=== PATIENT | female | born 1940 | race Caucasian/White ===

== ENCOUNTER 2017-05-14 18:30 | Inpatient (IN) | payer MEDICARE, OTHER ==
[~2017-05-14] VITALS: Ht 165.1 cm; Wt 45.4 kg
[~2017-05-14 18:30] MED LIST: AMBIEN5 MG ORAL; ATIVAN1 MG ORAL; BRIMONIDINE TART5 ML BOTH EYES; CAL-CITRATE W/200 MG GT; DiphenhydrAMINE 50mg/ml Inj ONE; EPINEPHrine 1mg/1ml Amp ONE; FERROUS SULFAT325 MG ORAL; FOLIC ACID1 MG ORAL; LEVAQUIN500 MG ORAL; MELATONIN3 M2 PO; MULTIVITAMINS1 EAC8 ORAL; ZYPREXA20 MG ORAL; ZYPREXA5 MG ORAL
[2017-05-14] MEDS ORDERED: Cefepime HCl 1 GM in NS 55 ML IV SCH (19:00)
[2017-05-14] MEDS ORDERED: NS 1000ml 1,400 ML IVLG ONE (19:00)
[2017-05-14] MEDS ORDERED: Cefepime 1gm vial ONE (19:50)
[2017-05-14] MEDS ORDERED: ZyPREXA Zydis 10mg tab ORAL ONE (20:00)
[2017-05-14 20:12] LABS: MEAN CORPUSCULAR HEMOGLOBIN 28.4 PG (27.0-31.0); MEAN CORPUSCULAR HGB CONC 32.6 G/DL (32.0-36.0); MEAN CORPUSCULAR VOLUME 87 FL (80-99); MEAN PLATELET VOLUME 6.3 FL (6.5-10.1); PLATELET COUNT 209 K/UL (150-450); RED BLOOD COUNT 3.01 M/UL (4.20-5.40); RED CELL DISTRIBUTION WIDTH 15.2 % (11.6-14.8)
[2017-05-14 20:31] LABS: TROPONIN I < 0.30 ng/mL (<=0.30)
[2017-05-14 20:34] LABS: ALANINE AMINOTRANSFERASE 8 U/L (3-33); ALBUMIN/GLOBULIN RATIO 0.5 (1.0-2.7); ANION GAP 13 (5-15); ASPARTATE AMINO TRANSFERASE 13 U/L (5-40); CALCIUM 9.4 mg/dL (8.6-10.2); CARBON DIOXIDE 25 mEQ/L (20-30); CHLORIDE 104 mEQ/L (98-107); CREATININE 1.5 mg/dL (0.5-0.9); HEMOLYSIS 0; POTASSIUM 4.6 mEQ/L (3.4-4.9); SODIUM 142 mEQ/L (135-145); TOTAL PROTEIN 9.1 g/dL (6.6-8.7)
--- NOTE | 2017-05-14 20:42 | Emergency Room Report ---
History of Present Illness General Chief Complaint: Abnormal Labs Source: Patient Present Illness HPI This patient presents from a custodial facility. She has a history of severe dementia. She presents for abnormal labs. The patient has a history of frequent urinary tract infections. She has been on Macrobid for the past 10 days it. She continues to have an elevated white blood cell count. She also has a urinary stent and had planned removal but it has not been removed yet. The patient has no specific complaints. She also has a history of schizophrenia. She has a history of chronic kidney disease. There are no other complaints. Allergies: Coded Allergies: MORPHINE (Verified Allergy, Unknown, 07/18/09) Patient History Past Medical History: see triage record, old chart reviewed, psych hx, renal disease Past Surgical History: other - ureteral stent Social History: Denies: smoking, alcohol use, drug use Reviewed Nursing Documentation: PMH: Agreed, PSxH: Agreed Nursing Documentation-PMH Hx Cardiac Problems: Yes - right rib fx, anemia History Of Psychiatric Problem: Yes Review of Systems All Other Systems: negative except mentioned in HPI Physical Exam Vital Signs Date Time Temp Pulse Resp B/P (MAP) Pulse Ox O2 Delivery O2 Flow Rate FiO2 05/14/17 18:33 97.3 68 18 152/82 96 Room Air Sp02 EP Interpretation: reviewed, normal General Appearance: no apparent distress, alert, GCS 15, non-toxic Head: normocephalic, atraumatic Eyes: bilateral eye normal inspection, bilateral eye PERRL ENT: hearing grossly normal, normal pharynx, no angioedema, normal voice Neck: full range of motion, supple/symm/no masses Respiratory: chest non-tender, lungs clear, normal breath sounds, speaking full sentences Cardiovascular #1: regular rate, rhythm, no edema Gastrointestinal: normal bowel sounds, non tender, soft, non-distended, no guarding, no rebound Rectal: deferred Musculoskeletal: back normal, normal range of motion, non-tender Neurologic: alert, responsive, motor strength/tone normal, speech normal, other - Oriented to self only Psychiatric: judgement/insight normal, memory normal, mood/affect normal, no suicidal/homicidal ideation Skin: warm/dry, well hydrated, other - See RN skin exam Medical Decision Making Diagnostic Impression: Primary Impression: UTI (urinary tract infection) Additional Impressions: Leukocytosis Anemia ER Course This patient has been on oral antibiotics at a custodial facility for ongoing recurrent urinary tract infection. She is a refill stent. She continues to have a urinary tract infection and has a leukocytosis. She is given broad-spectrum antibiotics and IV fluids. She is stable and well appearing overall. No evidence of sepsis at this time. The patient will be admitted for further evaluation and treatment of her resistant urinary tract infection and further evaluation by urology. Laboratory Tests Test 05/14/17 19:40 05/14/17 21:20 White Blood Count 13.0 K/UL (4.8-10.8) H Red Blood Count 3.01 M/UL (4.20-5.40) L Hemoglobin 8.6 G/DL (12.0-16.0) L Hematocrit 26.2 % (37.0-47.0) L Mean Corpuscular Volume 87 FL (80-99) Mean Corpuscular Hemoglobin 28.4 PG (27.0-31.0) Mean Corpuscular Hemoglobin Concent 32.6 G/DL (32.0-36.0) Red Cell Distribution Width 15.2 % (11.6-14.8) H Platelet Count 209 K/UL (150-450) Mean Platelet Volume 6.3 FL (6.5-10.1) L Neutrophils (%) (Auto) % (45.0-75.0) Lymphocytes (%) (Auto) % (20.0-45.0) Monocytes (%) (Auto) % (1.0-10.0) Eosinophils (%) (Auto) % (0.0-3.0) Basophils (%) (Auto) % (0.0-2.0) Differential Total Cells Counted 100 Neutrophils % (Manual) 38 % (45-75) L Lymphocytes % (Manual) 55 % (20-45) H Monocytes % (Manual) 5 % (1-10) Eosinophils % (Manual) 2 % (0-3) Basophils % (Manual) 0 % (0-2) Band Neutrophils 0 % (0-8) Platelet Estimate Adequate Platelet Morphology Normal Hypochromasia 1+ Anisocytosis 1+ Sodium Level 142 mEQ/L (135-145) Potassium Level 4.6 mEQ/L (3.4-4.9) Chloride Level 104 mEQ/L (98-107) Carbon Dioxide Level 25 mEQ/L (20-30) Anion Gap 13 (5-15) Blood Urea Nitrogen 38 mg/dL (7-23) H Creatinine 1.5 mg/dL (0.5-0.9) H Estimate Glomerular Filtration Rate mL/min (>60) Glucose Level 96 mg/dL (74-106) Lactic Acid Level 1.50 mmol/L (0.66-2.22) Calcium Level 9.4 mg/dL (8.6-10.2) Total Bilirubin 0.3 mg/dL (0.0-1.2) Aspartate Amino Transferase (AST) 13 U/L (5-40) Alanine Aminotransferase (ALT) 8 U/L (3-33) Alkaline Phosphatase 61 U/L (35-104) Total Creatine Kinase 36 U/L (26-140) Creatine Kinase MB 2.4 ng/mL (< 3.8) Creatine Kinase MB Relative Index 6.6 Troponin I < 0.30 ng/mL (<=0.30) Total Protein 9.1 g/dL (6.6-8.7) H Albumin 3.2 g/dL (3.5-5.2) L Globulin 5.9 g/dL Albumin/Globulin Ratio 0.5 (1.0-2.7) L Urine Color Red Urine Appearance Slightly cloudy Urine pH 8 (4.5-8.0) Urine Specific Grand Chain 1.015 (1.005-1.035) Urine Protein 4+ (NEGATIVE) H Urine Glucose (UA) Negative (NEGATIVE) Urine Ketones Negative (NEGATIVE) Urine Occult Blood 5+ (NEGATIVE) H Urine Nitrite Negative (NEGATIVE) Urine Bilirubin Negative (NEGATIVE) Urine Urobilinogen Normal MG/DL (0.0-1.0) Urine Leukocyte Esterase 3+ (NEGATIVE) H Urine RBC 60-80 /HPF (0 - 2) H Urine WBC 10-15 /HPF (0 - 2) H Urine Squamous Epithelial Cells Few /LPF (NONE/OCC) Urine Amorphous Sediment Few /LPF (NONE) H Urine Bacteria Moderate /HPF (NONE) H EKG Diagnostic Results Rate: normal Rhythm: NSR ST Segments: no acute changes Rhythm Strip Diag. Results EP Interpretation: yes Rate: 60's Rhythm: NSR, no PVC's, no ectopy Last Vital Signs Date Time Temp Pulse Resp B/P (MAP) Pulse Ox O2 Delivery O2 Flow Rate FiO2 05/14/17 18:33 97.3 68 18 152/82 96 Room Air Disposition: ADMITTED INPATIENT Condition: Stable Referrals: Pedro Ma MD (PCP) AIMEE ALLEN D.O. May 14, 2017 20:42
[2017-05-14 20:44] LABS: CKMB 2.4 ng/mL (< 3.8)
[2017-05-14 21:12] VITALS: BP 114/52
[2017-05-14 21:13] LABS: ANISOCYTOSIS 1+; BAND NEUTROPHILS % (MANUAL) 0 % (0-8); BASOPHILS % (MANUAL) 0 % (0-2); EOSINOPHILS % (MANUAL) 2 % (0-3); HYPOCHROMASIA 1+; LYMPHOCYTES % (MANUAL) 55 % (20-45); NEUTROPHILS % (MANUAL) 38 % (45-75); PLATELET ESTIMATE ADEQUATE; PLATELET MORPHOLOGY NORMAL; TOTAL CELLS COUNTED 100
[2017-05-14 21:31] LABS: KETONES,URINE NEGATIVE (NEGATIVE); LEUKOCYTE ESTERASE ,URINE 3+ (NEGATIVE); NITRITE,URINE NEGATIVE (NEGATIVE); PH,URINE 8 (4.5-8.0); PROTEIN,URINE 4+ (NEGATIVE); UROBILINOGEN,URINE NORMAL MG/DL (0.0-1.0)
[2017-05-14 21:42] LABS: APPEARANCE,URINE SLIGHTLY CLOUDY
[2017-05-14 21:58] LABS: RBC,URINE 60-80 /HPF (0 - 2)
[2017-05-14 21:59] LABS: AMORPHOUS SEDIMENT,UR FEW /LPF; BACTERIA,URINE MODERATE /HPF; SQUAMOUS EPITHELIAL CELL,UR FEW /LPF (NONE/OCC)
[2017-05-14 22:16] VITALS: BP 115/49
[2017-05-14] MEDS ORDERED: VITAMIN C500 M1 ORAL (22:36)
[2017-05-14] MEDS ORDERED: DOCUSATE SODIU100 MG ORAL (22:36)
[2017-05-14] MEDS ORDERED: BISACODYL5 MG ORAL (22:36)
[2017-05-14] MEDS ORDERED: CRANBERRY450 M4 PO (22:36)
[2017-05-14] MEDS ORDERED: TYLENOL EXTRA500 MG ORAL (22:36)
[2017-05-14] MEDS ORDERED: MILK OF MA2400 MG/10 ORAL (22:36)
[2017-05-15] MEDS ORDERED: LORazepam 1mg tab ORAL PRN (00:30)
[2017-05-15] MEDS ORDERED: Zolpidem 5mg tab ORAL PRN (00:30)
[2017-05-15] MEDS ORDERED: Norco 5mg/325mg tab ORAL PRN (00:30)
[2017-05-15] MEDS: D5NS 1,000 ML IV SCH ×2 (02:48→14:30)
[2017-05-15] MEDS ORDERED: Vancomycin 750mg/NS 250ml IVPB ONE (03:00)
[2017-05-15] MEDS: Enoxaparin 30mg Inj SUBQ SCH (09:00)
[2017-05-15] MEDS: Multivitamin w/Minerals tab ORAL SCH (09:00)
[2017-05-15] MEDS: Brimonidine 0.2% Opth Sol BOTH EYES SCH ×3 (09:00→18:00)
[2017-05-15] MEDS: Ascorbic Acid 500mg tab ORAL SCH (09:26)
[2017-05-15] MEDS: Bisacodyl EC 5mg tab ORAL SCH (09:26)
[2017-05-15] MEDS: Docusate 100mg cap ORAL SCH ×2 (09:26→18:00)
[2017-05-15] MEDS ORDERED: Haloperidol 5mg/ml Inj IM PRN (10:45)
[2017-05-15] MEDS: Haloperidol 5mg/ml Inj IM PRN (14:53)
--- NOTE | 2017-05-15 15:16 | History & Physical ---
History and Physical History & Physicial seen and examined. Dictation # [id number] Pedro Ma MD May 15, 2017 15:16
--- NOTE | 2017-05-15 17:57 | Consultation ---
Consult Note Consult Note # [id number] YANG AL M.D. May 15, 2017 17:57
[2017-05-15] MEDS ORDERED: Cefepime HCl 1 GM in D5W 55 ML IVPB SCH (20:00)
[2017-05-15] MEDS: Milk of Magnesia 30ml Ud ORAL SCH (20:30)
--- NOTE | 2017-05-15 23:24 | Consultation ---
History of Present Illness General Chief Complaint: Abnormal Labs Present Illness HPI 77 yo female patient presents from a shelter facility. She has a history of dementia. She presents for abnormal labs. The patient has a history of frequent urinary tract infections, on Macrobid for the past 10 days it. the pt has been refusing care and refused meds. the pt is on 1:1. pt has cognitive impairment and is agitated. the pt lacks capacity Allergies: Coded Allergies: MORPHINE (Verified Allergy, Unknown, 07/18/09) Medication History Scheduled Ascorbic Acid* (Vitamin C*), 500 MG ORAL DAILY, (Reported) Bisacodyl* (Dulcolax*), 10 MG ORAL DAILY, (Reported) Brimonidine Tartrate* (Alphagan*), 1 DROP BOTH EYES TID, (Reported) Cranberry Fruit Concentrate (Cranberry), 450 MG PO BID, (Reported) Docusate Sodium* (Docusate Sodium*), 100 MG ORAL TWICE A DAY, (Reported) Ferrous Sulfate* (Ferrous Sulfate*), 325 MG ORAL THREE TIMES A DAY, (Reported) Folic Acid* (Folic Acid*), 1 MG ORAL DAILY, (Reported) Levofloxacin* (Levaquin*), 500 MG ORAL DAILY, (Reported) Magnesium Hydroxide* (Milk Of Magnesia*), 30 ML ORAL BEDTIME, (Reported) Multivitamin With Minerals (Multivitamins With Minerals*), 1 TAB ORAL DAILY, ( Reported) Olanzapine (Zyprexa), 20 MG ORAL BEDTIME, (Reported) Olanzapine* (Zyprexa*), 5 MG ORAL TID, (Reported) Scheduled PRN Acetaminophen* (Tylenol Extra Strength*), 650 MG ORAL Q4HR PRN for Mild Pain/ Temp > 100.5, (Reported) Lorazepam* (Ativan*), 1 MG ORAL Q4HR PRN for For Anxiety, (Reported) Zolpidem Tartrate* (Ambien*), 5 MG ORAL BEDTIME PRN for Insomnia, (Reported) Miscellaneous Medications Calcium Carbonate (Calcium Carbonate), 500 MG GT, (Reported) Melatonin (Melatonin), 3 MG PO, (Reported) Patient History Limited by: medical condition History Provided By: Patient, Medical Record, PMD Healthcare decision maker Resuscitation status Full Code Advanced Directive on File Yes Past Medical/Surgical History Past Medical/Surgical History: (1) Anemia (2) UTI (urinary tract infection) (3) Leukocytosis Review of Systems Constitutional: Reports: malaise, weakness Psychiatric: Reports: prior hx, anxiety, depressed feelings, emotional problems Physical Exam General Appearance: no apparent distress, alert, confused, agitated, thin Neurologic: alert, oriented x 3, responsive, depressed affect Height (Feet): 5 Height (Inches): 5.00 Weight (Pounds): 100 Medications Current Medications Medications (Trade) Dose Ordered Sig/Marcos Route PRN Reason Start Time Stop Time Status Last Admin Dose Admin Acetaminophen (Tylenol) 650 mg Q4H PRN ORAL Mild Pain/Temp > 100.5 05/15/17 00:30 06/14/17 00:29 Acetaminophen/ Hydrocodone Bitart ([place] 5/325) 1 tab Q6H PRN ORAL Severe Pain (Pain Scale 7-10) 05/15/17 00:30 05/22/17 00:29 Ascorbic Acid (Vitamin C) 500 mg DAILY ORAL 05/15/17 09:00 06/14/17 08:59 05/15/17 09:26 Bisacodyl (Dulcolax) 10 mg DAILY ORAL 05/15/17 09:00 06/14/17 08:59 05/15/17 09:26 Brimonidine Tartrate (Alphagan) 1 drop TID BOTH EYES 05/15/17 09:00 06/14/17 08:59 Dextrose/Sodium Chloride 1,000 ml @ 80 mls/hr [id number] IV 05/15/17 02:00 06/14/17 01:59 05/15/17 02:48 Docusate Sodium (Colace) 100 mg TWICE A DAY ORAL 05/15/17 09:00 06/14/17 08:59 05/15/17 09:26 Enoxaparin Sodium (Lovenox) 30 mg DAILY SUBQ 05/15/17 09:00 06/14/17 08:59 Ferrous Sulfate (Feosol) 325 mg THREE TIMES A DAY ORAL 05/15/17 09:00 06/14/17 08:59 05/15/17 09:26 Folic Acid (Folate) 1 mg DAILY ORAL 05/15/17 09:00 06/14/17 08:59 Haloperidol Lactate (Haldol) 5 mg Q6H PRN IM Agitation 05/15/17 16:45 06/14/17 16:44 05/15/17 14:53 Levofloxacin (Levaquin) 750 mg Q48H ORAL 05/15/17 11:00 05/22/17 10:59 Lorazepam (Ativan) 1 mg Q4H PRN ORAL For Anxiety 05/15/17 01:45 05/22/17 01:44 Magnesium Hydroxide (Mom) 30 ml BEDTIME ORAL 05/15/17 21:00 06/14/17 20:59 Multivitamins Therapeutic (Therapeutic Multivitamin) 1 ea DAILY ORAL 05/15/17 09:00 06/14/17 08:59 Olanzapine (ZyPREXA) 5 mg TID ORAL 05/15/17 09:00 06/14/17 08:59 05/15/17 09:26 Pantoprazole (Protonix) 40 mg DAILY ORAL 05/15/17 09:00 06/14/17 08:59 05/15/17 09:26 Zolpidem Tartrate (Ambien) 5 mg BEDTIME PRN ORAL Insomnia 05/15/17 00:30 05/22/17 00:29 Assessment/Plan Status: unchanged Assessment/Plan haldol im encephalopathy Manolo Reyes M.D. May 15, 2017 23:24
--- NOTE | 2017-05-16 00:16 | History and Physical Report ---
DATE OF ADMISSION: 05/14/2017 SOURCE OF INFORMATION: EMR. HISTORY OF PRESENT ILLNESS: The patient is a 77-year-old white female. Currently, lives in a senior care. She is stent post stent placement in the ureter secondary to obstructive uropathy. The patient was found to have abnormal blood work with the leukocytosis. The patient was presented and transferred for additional evaluation at the time of evaluation. PAST MEDICAL HISTORY: Anemia, obstructive uropathy at the level of urethra, psychiatric disorder, and insomnia. PAST SURGICAL HISTORY: Ureteral stent placement about three to four months ago. MEDICATIONS: Current hospital medications including , ferrous sulfate, Levaquin, and melatonin. ALLERGIES: To morphine. SOCIAL HISTORY: The patient is currently resident of a [facility] facility. The patient denies any history of smoking, alcohol abuse, or drug abuse. REVIEW OF SYSTEMS: Shows the patient denies chest pain or shortness of breath. The patient is not verbally communicate voluntarily. Limited source of information. All 12 elements of review of system are reviewed and as follows. Pertinent negatives and positives as detailed above. PHYSICAL EXAMINATION: VITAL SIGNS: Blood pressure 150/80, temperature 98.2 degrees, pulse oximetry 98% on room air, respiratory rate 18, and pulse rate 70 to 80. HEAD AND NECK: Atraumatic and normocephalic. CHEST: Clear to auscultation. Remainder of examination cannot be obtained as the patient refused. LABORATORY AND DIAGNOSTIC DATA: Labs dated 05/14/2017 showed WBC 13, hemoglobin 8.6, and platelets 209,000. Sodium 142, potassium 4.6, BUN 38, and creatinine 1.5. Total protein 9.1. Urinalysis shows WBC 10-15, occult blood 5+, protein 4+, and bacteria moderate. ASSESSMENT: 1. Pyelonephritis. 2. Obstructive uropathy at the level of the ureter, status post stent placement. 3. Hypertension. 4. Renal failure likely acute on chronic. 5. Anemia. 6. Refusal of medical care. 7. Psychiatric disorder. 8. Gastrointestinal and deep vein thrombosis prophylaxis. PLAN OF CARE: We will start the empiric antibiotic regimens of vancomycin and cefepime. Infectious Disease, Dr. Baeza and Urology, Dr. Aneesh Shaikh are consulted and notified. Psychiatrist, Dr. Reyes notified. We will resume the senior care medications. We will monitor the hemoglobin. Pedro Ma M.D. DR: Michelle JOB#: [id number] CC:
[2017-05-16] MEDS: D5NS 1,000 ML IV SCH ×2 (02:02→18:41)
[2017-05-16] MEDS ORDERED: Vancomycin 500mg/D5W 110ml IVPB SCH ×2 (03:00)
--- NOTE | 2017-05-16 03:15 | Consultation ---
DATE OF CONSULTATION: 05/15/2017 UROLOGY CONSULTATION ATTENDING/CONSULTING PHYSICIAN: Pedro Ma M.D. CHIEF COMPLAINT AND HISTORY OF PRESENT ILLNESS: I was asked by Dr. Ma to evaluate this unfortunate 77-year-old female regarding history of urinary tract infection/pyelonephritis. Briefly, the patient has a history of advanced dementia and cannot provide much information. She has a history of recurrent urinary tract infections and presents from a retirement facility with recurrent urinary tract infection. She has been on Macrobid for the last 10 days for the same. She has a urinary stent in place for stone disease and has plan to removal for same, but has not been removed yet. Given the above, I was asked to evaluate the patient. PAST MEDICAL HISTORY: 1. Dementia. 2. Schizophrenia. 3. Chronic renal insufficiency. 4. Urinary tract infection. 5. Nephrolithiasis. PAST SURGICAL HISTORY: Cystoscopy with ureteral stent placement. MEDICATIONS: Please see the chart for current medications and administration details. ALLERGIES: Include morphine. SOCIAL HISTORY: Unremarkable for tobacco, alcohol, or drug use. The patient is demented and lives in a retirement facility. FAMILY HISTORY: Noncontributory. REVIEW OF SYSTEMS: A 12-system review of systems cannot be done as the patient cannot cooperate with questioning. PHYSICAL EXAMINATION: GENERAL: The patient is an elderly female, resting comfortably, in no obvious distress. VITAL SIGNS: Afebrile, vital signs stable. HEENT: NC/AT. NECK: Supple. Full range of motion. CHEST: Within normal limits. ABDOMEN: Soft, nontender, and nondistended. EXTREMITIES: Warm and well perfused. No cyanosis, clubbing, or edema. BACK: No apparent CVA tenderness to percussion. NEUROLOGIC: Notable for dementia. LABORATORY DATA: Sodium 142, potassium 4.6, chloride 104, bicarbonate 25, BUN 38, creatinine 1.8, and glucose 96. Lactic acid 1.5. LFTs within normal limits. Alkaline phosphatase 61. Troponin negative. White blood cell count 13.0, hematocrit 26.2, and platelets 209,000. Urinalysis, specific gravity 1.015 and pH 8.0. Dip test notable for 4+ protein, 5+ occult blood, and 3+ leukocyte esterase. Microanalysis with 60 to 80 red blood cells per high-power field, 10 to 15 white blood cells per high-power field, and moderate bacteria seen. Urine culture is pending. DIAGNOSTIC IMAGING: None. ASSESSMENT AND PLAN: In summary, the patient is a 77-year-old female with a history of nephrolithiasis, status post double-J stent placement for the same. She is scheduled for followup with a urologist for removal of the same. She has a history of recurrent urinary tract infections and now presents with a urinary tract infection. Physical exam is essentially unremarkable. Laboratory data reveals evidence of a ureteral stent in place and also possible urinary tract infection. Culture is pending. There is no relevant diagnostic imaging. We should continue this patient on antibiotics until her urine culture returns, at which point, the antibiotics should be adjusted as necessary and she can be discharged on oral antibiotics. Once she is discharged and her infection is improved, she can follow up with her urologist, who put the stent in for stent removal as appropriate. Removing the stent at this time in an infected patient with possible obstruction from kidney stones can be potentially dangerous if the infection accumulates behind the stent. Thank you for allowing me to participate in the care of this nice lady. Please do not hesitate to contact me with any questions that you may further have regarding her care. I will be available to see her with you as needed. Aneesh Shaikh M.D. DR: ADARSH JOB#: [id number] CC:
[2017-05-16 07:23] LABS: BASOPHILS % (AUTO) 0.5 % (0.0-2.0); EOSINOPHILS % (AUTO) 0.7 % (0.0-3.0); LYMPHOCYTES % (AUTO) 51.4 % (20.0-45.0); MEAN CORPUSCULAR HEMOGLOBIN 26.5 PG (27.0-31.0); MEAN CORPUSCULAR HGB CONC 30.4 G/DL (32.0-36.0); MEAN CORPUSCULAR VOLUME 87 FL (80-99); MEAN PLATELET VOLUME 6.2 FL (6.5-10.1); MONOCYTES % (AUTO) 2.7 % (1.0-10.0); NEUTROPHILS % (AUTO) 44.7 % (45.0-75.0); PLATELET COUNT 212 K/UL (150-450); RED BLOOD COUNT 3.04 M/UL (4.20-5.40); RED CELL DISTRIBUTION WIDTH 14.9 % (11.6-14.8); WHITE BLOOD COUNT 11.4 K/UL (4.8-10.8)
[2017-05-16 07:48] LABS: ALANINE AMINOTRANSFERASE 9 U/L (3-33); ALBUMIN/GLOBULIN RATIO 0.4 (1.0-2.7); ANION GAP 13 (5-15); ASPARTATE AMINO TRANSFERASE 16 U/L (5-40); CALCIUM 9.3 mg/dL (8.6-10.2); CARBON DIOXIDE 23 mEQ/L (20-30); CHLORIDE 106 mEQ/L (98-107); CREATININE 1.3 mg/dL (0.5-0.9); HEMOLYSIS 1; POTASSIUM 4.1 mEQ/L (3.4-4.9); SODIUM 142 mEQ/L (135-145); TOTAL PROTEIN 8.6 g/dL (6.6-8.7)
[2017-05-16] MEDS: Bisacodyl EC 5mg tab ORAL SCH (09:00)
[2017-05-16] MEDS: Enoxaparin 30mg Inj SUBQ SCH (09:00)
[2017-05-16] MEDS: Ascorbic Acid 500mg tab ORAL SCH (09:00)
[2017-05-16] MEDS: Brimonidine 0.2% Opth Sol BOTH EYES SCH ×3 (09:00→18:40)
[2017-05-16] MEDS: Docusate 100mg cap ORAL SCH ×2 (09:00→18:40)
[2017-05-16] MEDS: Multivitamin w/Minerals tab ORAL SCH (09:00)
[2017-05-16] MEDS ORDERED: LORazepam Inj 2mg/ml 1ml IM ONE (10:45)
[2017-05-16] MEDS: Haloperidol 5mg/ml Inj IM PRN (11:01)
--- NOTE | 2017-05-16 11:15 | Consultation ---
DATE OF CONSULTATION: INFECTIOUS DISEASES CONSULTATION REFERRING PHYSICIAN: Pedro Ma M.D. REASON FOR CONSULTATION: Evaluation of the patient for sepsis, urinary tract infection, antibiotic management. HISTORY OF PRESENT ILLNESS: The patient is a 77-year-old poor historian, uncooperative, with severe dementia, who was admitted to this medical center with the impression of urinary tract infection. Apparently, the patient was on 10 days. However, the patient has leukocytosis and was admitted with the impression of urinary tract infection. Infectious Disease consultation has been requested for further evaluation of the patient and antibiotic management. PAST MEDICAL HISTORY: 1. Schizophrenia. 2. History of recent urinary tract infection. 3. Hypertension. 4. History of CKD. 5. Bipolar disorder. 6. Depression. 7. Anemia. 8. Anxiety. MEDICATIONS: Vancomycin and Levaquin. ALLERGIES: Morphine. SOCIAL HISTORY: The patient lives in a [facility]ci. FAMILY HISTORY: Unavailable. REVIEW OF SYSTEMS: The patient is uncooperative. PHYSICAL EXAMINATION: VITAL SIGNS: Temperature is 97.4 degrees, pulse 70, respiratory rate 18, and blood pressure 115/49. HEENT: No pale conjunctivae. CHEST: The patient is uncooperative with the exam, refused. ABDOMEN: The patient refused exam. : The patient refused. EXTREMITIES: No cyanosis at this time. No edema. NEUROLOGIC: Awake and confused. LABORATORY AND DIAGNOSTIC DATA: White blood cells 13, hemoglobin 8.6, and platelets 209,000. UA, 60 to 80 red blood cells and 10 to 15 white blood cells. BUN 30 and creatinine 1.4. ALT, AST, and alkaline phosphatase unremarkable. Chest x-ray, minimal interstitial congestion is not excluded. Ultrasound of the abdomen is pending. Blood and urine culture is pending. ASSESSMENT: The patient is a 77-year-old female with multiple medical problems who has: 1. Leukocytosis. 2. Hematuria. 3. Probable urinary tract infection. 4. Rule out bacteremia. 5. Rule out renal stone or obstruction/urinary tract cancer. PLAN: 1. We will continue the patient on Levaquin. 2. Monitor CBC. 3. Monitor BMP. 4. Monitor cultures (blood, urine). 5. We will follow ultrasound of the abdomen and pelvis results. 6. Based on the patient's clinical course and labs, we will do further recommendations. Thank you, Dr. Polanco, for allowing me to participate in the care of this patient. I will follow the patient with you during this hospitalization. Ernesto Baeza M.D. DR: Ana JOB#: [id number] CC:
--- NOTE | 2017-05-16 15:01 | Geriatric Progress Note ---
Assessment/Plan Assessment/Plan psychosis, lacks capacity to make decision. no next of keen . -restraints prn -haldol Im prn -zyprexa 5mg qhs Subjective Mood/Memory: Reports: prior hx, anxiety, emotional problems - refusing care and treatment Psychiatric: Reports: hallucinations Geriatric Geriatric Laboratory Tests Test 05/16/17 05:15 White Blood Count 11.4 K/UL (4.8-10.8) H Red Blood Count 3.04 M/UL (4.20-5.40) L Hemoglobin 8.1 G/DL (12.0-16.0) L Hematocrit 26.5 % (37.0-47.0) L Mean Corpuscular Volume 87 FL (80-99) Mean Corpuscular Hemoglobin 26.5 PG (27.0-31.0) L Mean Corpuscular Hemoglobin Concent 30.4 G/DL (32.0-36.0) L Red Cell Distribution Width 14.9 % (11.6-14.8) H Platelet Count 212 K/UL (150-450) Mean Platelet Volume 6.2 FL (6.5-10.1) L Neutrophils (%) (Auto) 44.7 % (45.0-75.0) L Lymphocytes (%) (Auto) 51.4 % (20.0-45.0) H Monocytes (%) (Auto) 2.7 % (1.0-10.0) Eosinophils (%) (Auto) 0.7 % (0.0-3.0) Basophils (%) (Auto) 0.5 % (0.0-2.0) Sodium Level 142 mEQ/L (135-145) Potassium Level 4.1 mEQ/L (3.4-4.9) Chloride Level 106 mEQ/L (98-107) Carbon Dioxide Level 23 mEQ/L (20-30) Anion Gap 13 (5-15) Blood Urea Nitrogen 33 mg/dL (7-23) H Creatinine 1.3 mg/dL (0.5-0.9) H Estimat Glomerular Filtration Rate mL/min (>60) Glucose Level 75 mg/dL (74-106) Calcium Level 9.3 mg/dL (8.6-10.2) Total Bilirubin 0.4 mg/dL (0.0-1.2) Aspartate Amino Transf (AST/SGOT) 16 U/L (5-40) Alanine Aminotransferase (ALT/SGPT) 9 U/L (3-33) Alkaline Phosphatase 66 U/L (35-104) Total Protein 8.6 g/dL (6.6-8.7) Albumin 2.8 g/dL (3.5-5.2) L Globulin 5.8 g/dL Albumin/Globulin Ratio 0.4 (1.0-2.7) L Current Medications Medications (Trade) Dose Ordered Sig/Marcos Route PRN Reason Start Time Stop Time Status Last Admin Dose Admin Acetaminophen (Tylenol) 650 mg Q4H PRN ORAL Mild Pain/Temp > 100.5 05/15/17 00:30 06/14/17 00:29 Acetaminophen/ Hydrocodone Bitart ([place] 5/325) 1 tab Q6H PRN ORAL Severe Pain (Pain Scale 7-10) 05/15/17 00:30 05/22/17 00:29 Ascorbic Acid (Vitamin C) 500 mg DAILY ORAL 05/15/17 09:00 06/14/17 08:59 05/15/17 09:26 Bisacodyl (Dulcolax) 10 mg DAILY ORAL 05/15/17 09:00 06/14/17 08:59 05/15/17 09:26 Brimonidine Tartrate (Alphagan) 1 drop TID BOTH EYES 05/15/17 09:00 06/14/17 08:59 05/16/17 13:05 Dextrose/Sodium Chloride 1,000 ml @ 80 mls/hr [id number] IV 05/15/17 02:00 06/14/17 01:59 05/15/17 02:48 Docusate Sodium (Colace) 100 mg TWICE A DAY ORAL 05/15/17 09:00 06/14/17 08:59 05/15/17 09:26 Enoxaparin Sodium (Lovenox) 30 mg DAILY SUBQ 05/15/17 09:00 06/14/17 08:59 Ferrous Sulfate (Feosol) 325 mg THREE TIMES A DAY ORAL 05/15/17 09:00 06/14/17 08:59 05/16/17 13:04 Folic Acid (Folate) 1 mg DAILY ORAL 05/15/17 09:00 06/14/17 08:59 Haloperidol Lactate (Haldol) 5 mg Q6H PRN IM Agitation 05/15/17 16:45 06/14/17 16:44 05/16/17 11:01 Levofloxacin (Levaquin) 750 mg Q48H ORAL 05/15/17 11:00 05/22/17 10:59 Lorazepam (Ativan) 1 mg Q4H PRN ORAL For Anxiety 05/15/17 01:45 05/22/17 01:44 Magnesium Hydroxide (Mom) 30 ml BEDTIME ORAL 05/15/17 21:00 06/14/17 20:59 Multivitamins Therapeutic (Therapeutic Multivitamin) 1 ea DAILY ORAL 05/15/17 09:00 06/14/17 08:59 Olanzapine (ZyPREXA) 5 mg TID ORAL 05/15/17 09:00 06/14/17 08:59 05/16/17 13:04 Pantoprazole (Protonix) 40 mg DAILY ORAL 05/15/17 09:00 06/14/17 08:59 05/15/17 09:26 Zolpidem Tartrate (Ambien) 5 mg BEDTIME PRN ORAL Insomnia 05/15/17 00:30 05/22/17 00:29 Height (Feet): 5 Height (Inches): 5.00 Weight (Pounds): 100 General Appearance: alert, good eye contact, moderate distress, cachetic Neurologic: alert, responsive Psychiatric Behavior: uncooperative, psychomotor agitation Language/Speech: intact Orientation: disoriented Affect: restricted Thought Content: auditory hallucinations, grandiose hallucinations, persecutory delusions Manolo Reyes M.D. May 16, 2017 15:01
--- NOTE | 2017-05-16 16:06 | General Progress Note ---
Assessment/Plan Status: unchanged Assessment/Plan 1. Pyelonephritis. 2. Obstructive uropathy at the level of the ureter, status post stent placement. 3. Hypertension. 4. Renal failure likely acute on chronic. 5. AnemiaAcute on chornic 6. Refusal of medical care. 7. Psychiatric disorder. 8. No Capacity for making medical decisions. 8. Gastrointestinal and deep vein thrombosis prophylaxis. Plan; Given the Emergency Nature of current medical problem and potential life threatening consequence of refusing treatment, It is MEDICALLY JUSTIFIED to restraint and provide treament at this time Subjective ROS Limited/Unobtainable: Yes Allergies: Coded Allergies: MORPHINE (Verified Allergy, Unknown, 07/18/09) Objective Laboratory Tests 05/16/17 05:15: White Blood Count 11.4H, Red Blood Count 3.04L, Hemoglobin 8.1L, Hematocrit 26.5L, Mean Corpuscular Volume 87, Mean Corpuscular Hemoglobin 26.5L, Mean Corpuscular Hemoglobin Concent 30.4L, Red Cell Distribution Width 14.9H, Platelet Count 212, Mean Platelet Volume 6.2L, Neutrophils (%) (Auto) 44.7L, Lymphocytes (%) (Auto) 51.4H, Monocytes (%) (Auto) 2.7, Eosinophils (%) (Auto) 0.7, Basophils (%) (Auto) 0.5, Sodium Level 142, Potassium Level 4.1, Chloride Level 106, Carbon Dioxide Level 23, Anion Gap 13, Blood Urea Nitrogen 33H, Creatinine 1.3H, Estimat Glomerular Filtration Rate , Glucose Level 75, Calcium Level 9.3, Total Bilirubin 0.4, Aspartate Amino Transf (AST/SGOT) 16, Alanine Aminotransferase (ALT/SGPT) 9, Alkaline Phosphatase 66, Total Protein 8.6, Albumin 2.8L, Globulin 5.8, Albumin/Globulin Ratio 0.4L Height (Feet): 5 Height (Inches): 5.00 Weight (Pounds): 100 General Appearance: no apparent distress EENT: PERRL/EOMI Neck: supple Cardiovascular: normal rate Respiratory/Chest: lungs clear Abdomen: soft Extremities: other - atrophied musculature Neurologic: disoriented Pedro Ma MD May 16, 2017 16:06
[2017-05-16] MEDS ORDERED: Tubing IV Secondary IV ONE (17:39)
[2017-05-16] MEDS ORDERED: D5NS 1000ml IV ONE (17:39)
[2017-05-16 20:50] VITALS: BP 109/38
[2017-05-16] MEDS: Milk of Magnesia 30ml Ud ORAL SCH (21:47)
[2017-05-16] MEDS: ZyPREXA Zydis 5mg tab ORAL SCH (21:58)
[2017-05-16 23:59] VITALS: BP 110/55
[2017-05-17 02:41] LABS: MEAN CORPUSCULAR HEMOGLOBIN 27.2 PG (27.0-31.0); MEAN CORPUSCULAR HGB CONC 31.7 G/DL (32.0-36.0); MEAN CORPUSCULAR VOLUME 86 FL (80-99); MEAN PLATELET VOLUME 5.3 FL (6.5-10.1); PLATELET COUNT 216 K/UL (150-450); RED BLOOD COUNT 2.94 M/UL (4.20-5.40); RED CELL DISTRIBUTION WIDTH 14.5 % (11.6-14.8); WHITE BLOOD COUNT 11.8 K/UL (4.8-10.8)
[2017-05-17] MEDS: D5NS 1,000 ML IV SCH ×3 (03:02→18:30)
[2017-05-17 03:10] LABS: ALANINE AMINOTRANSFERASE 9 U/L (3-33); ALBUMIN/GLOBULIN RATIO 0.4 (1.0-2.7); ANION GAP 7 (5-15); ASPARTATE AMINO TRANSFERASE 19 U/L (5-40); CARBON DIOXIDE 25 mEQ/L (20-30); CHLORIDE 107 mEQ/L (98-107); CREATININE 1.6 mg/dL (0.5-0.9); HEMOLYSIS 0; POTASSIUM 4.1 mEQ/L (3.4-4.9); SODIUM 139 mEQ/L (135-145); TOTAL PROTEIN 8.2 g/dL (6.6-8.7)
[2017-05-17 04:00] VITALS: BP 129/50
[2017-05-17] MEDS: LORazepam 1mg tab ORAL PRN (09:42)
[2017-05-17] MEDS: Brimonidine 0.2% Opth Sol BOTH EYES SCH ×3 (09:43→17:59)
[2017-05-17] MEDS: Ascorbic Acid 500mg tab ORAL SCH (09:43)
[2017-05-17] MEDS: Docusate 100mg cap ORAL SCH ×2 (09:43→17:59)
[2017-05-17] MEDS: Bisacodyl EC 5mg tab ORAL SCH (09:43)
[2017-05-17] MEDS: Multivitamin w/Minerals tab ORAL SCH (09:44)
[2017-05-17] MEDS: Enoxaparin 30mg Inj SUBQ SCH (09:44)
[2017-05-17] MEDS: Haloperidol 5mg/ml Inj IM PRN (11:02)
--- NOTE | 2017-05-17 11:08 | Infectious Diseases Prog Note ---
Assessment/Plan Assessment/Plan ASSESSMENT: The patient is a 77-year-old female with Leukocytosis improving Probable urinary tract infection, UCx : Mixed GNR ( low count ) Hematuria.? hx of Urethral stent Schizophrenia History of recent urinary tract infection Hypertension History of CKD Bipolar disorder Depression Anemia Anxiety PLAN: continue the patient on Levaquin d# 4 / 7 Monitor CBC. Monitor BMP. Monitor cultures (blood, urine). ultrasound of the abdomen and pelvis results: P Uro is following Subjective Allergies: Coded Allergies: MORPHINE (Verified Allergy, Unknown, 07/18/09) Subjective confuse Objective Vital Signs Last 24 Hour Vital Signs Date Time Temp Pulse Resp B/P (MAP) Pulse Ox O2 Delivery O2 Flow Rate FiO2 05/17/17 05:10 97.5 61 05/17/17 04:00 96.8 57 20 129/50 96 Room Air 05/16/17 23:59 97.7 59 20 110/55 98 Room Air 05/16/17 20:50 98.7 70 19 109/38 98 Room Air Height (Feet): 5 Height (Inches): 5.00 Weight (Pounds): 100 HEENT: mucous membranes moist Respiratory/Chest: no respiratory distress Cardiovascular: normal rate Abdomen: soft, non tender Microbiology Date/Time Source Procedure Growth Status 05/14/17 19:45 Blood Blood Culture - Preliminary NO GROWTH AFTER 48 HOURS Resulted 05/14/17 19:35 Blood Blood Culture - Preliminary NO GROWTH AFTER 48 HOURS Resulted 05/14/17 21:20 Urine,Clean Catch Urine Culture - Final Mixed Gram Positive Organism Complete 05/14/17 22:22 Rectum VRE Culture - Final NO VANCOMYCIN RESISTANT ENTEROCOCCUS ... Complete Laboratory Tests Test 05/17/17 02:25 White Blood Count 11.8 K/UL (4.8-10.8) H Red Blood Count 2.94 M/UL (4.20-5.40) L Hemoglobin 8.0 G/DL (12.0-16.0) L Hematocrit 25.3 % (37.0-47.0) L Mean Corpuscular Volume 86 FL (80-99) Mean Corpuscular Hemoglobin 27.2 PG (27.0-31.0) Mean Corpuscular Hemoglobin Concent 31.7 G/DL (32.0-36.0) L Red Cell Distribution Width 14.5 % (11.6-14.8) Platelet Count 216 K/UL (150-450) Mean Platelet Volume 5.3 FL (6.5-10.1) L Neutrophils (%) (Auto) % (45.0-75.0) Lymphocytes (%) (Auto) % (20.0-45.0) Monocytes (%) (Auto) % (1.0-10.0) Eosinophils (%) (Auto) % (0.0-3.0) Basophils (%) (Auto) % (0.0-2.0) Sodium Level 139 mEQ/L (135-145) Potassium Level 4.1 mEQ/L (3.4-4.9) Chloride Level 107 mEQ/L (98-107) Carbon Dioxide Level 25 mEQ/L (20-30) Anion Gap 7 (5-15) Blood Urea Nitrogen 36 mg/dL (7-23) H Creatinine 1.6 mg/dL (0.5-0.9) H Estimat Glomerular Filtration Rate mL/min (>60) Glucose Level 114 mg/dL (74-106) H Calcium Level 9.0 mg/dL (8.6-10.2) Total Bilirubin 0.3 mg/dL (0.0-1.2) Aspartate Amino Transf (AST/SGOT) 19 U/L (5-40) Alanine Aminotransferase (ALT/SGPT) 9 U/L (3-33) Alkaline Phosphatase 53 U/L (35-104) Total Protein 8.2 g/dL (6.6-8.7) Albumin 2.6 g/dL (3.5-5.2) L Globulin 5.6 g/dL Albumin/Globulin Ratio 0.4 (1.0-2.7) L Vancomycin Level Trough 2.3 ug/mL (5.0-12.0) L Current Medications Medications (Trade) Dose Ordered Sig/Marcos Route PRN Reason Start Time Stop Time Status Last Admin Dose Admin Acetaminophen (Tylenol) 650 mg Q4H PRN ORAL Mild Pain/Temp > 100.5 05/15/17 00:30 06/14/17 00:29 Acetaminophen/ Hydrocodone Bitart ([place] 5/325) 1 tab Q6H PRN ORAL Severe Pain (Pain Scale 7-10) 05/15/17 00:30 05/22/17 00:29 Ascorbic Acid (Vitamin C) 500 mg DAILY ORAL 9/7/17 09:00 06/14/17 08:59 05/17/17 09:43 Bisacodyl (Dulcolax) 10 mg DAILY ORAL 05/15/17 09:00 06/14/17 08:59 05/17/17 09:43 Brimonidine Tartrate (Alphagan) 1 drop TID BOTH EYES 05/15/17 09:00 06/14/17 08:59 05/17/17 09:43 Dextrose/Sodium Chloride 1,000 ml @ 80 mls/hr [id number] IV 05/15/17 02:00 06/14/17 01:59 05/17/17 10:50 Docusate Sodium (Colace) 100 mg TWICE A DAY ORAL 05/15/17 09:00 06/14/17 08:59 05/17/17 09:43 Enoxaparin Sodium (Lovenox) 30 mg DAILY SUBQ 05/15/17 09:00 06/14/17 08:59 Ferrous Sulfate (Feosol) 325 mg THREE TIMES A DAY ORAL 05/15/17 09:00 06/14/17 08:59 05/16/17 18:40 Folic Acid (Folate) 1 mg DAILY ORAL 05/15/17 09:00 06/14/17 08:59 05/17/17 09:43 Haloperidol Lactate (Haldol) 5 mg Q6H PRN IM Agitation 05/15/17 16:45 06/14/17 16:44 05/16/17 11:01 Levofloxacin (Levaquin) 750 mg Q48H ORAL 05/15/17 11:00 05/22/17 10:59 Lorazepam (Ativan) 1 mg Q4H PRN ORAL For Anxiety 05/15/17 01:45 05/22/17 01:44 05/17/17 09:42 Magnesium Hydroxide (Mom) 30 ml BEDTIME ORAL 05/15/17 21:00 06/14/17 20:59 05/16/17 21:47 Multivitamins Therapeutic (Therapeutic Multivitamin) 1 ea DAILY ORAL 05/15/17 09:00 06/14/17 08:59 05/17/17 09:44 Olanzapine (ZyPREXA Zydis) 5 mg BEDTIME ORAL 05/16/17 21:00 06/15/17 20:59 05/16/17 21:58 Olanzapine (ZyPREXA) 5 mg TID ORAL 05/15/17 09:00 06/14/17 08:59 05/17/17 09:43 Pantoprazole (Protonix) 40 mg DAILY ORAL 05/15/17 09:00 06/14/17 08:59 05/17/17 09:43 Zolpidem Tartrate (Ambien) 5 mg BEDTIME PRN ORAL Insomnia 05/15/17 00:30 05/22/17 00:29 YANG AL M.D. May 17, 2017 11:08
[2017-05-17 12:00] VITALS: BP 143/68
[2017-05-17 16:00] VITALS: BP 137/61
--- NOTE | 2017-05-17 17:19 | Internal Med Progress Note ---
Subjective Date of Service: May 17, 2017 Physician Name WolfePadmini Attending Physician Pedro Ma MD Current Medications Medications (Trade) Dose Ordered Sig/Marcos Route PRN Reason Start Time Stop Time Status Last Admin Dose Admin Acetaminophen (Tylenol) 650 mg Q4H PRN ORAL Mild Pain/Temp > 100.5 05/15/17 00:30 06/14/17 00:29 Acetaminophen/ Hydrocodone Bitart ([place] 5/325) 1 tab Q6H PRN ORAL Severe Pain (Pain Scale 7-10) 05/15/17 00:30 05/22/17 00:29 Ascorbic Acid (Vitamin C) 500 mg DAILY ORAL 05/15/17 09:00 06/14/17 08:59 05/17/17 09:43 Bisacodyl (Dulcolax) 10 mg DAILY ORAL 05/15/17 09:00 06/14/17 08:59 05/17/17 09:43 Brimonidine Tartrate (Alphagan) 1 drop TID BOTH EYES 05/15/17 09:00 06/14/17 08:59 05/17/17 09:43 Dextrose/Sodium Chloride 1,000 ml @ 80 mls/hr [id number] IV 05/15/17 02:00 06/14/17 01:59 05/17/17 10:50 Docusate Sodium (Colace) 100 mg TWICE A DAY ORAL 05/15/17 09:00 06/14/17 08:59 05/17/17 09:43 Enoxaparin Sodium (Lovenox) 30 mg DAILY SUBQ 05/15/17 09:00 06/14/17 08:59 Ferrous Sulfate (Feosol) 325 mg THREE TIMES A DAY ORAL 05/15/17 09:00 06/14/17 08:59 05/16/17 18:40 Folic Acid (Folate) 1 mg DAILY ORAL 05/15/17 09:00 06/14/17 08:59 05/17/17 09:43 Haloperidol Lactate (Haldol) 5 mg Q6H PRN IM Agitation 05/15/17 16:45 06/14/17 16:44 05/17/17 11:02 Levofloxacin (Levaquin) 750 mg Q48H ORAL 05/15/17 11:00 05/22/17 10:59 Lorazepam (Ativan) 1 mg Q4H PRN ORAL For Anxiety 05/15/17 01:45 05/22/17 01:44 05/17/17 09:42 Magnesium Hydroxide (Mom) 30 ml BEDTIME ORAL 05/15/17 21:00 06/14/17 20:59 05/16/17 21:47 Multivitamins Therapeutic (Therapeutic Multivitamin) 1 ea DAILY ORAL 05/15/17 09:00 06/14/17 08:59 05/17/17 09:44 Olanzapine (ZyPREXA Zydis) 5 mg BEDTIME ORAL 05/16/17 21:00 06/15/17 20:59 05/16/17 21:58 Olanzapine (ZyPREXA) 5 mg TID ORAL 05/15/17 09:00 06/14/17 08:59 05/17/17 09:43 Pantoprazole (Protonix) 40 mg DAILY ORAL 05/15/17 09:00 06/14/17 08:59 05/17/17 09:43 Zolpidem Tartrate (Ambien) 5 mg BEDTIME PRN ORAL Insomnia 05/15/17 00:30 05/22/17 00:29 Allergies: Coded Allergies: MORPHINE (Verified Allergy, Unknown, 07/18/09) ROS Limited/Unobtainable: No Constitutional: Reports: no symptoms HEENT: Reports: no symptoms Cardiovascular: Reports: no symptoms Respiratory: Reports: no symptoms Gastrointestinal/Abdominal: Reports: no symptoms Genitourinary: Reports: no symptoms Neurologic/Psychiatric: Reports: no symptoms Subjective 77 YO F admitted with leukocytosis and UTI. Cover for Int Hardik -Dr Ma Objective Last Vital Signs Date Time Temp Pulse Resp B/P (MAP) Pulse Ox O2 Delivery O2 Flow Rate FiO2 05/17/17 16:00 97.8 60 17 137/61 96 Room Air Laboratory Tests Test 05/17/17 02:25 White Blood Count 11.8 K/UL (4.8-10.8) H Red Blood Count 2.94 M/UL (4.20-5.40) L Hemoglobin 8.0 G/DL (12.0-16.0) L Hematocrit 25.3 % (37.0-47.0) L Mean Corpuscular Volume 86 FL (80-99) Mean Corpuscular Hemoglobin 27.2 PG (27.0-31.0) Mean Corpuscular Hemoglobin Concent 31.7 G/DL (32.0-36.0) L Red Cell Distribution Width 14.5 % (11.6-14.8) Platelet Count 216 K/UL (150-450) Mean Platelet Volume 5.3 FL (6.5-10.1) L Neutrophils (%) (Auto) % (45.0-75.0) Lymphocytes (%) (Auto) % (20.0-45.0) Monocytes (%) (Auto) % (1.0-10.0) Eosinophils (%) (Auto) % (0.0-3.0) Basophils (%) (Auto) % (0.0-2.0) Sodium Level 139 mEQ/L (135-145) Potassium Level 4.1 mEQ/L (3.4-4.9) Chloride Level 107 mEQ/L (98-107) Carbon Dioxide Level 25 mEQ/L (20-30) Anion Gap 7 (5-15) Blood Urea Nitrogen 36 mg/dL (7-23) H Creatinine 1.6 mg/dL (0.5-0.9) H Estimat Glomerular Filtration Rate mL/min (>60) Glucose Level 114 mg/dL (74-106) H Calcium Level 9.0 mg/dL (8.6-10.2) Total Bilirubin 0.3 mg/dL (0.0-1.2) Aspartate Amino Transf (AST/SGOT) 19 U/L (5-40) Alanine Aminotransferase (ALT/SGPT) 9 U/L (3-33) Alkaline Phosphatase 53 U/L (35-104) Total Protein 8.2 g/dL (6.6-8.7) Albumin 2.6 g/dL (3.5-5.2) L Globulin 5.6 g/dL Albumin/Globulin Ratio 0.4 (1.0-2.7) L Vancomycin Level Trough 2.3 ug/mL (5.0-12.0) L Microbiology Date/Time Source Procedure Growth Status 05/14/17 19:45 Blood Blood Culture - Preliminary NO GROWTH AFTER 48 HOURS Resulted 05/14/17 19:35 Blood Blood Culture - Preliminary NO GROWTH AFTER 48 HOURS Resulted 05/14/17 21:20 Urine,Clean Catch Urine Culture - Final Mixed Gram Positive Organism Complete 05/14/17 22:22 Rectum VRE Culture - Final NO VANCOMYCIN RESISTANT ENTEROCOCCUS ... Complete Intake and Output 05/17/17 05/18/17 19:00 07:00 Intake Total 720 ml Balance 720 ml IV Total 720 ml Objective General: alert, cooperative, no distress, appears stated age Head: normocephalic, without obvious abnormality, atraumatic Eyes: conjunctivae/corneas clear. PERRL, EOM's intact Throat: lips, mucosa, and tongue normal. MMM Neck: supple, symmetrical, trachea midline, and no JVD Lungs: clear to auscultation bilaterally Heart: regular rate and rhythm, S1, S2 normal, no murmur, click, rub or gallop Abdomen: soft, non-tender, non-distended, bowel sounds normal; no masses or organomegaly Extremities: extremities normal, atraumatic, no cyanosis or edema Pulses: 2+ and symmetric Skin: skin color, texture, turgor normal; no rashes or lesions Neurologic: grossly normal, no focal deficits Assessment/Plan Problem List: (1) Obstructive uropathy (2) Nephrolithiasis (3) HTN (hypertension) (4) Renal failure Assessment & Plan: resolving on IV fluids. (5) Schizophrenia Assessment & Plan: See psychiatry note. (6) UTI (urinary tract infection) Assessment & Plan: Cont levaquin. (7) Leukocytosis Assessment & Plan: Resolving on levaquin (8) Anemia Status: progressing PADMINI WOLFE May 17, 2017 17:19
[2017-05-17] MEDS: Milk of Magnesia 30ml Ud ORAL SCH (21:00)
[2017-05-17] MEDS: ZyPREXA Zydis 5mg tab ORAL SCH (21:09)
[2017-05-18] MEDS: D5NS 1,000 ML IV SCH (06:46)
[2017-05-18 08:00] VITALS: BP 144/85
[2017-05-18] MEDS: Docusate 100mg cap ORAL SCH ×2 (09:00→17:07)
[2017-05-18] MEDS: Bisacodyl EC 5mg tab ORAL SCH (09:00)
[2017-05-18] MEDS: Brimonidine 0.2% Opth Sol BOTH EYES SCH ×3 (09:00→17:06)
[2017-05-18] MEDS: Enoxaparin 30mg Inj SUBQ SCH (09:00)
--- NOTE | 2017-05-18 09:06 | Infectious Diseases Prog Note ---
Assessment/Plan Assessment/Plan A; UTI Leukocytosis Schizophrenia, psychosis Aemia ? CKD P: Continue Levaquin d# 5 / Subjective ROS Limited/Unobtainable: Yes Constitutional: Reports: anorexia Genitourinary: Reports: other - incontinent Allergies: Coded Allergies: MORPHINE (Verified Allergy, Unknown, 07/18/09) Objective Vital Signs Last 24 Hour Vital Signs Date Time Temp Pulse Resp B/P (MAP) Pulse Ox O2 Delivery O2 Flow Rate FiO2 05/17/17 16:00 97.8 60 17 137/61 96 Room Air 05/17/17 12:00 97.3 59 18 143/68 97 Height (Feet): 5 Height (Inches): 5.00 Weight (Pounds): 100 General Appearance: no acute distress HEENT: mucous membranes moist Respiratory/Chest: lungs clear Cardiovascular: normal rate Abdomen: soft, non tender Extremities: no edema Neurologic/Psychiatric: unresponsiveness Current Medications Medications (Trade) Dose Ordered Sig/Marcos Route PRN Reason Start Time Stop Time Status Last Admin Dose Admin Acetaminophen (Tylenol) 650 mg Q4H PRN ORAL Mild Pain/Temp > 100.5 05/15/17 00:30 06/14/17 00:29 Acetaminophen/ Hydrocodone Bitart ([place] 5/325) 1 tab Q6H PRN ORAL Severe Pain (Pain Scale 7-10) 05/15/17 00:30 05/22/17 00:29 Ascorbic Acid (Vitamin C) 500 mg DAILY ORAL 05/15/17 09:00 06/14/17 08:59 05/17/17 09:43 Bisacodyl (Dulcolax) 10 mg DAILY ORAL 05/15/17 09:00 06/14/17 08:59 05/17/17 09:43 Brimonidine Tartrate (Alphagan) 1 drop TID BOTH EYES 05/15/17 09:00 06/14/17 08:59 05/17/17 09:43 Dextrose/Sodium Chloride 1,000 ml @ 80 mls/hr [id number] IV 05/15/17 02:00 06/14/17 01:59 05/18/17 06:46 Docusate Sodium (Colace) 100 mg TWICE A DAY ORAL 05/15/17 09:00 06/14/17 08:59 05/17/17 09:43 Enoxaparin Sodium (Lovenox) 30 mg DAILY SUBQ 05/15/17 09:00 06/14/17 08:59 Ferrous Sulfate (Feosol) 325 mg THREE TIMES A DAY ORAL 05/15/17 09:00 06/14/17 08:59 05/16/17 18:40 Folic Acid (Folate) 1 mg DAILY ORAL 05/15/17 09:00 06/14/17 08:59 05/17/17 09:43 Haloperidol Lactate (Haldol) 5 mg Q6H PRN IM Agitation 05/15/17 16:45 06/14/17 16:44 05/17/17 11:02 Levofloxacin (Levaquin) 750 mg Q48H ORAL 05/15/17 11:00 05/22/17 10:59 Lorazepam (Ativan) 1 mg Q4H PRN ORAL For Anxiety 05/15/17 01:45 05/22/17 01:44 05/17/17 09:42 Magnesium Hydroxide (Mom) 30 ml BEDTIME ORAL 05/15/17 21:00 06/14/17 20:59 05/16/17 21:47 Multivitamins Therapeutic (Therapeutic Multivitamin) 1 ea DAILY ORAL 05/15/17 09:00 06/14/17 08:59 05/17/17 09:44 Olanzapine (ZyPREXA Zydis) 5 mg BEDTIME ORAL 05/16/17 21:00 06/15/17 20:59 05/17/17 21:09 Olanzapine (ZyPREXA) 5 mg TID ORAL 05/15/17 09:00 06/14/17 08:59 05/17/17 09:43 Pantoprazole (Protonix) 40 mg DAILY ORAL 05/15/17 09:00 06/14/17 08:59 05/17/17 09:43 Zolpidem Tartrate (Ambien) 5 mg BEDTIME PRN ORAL Insomnia 05/15/17 00:30 05/22/17 00:29 TYRESE JOVEL May 18, 2017 09:06
[2017-05-18] MEDS: Ascorbic Acid 500mg tab ORAL SCH (09:16)
[2017-05-18] MEDS: Multivitamin w/Minerals tab ORAL SCH (09:16)
[2017-05-18] MEDS: LORazepam 1mg tab ORAL PRN ×2 (09:16→17:02)
[2017-05-18] MEDS ORDERED: D5NS 1000ml IV ONE (09:18)
--- NOTE | 2017-05-18 11:34 | Diagnostic Imaging Report ---
Indication: PAIN Technique: Ultrasound of the abdomen. Comparison: None Findings: Liver: The liver is normal in size and echogenicity. No focal abnormalities are noted. Gallbladder: The gallbladder is normal. No stones are visualized. The wall is not thickened. Common bile duct: Normal in size. Pancreas: The visualized portion of pancreas is normal in echogenicity. There are no masses. Kidneys: Large echogenic foci are noted in the right kidney with shadowing. There is mild hydronephrosis. Spleen: The spleen is enlarged measuring 14.6 cm. Aorta: The visualized portion of the aorta is normal in caliber. IVC: The demonstrated portion of the inferior vena cava is normal. Impression: Large right renal calculi versus staghorn calculus in the right kidney with mild hydronephrosis. Splenomegaly.
[2017-05-18 12:00] VITALS: BP 118/46
[2017-05-18] MEDS: Haloperidol 5mg/ml Inj IM PRN (13:24)
[2017-05-18 16:00] VITALS: BP 150/63
--- NOTE | 2017-05-18 17:50 | Internal Med Progress Note ---
Subjective Date of Service: May 18, 2017 Physician Name Wolfe,Padmini Attending Physician Pedro Ma MD Current Medications Medications (Trade) Dose Ordered Sig/Marcos Route PRN Reason Start Time Stop Time Status Last Admin Dose Admin Acetaminophen (Tylenol) 650 mg Q4H PRN ORAL Mild Pain/Temp > 100.5 05/15/17 00:30 06/14/17 00:29 Acetaminophen/ Hydrocodone Bitart ([place] 5/325) 1 tab Q6H PRN ORAL Severe Pain (Pain Scale 7-10) 05/15/17 00:30 05/22/17 00:29 Ascorbic Acid (Vitamin C) 500 mg DAILY ORAL 05/15/17 09:00 06/14/17 08:59 05/18/17 09:16 Bisacodyl (Dulcolax) 10 mg DAILY ORAL 05/15/17 09:00 06/14/17 08:59 05/17/17 09:43 Brimonidine Tartrate (Alphagan) 1 drop TID BOTH EYES 05/15/17 09:00 06/14/17 08:59 05/17/17 09:43 Dextrose/Sodium Chloride 1,000 ml @ 80 mls/hr [id number] IV 05/15/17 02:00 06/14/17 01:59 05/18/17 06:46 Docusate Sodium (Colace) 100 mg TWICE A DAY ORAL 05/15/17 09:00 06/14/17 08:59 05/17/17 09:43 Enoxaparin Sodium (Lovenox) 30 mg DAILY SUBQ 05/15/17 09:00 06/14/17 08:59 Ferrous Sulfate (Feosol) 325 mg THREE TIMES A DAY ORAL 05/15/17 09:00 06/14/17 08:59 05/18/17 17:02 Folic Acid (Folate) 1 mg DAILY ORAL 05/15/17 09:00 06/14/17 08:59 05/18/17 09:16 Haloperidol Lactate (Haldol) 5 mg Q6H PRN IM Agitation 05/15/17 16:45 06/14/17 16:44 05/18/17 13:24 Levofloxacin (Levaquin) 750 mg Q48H ORAL 05/15/17 11:00 05/22/17 10:59 Lorazepam (Ativan) 1 mg Q4H PRN ORAL For Anxiety 05/15/17 01:45 05/22/17 01:44 05/18/17 17:02 Magnesium Hydroxide (Mom) 30 ml BEDTIME ORAL 05/15/17 21:00 06/14/17 20:59 05/16/17 21:47 Multivitamins Therapeutic (Therapeutic Multivitamin) 1 ea DAILY ORAL 05/15/17 09:00 06/14/17 08:59 05/18/17 09:16 Olanzapine (ZyPREXA Zydis) 5 mg BEDTIME ORAL 05/16/17 21:00 06/15/17 20:59 05/17/17 21:09 Olanzapine (ZyPREXA) 5 mg TID ORAL 05/15/17 09:00 06/14/17 08:59 05/18/17 17:02 Pantoprazole (Protonix) 40 mg DAILY ORAL 05/15/17 09:00 06/14/17 08:59 05/18/17 09:16 Zolpidem Tartrate (Ambien) 5 mg BEDTIME PRN ORAL Insomnia 05/15/17 00:30 05/22/17 00:29 Allergies: Coded Allergies: MORPHINE (Verified Allergy, Unknown, 07/18/09) ROS Limited/Unobtainable: No Constitutional: Reports: no symptoms HEENT: Reports: no symptoms Cardiovascular: Reports: no symptoms Respiratory: Reports: no symptoms Gastrointestinal/Abdominal: Reports: no symptoms Genitourinary: Reports: no symptoms Neurologic/Psychiatric: Reports: no symptoms Subjective 77 YO F admitted with leukocytosis and UTI. Cover for Int Med -Dr Ma. Patient refusing meds and lab draw Objective Last Vital Signs Date Time Temp Pulse Resp B/P (MAP) Pulse Ox O2 Delivery O2 Flow Rate FiO2 05/18/17 16:00 98.2 69 18 150/63 95 Room Air Intake and Output 05/18/17 05/19/17 19:00 07:00 Intake Total 1120 ml Balance 1120 ml Intake Oral 480 ml IV Total 640 ml # Voids 6 Objective General: alert, cooperative, no distress, appears stated age Head: normocephalic, without obvious abnormality, atraumatic Eyes: conjunctivae/corneas clear. PERRL, EOM's intact Throat: lips, mucosa, and tongue normal. MMM Neck: supple, symmetrical, trachea midline, and no JVD Lungs: clear to auscultation bilaterally Heart: regular rate and rhythm, S1, S2 normal, no murmur, click, rub or gallop Abdomen: soft, non-tender, non-distended, bowel sounds normal; no masses or organomegaly Extremities: extremities normal, atraumatic, no cyanosis or edema Pulses: 2+ and symmetric Skin: skin color, texture, turgor normal; no rashes or lesions Neurologic: grossly normal, no focal deficits Assessment/Plan Problem List: (1) Obstructive uropathy (2) Nephrolithiasis (3) HTN (hypertension) (4) Renal failure Assessment & Plan: resolving on IV fluids. (5) Schizophrenia Assessment & Plan: See psychiatry note. (6) UTI (urinary tract infection) Assessment & Plan: Cont levaquin. (7) Leukocytosis Assessment & Plan: Resolving on levaquin (8) Anemia (9) Noncompliance Assessment & Plan: Refusing meds and lab draw Status: stable PADMINI WOLFE May 18, 2017 17:50
[2017-05-18] MEDS: Milk of Magnesia 30ml Ud ORAL SCH (21:00)
[2017-05-18] MEDS: ZyPREXA Zydis 5mg tab ORAL SCH (21:00)
--- NOTE | 2017-05-18 23:08 | General Progress Note ---
Assessment/Plan Status: unchanged Assessment/Plan cont zyprexa cont haldol and ativan the pt lacks capacity to make decision Subjective Constitutional: Reports: weakness Neurologic/Psychiatric: Reports: anxiety, depressed, emotional problems Allergies: Coded Allergies: MORPHINE (Verified Allergy, Unknown, 07/18/09) Subjective the pt pulled out IV access hitting staff. uncooperative on 1:1 for fall risk/ the pt is illogical and psychotic Objective Last 24 Hour Vital Signs Date Time Temp Pulse Resp B/P (MAP) Pulse Ox O2 Delivery O2 Flow Rate FiO2 05/18/17 16:00 98.2 69 18 150/63 95 Room Air 05/18/17 12:00 97.5 66 118/46 95 Room Air 05/18/17 08:00 67 18 144/85 95 Room Air Intake and Output 05/18/17 05/19/17 19:00 07:00 Intake Total 1630 ml Balance 1630 ml Intake Oral 830 ml IV Total 800 ml # Voids 7 # Bowel Movements 1 Height (Feet): 5 Height (Inches): 5.00 Weight (Pounds): 100 General Appearance: no apparent distress, alert, confused, agitated, cachetic Neurologic: alert, responsive, disoriented, depressed affect Manolo Reyes M.D. May 18, 2017 23:07
[2017-05-18 23:35] VITALS: BP 116/50
[2017-05-19 04:00] VITALS: BP 124/53
[2017-05-19] MEDS: D5NS 1,000 ML IV SCH ×2 (06:00→18:30)
[2017-05-19 08:00] VITALS: BP 141/78
--- NOTE | 2017-05-19 08:15 | Progress Note ---
DATE: 05/17/2017 SUBJECTIVE: The patient is on one-to-one, still has been uncooperative, which is yelling at the sitter, asking her to leave the room. The patient is . I spoke with Dr. Ma, but the patient may not refuse labs or medication as she lacks the capacity to make any decisions. If any procedures including lab draws are an emergency and other two physicians may justify and could treat as the patient is unable to cooperate due to is given to her in the virtual medical condition. MENTAL STATUS EXAMINATION: The patient is alert and oriented to self, confused, disoriented. Mood is irritable and angry. Affect is flat. Congruent with mood. Thought process, there is a paucity of thought content. Thought content, there is no suicidal or homicidal ideation, delusional. Cognition is impaired. ASSESSMENT: 1. Schizophrenia. 2. Bipolar disorder, by history. 3. Hypertension. 4. Urinary tract infection. 5. Acute encephalopathy. PLAN: The patient will be continued on current medications. We will continue to follow and readjust the medications. Manolo Reyes M.D. DR: Eve JOB#: [id number] CC:
[2017-05-19] MEDS: Brimonidine 0.2% Opth Sol BOTH EYES SCH ×3 (09:00→18:00)
[2017-05-19] MEDS: Bisacodyl EC 5mg tab ORAL SCH (09:00)
[2017-05-19] MEDS: Ascorbic Acid 500mg tab ORAL SCH ×2 (09:00→09:39)
[2017-05-19] MEDS: Enoxaparin 30mg Inj SUBQ SCH (09:00)
--- NOTE | 2017-05-19 09:08 | General Progress Note ---
Assessment/Plan Status: stable Assessment/Plan 1. Pyelonephritis. 2. Obstructive uropathy at the level of the ureter, status post stent placement. 3. Hypertension. 4. Renal failure likely acute on chronic. 5. AnemiaAcute on chornic 6. Refusal of medical care. 7. Psychiatric disorder. 8. No Capacity for making medical decisions. 8. Gastrointestinal and deep vein thrombosis prophylaxis. Plan; Given the Emergency Nature of current medical problem and potential life threatening consequence of refusing treatment, It is MEDICALLY JUSTIFIED to restraint and provide treament at this time additional urologic treatment , will be defer to out patient. the Primary urology will monitor serum cr level and WBC trend Subjective ROS Limited/Unobtainable: Yes Constitutional: Reports: malaise HEENT: Reports: no symptoms Cardiovascular: Reports: no symptoms Allergies: Coded Allergies: MORPHINE (Verified Allergy, Unknown, 07/18/09) Objective Last 24 Hour Vital Signs Date Time Temp Pulse Resp B/P (MAP) Pulse Ox O2 Delivery O2 Flow Rate FiO2 05/19/17 08:00 97.5 74 18 141/78 95 Room Air 05/19/17 04:00 97.3 65 18 124/53 96 Room Air 05/18/17 23:35 98.1 62 18 116/50 95 Room Air 05/18/17 16:00 98.2 69 18 150/63 95 Room Air 05/18/17 12:00 97.5 66 118/46 95 Room Air Height (Feet): 5 Height (Inches): 5.00 Weight (Pounds): 100 General Appearance: no apparent distress EENT: PERRL/EOMI Neck: supple Cardiovascular: normal rate Respiratory/Chest: lungs clear Abdomen: soft Extremities: non-tender 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 as patient is not communicative appropriatedly, Pedro Canchola MD May 19, 2017 09:08
[2017-05-19] MEDS: Multivitamin w/Minerals tab ORAL SCH (09:39)
[2017-05-19] MEDS: Docusate 100mg cap ORAL SCH ×2 (09:40→18:00)
[2017-05-19 12:00] VITALS: BP 162/72
--- NOTE | 2017-05-19 14:26 | General Progress Note ---
Assessment/Plan Status: stable Status Narrative slightly improved. cont zyprexa cont current treatment Assessment/Plan cont zyprexa cont haldol and ativan the pt lacks capacity to make decision Subjective Allergies: Coded Allergies: MORPHINE (Verified Allergy, Unknown, 07/18/09) Subjective the pt spat out all her meds this am however took her meds later this am. the pt was calm in bed, still hostile towards the staff and sitter. uncooperative. unable to understand, appreciate or process the info given to her. Objective Last 24 Hour Vital Signs Date Time Temp Pulse Resp B/P (MAP) Pulse Ox O2 Delivery O2 Flow Rate FiO2 05/19/17 12:00 72 18 162/72 96 Room Air 05/19/17 09:38 74 141/78 05/19/17 08:00 97.5 74 18 141/78 95 Room Air 05/19/17 04:00 97.3 65 18 124/53 96 Room Air 05/18/17 23:35 98.1 62 18 116/50 95 Room Air 05/18/17 16:00 98.2 69 18 150/63 95 Room Air Intake and Output 05/19/17 05/20/17 19:00 07:00 Intake Total 360 ml Balance 360 ml Intake Oral 360 ml # Voids 2 Height (Feet): 5 Height (Inches): 5.00 Weight (Pounds): 100 General Appearance: no apparent distress, alert, confused, agitated, cachetic Neurologic: alert, responsive, disoriented, depressed affect Manolo Reyes M.D. May 19, 2017 14:26
[2017-05-19] MEDS: Haloperidol 5mg/ml Inj IM PRN (15:44)
--- NOTE | 2017-05-19 17:03 | Infectious Diseases Prog Note ---
Assessment/Plan Assessment/Plan ASSESSMENT: The patient is a 77-year-old female with Leukocytosis improving Probable urinary tract infection, UCx : Mixed GNR ( low count ) ultrasound of the abdomen and pelvis results: ; Large right renal calculi versus staghorn calculus in the right kidney with mild hydronephrosis Hematuria.? hx of Urethral stent Schizophrenia History of recent urinary tract infection Hypertension History of CKD Bipolar disorder Depression Anemia Anxiety PLAN: continue the patient on Levaquin d# 6 / 7 Monitor CBC. Monitor BMP. Monitor cultures (blood, urine). Uro is following Subjective Allergies: Coded Allergies: MORPHINE (Verified Allergy, Unknown, 07/18/09) Subjective comfortable Objective Vital Signs Last 24 Hour Vital Signs Date Time Temp Pulse Resp B/P (MAP) Pulse Ox O2 Delivery O2 Flow Rate FiO2 05/19/17 12:00 72 18 162/72 96 Room Air 05/19/17 09:38 74 141/78 05/19/17 08:00 97.5 74 18 141/78 95 Room Air 05/19/17 04:00 97.3 65 18 124/53 96 Room Air 05/18/17 23:35 98.1 62 18 116/50 95 Room Air Height (Feet): 5 Height (Inches): 5.00 Weight (Pounds): 100 HEENT: anicteric Respiratory/Chest: normal breath sounds Cardiovascular: regularly irregular Abdomen: non distended Current Medications Medications (Trade) Dose Ordered Sig/Marcos Route PRN Reason Start Time Stop Time Status Last Admin Dose Admin Acetaminophen (Tylenol) 650 mg Q4H PRN ORAL Mild Pain/Temp > 100.5 05/15/17 00:30 06/14/17 00:29 Acetaminophen/ Hydrocodone Bitart (George 5/325) 1 tab Q6H PRN ORAL Severe Pain (Pain Scale 7-10) 05/15/17 00:30 05/22/17 00:29 Amlodipine Besylate (Norvasc) 2.5 mg DAILY ORAL 05/19/17 09:30 06/18/17 09:29 05/19/17 09:38 Ascorbic Acid (Vitamin C) 500 mg DAILY ORAL 05/15/17 09:00 06/14/17 08:59 05/18/17 09:16 Bisacodyl (Dulcolax) 10 mg DAILY ORAL 05/15/17 09:00 06/14/17 08:59 05/17/17 09:43 Brimonidine Tartrate (Alphagan) 1 drop TID BOTH EYES 05/15/17 09:00 06/14/17 08:59 05/19/17 12:58 Dextrose/Sodium Chloride 1,000 ml @ 80 mls/hr [id number] IV 05/15/17 02:00 06/14/17 01:59 05/18/17 06:46 Docusate Sodium (Colace) 100 mg TWICE A DAY ORAL 05/15/17 09:00 06/14/17 08:59 05/19/17 09:40 Enoxaparin Sodium (Lovenox) 30 mg DAILY SUBQ 05/15/17 09:00 06/14/17 08:59 Ferrous Sulfate (Feosol) 325 mg THREE TIMES A DAY ORAL 05/15/17 09:00 06/14/17 08:59 05/19/17 12:58 Folic Acid (Folate) 1 mg DAILY ORAL 05/15/17 09:00 06/14/17 08:59 05/19/17 09:38 Haloperidol Lactate (Haldol) 5 mg Q6H PRN IM Agitation 05/15/17 16:45 06/14/17 16:44 05/19/17 15:44 Levofloxacin (Levaquin) 750 mg Q48H ORAL 05/15/17 11:00 05/22/17 10:59 05/19/17 11:10 Lorazepam (Ativan) 1 mg Q4H PRN ORAL For Anxiety 05/15/17 01:45 05/22/17 01:44 05/18/17 17:02 Magnesium Hydroxide (Mom) 30 ml BEDTIME ORAL 05/15/17 21:00 06/14/17 20:59 05/16/17 21:47 Multivitamins Therapeutic (Therapeutic Multivitamin) 1 ea DAILY ORAL 05/15/17 09:00 06/14/17 08:59 05/19/17 09:39 Olanzapine (ZyPREXA) 5 mg TID ORAL 05/15/17 09:00 06/14/17 08:59 05/19/17 12:58 Pantoprazole (Protonix) 40 mg DAILY ORAL 05/15/17 09:00 06/14/17 08:59 05/18/17 09:16 Zolpidem Tartrate (Ambien) 5 mg BEDTIME PRN ORAL Insomnia 05/15/17 00:30 05/22/17 00:29 YANG AL M.D. May 19, 2017 17:03
[2017-05-19 19:46] LABS: MEAN CORPUSCULAR HEMOGLOBIN 28.1 PG (27.0-31.0); MEAN CORPUSCULAR HGB CONC 33.4 G/DL (32.0-36.0); MEAN CORPUSCULAR VOLUME 84 FL (80-99); MEAN PLATELET VOLUME 6.1 FL (6.5-10.1); PLATELET COUNT 201 K/UL (150-450); RED BLOOD COUNT 2.79 M/UL (4.20-5.40); RED CELL DISTRIBUTION WIDTH 14.1 % (11.6-14.8); WHITE BLOOD COUNT 10.6 K/UL (4.8-10.8)
[2017-05-19 20:18] LABS: ALANINE AMINOTRANSFERASE 13 U/L (3-33); ALBUMIN/GLOBULIN RATIO 0.6 (1.0-2.7); ANION GAP 13 (5-15); ASPARTATE AMINO TRANSFERASE 28 U/L (5-40); CALCIUM 9.1 mg/dL (8.6-10.2); CARBON DIOXIDE 24 mEQ/L (20-30); CHLORIDE 101 mEQ/L (98-107); CREATININE 1.4 mg/dL (0.5-0.9); HEMOLYSIS 2; POTASSIUM 4.2 mEQ/L (3.4-4.9); SODIUM 138 mEQ/L (135-145); TOTAL PROTEIN 8.4 g/dL (6.6-8.7)
[2017-05-19 20:42] LABS: LYMPHOCYTES % (MANUAL) 57 % (20-45); NEUTROPHILS % (MANUAL) 35 % (45-75); TOTAL CELLS COUNTED 100
[2017-05-19 20:43] LABS: ANISOCYTOSIS 1+; BAND NEUTROPHILS % (MANUAL) 0 % (0-8); BASOPHILS % (MANUAL) 0 % (0-2); EOSINOPHILS % (MANUAL) 0 % (0-3); HYPOCHROMASIA 1+; PLATELET ESTIMATE ADEQUATE; PLATELET MORPHOLOGY NORMAL
[2017-05-19] MEDS: Milk of Magnesia 30ml Ud ORAL SCH (21:00)
[2017-05-19 23:46] VITALS: BP 120/54
[2017-05-20 04:00] VITALS: BP 116/51
[2017-05-20] MEDS: D5NS 1,000 ML IV SCH (06:31)
[2017-05-20 08:08] VITALS: BP 142/79
[2017-05-20] MEDS: Enoxaparin 30mg Inj SUBQ SCH (09:00)
[2017-05-20] MEDS: Multivitamin w/Minerals tab ORAL SCH ×2 (09:00→09:40)
[2017-05-20] MEDS: Brimonidine 0.2% Opth Sol BOTH EYES SCH ×2 (09:00→13:00)
[2017-05-20] MEDS: Docusate 100mg cap ORAL SCH ×2 (09:00→09:40)
[2017-05-20] MEDS: Ascorbic Acid 500mg tab ORAL SCH ×2 (09:00→09:40)
[2017-05-20] MEDS: Bisacodyl EC 5mg tab ORAL SCH (09:40)
--- NOTE | 2017-05-20 10:40 | General Progress Note ---
Assessment/Plan Status: stable Assessment/Plan 1. Pyelonephritis- on PO antibiotic 2. Obstructive uropathy at the level of the ureter, status post stent placement. 3. Hypertension. 4. Renal failure likely acute on chronic. 5. Anemia- Acute on chornic 6. Refusal of medical care. 7. Psychiatric disorder. 8. No Capacity for making medical decisions. 8. Gastrointestinal and deep vein thrombosis prophylaxis. Plan; Given the Emergency Nature of current medical problem and the fact that patient doesn't have the capacity to make medical decisions. It is MEDICALLY JUSTIFIED to proceed with Blood Transfusion Pending the labs post Transfusion, patient may be discharged for outpatient followup Subjective ROS Limited/Unobtainable: Yes Allergies: Coded Allergies: MORPHINE (Verified Allergy, Unknown, 07/18/09) Objective Last 24 Hour Vital Signs Date Time Temp Pulse Resp B/P (MAP) Pulse Ox O2 Delivery O2 Flow Rate FiO2 05/20/17 09:41 69 142/79 05/20/17 08:08 98.2 69 20 142/79 95 Room Air 05/20/17 04:00 97.7 60 18 116/51 98 Room Air 05/19/17 23:46 98.1 68 18 120/54 99 Room Air 05/19/17 12:00 72 18 162/72 96 Room Air Laboratory Tests 05/19/17 19:25: White Blood Count 10.6, Red Blood Count 2.79L, Hemoglobin 7.8L, Hematocrit 23.5L , Mean Corpuscular Volume 84, Mean Corpuscular Hemoglobin 28.1, Mean Corpuscular Hemoglobin Concent 33.4, Red Cell Distribution Width 14.1, Platelet Count 201, Mean Platelet Volume 6.1L, Neutrophils (%) (Auto) , Lymphocytes (%) ( Auto) , Monocytes (%) (Auto) , Eosinophils (%) (Auto) , Basophils (%) (Auto) , Differential Total Cells Counted 100, Neutrophils % (Manual) 35L, Lymphocytes % (Manual) 57H, Monocytes % (Manual) 8, Eosinophils % (Manual) 0, Basophils % ( Manual) 0, Band Neutrophils 0, Platelet Estimate Adequate, Platelet Morphology Normal, Hypochromasia 1+, Anisocytosis 1+, Sodium Level 138, Potassium Level 4.2 , Chloride Level 101, Carbon Dioxide Level 24, Anion Gap 13, Blood Urea Nitrogen 22, Creatinine 1.4H, Estimat Glomerular Filtration Rate , Glucose Level 116H, Calcium Level 9.1, Total Bilirubin 0.2, Aspartate Amino Transf (AST/ SGOT) 28, Alanine Aminotransferase (ALT/SGPT) 13, Alkaline Phosphatase 56, Total Protein 8.4, Albumin 3.2L, Globulin 5.2, Albumin/Globulin Ratio 0.6L Height (Feet): 5 Height (Inches): 5.00 Weight (Pounds): 100 General Appearance: no apparent distress EENT: PERRL/EOMI Neck: supple Cardiovascular: normal rate Respiratory/Chest: lungs clear Abdomen: soft Extremities: non-tender 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
[2017-05-20 11:10] LABS: BASOPHILS % (AUTO) 0.6 % (0.0-2.0); EOSINOPHILS % (AUTO) 0.6 % (0.0-3.0); LYMPHOCYTES % (AUTO) 31.6 % (20.0-45.0); MEAN CORPUSCULAR HGB CONC 32.6 G/DL (32.0-36.0); MEAN CORPUSCULAR VOLUME 86 FL (80-99); MEAN PLATELET VOLUME 5.6 FL (6.5-10.1); MONOCYTES % (AUTO) 4.2 % (1.0-10.0); NEUTROPHILS % (AUTO) 63.1 % (45.0-75.0); PLATELET COUNT 201 K/UL (150-450); RED BLOOD COUNT 4.04 M/UL (4.20-5.40); RED CELL DISTRIBUTION WIDTH 14.1 % (11.6-14.8); WHITE BLOOD COUNT 13.1 K/UL (4.8-10.8)
[2017-05-20 11:21] LABS: ALANINE AMINOTRANSFERASE 12 U/L (3-33); ALBUMIN/GLOBULIN RATIO 0.5 (1.0-2.7); ANION GAP 14 (5-15); ASPARTATE AMINO TRANSFERASE 24 U/L (5-40); CALCIUM 9.3 mg/dL (8.6-10.2); CARBON DIOXIDE 25 mEQ/L (20-30); CHLORIDE 105 mEQ/L (98-107); CREATININE 1.3 mg/dL (0.5-0.9); HEMOLYSIS 1; POTASSIUM 4.4 mEQ/L (3.4-4.9); SODIUM 144 mEQ/L (135-145); TOTAL PROTEIN 8.7 g/dL (6.6-8.7)
[2017-05-20 11:37] LABS: BILIRUBIN,DIRECT 0.3 mg/dL (0.1-0.3)
[2017-05-20] MEDS ORDERED: AMLODIPINE BES2.5 MG ORAL (11:49)
[2017-05-20] MEDS ORDERED: PROTONIX40 MG ORAL (11:49)
[2017-05-20] MEDS ORDERED: LEVAQUIN750 MG ORAL (11:50)
[2017-05-20 12:00] VITALS: BP 145/72
--- NOTE | 2017-05-20 13:01 | General Progress Note ---
Assessment/Plan Status: doing well, stable Assessment/Plan cont zyprexa cont haldol and ativan the pt lacks capacity to make decision Subjective Constitutional: Reports: malaise, weakness Neurologic/Psychiatric: Reports: anxiety, depressed, emotional problems Allergies: Coded Allergies: MORPHINE (Verified Allergy, Unknown, 07/18/09) Subjective the pt took her meds this am. still combative. during the eval the pt was calm in bed, still hostile towards the staff and sitter. uncooperative. unable to understand, appreciate or process the info given to her. Objective Last 24 Hour Vital Signs Date Time Temp Pulse Resp B/P (MAP) Pulse Ox O2 Delivery O2 Flow Rate FiO2 05/20/17 12:00 97.0 68 20 145/72 98 Room Air 05/20/17 09:41 69 142/79 05/20/17 08:08 98.2 69 20 142/79 95 Room Air 05/20/17 04:00 97.7 60 18 116/51 98 Room Air 05/19/17 23:46 98.1 68 18 120/54 99 Room Air Laboratory Tests 05/19/17 19:25: White Blood Count 10.6, Red Blood Count 2.79L, Hemoglobin 7.8L, Hematocrit 23.5L , Mean Corpuscular Volume 84, Mean Corpuscular Hemoglobin 28.1, Mean Corpuscular Hemoglobin Concent 33.4, Red Cell Distribution Width 14.1, Platelet Count 201, Mean Platelet Volume 6.1L, Neutrophils (%) (Auto) , Lymphocytes (%) ( Auto) , Monocytes (%) (Auto) , Eosinophils (%) (Auto) , Basophils (%) (Auto) , Differential Total Cells Counted 100, Neutrophils % (Manual) 35L, Lymphocytes % (Manual) 57H, Monocytes % (Manual) 8, Eosinophils % (Manual) 0, Basophils % ( Manual) 0, Band Neutrophils 0, Platelet Estimate Adequate, Platelet Morphology Normal, Hypochromasia 1+, Anisocytosis 1+, Sodium Level 138, Potassium Level 4.2 , Chloride Level 101, Carbon Dioxide Level 24, Anion Gap 13, Blood Urea Nitrogen 22, Creatinine 1.4H, Estimat Glomerular Filtration Rate , Glucose Level 116H, Calcium Level 9.1, Total Bilirubin 0.2, Aspartate Amino Transf (AST/ SGOT) 28, Alanine Aminotransferase (ALT/SGPT) 13, Alkaline Phosphatase 56, Total Protein 8.4, Albumin 3.2L, Globulin 5.2, Albumin/Globulin Ratio 0.6L 05/20/17 10:55: White Blood Count 13.1H, Red Blood Count 4.04L, Hemoglobin 11.3#L, Hematocrit 34.7#L, Mean Corpuscular Volume 86, Mean Corpuscular Hemoglobin 28.0, Mean Corpuscular Hemoglobin Concent 32.6, Red Cell Distribution Width 14.1, Platelet Count 201, Mean Platelet Volume 5.6L, Neutrophils (%) (Auto) 63.1, Lymphocytes ( %) (Auto) 31.6, Monocytes (%) (Auto) 4.2, Eosinophils (%) (Auto) 0.6, Basophils (%) (Auto) 0.6, Sodium Level 144, Potassium Level 4.4, Chloride Level 105, Carbon Dioxide Level 25, Anion Gap 14, Blood Urea Nitrogen 22, Creatinine 1.3H, Estimat Glomerular Filtration Rate , Glucose Level 103, Calcium Level 9.3, Total Bilirubin 1.7H, Aspartate Amino Transf (AST/SGOT) 24, Alanine Aminotransferase (ALT/SGPT) 12, Alkaline Phosphatase 58, Total Protein 8.7, Albumin 2.9L, Globulin 5.8, Albumin/Globulin Ratio 0.5L, Direct Bilirubin 0.3 Height (Feet): 5 Height (Inches): 5.00 Weight (Pounds): 100 General Appearance: no apparent distress, alert, confused, cachetic Neurologic: alert, responsive, depressed affect Manolo Reyes M.D. May 20, 2017 13:01
[2017-05-20] MEDS ORDERED: Tubing IV Blood Pump IV ONE (14:58)
[2017-05-20] MEDS ORDERED: NS 275ml ONE (14:58)
--- NOTE | 2017-05-22 12:41 | Discharge Summary ---
Discharge Summary Hospital Course Date of Admission May 14, 2017 at 21:06 Date of Discharge May 20, 2017 at 14:59 Admitting Diagnosis -UTI/Anemia HPI Funmilayo Contreras is a 77 year old female who was admitted on May 14, 2017 at 21: 06 for Urinary Tract Infection, Anemia Hospital Course [id number] Discharge Discharge Disposition Patient was discharged to SNF/Subacute Facility(03) Discharge Diagnoses: Kinsey Olea NP May 22, 2017 12:41
--- NOTE | 2017-05-23 06:16 | Discharge Summary 2 SIG ---
DATE OF ADMISSION: 05/14/2017 DATE OF DISCHARGE: 05/20/2017 CONSULTANTS: 1. Ernesto Baeza M.D. 2. Aneesh Shaikh M.D. 3. Manolo Reyes M.D. Brief Hospital Course: The patient is a 77-year-old female, who lives in [facility]. She is status post stent placement in the ureter secondary to obstructive uropathy. She has history of frequent urinary tract infections and has been on Macrobid for the past 10 days. On evaluation at ED, laboratory work showed leukocytosis and urine with UTI. EKG was in normal sinus rhythm. She was admitted for pyelonephritis and obstructive uropathy status post stent placement. Creatinine was 1.5 and BUN of 38. She was started empirically on IV vancomycin and cefepime. Antibiotics were discontinued and was given Levaquin. She had history of dementia and has been refusing care and refusing medication. She was provided a sitter for patient safety. She had cognitive impairment and was given Haldol p.r.n. She came in with urinary stent in place for a stone disease. Stent has not been removed. She was recommended to follow up with urologist for removal of the double-J stent. Physical exam was essentially unremarkable. Abdominal ultrasound showed a large right renal calculi versus a staghorn calculus in the right kidney with mild hydronephrosis. She continued to have psychosis with lack of capacity to make decision. There was no next of kin. She was given restraints as needed and was started on Zyprexa. Urine culture showed growth of mixed gram-negative rods with low count. Blood count dropped to 7.8. She was given two units of packed RBC blood transfusion. She was eventually discharged back to [facility]. FINAL DIAGNOSES: 1. Pyelonephritis. 2. Obstructive uropathy at the level of ureter status post stent placement. 3. Hypertension. 4. Acute on chronic renal failure. 5. Acute on chronic requiring blood transfusion. 6. Refusal of medical care. 7. Psychiatric disorder. 8. No capacity for making medical decisions. 9. Leukocytosis with probable urinary tract infection. 10. Bipolar disorder. 11. Depression. 12. Anxiety. Disposition: The patient was discharged to [facility]. DISCHARGE MEDICATIONS: Refer to med list. Pedro Ma M.D. I have been assigned to dictate discharge summary on this account and I was not involved in the patient's management. Kinsey Olea N.P. DR: SARAH JOB#: [id number] CC: LENCHO
== END 2017-05-20 14:59 | DRG 689 ==
LOC: EDBD 18:30 → EMR 19:54 → EDBEDREQ 20:45 → 4E 21:06 → EDBEDREQ 22:01 → 4W 05-15 08:44
PROC: 30233N1 Transfusion of Nonautologous Red Blood Cells into Peripheral Vein, Percutaneous Approach (ICD-10-PCS; principal; 2017-05-20)
DX: N10 Acute pyelonephritis (principal); G93.40 Encephalopathy, unspecified; N17.9 Acute kidney failure, unspecified; N13.8 Other obstructive and reflux uropathy; D64.9 Anemia, unspecified; N18.9 Chronic kidney disease, unspecified; I12.9 Hypertensive chronic kidney disease with stage 1 through stage 4 chronic kidney disease, or unspecified chronic kidney disease; Z53.20 Procedure and treatment not carried out because of patient's decision for unspecified reasons; Z88.6 Allergy status to analgesic agent; N13.2 Hydronephrosis with renal and ureteral calculous obstruction; F31.9 Bipolar disorder, unspecified; F41.9 Anxiety disorder, unspecified; F20.9 Schizophrenia, unspecified; F03.90 Unspecified dementia, unspecified severity, without behavioral disturbance, psychotic disturbance, mood disturbance, and anxiety
CPT/HCPCS: 36415; 76700; 80053; 80202; 81003; 82248; 82550; 82553; 83605; 84484; 85007; 85025; 86850; 86900; 86901; 86920; 87040; 87081; 87086; 93005; 99285

== ENCOUNTER 2019-02-22 19:25 | Inpatient (IN) | payer MEDICARE, MEDICAID ==
[~2019-02-22] VITALS: Ht 162.6 cm; Wt 39.9 kg
--- NOTE | 2019-02-22 11:45 | NUR ---
NURSE NOTES: tried to reach Dr Bernal for admission orders. left a voice message. awaiting for his call back.
[~2019-02-22 19:25] MED LIST changes: +AMLODIPINE BES2.5 MG ORAL; +BISACODYL5 MG ORAL; +CRANBERRY450 M4 PO; +DOCUSATE SODIU100 MG ORAL; -DiphenhydrAMINE 50mg/ml Inj ONE; -EPINEPHrine 1mg/1ml Amp ONE; +LEVAQUIN750 MG ORAL; +MILK OF MA2400 MG/10 ORAL; +PROTONIX40 MG ORAL; +TYLENOL EXTRA500 MG ORAL; +VITAMIN C500 M1 ORAL
[2019-02-22] MEDS ORDERED: cefTRIAXone 1 GM in NS 55 ML IVPB ONE (19:45)
[2019-02-22] MEDS ORDERED: MOM30 ML GT (19:47)
[2019-02-22] MEDS ORDERED: ACETAMINOP160 MG/5 M GT (19:47)
[2019-02-22] MEDS ORDERED: EPOGEN20000 UNIT SUBQ (19:47)
[2019-02-22] MEDS ORDERED: BACLOFEN5 GM GT (19:47)
[2019-02-22] MEDS ORDERED: NORVASC5 MG GT (19:47)
[2019-02-22] MEDS ORDERED: ZYPREXA7.5 MG GT (19:47)
--- NOTE | 2019-02-22 19:49 | NUR ---
ED Nurse Note: Receieved report. Pt BIBA from SNF. Ambulance personnel reported that nurse at [facility] said pt had increased lethargy and mouth breathing with a baseline of AAOx1. Pt brought in on NC 4L. Pt now has O2 sat of 100%. Wll assess and carry out ER MD's orders.
[2019-02-22 19:50] VITALS: BP 124/72
--- NOTE | 2019-02-22 19:54 | Emergency Room Report ---
History of Present Illness General Chief Complaint: Altered Mental Status Source: Medical Record, EMS Present Illness HPI Patient is a 79-year-old female presented after increased altered mental status. Patient had recently had increased lethargy at her facility. Patient was noted to be somewhat responsive at baseline however she was noted to be more confused. Patient was brought in by [facility] Patient had prior history of chronic debilitation. She reportedly does not have any medical decision makers at this time. Patient had been noted to be full code. Allergies: Coded Allergies: MORPHINE (Verified Allergy, Unknown, 07/18/09) Patient History Past Medical History: see triage record Last Menstrual Period: NA Now: No Nursing Documentation-PMH Past Medical History Deferred: Pt Cognitively Impaired Hx Cardiac Problems: No Hx Hypertension: No Hx Pacemaker: No Hx Asthma: No Hx COPD: No Hx Cancer: No Hx Gastrointestinal Problems: Yes Hx Dialysis: No - kidney failure History Of Psychiatric Problem: Yes - psychosis Hx Neurological Problems: Yes - encephalopathy Hx Weakness: Yes Review of Systems All Other Systems: limited - by poor historian Physical Exam Vital Signs Date Time Temp Pulse Resp B/P (MAP) Pulse Ox O2 Delivery O2 Flow Rate FiO2 02/22/19 19:25 97.3 112 24 124/72 (89) 93 General Appearance: thin, Chronically Ill Head: normocephalic ENT: dry mucus membranes Neck: limited range of motion Respiratory: lungs clear, no respiratory distress Cardiovascular #1: normal peripheral pulses Gastrointestinal: normal bowel sounds, non tender, other Genitourinary: deferred Musculoskeletal: decreased range of motion - contracted Neurologic: motor weakness, other - poor alertness, responds to pain Psychiatric: depressed affect Skin: normal inspection, normal color Medical Decision Making Diagnostic Impression: Primary Impression: Generalized weakness Additional Impressions: Dehydration Sepsis Urinary tract infection ER Course Patient presented for altered mental status. Differential diagnosis included but was not limited to dehydration, sepsis, UTI, CVA, intracranial hemorrhage among others. Patient appears dehydrated. Bryant catheter was placed with large amount of cloudy urine. Urinalyis showed TNTC WBC in urine with moderate bacteria. BUN was 70 Creatinine 1.3 consistent with dehydration. Patient was started on IV fluids and IV antibiotics. Dr. Bernal was contacted for inpatient management due to primary care physician. Labs Test 02/22/19 20:08 02/22/19 21:05 White Blood Count 14.3 K/UL (4.8-10.8) Red Blood Count 4.34 M/UL (4.20-5.40) Hemoglobin 11.6 G/DL (12.0-16.0) Hematocrit 36.5 % (37.0-47.0) Mean Corpuscular Volume 84 FL (80-99) Mean Corpuscular Hemoglobin 26.7 PG (27.0-31.0) Mean Corpuscular Hemoglobin Concent 31.7 G/DL (32.0-36.0) Red Cell Distribution Width 16.5 % (11.6-14.8) Platelet Count 170 K/UL (150-450) Mean Platelet Volume 6.7 FL (6.5-10.1) Neutrophils (%) (Auto) 55.8 % (45.0-75.0) Lymphocytes (%) (Auto) 38.1 % (20.0-45.0) Monocytes (%) (Auto) 4.9 % (1.0-10.0) Eosinophils (%) (Auto) 0.5 % (0.0-3.0) Basophils (%) (Auto) 0.7 % (0.0-2.0) Sodium Level 147 MMOL/L (136-145) Potassium Level 3.9 MMOL/L (3.5-5.1) Chloride Level 108 MMOL/L (98-107) Carbon Dioxide Level 29 MMOL/L (21-32) Anion Gap 10 mmol/L (5-15) Blood Urea Nitrogen 70 mg/dL (7-18) Creatinine 1.3 MG/DL (0.55-1.30) Estimat Glomerular Filtration Rate mL/min (>60) Glucose Level 114 MG/DL (74-106) Lactic Acid Level 1.50 mmol/L (0.4-2.0) Calcium Level 10.0 MG/DL (8.5-10.1) Phosphorus Level 3.7 MG/DL (2.5-4.9) Magnesium Level 2.7 MG/DL (1.8-2.4) Total Bilirubin 0.5 MG/DL (0.2-1.0) Aspartate Amino Transf (AST/SGOT) 41 U/L (15-37) Alanine Aminotransferase (ALT/SGPT) 70 U/L (12-78) Alkaline Phosphatase 60 U/L (46-116) Total Creatine Kinase 374 U/L (26-308) Creatine Kinase MB 1.0 NG/ML (0.0-3.6) Creatine Kinase MB Relative Index 0.2 Troponin I 0.012 ng/mL (0.000-0.056) Pro-B-Type Natriuretic Peptide 315 pg/mL (0-125) Total Protein 11.1 G/DL (6.4-8.2) Albumin 2.8 G/DL (3.4-5.0) Globulin 8.3 g/dL Albumin/Globulin Ratio 0.3 (1.0-2.7) Urine Color Yellow Urine Appearance Very cloudy Urine pH 6 (4.5-8.0) Urine Specific [place] 1.020 (1.005-1.035) Urine Protein 3+ (NEGATIVE) Urine Glucose (UA) Negative (NEGATIVE) Urine Ketones Negative (NEGATIVE) Urine Blood 5+ (NEGATIVE) Urine Nitrite Positive (NEGATIVE) Urine Bilirubin Negative (NEGATIVE) Urine Urobilinogen 1 MG/DL (0.0-1.0) Urine Leukocyte Esterase 3+ (NEGATIVE) Urine RBC 2-4 /HPF (0 - 2) Urine WBC Tntc /HPF (0 - 2) Urine Squamous Epithelial Cells Occasional /LPF Urine Bacteria Many /HPF (NONE) Last Vital Signs Date Time Temp Pulse Resp B/P (MAP) Pulse Ox O2 Delivery O2 Flow Rate FiO2 02/22/19 19:25 97.3 112 24 124/72 (89) 93 Status: improved Disposition: ADMITTED INPATIENT Condition: Serious Diallo Franks MD Feb 22, 2019 19:54
[2019-02-22 20:35] LABS: BASOPHILS % (AUTO) 0.7 % (0.0-2.0); EOSINOPHILS % (AUTO) 0.5 % (0.0-3.0); HEMATOCRIT 36.5 % (37.0-47.0); HEMOGLOBIN 11.6 G/DL (12.0-16.0); LYMPHOCYTES % (AUTO) 38.1 % (20.0-45.0); MEAN CORPUSCULAR VOLUME 84 FL (80-99); MONOCYTES % (AUTO) 4.9 % (1.0-10.0); NEUTROPHILS % (AUTO) 55.8 % (45.0-75.0); PLATELET COUNT 170 K/UL (150-450); RED BLOOD COUNT 4.34 M/UL (4.20-5.40); RED CELL DISTRIBUTION WIDTH 16.5 % (11.6-14.8); WHITE BLOOD COUNT 14.3 K/UL (4.8-10.8)
[2019-02-22 20:54] LABS: ANION GAP 10 mmol/L (5-15); BLOOD UREA NITROGEN 70 mg/dL (7-18); CARBON DIOXIDE 29 MMOL/L (21-32); CHLORIDE 108 MMOL/L (98-107); CREATININE 1.3 MG/DL (0.55-1.30); POTASSIUM 3.9 MMOL/L (3.5-5.1); SODIUM 147 MMOL/L (136-145)
--- NOTE | 2019-02-22 21:05 | NUR ---
ED Nurse Note: Placed 16F Bryant Catheter on pt. Urine sample taken to lab
[2019-02-22 21:06] LABS: ALANINE AMINOTRANSFERASE 70 U/L (12-78); ALBUMIN 2.8 G/DL (3.4-5.0); ALBUMIN/GLOBULIN RATIO 0.3 (1.0-2.7); ALKALINE PHOSPHATASE 60 U/L (46-116); ASPARTATE AMINO TRANSFERASE 41 U/L (15-37); BILIRUBIN,TOTAL 0.5 MG/DL (0.2-1.0); CREATINE KINASE 374 U/L (26-308); PHOSPHORUS 3.7 MG/DL (2.5-4.9)
[2019-02-22 21:27] LABS: APPEARANCE,URINE VERY CLOUDY; BILIRUBIN, URINE NEGATIVE (NEGATIVE); GLUCOSE, URINE (UA) NEGATIVE (NEGATIVE); KETONES,URINE NEGATIVE (NEGATIVE); LEUKOCYTE ESTERASE ,URINE 3+ (NEGATIVE); NITRITE,URINE POSITIVE (NEGATIVE); PH,URINE 6 (4.5-8.0); PROTEIN,URINE 3+ (NEGATIVE); UROBILINOGEN,URINE 1 MG/DL (0.0-1.0)
[2019-02-22 21:30] VITALS: BP 119/52
[2019-02-22 21:31] LABS: COLOR,URINE YELLOW
[2019-02-22 22:30] VITALS: BP 120/56
--- NOTE | 2019-02-22 22:30 | NUR ---
ED Nurse Note: Pt asleep. No distress noted. pt O2 sat 99% on 2L NC. Will continue to monitor.
--- NOTE | 2019-02-22 23:15 | NUR ---
TRANSFER TO FLOOR: Patient transferred to [facility] as ordered, per MD Bernal . Report given to Yanelis PACHECO. Belongings and medications given to Yanelis PACHECO. Pt stable.
--- NOTE | 2019-02-22 23:30 | NUR ---
NURSE NOTES: Received pt from Er. pt nonverbal unable to communicate, pt very contracted, pt 100% o2 sat on 2l NC. canseco cath in place patent with urine, chrystal color noted. skin intact however nonblanchable redness noted at right hip( right trochanter) optifoam applied to avoid pressure ulcer. no acute distress noted, no s/s of distress. fall risk precaution in place: bed locked and lowest position, side rail upx2. aspiration precaution in place: HOB elevated. will reach DR Bernal for admission orders. will continue to monitor pt for any change in condition.
[2019-02-23] VITALS: BP 120/55
--- NOTE | 2019-02-23 00:15 | NUR ---
NURSE NOTES: tried to reach Dr Bernal for admission orders.awaiting for his call back.
--- NOTE | 2019-02-23 00:50 | NUR ---
NURSE NOTES: tried to reach Dr Bernal for admission orders. left a voice message. awaiting for his call back.
--- NOTE | 2019-02-23 01:00 | NUR ---
NURSE NOTES: pt stable, no acute distress noted, will continue to monitor pt for any change in condition.
--- NOTE | 2019-02-23 01:30 | NUR ---
NURSE NOTES: tried to reach Dr Bernal for admission orders. awaiting for his call back. charge nurse Sruthi and head of housekeeping aware.
--- NOTE | 2019-02-23 03:00 | NUR ---
NURSE NOTES: tried to reach Dr Bernal for admission orders. awaiting for his call back. charge nurse Sruthi aware.
[2019-02-23 04:00] VITALS: BP 129/56
--- NOTE | 2019-02-23 06:05 | NUR ---
NURSE NOTES: Dr Bernal gave admission orders. orders noted and will be carry out.
[2019-02-23] MEDS ORDERED: LORazepam 1mg tab ORAL PRN (06:30)
[2019-02-23] MEDS ORDERED: Zolpidem 5mg tab ORAL PRN (06:30)
[2019-02-23] MEDS ORDERED: Acetaminophen 500mg (ES) tab ORAL PRN (06:30)
--- NOTE | 2019-02-23 06:59 | NUR ---
NURSE NOTES: Pt remains stable, no change in condition. no acute distress noted. bed locked and lowest position, side rail upx2, call light and belonging within reach. all needs met during my shift. all admission orders carried out. will endorse plan of care to incoming nurse.
[2019-02-23] MEDS ORDERED: Piperacillin/Tazobactam 3.375 GM in NS 110 ML IVPB SCH (07:00)
[2019-02-23] MEDS ORDERED: Acetaminophen 650mg/20.3ml GT PRN (07:30)
[2019-02-23] MEDS ORDERED: Zolpidem 5mg tab GT PRN (07:30)
--- NOTE | 2019-02-23 07:32 | NUR ---
HAND-OFF: Report given to JUNIOR Antoine.
[2019-02-23] MEDS ORDERED: Vancomycin 500mg/D5W 110ml IVPB ONE ×2 (08:00)
[2019-02-23 08:21] VITALS: BP 130/60
[2019-02-23] MEDS: Docusate 100mg/10ml Liq GT SCH ×2 (08:23→17:15)
[2019-02-23] MEDS: Ferrous Sulfate 300 MG/5 ML UDC GT SCH ×3 (08:23→17:15)
[2019-02-23] MEDS: OLANZapine 2.5mg tab ORAL SCH ×3 (08:24→17:15)
[2019-02-23] MEDS: Tums 500mg GT SCH (08:24)
[2019-02-23] MEDS: Multivitamin w/Minerals tab ORAL SCH (08:24)
[2019-02-23] MEDS: Brimonidine 0.2% Opth Sol BOTH EYES SCH ×3 (08:24→17:15)
[2019-02-23] MEDS: Ascorbic Acid 500mg tab GT SCH (08:28)
[2019-02-23 08:36] LABS: BASOPHILS % (AUTO) 0.7 % (0.0-2.0); EOSINOPHILS % (AUTO) 0.6 % (0.0-3.0); HEMATOCRIT 34.4 % (37.0-47.0); HEMOGLOBIN 10.7 G/DL (12.0-16.0); LYMPHOCYTES % (AUTO) 33.8 % (20.0-45.0); MEAN CORPUSCULAR VOLUME 88 FL (80-99); MONOCYTES % (AUTO) 5.4 % (1.0-10.0); NEUTROPHILS % (AUTO) 59.5 % (45.0-75.0); PLATELET COUNT 159 K/UL (150-450); RED BLOOD COUNT 3.93 M/UL (4.20-5.40); WHITE BLOOD COUNT 12.6 K/UL (4.8-10.8)
[2019-02-23 08:46] LABS: ANION GAP 9 mmol/L (5-15); BLOOD UREA NITROGEN 63 mg/dL (7-18); CALCIUM 9.5 MG/DL (8.5-10.1); CARBON DIOXIDE 27 MMOL/L (21-32); CHLORIDE 114 MMOL/L (98-107); CREATININE 1.1 MG/DL (0.55-1.30); POTASSIUM 3.9 MMOL/L (3.5-5.1); SODIUM 150 MMOL/L (136-145)
[2019-02-23] MEDS ORDERED: Bisacodyl EC 5mg tab ORAL SCH (09:00)
--- NOTE | 2019-02-23 09:25 | NUR ---
NURSE NOTES: PT AWAKE ALERT, NONVERBAL, HOB ELEVATED, NO DISTRESS. NO RESIDUAL FROM GT, GT PATENT AND INTACT, WILL MONITOR.
[2019-02-23] MEDS: Piperacillin/Tazobactam 3.375 GM in NS 110 ML IVPB SCH ×2 (10:16→17:00)
--- NOTE | 2019-02-23 11:45 | History and Physical Report ---
DATE OF ADMISSION: 02/22/2019 REASON FOR ADMISSION: Sepsis, renal failure. HISTORY OF PRESENT ILLNESS: This is a 79-year-old female, brought in through the emergency room. The patient noted to have significant azotemia and also leukocytosis. The patient treated with IV antibiotics and also being admitted for IV hydration. The patient unable to give much in the way of history. The patient is fairly debilitated at the [facility]. She was noted to be altered and quite lethargic prior to arrival and has baseline confusion. The patient's care discussed and reviewed with the [facility] as well as the ER physician. PAST MEDICAL HISTORY: Notable for hypertension per history, glaucoma, psychosis, osteoporosis, G-tube aspiration, prior contractures. MEDICATIONS: Reviewed. ALLERGIES: Reviewed. SOCIAL HISTORY: The patient is a [facility] patient. She is essentially bedbound. REVIEW OF SYSTEMS: Unobtainable due to the patient's present state. PHYSICAL EXAMINATION: GENERAL: An ill-appearing female. VITAL SIGNS: Blood pressure 129/56, pulse 77, temperature 98.2, respirations 23, and saturations 97%. HEENT: Negative. Extraocular movements are difficult to fully assess. NECK: Supple. LUNGS: With moderate breath sounds. No rhonchi or wheezes. CARDIAC: S1 and S2. Regular rate and rhythm without murmurs, rubs, or gallops. ABDOMEN: Soft, nontender, nondistended. G-tube in place. EXTREMITIES: No cyanosis or clubbing. Atrophy noted. Contractures noted. LABORATORY DATA: Reviewed. White cell count 14.3, platelets 170. Chemistries, BUN 70, creatinine 1.3. PTT 2.7. Albumin 2.8. Sodium 147. IMPRESSION: 1. Acute renal failure. 2. Severe protein-calorie malnutrition. 3. Elevated protein of unclear etiology. 4. Leukocytosis. 5. Possible sepsis. 6. Anemia. 7. Contractures. 8. Bedbound state. 9. G-tube aspiration. RECOMMENDATIONS: Supportive care. IV antibiotics. IV hydration. Resume medications from [facility]. We will hold antihypertensive pending blood pressure. Obtain renal evaluation. Hydrate aggressively. Monitor renal function. Feedings and follow up cultures. Obtain ID evaluation. Reassess and recommend further for changes. Ac Bernal M.D. DR: KALPANA JOB#: [id number] CC:
[2019-02-23 12:30] VITALS: BP 121/69
--- NOTE | 2019-02-23 13:09 | NUR ---
RD ASSESSMENT & RECOMMENDATIONS SEE CARE ACTIVITY FOR COMPLETE ASSESSMENT DAILY ESTIMATED NEEDS: Needs based on Underweight/ 41kg 30-35 kcals/kg 8339-2115 total kcals 1-1.5 g protein/kg 41-62 g total protein 25-30 mL/kg 9039-2366 total fluid mLs NUTRITION DIAGNOSIS: * Swallowing difficulty R/T dysphagia as evidenced by pt is PEG dep. * Increased kcal/prot needs R/T underweight status as evidenced by low BMI per guidelines, noted w/ moderate generalized wasting. CURRENT TF:Jevity 1.2 @ 55ml/hr x 24 hrs ENTERAL NUTRITION RECOMMENDATIONS: Jevity 1.2 @ 50ml/hr x 24 hrs to provide 1200ml, 1440kcal, 66g prot, 938ml free water * Rec to decrease goal rate to 50ml/hr x 24 hrs -> meets 100% est kcal/prot needs * HOB over 30 degrees/ water flush per MD ADDITIONAL RECOMMENDATIONS: * Calibrated bedscale wt, weekly wt monitoring * DC NS IVF and consider D5 IVF or increase water flushes -> Na trending up * Monitor lytes, replete as needed * Consider WC eval: per RN note, non-blanchable redness @ Rt hip
--- NOTE | 2019-02-23 14:45 | NUR ---
CASE MANAGEMENT:REVIEW 79YR OLD FEMALE BIBA FROM [facility] CC: ALOC. INCREASED LETHARGY SI: GENERALIZED WEAKNESS. DEHYDRATION. SEPSIS. UTI 97.4 112 24 124/72 93% ON 2L/NC WBC+14.3 BUN+70 IS: IV ROCEPHIN 1L NS BOLUS CHEST XRAY BLOOD CX : TO TELEMETRY IS: IV ZOSYN Q8HRS IVF@100/HR INTERQUAL CRITERIA MET
[2019-02-23 16:00] VITALS: BP 126/69
--- NOTE | 2019-02-23 16:04 | Cardiology Report ---
APPROVED REPORT EKG Measurement Heart [id number] [id number] Normal sinus rhythm Normal ECG
--- NOTE | 2019-02-23 16:15 | Consultation ---
DATE OF CONSULTATION: 02/23/2019 INFECTIOUS DISEASES CONSULTATION CONSULTING PHYSICIAN: Lindsay Poole M.D. REFERRING PHYSICIAN: Ac Bernal M.D. REASON FOR CONSULTATION: Altered mental status and urinary tract infection. HISTORY OF PRESENTING ILLNESS: This is a 79-year-old lady with history of encephalopathy and psychosis who comes in with increasing letharginess. She was found to have a urinary tract infection and an Infectious Diseases consultation has been obtained for antibiotics. PAST MEDICAL HISTORY: 1. History of psychosis. 2. History of encephalopathy. SOCIAL HISTORY: Unknown. FAMILY HISTORY: Unknown. REVIEW OF SYSTEMS: Unable to obtain currently. MEDICATIONS: As an inpatient, she is on milk of magnesia, Norvasc, ascorbic acid, brimonidine drops, calcium carbonate, docusate, ferrous sulfate, folic acid, multivitamin, Zyprexa, Protonix, Zosyn ,Tylenol, Ambien, Ativan, Mylanta, IV vancomycin. ALLERGIES: To morphine noted. PHYSICAL EXAMINATION: VITAL SIGNS: Temperature of 98.2, T-max of 99, pulse of 70, respiratory rate of 18, blood pressure 120/55, O2 saturation of 99% HEENT: Pupils equally reactive to light and accommodation. Mouth appears clean without thrush. NECK: Supple. No adenopathy. No JVD. CARDIOVASCULAR: Regular rate and rhythm. No murmurs. LUNGS: Clear to auscultation bilaterally. No crackles. No wheezes. ABDOMEN: Soft and nontender. G-tube site appears clean. EXTREMITIES: No cyanosis, no clubbing, no edema. Contracted. LABORATORY AND DIAGNOSTIC DATA: White count of 14.3 on February 22, 2019. White count of 12.6 on February 23, 2019. Hemoglobin 10.7, hematocrit 34.4, MCV 88, platelet count of 159 with neutrophils of 59%. Sodium 150, potassium 3.9, chloride 114, bicarb 27, BUN 63, creatinine 1.1, glucose 99. Calcium 9.5. Total bilirubin 0.5, AST 41, ALT 70, and alkaline phosphatase 60. Total CK of 374, CK-MB 1. Troponin 0.012. Beta natriuretic peptide 315. Total protein 11.1, albumin 2.8. UA showing too numerous to count white cells. Abdominal ultrasound from 05/17/2017 showing large right renal calculi versus staghorn calculi in the right kidney with mild hydronephrosis. ASSESSMENT: This is a 79-year-old lady with history of dementia and encephalopathy who comes in with altered mental status and is found to have. 1. Urinary tract infection. 2. Right kidney stone. PLAN: 1. Continue IV vancomycin and Zosyn. 2. We will order urine cultures. 3. We will order an ultrasound of abdomen. 4. We will follow up cultures and adjust antibiotics accordingly. I would like to thank, Dr. Bernal for this consultation. Lindsay Poole M.D. DR: Yuki JOB#: [id number] CC: Ac Bernal M.D.; Fax#: [phone]
--- NOTE | 2019-02-23 16:19 | Diagnostic Imaging Report ---
Indication: Shortness of breath Technique: One view of the chest Comparison: 03/05/2017 Findings: Old healed fracture deformities of right ribs are again noted. The lungs and pleural spaces are clear. The heart size is normal. Impression: No acute process
--- NOTE | 2019-02-23 18:03 | Diagnostic Imaging Report ---
Indication: Abnormal liver function tests, abnormal renal function tests. Doppler interrogation of the pancreatic and hepatic vessels Technique: Alanis-scale and duplex images of the upper abdomen were obtained Comparison: 05/17/2017 Findings: Gallbladder is mildly distended. No stones or gallbladder wall thickening. Sonographic Beth's sign is negative. Common bile duct measures 2 mm in diameter. No intrahepatic biliary ductal dilatation. Liver demonstrates normal echogenicity, no focal abnormality. Portal vein and hepatic veins are patent. Pancreas is unremarkable. Spleen is mildly enlarged, measuring 13.1 cm long axis dimension Left kidney measures 10.8 cm in length. Right kidney measures 10.4 cm length. Both kidneys demonstrate normal echogenicity. There is at least moderate right hydronephrosis. A large calcification is seen in the renal sinus, and other calcifications are seen scattered throughout the right renal collecting system. Hydronephrosis has progressed since prior study. Calculi were evident previously. Debris is also seen in several of the calyces. . Abdominal aorta is partially obscured by bowel gas, visualized portions are non-aneurysmal . Impression: Moderate right hydronephrosis, increased since prior exam of 05/28/2017. Note large presumed central staghorn calculus, as well as multiple other calyceal calculi, also previously reported. There is also debris within the dilated calyces; infection possible Unremarkable left kidney Negative for gallstones or dilated bile ducts Splenomegaly Note limited visualization of the abdominal aorta
--- NOTE | 2019-02-23 19:08 | NUR ---
HAND-OFF: Report given to BE PACHECO.
--- NOTE | 2019-02-23 19:10 | NUR ---
NURSE NOTES: Received patient from Arash PACHECO. Patient in bed, on room air, no signs of respiratory distress. No residual from peg, on jevity 1.2 55ml/hr. Bryant catheter intact and patent. LFA PIV #22 intact, patent, NS infusing at 100ml/hr, no signs of infiltration or infection.
[2019-02-23 20:00] VITALS: BP 131/74
[2019-02-23] MEDS: Vancomycin 500mg/D5W 110ml IVPB SCH ×2 (20:38)
[2019-02-23] MEDS: Milk of Magnesia 30ml Ud ORAL SCH (20:38)
[2019-02-24] VITALS (7 sets, daily range): BP systolic 89–143; BP diastolic 44–71
[2019-02-24] MEDS: Piperacillin/Tazobactam 3.375 GM in NS 110 ML IVPB SCH ×3 (01:21→17:11)
--- NOTE | 2019-02-24 07:05 | NUR ---
HAND-OFF: Report given to Klever RN. Patient in stable condition, plan of care endorsed.
--- NOTE | 2019-02-24 07:15 | NUR ---
NURSE NOTES: Pt received from JUNIOR Santos currently resting in bed with no acute s/s of distress noted. IV site asymptomatic and patent on L fa 20g, NS at 100/ hr as ordered. G tube feed tolerated - no gastric residual, HOB elevated, aspiration precautions implemented. Bed in lowest position, bed alarm on. Call light and belongings within reach.
[2019-02-24] MEDS: Docusate 100mg/10ml Liq GT SCH ×2 (09:11→17:11)
[2019-02-24] MEDS: Multivitamin w/Minerals tab ORAL SCH (09:11)
[2019-02-24] MEDS: OLANZapine 2.5mg tab ORAL SCH ×3 (09:12→17:11)
[2019-02-24] MEDS: Ascorbic Acid 500mg tab GT SCH (09:12)
[2019-02-24] MEDS: Ferrous Sulfate 300 MG/5 ML UDC GT SCH ×3 (09:12→17:11)
[2019-02-24] MEDS: Tums 500mg GT SCH (09:12)
[2019-02-24] MEDS: Brimonidine 0.2% Opth Sol BOTH EYES SCH ×3 (09:19→17:11)
--- NOTE | 2019-02-24 10:28 | General Progress Note ---
Assessment/Plan Assessment/Plan: 1. Acute renal failure. 2. Severe protein-calorie malnutrition. 3. Elevated protein of unclear etiology. 4. Leukocytosis. 5. Possible sepsis. 6. Anemia. 7. Contractures. 8. Bedbound state. 9. G-tube aspiration. PLAN change to 1/2 NS care noted and reviewed iv antibiotics ID noted still acute GT feeds care as is impression, plan, and exam edited and reviewed in detail care discussed with RN Subjective ROS Limited/Unobtainable: Yes Allergies: Coded Allergies: MORPHINE (Verified Allergy, Unknown, 07/18/09) Subjective care noted and reviewed labs noted Objective Last 24 Hour Vital Signs Date Time Temp Pulse Resp B/P (MAP) Pulse Ox O2 Delivery O2 Flow Rate FiO2 02/24/19 09:13 68 143/64 02/24/19 09:00 Room Air 02/24/19 08:00 61 02/24/19 08:00 98.5 68 20 143/46 (78) 98 02/24/19 04:18 63 103/48 (66) 02/24/19 04:00 97.5 59 20 89/44 (59) 96 02/24/19 03:31 62 02/24/19 00:00 97.6 73 20 117/71 (86) 96 02/23/19 23:35 71 02/23/19 21:00 Room Air 02/23/19 20:20 69 02/23/19 20:00 99.5 77 18 131/74 (93) 99 02/23/19 16:00 98.2 80 20 126/69 (88) 97 02/23/19 15:44 69 02/23/19 12:30 98.2 88 20 121/69 (86) 97 02/23/19 12:08 68 Intake and Output 02/23/19 02/24/19 18:59 06:59 Intake Total 1225.0 ml 1420 ml Output Total 500 ml Balance 1225.0 ml 920 ml Intake Free Water 300 ml IV Total 265.0 ml 1420 ml Tube Feeding 660 ml Output Urine Total 500 ml # Bowel Movements 1 Height (Feet): 5 Height (Inches): 4.00 Weight (Pounds): 88 Objective WDWN NAD on oxygen clear breath sounds bilaterally without rhonchi or wheeze [id number] without MRG NABS nontender no HSM; GT no CCE nonfocal contractures Ac Bernal MD Feb 24, 2019 10:28
--- NOTE | 2019-02-24 11:09 | NUR ---
CASE MANAGEMENT:REVIEW 02/24/19 SI: ACUTE RENAL FAILURE. POSSIBLE SEPSIS 98.5 61 20 143/46 98% ON RA IS: IVF@100/HR IV VANCOMYCIN Q24 IV ZOSYN Q8HRS NORVASC GT QD : TELEMETRY STATUS DCP: FROM EMILEE LOMAS
--- NOTE | 2019-02-24 19:15 | NUR ---
NURSE NOTES: Received patient from EDGAR PACHECO. Patient in bed, on room air, no signs of respiratory distress. No residual from G tube, on Jevity 1.2 at 55ml/hr. Bryant catheter intact and patent. PIV on left forearm, #22, patent, intact, no signs of infiltration or infection. Bilateral SCDs on. Bed in low position, locked, bed alarm on, call light within reach.
--- NOTE | 2019-02-24 19:15 | NUR ---
HAND-OFF: Report given to JUNIOR Santos. No acute s/s of distress noted.
[2019-02-24] MEDS: Milk of Magnesia 30ml Ud ORAL SCH (20:33)
[2019-02-24] MEDS: Vancomycin 500mg/D5W 110ml IVPB SCH ×2 (20:36)
[2019-02-25] VITALS: BP 96/45
[2019-02-25] MEDS: Piperacillin/Tazobactam 3.375 GM in NS 110 ML IVPB SCH ×2 (00:49→10:01)
[2019-02-25 04:00] VITALS: BP 108/50
--- NOTE | 2019-02-25 07:23 | NUR ---
NURSE NOTES: Received call from microbiology, patient's urine culture is positive for ESBL e coli. Notified Dr. Poole and left message regarding critical lab.
[2019-02-25 07:27] LABS: ANION GAP 8 mmol/L (5-15); BLOOD UREA NITROGEN 38 mg/dL (7-18); CALCIUM 8.7 MG/DL (8.5-10.1); CARBON DIOXIDE 24 MMOL/L (21-32); CHLORIDE 112 MMOL/L (98-107); POTASSIUM 4.7 MMOL/L (3.5-5.1); SODIUM 144 MMOL/L (136-145)
[2019-02-25 07:29] LABS: BASOPHILS % (AUTO) 0.6 % (0.0-2.0); EOSINOPHILS % (AUTO) 2.4 % (0.0-3.0); HEMATOCRIT 30.5 % (37.0-47.0); HEMOGLOBIN 9.6 G/DL (12.0-16.0); LYMPHOCYTES % (AUTO) 32.6 % (20.0-45.0); MEAN CORPUSCULAR VOLUME 87 FL (80-99); MONOCYTES % (AUTO) 4.9 % (1.0-10.0); NEUTROPHILS % (AUTO) 59.5 % (45.0-75.0); PLATELET COUNT 117 K/UL (150-450); RED BLOOD COUNT 3.49 M/UL (4.20-5.40); RED CELL DISTRIBUTION WIDTH 16.8 % (11.6-14.8); WHITE BLOOD COUNT 7.8 K/UL (4.8-10.8)
--- NOTE | 2019-02-25 07:40 | NUR ---
HAND-OFF: Report given to Rosmery PACHECO. Plan of care endorsed.
--- NOTE | 2019-02-25 07:41 | NUR ---
NURSE NOTES: Received report from JUNIOR Santos. The patient is resting on the bed without acute distress or shortness of breath. The patient's bed in the lowest position, call light in reach, and fall and aspiration precaution reinforced. Confirmed tube feeding. IV site intact and patent. Will continue plan of care.
--- NOTE | 2019-02-25 08:13 | General Progress Note ---
Assessment/Plan Assessment/Plan: 1. Acute renal failure. 2. Severe protein-calorie malnutrition. 3. Elevated protein of unclear etiology. 4. Leukocytosis. 5. Possible sepsis. 6. Anemia. 7. Contractures. 8. Bedbound state. 9. G-tube aspiration. PLAN maintain 1/2 NS care noted and reviewed iv antibiotics noted ID noted- await clearance still acute GT feeds care as is impression, plan, and exam edited and reviewed in detail care discussed with RN Subjective ROS Limited/Unobtainable: Yes Allergies: Coded Allergies: MORPHINE (Verified Allergy, Unknown, 07/18/09) Subjective care noted and reviewed labs noted Objective Last 24 Hour Vital Signs Date Time Temp Pulse Resp B/P (MAP) Pulse Ox O2 Delivery O2 Flow Rate FiO2 02/25/19 04:00 59 02/25/19 04:00 97.6 59 20 108/50 (69) 99 02/25/19 03:20 59 02/25/19 00:00 97.8 58 20 96/45 (62) 96 02/24/19 23:33 58 02/24/19 21:00 Room Air 02/24/19 20:00 97.0 62 18 105/50 (68) 96 02/24/19 19:47 60 02/24/19 16:00 98.5 71 21 110/68 (82) 98 02/24/19 16:00 65 02/24/19 12:00 66 02/24/19 12:00 98.4 68 20 129/63 (85) 98 02/24/19 09:13 68 143/64 02/24/19 09:00 Room Air Intake and Output 02/24/19 02/25/19 19:00 07:00 Intake Total 2897.5 ml 1310 ml Output Total 500 ml 801 ml Balance 2397.5 ml 509 ml Intake Free Water 600 ml IV Total 1637.5 ml 1310 ml Tube Feeding 660 ml Output Urine Total 500 ml 800 ml Stool Total 1 ml # Bowel Movements 1 1 Laboratory Tests 02/25/19 06:52: White Blood Count 7.8, Red Blood Count 3.49L, Hemoglobin 9.6L, Hematocrit 30.5L , Mean Corpuscular Volume 87, Mean Corpuscular Hemoglobin 27.5, Mean Corpuscular Hemoglobin Concent 31.5L, Red Cell Distribution Width 16.8H, Platelet Count 117L, Mean Platelet Volume 8.3, Neutrophils (%) (Auto) 59.5, Lymphocytes (%) (Auto) 32.6, Monocytes (%) (Auto) 4.9, Eosinophils (%) (Auto) 2.4, Basophils (%) (Auto) 0.6, Sodium Level 144, Potassium Level 4.7, Chloride Level 112H, Carbon Dioxide Level 24, Anion Gap 8, Blood Urea Nitrogen 38H, Creatinine 1.0, Estimat Glomerular Filtration Rate , Glucose Level 122H, Calcium Level 8.7 Height (Feet): 5 Height (Inches): 4.00 Weight (Pounds): 88 Objective WDWN NAD on oxygen clear breath sounds bilaterally without rhonchi or wheeze [id number] without MRG NABS nontender no HSM; GT no CCE nonfocal contractures Ac Bernal MD Feb 25, 2019 08:13
[2019-02-25] MEDS: Brimonidine 0.2% Opth Sol BOTH EYES SCH ×2 (09:59→13:50)
[2019-02-25] MEDS: Docusate 100mg/10ml Liq GT SCH (09:59)
[2019-02-25] MEDS: Ferrous Sulfate 300 MG/5 ML UDC GT SCH ×2 (09:59→13:50)
[2019-02-25] MEDS: Ascorbic Acid 500mg tab GT SCH (10:00)
[2019-02-25] MEDS: Tums 500mg GT SCH (10:00)
[2019-02-25] MEDS: Multivitamin w/Minerals tab ORAL SCH (10:01)
[2019-02-25 10:50] VITALS: BP 135/61
--- NOTE | 2019-02-25 10:50 | NUR ---
NURSE NOTES: The patient refused morning vital sign. Risk of non-compliance explained and permitted to take vital signs for her on 1050. Her blood pressure was 135/61, pulse of 74, and RR 20, O2 saturation of 96%, and temperature of 97.5. Late dose of Amlodipine given to the patient.
--- NOTE | 2019-02-25 11:18 | NUR ---
DISCHARGE PLANNED DISCHARGE ORDER NOTED PATIENT IS RETURNING TO [facility] ROOM 120B ASSISTED T: [phone] FOR NURSE TO NURSE REPORT [facility] HAS BEEN ARRANGED FOR 1330 CONSTRUCTION COORDINATOR
--- NOTE | 2019-02-25 11:28 | Infectious Diseases Prog Note ---
Assessment/Plan Assessment/Plan antibiotics : vancomycin iv, zosyn A 1. e.coli esbl UTI 2. renal stone 3. hydronephrosis 4. dementia P 1. d/c iv vancomycin, zosyn 2. start meropenem 3. suggest urology evaluation 4. will follow up cultures Subjective ROS Limited/Unobtainable: Yes Allergies: Coded Allergies: MORPHINE (Verified Allergy, Unknown, 07/18/09) Objective Vital Signs Last 24 Hour Vital Signs Date Time Temp Pulse Resp B/P (MAP) Pulse Ox O2 Delivery O2 Flow Rate FiO2 02/25/19 10:56 74 135/61 02/25/19 10:50 97.5 74 20 135/61 (85) 96 02/25/19 09:00 Room Air 02/25/19 04:00 59 02/25/19 04:00 97.6 59 20 108/50 (69) 99 02/25/19 03:20 59 02/25/19 00:00 97.8 58 20 96/45 (62) 96 02/24/19 23:33 58 02/24/19 21:00 Room Air 02/24/19 20:00 97.0 62 18 105/50 (68) 96 02/24/19 19:47 60 02/24/19 16:00 98.5 71 21 110/68 (82) 98 02/24/19 16:00 65 02/24/19 12:00 66 02/24/19 12:00 98.4 68 20 129/63 (85) 98 Height (Feet): 5 Height (Inches): 4.00 Weight (Pounds): 88 Respiratory/Chest: lungs clear Cardiovascular: normal rate, regular rhythm, no gallop/murmur Abdomen: soft, non tender, other - GT Extremities: no edema Microbiology Date/Time Source Procedure Growth Status 02/22/19 20:23 Blood Blood Culture - Preliminary NO GROWTH AFTER 48 HOURS Resulted 02/22/19 20:08 Blood Blood Culture - Preliminary NO GROWTH AFTER 48 HOURS Resulted 02/22/19 21:05 Nasal Nares MRSA Culture - Final Staphylococcus Aureus - Mrsa Complete 02/22/19 21:05 Urine,Clean Catch Urine Culture - Final Escherichia Coli - Esbl Complete 02/22/19 21:05 Rectum - Final NO CARBAPENEM-RESISTANT ENTEROBACTERI... Complete 02/22/19 21:05 Rectum VRE Culture - Final NO VANCOMYCIN RESISTANT ENTEROCOCCUS ... Complete Laboratory Tests Test 02/25/19 06:52 White Blood Count 7.8 K/UL (4.8-10.8) Red Blood Count 3.49 M/UL (4.20-5.40) L Hemoglobin 9.6 G/DL (12.0-16.0) L Hematocrit 30.5 % (37.0-47.0) L Mean Corpuscular Volume 87 FL (80-99) Mean Corpuscular Hemoglobin 27.5 PG (27.0-31.0) Mean Corpuscular Hemoglobin Concent 31.5 G/DL (32.0-36.0) L Red Cell Distribution Width 16.8 % (11.6-14.8) H Platelet Count 117 K/UL (150-450) L Mean Platelet Volume 8.3 FL (6.5-10.1) Neutrophils (%) (Auto) 59.5 % (45.0-75.0) Lymphocytes (%) (Auto) 32.6 % (20.0-45.0) Monocytes (%) (Auto) 4.9 % (1.0-10.0) Eosinophils (%) (Auto) 2.4 % (0.0-3.0) Basophils (%) (Auto) 0.6 % (0.0-2.0) Sodium Level 144 MMOL/L (136-145) Potassium Level 4.7 MMOL/L (3.5-5.1) Chloride Level 112 MMOL/L (98-107) H Carbon Dioxide Level 24 MMOL/L (21-32) Anion Gap 8 mmol/L (5-15) Blood Urea Nitrogen 38 mg/dL (7-18) H Creatinine 1.0 MG/DL (0.55-1.30) Estimat Glomerular Filtration Rate mL/min (>60) Glucose Level 122 MG/DL (74-106) H Calcium Level 8.7 MG/DL (8.5-10.1) Current Medications Medications (Trade) Dose Ordered Sig/Marcos Route PRN Reason Start Time Stop Time Status Last Admin Dose Admin Acetaminophen (Tylenol) 650 mg Q4H PRN GT T>100.5/MILD PAIN/OCHOA 02/23/19 07:30 03/25/19 07:29 Al Hydroxide/Mg Hydroxide (Mylanta) 30 ml EVERY 4 HOURS PRN ORAL Nausea & Vomiting 02/23/19 06:15 03/25/19 06:14 Amlodipine Besylate (Norvasc) 5 mg DAILY GT 02/23/19 09:00 03/25/19 08:59 02/25/19 10:56 Ascorbic Acid (Vitamin C) 500 mg DAILY GT 02/23/19 09:00 03/25/19 08:59 02/25/19 10:00 Brimonidine Tartrate (Alphagan) 1 drop TID BOTH EYES 02/23/19 09:00 03/25/19 08:59 02/25/19 09:59 Calcium Carbonate (Tums) 500 mg DAILY GT 02/23/19 09:00 03/25/19 08:59 02/25/19 10:00 Docusate Sodium (Colace) 100 mg TWICE A DAY GT 02/23/19 09:00 03/25/19 08:59 02/25/19 09:59 Ferrous Sulfate (Feosol) 300 mg TID GT 02/23/19 09:00 03/25/19 08:59 02/25/19 09:59 Folic Acid (Folate) 1 mg DAILY GT 02/23/19 09:00 03/25/19 08:59 02/25/19 09:59 Lorazepam (Ativan) 1 mg Q4HR PRN ORAL For Anxiety 02/23/19 06:30 03/02/19 06:29 Magnesium Hydroxide (Mom) 30 ml BEDTIME ORAL 02/23/19 21:00 03/25/19 20:59 02/24/19 20:33 Multivitamins Therapeutic (Therapeutic Multivitamin) 1 ea DAILY ORAL 02/23/19 09:00 03/25/19 08:59 02/25/19 10:01 Olanzapine (ZyPREXA) 5 mg TID GT 02/25/19 09:00 03/25/19 08:59 02/25/19 10:00 Pantoprazole (Protonix) 40 mg DAILY ORAL 02/23/19 09:00 03/25/19 08:59 02/25/19 10:01 Piperacillin Sod/ Tazobactam Sod 3.375 gm/Sodium Chloride 110 ml @ 27.5 mls/hr Q8H IVPB 02/23/19 09:00 03/02/19 08:59 02/25/19 10:01 Sodium Chloride 1,000 ml @ 100 mls/hr Q10H IV 02/24/19 10:30 03/26/19 10:29 02/25/19 06:01 Vancomycin HCl (Vanco rx to dose) 1 ea DAILY PRN MISC Per rx protocol 02/23/19 06:15 03/25/19 06:14 Vancomycin HCl 500 mg/Dextrose 110 ml @ 110 mls/hr Q24H IVPB 02/23/19 20:00 02/28/19 19:59 02/24/19 20:36 Zolpidem Tartrate (Ambien) 5 mg HSPRN PRN GT Insomnia 02/23/19 07:30 03/02/19 06:29 Lindsay Poole MD Feb 25, 2019 11:28
--- NOTE | 2019-02-25 11:45 | CDS Physician Query ---
PLEASE COMPLETE DOCUMENT BEFORE SIGNING Dear Dr. Ac Bernal Date: 02/25/2019 Environmental Health [employer] Safety Intern/CDS Name: Luana Gaviria Exercise your independent professional judgment when responding to the query. Questions asked do not imply a particular answer is desired or expected. We greatly appreciate your clarification on this issue. CLINICAL DOCUMENTATION STATES: HNP: 79-year-old female...noted to have significant azotemia and also leukocytosis... Severe protein-calorie malnutrition...Possible sepsis...Contractures, Bedbound state, G-tube aspiration 02/24 care trends strength assessment: 10/13 bilateral arm and leg Please respond to the following question: Is there a diagnosis specific to these symptoms or values? If so please state below. PHYSICIAN RESPONSE: [] Complete immobility due to disability/fraillty [x] Functional Quadriplegia [] Other [] Not applicable Condition Present on Admission: [x] Yes [] No []Clinically Undeterminable Please also document in your Progress Notes and/or Discharge Summary and indicate if the condition was present on admission. Signature Date MTDD
--- NOTE | 2019-02-25 11:55 | CDS Physician Query ---
Clarification is required for compliance, coding accuracy, and to reflect severity of illness for this patient Dear Dr. Ac Bernal Date: 02/25/2019 [place] Preparer/CDS Name: Luana Gaviria Clinical documentation states: HNP: 79-year-old female...noted to have significant azotemia and also leukocytosis. The patient treated with IV antibiotics and also being admitted for IV hydration. The patient unable to give much in the way of history. The patient is fairly debilitated at the [facility]. She was noted to be altered and quite lethargic prior to arrival and has baseline confusion...Sepsis Infectious disease note: 79-year-old lady with history of dementia and encephalopathy who comes in with altered mental status and is found to have Urinary tract infection. Please indicate the nature and chronicity of the condition below: [x] Metabolic Encephalopathy [x] Dementia with behavioral disturbance [] Dementia with delirium [] Toxic - Metabolic Encephalopathy [] Encephalopathy, Other [] Other: [] Not Applicable Present on Admission: [x] Yes [] No [] Clinically Undetermined Physician signature Date Please also document in your Progress Notes and/or Discharge Summary and indicate if the condition was present on admission. MTDD
--- NOTE | 2019-02-25 12:00 | NUR ---
NURSE NOTES: Reported positive E.coli and ESBL urine culture and positive MRSA nares to Dr. Bernal and Dr. Poole. Will continue to monitor the patient and will carry out the order as soon as I receives it.
--- NOTE | 2019-02-25 13:36 | NUR ---
NURSE NOTES: In regards to discharge, resume SNF medication per Dr. Bernal and add Meropenum 500mg in NS 55mL IVPB Q8hrs for 6 days with rate of 110mL/hr for UTI per Dr. Poole. Per Dr. Bernal, keep IV for Meropenum infusion at [facility]. Per Dr. Bernal, keep Bryant cath upon discharge.
[2019-02-25] MEDS ORDERED: Meropenem 500 MG in NS 55 ML IVPB SCH (14:00)
--- NOTE | 2019-02-25 14:00 | NUR ---
NURSE NOTES: Report given to Maral, receiving nurse at [facility]. The patient will be transferred back to room 120B @ [facility]. Fully explained course of hospitalization and new orders. At this time, the patient denies of acute distress or shortness of breath. Spoke with Rashid Linguastat for setting up the transportation. The transportation is scheduled for 1600.
[2019-02-25] MEDS ORDERED: MEROPENEM-500 MG/50 IV (15:08)
[2019-02-25 16:00] VITALS: BP 106/73
--- NOTE | 2019-02-25 16:18 | NUR ---
NURSE NOTES: Report given to Yvonne at [facility]. Report also given to Maral @ [facility] who is a receiving nurse. Discharge instruction, education, new medication, fall and aspiration precaution, MRSA positive nares isolation, UC positive for ESBL and E.coli report given to Maral, receiving nurse. Per Dr. Bernal's order, the patient will keep IV, Bryant, and G-tube. Tele box and name band removed by the nurse. Inventory checked with the patient but unable to sign due to contracture. Inventory and belongings checked with transporters again upon discharge. MRSA nares and anus swabs completed. Right hip redness dressing changed and took the picture. The patient's vital signs were as follows: blood pressure of 106/73, pulse of 77, and RR of 16 in room air. The patient is safely discharged by transporters from [facility].
--- NOTE | 2019-02-25 23:13 | Diagnostic Imaging Report ---
APPROVED REPORT CPT Code: 51667 Present Symptoms Shortness of breath Comments: Technically difficult study due to BLE contracture of hip and knee. BILATERAL: Imaging reveals a patent deep venous system bilaterally. There is no evidence of thrombus within the femoral, popliteal or tibial segments. The greater saphenous veins are also within normal limits. Doppler indicates normal spontaneous flow within these segments.
--- NOTE | 2019-02-26 10:39 | Discharge Summary ---
Discharge Summary Discharge Summary _ DATE OF ADMISSION: 02/22/2019 DATE OF DISCHARGE: 02/25/2019 DISCHARGED BY: Dr. Portillo Bernal CONSULTANTS: Dr. Lindsay Poole BRIEF HOSPITAL COURSE: Patient a 79-year-old female, who was brought in through the emergency room via EMS due to increased altered mental status. The patient was unable to give much history. The patient was [facility] deb[facility]ated at the prison. Per records, she has medical history significant for hypertension, glaucoma, psychosis, osteoporosis, G-tube aspiration, and contractures. On evaluation of the ED, blood pressure was 124/72, heart rate 112. Blood work showed WBC of 14.3. Hemoglobin 11.6, hematocrit 36.5. BUN was elevated to 70 and creatinine 1.3. Troponin was negative. Urinalyses showed +3 protein, +5 blood, positive nitrite, +3 leukocyte esterase, too many to count urine WBC and 2-4 urine RBC. Chest x-ray did not show any acute process. She was found to have azotemia and leukocytosis. She was then admitted for evaluation of renal failure. She was given supportive care. She was given IV hydration. intermediate medications were resumed. ID was consulted. She was given IV vancomycin and Zosyn pending culture results. Duplex of the lower extremity was negative for acute DVT. Abdominal ultrasound showed moderate right hydronephrosis and a large presumed central staghorn calculus left kidney was unremarkable. Blood culture did not isolate any growth. Urine culture showed growth of ESBL E. coli. IV vancomycin and Zosyn were discontinued. She was started on meropenem. Leukocytosis resolved. Kidney function improved. Patient was discharged back to prison to complete antibiotic treatment. FINAL DIAGNOSES: Acute renal failure Metabolic encephalopathy, present on admission Dementia with behavioral disturbance, present on admission Severe protein calorie malnutrition Elevated protein of unclear etiology Leukocytosis Possible sepsis Anemia Contractures Bedbound status/functional quadriplegia G-tube aspiration DISPOSITION: Patient was discharged to a SNF. DISCHARGE MEDICATIONS: Refer to Discharge Medication List. Continue meropenem for 6 more days at the prison. DISCHARGE INSTRUCTIONS: Follow-up with urologist. I have been assigned to complete a discharge summary on this account, I was not involved with the patient's management.--TRES Rodas Jacqueline Robles NP Feb 26, 2019 10:39
== END 2019-02-25 16:37 | DRG 871 ==
LOC: EDBD 19:25 → EMR 20:08 → EDBEDREQ 20:19 → 2E 21:45 → EDBEDREQ 22:23
DX: A41.9 Sepsis, unspecified organism (principal); E43 Unspecified severe protein-calorie malnutrition; G93.41 Metabolic encephalopathy; R53.2 Functional quadriplegia; Z68.1 Body mass index [BMI] 19.9 or less, adult; N17.9 Acute kidney failure, unspecified; N39.0 Urinary tract infection, site not specified; F03.91 Unspecified dementia, unspecified severity, with behavioral disturbance; N13.2 Hydronephrosis with renal and ureteral calculous obstruction; Z88.6 Allergy status to analgesic agent; I10 Essential (primary) hypertension; H40.9 Unspecified glaucoma; D64.9 Anemia, unspecified; M81.0 Age-related osteoporosis without current pathological fracture; M24.50 Contracture, unspecified joint; B96.20 Unspecified Escherichia coli [E. coli] as the cause of diseases classified elsewhere; Z16.12 Extended spectrum beta lactamase (ESBL) resistance
CPT/HCPCS: 36415; 51702; 71045; 76700; 80048; 80053; 81003; 82550; 82553; 83605; 83735; 83880; 84100; 84484; 85025; 87040; 87081; 87086; 87181; 93005; 93970; 96365; 99285

== ENCOUNTER 2019-03-14 01:40 | Inpatient (IN) | payer MEDICARE, MEDICAID ==
[~2019-03-14] VITALS: Ht 152.4 cm; Wt 45.8 kg
[2019-03-14] VITALS (7 sets, daily range): BP systolic 98–131; BP diastolic 43–69
[~2019-03-14 01:40] MED LIST changes: +ACETAMINOP160 MG/5 M GT; +AMBIEN5 MG GT; -AMBIEN5 MG ORAL; +ATIVAN1 MG GT; -ATIVAN1 MG ORAL; +BACLOFEN5 GM GT; +BISACODYL5 MG GT; -BISACODYL5 MG ORAL; +EPOGEN20000 UNIT SUBQ; +MEROPENEM-500 MG/50 IV; +MOM30 ML GT; +NORVASC5 MG GT; +ZYPREXA5 MG GT; -ZYPREXA5 MG ORAL; +ZYPREXA7.5 MG GT
--- NOTE | 2019-03-14 01:40 | NUR ---
ED Nurse Note: Patient po from [facility] c/o resp distress. EMS states that the patient was stting at 80% on room air. at time of arrival patient is placed on a non rebreather and was satting at 100%. patient is hot to touch with a rectal temp of 104.4. patient is nonverbal however responds to painful stimuli. patient is contracted bilateral arms and legs. patient has redness on the lower coccyx area as well as the left hip. no open wounds noted. IV started on right hand 18 gauge. canseco inserted as well. received order for tylenol suppository.
--- NOTE | 2019-03-14 01:40 | NUR ---
Note undone in EDM - 03/14/19 at 0346 by PADMINI ED Nurse Note: Patient po from [facility] c/o resp distress. EMS states that the patient was stting at 80% on room air. at time of arrival patient is placed on a non rebreather and was satting at 100%. patient is hot to touch with a rectal temp of 104.4. patient is nonverbal however responds to painful stimuli. patient is contracted bilateral arms and legs. patient has redness on the lower coccyx area as well as the right thigh. no open wounds noted. IV started on right hand 18 gauge. canseco inserted as well. received order for tylenol suppository.
[2019-03-14] MEDS ORDERED: ZYPREXA5 MG ORAL (01:48)
--- NOTE | 2019-03-14 01:56 | Emergency Room Report ---
History of Present Illness General Chief Complaint: Dyspnea/Respdistress Source: Medical Record, EMS Present Illness HPI This is a 79-year-old female who is a [facility] patient with severely debilitated. She has psychiatric history and previous sepsis. She was just discharged from this hospital with ESBL E coli infection. She presents with complaint of altered mental status. She also had fever. Onset today. Decreased mental status per fdc. Per EMS, she was also hypoxic on room air. Unable to get any other history for this patient because of her condition. Allergies: Coded Allergies: MORPHINE (Verified Allergy, Unknown, 07/18/09) Patient History Past Medical History: see triage record, old chart reviewed Past Surgical History: other Pertinent Family History: none Social History: Denies: smoking Now: No Immunizations: other Reviewed Nursing Documentation: PMH: Agreed; PSxH: Agreed Nursing Documentation-PMH Past Medical History: No History, Except For Hx Hypertension: No Hx Pacemaker: No Hx Asthma: No Hx COPD: No Hx Cancer: No Hx Gastrointestinal Problems: Yes Hx Dialysis: No - kidney failure Hx Neurological Problems: Yes Hx Encephalitis: Yes Hx Aphasia: Yes Hx Weakness: Yes Review of Systems Constitutional: Reports: fever, malaise All Other Systems: limited - Secondary to patient's condition Physical Exam Vital Signs Date Time Temp Pulse Resp B/P (MAP) Pulse Ox O2 Delivery O2 Flow Rate FiO2 03/14/19 01:40 104.4 101 36 118/49 (72) 96 Non-Rebreather 15.0 Vitals with fever Sp02 EP Interpretation: reviewed, abnormal General Appearance: moderate distress, cachetic, Chronically Ill, Stupor Head: normocephalic, atraumatic Eyes: bilateral eye PERRL, bilateral eye EOMI ENT: dry mucus membranes Neck: other - Contracted Respiratory: chest non-tender, rhonchi Cardiovascular #1: regular rate, rhythm, no murmur, tachycardia Gastrointestinal: normal bowel sounds, non tender, no mass, no organomegaly, no bruit, non-distended Musculoskeletal: other - She is severely contracted Procedures Critical Care Time Critical Care Time Critical care is mandated in this patient who presented with sepsis from UTI and pneumonia. Patient require my urgent intervention to attenuate the risks of metabolic collapse which may lead to cardiovascular collapse and . Critical care time is 35 minutes excluding any reportable procedure. Critical care time included evaluation, multiple reevaluation, looking at old charts, interpreting laboratory and diagnostic data, discussing case with patient and family and consultants, and charting. Medical Decision Making Diagnostic Impression: Primary Impression: Sepsis Qualified Codes: A41.9 - Sepsis, unspecified organism Additional Impressions: HCAP (healthcare-associated pneumonia) ESBL (extended spectrum beta-lactamase) producing bacteria infection ARF (acute renal failure) Qualified Codes: N17.9 - Acute kidney failure, unspecified Acute metabolic encephalopathy Dehydration Proteinuria Qualified Codes: R80.9 - Proteinuria, unspecified ER Course Patient presents with fever and altered mental status. She has sepsis from both pneumonia and UTI. She grew out ESBL E. coli on the last admission. Sensitive to meropenem. I also added Levaquin for coverage of pneumonia. She is much improved after IV fluid. Troponin is intermediate. Probably ischemia from infection. BP is been stable here. Heart rate improved. Will admit for IV fluids and IV antibiotics. I contacted Dr. Bernal for admission. Sepsis reevaluation Vital signs: Please see nursing note General: Improved mentation Lungs: Better air movement Cardiovascular: Heart rate improved. Abdomen: Soft Extremities: No edema Skin: No mottling Capillary refills: Less than 2 seconds EKG Diagnostic Results Rate: normal Rhythm: NSR ST Segments: other - Non specific ST changes Rhythm Strip Diag. Results EP Interpretation: yes Rate: 100 Rhythm: NSR, no PVC's, no ectopy Chest X-Ray Diagnostic Results Chest X-Ray Diagnostic Results : Chest X-Ray Ordered: Yes # of Views/Limited/Complete: 1 View Indication: Shortness of Breath EP Interpretation: Yes Interpretation: no effusion, no pneumothorax, other - Right inferior upper lobe infiltrates Impression: Other - RUL infiltrate Electronically Signed by: Aayush Braga MD Last Vital Signs Date Time Temp Pulse Resp B/P (MAP) Pulse Ox O2 Delivery O2 Flow Rate FiO2 03/14/19 01:40 104.4 101 36 118/49 (72) 96 Non-Rebreather 15.0 Status: improved Disposition: ADMITTED INPATIENT Condition: Serious Aayush Braga MD Mar 14, 2019 01:56
[2019-03-14] MEDS ORDERED: Acetaminophen 650 MG SUPP RECTAL ONE (02:00)
[2019-03-14] MEDS ORDERED: Meropenem 1 GM in NS 55 ML IVPB ONE (02:00)
[2019-03-14 02:11] LABS: APPEARANCE,URINE CLOUDY; BILIRUBIN, URINE NEGATIVE (NEGATIVE); GLUCOSE, URINE (UA) NEGATIVE (NEGATIVE); KETONES,URINE 1+ (NEGATIVE); LEUKOCYTE ESTERASE ,URINE 3+ (NEGATIVE); NITRITE,URINE NEGATIVE (NEGATIVE); PH,URINE 5 (4.5-8.0); PROTEIN,URINE 3+ (NEGATIVE); UROBILINOGEN,URINE 1 MG/DL (0.0-1.0)
[2019-03-14 02:12] LABS: COLOR,URINE YELLOW
[2019-03-14 02:16] LABS: HEMOGLOBIN 13.3 G/DL (12.0-16.0); MEAN CORPUSCULAR VOLUME 90 FL (80-99); PLATELET COUNT 168 K/UL (150-450); RED BLOOD COUNT 4.76 M/UL (4.20-5.40); RED CELL DISTRIBUTION WIDTH 16.6 % (11.6-14.8); WHITE BLOOD COUNT 23.2 K/UL (4.8-10.8)
[2019-03-14 02:19] LABS: INR 1.1 (0.9-1.1)
[2019-03-14 02:22] LABS: ANION GAP 10 mmol/L (5-15); BLOOD UREA NITROGEN 90 mg/dL (7-18); CALCIUM 9.6 MG/DL (8.5-10.1); CARBON DIOXIDE 27 MMOL/L (21-32); CHLORIDE 112 MMOL/L (98-107); POTASSIUM 4.1 MMOL/L (3.5-5.1); SODIUM 149 MMOL/L (136-145)
[2019-03-14 02:36] LABS: ALANINE AMINOTRANSFERASE 99 U/L (12-78); ALBUMIN 2.4 G/DL (3.4-5.0); ALBUMIN/GLOBULIN RATIO 0.3 (1.0-2.7); ALKALINE PHOSPHATASE 48 U/L (46-116); ASPARTATE AMINO TRANSFERASE 69 U/L (15-37); BILIRUBIN,TOTAL 0.6 MG/DL (0.2-1.0); CREATINE KINASE 849 U/L (26-308)
--- NOTE | 2019-03-14 02:37 | NUR ---
ED Nurse Note: RECTAL TEMP OF 99.2
--- NOTE | 2019-03-14 02:44 | Diagnostic Imaging Report ---
EXAM: XR Chest, 1 View. CLINICAL HISTORY: SOB TECHNIQUE: Frontal view of the chest. COMPARISON: 02/22/19 FINDINGS: Lungs: Lung volumes are within normal limits. Increased interstitial markings throughout both lungs suggestive of interstitial edema. No definite airspace consolidation. Heart: Unremarkable. No cardiomegaly. Mediastinum: Unremarkable. Bones: Unremarkable. No acute fracture. IMPRESSION: Mild interstitial edema, which may be due to volume overload or congestive heart failure. No airspace consolidation.
--- NOTE | 2019-03-14 03:30 | NUR ---
ED Nurse Note: Patient's abg showed oxygen of 418. Dr. Braga notified and aware. Per , placed patient on 5 liters of nasal cannula. okay to go up.
--- NOTE | 2019-03-14 03:45 | NUR ---
Jack aragon in ED - 03/14/19 at 0551 by DANIAL TRANSFER TO FLOOR: Patient transferred to SDU as ordered, per . Report given to JUNIOR Payne.
--- NOTE | 2019-03-14 03:50 | NUR ---
NURSE NOTES: Received pt from ED via gurney. Pt transferred to unit and bed without any incident. Received report from JUNIOR Curtis. Received pt on 5L NC saturating at 85%, breathing through mouth, and using accessory muscles. Called Carmen BRADY, who put pt on non-rebreather mask at 100% and FiO2 55%. Contacted Dr. Bernal regarding pt's condition. Dr. Bernal gave orders to transfer pt to SDU with admission orders to repeat ABGs and put pt on BiPAP 22/04. residential monitor in placed; pt is NSR. IV site intact, asymptomatic, and patent. Pt has G-tube; currently clamped. Will continue to monitor pt until transfer. Addendum: 03/14/19 at 0635 by Lima Zamora Mai, RN Received pt from ED via rney to Telemetry room 203-2. Non-rebreather mask at 100% O2. Then RTCarmen changed pt to Ventri-mask at 14L Oxygen, FiO2 55%.
--- NOTE | 2019-03-14 04:09 | NUR ---
NURSE NOTES: Called Dr. Bernal regarding patient desaturating to 86% on 5L nasal cannula. Awaiting callback.
[2019-03-14] MEDS ORDERED: Albuterol ud Inhalation HHN PRN ×2 (04:45→07:00)
[2019-03-14] MEDS ORDERED: Acetaminophen 650mg/20.3ml NG PRN (04:45)
[2019-03-14] MEDS ORDERED: LORazepam 1mg tab ORAL PRN ×2 (05:00→09:00)
[2019-03-14] MEDS ORDERED: Milk of Magnesia 30ml Ud GT PRN ×2 (05:00→06:00)
[2019-03-14] MEDS ORDERED: Zolpidem 5mg tab ORAL PRN ×2 (05:00→21:00)
[2019-03-14] MEDS ORDERED: Acetaminophen 500mg (ES) tab ORAL PRN (05:00)
--- NOTE | 2019-03-14 05:35 | NUR ---
TRANSFER TO FLOOR: Patient transferred to [facility], per Dr. Bernal. Report given to JUNIOR Lester. Pt transferred to unit without any incident. Belongings list checked. Orders transferred.
--- NOTE | 2019-03-14 05:50 | NUR ---
NURSE NOTES: Pt report received from JONH BARRIENTOS RN TELE. pt is alert and oriented times 0 and not able to follow commands. pt responds to sternal rub. Pt has a campus monitor place and showing SR at this time, no other signs symptoms of acute Cardiac distress at this moment. pt has a canseco in place, draining to gravity. pt is currently on a BiPAP with reported settings of 15/8, FiO2 100% and is satting at 95%. all safety precautions are active bed locked and low, bed armed, bed rails up times 3. will proceed with plan of care.
--- NOTE | 2019-03-14 05:51 | NUR ---
Patient transferred to Telemetry unit 03:50- ALS
[2019-03-14] MEDS ORDERED: Piperacillin/Tazobactam 3.375 GM in NS 110 ML IVPB SCH (06:00)
[2019-03-14] MEDS: Piperacillin/Tazobactam 3.375 GM in NS 110 ML IVPB SCH ×2 (06:28→17:34)
--- NOTE | 2019-03-14 07:00 | NUR ---
RESPIRATORY NOTES: Received patient on BIPAP 15/8 PS +7 BUR 12 Fio2 100%. Patient currently on facial mask with take in place; no redness or skin breakdown noted. Breath sounds reveal bilateral diminished. Patient is obtundent and retracted. BIPAP plugged into red outlet. Alarms are on and audible. Will continue to monitor thought the day.
--- NOTE | 2019-03-14 07:20 | NUR ---
HAND-OFF: Report given to Estee LANG.
--- NOTE | 2019-03-14 07:30 | NUR ---
NURSE NOTES: Report received from Trevon Rivero RN.Pt is a new admission from Telemetry but transferred to [facility],lethargic,nonverbal,in no resp distress,on Bipap 15/8,Fio2 100%,BUR 12/min,no signs of pain or discomfort SR on the monitor,GTF Jevity 1.2 at 50 ml/hr,no residual noted,Bryant cath draining yellow urine,IV site to RW intact with IVF NS at 100 ml/hr,pt with pressure injury to RT/LT Hip,and sacral,and RT foot DTI,skin warm and dry,SR up x2,HOB elevated,bed lock in lowest position,will continue with plans of care.
[2019-03-14] MEDS: Docusate 100mg cap ORAL SCH ×2 (08:56→17:35)
[2019-03-14] MEDS: OLANZapine 2.5mg tab ORAL SCH ×3 (08:57→17:35)
[2019-03-14] MEDS: Heparin 5000 units/ml inj SUBQ SCH ×2 (08:58→20:39)
[2019-03-14] MEDS ORDERED: Heparin 5000 units/ml inj SUBQ SCH (09:00)
[2019-03-14] MEDS ORDERED: Bisacodyl EC 5mg tab ORAL SCH ×2 (09:00)
[2019-03-14] MEDS ORDERED: Multivitamin w/Minerals tab ORAL SCH ×2 (09:00)
[2019-03-14] MEDS ORDERED: OLANZapine 2.5mg tab ORAL SCH (09:00)
[2019-03-14] MEDS ORDERED: Brimonidine 0.2% Opth Sol BOTH EYES SCH (09:00)
[2019-03-14] MEDS ORDERED: Ascorbic Acid 500mg tab ORAL SCH ×2 (09:00)
[2019-03-14] MEDS ORDERED: Docusate 100mg cap ORAL SCH (09:00)
[2019-03-14] MEDS ORDERED: Vancomycin 750mg/NS 275ml IVPB ONE ×2 (10:00)
[2019-03-14] MEDS ORDERED: Vancomycin 750 MG in NS 275 ML IVPB ONE (10:00)
--- NOTE | 2019-03-14 10:15 | History and Physical Report ---
DATE OF ADMISSION: 03/14/2019 REASON FOR ADMISSION: Respiratory failure, renal failure. HISTORY OF PRESENT ILLNESS: This is a 79-year-old female who recently has been fairly stable at the half-way and has had prior episodes of sepsis. The patient has recently discharged for urosepsis and has chronic encephalopathy. The patient noted to have high fevers and appeared to be acutely ill and tachycardic. The patient was transferred emergently to [facility]. The patient's chart reviewed. The patient noted to have leukocytosis as well as acute on chronic renal failure. The patient has elevated troponin as well. Blood gases obtained. The patient was placed on BiPAP and moved to [facility]. Care discussed, orders reviewed, and IV antibiotics started. The patient is unable to give much in the way of history today. Events appeared to be fairly acute, overall the patient had been fairly stable in the nursing facility. For some time, she is G-tube fed. She does have chronic aspiration. ER notes reviewed. Nursing notes reviewed. PAST MEDICAL HISTORY: Notable for aspiration, renal stones, renal failure, hypertension, G-tube, psychiatric history, psychosis, prior history of UTI, chronic encephalopathy, prior pneumonia, and hypertension. MEDICATIONS: Reviewed. ALLERGIES: Reviewed. SOCIAL HISTORY: The patient is a half-way patient, bedbound, nonsmoker, and nondrinker. REVIEW OF SYSTEMS: Unobtainable due to the patient's present state. PHYSICAL EXAMINATION: GENERAL: Chronically ill-appearing female. The patient is currently on BiPAP. VITAL SIGNS: Blood pressure 105/53, pulse 73, respirations 18, saturations 92% on 5 liters, temperature on arrival 104.4. HEENT: Negative. Pupils are sluggish. Oropharynx dry. NECK: Supple. LUNGS: With moderate breath sounds. Scattered rhonchi. CARDIAC: Currently regular rate and rhythm without murmurs, rubs, or gallops. ABDOMEN: Soft, nontender. G-tube in place. EXTREMITIES: Noted contractures. No cyanosis or clubbing. No edema. LABORATORY DATA: Reviewed. White cell count noted at 23.2, hematocrit 43, platelets 168. Chemistries noted, sodium 149, BUN 90, creatinine 2. Liver enzymes, elevated troponin 0.157. Albumin is 2.4. Arterial blood gases 7.38/36/418. X-ray with mild interstitial prominence, possibly early pneumonia. IMPRESSION: 1. Respiratory failure, acute. 2. Hypoxemia, mild. 3. Sepsis likely leukocytosis. 4. Acute on chronic renal failure. 5. Severe protein-calorie malnutrition. 6. UTI likely. RECOMMENDATION: ID evaluation, IV hydration, IV antibiotic. Monitor x-ray. BiPAP as needed. Follow up arterial blood gases. Follow up exam. Follow up laboratories. Follow up for further change and interventions. Resume half-way medications, G-tube feedings, aspiration precautions, DVT prophylaxis, close followup and recommendations, and hope to stabilize and discharge the patient back to snf facility. Ac Bernal M.D. DR: KALPANA JOB#: [id number] CC: LENCHO
[2019-03-14] MEDS ORDERED: Vancomycin 1gm/D5W 275ml IVPB ONE ×2 (11:00)
--- NOTE | 2019-03-14 11:00 | NUR ---
NURSE NOTES: Pt turned and repositioned , noted with very contracted lower extremities,
[2019-03-14] MEDS: Brimonidine 0.2% Opth Sol BOTH EYES SCH ×3 (11:25→17:34)
--- NOTE | 2019-03-14 12:15 | Consultation ---
DATE OF CONSULTATION: 03/14/2019 CONSULTING PHYSICIAN: Harsh Elmore M.D. REFERRING PHYSICIAN: Ac Bernal M.D. REASON FOR CONSULTATION: 1. Acute kidney injury. 2. Volume depletion. 3. Dehydration HISTORY OF PRESENT ILLNESS: The patient is a 79-year-old female, who is a detention resident. She is severely debilitated at baseline with psychiatric history and multiple episodes of previous sepsis. She had just been discharged from the hospital with an ESBL E. coli infection. She [facility] again from detention facility due to acute encephalopathy and being febrile. Upon presentation, the patient noted to have an elevated creatinine of 2 with a BUN of 90, serum sodium of 149. Prior to this, her renal function had been normal. ALLERGIES: Morphine. PAST SURGICAL HISTORY: Noncontributory. SOCIAL HISTORY: No tobacco, alcohol, or illicit drug use. FAMILY HISTORY: Positive for hypertension. PAST MEDICAL HISTORY: 1. Psychiatric disorder. 2. Severe debilitation. 3. Anemia of chronic kidney disease. 4. Iron deficiency. 5. Hypertension. REVIEW OF SYSTEMS: Cannot obtain as this patient is on BiPAP and nonverbal. LABORATORY DATA: Laboratories dated March 14, 2019, sodium 149, chloride 112, creatinine 2, BUN 90, calcium 9.6. Lactic acid 2.8. Hemoglobin 13.3, white cell count 23.2, and platelet count 168. Positive for UTI. PHYSICAL EXAMINATION: VITAL SIGNS: Blood pressure 118/49, respiratory rate 36, pulse 101, temperature 104.4, and 96% oxygen saturation on BiPAP. GENERAL: The patient is somnolent, but arousable, nonverbal. HEENT: Extraocular muscles intact. No lymphadenopathy noted. Oropharyngeal mucosa is clear and dry. CARDIOVASCULAR: S1, S2. No rubs or gallops. PULMONARY: upper rhonchi, fair air movement in all lung don. ABDOMEN: Nondistended, nontender. Good bowel sounds. EXTREMITIES: No edema noted. ASSESSMENT AND PLAN: 1. Acute kidney injury secondary from component of prerenal azotemia from volume depletion along with inflammatory cytokines from underlying sepsis due to UTI. At this time, agree with aggressive hydration and IV antibiotics. We will continue to monitor. Avoid any nephrotoxins. Renal function should improve with treatment of underlying UTI and IV fluids. 2. Urosepsis. Elevated white count with positive UTI. Continue IV antibiotics and IV hydration. 3. Hypertension. Avoid any ADITYA inhibitors or ARBs for the time being. Continue with Norvasc. 4. Dehydration/hypernatremia. Approximately 4 liters of free water intravascularly depleted. The patient currently on IV fluids. We will adjust as deemed appropriate. Let me take this opportunity to thank Dr. Bernal. Harshkody Elmore MD DR: SARITHA JOB#: [id number] CC: LENCHO
[2019-03-14] MEDS ORDERED: Tubing IV Secondary IV ONE (13:30)
[2019-03-14] MEDS ORDERED: NS 275ml ONE (13:30)
--- NOTE | 2019-03-14 16:00 | NUR ---
NURSE NOTES: Pt getting more alert ,reaching out for the Bipap mask on and off trying to remove it.Repositioned to sides.
--- NOTE | 2019-03-14 19:02 | NUR ---
RESPIRATORY NOTE: PT RECEIVED STABLE ON BIPAP WITH CURRENT RESPIRATORY SETTINGS: 15/8 RATE OF 12, 50%. ALARMS ARE ON AND AUDIBLE. PT IS CURRENTLY ON A FACIAL MASK. NO SIGN OF SKIN BREAKDOWN OR REDNESS NOTED AT THIS TIME. NO S/S OF RESPIRATORY DISTRESS IS NOTED A THIS TIME. WILL CONTINUE TO MONITOR.
--- NOTE | 2019-03-14 19:20 | NUR ---
NURSE NOTES: Report received from JUNIOR Fontanez. Observed pt lying in the bed. SR with monitor car operator. ON Bipap 22/04, 50%. Gtube intact and running Jevity 1.2 at 50cc/hr. F/C intact and draining well. IV on R W 18G, running NS 100cc/hr. Bed in the lowest position. Side rails up x2. Call light within reach. Will continue to monitor.
--- NOTE | 2019-03-14 19:21 | NUR ---
:HAND-OFF: Report given to kim Laurent RN.
[2019-03-14] MEDS ORDERED: DOCUSATE S50 MG/5 ML GT (20:57)
[2019-03-14] MEDS ORDERED: Milk of Magnesia 30ml Ud ORAL SCH ×2 (21:00)
--- NOTE | 2019-03-14 22:00 | Consultation ---
DATE OF CONSULTATION: 03/14/2019 INTERNAL MEDICINE CONSULTATION CONSULTING PHYSICIAN: Clayton Scales M.D. REASON FOR CONSULTATION: General inpatient internal medicine consultation for multiple medical problems. HISTORY OF PRESENT ILLNESS: The patient is a 79-year-old female. She has a history of kidney stones, schizophrenia, obstructive uropathy, hypertension, recurrent urinary tract infections, encephalopathy, pneumonia, and renal failure. She was transferred here to the emergency room with complaints of shortness of breath and respiratory distress. The patient is a poor historian and is currently on Ventimask. She was unable provide any history. She was recently discharged from the hospital with an ESBL E. coli infection and has been convalescing in a [facility] facility. Because of shortness of breath, she was transferred to the emergency room. On evaluation in the ER, she does not have white count of 23,000 with sodium 149, creatinine 2 with a BUN of 90, lactic acid level of 3. She had x-ray evidence of pneumonia. Broad-spectrum IV antibiotics have been instituted and she is now admitted for further evaluation and care. In addition, she also had a troponin of 0.157. PAST MEDICAL HISTORY: As above. PAST SURGICAL HISTORY: Unknown. CURRENT MEDICATIONS: Reconciled and reviewed. ALLERGIES: Include morphine. FAMILY HISTORY: Noncontributory. SOCIAL HISTORY: There is no known history of tobacco, ethanol, or drugs. REVIEW OF SYSTEMS: From the patient is unobtainable as she is nonverbal. PHYSICAL EXAMINATION: VITAL SIGNS: Temperature 98.2, pulse 70, respirations 20, blood pressure 98/69. GENERAL: The patient is a chronic well-appearing female, in no apparent distress. Currently on a high-flow oxygen. NECK: Supple. Mucous membranes are dry. HEART: Regular rate and rhythm. LUNGS: Clear anteriorly. ABDOMEN: Soft, nontender, nondistended. EXTREMITIES: Without clubbing, cyanosis, or edema. LABORATORY DATA: Labs showed white count of 23,000, hemoglobin 13, normal coag. Sodium 149, BUN of 90, creatinine was 2. Lactic acid was 2.8. AST was 69, ALT is 99. CK of 84, troponin 0.157. Chest x-ray showed infiltrates. UA showed too numerous to count wbc's. ASSESSMENT: This is an unfortunate 79-year-old female admitted with complaints of respiratory failure secondary to pneumonia complicated by sepsis, urine infection, lactic acidosis, acute on chronic renal failure, elevated liver function tests, unclear etiology. RECOMMENDATIONS: 1. Continue high-flow oxygen and breathing treatments. 2. Follow up pending cultures. 3. We will trend troponins. 4. Check a swallow evaluation. 5. Aggressive fluid resuscitation. 6. Continue antipsychotics, but we will hold for sedation. 7. DVT, stress ulcer prophylaxis also be instituted. Clayton Scales M.D. DR: JIM JOB#: [id number] CC:
--- NOTE | 2019-03-14 23:13 | NUR ---
NURSE NOTES: Received patient from JUNIOR Galvan. patient is resting in bed, no s/sx of pain noted at this time. patient is currently on BiPAP 15, 50%. no s/sx of respiratory distress noted at this time. G-tube site is patent and intact, running feeding at prescribed rate. F/C patent and intact, draining well. IV site is patent and intact, running NS at prescribed rate. bed in lowest position and locked, siderails up X2, call light within reach. will continue to monitor.
--- NOTE | 2019-03-14 23:14 | NUR ---
HAND-OFF: Report given to JUNIOR Hart. No acute distress noted at this time. Pt sleeping in the bed, calm and comfortable. SR with security monitor noted.
[2019-03-15] VITALS: BP 110/66
[2019-03-15 04:00] VITALS: BP 97/51
--- NOTE | 2019-03-15 05:03 | NUR ---
RESPIRATORY NOTE: PT REMAINED STABLE ON CMV WITH CURRENT SETTINGS. ALARMS ARE ON AND AUDIBLE. BIPAP CIRCUIT AND FULL FACE MASK ARE SECURE AND OUT OF THE WAY. NO RESPIRATORY DISTRESS IS NOTED AT THIS TIME.
[2019-03-15 05:30] LABS: ANION GAP 10 mmol/L (5-15); BLOOD UREA NITROGEN 53 mg/dL (7-18); CARBON DIOXIDE 23 MMOL/L (21-32); CHLORIDE 120 MMOL/L (98-107); CREATININE 1.2 MG/DL (0.55-1.30); POTASSIUM 3.3 MMOL/L (3.5-5.1); SODIUM 153 MMOL/L (136-145)
[2019-03-15] MEDS: Piperacillin/Tazobactam 3.375 GM in NS 110 ML IVPB SCH (05:31)
--- NOTE | 2019-03-15 07:28 | NUR ---
HAND-OFF: Report given to JUNIOR Hernandez. patient is in stable condition.
--- NOTE | 2019-03-15 07:29 | NUR ---
NURSE NOTES: Received patient in bed. Asleep, easy to arouse. Unable to make needs known. On bipap, no respiratory distress. Bryant cath inplace. Contact isolation observed. Will continue plan of care.
[2019-03-15 07:56] LABS: HEMATOCRIT 30.2 % (37.0-47.0); HEMOGLOBIN 9.1 G/DL (12.0-16.0); MEAN CORPUSCULAR VOLUME 91 FL (80-99); PLATELET COUNT 92 K/UL (150-450); WHITE BLOOD COUNT 14.9 K/UL (4.8-10.8)
[2019-03-15 08:00] VITALS: BP 111/63
--- NOTE | 2019-03-15 08:00 | NUR ---
NURSE NOTES: No patient belonging noted at bedside. Patient on continuous GTF. Bryant cath inplace. Will continue plan of care.
--- NOTE | 2019-03-15 08:05 | Pulmonology Progress Note ---
Assessment/Plan Assessment/Plan IMPRESSION: 1. Respiratory failure, acute. 2. Hypoxemia, mild. 3. Sepsis likely with leukocytosis. 4. Acute on chronic renal failure. 5. Severe protein-calorie malnutrition. 6. UTI likely. 7. Hypernatremia 8. anemia, likely chronic disease 9. thrombocytopenia PLAN d/w nursing trial off BIPAP monitor ABG IV antibiotics IV fluids follow up lytes and recommend monitor for change stabilize dc back to snf when improved impression, plan, and exam edited and reviewed in detail care discussed with RN Subjective ROS Limited/Unobtainable: Yes Allergies: Coded Allergies: MORPHINE (Verified Allergy, Unknown, 07/18/09) Subjective has been on BIPAP on oxygen poorly responsive Objective Last 24 Hour Vital Signs Date Time Temp Pulse Resp B/P (MAP) Pulse Ox O2 Delivery O2 Flow Rate FiO2 03/15/19 07:03 74 20 100 Full Face 40 03/15/19 05:03 91 28 100 Full Face 40 03/15/19 04:00 98.2 74 30 97/51 (66) 100 03/15/19 04:00 Bi-pap 15.0 03/15/19 04:00 93 03/15/19 04:00 40 03/15/19 03:00 74 32 99 Full Face 40 03/15/19 01:09 45 03/15/19 01:06 73 28 99 Full Face 45 03/15/19 00:00 Bi-pap 15.0 03/15/19 00:00 50 03/15/19 00:00 98.6 71 20 110/66 (81) 100 03/14/19 23:23 71 03/14/19 22:52 72 22 100 Facial 50 03/14/19 21:00 71 24 100 Facial 50 03/14/19 20:00 69 03/14/19 20:00 98.2 70 20 98/69 (79) 100 03/14/19 20:00 Bi-pap 15.0 03/14/19 20:00 50 03/14/19 19:02 69 27 95 Facial 50 03/14/19 17:15 64 29 100 Facial 50 03/14/19 16:11 Bi-pap 15.0 03/14/19 16:05 15.0 50 03/14/19 16:00 67 03/14/19 15:56 97.9 65 20 118/51 (73) 100 03/14/19 14:58 69 22 100 Facial 50 03/14/19 12:55 66 20 100 Facial 50 03/14/19 12:00 15.0 50 03/14/19 12:00 97.9 66 18 105/48 (67) 100 03/14/19 12:00 Bi-pap 15.0 03/14/19 11:44 71 03/14/19 10:45 71 21 100 Facial 50 03/14/19 09:08 62 19 99 Facial 60 03/14/19 08:56 91 122/63 Intake and Output 03/14/19 03/15/19 19:00 07:00 Intake Total 2247.5 ml 1637.5 ml Output Total 675 ml 600 ml Balance 1572.5 ml 1037.5 ml Intake Free Water 300 ml 150 ml IV Total 1227.5 ml 927.5 ml Tube Feeding 600 ml 560 ml Other 120 ml Output Urine Total 675 ml 600 ml # Bowel Movements 2 Objective GENERAL: Chronically ill-appearing female. poorly responsive HEENT: Negative. Pupils are sluggish. Oropharynx dry. NECK: Supple. LUNGS: With moderate breath sounds. some rhonchi. no wheeze CARDIAC: Currently regular rate and rhythm without murmurs, rubs, or gallops. ABDOMEN: Soft, nontender. G-tube in place. no distention EXTREMITIES: Noted contractures. No cyanosis or clubbing. No edema. Microbiology Date/Time Source Procedure Growth Status 03/14/19 02:05 Blood Blood Culture - Preliminary NO GROWTH AFTER 24 HOURS Resulted 03/14/19 01:50 Blood Blood Culture - Preliminary NO GROWTH AFTER 24 HOURS Resulted 03/14/19 01:30 Rectum Received Laboratory Tests 03/14/19 08:30: Arterial Blood pH 7.418, Arterial Blood Partial Pressure CO2 36.7, Arterial Blood Partial Pressure O2 409.4H, Arterial Blood HCO3 23.2, Arterial Blood Oxygen Saturation 99.4, Arterial Blood Base Excess -1.0, Jonah Test N/a 03/15/19 04:50: Sodium Level 153H, Potassium Level 3.3L, Chloride Level 120H, Carbon Dioxide Level 23, Anion Gap 10, Blood Urea Nitrogen 53H, Creatinine 1.2, Estimat Glomerular Filtration Rate , Glucose Level 128H, Calcium Level 8.0L 03/15/19 07:44: White Blood Count 14.9H, Red Blood Count 3.30L, Hemoglobin 9.1#L, Hematocrit 30.2L, Mean Corpuscular Volume 91, Mean Corpuscular Hemoglobin 27.7, Mean Corpuscular Hemoglobin Concent 30.3L, Red Cell Distribution Width 17.0H, Platelet Count 92L, Mean Platelet Volume 9.7, Neutrophils (%) (Auto) , Lymphocytes (%) (Auto) , Monocytes (%) (Auto) , Eosinophils (%) (Auto) , Basophils (%) (Auto) , Neutrophils % (Manual) [Pending], Lymphocytes % (Manual) [Pending], Platelet Estimate [Pending], Platelet Morphology [Pending] Current Medications Medications (Trade) Dose Ordered Sig/Marcos Route PRN Reason Start Time Stop Time Status Last Admin Dose Admin Acetaminophen (Tylenol) 650 mg Q4HR PRN ORAL Mild Pain/Temp > 100.5 03/14/19 09:00 04/13/19 04:59 Al Hydroxide/Mg Hydroxide (Mylanta) 30 ml Q4HR PRN GT DYSPESIA 03/14/19 09:00 04/13/19 04:44 Albuterol Sulfate (Proventil) 2.5 mg Q4HRT PRN HHN Shortness of Breath 03/14/19 07:00 03/19/19 04:44 Amlodipine Besylate (Norvasc) 5 mg DAILY GT 03/14/19 09:00 04/13/19 08:59 03/14/19 08:56 Ascorbic Acid (Vitamin C) 500 mg DAILY ORAL 03/14/19 09:00 04/13/19 08:59 03/14/19 08:55 Bisacodyl (Dulcolax) 10 mg DAILY ORAL 03/14/19 09:00 04/13/19 08:59 03/14/19 08:56 Brimonidine Tartrate (Alphagan) 1 drop TID BOTH EYES 03/14/19 09:00 04/13/19 08:59 03/14/19 17:34 Docusate Sodium (Colace) 100 mg TWICE A DAY ORAL 03/14/19 09:00 04/13/19 08:59 03/14/19 17:35 Ferrous Sulfate (Feosol) 325 mg THREE TIMES A DAY ORAL 03/14/19 09:00 04/13/19 08:59 03/14/19 17:35 Folic Acid (Folate) 1 mg DAILY ORAL 03/14/19 09:00 04/13/19 08:59 03/14/19 08:50 Heparin Sodium (Porcine) (Heparin 5000 units/ml) 5,000 units EVERY 12 HOURS SUBQ 03/14/19 09:00 04/13/19 08:59 03/14/19 20:39 Lorazepam (Ativan) 1 mg Q4HR PRN ORAL For Anxiety 03/14/19 09:00 03/21/19 04:59 Magnesium Hydroxide (Mom) 5 ml EVERY 6 HOURS PRN GT Constipation 03/14/19 06:00 04/13/19 04:59 Magnesium Hydroxide (Mom) 30 ml BEDTIME ORAL 03/14/19 21:00 04/13/19 20:59 03/14/19 20:37 Multivitamins Therapeutic (Therapeutic Multivitamin) 1 ea DAILY ORAL 03/14/19 09:00 04/13/19 08:59 03/14/19 09:53 Olanzapine (ZyPREXA) 5 mg TID ORAL 03/14/19 09:00 04/13/19 08:59 03/14/19 17:35 Pantoprazole (Protonix) 40 mg DAILY ORAL 03/14/19 09:00 04/13/19 08:59 03/14/19 08:51 Piperacillin Sod/ Tazobactam Sod 3.375 gm/Sodium Chloride 110 ml @ 27.5 mls/hr Q12H IVPB 03/14/19 06:00 03/21/19 05:59 03/15/19 05:31 Sodium Chloride 1,000 ml @ 100 mls/hr Q10H IV 03/14/19 05:45 04/13/19 04:44 03/15/19 02:00 Vancomycin HCl (Vanco rx to dose) 1 ea DAILY PRN MISC Per rx protocol 03/14/19 09:00 04/13/19 04:44 Zolpidem Tartrate (Ambien) 5 mg BEDTIME PRN ORAL Insomnia 03/14/19 21:00 03/21/19 04:59 Ac Bernal MD Mar 15, 2019 08:05
--- NOTE | 2019-03-15 08:08 | Nephrology Progress Note ---
Assessment/Plan Assessment/Plan: A/P 1) HELENE- due to volume depletion/prerenal - much improved - Cr down to 1.2 - continue IV Abx and fluids 2) Hypernatremia- approx 4 L free water deficit - IVFs changed to D5W with KCL 3) Hypokalemia- added KCL to IVFs 4) Sepsis- defer Abx per PCP 5) Resp FL- on facial BiPAP Subjective Date patient seen: Mar 15, 2019 Time patient seen: 08:05 ROS Limited/Unobtainable: Yes Allergies: Coded Allergies: MORPHINE (Verified Allergy, Unknown, 07/18/09) Subjective Patient on facial BiPAP. Seems more awake this am Objective Last 24 Hour Vital Signs Date Time Temp Pulse Resp B/P (MAP) Pulse Ox O2 Delivery O2 Flow Rate FiO2 03/15/19 07:03 74 20 100 Full Face 40 03/15/19 05:03 91 28 100 Full Face 40 03/15/19 04:00 98.2 74 30 97/51 (66) 100 03/15/19 04:00 Bi-pap 15.0 03/15/19 04:00 93 03/15/19 04:00 40 03/15/19 03:00 74 32 99 Full Face 40 03/15/19 01:09 45 03/15/19 01:06 73 28 99 Full Face 45 03/15/19 00:00 Bi-pap 15.0 03/15/19 00:00 50 03/15/19 00:00 98.6 71 20 110/66 (81) 100 03/14/19 23:23 71 03/14/19 22:52 72 22 100 Facial 50 03/14/19 21:00 71 24 100 Facial 50 03/14/19 20:00 69 03/14/19 20:00 98.2 70 20 98/69 (79) 100 03/14/19 20:00 Bi-pap 15.0 03/14/19 20:00 50 03/14/19 19:02 69 27 95 Facial 50 03/14/19 17:15 64 29 100 Facial 50 03/14/19 16:11 Bi-pap 15.0 03/14/19 16:05 15.0 50 03/14/19 16:00 67 03/14/19 15:56 97.9 65 20 118/51 (73) 100 03/14/19 14:58 69 22 100 Facial 50 03/14/19 12:55 66 20 100 Facial 50 03/14/19 12:00 15.0 50 03/14/19 12:00 97.9 66 18 105/48 (67) 100 03/14/19 12:00 Bi-pap 15.0 03/14/19 11:44 71 03/14/19 10:45 71 21 100 Facial 50 03/14/19 09:08 62 19 99 Facial 60 03/14/19 08:56 91 122/63 Intake and Output 03/14/19 03/15/19 19:00 07:00 Intake Total 2247.5 ml 1637.5 ml Output Total 675 ml 600 ml Balance 1572.5 ml 1037.5 ml Intake Free Water 300 ml 150 ml IV Total 1227.5 ml 927.5 ml Tube Feeding 600 ml 560 ml Other 120 ml Output Urine Total 675 ml 600 ml # Bowel Movements 2 Laboratory Tests 03/14/19 08:30: Arterial Blood pH 7.418, Arterial Blood Partial Pressure CO2 36.7, Arterial Blood Partial Pressure O2 409.4H, Arterial Blood HCO3 23.2, Arterial Blood Oxygen Saturation 99.4, Arterial Blood Base Excess -1.0, Jonah Test N/a 03/15/19 04:50: Sodium Level 153H, Potassium Level 3.3L, Chloride Level 120H, Carbon Dioxide Level 23, Anion Gap 10, Blood Urea Nitrogen 53H, Creatinine 1.2, Estimat Glomerular Filtration Rate , Glucose Level 128H, Calcium Level 8.0L 03/15/19 07:44: White Blood Count 14.9H, Red Blood Count 3.30L, Hemoglobin 9.1#L, Hematocrit 30.2L, Mean Corpuscular Volume 91, Mean Corpuscular Hemoglobin 27.7, Mean Corpuscular Hemoglobin Concent 30.3L, Red Cell Distribution Width 17.0H, Platelet Count 92L, Mean Platelet Volume 9.7, Neutrophils (%) (Auto) , Lymphocytes (%) (Auto) , Monocytes (%) (Auto) , Eosinophils (%) (Auto) , Basophils (%) (Auto) , Neutrophils % (Manual) [Pending], Lymphocytes % (Manual) [Pending], Platelet Estimate [Pending], Platelet Morphology [Pending] Height (Feet): 5 Weight (Pounds): 100 General Appearance: no apparent distress, alert EENT: normal ENT inspection Neck: normal alignment, supple Cardiovascular: normal rate, regular rhythm Respiratory/Chest: rhonchi - bilaterally Abdomen: non tender, soft Edema: no edema noted Arm (L), no edema noted Arm (R), no edema noted Leg (L), no edema noted Leg (R), no edema noted Pedal (L), no edema noted Pedal (R), no edema noted Generalized Harsh Elmore MD Mar 15, 2019 08:08
[2019-03-15] MEDS ORDERED: Bisacodyl EC 5mg tab ORAL SCH (09:00)
[2019-03-15] MEDS: Heparin 5000 units/ml inj SUBQ SCH ×2 (09:00→20:45)
[2019-03-15] MEDS: Brimonidine 0.2% Opth Sol BOTH EYES SCH ×3 (09:11→19:32)
[2019-03-15] MEDS: Docusate 100mg/10ml Liq GT SCH ×2 (09:11→20:47)
[2019-03-15] MEDS: Pantoprazole Inj IVP SCH (09:11)
[2019-03-15] MEDS: Ascorbic Acid 500mg tab GT SCH (09:11)
[2019-03-15] MEDS: Multivitamins W/Minerals 15 ML UDC GT SCH (09:12)
--- NOTE | 2019-03-15 09:25 | NUR ---
NURSE NOTES: Rt changed patient's bipap to venturi mask with FiO2 of 40%. No respiratory distress noted. Oxygen saturation noted at 98%.
--- NOTE | 2019-03-15 09:36 | NUR ---
EMB[employer]ING [employer] 79 Y/O FEMALE BIBA FROM [facility] TO [facility] [place] CC; DYSPNEA/RESPIRATORY DISTRESS SI:SEPSIS . HCAP . ARF VS: BP 118/49, P 101, T 104.4, RR 36, SpO2 96 on NR-MASK 15.0 WBC 23.2, Na 149, BUN 90, CR 2.0, AST 69, ALT 99, TROP. I 0.157 CXR: Mild interstitial edema. IS:MEROPENEM 55ml IVPB TYLENOL 650mg NS x1L IV LEVOFLOXACIN 100ml IVPB ADMITTED TO [facility] DCP: RETURN TO [facility]
[2019-03-15] MEDS: D5W w/KCl 20mEq 1,000 ML IV SCH (09:44)
--- NOTE | 2019-03-15 11:01 | General Progress Note ---
Assessment/Plan Problem List: (1) Schizophrenia ICD Codes: F20.9 - Schizophrenia, unspecified SNOMED: 84625958 (2) Renal failure ICD Codes: N19 - Unspecified kidney failure SNOMED: 29444533 (3) HTN (hypertension) ICD Codes: I10 - Essential (primary) hypertension SNOMED: 27685585 (4) Sepsis ICD Codes: A41.9 - Sepsis, unspecified organism SNOMED: 02160325 Qualifiers: Qualified Codes: A41.9 - Sepsis, unspecified organism (5) ESBL (extended spectrum beta-lactamase) producing bacteria infection ICD Codes: A49.9 - Bacterial infection, unspecified; Z16.12 - Extended spectrum beta lactamase (ESBL) resistance SNOMED: 359009176, 657200400 (6) Acute metabolic encephalopathy ICD Codes: G93.41 - Metabolic encephalopathy SNOMED: 40112003, 310721257 (7) Altered mental status ICD Codes: R41.82 - Altered mental status, unspecified SNOMED: 370937763 (8) HCAP (healthcare-associated pneumonia) ICD Codes: J18.9 - Pneumonia, unspecified organism SNOMED: 256817740, 940451958 Status: stable, progressing Assessment/Plan: resp rx bipap hypotonic fluids iv abx follow up cultures monitor cxr Subjective ROS Limited/Unobtainable: No Constitutional: Reports: malaise, weakness HEENT: Reports: no symptoms Cardiovascular: Reports: no symptoms Respiratory: Reports: shortness of breath Gastrointestinal/Abdominal: Reports: no symptoms Genitourinary: Reports: no symptoms Neurologic/Psychiatric: Reports: emotional problems, pre-existing deficit Endocrine: Reports: no symptoms Hematologic/Lymphatic: Reports: no symptoms Allergies: Coded Allergies: MORPHINE (Verified Allergy, Unknown, 07/18/09) All Systems: reviewed and negative except above Subjective no events. remains on bipap. poorly responsive. no fever or chills. Objective Last 24 Hour Vital Signs Date Time Temp Pulse Resp B/P (MAP) Pulse Ox O2 Delivery O2 Flow Rate FiO2 03/15/19 09:25 8.0 03/15/19 09:25 Venturi Mask 8.0 03/15/19 09:24 40 03/15/19 09:12 63 111/63 03/15/19 08:54 63 24 96 Full Face 40 03/15/19 08:00 97.5 75 28 111/63 (79) 99 03/15/19 08:00 40 03/15/19 08:00 Bi-pap 15.0 03/15/19 07:42 75 03/15/19 07:03 74 20 100 Full Face 40 03/15/19 05:03 91 28 100 Full Face 40 03/15/19 04:00 98.2 74 30 97/51 (66) 100 03/15/19 04:00 Bi-pap 15.0 03/15/19 04:00 93 03/15/19 04:00 40 03/15/19 03:00 74 32 99 Full Face 40 03/15/19 01:09 45 03/15/19 01:06 73 28 99 Full Face 45 03/15/19 00:00 Bi-pap 15.0 03/15/19 00:00 50 03/15/19 00:00 98.6 71 20 110/66 (81) 100 03/14/19 23:23 71 03/14/19 22:52 72 22 100 Facial 50 03/14/19 21:00 71 24 100 Facial 50 03/14/19 20:00 69 03/14/19 20:00 98.2 70 20 98/69 (79) 100 03/14/19 20:00 Bi-pap 15.0 03/14/19 20:00 50 03/14/19 19:02 69 27 95 Facial 50 03/14/19 17:15 64 29 100 Facial 50 03/14/19 16:11 Bi-pap 15.0 03/14/19 16:05 15.0 50 03/14/19 16:00 67 03/14/19 15:56 97.9 65 20 118/51 (73) 100 03/14/19 14:58 69 22 100 Facial 50 03/14/19 12:55 66 20 100 Facial 50 03/14/19 12:00 15.0 50 03/14/19 12:00 97.9 66 18 105/48 (67) 100 03/14/19 12:00 Bi-pap 15.0 03/14/19 11:44 71 Intake and Output 03/14/19 03/15/19 19:00 07:00 Intake Total 2247.5 ml 1692.5 ml Output Total 675 ml 600 ml Balance 1572.5 ml 1092.5 ml Intake Free Water 300 ml 150 ml IV Total 1227.5 ml 927.5 ml Tube Feeding 600 ml 615 ml Other 120 ml Output Urine Total 675 ml 600 ml # Bowel Movements 2 Laboratory Tests 03/15/19 04:50: Sodium Level 153H, Potassium Level 3.3L, Chloride Level 120H, Carbon Dioxide Level 23, Anion Gap 10, Blood Urea Nitrogen 53H, Creatinine 1.2, Estimat Glomerular Filtration Rate , Glucose Level 128H, Calcium Level 8.0L 03/15/19 07:44: White Blood Count 14.9H, Red Blood Count 3.30L, Hemoglobin 9.1#L, Hematocrit 30.2L, Mean Corpuscular Volume 91, Mean Corpuscular Hemoglobin 27.7, Mean Corpuscular Hemoglobin Concent 30.3L, Red Cell Distribution Width 17.0H, Platelet Count 92L, Mean Platelet Volume 9.7, Neutrophils (%) (Auto) , Lymphocytes (%) (Auto) , Monocytes (%) (Auto) , Eosinophils (%) (Auto) , Basophils (%) (Auto) , Differential Total Cells Counted 100, Neutrophils % ( Manual) 77H, Lymphocytes % (Manual) 18L, Monocytes % (Manual) 5, Eosinophils % ( Manual) 0, Basophils % (Manual) 0, Band Neutrophils 0, Platelet Estimate DecreasedL, Platelet Morphology Normal, Polychromasia 1+, Anisocytosis 1+ Height (Feet): 5 Weight (Pounds): 100 General Appearance: WD/WN, lethargic, confused Cardiovascular: regular rhythm Respiratory/Chest: lungs clear, normal breath sounds Abdomen: normal bowel sounds, non tender, soft, no organomegaly Edema: no edema noted Arm (L), no edema noted Arm (R), no edema noted Leg (L), no edema noted Leg (R), no edema noted Pedal (L), no edema noted Pedal (R), no edema noted Generalized Clayton Scales MD Mar 15, 2019 11:00
[2019-03-15 12:00] VITALS: BP 118/60
--- NOTE | 2019-03-15 13:28 | NUR ---
RD ASSESSMENT & RECOMMENDATIONS SEE CARE ACTIVITY FOR COMPLETE ASSESSMENT DAILY ESTIMATED NEEDS: Needs based on Underweight, sepsis/ 43.9kg 30-35 kcals/kg 0749-6526 total kcals 1.25-2 g protein/kg 55-88 g total protein 25-30 mL/kg 2874-9548 total fluid mLs NUTRITION DIAGNOSIS: * Swallowing difficulty R/T dysphagia as evidenced by pt is PEG dep. * Increased kcal/prot needs R/T underweight status as evidenced by low BMI per guidelines, noted w/ moderate to severe generalized wasting. ENTERAL NUTRITION RECOMMENDATIONS: Jevity 1.2 @ 55ml/hr x 24 hrs to provide 1320ml, 1584kcal, 73g prot, 1065ml free H2O * Rec to maintain current goal rate * HOB over 30 degrees/ water flush per MD ADDITIONAL RECOMMENDATIONS: * Calibrated bedscale wt, weekly wt monitoring * DC NS IVF and consider D5 IVF or increase water flushes -> Na trending up * Monitor lytes, replete as needed * Pending WC eval: per RN redness @BL hip + R foot KAYLEEN BID, f/up w/ WC eval
[2019-03-15] MEDS: Ferrous Sulfate 300 MG/5 ML UDC GT SCH ×2 (15:29→20:48)
[2019-03-15] MEDS: Meropenem 1 GM in NS 55 ML IVPB SCH ×2 (15:29→20:48)
--- NOTE | 2019-03-15 15:33 | NUR ---
NURSE NOTES:WOUND CARE NOTES:Pt presented on admission with multiple pressure injuries and contractures. Non-blanchable erythema noted to bridge of nostril. Raised, indurated and erythematous are noted to R scapula. Periwound without erythema or induration.(L)2.5cm x (W)3cm. R trochanter maroon in colour with an area of fluctuance proximally within base of wound. Periwound without erythema or induration.(L)12.5cm x (W)7cm. L trochanter purple centrally with surrounding maroon discoloration and is indurated with marginal erythema. Periwound without induration of fluctuance.(L)5.5cm x (W)6cm. Scattered areas of non-blanchable erythema without induration/fluctuance noted to sacrum, R and L clefts of buttocks. Stable dry eschar noted distally ,plantar R foot. Periwound without erythema or fluctuance.(L)1.5cm x (W)2cm. R and L heels are pink and blanchable. Tx.Plan: Apply Cavilon Skin Barrier to R scapula.Cover with Optifoam drsg. Change every 7 days and prn. Apply Cavilon Skin Barrier to R and L trochanters. Cover each site with Optifoam drsgs. Change every 7 days and prn. Apply Moisture Barrier Paste to sacrum .Cover sacrum with Optifoam drsg. Change every 3 days and prn. Apply Cavilon Skin Barrier to Plantar R foot. Cover with Optifoam drsg. Change every 7 days and prn. Apply Cavilon Skin Barrier to both heels. Cover each heel with Optifoam drsg. Change every 7 days and prn. APM/LEONARD mattress. Reposition at least every 2hours or as tolerated. Place pillow between knees. Off-load heels with pillow.
--- NOTE | 2019-03-15 15:56 | Consultation ---
History of Present Illness General Date patient seen: Mar 15, 2019 Chief Complaint: Dyspnea/Respdistress Present Illness HPI 79-year-old female with history of kidney stones, schizophrenia, obstructive uropathy, hypertension, recurrent urinary tract infections, encephalopathy, pneumonia, and renal failure who presented with SOB and respiratory insufficiency. Admitted for medical care and management. Has been on and off BiPAP. Slowly improving. Patient jail resident with multiple medical comorbidities and is fairly bedbound. on admission noted to have multiple wounds requiring care. Surgery called to evaluate and assist with care. patient seen, chart reviewed, patient examined. leukocytosis, anemia, abnormal labs. Allergies: Coded Allergies: MORPHINE (Verified Allergy, Unknown, 07/18/09) Medication History Scheduled Docusate Sodium (Docusate Sodium), 10 ML GT BID, (Reported) Meropenem-0.9% Sodium Chloride (Meropenem-0.9% NaCl 500 mg/50), 500 MG IV Q8HR, (Reported) Olanzapine* (Zyprexa*), 5 MG GT TID, (Reported) Scheduled PRN Bisacodyl* (Dulcolax*), 10 MG GT DAILY PRN for Constipation, (Reported) Lorazepam* (Ativan*), 1 MG GT Q4HR PRN for For Anxiety, (Reported) Zolpidem Tartrate* (Ambien*), 5 MG GT BEDTIME PRN for Insomnia, (Reported) Discontinued Medications Acetaminophen 160MG/5ML* (Acetaminophen*), 650 MG GT EVERY 4 HOURS PRN for Fever /Headache/Mild Pain, (Reported) Discontinued Reason: Therapy completed Acetaminophen* (Tylenol Extra Strength*), 650 MG ORAL Q4HR PRN for Mild Pain/ Temp > 100.5, (Reported) Discontinued Reason: Therapy completed Amlodipine Besylate (Norvasc), 5 MG GT DAILY, (Reported) Discontinued Reason: Therapy completed Ascorbic Acid* (Vitamin C*), 500 MG ORAL DAILY, (Reported) Discontinued Reason: Therapy completed Baclofen (Baclofen), 5 MG GT QID, (Reported) Discontinued Reason: Therapy completed Brimonidine Tartrate* (Alphagan*), 1 DROP BOTH EYES TID, (Reported) Discontinued Reason: Therapy completed Calcium Carbonate (Calcium Carbonate), 500 MG GT, (Reported) Discontinued Reason: Therapy completed Cranberry Fruit Concentrate (Cranberry), 450 MG PO BID, (Reported) Discontinued Reason: Therapy completed Docusate Sodium* (Docusate Sodium*), 100 MG ORAL TWICE A DAY, (Reported) Discontinued Reason: Prescription changed Epoetin Paul (Epogen), 10,000 UNIT SUBQ THREE TIMES A WEEK, (Reported) Discontinued Reason: Therapy completed Ferrous Sulfate* (Ferrous Sulfate*), 325 MG ORAL THREE TIMES A DAY, (Reported) Discontinued Reason: Therapy completed Folic Acid* (Folic Acid*), 1 MG ORAL DAILY, (Reported) Discontinued Reason: Therapy completed Magnesium Hydroxide (Milk of Magnesia), 2,400 MG GT EVERY 6 HOURS PRN for Constipation, (Reported) Discontinued Reason: Therapy completed Magnesium Hydroxide* (Milk Of Magnesia*), 30 ML ORAL BEDTIME, (Reported) Discontinued Reason: Therapy completed Multivitamin With Minerals (Multivitamins With Minerals*), 1 TAB ORAL DAILY, ( Reported) Discontinued Reason: Therapy completed Pantoprazole* (Protonix*), 40 MG ORAL DAILY, (Reported) Discontinued Reason: Therapy completed Patient History Limited by: age, medical condition History Provided By: Patient, Medical Record, PMD Healthcare decision maker no family member Resuscitation status Full Code Advanced Directive on File No Past Medical/Surgical History Past Medical/Surgical History: (1) Nephrolithiasis (2) Obstructive uropathy (3) Noncompliance (4) Urinary tract infection (5) Dehydration (6) Proteinuria (7) ARF (acute renal failure) (8) Renal failure (9) Schizophrenia (10) Sepsis (11) Altered mental status (12) HTN (hypertension) (13) ESBL (extended spectrum beta-lactamase) producing bacteria infection (14) HCAP (healthcare-associated pneumonia) (15) Acute metabolic encephalopathy Review of Systems All Other Systems: negative except mentioned in HPI Physical Exam General Appearance: no apparent distress Lines, tubes and drains: peripheral HEENT: mucous membranes moist Neck: normal inspection Respiratory/Chest: no respiratory distress, decreased breath sounds, other Cardiovascular/Chest: normal rate, regular rhythm Abdomen: soft, no organomegaly, no mass Extremities: normal inspection Skin Exam: warm/dry Neurologic: alert Last 24 Hour Vital Signs Date Time Temp Pulse Resp B/P (MAP) Pulse Ox O2 Delivery O2 Flow Rate FiO2 03/15/19 12:00 Venturi Mask 8.0 03/15/19 12:00 75 03/15/19 12:00 97.1 76 24 118/60 (79) 98 03/15/19 09:25 8.0 03/15/19 09:25 Venturi Mask 8.0 03/15/19 09:24 40 03/15/19 09:12 63 111/63 03/15/19 08:54 63 24 96 Full Face 40 03/15/19 08:00 97.5 75 28 111/63 (79) 99 03/15/19 08:00 40 03/15/19 08:00 Bi-pap 15.0 03/15/19 07:42 75 03/15/19 07:03 74 20 100 Full Face 40 03/15/19 05:03 91 28 100 Full Face 40 03/15/19 04:00 98.2 74 30 97/51 (66) 100 03/15/19 04:00 Bi-pap 15.0 03/15/19 04:00 93 03/15/19 04:00 40 03/15/19 03:00 74 32 99 Full Face 40 03/15/19 01:09 45 03/15/19 01:06 73 28 99 Full Face 45 03/15/19 00:00 Bi-pap 15.0 03/15/19 00:00 50 03/15/19 00:00 98.6 71 20 110/66 (81) 100 03/14/19 23:23 71 03/14/19 22:52 72 22 100 Facial 50 03/14/19 21:00 71 24 100 Facial 50 03/14/19 20:00 69 03/14/19 20:00 98.2 70 20 98/69 (79) 100 03/14/19 20:00 Bi-pap 15.0 03/14/19 20:00 50 03/14/19 19:02 69 27 95 Facial 50 03/14/19 17:15 64 29 100 Facial 50 03/14/19 16:11 Bi-pap 15.0 03/14/19 16:05 15.0 50 03/14/19 16:00 67 03/14/19 15:56 97.9 65 20 118/51 (73) 100 Intake and Output 03/14/19 03/15/19 19:00 07:00 Intake Total 2247.5 ml 1692.5 ml Output Total 675 ml 600 ml Balance 1572.5 ml 1092.5 ml Intake Free Water 300 ml 150 ml IV Total 1227.5 ml 927.5 ml Tube Feeding 600 ml 615 ml Other 120 ml Output Urine Total 675 ml 600 ml # Bowel Movements 2 Laboratory Tests Test 03/15/19 04:50 03/15/19 07:44 Sodium Level 153 MMOL/L (136-145) H Potassium Level 3.3 MMOL/L (3.5-5.1) L Chloride Level 120 MMOL/L (98-107) H Carbon Dioxide Level 23 MMOL/L (21-32) Anion Gap 10 mmol/L (5-15) Blood Urea Nitrogen 53 mg/dL (7-18) H Creatinine 1.2 MG/DL (0.55-1.30) Estimat Glomerular Filtration Rate mL/min (>60) Glucose Level 128 MG/DL (74-106) H Calcium Level 8.0 MG/DL (8.5-10.1) L White Blood Count 14.9 K/UL (4.8-10.8) H Red Blood Count 3.30 M/UL (4.20-5.40) L Hemoglobin 9.1 G/DL (12.0-16.0) #L Hematocrit 30.2 % (37.0-47.0) L Mean Corpuscular Volume 91 FL (80-99) Mean Corpuscular Hemoglobin 27.7 PG (27.0-31.0) Mean Corpuscular Hemoglobin Concent 30.3 G/DL (32.0-36.0) L Red Cell Distribution Width 17.0 % (11.6-14.8) H Platelet Count 92 K/UL (150-450) L Mean Platelet Volume 9.7 FL (6.5-10.1) Neutrophils (%) (Auto) % (45.0-75.0) Lymphocytes (%) (Auto) % (20.0-45.0) Monocytes (%) (Auto) % (1.0-10.0) Eosinophils (%) (Auto) % (0.0-3.0) Basophils (%) (Auto) % (0.0-2.0) Differential Total Cells Counted 100 Neutrophils % (Manual) 77 % (45-75) H Lymphocytes % (Manual) 18 % (20-45) L Monocytes % (Manual) 5 % (1-10) Eosinophils % (Manual) 0 % (0-3) Basophils % (Manual) 0 % (0-2) Band Neutrophils 0 % (0-8) Platelet Estimate Decreased L Platelet Morphology Normal Polychromasia 1+ Anisocytosis 1+ Height (Feet): 5 Weight (Pounds): 100 Medications Current Medications Medications (Trade) Dose Ordered Sig/Marcos Route PRN Reason Start Time Stop Time Status Last Admin Dose Admin Acetaminophen (Tylenol) 650 mg Q4HR PRN ORAL Mild Pain/Temp > 100.5 03/14/19 09:00 04/13/19 04:59 Al Hydroxide/Mg Hydroxide (Mylanta) 30 ml Q4HR PRN GT DYSPESIA 03/14/19 09:00 04/13/19 04:44 Albuterol Sulfate (Proventil) 2.5 mg Q4HRT PRN HHN Shortness of Breath 03/14/19 07:00 03/19/19 04:44 Amlodipine Besylate (Norvasc) 5 mg DAILY GT 03/14/19 09:00 04/13/19 08:59 03/15/19 09:12 Ascorbic Acid (Vitamin C) 500 mg DAILY GT 03/15/19 09:00 04/13/19 08:59 03/15/19 09:11 Bisacodyl (Dulcolax) 10 mg DAILYPRN PRN RECTAL Constipation 03/15/19 09:15 04/14/19 09:14 Brimonidine Tartrate (Alphagan) 1 drop TID BOTH EYES 03/14/19 09:00 04/13/19 08:59 03/15/19 12:42 Dextrose/ Electrolytes 1,000 ml @ 70 mls/hr [id number] IV 03/15/19 09:00 04/14/19 08:59 03/15/19 09:44 Docusate Sodium (Colace) 100 mg EVERY 12 HOURS GT 03/15/19 09:00 04/14/19 08:59 03/15/19 09:11 Ferrous Sulfate (Feosol) 300 mg EVERY 8 HOURS GT 03/15/19 14:00 04/14/19 13:59 03/15/19 15:29 Folic Acid (Folate) 1 mg DAILY GT 03/15/19 09:00 04/13/19 08:59 03/15/19 09:12 Heparin Sodium (Porcine) (Heparin 5000 units/ml) 5,000 units EVERY 12 HOURS SUBQ 03/14/19 09:00 04/13/19 08:59 03/14/19 20:39 Lorazepam (Ativan) 1 mg Q4HR PRN ORAL For Anxiety 03/14/19 09:00 03/21/19 04:59 Magnesium Hydroxide (Mom) 5 ml EVERY 6 HOURS PRN GT Constipation 03/14/19 06:00 04/13/19 04:59 Magnesium Hydroxide (Mom) 30 ml BEDTIME GT 03/15/19 21:00 04/13/19 20:59 Meropenem 1 gm/ Sodium Chloride 55 ml @ 110 mls/hr Q12HR IVPB 03/15/19 14:00 03/20/19 13:59 03/15/19 15:29 Multivitamins (Multivitamins W/ Minerals 15ml Liquid) 15 ml DAILY GT 03/15/19 09:00 04/14/19 08:59 03/15/19 09:12 Olanzapine (ZyPREXA) 5 mg TID GT 03/15/19 09:00 04/13/19 08:59 03/15/19 09:12 Pantoprazole (Protonix) 40 mg DAILY IVP 03/15/19 09:00 04/14/19 08:59 03/15/19 09:11 Zolpidem Tartrate (Ambien) 5 mg BEDTIME PRN ORAL Insomnia 03/14/19 21:00 03/21/19 04:59 Assessment/Plan Problem List: (1) Decubitus skin ulcer Assessment & Plan: Pt presented on admission with multiple pressure injuries and contractures. Non-blanchable erythema noted to bridge of nostril. Raised, indurated and erythematous are noted to R scapula. Periwound without erythema or induration.(L)2.5cm x (W)3cm. R trochanter maroon in colour with an area of fluctuance proximally within base of wound. Periwound without erythema or induration.(L)12.5cm x (W)7cm. L trochanter purple centrally with surrounding maroon discoloration and is indurated with marginal erythema. Periwound without induration of fluctuance.(L) 5.5cm x (W)6cm. Scattered areas of non-blanchable erythema without induration/fluctuance noted to sacrum, R and L clefts of buttocks. Stable dry eschar noted distally ,plantar R foot. Periwound without erythema or fluctuance.(L)1.5cm x (W)2cm. R and L heels are pink and blanchable. Tx.Plan: Apply Cavilon Skin Barrier to R scapula.Cover with Optifoam drsg. Change every 7 days and prn. Apply Cavilon Skin Barrier to R and L trochanters. Cover each site with Optifoam drsgs. Change every 7 days and prn. Apply Moisture Barrier Paste to sacrum .Cover sacrum with Optifoam drsg. Change every 3 days and prn. Apply Cavilon Skin Barrier to Plantar R foot. Cover with Optifoam drsg. Change every 7 days and prn. Apply Cavilon Skin Barrier to both heels. Cover each heel with Optifoam drsg. Change every 7 days and prn. APM/LEONARD mattress. Reposition at least every 2hours or as tolerated. Place pillow between knees. Off-load heels with pillow. ICD Codes: L89.90 - Pressure ulcer of unspecified site, unspecified stage SNOMED: 640316922 (2) Renal failure ICD Codes: N19 - Unspecified kidney failure SNOMED: 87916902 (3) Schizophrenia ICD Codes: F20.9 - Schizophrenia, unspecified SNOMED: 67615636 (4) Sepsis Assessment & Plan: Leukocytosis - trending down anemia - likely chronic as no signs of acute bleed ABG improved UTI on IV Abx cont abx wounds not actively infected ICD Codes: A41.9 - Sepsis, unspecified organism SNOMED: 17563951 Qualifiers: Qualified Codes: A41.9 - Sepsis, unspecified organism (5) Altered mental status ICD Codes: R41.82 - Altered mental status, unspecified SNOMED: 981083291 (6) HTN (hypertension) ICD Codes: I10 - Essential (primary) hypertension SNOMED: 76768051 (7) ESBL (extended spectrum beta-lactamase) producing bacteria infection ICD Codes: A49.9 - Bacterial infection, unspecified; Z16.12 - Extended spectrum beta lactamase (ESBL) resistance SNOMED: 129614906, 259336885 (8) HCAP (healthcare-associated pneumonia) ICD Codes: J18.9 - Pneumonia, unspecified organism SNOMED: 776617978, 713586727 (9) Acute metabolic encephalopathy Assessment & Plan: DAILY ESTIMATED NEEDS: Needs based on Underweight, sepsis/ 43.9kg 30-35 kcals/kg 9897-1039 total kcals 1.25-2 g protein/kg 55-88 g total protein 25-30 mL/kg 4399-0572 total fluid mLs NUTRITION DIAGNOSIS: * Swallowing difficulty R/T dysphagia as evidenced by pt is PEG dep. * Increased kcal/prot needs R/T underweight status as evidenced by low BMI per guidelines, noted w/ moderate to severe generalized wasting. ENTERAL NUTRITION RECOMMENDATIONS: Jevity 1.2 @ 55ml/hr x 24 hrs to provide 1320ml, 1584kcal, 73g prot, 1065ml free H2O * Rec to maintain current goal rate * HOB over 30 degrees/ water flush per MD ADDITIONAL RECOMMENDATIONS: * Calibrated bedscale wt, weekly wt monitoring * DC NS IVF and consider D5 IVF or increase water flushes -> Na trending up * Monitor lytes, replete as needed * Pending WC eval: per RN redness @BL hip + R foot KAYLEEN BID, f/up w/ WC eval ICD Codes: G93.41 - Metabolic encephalopathy SNOMED: 21153729, 379003324 (10) Urinary tract infection ICD Codes: N39.0 - Urinary tract infection, site not specified SNOMED: 64168821 (11) Nephrolithiasis ICD Codes: N20.0 - Calculus of kidney SNOMED: 74007612 (12) Obstructive uropathy ICD Codes: N13.9 - Obstructive and reflux uropathy, unspecified SNOMED: 7833893 (13) Noncompliance ICD Codes: Z91.19 - Patient's noncompliance with other medical treatment and regimen SNOMED: 3077241 (14) Dehydration ICD Codes: E86.0 - Dehydration SNOMED: 13743445, 606090090 (15) Proteinuria ICD Codes: R80.9 - Proteinuria, unspecified SNOMED: 65265458, 919728656 Qualifiers: Qualified Codes: R80.9 - Proteinuria, unspecified (16) ARF (acute renal failure) ICD Codes: N17.9 - Acute kidney failure, unspecified SNOMED: 49009328, 482791308 Qualifiers: Qualified Codes: N17.9 - Acute kidney failure, unspecified Alistair Nieves Mar 15, 2019 15:56
[2019-03-15 16:00] VITALS: BP 91/40
--- NOTE | 2019-03-15 16:15 | Consultation ---
DATE OF CONSULTATION: 03/15/2019 INFECTIOUS DISEASES CONSULTATION This consult is for coverage of Dr. Poole. CONSULTING PHYSICIAN: Jacobo Seals M.D. PRIMARY ATTENDING PHYSICIAN: Ac Bernal M.D. REASON FOR CONSULTATION: Sepsis and UTI. HISTORY OF PRESENT ILLNESS: This is a 79-year-old white female admitted admitted yesterday from an nursing facility with altered mental status. She had a temperature 104.4 in the ER, leukocytosis of 23.2. She is not a source of history. PAST MEDICAL HISTORY: Significant for chronic encephalopathy, status post G-tube placement, MRSA carrier, psychiatric problem. The patient had a recent admission to the hospital in February of 2019. At that time, she had UTI with ESBL E coli. She had renal ultrasound, right-sided hydronephrosis, nephrolithiasis with staghorn calculus. ALLERGIES: Allergic to morphine. MEDICATIONS: Magnesium hydroxide, ferrous sulfate, Bisacodyl, vitamin C, folic acid, Zyprexa, Colace, multivitamin, Tylenol, amlodipine, heparin, Zosyn, albuterol. SOCIAL HISTORY: [facility] resident. No other history obtainable by the patient. She is confused. PHYSICAL EXAMINATION: VITAL SIGNS: Current temperature 97.5, pulse 63, blood pressure 111/63. GENERAL APPEARANCE: Seems to be underweight, no acute distress. HEAD AND NECK: [place] conjunctiva. HEART: Normal rate. LUNGS: Clear. ABDOMEN: Soft. G-tube feeding in place. EXTREMITIES: No edema. SKIN: Right foot deep tissue injury, has multiple stage I pressure ulcers on back. NEUROLOGIC: Confused. Moves all extremities. LABORATORY AND DIAGNOSTIC DATA: WBC today is 14.9, hemoglobin 9.1, hematocrit 30.2, platelet 92. Sodium 153, potassium 3.3, chloride 120, BUN 53, creatinine 1.2. Creatinine at the time of admission was 2 and BUN was 90. Lactic acid was elevated 2.8, return back to normal. Troponin was slightly elevated to 0.157. Chest x-ray showed interstitial edema, volume overload, congestive heart failure. IMPRESSION: Sepsis with tachycardia, fever, and leukocytosis. Source seems to be urinary tract infection. The patient has recent history of admission with urinary tract infection. Urine culture growing gram-negative bacilli . Blood cultures so far negative. She has acute renal failure, has nephrolithiasis, and hydronephrosis, has anemia, MRSA carrier, hypernatremia. RECOMMENDATION: We will change antibiotic to meropenem. We will follow up the cultures. At the end of my exam, I thank Dr. Bernal for involving me in the care of this patient. Jacobo Seals M.D. DR: Moe JOB#: [id number] CC: LENCHO
--- NOTE | 2019-03-15 19:25 | NUR ---
HAND-OFF: Report given to JANE Chavira RN.
--- NOTE | 2019-03-15 19:26 | NUR ---
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
[2019-03-15 20:00] VITALS: BP 103/77
[2019-03-15] MEDS: Milk of Magnesia 30ml Ud GT SCH (20:48)
[2019-03-16] VITALS: BP 118/51
[2019-03-16] MEDS: D5W w/KCl 20mEq 1,000 ML IV SCH ×2 (00:12→15:14)
[2019-03-16 04:00] VITALS: BP 116/61
[2019-03-16] MEDS: Ferrous Sulfate 300 MG/5 ML UDC GT SCH ×3 (05:37→21:05)
[2019-03-16 05:49] LABS: HEMATOCRIT 28.3 % (37.0-47.0); HEMOGLOBIN 8.8 G/DL (12.0-16.0); MEAN CORPUSCULAR VOLUME 91 FL (80-99); PLATELET COUNT 86 K/UL (150-450); RED BLOOD COUNT 3.12 M/UL (4.20-5.40); WHITE BLOOD COUNT 12.7 K/UL (4.8-10.8)
[2019-03-16 06:31] LABS: ANION GAP 10 mmol/L (5-15); BLOOD UREA NITROGEN 36 mg/dL (7-18); CALCIUM 8.6 MG/DL (8.5-10.1); CARBON DIOXIDE 24 MMOL/L (21-32); CHLORIDE 117 MMOL/L (98-107); CREATININE 1.2 MG/DL (0.55-1.30); POTASSIUM 3.4 MMOL/L (3.5-5.1); SODIUM 150 MMOL/L (136-145)
--- NOTE | 2019-03-16 07:18 | NUR ---
HAND-OFF: Report given to JUNIOR Hernandez.Patient stable,sleeping.
--- NOTE | 2019-03-16 07:19 | NUR ---
NURSE NOTES: Received patient in bed. On nasal cannula at 4LPM. No respiratory distress. With IVF running on patient's right hand. On continuous GTF. Bryant cath noted. Contact isolation observed. Will continue plan of care.
[2019-03-16 08:00] VITALS: BP 126/44
--- NOTE | 2019-03-16 08:20 | Nephrology Progress Note ---
Assessment/Plan Status: stable, progressing Assessment/Plan: A/P 1) HELENE- resolved, Cr down to 1.2 - continue IV Abx and fluids 2) Hypernatremia- approx 4 L free water deficit -D5W with KCL, Na down to 150 3) Hypokalemia- being replaced 4) Sepsis- defer Abx per PCP 5) Resp FL- off BiPAP Subjective Date patient seen: Mar 16, 2019 Time patient seen: 08:18 ROS Limited/Unobtainable: Yes Allergies: Coded Allergies: MORPHINE (Verified Allergy, Unknown, 07/18/09) Subjective Patient off BiPAP. Slowly improving Objective Last 24 Hour Vital Signs Date Time Temp Pulse Resp B/P (MAP) Pulse Ox O2 Delivery O2 Flow Rate FiO2 03/16/19 04:00 78 03/16/19 04:00 97.5 73 18 116/61 (79) 99 03/16/19 04:00 Nasal Cannula 4.0 03/16/19 00:00 Nasal Cannula 4.0 03/16/19 00:00 97.9 65 20 118/51 (73) 100 03/15/19 23:33 100 03/15/19 20:42 96 Nasal Cannula 2.0 28 03/15/19 20:00 98.7 82 26 103/77 (86) 98 03/15/19 20:00 Nasal Cannula 4.0 03/15/19 20:00 71 03/15/19 16:00 4.0 03/15/19 16:00 Nasal Cannula 4.0 03/15/19 16:00 97.3 60 22 91/40 (57) 99 03/15/19 15:43 63 03/15/19 12:00 Venturi Mask 8.0 03/15/19 12:00 75 03/15/19 12:00 97.1 76 24 118/60 (79) 98 03/15/19 09:25 8.0 03/15/19 09:25 Venturi Mask 8.0 03/15/19 09:24 40 03/15/19 09:12 63 111/63 03/15/19 08:54 63 24 96 Full Face 40 Intake and Output 03/15/19 03/16/19 19:00 07:00 Intake Total 1746.17 ml 1571 ml Output Total 900 ml 500 ml Balance 846.17 ml 1071 ml Intake Free Water 100 ml IV Total 786.17 ml 811 ml Tube Feeding 660 ml 660 ml Other 300 ml Output Urine Total 900 ml 500 ml # Bowel Movements 2 Laboratory Tests 03/16/19 04:25: White Blood Count 12.7H, Red Blood Count 3.12L, Hemoglobin 8.8L, Hematocrit 28.3L, Mean Corpuscular Volume 91, Mean Corpuscular Hemoglobin 28.3, Mean Corpuscular Hemoglobin Concent 31.2L, Red Cell Distribution Width 17.0H, Platelet Count 86L, Mean Platelet Volume 10.3H, Neutrophils (%) (Auto) , Lymphocytes (%) (Auto) , Monocytes (%) (Auto) , Eosinophils (%) (Auto) , Basophils (%) (Auto) , Sodium Level 150H, Potassium Level 3.4L, Chloride Level 117H, Carbon Dioxide Level 24, Anion Gap 10, Blood Urea Nitrogen 36H, Creatinine 1.2, Estimat Glomerular Filtration Rate , Glucose Level 143H, Calcium Level 8.6, Troponin I 0.039 Height (Feet): 5 Weight (Pounds): 100 General Appearance: no apparent distress EENT: normal ENT inspection Neck: normal alignment, supple Cardiovascular: normal rate, regular rhythm Respiratory/Chest: rhonchi - bilaterally Abdomen: non tender, soft Edema: no edema noted Arm (L), no edema noted Arm (R), no edema noted Leg (L), no edema noted Leg (R), no edema noted Pedal (L), no edema noted Pedal (R), no edema noted Generalized Harsh Elmore MD Mar 16, 2019 08:20
[2019-03-16] MEDS: Acetaminophen 500mg (ES) tab ORAL PRN (08:29)
[2019-03-16] MEDS: Ascorbic Acid 500mg tab GT SCH (08:29)
[2019-03-16] MEDS: Multivitamins W/Minerals 15 ML UDC GT SCH (08:29)
[2019-03-16] MEDS: Pantoprazole Inj IVP SCH (08:29)
[2019-03-16] MEDS: Brimonidine 0.2% Opth Sol BOTH EYES SCH ×3 (08:29→17:19)
[2019-03-16] MEDS: Docusate 100mg/10ml Liq GT SCH ×2 (08:29→21:05)
[2019-03-16] MEDS: Heparin 5000 units/ml inj SUBQ SCH ×2 (08:40→21:00)
--- NOTE | 2019-03-16 08:44 | Pulmonology Progress Note ---
Assessment/Plan Assessment/Plan IMPRESSION: 1. Respiratory failure, acute. improved 2. Hypoxemia, improved 3. Sepsis likely with leukocytosis. 4. Acute on chronic renal failure. 5. Severe protein-calorie malnutrition. 6. UTI likely. 7. Hypernatremia 8. anemia, likely chronic disease 9. thrombocytopenia PLAN d/w nursing off BIPAP monitor ABG for change IV antibiotics IV fluids as per renal follow up lytes and recommend monitor for change seems improved dc back to snf when improved; remains acute impression, plan, and exam edited and reviewed in detail care discussed with RN Subjective ROS Limited/Unobtainable: Yes Allergies: Coded Allergies: MORPHINE (Verified Allergy, Unknown, 07/18/09) Subjective has been on BIPAP on oxygen NC and comfortable poorly responsive Objective Last 24 Hour Vital Signs Date Time Temp Pulse Resp B/P (MAP) Pulse Ox O2 Delivery O2 Flow Rate FiO2 03/16/19 08:41 96 Nasal Cannula 2.0 28 03/16/19 08:30 78 126/44 03/16/19 08:00 100.7 72 24 126/44 (71) 98 03/16/19 08:00 Nasal Cannula 4.0 03/16/19 08:00 Nasal Cannula 4.0 03/16/19 04:00 78 03/16/19 04:00 97.5 73 18 116/61 (79) 99 03/16/19 04:00 Nasal Cannula 4.0 03/16/19 00:00 Nasal Cannula 4.0 03/16/19 00:00 97.9 65 20 118/51 (73) 100 03/15/19 23:33 100 03/15/19 20:42 96 Nasal Cannula 2.0 28 03/15/19 20:00 98.7 82 26 103/77 (86) 98 03/15/19 20:00 Nasal Cannula 4.0 03/15/19 20:00 71 03/15/19 16:00 4.0 03/15/19 16:00 Nasal Cannula 4.0 03/15/19 16:00 97.3 60 22 91/40 (57) 99 03/15/19 15:43 63 03/15/19 12:00 Venturi Mask 8.0 03/15/19 12:00 75 03/15/19 12:00 97.1 76 24 118/60 (79) 98 03/15/19 09:25 8.0 7/8/19 09:25 Venturi Mask 8.0 03/15/19 09:24 40 03/15/19 09:12 63 111/63 03/15/19 08:54 63 24 96 Full Face 40 Intake and Output 03/15/19 03/16/19 19:00 07:00 Intake Total 1746.17 ml 1571 ml Output Total 900 ml 500 ml Balance 846.17 ml 1071 ml Intake Free Water 100 ml IV Total 786.17 ml 811 ml Tube Feeding 660 ml 660 ml Other 300 ml Output Urine Total 900 ml 500 ml # Bowel Movements 2 Objective GENERAL: Chronically ill-appearing female. poorly responsive on oxygen HEENT: Negative. oropharynx improved NECK: Supple. LUNGS: With moderate breath sounds. scattered rhonchi. no wheeze CARDIAC: regular rate and rhythm without murmurs, rubs, or gallops. ABDOMEN: Soft, nontender. G-tube in place. no distention. no HSM EXTREMITIES: Noted contractures. No cyanosis or clubbing. No edema. NEURO: poorly responsive reviewed and edited Microbiology Date/Time Source Procedure Growth Status 03/14/19 02:05 Blood Blood Culture - Preliminary NO GROWTH AFTER 48 HOURS Resulted 03/14/19 01:50 Blood Blood Culture - Preliminary NO GROWTH AFTER 48 HOURS Resulted 03/14/19 01:30 Nasal Nares MRSA Culture - Final Staphylococcus Aureus - Mrsa Complete 03/14/19 02:00 Urine,Clean Catch Urine Culture - Final Escherichia Coli - Esbl Complete 03/14/19 01:50 Rectum VRE Culture - Final NO VANCOMYCIN RESISTANT ENTEROCOCCUS ... Complete 03/14/19 01:30 Rectum - Final NO CARBAPENEM-RESISTANT ENTEROBACTERI... Complete Laboratory Tests 03/16/19 04:25: White Blood Count 12.7H, Red Blood Count 3.12L, Hemoglobin 8.8L, Hematocrit 28.3L, Mean Corpuscular Volume 91, Mean Corpuscular Hemoglobin 28.3, Mean Corpuscular Hemoglobin Concent 31.2L, Red Cell Distribution Width 17.0H, Platelet Count 86L, Mean Platelet Volume 10.3H, Neutrophils (%) (Auto) , Lymphocytes (%) (Auto) , Monocytes (%) (Auto) , Eosinophils (%) (Auto) , Basophils (%) (Auto) , Sodium Level 150H, Potassium Level 3.4L, Chloride Level 117H, Carbon Dioxide Level 24, Anion Gap 10, Blood Urea Nitrogen 36H, Creatinine 1.2, Estimat Glomerular Filtration Rate , Glucose Level 143H, Calcium Level 8.6, Troponin I 0.039 Current Medications Medications (Trade) Dose Ordered Sig/Marcos Route PRN Reason Start Time Stop Time Status Last Admin Dose Admin Acetaminophen (Tylenol) 650 mg Q4HR PRN ORAL Mild Pain/Temp > 100.5 03/14/19 09:00 04/13/19 04:59 03/16/19 08:29 Al Hydroxide/Mg Hydroxide (Mylanta) 30 ml Q4HR PRN GT DYSPESIA 03/14/19 09:00 04/13/19 04:44 Albuterol Sulfate (Proventil) 2.5 mg Q4HRT PRN HHN Shortness of Breath 03/14/19 07:00 03/19/19 04:44 Amlodipine Besylate (Norvasc) 5 mg DAILY GT 03/14/19 09:00 04/13/19 08:59 03/16/19 08:30 Ascorbic Acid (Vitamin C) 500 mg DAILY GT 03/15/19 09:00 04/13/19 08:59 03/16/19 08:29 Bisacodyl (Dulcolax) 10 mg DAILYPRN PRN RECTAL Constipation 03/15/19 09:15 04/14/19 09:14 Brimonidine Tartrate (Alphagan) 1 drop TID BOTH EYES 03/14/19 09:00 04/13/19 08:59 03/16/19 08:29 Dextrose/ Electrolytes 1,000 ml @ 70 mls/hr [id number] IV 03/15/19 09:00 04/14/19 08:59 03/16/19 00:12 Docusate Sodium (Colace) 100 mg EVERY 12 HOURS GT 03/15/19 09:00 04/14/19 08:59 03/16/19 08:29 Ferrous Sulfate (Feosol) 300 mg EVERY 8 HOURS GT 03/15/19 14:00 04/14/19 13:59 03/16/19 05:37 Folic Acid (Folate) 1 mg DAILY GT 03/15/19 09:00 04/13/19 08:59 03/16/19 08:29 Heparin Sodium (Porcine) (Heparin 5000 units/ml) 5,000 units EVERY 12 HOURS SUBQ 03/14/19 09:00 04/13/19 08:59 03/14/19 20:39 Lorazepam (Ativan) 1 mg Q4HR PRN ORAL For Anxiety 03/14/19 09:00 03/21/19 04:59 03/15/19 20:47 Magnesium Hydroxide (Mom) 5 ml EVERY 6 HOURS PRN GT Constipation 03/14/19 06:00 04/13/19 04:59 Magnesium Hydroxide (Mom) 30 ml BEDTIME GT 03/15/19 21:00 04/13/19 20:59 03/15/19 20:48 Meropenem 1 gm/ Sodium Chloride 55 ml @ 110 mls/hr Q12HR IVPB 03/15/19 14:00 03/20/19 13:59 03/15/19 20:48 Multivitamins (Multivitamins W/ Minerals 15ml Liquid) 15 ml DAILY GT 03/15/19 09:00 04/14/19 08:59 03/16/19 08:29 Olanzapine (ZyPREXA) 5 mg TID GT 03/15/19 09:00 04/13/19 08:59 03/16/19 08:29 Pantoprazole (Protonix) 40 mg DAILY IVP 03/15/19 09:00 04/14/19 08:59 03/16/19 08:29 Potassium Chloride 100 ml @ 100 mls/hr NOW ONCE IVPB 03/16/19 08:30 03/16/19 09:29 Zolpidem Tartrate (Ambien) 5 mg BEDTIME PRN ORAL Insomnia 03/14/19 21:00 03/21/19 04:59 03/15/19 20:47 Ac Bernal MD Mar 16, 2019 08:44
--- NOTE | 2019-03-16 09:12 | General Progress Note ---
Assessment/Plan Problem List: (1) Schizophrenia ICD Codes: F20.9 - Schizophrenia, unspecified SNOMED: 12553472 (2) Renal failure ICD Codes: N19 - Unspecified kidney failure SNOMED: 97735893 (3) HTN (hypertension) ICD Codes: I10 - Essential (primary) hypertension SNOMED: 16192791 (4) Sepsis ICD Codes: A41.9 - Sepsis, unspecified organism SNOMED: 58484953 Qualifiers: Qualified Codes: A41.9 - Sepsis, unspecified organism (5) ESBL (extended spectrum beta-lactamase) producing bacteria infection ICD Codes: A49.9 - Bacterial infection, unspecified; Z16.12 - Extended spectrum beta lactamase (ESBL) resistance SNOMED: 210586496, 228696290 (6) Acute metabolic encephalopathy ICD Codes: G93.41 - Metabolic encephalopathy SNOMED: 68069220, 546403657 (7) Altered mental status ICD Codes: R41.82 - Altered mental status, unspecified SNOMED: 325250705 (8) HCAP (healthcare-associated pneumonia) ICD Codes: J18.9 - Pneumonia, unspecified organism SNOMED: 414017702, 982879339 Status: stable, progressing Assessment/Plan: resp rx bipap as needed hypotonic fluids- per renal iv abx follow up cultures monitor cxr tylenol for fevers Subjective ROS Limited/Unobtainable: Yes Constitutional: Reports: malaise, weakness HEENT: Reports: no symptoms Cardiovascular: Reports: no symptoms Respiratory: Reports: cough, shortness of breath Gastrointestinal/Abdominal: Reports: difficulty swallowing Genitourinary: Reports: no symptoms Neurologic/Psychiatric: Reports: pre-existing deficit Endocrine: Reports: no symptoms Hematologic/Lymphatic: Reports: no symptoms Allergies: Coded Allergies: MORPHINE (Verified Allergy, Unknown, 07/18/09) All Systems: reviewed and negative except above Subjective no events. off bipap. poorly responsive. + fever or chills. on iv abx. Objective Last 24 Hour Vital Signs Date Time Temp Pulse Resp B/P (MAP) Pulse Ox O2 Delivery O2 Flow Rate FiO2 03/16/19 08:59 99.8 03/16/19 08:41 96 Nasal Cannula 2.0 28 03/16/19 08:30 78 126/44 03/16/19 08:00 100.7 72 24 126/44 (71) 98 03/16/19 08:00 Nasal Cannula 4.0 03/16/19 08:00 Nasal Cannula 4.0 03/16/19 04:00 78 03/16/19 04:00 97.5 73 18 116/61 (79) 99 03/16/19 04:00 Nasal Cannula 4.0 03/16/19 00:00 Nasal Cannula 4.0 03/16/19 00:00 97.9 65 20 118/51 (73) 100 03/15/19 23:33 100 03/15/19 20:42 96 Nasal Cannula 2.0 28 03/15/19 20:00 98.7 82 26 103/77 (86) 98 03/15/19 20:00 Nasal Cannula 4.0 03/15/19 20:00 71 03/15/19 16:00 4.0 03/15/19 16:00 Nasal Cannula 4.0 03/15/19 16:00 97.3 60 22 91/40 (57) 99 03/15/19 15:43 63 03/15/19 12:00 Venturi Mask 8.0 03/15/19 12:00 75 03/15/19 12:00 97.1 76 24 118/60 (79) 98 03/15/19 09:25 8.0 03/15/19 09:25 Venturi Mask 8.0 03/15/19 09:24 40 03/15/19 09:12 63 111/63 Intake and Output 03/15/19 03/16/19 19:00 07:00 Intake Total 1746.17 ml 1571 ml Output Total 900 ml 500 ml Balance 846.17 ml 1071 ml Intake Free Water 100 ml IV Total 786.17 ml 811 ml Tube Feeding 660 ml 660 ml Other 300 ml Output Urine Total 900 ml 500 ml # Bowel Movements 2 Laboratory Tests 03/16/19 04:25: White Blood Count 12.7H, Red Blood Count 3.12L, Hemoglobin 8.8L, Hematocrit 28.3L, Mean Corpuscular Volume 91, Mean Corpuscular Hemoglobin 28.3, Mean Corpuscular Hemoglobin Concent 31.2L, Red Cell Distribution Width 17.0H, Platelet Count 86L, Mean Platelet Volume 10.3H, Neutrophils (%) (Auto) , Lymphocytes (%) (Auto) , Monocytes (%) (Auto) , Eosinophils (%) (Auto) , Basophils (%) (Auto) , Sodium Level 150H, Potassium Level 3.4L, Chloride Level 117H, Carbon Dioxide Level 24, Anion Gap 10, Blood Urea Nitrogen 36H, Creatinine 1.2, Estimat Glomerular Filtration Rate , Glucose Level 143H, Calcium Level 8.6, Troponin I 0.039 Height (Feet): 5 Weight (Pounds): 100 Objective General Appearance: WD/WN, lethargic, confused Cardiovascular: regular rhythm Respiratory/Chest: lungs clear, normal breath sounds Abdomen: normal bowel sounds, non tender, soft, no organomegaly Edema: no edema noted Arm (L), no edema noted Arm (R), no edema noted Leg (L), no edema noted Leg (R), no edema noted Pedal (L), no edema noted Pedal (R), no edema noted Generalized Clayton Scales MD Mar 16, 2019 09:12
--- NOTE | 2019-03-16 11:23 | Surgery Progress Note ---
Surgery Progress Note Subjective Additional Comments low grade fevers. leukocytosis improving. exam unchanged slowly improving Objective Last 24 Hour Vital Signs Date Time Temp Pulse Resp B/P (MAP) Pulse Ox O2 Delivery O2 Flow Rate FiO2 03/16/19 09:48 75 03/16/19 08:59 99.8 03/16/19 08:41 96 Nasal Cannula 2.0 28 03/16/19 08:30 78 126/44 03/16/19 08:00 100.7 72 24 126/44 (71) 98 03/16/19 08:00 Nasal Cannula 4.0 03/16/19 08:00 Nasal Cannula 4.0 03/16/19 04:00 78 03/16/19 04:00 97.5 73 18 116/61 (79) 99 03/16/19 04:00 Nasal Cannula 4.0 03/16/19 00:00 Nasal Cannula 4.0 03/16/19 00:00 97.9 65 20 118/51 (73) 100 03/15/19 23:33 100 03/15/19 20:42 96 Nasal Cannula 2.0 28 03/15/19 20:00 98.7 82 26 103/77 (86) 98 03/15/19 20:00 Nasal Cannula 4.0 03/15/19 20:00 71 03/15/19 16:00 4.0 03/15/19 16:00 Nasal Cannula 4.0 03/15/19 16:00 97.3 60 22 91/40 (57) 99 03/15/19 15:43 63 03/15/19 12:00 Venturi Mask 8.0 03/15/19 12:00 75 03/15/19 12:00 97.1 76 24 118/60 (79) 98 I&O Intake and Output 03/15/19 03/16/19 19:00 07:00 Intake Total 1746.17 ml 1571 ml Output Total 900 ml 500 ml Balance 846.17 ml 1071 ml Intake Free Water 100 ml IV Total 786.17 ml 811 ml Tube Feeding 660 ml 660 ml Other 300 ml Output Urine Total 900 ml 500 ml # Bowel Movements 2 Dressing: saturated Wound: clean Cardiovascular: RSR Respiratory: clear Abdomen: soft, present bowel sounds, non-distended Extremities: no cyanosis, other Laboratory Tests Test 03/16/19 04:25 White Blood Count 12.7 K/UL (4.8-10.8) H Red Blood Count 3.12 M/UL (4.20-5.40) L Hemoglobin 8.8 G/DL (12.0-16.0) L Hematocrit 28.3 % (37.0-47.0) L Mean Corpuscular Volume 91 FL (80-99) Mean Corpuscular Hemoglobin 28.3 PG (27.0-31.0) Mean Corpuscular Hemoglobin Concent 31.2 G/DL (32.0-36.0) L Red Cell Distribution Width 17.0 % (11.6-14.8) H Platelet Count 86 K/UL (150-450) L Mean Platelet Volume 10.3 FL (6.5-10.1) H Neutrophils (%) (Auto) % (45.0-75.0) Lymphocytes (%) (Auto) % (20.0-45.0) Monocytes (%) (Auto) % (1.0-10.0) Eosinophils (%) (Auto) % (0.0-3.0) Basophils (%) (Auto) % (0.0-2.0) Sodium Level 150 MMOL/L (136-145) H Potassium Level 3.4 MMOL/L (3.5-5.1) L Chloride Level 117 MMOL/L (98-107) H Carbon Dioxide Level 24 MMOL/L (21-32) Anion Gap 10 mmol/L (5-15) Blood Urea Nitrogen 36 mg/dL (7-18) H Creatinine 1.2 MG/DL (0.55-1.30) Estimat Glomerular Filtration Rate mL/min (>60) Glucose Level 143 MG/DL (74-106) H Calcium Level 8.6 MG/DL (8.5-10.1) Troponin I 0.039 ng/mL (0.000-0.056) Plan Problems: (1) Decubitus skin ulcer Assessment & Plan: Pt presented on admission with multiple pressure injuries and contractures. Non-blanchable erythema noted to bridge of nostril. Raised, indurated and erythematous are noted to R scapula. Periwound without erythema or induration.(L)2.5cm x (W)3cm. R trochanter maroon in colour with an area of fluctuance proximally within base of wound. Periwound without erythema or induration.(L)12.5cm x (W)7cm. L trochanter purple centrally with surrounding maroon discoloration and is indurated with marginal erythema. Periwound without induration of fluctuance.(L) 5.5cm x (W)6cm. Scattered areas of non-blanchable erythema without induration/fluctuance noted to sacrum, R and L clefts of buttocks. Stable dry eschar noted distally ,plantar R foot. Periwound without erythema or fluctuance.(L)1.5cm x (W)2cm. R and L heels are pink and blanchable. Tx.Plan: Apply Cavilon Skin Barrier to R scapula.Cover with Optifoam drsg. Change every 7 days and prn. Apply Cavilon Skin Barrier to R and L trochanters. Cover each site with Optifoam drsgs. Change every 7 days and prn. Apply Moisture Barrier Paste to sacrum .Cover sacrum with Optifoam drsg. Change every 3 days and prn. Apply Cavilon Skin Barrier to Plantar R foot. Cover with Optifoam drsg. Change every 7 days and prn. Apply Cavilon Skin Barrier to both heels. Cover each heel with Optifoam drsg. Change every 7 days and prn. APM/LEONARD mattress. Reposition at least every 2hours or as tolerated. Place pillow between knees. Off-load heels with pillow. (2) Renal failure (3) Schizophrenia (4) Sepsis Assessment & Plan: Leukocytosis - trending down anemia - likely chronic as no signs of acute bleed ABG improved UTI on IV Abx cont abx wounds not actively infected (5) Altered mental status (6) HTN (hypertension) (7) ESBL (extended spectrum beta-lactamase) producing bacteria infection (8) HCAP (healthcare-associated pneumonia) (9) Acute metabolic encephalopathy Assessment & Plan: DAILY ESTIMATED NEEDS: Needs based on Underweight, sepsis/ 43.9kg 30-35 kcals/kg 3601-1879 total kcals 1.25-2 g protein/kg 55-88 g total protein 25-30 mL/kg 7951-7804 total fluid mLs NUTRITION DIAGNOSIS: * Swallowing difficulty R/T dysphagia as evidenced by pt is PEG dep. * Increased kcal/prot needs R/T underweight status as evidenced by low BMI per guidelines, noted w/ moderate to severe generalized wasting. ENTERAL NUTRITION RECOMMENDATIONS: Jevity 1.2 @ 55ml/hr x 24 hrs to provide 1320ml, 1584kcal, 73g prot, 1065ml free H2O * Rec to maintain current goal rate * HOB over 30 degrees/ water flush per MD ADDITIONAL RECOMMENDATIONS: * Calibrated bedscale wt, weekly wt monitoring * DC NS IVF and consider D5 IVF or increase water flushes -> Na trending up * Monitor lytes, replete as needed * Pending WC eval: per RN redness @BL hip + R foot KAYLEEN BID, f/up w/ WC eval (10) Urinary tract infection (11) Nephrolithiasis (12) Obstructive uropathy (13) Noncompliance (14) Dehydration (15) Proteinuria (16) ARF (acute renal failure) Alistair Nieves Mar 16, 2019 11:23
[2019-03-16] MEDS: Meropenem 1 GM in NS 55 ML IVPB SCH ×2 (11:47→21:05)
[2019-03-16 12:00] VITALS: BP 115/48
[2019-03-16 16:00] VITALS: BP 135/62
[2019-03-16] MEDS ORDERED: Vancomycin 500mg/D5W 110ml IVPB SCH ×2 (17:00)
--- NOTE | 2019-03-16 19:25 | NUR ---
HAND-OFF: Report given to JUNIOR FOWLER.
--- NOTE | 2019-03-16 19:26 | NUR ---
NURSE NOTES: Report received from JUNIOR Hernandez. Observed pt lying in bed. A/O x1. No signs of pain noted. SR with monitoring specialist. On ventri mask 8L. GT site intact and running Jevity 1.2 at 55cc/hr. Abd soft, round, and non-tender. F/C intact and draining well, light chrystal color urine noted. IV on L H 22G, SL. R FA 22G, running D5 20meq kcl at 70cc/hr. Bed in the lowest position. Side rails up x3. Call light within reach. Will continue to monitor.
[2019-03-16 20:00] VITALS: BP 111/54
[2019-03-16] MEDS: Milk of Magnesia 30ml Ud GT SCH (21:05)
[2019-03-17] VITALS: BP 109/55
[2019-03-17 04:00] VITALS: BP 124/52
[2019-03-17] MEDS: D5W w/KCl 20mEq 1,000 ML IV SCH (04:23)
[2019-03-17] MEDS: Ferrous Sulfate 300 MG/5 ML UDC GT SCH ×3 (06:26→21:15)
[2019-03-17 06:59] LABS: ANION GAP 10 mmol/L (5-15); BLOOD UREA NITROGEN 27 mg/dL (7-18); CALCIUM 8.2 MG/DL (8.5-10.1); CARBON DIOXIDE 23 MMOL/L (21-32); CHLORIDE 108 MMOL/L (98-107); CREATININE 0.9 MG/DL (0.55-1.30); POTASSIUM 3.8 MMOL/L (3.5-5.1); SODIUM 141 MMOL/L (136-145)
--- NOTE | 2019-03-17 07:45 | NUR ---
HAND-OFF: Report given to JUNIOR Fontanez. No acute distress noted at this time.
--- NOTE | 2019-03-17 07:54 | Nephrology Progress Note ---
Assessment/Plan Status: stable, progressing Assessment/Plan: A/P 1) HELENE- resolved 2) Hypernatremia- approx 4 L free water deficit -resolved. DC IVFs 3) Hypokalemia- resolved 4) Sepsis- defer Abx per PCP 5) Resp FL- off BiPAP Subjective Date patient seen: Mar 17, 2019 Time patient seen: 07:53 ROS Limited/Unobtainable: No Allergies: Coded Allergies: MORPHINE (Verified Allergy, Unknown, 07/18/09) Subjective Patient off BiPAP and more coherent Objective Last 24 Hour Vital Signs Date Time Temp Pulse Resp B/P (MAP) Pulse Ox O2 Delivery O2 Flow Rate FiO2 03/17/19 07:40 94 Venturi Mask 8.0 40 03/17/19 07:38 82 19 95 Venturi Mask 8.0 40 03/17/19 04:00 65 03/17/19 04:00 98.2 70 24 124/52 (76) 95 03/17/19 04:00 Venturi Mask 8.0 03/17/19 00:00 Venturi Mask 8.0 03/17/19 00:00 98.2 68 17 109/55 (73) 95 03/17/19 00:00 67 03/16/19 20:14 65 03/16/19 20:00 99.9 71 26 111/54 (73) 99 03/16/19 20:00 Venturi Mask 8.0 03/16/19 19:30 95 Venturi Mask 8.0 40 03/16/19 19:30 81 18 95 Venturi Mask 8.0 40 03/16/19 16:00 Venturi Mask 8.0 03/16/19 16:00 98.5 61 29 135/62 (86) 92 03/16/19 15:21 63 03/16/19 12:55 59 03/16/19 12:00 97.9 60 26 115/48 (70) 93 03/16/19 12:00 Venturi Mask 8.0 03/16/19 09:48 75 03/16/19 08:59 99.8 03/16/19 08:41 96 Nasal Cannula 2.0 28 03/16/19 08:30 78 126/44 03/16/19 08:00 100.7 72 24 126/44 (71) 98 03/16/19 08:00 Nasal Cannula 4.0 03/16/19 08:00 Nasal Cannula 4.0 Intake and Output 03/16/19 03/17/19 19:00 07:00 Intake Total 1838.67 ml 1755 ml Output Total 800 ml 700 ml Balance 1038.67 ml 1055 ml Intake Free Water 200 ml IV Total 878.67 ml 895 ml Tube Feeding 660 ml 660 ml Other 300 ml Output Urine Total 800 ml 700 ml # Bowel Movements 3 Laboratory Tests 03/16/19 11:20: Arterial Blood pH 7.457H, Arterial Blood Partial Pressure CO2 31.0L, Arterial Blood Partial Pressure O2 69.9L, Arterial Blood HCO3 21.4L, Arterial Blood Oxygen Saturation 94.2L, Arterial Blood Base Excess -1.9, Jonah Test Positive 03/17/19 04:00: Sodium Level 141, Potassium Level 3.8, Chloride Level 108H, Carbon Dioxide Level 23, Anion Gap 10, Blood Urea Nitrogen 27H, Creatinine 0.9, Estimat Glomerular Filtration Rate , Glucose Level 114H, Calcium Level 8.2L Height (Feet): 5 Weight (Pounds): 101 General Appearance: no apparent distress EENT: normal ENT inspection Neck: supple Cardiovascular: normal rate Respiratory/Chest: rhonchi - bilaterally Edema: no edema noted Arm (L), no edema noted Arm (R), no edema noted Leg (L), no edema noted Leg (R), no edema noted Pedal (L), no edema noted Pedal (R), no edema noted Generalized Harsh Elmore MD Mar 17, 2019 07:54
[2019-03-17 07:58] VITALS: BP 120/63
--- NOTE | 2019-03-17 08:10 | NUR ---
NURSE NOTES: received pt in the bed, awake, confused, vital signs stable, no co pain, no SOB, venturi mask 8L,multiple decub, dressing dry and intact, tolerate GT feeding well, Bryant catheter with yellow urine, bed in low position, call light within reach.
[2019-03-17] MEDS: Multivitamins W/Minerals 15 ML UDC GT SCH (08:35)
[2019-03-17] MEDS: Docusate 100mg/10ml Liq GT SCH ×2 (08:35→21:15)
[2019-03-17] MEDS: Ascorbic Acid 500mg tab GT SCH (08:35)
[2019-03-17] MEDS: Brimonidine 0.2% Opth Sol BOTH EYES SCH ×3 (08:35→17:47)
[2019-03-17] MEDS: Pantoprazole Inj IVP SCH (08:35)
[2019-03-17] MEDS: Heparin 5000 units/ml inj SUBQ SCH ×2 (08:36→21:00)
[2019-03-17] MEDS: Meropenem 1 GM in NS 55 ML IVPB SCH ×2 (08:36→21:15)
--- NOTE | 2019-03-17 08:38 | General Progress Note ---
Assessment/Plan Problem List: (1) Schizophrenia ICD Codes: F20.9 - Schizophrenia, unspecified SNOMED: 64164810 (2) Renal failure ICD Codes: N19 - Unspecified kidney failure SNOMED: 60649642 (3) HTN (hypertension) ICD Codes: I10 - Essential (primary) hypertension SNOMED: 15975411 (4) Sepsis ICD Codes: A41.9 - Sepsis, unspecified organism SNOMED: 37159445 Qualifiers: Qualified Codes: A41.9 - Sepsis, unspecified organism (5) ESBL (extended spectrum beta-lactamase) producing bacteria infection ICD Codes: A49.9 - Bacterial infection, unspecified; Z16.12 - Extended spectrum beta lactamase (ESBL) resistance SNOMED: 357206217, 948823963 (6) Acute metabolic encephalopathy ICD Codes: G93.41 - Metabolic encephalopathy SNOMED: 00372314, 270793346 (7) Altered mental status ICD Codes: R41.82 - Altered mental status, unspecified SNOMED: 805228707 (8) HCAP (healthcare-associated pneumonia) ICD Codes: J18.9 - Pneumonia, unspecified organism SNOMED: 561235812, 571106660 Status: stable, progressing Assessment/Plan: resp rx bipap as needed hypotonic fluids- per renal iv abx follow up cultures monitor cxr tylenol for fevers Subjective ROS Limited/Unobtainable: No Constitutional: Reports: malaise, weakness Allergies: Coded Allergies: MORPHINE (Verified Allergy, Unknown, 07/18/09) Subjective no events. off bipap. more responsive. answering simple questions and following commands on iv abx. Objective Last 24 Hour Vital Signs Date Time Temp Pulse Resp B/P (MAP) Pulse Ox O2 Delivery O2 Flow Rate FiO2 03/17/19 08:35 82 120/63 03/17/19 08:00 Venturi Mask 8.0 03/17/19 07:58 99.9 82 14 120/63 (82) 95 03/17/19 07:40 94 Venturi Mask 8.0 40 03/17/19 07:38 82 19 95 Venturi Mask 8.0 40 03/17/19 04:00 65 03/17/19 04:00 98.2 70 24 124/52 (76) 95 03/17/19 04:00 Venturi Mask 8.0 03/17/19 00:00 Venturi Mask 8.0 03/17/19 00:00 98.2 68 17 109/55 (73) 95 03/17/19 00:00 67 03/16/19 20:14 65 03/16/19 20:00 99.9 71 26 111/54 (73) 99 03/16/19 20:00 Venturi Mask 8.0 03/16/19 19:30 95 Venturi Mask 8.0 40 03/16/19 19:30 81 18 95 Venturi Mask 8.0 40 03/16/19 16:00 Venturi Mask 8.0 03/16/19 16:00 98.5 61 29 135/62 (86) 92 03/16/19 15:21 63 03/16/19 12:55 59 03/16/19 12:00 97.9 60 26 115/48 (70) 93 03/16/19 12:00 Venturi Mask 8.0 03/16/19 09:48 75 03/16/19 08:59 99.8 03/16/19 08:41 96 Nasal Cannula 2.0 28 Intake and Output 03/16/19 03/17/19 19:00 07:00 Intake Total 1838.67 ml 1755 ml Output Total 800 ml 700 ml Balance 1038.67 ml 1055 ml Intake Free Water 200 ml IV Total 878.67 ml 895 ml Tube Feeding 660 ml 660 ml Other 300 ml Output Urine Total 800 ml 700 ml # Bowel Movements 3 Laboratory Tests 03/16/19 11:20: Arterial Blood pH 7.457H, Arterial Blood Partial Pressure CO2 31.0L, Arterial Blood Partial Pressure O2 69.9L, Arterial Blood HCO3 21.4L, Arterial Blood Oxygen Saturation 94.2L, Arterial Blood Base Excess -1.9, Jonah Test Positive 03/17/19 04:00: Sodium Level 141, Potassium Level 3.8, Chloride Level 108H, Carbon Dioxide Level 23, Anion Gap 10, Blood Urea Nitrogen 27H, Creatinine 0.9, Estimat Glomerular Filtration Rate , Glucose Level 114H, Calcium Level 8.2L Height (Feet): 5 Weight (Pounds): 101 Objective General Appearance: WD/WN, lethargic, confused Cardiovascular: regular rhythm Respiratory/Chest: lungs clear, normal breath sounds Abdomen: normal bowel sounds, non tender, soft, no organomegaly Edema: no edema noted Arm (L), no edema noted Arm (R), no edema noted Leg (L), no edema noted Leg (R), no edema noted Pedal (L), no edema noted Pedal (R), no edema noted Generalized Clayton Scales MD Mar 17, 2019 08:38
--- NOTE | 2019-03-17 09:47 | Pulmonology Progress Note ---
Assessment/Plan Assessment/Plan IMPRESSION: 1. Respiratory failure, acute. improved 2. Hypoxemia, improved 3. Sepsis likely with leukocytosis. 4. Acute on chronic renal failure. 5. Severe protein-calorie malnutrition. 6. UTI likely. 7. Hypernatremia 8. anemia, likely chronic disease 9. thrombocytopenia PLAN d/w nursing and stable in PRECIOUS off BIPAP and no distress monitor ABG for change IV antibiotics reviewed cultures reviewed d/w ID IV fluids as per renal follow up lytes and recommend monitor for change and hope to proceed with dc in am dc back to snf - hope in am impression, plan, and exam edited and reviewed in detail care discussed with RN Subjective ROS Limited/Unobtainable: Yes Allergies: Coded Allergies: MORPHINE (Verified Allergy, Unknown, 07/18/09) Subjective reviewed care and cultures on oxygen NC and comfortable poorly responsive Objective Last 24 Hour Vital Signs Date Time Temp Pulse Resp B/P (MAP) Pulse Ox O2 Delivery O2 Flow Rate FiO2 03/17/19 08:35 82 120/63 03/17/19 08:00 79 03/17/19 08:00 Venturi Mask 8.0 03/17/19 07:58 99.9 82 14 120/63 (82) 95 03/17/19 07:40 94 Venturi Mask 8.0 40 03/17/19 07:38 82 19 95 Venturi Mask 8.0 40 03/17/19 04:00 65 03/17/19 04:00 98.2 70 24 124/52 (76) 95 03/17/19 04:00 Venturi Mask 8.0 03/17/19 00:00 Venturi Mask 8.0 03/17/19 00:00 98.2 68 17 109/55 (73) 95 03/17/19 00:00 67 03/16/19 20:14 65 03/16/19 20:00 99.9 71 26 111/54 (73) 99 03/16/19 20:00 Venturi Mask 8.0 03/16/19 19:30 95 Venturi Mask 8.0 40 03/16/19 19:30 81 18 95 Venturi Mask 8.0 40 03/16/19 16:00 Venturi Mask 8.0 03/16/19 16:00 98.5 61 29 135/62 (86) 92 03/16/19 15:21 63 03/16/19 12:55 59 03/16/19 12:00 97.9 60 26 115/48 (70) 93 03/16/19 12:00 Venturi Mask 8.0 03/16/19 09:48 75 Intake and Output 03/16/19 03/17/19 19:00 07:00 Intake Total 1838.67 ml 1755 ml Output Total 800 ml 700 ml Balance 1038.67 ml 1055 ml Intake Free Water 200 ml IV Total 878.67 ml 895 ml Tube Feeding 660 ml 660 ml Other 300 ml Output Urine Total 800 ml 700 ml # Bowel Movements 3 Objective GENERAL: Chronically ill-appearing female. poorly responsive on oxygen same HEENT: Negative. oropharynx improved NECK: Supple. LUNGS: With moderate breath sounds. scattered rhonchi. no wheeze- same CARDIAC: regular rate and rhythm without murmurs, rubs, or gallops. ABDOMEN: Soft, nontender. G-tube in place. no distention. no HSM EXTREMITIES: Noted contractures. No cyanosis or clubbing. No edema. NEURO: poorly responsive reviewed and edited Laboratory Tests 03/16/19 11:20: Arterial Blood pH 7.457H, Arterial Blood Partial Pressure CO2 31.0L, Arterial Blood Partial Pressure O2 69.9L, Arterial Blood HCO3 21.4L, Arterial Blood Oxygen Saturation 94.2L, Arterial Blood Base Excess -1.9, Jonah Test Positive 03/17/19 04:00: Sodium Level 141, Potassium Level 3.8, Chloride Level 108H, Carbon Dioxide Level 23, Anion Gap 10, Blood Urea Nitrogen 27H, Creatinine 0.9, Estimat Glomerular Filtration Rate , Glucose Level 114H, Calcium Level 8.2L Current Medications Medications (Trade) Dose Ordered Sig/Marcos Route PRN Reason Start Time Stop Time Status Last Admin Dose Admin Acetaminophen (Tylenol) 650 mg Q4HR PRN ORAL Mild Pain/Temp > 100.5 03/14/19 09:00 04/13/19 04:59 03/16/19 08:29 Al Hydroxide/Mg Hydroxide (Mylanta) 30 ml Q4HR PRN GT DYSPESIA 03/14/19 09:00 04/13/19 04:44 Albuterol Sulfate (Proventil) 2.5 mg Q4HRT PRN HHN Shortness of Breath 03/14/19 07:00 03/19/19 04:44 Amlodipine Besylate (Norvasc) 5 mg DAILY GT 03/14/19 09:00 04/13/19 08:59 03/17/19 08:35 Ascorbic Acid (Vitamin C) 500 mg DAILY GT 03/15/19 09:00 04/13/19 08:59 03/17/19 08:35 Bisacodyl (Dulcolax) 10 mg DAILYPRN PRN RECTAL Constipation 03/15/19 09:15 04/14/19 09:14 Brimonidine Tartrate (Alphagan) 1 drop TID BOTH EYES 03/14/19 09:00 04/13/19 08:59 03/17/19 08:35 Docusate Sodium (Colace) 100 mg EVERY 12 HOURS GT 03/15/19 09:00 04/14/19 08:59 03/17/19 08:35 Ferrous Sulfate (Feosol) 300 mg EVERY 8 HOURS GT 03/15/19 14:00 04/14/19 13:59 03/17/19 06:26 Folic Acid (Folate) 1 mg DAILY GT 03/15/19 09:00 04/13/19 08:59 03/17/19 08:35 Heparin Sodium (Porcine) (Heparin 5000 units/ml) 5,000 units EVERY 12 HOURS SUBQ 03/14/19 09:00 04/13/19 08:59 03/14/19 20:39 Lorazepam (Ativan) 1 mg Q4HR PRN ORAL For Anxiety 03/14/19 09:00 03/21/19 04:59 03/15/19 20:47 Magnesium Hydroxide (Mom) 5 ml EVERY 6 HOURS PRN GT Constipation 03/14/19 06:00 04/13/19 04:59 Magnesium Hydroxide (Mom) 30 ml BEDTIME GT 03/15/19 21:00 04/13/19 20:59 03/16/19 21:05 Meropenem 1 gm/ Sodium Chloride 55 ml @ 110 mls/hr Q12HR IVPB 03/15/19 14:00 03/20/19 13:59 03/17/19 08:36 Multivitamins (Multivitamins W/ Minerals 15ml Liquid) 15 ml DAILY GT 03/15/19 09:00 04/14/19 08:59 03/17/19 08:35 Olanzapine (ZyPREXA) 5 mg TID GT 03/15/19 09:00 04/13/19 08:59 03/17/19 08:35 Pantoprazole (Protonix) 40 mg DAILY IVP 03/15/19 09:00 04/14/19 08:59 03/17/19 08:35 Vancomycin HCl (Vanco rx to dose) 1 ea DAILY PRN MISC Per rx protocol 03/16/19 16:00 04/15/19 15:59 Vancomycin HCl 500 mg/Dextrose 110 ml @ 110 mls/hr Q24H IVPB 03/16/19 17:00 03/21/19 16:59 03/16/19 17:19 Zolpidem Tartrate (Ambien) 5 mg BEDTIME PRN ORAL Insomnia 03/14/19 21:00 03/21/19 04:59 03/15/19 20:47 Ac Bernal MD Mar 17, 2019 09:47
--- NOTE | 2019-03-17 11:20 | Infectious Diseases Prog Note ---
Assessment/Plan Assessment/Plan antibiotics : vancomycin iv, meropenem A 1. esbl e.coli UTI 2. + blood culture with coag neg staph likely contaminated 3,. MRSA nasal colonization 4. right nephrolithiasis 5. leucocytosis improving 6. renal failure improving P 1. continue meropenem 3 more days 2. d/c iv vancomycin 3. will follow up cultures Subjective ROS Limited/Unobtainable: Yes Allergies: Coded Allergies: MORPHINE (Verified Allergy, Unknown, 07/18/09) Objective Vital Signs Last 24 Hour Vital Signs Date Time Temp Pulse Resp B/P (MAP) Pulse Ox O2 Delivery O2 Flow Rate FiO2 03/17/19 08:35 82 120/63 03/17/19 08:00 79 03/17/19 08:00 Venturi Mask 8.0 03/17/19 07:58 99.9 82 14 120/63 (82) 95 03/17/19 07:40 94 Venturi Mask 8.0 40 03/17/19 07:38 82 19 95 Venturi Mask 8.0 40 03/17/19 04:00 65 03/17/19 04:00 98.2 70 24 124/52 (76) 95 03/17/19 04:00 Venturi Mask 8.0 03/17/19 00:00 Venturi Mask 8.0 03/17/19 00:00 98.2 68 17 109/55 (73) 95 03/17/19 00:00 67 03/16/19 20:14 65 03/16/19 20:00 99.9 71 26 111/54 (73) 99 03/16/19 20:00 Venturi Mask 8.0 03/16/19 19:30 95 Venturi Mask 8.0 40 03/16/19 19:30 81 18 95 Venturi Mask 8.0 40 03/16/19 16:00 Venturi Mask 8.0 03/16/19 16:00 98.5 61 29 135/62 (86) 92 03/16/19 15:21 63 03/16/19 12:55 59 03/16/19 12:00 97.9 60 26 115/48 (70) 93 03/16/19 12:00 Venturi Mask 8.0 Height (Feet): 5 Weight (Pounds): 101 Respiratory/Chest: lungs clear Cardiovascular: normal rate, regular rhythm, no gallop/murmur Abdomen: soft, non tender Extremities: no edema Laboratory Tests Test 03/16/19 11:20 03/17/19 04:00 Arterial Blood pH 7.457 (7.350-7.450) Arterial Blood Partial Pressure CO2 31.0 mmHg (35.0-45.0) L Arterial Blood Partial Pressure O2 69.9 mmHg (75.0-100.0) L Arterial Blood HCO3 21.4 mmol/L (22.0-26.0) L Arterial Blood Oxygen Saturation 94.2 % (95-100) L Arterial Blood Base Excess -1.9 (-2-2) Jonah Test Positive Sodium Level 141 MMOL/L (136-145) Potassium Level 3.8 MMOL/L (3.5-5.1) Chloride Level 108 MMOL/L (98-107) H Carbon Dioxide Level 23 MMOL/L (21-32) Anion Gap 10 mmol/L (5-15) Blood Urea Nitrogen 27 mg/dL (7-18) H Creatinine 0.9 MG/DL (0.55-1.30) Estimat Glomerular Filtration Rate mL/min (>60) Glucose Level 114 MG/DL (74-106) H Calcium Level 8.2 MG/DL (8.5-10.1) L Current Medications Medications (Trade) Dose Ordered Sig/Marcos Route PRN Reason Start Time Stop Time Status Last Admin Dose Admin Acetaminophen (Tylenol) 650 mg Q4HR PRN ORAL Mild Pain/Temp > 100.5 03/14/19 09:00 04/13/19 04:59 03/16/19 08:29 Al Hydroxide/Mg Hydroxide (Mylanta) 30 ml Q4HR PRN GT DYSPESIA 03/14/19 09:00 04/13/19 04:44 Albuterol Sulfate (Proventil) 2.5 mg Q4HRT PRN HHN Shortness of Breath 03/14/19 07:00 03/19/19 04:44 Amlodipine Besylate (Norvasc) 5 mg DAILY GT 03/14/19 09:00 04/13/19 08:59 03/17/19 08:35 Ascorbic Acid (Vitamin C) 500 mg DAILY GT 03/15/19 09:00 04/13/19 08:59 03/17/19 08:35 Bisacodyl (Dulcolax) 10 mg DAILYPRN PRN RECTAL Constipation 03/15/19 09:15 04/14/19 09:14 Brimonidine Tartrate (Alphagan) 1 drop TID BOTH EYES 03/14/19 09:00 04/13/19 08:59 03/17/19 08:35 Docusate Sodium (Colace) 100 mg EVERY 12 HOURS GT 03/15/19 09:00 04/14/19 08:59 03/17/19 08:35 Ferrous Sulfate (Feosol) 300 mg EVERY 8 HOURS GT 03/15/19 14:00 04/14/19 13:59 03/17/19 06:26 Folic Acid (Folate) 1 mg DAILY GT 03/15/19 09:00 04/13/19 08:59 03/17/19 08:35 Heparin Sodium (Porcine) (Heparin 5000 units/ml) 5,000 units EVERY 12 HOURS SUBQ 03/14/19 09:00 04/13/19 08:59 03/14/19 20:39 Lorazepam (Ativan) 1 mg Q4HR PRN ORAL For Anxiety 03/14/19 09:00 03/21/19 04:59 03/15/19 20:47 Magnesium Hydroxide (Mom) 5 ml EVERY 6 HOURS PRN GT Constipation 03/14/19 06:00 04/13/19 04:59 Magnesium Hydroxide (Mom) 30 ml BEDTIME GT 03/15/19 21:00 04/13/19 20:59 03/16/19 21:05 Meropenem 1 gm/ Sodium Chloride 55 ml @ 110 mls/hr Q12HR IVPB 03/15/19 14:00 03/20/19 13:59 03/17/19 08:36 Multivitamins (Multivitamins W/ Minerals 15ml Liquid) 15 ml DAILY GT 03/15/19 09:00 04/14/19 08:59 03/17/19 08:35 Olanzapine (ZyPREXA) 5 mg TID GT 03/15/19 09:00 04/13/19 08:59 03/17/19 08:35 Pantoprazole (Protonix) 40 mg DAILY IVP 03/15/19 09:00 04/14/19 08:59 03/17/19 08:35 Vancomycin HCl (Vanco rx to dose) 1 ea DAILY PRN MISC Per rx protocol 03/16/19 16:00 04/15/19 15:59 Vancomycin HCl 500 mg/Dextrose 110 ml @ 110 mls/hr Q24H IVPB 03/16/19 17:00 03/21/19 16:59 03/16/19 17:19 Zolpidem Tartrate (Ambien) 5 mg BEDTIME PRN ORAL Insomnia 03/14/19 21:00 03/21/19 04:59 03/15/19 20:47 Lindsay Poole MD Mar 17, 2019 11:20
--- NOTE | 2019-03-17 11:55 | NUR ---
RN STARSSIGN MAKER SI: RESP FAILURE, SEPSIS,UTI T. 99.9 HR 82 RR 14 B/P 120/63 VM FIO2 40% BUN 27 IS: MEROPENEM IV PROTONIX STEP DOWN STATUS
[2019-03-17 12:00] VITALS: BP 109/46
--- NOTE | 2019-03-17 12:10 | NUR ---
NURSE NOTES: pt resting, no co pain, no SOB, repositioned, continue monitoring.
[2019-03-17] MEDS: Acetaminophen 500mg (ES) tab ORAL PRN (12:17)
--- NOTE | 2019-03-17 13:17 | Surgery Progress Note ---
Surgery Progress Note Subjective Additional Comments no acute events. comfortable stable Objective Last 24 Hour Vital Signs Date Time Temp Pulse Resp B/P (MAP) Pulse Ox O2 Delivery O2 Flow Rate FiO2 03/17/19 12:47 101.0 03/17/19 12:00 71 03/17/19 12:00 Venturi Mask 8.0 03/17/19 12:00 101.0 78 20 109/46 (67) 97 03/17/19 08:35 82 120/63 03/17/19 08:00 79 03/17/19 08:00 Venturi Mask 8.0 03/17/19 07:58 99.9 82 14 120/63 (82) 95 03/17/19 07:40 94 Venturi Mask 8.0 40 03/17/19 07:38 82 19 95 Venturi Mask 8.0 40 03/17/19 04:00 65 03/17/19 04:00 98.2 70 24 124/52 (76) 95 03/17/19 04:00 Venturi Mask 8.0 03/17/19 00:00 Venturi Mask 8.0 03/17/19 00:00 98.2 68 17 109/55 (73) 95 03/17/19 00:00 67 03/16/19 20:14 65 03/16/19 20:00 99.9 71 26 111/54 (73) 99 03/16/19 20:00 Venturi Mask 8.0 03/16/19 19:30 95 Venturi Mask 8.0 40 03/16/19 19:30 81 18 95 Venturi Mask 8.0 40 03/16/19 16:00 Venturi Mask 8.0 03/16/19 16:00 98.5 61 29 135/62 (86) 92 03/16/19 15:21 63 I&O Intake and Output 03/16/19 03/17/19 19:00 07:00 Intake Total 1838.67 ml 1755 ml Output Total 800 ml 700 ml Balance 1038.67 ml 1055 ml Intake Free Water 200 ml IV Total 878.67 ml 895 ml Tube Feeding 660 ml 660 ml Other 300 ml Output Urine Total 800 ml 700 ml # Bowel Movements 3 Dressing: dry Wound: clean Cardiovascular: RSR Respiratory: clear Abdomen: soft, present bowel sounds Extremities: no cyanosis Laboratory Tests Test 7/10/19 04:00 Sodium Level 141 MMOL/L (136-145) Potassium Level 3.8 MMOL/L (3.5-5.1) Chloride Level 108 MMOL/L (98-107) H Carbon Dioxide Level 23 MMOL/L (21-32) Anion Gap 10 mmol/L (5-15) Blood Urea Nitrogen 27 mg/dL (7-18) H Creatinine 0.9 MG/DL (0.55-1.30) Estimat Glomerular Filtration Rate mL/min (>60) Glucose Level 114 MG/DL (74-106) H Calcium Level 8.2 MG/DL (8.5-10.1) L Plan Problems: (1) Decubitus skin ulcer Assessment & Plan: Pt presented on admission with multiple pressure injuries and contractures. Non-blanchable erythema noted to bridge of nostril. Raised, indurated and erythematous are noted to R scapula. Periwound without erythema or induration.(L)2.5cm x (W)3cm. R trochanter maroon in colour with an area of fluctuance proximally within base of wound. Periwound without erythema or induration.(L)12.5cm x (W)7cm. L trochanter purple centrally with surrounding maroon discoloration and is indurated with marginal erythema. Periwound without induration of fluctuance.(L) 5.5cm x (W)6cm. Scattered areas of non-blanchable erythema without induration/fluctuance noted to sacrum, R and L clefts of buttocks. Stable dry eschar noted distally ,plantar R foot. Periwound without erythema or fluctuance.(L)1.5cm x (W)2cm. R and L heels are pink and blanchable. Tx.Plan: Apply Cavilon Skin Barrier to R scapula.Cover with Optifoam drsg. Change every 7 days and prn. Apply Cavilon Skin Barrier to R and L trochanters. Cover each site with Optifoam drsgs. Change every 7 days and prn. Apply Moisture Barrier Paste to sacrum .Cover sacrum with Optifoam drsg. Change every 3 days and prn. Apply Cavilon Skin Barrier to Plantar R foot. Cover with Optifoam drsg. Change every 7 days and prn. Apply Cavilon Skin Barrier to both heels. Cover each heel with Optifoam drsg. Change every 7 days and prn. APM/LEONARD mattress. Reposition at least every 2hours or as tolerated. Place pillow between knees. Off-load heels with pillow. (2) Renal failure (3) Schizophrenia (4) Sepsis Assessment & Plan: Leukocytosis - trending down anemia - likely chronic as no signs of acute bleed ABG improved UTI on IV Abx cont abx wounds not actively infected (5) Altered mental status (6) HTN (hypertension) (7) ESBL (extended spectrum beta-lactamase) producing bacteria infection (8) HCAP (healthcare-associated pneumonia) (9) Acute metabolic encephalopathy Assessment & Plan: DAILY ESTIMATED NEEDS: Needs based on Underweight, sepsis/ 43.9kg 30-35 kcals/kg 7145-2239 total kcals 1.25-2 g protein/kg 55-88 g total protein 25-30 mL/kg 0872-1388 total fluid mLs NUTRITION DIAGNOSIS: * Swallowing difficulty R/T dysphagia as evidenced by pt is PEG dep. * Increased kcal/prot needs R/T underweight status as evidenced by low BMI per guidelines, noted w/ moderate to severe generalized wasting. ENTERAL NUTRITION RECOMMENDATIONS: Jevity 1.2 @ 55ml/hr x 24 hrs to provide 1320ml, 1584kcal, 73g prot, 1065ml free H2O * Rec to maintain current goal rate * HOB over 30 degrees/ water flush per MD ADDITIONAL RECOMMENDATIONS: * Calibrated bedscale wt, weekly wt monitoring * DC NS IVF and consider D5 IVF or increase water flushes -> Na trending up * Monitor lytes, replete as needed * Pending WC eval: per RN redness @BL hip + R foot KAYLEEN BID, f/up w/ WC eval (10) Urinary tract infection (11) Nephrolithiasis (12) Obstructive uropathy (13) Noncompliance (14) Dehydration (15) Proteinuria (16) ARF (acute renal failure) Alistair Nieves Mar 17, 2019 13:17
[2019-03-17 16:00] VITALS: BP 118/67
--- NOTE | 2019-03-17 19:03 | NUR ---
HAND-OFF: Report given to Iveth PACHECO, no distress at this time..
--- NOTE | 2019-03-17 19:10 | NUR ---
NURSE NOTES: BEDSIDE REPORT RECEIVED FROM JUNIOR CELESTIN. PT IS X1, CONFUSED, VERBAL BUT UNABLE TO FOLLOW CONVERSATION, FOLLOWS SIMPLE COMMANDS. HELP DESK SUPERVISOR SHOWING NSR. ON VENTURI @ 8L, SATING WELL. JEVITY 1.2 @ 55, NO RESIDUAL. SKIN IS CLEAN, DRY, DRESSINGS INTACT. LFA 20G TKO, ASYMPTOMATIC. HARVEY DRAINING, INTACT. BED IS LOCKED IN LOWEST POSITION, SR X3, CALL BOWER W/ IN REACH. WILL CONTINUE TO MONITOR AND FOLLOW W/ PLAN OF CARE.
[2019-03-17 20:00] VITALS: BP 123/78
[2019-03-17] MEDS: Milk of Magnesia 30ml Ud GT SCH (21:15)
[2019-03-18] VITALS: BP 118/58
[2019-03-18 04:00] VITALS: BP 126/55
[2019-03-18] MEDS: Ferrous Sulfate 300 MG/5 ML UDC GT SCH ×2 (05:40→14:00)
[2019-03-18 06:13] LABS: ANION GAP 9 mmol/L (5-15); BLOOD UREA NITROGEN 24 mg/dL (7-18); CALCIUM 8.5 MG/DL (8.5-10.1); CARBON DIOXIDE 24 MMOL/L (21-32); CHLORIDE 110 MMOL/L (98-107); CREATININE 0.9 MG/DL (0.55-1.30); POTASSIUM 3.8 MMOL/L (3.5-5.1); SODIUM 143 MMOL/L (136-145)
--- NOTE | 2019-03-18 07:41 | Nephrology Progress Note ---
Assessment/Plan Status: stable, progressing Assessment/Plan: A/P 1) HELENE- resolved 2) Hypernatremia- resolved 3) Hypokalemia- resolved 4) Sepsis- defer Abx per PCP 5) Resp FL- resolved Subjective Date patient seen: Mar 18, 2019 Time patient seen: 07:41 ROS Limited/Unobtainable: No Allergies: Coded Allergies: MORPHINE (Verified Allergy, Unknown, 07/18/09) Subjective Patient off BiPAP and more coherent and conversant this am Objective Last 24 Hour Vital Signs Date Time Temp Pulse Resp B/P (MAP) Pulse Ox O2 Delivery O2 Flow Rate FiO2 03/18/19 04:00 Venturi Mask 8.0 03/18/19 04:00 99.1 78 26 126/55 (78) 97 03/18/19 03:25 74 03/18/19 00:00 Venturi Mask 8.0 03/18/19 00:00 99.1 70 24 118/58 (78) 98 03/17/19 23:27 64 03/17/19 20:00 Venturi Mask 8.0 03/17/19 20:00 72 03/17/19 20:00 98.1 72 20 123/78 (93) 96 03/17/19 19:58 95 Venturi Mask 8.0 40 03/17/19 19:58 80 18 95 Venturi Mask 8.0 40 03/17/19 16:00 97.7 77 20 118/67 (84) 95 03/17/19 16:00 69 03/17/19 16:00 Venturi Mask 8.0 03/17/19 12:47 101.0 03/17/19 12:00 71 03/17/19 12:00 Venturi Mask 8.0 03/17/19 12:00 101.0 78 20 109/46 (67) 97 03/17/19 08:35 82 120/63 03/17/19 08:00 79 03/17/19 08:00 Venturi Mask 8.0 03/17/19 07:58 99.9 82 14 120/63 (82) 95 Intake and Output 03/17/19 03/18/19 19:00 07:00 Intake Total 865 ml 895 ml Output Total 1300 ml 1000 ml Balance -435 ml -105 ml Intake Free Water 150 ml 180 ml IV Total 55 ml 55 ml Tube Feeding 660 ml 660 ml Output Urine Total 1300 ml 1000 ml # Bowel Movements 2 Laboratory Tests 03/18/19 03:54: Sodium Level 143, Potassium Level 3.8, Chloride Level 110H, Carbon Dioxide Level 24, Anion Gap 9, Blood Urea Nitrogen 24H, Creatinine 0.9, Estimat Glomerular Filtration Rate , Glucose Level 130H, Calcium Level 8.5 Height (Feet): 5 Weight (Pounds): 101 General Appearance: no apparent distress, alert EENT: normal ENT inspection Neck: normal alignment, supple Cardiovascular: normal rate, regular rhythm Respiratory/Chest: lungs clear, normal breath sounds Abdomen: non tender, soft Edema: no edema noted Arm (L), no edema noted Arm (R), no edema noted Leg (L), no edema noted Leg (R), no edema noted Pedal (L), no edema noted Pedal (R), no edema noted Generalized Harsh Elmore MD Mar 18, 2019 07:41
[2019-03-18 08:00] VITALS: BP 137/60
--- NOTE | 2019-03-18 08:15 | NUR ---
NURSE NOTES: received pt in the bed, awake, confused, vital signs stable, no co pain, no SOB, skin warm and dry to touch, multiple decub, tolerate GT feeding well, Bryant catheter with yellow urine, contracted, bed in low position, HOB elevated.
--- NOTE | 2019-03-18 08:23 | Pulmonology Progress Note ---
Assessment/Plan Assessment/Plan IMPRESSION: 1. Respiratory failure, acute. improved 2. Hypoxemia, improved 3. Sepsis likely with leukocytosis. 4. Acute on chronic renal failure. 5. Severe protein-calorie malnutrition. 6. UTI likely. 7. Hypernatremia 8. anemia, likely chronic disease 9. thrombocytopenia PLAN d/w nursing and stable in PRECIOUS off BIPAP and no distress IV antibiotics reviewed cultures reviewed d/w ID IV fluids as per renal follow up lytes and recommend monitor for change and hope to proceed with dc today dc back to snf - hope today impression, plan, and exam edited and reviewed in detail care discussed with RN Subjective ROS Limited/Unobtainable: Yes Allergies: Coded Allergies: MORPHINE (Verified Allergy, Unknown, 07/18/09) Subjective reviewed care and cultures on oxygen NC and comfortable poorly responsive at present but same Objective Last 24 Hour Vital Signs Date Time Temp Pulse Resp B/P (MAP) Pulse Ox O2 Delivery O2 Flow Rate FiO2 03/18/19 08:00 Venturi Mask 8.0 03/18/19 08:00 98.9 77 16 137/60 (85) 88 03/18/19 04:00 Venturi Mask 8.0 03/18/19 04:00 99.1 78 26 126/55 (78) 97 03/18/19 03:25 74 03/18/19 00:00 Venturi Mask 8.0 03/18/19 00:00 99.1 70 24 118/58 (78) 98 03/17/19 23:27 64 03/17/19 20:00 Venturi Mask 8.0 03/17/19 20:00 72 03/17/19 20:00 98.1 72 20 123/78 (93) 96 03/17/19 19:58 95 Venturi Mask 8.0 40 03/17/19 19:58 80 18 95 Venturi Mask 8.0 40 03/17/19 16:00 97.7 77 20 118/67 (84) 95 03/17/19 16:00 69 03/17/19 16:00 Venturi Mask 8.0 03/17/19 12:47 101.0 03/17/19 12:00 71 03/17/19 12:00 Venturi Mask 8.0 03/17/19 12:00 101.0 78 20 109/46 (67) 97 03/17/19 08:35 82 120/63 Intake and Output 03/17/19 03/18/19 19:00 07:00 Intake Total 865 ml 895 ml Output Total 1300 ml 1000 ml Balance -435 ml -105 ml Intake Free Water 150 ml 180 ml IV Total 55 ml 55 ml Tube Feeding 660 ml 660 ml Output Urine Total 1300 ml 1000 ml # Bowel Movements 2 Objective GENERAL: Chronically ill-appearing female. poorly responsive on oxygen same HEENT: Negative. oropharynx improved NECK: Supple. LUNGS: With moderate breath sounds. scattered rhonchi. no wheeze- same CARDIAC: regular rate and rhythm without murmurs, rubs, or gallops. ABDOMEN: Soft, nontender. G-tube in place. no distention. no HSM EXTREMITIES: Noted contractures. No cyanosis or clubbing. No edema. NEURO: poorly responsive reviewed and edited Laboratory Tests 03/18/19 03:54: Sodium Level 143, Potassium Level 3.8, Chloride Level 110H, Carbon Dioxide Level 24, Anion Gap 9, Blood Urea Nitrogen 24H, Creatinine 0.9, Estimat Glomerular Filtration Rate , Glucose Level 130H, Calcium Level 8.5 Current Medications Medications (Trade) Dose Ordered Sig/Marcos Route PRN Reason Start Time Stop Time Status Last Admin Dose Admin Acetaminophen (Tylenol) 650 mg Q4HR PRN ORAL Mild Pain/Temp > 100.5 03/14/19 09:00 04/13/19 04:59 03/17/19 12:17 Al Hydroxide/Mg Hydroxide (Mylanta) 30 ml Q4HR PRN GT DYSPESIA 03/14/19 09:00 04/13/19 04:44 Albuterol Sulfate (Proventil) 2.5 mg Q4HRT PRN HHN Shortness of Breath 03/14/19 07:00 03/19/19 04:44 Amlodipine Besylate (Norvasc) 5 mg DAILY GT 03/14/19 09:00 04/13/19 08:59 03/17/19 08:35 Ascorbic Acid (Vitamin C) 500 mg DAILY GT 03/15/19 09:00 04/13/19 08:59 03/17/19 08:35 Bisacodyl (Dulcolax) 10 mg DAILYPRN PRN RECTAL Constipation 03/15/19 09:15 04/14/19 09:14 Brimonidine Tartrate (Alphagan) 1 drop TID BOTH EYES 03/14/19 09:00 04/13/19 08:59 03/17/19 17:47 Docusate Sodium (Colace) 100 mg EVERY 12 HOURS GT 03/15/19 09:00 04/14/19 08:59 03/17/19 21:15 Ferrous Sulfate (Feosol) 300 mg EVERY 8 HOURS GT 03/15/19 14:00 04/14/19 13:59 03/18/19 05:40 Folic Acid (Folate) 1 mg DAILY GT 03/15/19 09:00 04/13/19 08:59 03/17/19 08:35 Heparin Sodium (Porcine) (Heparin 5000 units/ml) 5,000 units EVERY 12 HOURS SUBQ 03/14/19 09:00 04/13/19 08:59 03/14/19 20:39 Lorazepam (Ativan) 1 mg Q4HR PRN ORAL For Anxiety 03/14/19 09:00 03/21/19 04:59 03/15/19 20:47 Magnesium Hydroxide (Mom) 5 ml EVERY 6 HOURS PRN GT Constipation 03/14/19 06:00 04/13/19 04:59 Magnesium Hydroxide (Mom) 30 ml BEDTIME GT 03/15/19 21:00 04/13/19 20:59 03/17/19 21:15 Meropenem 1 gm/ Sodium Chloride 55 ml @ 110 mls/hr Q12HR IVPB 03/15/19 14:00 03/20/19 13:59 03/17/19 21:15 Multivitamins (Multivitamins W/ Minerals 15ml Liquid) 15 ml DAILY GT 03/15/19 09:00 04/14/19 08:59 03/17/19 08:35 Olanzapine (ZyPREXA) 5 mg TID GT 03/15/19 09:00 04/13/19 08:59 03/17/19 17:46 Pantoprazole (Protonix) 40 mg DAILY IVP 03/15/19 09:00 04/14/19 08:59 03/17/19 08:35 Zolpidem Tartrate (Ambien) 5 mg BEDTIME PRN ORAL Insomnia 03/14/19 21:00 03/21/19 04:59 03/15/19 20:47 Ac Bernal MD Mar 18, 2019 08:23
[2019-03-18] MEDS: Multivitamins W/Minerals 15 ML UDC GT SCH (08:31)
[2019-03-18] MEDS: Pantoprazole Inj IVP SCH (08:31)
[2019-03-18] MEDS: Ascorbic Acid 500mg tab GT SCH (08:32)
[2019-03-18] MEDS: Docusate 100mg/10ml Liq GT SCH (08:32)
[2019-03-18] MEDS: Brimonidine 0.2% Opth Sol BOTH EYES SCH ×2 (08:32→12:41)
[2019-03-18] MEDS: Heparin 5000 units/ml inj SUBQ SCH (08:33)
[2019-03-18] MEDS: Meropenem 1 GM in NS 55 ML IVPB SCH (08:33)
--- NOTE | 2019-03-18 10:31 | Surgery Progress Note ---
Surgery Progress Note Subjective Additional Comments no acute events. comfortable stable. d/c planning Objective Last 24 Hour Vital Signs Date Time Temp Pulse Resp B/P (MAP) Pulse Ox O2 Delivery O2 Flow Rate FiO2 03/18/19 08:32 77 137/60 03/18/19 08:00 Venturi Mask 8.0 03/18/19 08:00 73 03/18/19 08:00 98.9 77 16 137/60 (85) 88 03/18/19 04:00 Venturi Mask 8.0 03/18/19 04:00 99.1 78 26 126/55 (78) 97 03/18/19 03:25 74 03/18/19 00:00 Venturi Mask 8.0 03/18/19 00:00 99.1 70 24 118/58 (78) 98 03/17/19 23:27 64 03/17/19 20:00 Venturi Mask 8.0 03/17/19 20:00 72 03/17/19 20:00 98.1 72 20 123/78 (93) 96 03/17/19 19:58 95 Venturi Mask 8.0 40 03/17/19 19:58 80 18 95 Venturi Mask 8.0 40 03/17/19 16:00 97.7 77 20 118/67 (84) 95 03/17/19 16:00 69 03/17/19 16:00 Venturi Mask 8.0 03/17/19 12:47 101.0 03/17/19 12:00 71 03/17/19 12:00 Venturi Mask 8.0 03/17/19 12:00 101.0 78 20 109/46 (67) 97 I&O Intake and Output 03/17/19 03/18/19 19:00 07:00 Intake Total 865 ml 895 ml Output Total 1300 ml 1000 ml Balance -435 ml -105 ml Intake Free Water 150 ml 180 ml IV Total 55 ml 55 ml Tube Feeding 660 ml 660 ml Output Urine Total 1300 ml 1000 ml # Bowel Movements 2 Dressing: other Wound: other Cardiovascular: RSR Respiratory: clear Abdomen: soft, present bowel sounds, non-distended Extremities: no cyanosis Laboratory Tests Test 03/18/19 03:54 Sodium Level 143 MMOL/L (136-145) Potassium Level 3.8 MMOL/L (3.5-5.1) Chloride Level 110 MMOL/L (98-107) H Carbon Dioxide Level 24 MMOL/L (21-32) Anion Gap 9 mmol/L (5-15) Blood Urea Nitrogen 24 mg/dL (7-18) H Creatinine 0.9 MG/DL (0.55-1.30) Estimat Glomerular Filtration Rate mL/min (>60) Glucose Level 130 MG/DL (74-106) H Calcium Level 8.5 MG/DL (8.5-10.1) Plan Problems: (1) Decubitus skin ulcer Assessment & Plan: Pt presented on admission with multiple pressure injuries and contractures. Non-blanchable erythema noted to bridge of nostril. Raised, indurated and erythematous are noted to R scapula. Periwound without erythema or induration.(L)2.5cm x (W)3cm. R trochanter maroon in colour with an area of fluctuance proximally within base of wound. Periwound without erythema or induration.(L)12.5cm x (W)7cm. L trochanter purple centrally with surrounding maroon discoloration and is indurated with marginal erythema. Periwound without induration of fluctuance.(L) 5.5cm x (W)6cm. Scattered areas of non-blanchable erythema without induration/fluctuance noted to sacrum, R and L clefts of buttocks. Stable dry eschar noted distally ,plantar R foot. Periwound without erythema or fluctuance.(L)1.5cm x (W)2cm. R and L heels are pink and blanchable. Tx.Plan: Apply Cavilon Skin Barrier to R scapula.Cover with Optifoam drsg. Change every 7 days and prn. Apply Cavilon Skin Barrier to R and L trochanters. Cover each site with Optifoam drsgs. Change every 7 days and prn. Apply Moisture Barrier Paste to sacrum .Cover sacrum with Optifoam drsg. Change every 3 days and prn. Apply Cavilon Skin Barrier to Plantar R foot. Cover with Optifoam drsg. Change every 7 days and prn. Apply Cavilon Skin Barrier to both heels. Cover each heel with Optifoam drsg. Change every 7 days and prn. APM/LEONARD mattress. Reposition at least every 2hours or as tolerated. Place pillow between knees. Off-load heels with pillow. continue with above wound care upon discharge (2) Renal failure (3) Schizophrenia (4) Sepsis Assessment & Plan: Leukocytosis - trending down anemia - likely chronic as no signs of acute bleed ABG improved UTI on IV Abx cont abx wounds not actively infected d/c planning (5) Altered mental status (6) HTN (hypertension) (7) ESBL (extended spectrum beta-lactamase) producing bacteria infection (8) HCAP (healthcare-associated pneumonia) (9) Acute metabolic encephalopathy Assessment & Plan: DAILY ESTIMATED NEEDS: Needs based on Underweight, sepsis/ 43.9kg 30-35 kcals/kg 6753-9056 total kcals 1.25-2 g protein/kg 55-88 g total protein 25-30 mL/kg 8458-2909 total fluid mLs NUTRITION DIAGNOSIS: * Swallowing difficulty R/T dysphagia as evidenced by pt is PEG dep. * Increased kcal/prot needs R/T underweight status as evidenced by low BMI per guidelines, noted w/ moderate to severe generalized wasting. ENTERAL NUTRITION RECOMMENDATIONS: Jevity 1.2 @ 55ml/hr x 24 hrs to provide 1320ml, 1584kcal, 73g prot, 1065ml free H2O * Rec to maintain current goal rate * HOB over 30 degrees/ water flush per MD ADDITIONAL RECOMMENDATIONS: * Calibrated bedscale wt, weekly wt monitoring * DC NS IVF and consider D5 IVF or increase water flushes -> Na trending up * Monitor lytes, replete as needed * Pending WC eval: per RN redness @BL hip + R foot KAYLEEN BID, f/up w/ WC eval (10) Urinary tract infection (11) Nephrolithiasis (12) Obstructive uropathy (13) Noncompliance (14) Dehydration (15) Proteinuria (16) ARF (acute renal failure) Alistair Nieves Mar 18, 2019 10:31
--- NOTE | 2019-03-18 10:38 | NUR ---
RD ASSESSMENT & RECOMMENDATIONS SEE CARE ACTIVITY FOR COMPLETE ASSESSMENT DAILY ESTIMATED NEEDS: Needs based on Underweight, sepsis/ 43.9kg 30-35 kcals/kg 0634-2822 total kcals 1.25-2 g protein/kg 55-88 g total protein 25-30 mL/kg 2246-6392 total fluid mLs NUTRITION DIAGNOSIS: * Swallowing difficulty R/T dysphagia as evidenced by pt is PEG dep. * Increased kcal/prot needs R/T underweight status as evidenced by low BMI per guidelines, noted w/ moderate to severe generalized wasting. ENTERAL NUTRITION RECOMMENDATIONS: Jevity 1.2 @ 55ml/hr x 24 hrs to provide 1320ml, 1584kcal, 73g prot, 1065ml free H2O * Rec to maintain current goal rate * HOB over 30 degrees/ water flush per MD ADDITIONAL RECOMMENDATIONS: * Calibrated bedscale wt, weekly wt monitoring * Monitor lytes, replete as needed * Wound care: KAYLEEN BID, maintain Vit C * Monitor BG, need for carb control formula (BG 114-143) -
--- NOTE | 2019-03-18 10:53 | Infectious Diseases Prog Note ---
Assessment/Plan Assessment/Plan A 1. ESBL E.coli UTI 2. + blood culture with coag neg staph likely contaminated 3,. MRSA nasal colonization 4. right nephrolithiasis 5. leucocytosis improving 6. renal failure improving P 1. continue meropenem 2 more days 2. case was D/W RN Subjective ROS Limited/Unobtainable: Yes Constitutional: Reports: no symptoms Neurologic: Reports: confusion Allergies: Coded Allergies: MORPHINE (Verified Allergy, Unknown, 07/18/09) Objective Vital Signs Last 24 Hour Vital Signs Date Time Temp Pulse Resp B/P (MAP) Pulse Ox O2 Delivery O2 Flow Rate FiO2 03/18/19 08:32 77 137/60 03/18/19 08:00 Venturi Mask 8.0 03/18/19 08:00 73 03/18/19 08:00 98.9 77 16 137/60 (85) 88 03/18/19 04:00 Venturi Mask 8.0 03/18/19 04:00 99.1 78 26 126/55 (78) 97 03/18/19 03:25 74 03/18/19 00:00 Venturi Mask 8.0 03/18/19 00:00 99.1 70 24 118/58 (78) 98 03/17/19 23:27 64 03/17/19 20:00 Venturi Mask 8.0 03/17/19 20:00 72 03/17/19 20:00 98.1 72 20 123/78 (93) 96 03/17/19 19:58 95 Venturi Mask 8.0 40 03/17/19 19:58 80 18 95 Venturi Mask 8.0 40 03/17/19 16:00 97.7 77 20 118/67 (84) 95 03/17/19 16:00 69 03/17/19 16:00 Venturi Mask 8.0 03/17/19 12:47 101.0 03/17/19 12:00 71 03/17/19 12:00 Venturi Mask 8.0 03/17/19 12:00 101.0 78 20 109/46 (67) 97 Height (Feet): 5 Weight (Pounds): 101 General Appearance: cachetic HEENT: mucous membranes moist Respiratory/Chest: lungs clear Cardiovascular: normal rate Abdomen: soft, non tender, other - Gt feeding Extremities: no edema Neurologic/Psychiatric: alert, responsive Laboratory Tests Test 03/18/19 03:54 Sodium Level 143 MMOL/L (136-145) Potassium Level 3.8 MMOL/L (3.5-5.1) Chloride Level 110 MMOL/L (98-107) H Carbon Dioxide Level 24 MMOL/L (21-32) Anion Gap 9 mmol/L (5-15) Blood Urea Nitrogen 24 mg/dL (7-18) H Creatinine 0.9 MG/DL (0.55-1.30) Estimat Glomerular Filtration Rate mL/min (>60) Glucose Level 130 MG/DL (74-106) H Calcium Level 8.5 MG/DL (8.5-10.1) Current Medications Medications (Trade) Dose Ordered Sig/Marcos Route PRN Reason Start Time Stop Time Status Last Admin Dose Admin Acetaminophen (Tylenol) 650 mg Q4HR PRN ORAL Mild Pain/Temp > 100.5 03/14/19 09:00 04/13/19 04:59 03/17/19 12:17 Al Hydroxide/Mg Hydroxide (Mylanta) 30 ml Q4HR PRN GT DYSPESIA 03/14/19 09:00 04/13/19 04:44 Albuterol Sulfate (Proventil) 2.5 mg Q4HRT PRN HHN Shortness of Breath 03/14/19 07:00 03/19/19 04:44 Amlodipine Besylate (Norvasc) 5 mg DAILY GT 03/14/19 09:00 04/13/19 08:59 03/18/19 08:32 Ascorbic Acid (Vitamin C) 500 mg DAILY GT 03/15/19 09:00 04/13/19 08:59 03/18/19 08:32 Bisacodyl (Dulcolax) 10 mg DAILYPRN PRN RECTAL Constipation 03/15/19 09:15 04/14/19 09:14 Brimonidine Tartrate (Alphagan) 1 drop TID BOTH EYES 03/14/19 09:00 04/13/19 08:59 03/18/19 08:32 Docusate Sodium (Colace) 100 mg EVERY 12 HOURS GT 03/15/19 09:00 04/14/19 08:59 03/18/19 08:32 Ferrous Sulfate (Feosol) 300 mg EVERY 8 HOURS GT 03/15/19 14:00 04/14/19 13:59 03/18/19 05:40 Folic Acid (Folate) 1 mg DAILY GT 03/15/19 09:00 04/13/19 08:59 03/18/19 08:32 Heparin Sodium (Porcine) (Heparin 5000 units/ml) 5,000 units EVERY 12 HOURS SUBQ 03/14/19 09:00 04/13/19 08:59 03/14/19 20:39 Lorazepam (Ativan) 1 mg Q4HR PRN ORAL For Anxiety 03/14/19 09:00 03/21/19 04:59 03/15/19 20:47 Magnesium Hydroxide (Mom) 5 ml EVERY 6 HOURS PRN GT Constipation 03/14/19 06:00 04/13/19 04:59 Magnesium Hydroxide (Mom) 30 ml BEDTIME GT 03/15/19 21:00 04/13/19 20:59 03/17/19 21:15 Meropenem 1 gm/ Sodium Chloride 55 ml @ 110 mls/hr Q12HR IVPB 03/15/19 14:00 03/20/19 13:59 03/18/19 08:33 Multivitamins (Multivitamins W/ Minerals 15ml Liquid) 15 ml DAILY GT 03/15/19 09:00 04/14/19 08:59 03/18/19 08:31 Olanzapine (ZyPREXA) 5 mg TID GT 03/15/19 09:00 04/13/19 08:59 03/18/19 08:31 Pantoprazole (Protonix) 40 mg DAILY IVP 03/15/19 09:00 04/14/19 08:59 03/18/19 08:31 Zolpidem Tartrate (Ambien) 5 mg BEDTIME PRN ORAL Insomnia 03/14/19 21:00 03/21/19 04:59 03/15/19 20:47 Jacobo Seals MD Mar 18, 2019 10:53
[2019-03-18 12:00] VITALS: BP 123/63
[2019-03-18] MEDS: Acetaminophen 500mg (ES) tab ORAL PRN (12:41)
--- NOTE | 2019-03-18 14:10 | NUR ---
NURSE NOTES: pt discharge to [facility] as ordered, condition stable, report given to JASIEL PACHECO.
--- NOTE | 2019-03-18 15:50 | NUR ---
DISCHARGE PLANNED PATIENT WAS DC TO [facility]
--- NOTE | 2019-03-19 11:46 | Discharge Summary ---
Discharge Summary Discharge Summary _ DATE OF ADMISSION: 03/14/2019 DATE OF DISCHARGE: 03/18/2019 DISCHARGED BY: Dr. Portillo Bernal CONSULTANTS: Dr. Lindsay Scales BRIEF HOSPITAL COURSE: Patient is a 79-year-old female, who recently had been fairly stable at the residential and had prior episodes of sepsis. The patient was recently discharged for urosepsis. The patient was noted to have high fever and appeared to be acutely ill and tachycardic. He was then transferred emergently to [facility]. Patient has history of chronic encephalopathy, renal failure, renal stones, hypertension, G-tube, prior history of UTI, prior pneumonia, and psychosis. On evaluation at the ED, patient was febrile with temperature of 104 F. Blood pressure 118/49, pulse rate 101. She was on nonrebreather mask. Blood work showed WBC elevated to 23. Hemoglobin and hematocrit were stable. Sodium 149, chloride 112. BUN was 90 and creatinine was elevated to 2.0. Lactic acid was elevated to 2.8. LFTs were elevated. Total CK 849. Troponin was 0.157. Urinalysis showed +3 leukocyte esterase, too many to count RBC, too many to count WBC. ABG showed pH 7.4, CO2 36, bicarb 22, base excess of -2.9. Septic work-up was initiated. She was placed on BiPAP. Started empirically on levofloxacin. She was then admitted for evaluation of acute respiratory failure , sepsis with leukocytosis, renal failure, malnutrition, and UTI. She was continued on BiPAP support. She was given breathing treatment. She was given IV hydration. She was continued on IV antibiotics. detention medications were resumed. She was continued on G-tube feedings. She was placed on aspiration precautions. She was given DVT prophylaxis. Behavioral Services Tech was consulted. Patient presented with acute kidney injury secondary from component of prerenal azotemia from volume patient along with inflammatory cytokines from underlying sepsis due to UTI. She was given aggressive IV hydration. Kidney function was monitored. Potassium was added to IVF. She was tapered off BiPAP, however, patient was slowly improving. She was on and off BiPAP. On admission, patient was noted to have multiple pressure injuries and contractures. Surgery was called to evaluate and assist with care. She had a non-blanchable erythema to the bridge of the nostril; and a raised, indurated and erythematous area noted to the right scapula. Right trochanter was maroon in color with area of fluctuance proximally within the base. Left trochanter purple centrally with surrounding maroon discoloration and indurated with marginal erythema. She had scattered areas of non-blanchable erythema without induration/fluctuance noted to the sacrum, right and left cleft of buttocks. There was a stable dry eschar noted distally on the plantar right foot. Right and left heels were pink and blanchable. She was given skin care/wound care she was placed onAPM/LEONARD mattress with frequent repositioning and offloading. Nutrition was optimized. ID was consulted. Urine culture showed growth of gram-negative bacilli. Blood culture did not isolate any growth. Antibiotic was changed to meropenem. She continued to have intermittent episodes of fever. She was eventually taken off BiPAP and was saturating well on Venturi mask. Urine culture showed growth of ESBL E. coli. Blood culture with coagulase- negative staph, possibly contaminant. She was continued on meropenem. Kidney function improved. Hypernatremia and hypokalemia resolved. Patient was afebrile and WBC down trended. She was eventually discharged back to residential. FINAL DIAGNOSES: Acute respiratory failure Hypoxemia, improved Likely sepsis with leukocytosis Acute on chronic renal failure Severe protein calorie malnutrition ESBL E. coli UTI Hypernatremia, resolved Hypokalemia, resolved Anemia, likely chronic disease Thrombocytopenia Multiple pressure injuries as stated above, present on admission Right nephrolithiasis DISPOSITION: Patient was discharged to [facility]. I have been assigned to complete a discharge summary on this account, I was not involved with the patient's management.--TRES Rodas Jacqueline Robles NP Mar 19, 2019 11:46
--- NOTE | 2019-03-19 16:13 | Cardiology Report ---
APPROVED REPORT EKG Measurement Heart [id number] Sinus tachycardia Nonspecific ST abnormality Abnormal ECG
== END 2019-03-18 14:05 | DRG 871 ==
LOC: EDBD 01:40 → EMR 01:58 → 2E 02:56 → EDBEDREQ 03:24 → 2W 05:27
DX: A41.9 Sepsis, unspecified organism (principal); E43 Unspecified severe protein-calorie malnutrition; J18.9 Pneumonia, unspecified organism; J96.01 Acute respiratory failure with hypoxia; G93.41 Metabolic encephalopathy; N17.9 Acute kidney failure, unspecified; E87.0 Hyperosmolality and hypernatremia; N39.0 Urinary tract infection, site not specified; Z68.1 Body mass index [BMI] 19.9 or less, adult; N13.30 Unspecified hydronephrosis; E86.0 Dehydration; B96.20 Unspecified Escherichia coli [E. coli] as the cause of diseases classified elsewhere; Z16.12 Extended spectrum beta lactamase (ESBL) resistance; N20.0 Calculus of kidney; Y95 Nosocomial condition; I12.9 Hypertensive chronic kidney disease with stage 1 through stage 4 chronic kidney disease, or unspecified chronic kidney disease; N18.9 Chronic kidney disease, unspecified; Z93.1 Gastrostomy status; Z22.322 Carrier or suspected carrier of Methicillin resistant Staphylococcus aureus; F20.9 Schizophrenia, unspecified; D69.6 Thrombocytopenia, unspecified
CPT/HCPCS: 36415; 36600; 71045; 80048; 80053; 81003; 82550; 82553; 82803; 82962; 83605; 84484; 85007; 85025; 85610; 85730; 87040; 87081; 87086; 87181; 93005; 94660; 94664; 96361; 96365; 96368; 99291

== ENCOUNTER 2019-04-03 16:24 | Inpatient (IN) | payer MEDICARE, MEDICAID ==
[2019-04-03] VITALS (18 sets, daily range): BP systolic 70–137; BP diastolic 31–115
[~2019-04-03] VITALS: Ht 162.6 cm; Wt 50.3 kg
[~2019-04-03 16:24] MED LIST changes: +DOCUSATE S50 MG/5 ML GT; +ZYPREXA5 MG ORAL
--- NOTE | 2019-04-03 16:40 | NUR ---
ED Nurse Note: pt was brought in by ambulance from [facility] c/o fever. pt temp upon assessment is 106.8F, ermd made aware. pt was reported to be having isolation on esbl urine and was given abx for it. pt has contracture on bilateral lower extremities. noted to have pressure injury on bilateral hips, coccyx area, left elbox and left knee. pt is non verbal. will continue to monitor.
[2019-04-03] MEDS ORDERED: Acetaminophen 650 MG SUPP RECTAL ONE (16:45)
--- NOTE | 2019-04-03 16:50 | NUR ---
ED Nurse Note: pt was medicated as ordered, tylonol given per rectum, ice pack placed on the fore head, bilateral armpits, groin, back of the knee and chest area. ask the charge nurse for cold blanket. iv started on the left ac,m blood drawn and was sent to lab. will continue to monitor.
[2019-04-03 17:14] LABS: ANION GAP 12 mmol/L (5-15); BLOOD UREA NITROGEN 99 mg/dL (7-18); CALCIUM 9.4 MG/DL (8.5-10.1); CARBON DIOXIDE 28 MMOL/L (21-32); CHLORIDE 111 MMOL/L (98-107); CREATININE 2.4 MG/DL (0.55-1.30); POTASSIUM 4.4 MMOL/L (3.5-5.1); SODIUM 151 MMOL/L (136-145)
[2019-04-03 17:24] LABS: BASOPHILS % (AUTO) 0.7 % (0.0-2.0); HEMATOCRIT 42.3 % (37.0-47.0); HEMOGLOBIN 12.9 G/DL (12.0-16.0); LYMPHOCYTES % (AUTO) 32.9 % (20.0-45.0); MEAN CORPUSCULAR VOLUME 90 FL (80-99); MONOCYTES % (AUTO) 2.6 % (1.0-10.0); NEUTROPHILS % (AUTO) 63.8 % (45.0-75.0); PLATELET COUNT 181 K/UL (150-450); RED BLOOD COUNT 4.72 M/UL (4.20-5.40); RED CELL DISTRIBUTION WIDTH 15.6 % (11.6-14.8); WHITE BLOOD COUNT 17.5 K/UL (4.8-10.8)
--- NOTE | 2019-04-03 17:27 | NUR ---
ED Nurse Note: xray on bedside
[2019-04-03 17:29] LABS: ALANINE AMINOTRANSFERASE 273 U/L (12-78); ALBUMIN 2.4 G/DL (3.4-5.0); ALBUMIN/GLOBULIN RATIO 0.3 (1.0-2.7); ALKALINE PHOSPHATASE 42 U/L (46-116); ASPARTATE AMINO TRANSFERASE 212 U/L (15-37); BILIRUBIN,TOTAL 0.5 MG/DL (0.2-1.0); CKMB 3.5 NG/ML (0.0-3.6); CREATINE KINASE 438 U/L (26-308)
--- NOTE | 2019-04-03 17:30 | NUR ---
ED Nurse Note: lab called valderrama pt lactic acid level, and re drawn and was sent to lab.
[2019-04-03 17:47] LABS: APPEARANCE,URINE SLIGHTLY CLOUDY; BILIRUBIN, URINE NEGATIVE (NEGATIVE); GLUCOSE, URINE (UA) NEGATIVE (NEGATIVE); KETONES,URINE NEGATIVE (NEGATIVE); LEUKOCYTE ESTERASE ,URINE 3+ (NEGATIVE); NITRITE,URINE NEGATIVE (NEGATIVE); PH,URINE 5 (4.5-8.0); PROTEIN,URINE 3+ (NEGATIVE); UROBILINOGEN,URINE NORMAL MG/DL (0.0-1.0)
[2019-04-03 17:50] LABS: COLOR,URINE YELLOW
--- NOTE | 2019-04-03 17:56 | Diagnostic Imaging Report ---
EXAM: XR Chest, 1 View CLINICAL HISTORY: AMS TECHNIQUE: Frontal view of the chest. COMPARISON: No relevant prior studies available. FINDINGS: Lungs: Pulmonary hyperinflation and accentuation of pulmonary markings. No constant consolidation. Pleural space: Unremarkable. No pneumothorax. Heart: Unremarkable. No cardiomegaly. Mediastinum: Unremarkable. Bones/joints: Old right rib fractures. IMPRESSION: Pulmonary hyperinflation and accentuation of pulmonary markings. No constant consolidation.
--- NOTE | 2019-04-03 18:00 | NUR ---
ED Nurse Note: ermd noted for the low bp of the pt, pt temp is 98.4, cooling blanket removed.
[2019-04-03] MEDS ORDERED: AMLODIPINE BESYL5 MG GT (18:23)
[2019-04-03] MEDS ORDERED: MILK OF MA400 MG/51 GT (18:23)
[2019-04-03] MEDS ORDERED: ASCORBIC ACID500 MG GT (18:23)
[2019-04-03] MEDS ORDERED: FERROUS SU220 MG/51 GT (18:23)
[2019-04-03] MEDS ORDERED: MULTIVITAMINS1 EAC8 GT (18:23)
[2019-04-03] MEDS ORDERED: BRIMONIDINE TART5 ML BOTH EYES (18:23)
[2019-04-03] MEDS ORDERED: PROTONIX20 MG GT (18:23)
[2019-04-03] MEDS ORDERED: MACRODANTIN50 MG GT (18:23)
[2019-04-03] MEDS ORDERED: Lidocaine 1% MPF 10mg/ml 5ml ONE (18:28)
[2019-04-03] MEDS ORDERED: Lidocaine 1% MPF 10mg/ml 5ml INJ ONE (18:30)
--- NOTE | 2019-04-03 19:00 | NUR ---
ED Nurse Note: ermd on bedside assessing pt for possible central line insertion.
--- NOTE | 2019-04-03 19:05 | NUR ---
HAND-OFF: Report given to Teena carlos on bedside.
[2019-04-03] MEDS ORDERED: Vancomycin 1 GM in NS 275 ML IVPB ONE (19:30)
--- NOTE | 2019-04-03 19:30 | NUR ---
ED Nurse Note: Recieved report from siva nichole to resume caremd at bedside currently attempting central; line placement, pt needs pressors for low b/p, un-successful so I.O line placed, recieved new orders, will start as ordered and stabilize b/p for admission.
--- NOTE | 2019-04-03 19:50 | NUR ---
ED Nurse Note: Pt started on iv norepinephrine, will monitor closely and prepare for icu admisison. pt in bed awake and alert, attempting to speak, pt oral cavity is extremely dried with crusting noted in mouth, swabs collected for admission, pt temp. remains normal, iv sites intact, will continue to closely monitor.
--- NOTE | 2019-04-03 20:04 | Diagnostic Imaging Report ---
EXAM: XR Chest, 1 View CLINICAL HISTORY: VENOUS ACC TECHNIQUE: Frontal view of the chest. COMPARISON: No relevant prior studies available. FINDINGS: Lungs: Pulmonary hyperinflation and accentuation of pulmonary markings. No confluent consolidation or confluent edema. Pleural space: Unremarkable. No pneumothorax. Heart: Unremarkable. No cardiomegaly. Mediastinum: Unremarkable. Bones/joints: Old right rib fractures. IMPRESSION: Pulmonary hyperinflation and accentuation of pulmonary markings. No confluent consolidation or confluent edema.
--- NOTE | 2019-04-03 20:30 | NUR ---
ED Nurse Note: Pt has room for admission, report called to floor nurse siva ortez on unit, pt in bed on monitoring and has levophed infusing as ordered, b/p stable, I.O line intact and patent, med rec completed, photos taken of pt wounds on bilat hips and sacryl area per protocol, pt taken to floor level via acls protocols with er-tech and RN, nad noted during pt transport.
--- NOTE | 2019-04-03 20:55 | NUR ---
NURSE NOTES: Admitted from ED this 79 yo female pt with sepsis; fever. Pt lethargic but moans and opens eyes on painful stimuli. Non verbal, all four extremities contracted, pt assumes a position. Appears pale,thin, undernourished with very dry and flaky lips/mouth. Pt received with Intra osseous IV on left anterior leg with Levophed gtt running at 12mcg/min. NSR on the scope, temp 98.7 axillary, GT noted, currently clamped. Abd soft, flat. No breathing difficulty, pt on Room air with sats at 97-98%. No edema. Noted several DTI's on right and left trochanteric areas, sacral, left elbow otherwise no open wound noted. Incontinent of urine. Will call Dr Bernal for admission orders. Pt noted to have been discharged from this hospital 2 weeks ago for sepsis. Also had hx of MRSA nares and ESBL in the urine.
--- NOTE | 2019-04-03 21:07 | NUR ---
NURSE NOTES: Called and spoke with MD Betancur at this time. Admission orders received and read back at this time
--- NOTE | 2019-04-03 21:23 | Emergency Room Report ---
History of Present Illness General Chief Complaint: Fever Source: Medical Record Present Illness HPI 79-year-old female presents ED for evaluation. [facility] Noted to have fever today. Temp 104. Patient nonverbal at baseline. Unable to provide any additional history at this time. No reported respiratory distress. No reported nausea or vomiting. No other aggravating relieving factors. No other associated symptoms Allergies: Coded Allergies: MORPHINE (Verified Allergy, Unknown, 07/18/09) Patient History Past Medical History: HTN, dementia Past Surgical History: none Pertinent Family History: none Social History: Denies: smoking, alcohol use, drug use Now: No Immunizations: UTD Reviewed Nursing Documentation: PMH: Agreed; PSxH: Agreed Nursing Documentation-PMH Past Medical History: No History, Except For Hx Cardiac Problems: No Hx Hypertension: Yes Hx Pacemaker: No Hx Asthma: No Hx COPD: No Hx Cancer: No Hx Gastrointestinal Problems: Yes Hx Dialysis: No - kidney failure Hx Neurological Problems: Yes Hx Encephalitis: Yes Hx Aphasia: Yes Hx Weakness: Yes Review of Systems All Other Systems: limited Physical Exam Vital Signs Date Time Temp Pulse Resp B/P (MAP) Pulse Ox O2 Delivery O2 Flow Rate FiO2 04/03/19 16:24 104.0 117 30 108/54 (72) 100 Non-Rebreather 15.0 Sp02 EP Interpretation: reviewed, normal General Appearance: cachetic, lethargic Head: normocephalic Eyes: bilateral eye normal inspection, bilateral eye PERRL ENT: normal ENT inspection Neck: normal inspection Respiratory: chest non-tender, lungs clear, normal breath sounds, speaking full sentences Cardiovascular #1: regular rate, rhythm, no edema Gastrointestinal: normal bowel sounds, non tender, soft, non-distended, no guarding, no rebound Rectal: deferred Genitourinary: no CVA tenderness Musculoskeletal: other - contracted extermities Neurologic: other - dementia Psychiatric: other - dementia Skin: other - see nursing skin notes Lymphatic: normal inspection Procedures Critical Care Time Critical Care Time i. I feel this is a highly complex case requiring extensive working including EKG/Rhythm strip, Xray/CT/US, Blood/urine lab work, repeat exams while in ED, and administration of strong opiates/narcotics for pain control, admission to hospital or close patient follow up. Total time: 60 min bedside evaluation and treatment excludes procedures (EKG). Reason for critical care: septic shock Possible complications: hypotension, hypertension, GA, shock, arrhythmias, metabolic acidosis, end organ damage, respiratory failure. Interventions: labs, IVFs, EKG, CXR. antibiotics. 30cc/kg. central line attempt. I/O access. pressors Course: Presenting with fever. Rectal temperature 106. Started on cooling fluids, ice packs. Labs drawn. leukocytosis, sodium elevated, BUN/creatinine elevated, lactic acid elevated, troponin indeterminate, UA positive. By 30 cc/ kg fluid bolus patient remains hypotensive. Attempted central line made but due to patient's contracted position unsuccessful. Intraosseous access placed. Levophed started. BP improved Consultations: nursing staff, EMS, family Performed by: Dr Mcconnell Tolerated well condition = critical j. because of unstable vital signs this patient had a condition that could potentially threaten life or limb. I feel this is a critical patient who required my full attention while patient was considered critical. Total Critical Care Time excluding procedures was greater than 60 minutes Central Line Central Line : Consent: Emergent Central Line Lumen: triple Maximal Sterile Barrier Tech: yes cap, yes mask, yes sterile gown, yes sterile gloves, yes large sterile sheet, yes hand hygiene, yes chlorhexidine prep Central Line Postion: internal jugular (R) Anesthesia: Lidocaine Complications: none Attempts: One Patient Tolerated: Other - unsuccessful Medical Decision Making Diagnostic Impression: Primary Impression: Septic shock Additional Impressions: Renal failure Qualified Codes: N19 - Unspecified kidney failure UTI (urinary tract infection) Qualified Codes: N39.0 - Urinary tract infection, site not specified ER Course Hospital Course 79-year-old female presents ED with fever Differential diagnoses include: Pneumonia, UTI, sepsis, dehydration, GA/ unstable angina Clinical course Patient placed on stretcher. On monitoring and evaluation advisor with stable vitals are ED course. After initial history and physical, I ordered labs, IV fluids, EKG, chest x-ray, blood cultures, UA. Labs - BUN/Cr elevated, noted leukocytosis, troponins indeterminate, UA grossly positive for UTI , lactic elevated EKG - NSR, no acute ischemic changes interpreted by me CXR - no acute process Abx given. 30 cc/kg fluid bolus patient remains hypotensive. Due to patient's cachectic and contracted state it was difficult to place central line. I attempted right IJ but was unsuccessful. Repeat chest x-ray confirms no pneumothorax. I placed intraosseous in the tibia. Pressors started. BP slowly improving. Dr Nieves will evaluate patient for central line access Case discussed with Dr Bernal and they agreed to admit patient to their service for further care and support I feel this is a highly complex case requiring extensive working including EKG/ Rhythm strip, Xray/CT/US, Blood/urine lab work, repeat exams while in ED, and administration of strong opiates/narcotics for pain control, admission to hospital or close patient follow up. Diagnosis - septic shock, renal failure, UTI Patient admitted to ICU in critical condition Labs Test 04/03/19 16:30 04/03/19 17:30 04/03/19 17:55 04/03/19 18:01 White Blood Count 17.5 K/UL (4.8-10.8) Red Blood Count 4.72 M/UL (4.20-5.40) Hemoglobin 12.9 G/DL (12.0-16.0) Hematocrit 42.3 % (37.0-47.0) Mean Corpuscular Volume 90 FL (80-99) Mean Corpuscular Hemoglobin 27.4 PG (27.0-31.0) Mean Corpuscular Hemoglobin Concent 30.5 G/DL (32.0-36.0) Red Cell Distribution Width 15.6 % (11.6-14.8) Platelet Count 181 K/UL (150-450) Mean Platelet Volume 10.9 FL (6.5-10.1) Neutrophils (%) (Auto) 63.8 % (45.0-75.0) Lymphocytes (%) (Auto) 32.9 % (20.0-45.0) Monocytes (%) (Auto) 2.6 % (1.0-10.0) Eosinophils (%) (Auto) 0.0 % (0.0-3.0) Basophils (%) (Auto) 0.7 % (0.0-2.0) Sodium Level 151 MMOL/L (136-145) Potassium Level 4.4 MMOL/L (3.5-5.1) Chloride Level 111 MMOL/L (98-107) Carbon Dioxide Level 28 MMOL/L (21-32) Anion Gap 12 mmol/L (5-15) Blood Urea Nitrogen 99 mg/dL (7-18) Creatinine 2.4 MG/DL (0.55-1.30) Estimat Glomerular Filtration Rate mL/min (>60) Glucose Level 267 MG/DL (74-106) Lactic Acid Level 3.80 mmol/L (0.4-2.0) 3.00 mmol/L (0.66-2.22) Calcium Level 9.4 MG/DL (8.5-10.1) Total Bilirubin 0.5 MG/DL (0.2-1.0) Aspartate Amino Transf (AST/SGOT) 212 U/L (15-37) Alanine Aminotransferase (ALT/SGPT) 273 U/L (12-78) Alkaline Phosphatase 42 U/L (46-116) Total Creatine Kinase 438 U/L (26-308) Creatine Kinase MB 3.5 NG/ML (0.0-3.6) Creatine Kinase MB Relative Index 0.7 Troponin I 0.088 ng/mL (0.000-0.056) Pro-B-Type Natriuretic Peptide 2639 pg/mL (0-125) Total Protein 10.6 G/DL (6.4-8.2) Albumin 2.4 G/DL (3.4-5.0) Globulin 8.2 g/dL Albumin/Globulin Ratio 0.3 (1.0-2.7) Urine Color Yellow Urine Appearance Slightly cloudy Urine pH 5 (4.5-8.0) Urine Specific [place] 1.030 (1.005-1.035) Urine Protein 3+ (NEGATIVE) Urine Glucose (UA) Negative (NEGATIVE) Urine Ketones Negative (NEGATIVE) Urine Blood 4+ (NEGATIVE) Urine Nitrite Negative (NEGATIVE) Urine Bilirubin Negative (NEGATIVE) Urine Urobilinogen Normal MG/DL (0.0-1.0) Urine Leukocyte Esterase 3+ (NEGATIVE) Urine RBC 10-15 /HPF (0 - 2) Urine WBC 20-30 /HPF (0 - 2) Urine Squamous Epithelial Cells Moderate /LPF (NONE/OCC) Urine Bacteria Many /HPF (NONE) Urine Yeast Many /HPF (NONE) Arterial Blood pH 7.448 (7.350-7.450) Arterial Blood Partial Pressure CO2 30.0 mmHg (35.0-45.0) Arterial Blood Partial Pressure O2 141.8 mmHg (75.0-100.0) Arterial Blood HCO3 20.3 mmol/L (22.0-26.0) Arterial Blood Oxygen Saturation 97.9 % (95-100) Arterial Blood Base Excess -2.9 (-2-2) Jonah Test Positive EKG Diagnostic Results Rate: normal Rhythm: NSR ST Segments: no acute changes ASA given to the pt in ED: No Rhythm Strip Diag. Results EP Interpretation: yes Rhythm: NSR, no PVC's, no ectopy Chest X-Ray Diagnostic Results Chest X-Ray Diagnostic Results : Chest X-Ray Ordered: Yes # of Views/Limited/Complete: 1 View Indication: Shortness of Breath EP Interpretation: Yes Interpretation: no consolidation, no effusion, no pneumothorax, no acute cardiopulmonary disease Impression: No acute disease Electronically Signed by: Electronically signed by Javier Mcconnell MD Last Vital Signs Date Time Temp Pulse Resp B/P (MAP) Pulse Ox O2 Delivery O2 Flow Rate FiO2 04/03/19 20:20 98.4 70 17 126/71 100 Room Air 15.0 Status: improved Disposition: ADMITTED INPATIENT Condition: Critical Referrals: NON PHYSICIAN (PCP) Javier Mcconnell MD Apr 03, 2019 21:23
--- NOTE | 2019-04-03 21:26 | Emergency Room Report ---
Sepsis Event Note Evaluation Current Stage of Sepsis: Septic Shock Possible Source: Genitourinary Focused Exam Allergies: Coded Allergies: MORPHINE (Verified Allergy, Unknown, 07/18/09) Date Exam Occurred: Apr 03, 2019 Time Exam Occurred: 16:45 Laboratory Studies Laboratory Tests Test 04/03/19 16:30 04/03/19 17:30 04/03/19 17:55 04/03/19 18:01 White Blood Count 17.5 K/UL (4.8-10.8) H Red Blood Count 4.72 M/UL (4.20-5.40) Hemoglobin 12.9 G/DL (12.0-16.0) Hematocrit 42.3 % (37.0-47.0) Mean Corpuscular Volume 90 FL (80-99) Mean Corpuscular Hemoglobin 27.4 PG (27.0-31.0) Mean Corpuscular Hemoglobin Concent 30.5 G/DL (32.0-36.0) L Red Cell Distribution Width 15.6 % (11.6-14.8) H Platelet Count 181 K/UL (150-450) Mean Platelet Volume 10.9 FL (6.5-10.1) H Neutrophils (%) (Auto) 63.8 % (45.0-75.0) Lymphocytes (%) (Auto) 32.9 % (20.0-45.0) Monocytes (%) (Auto) 2.6 % (1.0-10.0) Eosinophils (%) (Auto) 0.0 % (0.0-3.0) Basophils (%) (Auto) 0.7 % (0.0-2.0) Sodium Level 151 MMOL/L (136-145) H Potassium Level 4.4 MMOL/L (3.5-5.1) Chloride Level 111 MMOL/L (98-107) H Carbon Dioxide Level 28 MMOL/L (21-32) Anion Gap 12 mmol/L (5-15) Blood Urea Nitrogen 99 mg/dL (7-18) H Creatinine 2.4 MG/DL (0.55-1.30) H Estimat Glomerular Filtration Rate mL/min (>60) Glucose Level 267 MG/DL (74-106) H Lactic Acid Level 3.80 mmol/L (0.4-2.0) H 3.00 mmol/L (0.66-2.22) H Calcium Level 9.4 MG/DL (8.5-10.1) Total Bilirubin 0.5 MG/DL (0.2-1.0) Aspartate Amino Transf (AST/SGOT) 212 U/L (15-37) H Alanine Aminotransferase (ALT/SGPT) 273 U/L (12-78) H Alkaline Phosphatase 42 U/L (46-116) L Total Creatine Kinase 438 U/L (26-308) H Creatine Kinase MB 3.5 NG/ML (0.0-3.6) Creatine Kinase MB Relative Index 0.7 Troponin I 0.088 ng/mL (0.000-0.056) Pro-B-Type Natriuretic Peptide 2639 pg/mL (0-125) H Total Protein 10.6 G/DL (6.4-8.2) H Albumin 2.4 G/DL (3.4-5.0) L Globulin 8.2 g/dL Albumin/Globulin Ratio 0.3 (1.0-2.7) L Urine Color Yellow Urine Appearance Slightly cloudy Urine pH 5 (4.5-8.0) Urine Specific [place] 1.030 (1.005-1.035) Urine Protein 3+ (NEGATIVE) H Urine Glucose (UA) Negative (NEGATIVE) Urine Ketones Negative (NEGATIVE) Urine Blood 4+ (NEGATIVE) H Urine Nitrite Negative (NEGATIVE) Urine Bilirubin Negative (NEGATIVE) Urine Urobilinogen Normal MG/DL (0.0-1.0) Urine Leukocyte Esterase 3+ (NEGATIVE) H Urine RBC 10-15 /HPF (0 - 2) H Urine WBC 20-30 /HPF (0 - 2) H Urine Squamous Epithelial Cells Moderate /LPF (NONE/OCC) H Urine Bacteria Many /HPF (NONE) H Urine Yeast Many /HPF (NONE) H Arterial Blood pH 7.448 (7.350-7.450) Arterial Blood Partial Pressure CO2 30.0 mmHg (35.0-45.0) L Arterial Blood Partial Pressure O2 141.8 mmHg (75.0-100.0) H Arterial Blood HCO3 20.3 mmol/L (22.0-26.0) L Arterial Blood Oxygen Saturation 97.9 % (95-100) Arterial Blood Base Excess -2.9 (-2-2) L Jonah Test Positive Vital Signs Last 24 Hour Vital Signs Date Time Temp Pulse Resp B/P (MAP) Pulse Ox O2 Delivery O2 Flow Rate FiO2 04/03/19 20:20 98.4 70 17 126/71 100 Room Air 15.0 04/03/19 20:10 70/31 04/03/19 20:05 98.4 70 17 70/31 100 Room Air 15.0 04/03/19 19:55 70/31 04/03/19 19:50 98.4 70 17 94/43 100 Room Air 15.0 04/03/19 19:17 98.4 74 17 84/37 100 Room Air 15.0 04/03/19 18:00 102.0 90 36 101/80 95 Room Air 15.0 04/03/19 17:38 102.0 04/03/19 16:50 106.8 109 41 137/90 98 Room Air 04/03/19 16:50 109 41 Room Air 15.0 04/03/19 16:24 104.0 117 30 108/54 (72) 100 Non-Rebreather 15.0 Respiratory Exam: Clear Cardiovascular Exam: RRR Capillary Refill: Less Than 2 Seconds Peripheral Pulse: Strong Pulse Location: Radial Skin Exam: Pale Bedside Monitoring Date bedside monitoring occur: Apr 03, 2019 Time bedside monitoring occur: 21:25 Bedside Ultrasound Performed: No Passive Leg Raise/Fluid Bolus: Negative - after 30cc/kg fluid bolus patient remains hypotensive. I/O access and pressors started Javier Mcconnell MD Apr 03, 2019 21:26
[2019-04-03] MEDS ORDERED: Zolpidem 5mg tab GT PRN (21:30)
[2019-04-03] MEDS ORDERED: LORazepam 1mg tab GT PRN (21:30)
--- NOTE | 2019-04-03 21:40 | Consultation ---
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 Patient with fevers, leukocytosis, abnormal labs, lactic acidosis, sepsis. admitted for care and management. unable to place central line in ED and IO placed by ED physician. surgery called to evaluate and assist with care. patient seen, chart reviewed, patient examined. cannot give info as non verbal. hypotensive on pressors. in ICU. Allergies: Coded Allergies: MORPHINE (Verified Allergy, Unknown, 07/18/09) Medication History Scheduled Amlodipine Besylate* (Amlodipine Besylate*), 5 MG GT DAILY, (Reported) Ascorbic Acid* (Ascorbic Acid*), 500 MG GT DAILY, (Reported) Brimonidine Tartrate* (Alphagan*), 1 DROP BOTH EYES TID, (Reported) Docusate Sodium (Docusate Sodium), 10 ML GT BID, (Reported) Ferrous Sulfate (Ferrous Sulfate), 220 MG GT DAILY, (Reported) Magnesium Hydroxide* (Milk Of Magnesia*), 30 ML GT DAILY, (Reported) Meropenem-0.9% Sodium Chloride (Meropenem-0.9% NaCl 500 mg/50), 500 MG IV Q8HR, (Reported) Multivitamin With Minerals (Multivitamins With Minerals*), 1 TAB GT DAILY, ( Reported) Nitrofurantoin Macrocrystal (Macrodantin*), 50 MG GT FOUR TIMES A DAY, (Reported ) Olanzapine* (Zyprexa*), 5 MG GT TID, (Reported) Pantoprazole Sodium (Protonix), 40 MG GT DAILY, (Reported) Scheduled PRN Bisacodyl* (Dulcolax*), 10 MG GT DAILY PRN for Constipation, (Reported) Lorazepam* (Ativan*), 1 MG GT Q4HR PRN for For Anxiety, (Reported) Zolpidem Tartrate* (Ambien*), 5 MG GT BEDTIME PRN for Insomnia, (Reported) Patient History Limited by: medical condition History Provided By: Medical Record, PMD Healthcare decision maker Resuscitation status Advanced Directive on File Past Medical/Surgical History Past Medical/Surgical History: (1) Schizophrenia (2) Sepsis (3) HTN (hypertension) (4) Urinary tract infection (5) Nephrolithiasis (6) Obstructive uropathy (7) Noncompliance (8) Decubitus skin ulcer (9) Altered mental status (10) Septic shock (11) UTI (urinary tract infection) (12) Renal failure Review of Systems ROS Narrative cannot obtain given medical condition Physical Exam General Appearance: mild distress Lines, tubes and drains: other HEENT: atraumatic Neck: normal inspection Respiratory/Chest: decreased breath sounds Cardiovascular/Chest: normal rate Abdomen: soft, no organomegaly, no mass Extremities: other - contracted Skin Exam: warm/dry Neurologic: unresponsiveness Last 24 Hour Vital Signs Date Time Temp Pulse Resp B/P (MAP) Pulse Ox O2 Delivery O2 Flow Rate FiO2 04/03/19 20:20 98.4 70 17 126/71 100 Room Air 15.0 04/03/19 20:10 /04/03/19 20:05 98.4 70 17 100 Room Air 15.0 04/03/19 19:55 /04/03/19 19:50 98.4 70 17 94/43 100 Room Air 15.0 04/03/19 19:17 98.4 74 17 84/37 100 Room Air 15.0 04/03/19 18:00 102.0 90 36 101/80 95 Room Air 15.0 04/03/19 17:38 102.0 04/03/19 16:50 106.8 109 41 137/90 98 Room Air 04/03/19 16:50 109 41 Room Air 15.0 04/03/19 16:24 104.0 117 30 108/54 (72) 100 Non-Rebreather 15.0 Laboratory Tests Test 04/03/19 16:30 04/03/19 17:30 04/03/19 17:55 04/03/19 18:01 White Blood Count 17.5 K/UL (4.8-10.8) H Red Blood Count 4.72 M/UL (4.20-5.40) Hemoglobin 12.9 G/DL (12.0-16.0) Hematocrit 42.3 % (37.0-47.0) Mean Corpuscular Volume 90 FL (80-99) Mean Corpuscular Hemoglobin 27.4 PG (27.0-31.0) Mean Corpuscular Hemoglobin Concent 30.5 G/DL (32.0-36.0) L Red Cell Distribution Width 15.6 % (11.6-14.8) H Platelet Count 181 K/UL (150-450) Mean Platelet Volume 10.9 FL (6.5-10.1) H Neutrophils (%) (Auto) 63.8 % (45.0-75.0) Lymphocytes (%) (Auto) 32.9 % (20.0-45.0) Monocytes (%) (Auto) 2.6 % (1.0-10.0) Eosinophils (%) (Auto) 0.0 % (0.0-3.0) Basophils (%) (Auto) 0.7 % (0.0-2.0) Sodium Level 151 MMOL/L (136-145) H Potassium Level 4.4 MMOL/L (3.5-5.1) Chloride Level 111 MMOL/L (98-107) H Carbon Dioxide Level 28 MMOL/L (21-32) Anion Gap 12 mmol/L (5-15) Blood Urea Nitrogen 99 mg/dL (7-18) H Creatinine 2.4 MG/DL (0.55-1.30) H Estimat Glomerular Filtration Rate mL/min (>60) Glucose Level 267 MG/DL (74-106) H Lactic Acid Level 3.80 mmol/L (0.4-2.0) H 3.00 mmol/L (0.66-2.22) H Calcium Level 9.4 MG/DL (8.5-10.1) Total Bilirubin 0.5 MG/DL (0.2-1.0) Aspartate Amino Transf (AST/SGOT) 212 U/L (15-37) H Alanine Aminotransferase (ALT/SGPT) 273 U/L (12-78) H Alkaline Phosphatase 42 U/L (46-116) L Total Creatine Kinase 438 U/L (26-308) H Creatine Kinase MB 3.5 NG/ML (0.0-3.6) Creatine Kinase MB Relative Index 0.7 Troponin I 0.088 ng/mL (0.000-0.056) Pro-B-Type Natriuretic Peptide 2639 pg/mL (0-125) H Total Protein 10.6 G/DL (6.4-8.2) H Albumin 2.4 G/DL (3.4-5.0) L Globulin 8.2 g/dL Albumin/Globulin Ratio 0.3 (1.0-2.7) L Urine Color Yellow Urine Appearance Slightly cloudy Urine pH 5 (4.5-8.0) Urine Specific [place] 1.030 (1.005-1.035) Urine Protein 3+ (NEGATIVE) H Urine Glucose (UA) Negative (NEGATIVE) Urine Ketones Negative (NEGATIVE) Urine Blood 4+ (NEGATIVE) H Urine Nitrite Negative (NEGATIVE) Urine Bilirubin Negative (NEGATIVE) Urine Urobilinogen Normal MG/DL (0.0-1.0) Urine Leukocyte Esterase 3+ (NEGATIVE) H Urine RBC 10-15 /HPF (0 - 2) H Urine WBC 20-30 /HPF (0 - 2) H Urine Squamous Epithelial Cells Moderate /LPF (NONE/OCC) H Urine Bacteria Many /HPF (NONE) H Urine Yeast Many /HPF (NONE) H Arterial Blood pH 7.448 (7.350-7.450) Arterial Blood Partial Pressure CO2 30.0 mmHg (35.0-45.0) L Arterial Blood Partial Pressure O2 141.8 mmHg (75.0-100.0) H Arterial Blood HCO3 20.3 mmol/L (22.0-26.0) L Arterial Blood Oxygen Saturation 97.9 % (95-100) Arterial Blood Base Excess -2.9 (-2-2) L Jonah Test Positive Height (Feet): 5 Height (Inches): 4.00 Weight (Pounds): 100 Medications Current Medications Medications (Trade) Dose Ordered Sig/Marcos Route PRN Reason Start Time Stop Time Status Last Admin Dose Admin Amlodipine Besylate (Norvasc) 5 mg DAILY GT 04/04/19 09:00 05/04/19 08:59 Ascorbic Acid (Vitamin C) 500 mg DAILY GT 04/04/19 09:00 05/04/19 08:59 Bisacodyl (Dulcolax) 10 mg PRN PRN RECTAL Constipation 04/03/19 21:30 05/03/19 21:29 Brimonidine Tartrate (Alphagan) 1 drop TID BOTH EYES 04/04/19 09:00 05/04/19 08:59 Docusate Sodium (Colace) 100 mg BID GT 04/04/19 09:00 05/04/19 08:59 Lorazepam (Ativan) 1 mg Q4HR PRN GT For Anxiety 04/03/19 21:30 04/10/19 21:29 Magnesium Hydroxide (Mom) 30 ml DAILY GT 04/04/19 09:00 05/04/19 08:59 Multivitamins Therapeutic (Therapeutic Multivitamin) 1 ea DAILY ORAL 04/04/19 09:00 05/04/19 08:59 Nitrofurantoin (Macrodantin) 50 mg FOUR TIMES A DAY GT 04/04/19 09:00 04/11/19 08:59 UNV Norepinephrine Bitartrate 8 mg/ Dextrose 250 ml @ 0 mls/hr Q24H IV 04/03/19 21:15 05/03/19 21:14 Olanzapine (ZyPREXA) 5 mg TID GT 04/04/19 09:00 05/04/19 08:59 Piperacillin Sod/ Tazobactam Sod 3.375 gm/Sodium Chloride 110 ml @ 27.5 mls/hr Q12H IVPB 04/03/19 23:00 04/10/19 22:59 Sodium Chloride 1,000 ml @ 100 mls/hr Q10H IV 04/03/19 21:30 05/03/19 21:29 Vancomycin HCl (Vanco rx to dose) 1 ea DAILY PRN MISC Per rx protocol 04/03/19 21:30 05/03/19 21:29 Zolpidem Tartrate (Ambien) 5 mg BEDTIME PRN GT Insomnia 04/03/19 21:30 04/10/19 21:29 Assessment/Plan Problem List: (1) Abnormal LFTs Assessment & Plan: likely related to hypotension and sepsis will trend US when stable ICD Codes: R94.5 - Abnormal results of liver function studies SNOMED: 645331195 (2) Septic shock Assessment & Plan: 79F in septic shock, hypotensive, on pressors, leukocytosis , lactic acidosis unable to obtain peripheral line has IO but not safe in elderly in her condition needs central venous access. see note IV abx micro pending send labs iv fluids will follow with recs ICD Codes: A41.9 - Sepsis, unspecified organism; R65.21 - Severe sepsis with septic shock SNOMED: 34339419 (3) Decubitus skin ulcer ICD Codes: L89.90 - Pressure ulcer of unspecified site, unspecified stage SNOMED: 140879953 Alistair Nieves Apr 03, 2019 21:40
--- NOTE | 2019-04-03 21:44 | Operative Note - PDOC ---
Operative Note Operative Note Date of Operation/Procedure: Apr 03, 2019 Pre-op Diagnosis: sepsis hypotension on pressors shock Procedure: left subclavian central venous catheter insertion Post-op Diagnosis: same as pre-op Surgeon: kinga Anesthesia: local Specimen: none Complications: none Condition: unstable Estimated Blood Loss: minimal Drains: none Implant(s) used?: No Indications for Procedure 79F septic shock without venous access. emergency IO and now on pressors and needs meds and fluids. central venous access indicated and recommended emergently. unable to obtain consent given current medical condition and procedure emergency. Description of Procedure patient with severe contractures. in ICU. with staff made as comfortable as possible. left chest wall prepped and draped in standard surgical fashion. local infiltrated. left subclavian vein cannulated with finder needle. guidewire place and needle removed. good venous flow as noted. skin incision was made around guidewire. dilator used. triple lumen catheter placed over guidewire without complication. all three ports aspirated and flushed without difficulty. guidewire discarded. line sutured in place. dressings applied. patient tolerated well. x ray ordered. Alistair Nieves Apr 03, 2019 21:44
--- NOTE | 2019-04-03 22:00 | NUR ---
NURSE NOTES: Dr Nieves here and inserted a central line on left subclavian area.Chest Xray taken post and was read by MD himself and OK to use. Levophed gtt resumed via central line.
--- NOTE | 2019-04-03 22:14 | Diagnostic Imaging Report ---
EXAM: XR Chest, 1 View CLINICAL HISTORY: LINE TECHNIQUE: Frontal view of the chest. COMPARISON: No relevant prior studies available. FINDINGS: Lungs: Pulmonary hyperinflation and accentuation of pulmonary markings. No confluent consolidation or confluent edema. Pleural space: Left subclavian central line in the SVC. No pneumothorax. Heart: Unremarkable. No cardiomegaly. Mediastinum: Unremarkable. Bones/joints: Old right rib fractures. IMPRESSION: Left subclavian central line in the SVC. No pneumothorax.
[2019-04-03] MEDS ORDERED: Piperacillin/Tazobactam 3.375 GM in NS 110 ML IVPB SCH (23:00)
[2019-04-04] VITALS (70 sets, daily range): BP systolic 77–140; BP diastolic 31–115
--- NOTE | 2019-04-04 | NUR ---
NURSE NOTES: IO IV site DC'd, pressure dressing applied. GTF with Jevity 1.2 started at 50ml/h. Temp 99.2 axillary. FC intact draining cldy, dark chrystal urine.. Pt asleep; Levophed gtt at 10mcg/min
--- NOTE | 2019-04-04 02:00 | NUR ---
NURSE NOTES: Sleeping, no distress, no SOB, sats 96% on RA. Levophed gtt continues at 10mcg/min
--- NOTE | 2019-04-04 04:00 | NUR ---
NURSE NOTES: Temp 99.6 axillary; spongebath given. No SOB noted. NSR on the scope. UOP 70-100ml/h. Left SC TLC intact. Levophed gtt continues at 10mcg/min.Continue to monitor
[2019-04-04 06:05] LABS: HEMATOCRIT 27.4 % (37.0-47.0); HEMOGLOBIN 8.6 G/DL (12.0-16.0); MEAN CORPUSCULAR VOLUME 90 FL (80-99); PLATELET COUNT 107 K/UL (150-450); RED BLOOD COUNT 3.06 M/UL (4.20-5.40); RED CELL DISTRIBUTION WIDTH 16.2 % (11.6-14.8); WHITE BLOOD COUNT 18.8 K/UL (4.8-10.8)
[2019-04-04 07:05] LABS: ANION GAP 10 mmol/L (5-15); BLOOD UREA NITROGEN 79 mg/dL (7-18); CALCIUM 7.6 MG/DL (8.5-10.1); CARBON DIOXIDE 23 MMOL/L (21-32); CHLORIDE 123 MMOL/L (98-107); CREATININE 1.5 MG/DL (0.55-1.30); POTASSIUM 2.9 MMOL/L (3.5-5.1); SODIUM 156 MMOL/L (136-145)
--- NOTE | 2019-04-04 07:24 | NUR ---
HAND-OFF: Report given to Joe PACHECO.
--- NOTE | 2019-04-04 07:25 | NUR ---
NURSE NOTES: Received report from JUNIOR Galaviz. Patient is asleep and responsive to painful stimuli, non-verbal. SR on monitor. O2 SAT 100% with room air. Gtube is intact, clean and running with Jevity 1.2 50ml/hr. Left subclavian central line intact, clean and running with levophed drip @ 10mcg/min=18.75ml/hr and NS 100ml/hr. BP is stable at this time. Call light placed in easy reach. Will continue plan of care.
[2019-04-04] MEDS: Milk of Magnesia 30ml Ud GT SCH (08:17)
[2019-04-04] MEDS: Docusate 100mg/10ml Liq GT SCH ×2 (08:17→18:08)
[2019-04-04] MEDS: Multivitamin w/Minerals tab ORAL SCH (08:17)
[2019-04-04] MEDS: Brimonidine 0.2% Opth Sol BOTH EYES SCH ×3 (08:17→18:08)
[2019-04-04] MEDS: Ascorbic Acid 500mg tab GT SCH (08:17)
[2019-04-04] MEDS: Heparin 5000 units/ml inj SUBQ SCH ×2 (08:18→20:00)
[2019-04-04] MEDS: Acetaminophen 650mg/20.3ml GT PRN (08:23)
[2019-04-04] MEDS ORDERED: Vancomycin 750mg/NS 275ml IVPB ONE ×2 (09:00)
[2019-04-04] MEDS ORDERED: Nitrofurantoin Macrocrystal 50mg cap GT SCH (09:00)
--- NOTE | 2019-04-04 09:08 | NUR ---
RD ASSESSMENT & RECOMMENDATIONS SEE CARE ACTIVITY FOR COMPLETE ASSESSMENT DAILY ESTIMATED NEEDS: Needs based on Underweight, sepsis/ 40g 30-35 kcals/kg 1667-8661 total kcals 1.25-2 g protein/kg 50-80 g total protein 25-30 mL/kg 0725-8801 total fluid mLs NUTRITION DIAGNOSIS: * Swallowing difficulty R/T dysphagia as evidenced by pt is PEG dep. * Increased kcal/prot needs R/T underweight status,sepsis, as evidenced by low BMI per guidelines, noted w/ moderate to severe generalized wasting, elev WBC, on pressor support. (CURRENT TF: Jevity 1.2 @ 50ml/hr x 24 hrs) ENTERAL NUTRITION RECOMMENDATIONS: Glucerna 1.2 @ 50ml/hr x 24 hrs to provide 1200ml, 1440kcal, 72g prot, 966ml free H2O * Rec TF change for glycemic control- pt is septic w/ hyperglycemia * REC TROPHIC FEEDS WHILE ON PRESSOR SUPPORT-> GLUCERNA 1.2 @5-10ML/HR * * HOB over 30 degrees/ water flush per MD ------ ADDITIONAL RECOMMENDATIONS: * Calibrated bedscale wt + weekly wt monitoring Bed scale: 88.7lbs EMR wt: 76lbs Recent adm wt: 96.6lbs * Wound care: KAYLEEN BID, f/up w/ WC eval * REC CARB CONTROL FORMULA FOR HYPERGLYCEMIA * TROPHIC FEEDS WHILE ON PRESSOR SUPPORT (5-10ml/hr) - -
--- NOTE | 2019-04-04 09:51 | NUR ---
NURSE NOTES: Notified Dr. Bernal regarding electrolyte and new orders carried out.
--- NOTE | 2019-04-04 10:26 | NUR ---
HAND-OFF: Report given to JUNIOR Roa. Endorsed plan of care.
--- NOTE | 2019-04-04 10:30 | NUR ---
NURSE NOTES: Received report from Aminta PACHECO. Pt resting, responsive to light pain. pupils 2mm sluggish. AAOX1. Pt is on R.A sating 99%. Bilateral rhonchi on auscultation. febrile 101.3, will establish cooling measures. threat monitoring analyst HR 61, BP 1104/45, RR24. Cap refill <3sec. No edema noted. Peripheral IV access on FA 20G. LT subclav TLC, patent/intact. Infusing 1/2NS @125ml/hr. levo going @ 120mcg/kg/min. Bryant catheter is in place, draining yellow urine. PEG intact, very sluggish, will flush for patency. Abdomen is flat, soft, hypoactive bowel sounds. 1 BM, brown, moderate amount, firm coco, greenish. Skin-see assessment. Weak peripheral pulses palpated. Pt is currently in semi-baltazar's position, bed locked with side rails up X2, lowest position and call light within reach. contact isolation. Will continue to monitor pt and follow plan of care and protocol. Addendum: 04/04/19 at 1648 by Janina Hough RN levo at 10mcg/kg
--- NOTE | 2019-04-04 12:00 | NUR ---
NURSE NOTES: Pt awake. confused. likes playing with FlexEl towel. AAOX1. Pt is on R.A sating 99%. Bilateral rhonchi on auscultation. febrile 100.9, cooling measures in place. threat monitoring analyst HR 70, BP 104/76, RR28.No edema noted. Peripheral IV access on FA 20G. LT subclav TLC, patent/intact. Infusing 1/2NS @125ml/hr. levo going @ 10mcg/kg/min. Bryant catheter is in place, draining yellow urine. PEG intact,clamped and NPO. Abdomen is flat, soft, hypoactive bowel sounds. Skin-see assessment. Weak peripheral pulses palpated. Pt is currently in semi-baltazar's position, bed locked with side rails up X2, lowest position and call light within reach. contact isolation. Will continue to monitor pt and follow plan of care and protocol.
[2019-04-04] MEDS ORDERED: D5W w/KCl 20mEq 1,000 ML IV SCH (13:00)
--- NOTE | 2019-04-04 14:06 | Surgery Progress Note ---
Surgery Progress Note Subjective Procedure Performed left subclavian central venous catheter insertion Additional Comments in ICU ill appearing leukocytosis on pressors but weaning down labs abnormal as below Objective Last 24 Hour Vital Signs Date Time Temp Pulse Resp B/P (MAP) Pulse Ox O2 Delivery O2 Flow Rate FiO2 04/04/19 13:30 63 20 110/45 (66) 99 04/04/19 13:00 64 22 99/54 (69) 99 04/04/19 12:30 65 23 111/44 (66) 99 04/04/19 12:00 100.9 70 28 104/76 (85) 98 04/04/19 12:00 Room Air 04/04/19 12:00 68 04/04/19 11:30 66 26 110/47 (68) 99 04/04/19 11:00 101.3 61 24 104/45 (64) 99 04/04/19 10:15 63 27 100/41 (60) 99 04/04/19 10:00 63 27 106/45 (65) 99 04/04/19 10:00 106/45 04/04/19 09:45 65 26 111/46 (67) 99 04/04/19 09:30 62 26 100/42 (61) 99 04/04/19 09:15 62 25 103/43 (63) 99 04/04/19 09:00 105/43 04/04/19 09:00 100.6 62 26 105/43 (63) 99 04/04/19 08:53 100.7 04/04/19 08:45 63 27 102/45 (64) 99 04/04/19 08:30 64 28 107/43 (64) 99 04/04/19 08:17 63 105/42 04/04/19 08:15 63 28 99/45 (63) 99 04/04/19 08:00 Room Air 04/04/19 08:00 105/42 04/04/19 08:00 101.4 64 28 105/42 (63) 99 04/04/19 08:00 63 04/04/19 07:45 65 26 107/44 (65) 98 04/04/19 07:30 65 24 102/38 (59) 99 04/04/19 07:15 69 26 117/41 (66) 99 04/04/19 07:00 66 28 105/41 (62) 98 04/04/19 07:00 105/41 04/04/19 06:45 65 26 107/41 (63) 98 04/04/19 06:30 66 26 109/42 (64) 97 04/04/19 06:15 67 21 114/41 (65) 99 04/04/19 06:00 108/73 04/04/19 06:00 66 23 108/42 (64) 98 04/04/19 05:47 68 27 108/53 (71) 98 04/04/19 05:45 68 27 78/63 (68) 98 04/04/19 05:30 68 24 118/50 (72) 98 04/04/19 05:15 70 25 102/60 (74) 99 04/04/19 05:00 107/45 04/04/19 05:00 67 24 107/45 (65) 99 04/04/19 04:45 81 21 116/48 (70) 98 04/04/19 04:30 67 23 111/51 (71) 99 04/04/19 04:15 68 20 97/74 (82) 98 04/04/19 04:00 68 04/04/19 04:00 99.6 66 25 115/71 (86) 98 04/04/19 04:00 115/71 04/04/19 04:00 Room Air 04/04/19 03:45 67 23 94/55 (68) 98 04/04/19 03:30 67 25 108/45 (66) 99 04/04/19 03:15 66 23 110/56 (74) 99 04/04/19 03:00 116/53 04/04/19 03:00 64 20 116/63 (80) 99 04/04/19 02:45 73 19 109/49 (69) 97 04/04/19 02:30 63 22 113/47 (69) 99 04/04/19 02:15 63 22 105/46 (65) 98 04/04/19 02:00 123/44 04/04/19 02:00 69 24 123/44 (70) 98 04/04/19 01:45 74 21 115/47 (69) 98 04/04/19 01:30 70 20 118/49 (72) 95 04/04/19 01:15 63 20 110/47 (68) 98 04/04/19 01:00 66 19 112/51 (71) 97 04/04/19 01:00 112/51 04/04/19 00:45 67 17 124/50 (74) 99 04/04/19 00:30 67 19 103/44 (63) 98 04/04/19 00:15 64 17 113/42 (65) 97 04/04/19 00:00 Room Air 04/04/19 00:00 65 04/04/19 00:00 109/44 04/04/19 00:00 99.2 65 18 109/44 (65) 97 04/03/19 23:45 66 18 114/45 (68) 96 04/03/19 23:30 64 19 98/44 (62) 98 04/03/19 23:15 81 17 102/49 (66) 97 04/03/19 23:00 86 18 97/44 (61) 97 04/03/19 23:00 106/43 04/03/19 22:45 65 18 93/42 (59) 98 04/03/19 22:32 91/44 04/03/19 22:30 76 19 96/69 (78) 99 04/03/19 22:15 70 18 91/44 (60) 98 04/03/19 22:00 66 18 106/43 (64) 100 04/03/19 21:45 69 16 128/47 (74) 100 04/03/19 21:30 70 20 118/55 (76) 99 04/03/19 21:15 73 21 132/115 (121) 100 04/03/19 21:00 Room Air 04/03/19 21:00 98.7 73 21 113/70 (84) 100 04/03/19 20:35 98.4 70 17 126/71 100 Room Air 15.0 04/03/19 20:20 98.4 70 17 126/71 100 Room Air 15.0 04/03/19 20:10 70/31 04/03/19 20:05 98.4 70 17 70/31 100 Room Air 15.0 04/03/19 19:55 70/31 04/03/19 19:50 98.4 70 17 94/43 100 Room Air 15.0 04/03/19 19:17 98.4 74 17 84/37 100 Room Air 15.0 04/03/19 18:00 102.0 90 36 101/80 95 Room Air 15.0 04/03/19 17:38 102.0 04/03/19 16:50 106.8 109 41 137/90 98 Room Air 04/03/19 16:50 109 41 Room Air 15.0 04/03/19 16:24 104.0 117 30 108/54 (72) 100 Non-Rebreather 15.0 I&O Intake and Output 04/03/19 04/04/19 18:59 06:59 Intake Total 1000 ml 2410.00 ml Output Total 670 ml Balance 1000 ml 1740.00 ml Intake IV Total 1000 ml 2060.00 ml Tube Feeding 350 ml Output Urine Total 670 ml Dressing: dry Wound: clean Cardiovascular: RSR Respiratory: decreased breath sounds Abdomen: soft, non-distended, decreased bowel sounds Extremities: no cyanosis, other Laboratory Tests Test 04/03/19 16:30 04/03/19 17:30 04/03/19 17:55 04/03/19 18:01 White Blood Count 17.5 K/UL (4.8-10.8) H Red Blood Count 4.72 M/UL (4.20-5.40) Hemoglobin 12.9 G/DL (12.0-16.0) Hematocrit 42.3 % (37.0-47.0) Mean Corpuscular Volume 90 FL (80-99) Mean Corpuscular Hemoglobin 27.4 PG (27.0-31.0) Mean Corpuscular Hemoglobin Concent 30.5 G/DL (32.0-36.0) L Red Cell Distribution Width 15.6 % (11.6-14.8) H Platelet Count 181 K/UL (150-450) Mean Platelet Volume 10.9 FL (6.5-10.1) H Neutrophils (%) (Auto) 63.8 % (45.0-75.0) Lymphocytes (%) (Auto) 32.9 % (20.0-45.0) Monocytes (%) (Auto) 2.6 % (1.0-10.0) Eosinophils (%) (Auto) 0.0 % (0.0-3.0) Basophils (%) (Auto) 0.7 % (0.0-2.0) Sodium Level 151 MMOL/L (136-145) H Potassium Level 4.4 MMOL/L (3.5-5.1) Chloride Level 111 MMOL/L (98-107) H Carbon Dioxide Level 28 MMOL/L (21-32) Anion Gap 12 mmol/L (5-15) Blood Urea Nitrogen 99 mg/dL (7-18) H Creatinine 2.4 MG/DL (0.55-1.30) H Estimat Glomerular Filtration Rate mL/min (>60) Glucose Level 267 MG/DL (74-106) H Lactic Acid Level 3.80 mmol/L (0.4-2.0) H 3.00 mmol/L (0.66-2.22) H Calcium Level 9.4 MG/DL (8.5-10.1) Total Bilirubin 0.5 MG/DL (0.2-1.0) Aspartate Amino Transf (AST/SGOT) 212 U/L (15-37) H Alanine Aminotransferase (ALT/SGPT) 273 U/L (12-78) H Alkaline Phosphatase 42 U/L (46-116) L Total Creatine Kinase 438 U/L (26-308) H Creatine Kinase MB 3.5 NG/ML (0.0-3.6) Creatine Kinase MB Relative Index 0.7 Troponin I 0.088 ng/mL (0.000-0.056) Pro-B-Type Natriuretic Peptide 2639 pg/mL (0-125) H Total Protein 10.6 G/DL (6.4-8.2) H Albumin 2.4 G/DL (3.4-5.0) L Globulin 8.2 g/dL Albumin/Globulin Ratio 0.3 (1.0-2.7) L Urine Color Yellow Urine Appearance Slightly cloudy Urine pH 5 (4.5-8.0) Urine Specific Stearns 1.030 (1.005-1.035) Urine Protein 3+ (NEGATIVE) H Urine Glucose (UA) Negative (NEGATIVE) Urine Ketones Negative (NEGATIVE) Urine Blood 4+ (NEGATIVE) H Urine Nitrite Negative (NEGATIVE) Urine Bilirubin Negative (NEGATIVE) Urine Urobilinogen Normal MG/DL (0.0-1.0) Urine Leukocyte Esterase 3+ (NEGATIVE) H Urine RBC 10-15 /HPF (0 - 2) H Urine WBC 20-30 /HPF (0 - 2) H Urine Squamous Epithelial Cells Moderate /LPF (NONE/OCC) H Urine Bacteria Many /HPF (NONE) H Urine Yeast Many /HPF (NONE) H Arterial Blood pH 7.448 (7.350-7.450) Arterial Blood Partial Pressure CO2 30.0 mmHg (35.0-45.0) L Arterial Blood Partial Pressure O2 141.8 mmHg (75.0-100.0) H Arterial Blood HCO3 20.3 mmol/L (22.0-26.0) L Arterial Blood Oxygen Saturation 97.9 % (95-100) Arterial Blood Base Excess -2.9 (-2-2) L Jonah Test Positive Test 04/04/19 03:10 04/04/19 05:00 Lactic Acid Level 1.40 mmol/L (0.4-2.0) White Blood Count 18.8 K/UL (4.8-10.8) H Red Blood Count 3.06 M/UL (4.20-5.40) L Hemoglobin 8.6 G/DL (12.0-16.0) #L Hematocrit 27.4 % (37.0-47.0) #L Mean Corpuscular Volume 90 FL (80-99) Mean Corpuscular Hemoglobin 28.1 PG (27.0-31.0) Mean Corpuscular Hemoglobin Concent 31.4 G/DL (32.0-36.0) L Red Cell Distribution Width 16.2 % (11.6-14.8) H Platelet Count 107 K/UL (150-450) L Mean Platelet Volume 10.3 FL (6.5-10.1) H Neutrophils (%) (Auto) % (45.0-75.0) Lymphocytes (%) (Auto) % (20.0-45.0) Monocytes (%) (Auto) % (1.0-10.0) Eosinophils (%) (Auto) % (0.0-3.0) Basophils (%) (Auto) % (0.0-2.0) Differential Total Cells Counted 100 Neutrophils % (Manual) 37 % (45-75) L Lymphocytes % (Manual) 54 % (20-45) H Monocytes % (Manual) 9 % (1-10) Eosinophils % (Manual) 0 % (0-3) Basophils % (Manual) 0 % (0-2) Band Neutrophils 0 % (0-8) Platelet Estimate Decreased L Platelet Morphology Normal Hypochromasia 1+ Anisocytosis 1+ Sodium Level 156 MMOL/L (136-145) H Potassium Level 2.9 MMOL/L (3.5-5.1) L Chloride Level 123 MMOL/L (98-107) H Carbon Dioxide Level 23 MMOL/L (21-32) Anion Gap 10 mmol/L (5-15) Blood Urea Nitrogen 79 mg/dL (7-18) H Creatinine 1.5 MG/DL (0.55-1.30) H Estimat Glomerular Filtration Rate mL/min (>60) Glucose Level 145 MG/DL (74-106) #H Calcium Level 7.6 MG/DL (8.5-10.1) L Random Vancomycin Level 2.7 ug/mL Plan Problems: (1) Abnormal LFTs Assessment & Plan: likely related to hypotension and sepsis will trend US when stable (2) Septic shock Assessment & Plan: 79F in septic shock, hypotensive, on pressors, leukocytosis , lactic acidosis unable to obtain peripheral line has IO but not safe in elderly in her condition needs central venous access. see note IV abx micro pending send labs iv fluids will follow with recs (3) Decubitus skin ulcer Alistair Nieves Apr 04, 2019 14:06
[2019-04-04] MEDS: Meropenem 500 MG in NS 55 ML IVPB SCH ×2 (14:33→21:33)
[2019-04-04] MEDS ORDERED: NS 275ml ONE (15:19)
[2019-04-04] MEDS ORDERED: 1/2 NS 1000ml IV ONE (15:19)
[2019-04-04] MEDS ORDERED: Tubing IV Secondary IV ONE (15:19)
--- NOTE | 2019-04-04 16:10 | NUR ---
NURSE NOTES: Pt awake. confused. likes playing with [employer]. AAOX1. Pt is on R.A sating 99%. Bilateral rhonchi on auscultation. febrile 98.9. monitoring engineer HR 61, BP 130/79, RR18. Peripheral IV access on FA 20G. LT subclav TLC, patent/intact. Infusing 1/2NS @125ml/hr. levo going @ 10mcg/kg/min. Bryant catheter is in place, draining yellow urine. PEG intact,clamped and NPO. Abdomen is flat, soft, hypoactive bowel sounds. Skin-see assessment. Weak peripheral pulses palpated. Pt is currently in semi-baltazar's position, bed locked with side rails up X2, lowest position and call light within reach. contact isolation. Will continue to monitor pt and follow plan of care and protocol.
--- NOTE | 2019-04-04 16:14 | History and Physical Report ---
DATE OF ADMISSION: 04/03/2019 REASON FOR ADMISSION: Sepsis. HISTORY OF PRESENT ILLNESS: This is a very ill-appearing female who was noted to be in acute decompensation over at the snf. The patient was brought in emergently with elevated fevers and again renal failure. The patient with hypernatremia as well as elevated BUN and creatinine. The patient also has leukocytosis. The patient was seen and evaluated in the emergency room. The patient also on pressors, requiring ICU care. She is significantly contracted and difficult to assess. Care discussed with surgery and eventually a central line was placed successfully. The patient at times required Levophed to maintain blood pressure support. No other associated symptoms. No other clear aggravating symptoms. No reported nausea, vomiting, or aspiration. The patient has multiple medical problems. The patient has history of chronic psychiatric history, severe dementia, contractures, G-tube aspiration, prior pneumonia, prior sepsis, prior history of hypertension, prior history of acute renal failure. MEDICATIONS: Reviewed. ALLERGIES: Reviewed. SOCIAL HISTORY: The patient is a snf patient. She is essentially bedbound. REVIEW OF SYSTEMS: Unobtainable. FAMILY HISTORY: Unobtainable. PHYSICAL EXAMINATION: GENERAL: Chronically ill-appearing female, currently in the ICU. HEENT: Negative. NECK: Supple. The patient is significantly contracted at this time. LUNGS: Scattered rhonchi. Moderate air entry. CARDIAC: S1 and S2. The patient with regular rate and rhythm without murmurs, rubs, gallops. ABDOMEN: Soft, nontender. G-tube in place. EXTREMITIES: No cyanosis, clubbing, or edema. Significant contractures. NEUROLOGICALLY: Very spastic, difficult to fully assess, nonverbal. SKIN: Noted. LABORATORY AND DIAGNOSTIC DATA: Laboratory data reviewed. White count 18.8, hemoglobin 8.6, and platelets of 107. Sodium 156, potassium 2.9, chloride 123, BUN 79, creatinine 1.5. Blood gases 7.44/30/141. Chest x-ray essentially negative with exception of hyperinflation. IMPRESSION: Fever, likely sepsis, severe protein-calorie malnutrition, contractures, acute on chronic renal failure, hypernatremia, leukocytosis, evidence of anemia, history of hypertension, bedbound state, dementia. RECOMMENDATIONS: Supportive care. IV antibiotics, IV hydration, renal evaluation, ID evaluation, feeds and aspiration precautions. DVT prophylaxis and monitor clinically for changes. Levophed as needed and taper off. Remained in ICU for now as the patient is critical and follow clinically and provide skin change, position change, and offloading as able. Appreciate consultants care. Ac Bernal M.D. DR: Tayo JOB#: [id number] CC:
--- NOTE | 2019-04-04 17:13 | NUR ---
NURSE NOTES: Titrated Levo from 10 mcgs to 12 mcgs for BP 83/42. Recycled BP 86/51. BP now if 110/55 with HR 58. Patient is AAO x 1 only and does not appear in any acute distress however, was febrile earlier with INC WBC. Patient needs to be closely monitored. Will endorse to primary RN and PM molded goods operator regarding BP.
--- NOTE | 2019-04-04 17:45 | Consultation ---
DATE OF CONSULTATION: 04/04/2019 INFECTIOUS DISEASES CONSULTATION PRIMARY ATTENDING PHYSICIAN: Ac Bernal M.D. REASON FOR CONSULTATION: Septic shock and UTI. HISTORY OF PRESENT ILLNESS: The patient is a 79-year-old white female admitted on 03 of April from a residential facility because of fever, had fever of 104 degrees in the nursing facility and fever up to 106.8 degrees in the hospital. She was tachycardic, hypotensive, and was breathing fast. In the ER, the central line was placed for the patient. The patient was transferred to ICU, started on IV fluids and Levophed and started on empirical IV antibiotic treatment. The patient is not a source of history. PAST MEDICAL HISTORY: Significant for dementia, hypertension, has nephrolithiasis, staghorn calculus in the right kidney, and right hydronephrosis diagnosed in February 2018. She is status post G-tube placement, has history of MRSA colonization . ALLERGIES: Allergic to morphine. MEDICATIONS: Getting potassium chloride, sodium chloride, amlodipine, vitamin C, Colace, magnesium hydroxide, multivitamin, olanzapine, Zosyn, Tylenol, lorazepam, vancomycin, and norepinephrine. SOCIAL HISTORY: [facility] resident with poor mental and functional status. Bedbound. No other history obtainable. PHYSICAL EXAMINATION: VITAL SIGNS: Temperature 100.6 degrees, pulse 63, and blood pressure 100/41. GENERAL APPEARANCE: Seems to be cachectic. HEAD AND NECK: Severance conjunctivae. Poor dentition. HEART: Normal rate. She has left subclavian central line. ABDOMEN: Soft. G-tube in place. EXTREMITIES: She has no edema. She has muscle atrophy. NEUROLOGIC: Awake, alert, nonverbal. LABORATORY AND DIAGNOSTIC DATA: WBC 18.8, hemoglobin 8.6, hematocrit 27.4, and platelets 107,000. Sodium 156, potassium is 2.9, BUN 79, and creatinine 1.5. Lactic acid at the time of admission was 3, going back to the normal limit. Creatinine at the time of admission was 2.4. Troponin was slightly elevated to 0.088. Chest x-ray shows hyperinflation of lung. UA showed wbc's 20 to 30, rbc's 10 to 15, and leukocyte esterase 3+. Urine culture so far no growth. IMPRESSION: Sepsis with septic shock. Source may be urinary tract infection. The patient has history of hydronephrosis and staghorn stone of right kidney, has advanced dementia with aphasia, hypernatremia, hypokalemia, acute renal failure, history of methicillin-resistant Staphylococcus aureus colonization. She is status post gastrostomy tube placement. RECOMMENDATIONS: 1. Continue vancomycin. 2. We will change Zosyn to meropenem. 3. We will repeat renal ultrasound. At the end of my exam, I thank Dr. Bernal for involving me in the care of this patient. Jacobo Seals M.D. DR: Michelle JOB#: [id number] CC: LENCHO
--- NOTE | 2019-04-04 17:45 | Consultation ---
DATE OF CONSULTATION: 04/04/2019 NEPHROLOGY CONSULTATION CONSULTING PHYSICIAN: Arley Saha M.D. ATTENDING PHYSICIAN: Ac Bernal M.D. REASON FOR CONSULTATION: Elevated BUN and creatinine, and hypernatremia. HISTORY OF PRESENT ILLNESS: This is a 79-year-old female from halfway, admitted to the hospital by Dr. Bernal due to sepsis. The patient is nonverbal and unable to give any further information. I am asked to see the patient for elevation of BUN and creatinine, and sodium with critical level of 154. PAST MEDICAL HISTORY: 1. Hypertension. 2. Organic brain syndrome. 3. Glaucoma. MEDICATIONS: Amlodipine, ascorbic acid, Dulcolax, Alphagan eye drops, sodium docusate, oral iron, p.r.n. milk of magnesia, IV meropenem, multivitamin, nitrofurantoin, Zyprexa, Protonix, and zolpidem. ALLERGIES: To morphine. FAMILY HISTORY: Unable to obtain due to mental status. SOCIAL HISTORY: Unable to obtain due to mental status. REVIEW OF SYSTEMS: Unable to obtain to due to mental status. PHYSICAL EXAMINATION: GENERAL: This is an elderly cachectic female who is in no acute distress. VITAL SIGNS: Blood pressure 104/41, pulse is 63 , respirations 27. HEENT: Head is normocephalic and atraumatic. Pupils are equal, round, reactive to light. NECK: Supple. Trachea midline. There was no lymphadenopathy or thyromegaly. LUNGS: Bilateral rhonchi. HEART: Regular rate and rhythm without rubs, murmurs, or gallops. ABDOMEN: Soft and nontender. Bowel sounds were active. EXTREMITIES: Contractures in all extremities. SKIN: She has multiple decubitus ulcers including sacral. NEUROLOGIC: She is alert, but nonverbal. There were no gross focal findings. LABORATORY AND ANCILLARY DATA: On admission yesterday white count 17,500 and today 18,800, hematocrit on admission 42.8 today 27.4, and platelet count yesterday 181,000 and today 107,000. Chemistry, sodium 156, potassium 2.9, BUN 79, creatinine 1.5. Urinalysis 10 to 15 red blood cells, 20 to 30 white blood cells, many bacteria. Chest x-ray shows central line. ASSESSMENT: 1. Septicemia, most likely urosepsis. 2. Hypernatremia with hypokalemia. PLAN: 1. IV antibiotics per ID. 2. Change IV fluids from normal saline to D5W with potassium. 3. Check magnesium level. Thank you, Dr. Bernal, for letting me to participate in the care of this patient. Arley Saha M.D. DR: Dayami JOB#: [id number] CC: LENCHO
--- NOTE | 2019-04-04 17:57 | NUR ---
CASE MANAGEMENT: INITIAL REVIEW 79 YO F ALLEN FROM [facility] CC: FEVER PMHx: HTN. DEMENTIA. SI:SEPSIS. FEVER. T 104 HR 117 RR 30 B/P 108/54 SATS 100% ON 15NRB WBC 17.5 NA 151 CL 111 BUN 99 CR 2.4 GLU 267 AST 212 ALT 273 ALP 42 TOTAL CK 438 BNP 438 ABGs PCO2 30 PO2 141.8 HCO3 20.3 BE -2.9 IS: NS BOLUS X2 TYLENOL REC X1 PATIENT ADMITTED TO ICU 04/03/2019 @ 1751 DCP: PATIENT TO BE DISCHARGED TO SNF ONCE MEDICALLY CLEARED. PLAN OF CARE: US [facility] CONSULT WOUND CARE Addendum: 04/04/19 at 1920 by Carlita Anguiano CM INTERQUAL MET
--- NOTE | 2019-04-04 18:40 | NUR ---
NURSE NOTES: pt cleaned and repositioned. AAOX1. confusion. pt G.T very sluggish. Unable to push without resistance. C.N aware. Abdominal sounds hypoactive, but present. Endorse continue treatment for patency. pt in bed watching TV. US of ABD ordered for AM.
[2019-04-04] MEDS ORDERED: FOLIC ACID1 MG GT (19:01)
[2019-04-04] MEDS ORDERED: ZINC SULFATE220 M1 GT (19:01)
[2019-04-04] MEDS ORDERED: PROTONIX40 M2 GT (19:01)
[2019-04-04] MEDS ORDERED: ALBUTEROL2.5 MG/3 M INH (19:01)
[2019-04-04] MEDS ORDERED: MILK OF MA400 MG/51 GT (19:01)
[2019-04-04] MEDS ORDERED: BISACODYL10 M1 RC (19:01)
[2019-04-04] MEDS ORDERED: MYLANTA SUSPENSION GT (19:01)
[2019-04-04] MEDS ORDERED: ACETAMINOPHEN325 M1 GT ×2 (19:01)
[2019-04-04] MEDS ORDERED: PRO-STAT LIQUID30 ML GT (19:01)
[2019-04-04] MEDS ORDERED: FERROUS SU300 MG/5 M ORAL (19:01)
[2019-04-04] MEDS ORDERED: DOCUSATE SODIU100 MG ORAL (19:01)
--- NOTE | 2019-04-04 19:30 | NUR ---
HAND-OFF: Report given to Giovnani PACHECO. endorsed treatment to regain patency of G.T. pt in no acute distress.
--- NOTE | 2019-04-04 20:00 | NUR ---
NURSE NOTES: Patient received from Janina PACHECO. Patient is awake, AAOX1. Patient is on room air saturating at 98%. Patient currently is on Levophed, infusing via L subclavian TLC. Also running D5W w30 KCL at 125ml/hr. G-tube noted, currently NPO. Peripheral IV noted. Multiple wounds noted, Bryant catheter noted and hanging below waist line. Making good urine output, light yellow in color. No acute distress at this time.
[2019-04-04] MEDS: DOPamine 400mg/250ml 250 ML IV SCH (21:30)
--- NOTE | 2019-04-04 21:30 | NUR ---
NURSE NOTES: Patients HR in the high 40s and sometimes in the mid 40s SB but asymptomatic. Called Dr. Bernal for orders for Dopamine gtt. Switched over from Levophed to Dopamine gtt for hypotensive management.
--- NOTE | 2019-04-04 22:00 | NUR ---
NURSE NOTES: Patient repositioned and given oral care. Pressors ongoing, patient sleeping.
[2019-04-05] VITALS (49 sets, daily range): BP systolic 78–124; BP diastolic 29–93
--- NOTE | 2019-04-05 | NUR ---
NURSE NOTES: Patient repositioned and given oral care. Diastolic BP on the low side. Dopamine ongoing. Making good clear urine output. No distress at this time. Vitals remains stable. low grade fever in the upper 99s
--- NOTE | 2019-04-05 02:00 | NUR ---
NURSE NOTES: Pressors ongoing. BP controlled with pressors. Making good urine output. No respiratory distress or to other acute changes, patient remains awake but confused at times.
--- NOTE | 2019-04-05 04:00 | NUR ---
NURSE NOTES: Sponge bath and blood drawn and sent. Lines remains patent and asymptomatic. No changes at this time. Repositioned and given oral care.
--- NOTE | 2019-04-05 04:00 | NUR ---
NURSE NOTES: No acute changes over night, patient repositioned and given oral care. NAD at this time. Pressors ongoing. Will continue to monitor.
[2019-04-05] MEDS: Meropenem 500 MG in NS 55 ML IVPB SCH (05:15)
[2019-04-05] MEDS: DOPamine 400mg/250ml 250 ML IV SCH ×2 (05:16→17:43)
[2019-04-05 05:20] LABS: HEMATOCRIT 27.2 % (37.0-47.0); HEMOGLOBIN 8.5 G/DL (12.0-16.0); MEAN CORPUSCULAR VOLUME 89 FL (80-99); PLATELET COUNT 75 K/UL (150-450); RED BLOOD COUNT 3.07 M/UL (4.20-5.40); RED CELL DISTRIBUTION WIDTH 15.9 % (11.6-14.8)
[2019-04-05 05:23] LABS: ANION GAP 5 mmol/L (5-15); BLOOD UREA NITROGEN 38 mg/dL (7-18); CALCIUM 7.8 MG/DL (8.5-10.1); CARBON DIOXIDE 24 MMOL/L (21-32); CHLORIDE 112 MMOL/L (98-107); CREATININE 0.9 MG/DL (0.55-1.30); POTASSIUM 4.5 MMOL/L (3.5-5.1); SODIUM 141 MMOL/L (136-145)
--- NOTE | 2019-04-05 06:00 | NUR ---
NURSE NOTES: Patient remains stable, NAD at this time, patient remains on pressors. Repositioned and given oral care.
[2019-04-05] MEDS ORDERED: Vancomycin 750mg/NS 275ml IVPB ONE ×4 (07:00→09:00)
--- NOTE | 2019-04-05 07:00 | NUR ---
HAND-OFF: Report given to Eom RN.
--- NOTE | 2019-04-05 07:40 | NUR ---
NURSE NOTES: Received report from JUNIOR Davila. Patient is alert and oriented x1 with confusion. SB 50s on the monitor. On room air. She is on NPO for US ABD. Bryant intact and draining by gravity. Left Subclavian TLC intact and clean, running with dopamine @ 16mcg/kg/min and D5W with KCL 30meq @125ml/hr. Repositioned patient and call-light placed in easy reach. Will continue plan of care.
--- NOTE | 2019-04-05 08:19 | Critical Care Progress Note ---
Assessment/Plan Assessment/Plan IMPRESSION: Fever, likely sepsis, severe protein-calorie malnutrition, contractures, acute on chronic renal failure, hypernatremia, leukocytosis, evidence of anemia, history of hypertension, bedbound state, dementia. toxic metabolic encephalopathy PLAN nutrition IV antibiotics off pressors as able still needs ICU off load monitor protein levels close follow up remains critical but improved IV hydration renal parameters improved d/w consultants medications/laboratory data/nursing notes/ICU care reviewed in detail note reviewed and edited care discussed with RN and RT ICU time spent 40 minutes Critical Care - Subjective Interval Events: more alert hemodynamics improved bradycardic last night now on dopamine ROS Limited/Unobtainable: Yes Condition: critical EKG Rhythm: Sinus Rhythm Residuals: minimal Tube Feeding Tolerated: yes I&O: Intake and Output 04/04/19 04/05/19 19:00 07:00 Intake Total 1726.250 ml 1782.854 ml Output Total 480 ml 1360 ml Balance 1246.250 ml 422.854 ml Intake IV Total 1526.250 ml 1782.854 ml Tube Feeding 200 ml Output Urine Total 480 ml 1360 ml # Bowel Movements 4 Critical Care - Objective Last 24 Hour Vital Signs Date Time Temp Pulse Resp B/P (MAP) Pulse Ox O2 Delivery O2 Flow Rate FiO2 04/05/19 06:00 56 15 91/64 (73) 84 04/05/19 06:00 91/64 04/05/19 05:50 57 20 99/47 (64) 04/05/19 05:30 56 16 103/49 (67) 100 04/05/19 05:23 77/31 04/05/19 05:16 101/61 04/05/19 05:00 63 20 107/53 (71) 100 04/05/19 05:00 101/61 04/05/19 04:30 64 21 92/55 (67) 91 04/05/19 04:00 Room Air 04/05/19 04:00 95/50 04/05/19 04:00 99.3 64 20 102/49 (66) 100 04/05/19 04:00 59 04/05/19 03:30 60 21 97/43 (61) 100 04/05/19 03:00 58 17 101/39 (59) 99 04/05/19 03:00 89/39 04/05/19 02:30 61 22 96/42 (60) 99 04/05/19 02:00 102/53 04/05/19 02:00 61 22 97/45 (62) 99 04/05/19 01:30 66 22 102/45 (64) 99 04/05/19 01:00 66 19 91/44 (60) 98 04/05/19 01:00 109/41 04/05/19 00:30 74 16 104/45 (64) 100 04/05/19 00:00 Room Air 04/05/19 00:00 99/40 04/05/19 00:00 100.1 76 22 105/44 (64) 97 04/04/19 23:30 70 20 114/44 (67) 97 04/04/19 23:00 65 19 98/33 (54) 98 04/04/19 23:00 101/44 04/04/19 22:30 88 22 106/31 (56) 98 04/04/19 22:00 130/40 04/04/19 22:00 71 24 86/34 (51) 99 04/04/19 21:30 116/38 04/04/19 21:30 43 24 77/34 (48) 99 04/04/19 21:00 116/38 04/04/19 21:00 55 18 116/38 (64) 99 04/04/19 20:30 59 19 117/51 (73) 100 04/04/19 20:00 99.3 61 18 111/62 (78) 98 04/04/19 20:00 Room Air 04/04/19 20:00 129/55 04/04/19 20:00 53 04/04/19 19:30 63 23 113/73 (86) 96 04/04/19 19:00 59 22 125/82 (96) 04/04/19 19:00 129/55 04/04/19 18:30 83 21 115/74 (88) 04/04/19 18:00 60 15 140/115 (123) 98 04/04/19 17:45 62 22 127/79 (95) 04/04/19 17:30 60 18 117/39 (65) 04/04/19 17:00 58 22 86/51 (63) 99 04/04/19 16:30 58 16 119/46 (70) 99 04/04/19 16:00 60 20 120/52 (74) 100 04/04/19 16:00 Room Air 04/04/19 16:00 60 04/04/19 15:30 98.9 61 18 130/79 (96) 100 04/04/19 15:00 62 20 99/63 (75) 98 04/04/19 14:30 62 19 117/74 (88) 98 04/04/19 14:00 61 20 114/50 (71) 98 04/04/19 13:30 63 20 110/45 (66) 99 04/04/19 13:00 64 22 99/54 (69) 99 04/04/19 12:30 65 23 111/44 (66) 99 04/04/19 12:00 100.9 70 28 104/76 (85) 98 04/04/19 12:00 Room Air 04/04/19 12:00 68 04/04/19 11:30 66 26 110/47 (68) 99 04/04/19 11:00 101.3 61 24 104/45 (64) 99 04/04/19 10:15 63 27 100/41 (60) 99 04/04/19 10:00 63 27 106/45 (65) 99 04/04/19 10:00 106/45 04/04/19 09:45 65 26 111/46 (67) 99 04/04/19 09:30 62 26 100/42 (61) 99 04/04/19 09:15 62 25 103/43 (63) 99 04/04/19 09:00 105/43 04/04/19 09:00 100.6 62 26 105/43 (63) 99 04/04/19 08:53 100.7 04/04/19 08:45 63 27 102/45 (64) 99 04/04/19 08:30 64 28 107/43 (64) 99 Labs: Labs Test 04/03/19 16:30 04/03/19 17:30 04/03/19 17:55 04/03/19 18:01 White Blood Count 17.5 K/UL (4.8-10.8) Red Blood Count 4.72 M/UL (4.20-5.40) Hemoglobin 12.9 G/DL (12.0-16.0) Hematocrit 42.3 % (37.0-47.0) Mean Corpuscular Volume 90 FL (80-99) Mean Corpuscular Hemoglobin 27.4 PG (27.0-31.0) Mean Corpuscular Hemoglobin Concent 30.5 G/DL (32.0-36.0) Red Cell Distribution Width 15.6 % (11.6-14.8) Platelet Count 181 K/UL (150-450) Mean Platelet Volume 10.9 FL (6.5-10.1) Neutrophils (%) (Auto) 63.8 % (45.0-75.0) Lymphocytes (%) (Auto) 32.9 % (20.0-45.0) Monocytes (%) (Auto) 2.6 % (1.0-10.0) Eosinophils (%) (Auto) 0.0 % (0.0-3.0) Basophils (%) (Auto) 0.7 % (0.0-2.0) Sodium Level 151 MMOL/L (136-145) Potassium Level 4.4 MMOL/L (3.5-5.1) Chloride Level 111 MMOL/L (98-107) Carbon Dioxide Level 28 MMOL/L (21-32) Anion Gap 12 mmol/L (5-15) Blood Urea Nitrogen 99 mg/dL (7-18) Creatinine 2.4 MG/DL (0.55-1.30) Estimat Glomerular Filtration Rate mL/min (>60) Glucose Level 267 MG/DL (74-106) Lactic Acid Level 3.80 mmol/L (0.4-2.0) 3.00 mmol/L (0.66-2.22) Calcium Level 9.4 MG/DL (8.5-10.1) Total Bilirubin 0.5 MG/DL (0.2-1.0) Aspartate Amino Transf (AST/SGOT) 212 U/L (15-37) Alanine Aminotransferase (ALT/SGPT) 273 U/L (12-78) Alkaline Phosphatase 42 U/L (46-116) Total Creatine Kinase 438 U/L (26-308) Creatine Kinase MB 3.5 NG/ML (0.0-3.6) Creatine Kinase MB Relative Index 0.7 Troponin I 0.088 ng/mL (0.000-0.056) Pro-B-Type Natriuretic Peptide 2639 pg/mL (0-125) Total Protein 10.6 G/DL (6.4-8.2) Albumin 2.4 G/DL (3.4-5.0) Globulin 8.2 g/dL Albumin/Globulin Ratio 0.3 (1.0-2.7) Urine Color Yellow Urine Appearance Slightly cloudy Urine pH 5 (4.5-8.0) Urine Specific [place] 1.030 (1.005-1.035) Urine Protein 3+ (NEGATIVE) Urine Glucose (UA) Negative (NEGATIVE) Urine Ketones Negative (NEGATIVE) Urine Blood 4+ (NEGATIVE) Urine Nitrite Negative (NEGATIVE) Urine Bilirubin Negative (NEGATIVE) Urine Urobilinogen Normal MG/DL (0.0-1.0) Urine Leukocyte Esterase 3+ (NEGATIVE) Urine RBC 10-15 /HPF (0 - 2) Urine WBC 20-30 /HPF (0 - 2) Urine Squamous Epithelial Cells Moderate /LPF (NONE/OCC) Urine Bacteria Many /HPF (NONE) Urine Yeast Many /HPF (NONE) Arterial Blood pH 7.448 (7.350-7.450) Arterial Blood Partial Pressure CO2 30.0 mmHg (35.0-45.0) Arterial Blood Partial Pressure O2 141.8 mmHg (75.0-100.0) Arterial Blood HCO3 20.3 mmol/L (22.0-26.0) Arterial Blood Oxygen Saturation 97.9 % (95-100) Arterial Blood Base Excess -2.9 (-2-2) Jonah Test Positive Test 04/04/19 03:10 04/04/19 05:00 04/04/19 12:00 04/04/19 18:10 Lactic Acid Level 1.40 mmol/L (0.4-2.0) 1.80 mmol/L (0.4-2.0) White Blood Count 18.8 K/UL (4.8-10.8) Red Blood Count 3.06 M/UL (4.20-5.40) Hemoglobin 8.6 G/DL (12.0-16.0) Hematocrit 27.4 % (37.0-47.0) Mean Corpuscular Volume 90 FL (80-99) Mean Corpuscular Hemoglobin 28.1 PG (27.0-31.0) Mean Corpuscular Hemoglobin Concent 31.4 G/DL (32.0-36.0) Red Cell Distribution Width 16.2 % (11.6-14.8) Platelet Count 107 K/UL (150-450) Mean Platelet Volume 10.3 FL (6.5-10.1) Neutrophils (%) (Auto) % (45.0-75.0) Lymphocytes (%) (Auto) % (20.0-45.0) Monocytes (%) (Auto) % (1.0-10.0) Eosinophils (%) (Auto) % (0.0-3.0) Basophils (%) (Auto) % (0.0-2.0) Differential Total Cells Counted 100 Neutrophils % (Manual) 37 % (45-75) Lymphocytes % (Manual) 54 % (20-45) Monocytes % (Manual) 9 % (1-10) Eosinophils % (Manual) 0 % (0-3) Basophils % (Manual) 0 % (0-2) Band Neutrophils 0 % (0-8) Platelet Estimate Decreased Platelet Morphology Normal Hypochromasia 1+ Anisocytosis 1+ Sodium Level 156 MMOL/L (136-145) Potassium Level 2.9 MMOL/L (3.5-5.1) Chloride Level 123 MMOL/L (98-107) Carbon Dioxide Level 23 MMOL/L (21-32) Anion Gap 10 mmol/L (5-15) Blood Urea Nitrogen 79 mg/dL (7-18) Creatinine 1.5 MG/DL (0.55-1.30) Estimat Glomerular Filtration Rate mL/min (>60) Glucose Level 145 MG/DL (74-106) Calcium Level 7.6 MG/DL (8.5-10.1) Random Vancomycin Level 2.7 ug/mL Test 04/05/19 04:00 White Blood Count 14.0 K/UL (4.8-10.8) Red Blood Count 3.07 M/UL (4.20-5.40) Hemoglobin 8.5 G/DL (12.0-16.0) Hematocrit 27.2 % (37.0-47.0) Mean Corpuscular Volume 89 FL (80-99) Mean Corpuscular Hemoglobin 27.7 PG (27.0-31.0) Mean Corpuscular Hemoglobin Concent 31.3 G/DL (32.0-36.0) Red Cell Distribution Width 15.9 % (11.6-14.8) Platelet Count 75 K/UL (150-450) Mean Platelet Volume 10.7 FL (6.5-10.1) Neutrophils (%) (Auto) % (45.0-75.0) Lymphocytes (%) (Auto) % (20.0-45.0) Monocytes (%) (Auto) % (1.0-10.0) Eosinophils (%) (Auto) % (0.0-3.0) Basophils (%) (Auto) % (0.0-2.0) Sodium Level 141 MMOL/L (136-145) Potassium Level 4.5 MMOL/L (3.5-5.1) Chloride Level 112 MMOL/L (98-107) Carbon Dioxide Level 24 MMOL/L (21-32) Anion Gap 5 mmol/L (5-15) Blood Urea Nitrogen 38 mg/dL (7-18) Creatinine 0.9 MG/DL (0.55-1.30) Estimat Glomerular Filtration Rate mL/min (>60) Glucose Level 113 MG/DL (74-106) Calcium Level 7.8 MG/DL (8.5-10.1) Magnesium Level 2.1 MG/DL (1.8-2.4) Random Vancomycin Level 6.0 ug/mL Objective: GENERAL: Chronically ill-appearing female, currently more alert HEENT: Negative. NECK: Supple. The patient is significantly contracted at this time. LUNGS: improved rhonchi. Moderate air entry. no wheeze CARDIAC: S1 and S2. The patient with regular rate and rhythm without murmurs, rubs, gallops. ABDOMEN: Soft, nontender. G-tube in place. no distention EXTREMITIES: No cyanosis, clubbing, or edema. Significant contractures. NEUROLOGICALLY: contracted, difficult to fully assess, more alert SKIN: Noted. Micro: Microbiology Date/Time Source Procedure Growth Status 04/03/19 16:30 Blood Blood Culture - Preliminary NO GROWTH AFTER 24 HOURS Resulted 04/03/19 16:30 Blood Blood Culture - Preliminary NO GROWTH AFTER 24 HOURS Resulted 04/03/19 17:30 Urine,Clean Catch Urine Culture - Preliminary NO GROWTH AFTER 24 HOURS Resulted 04/03/19 20:00 Rectum VRE Culture - Final NO VANCOMYCIN RESISTANT ENTEROCOCCUS ... Resulted 04/03/19 20:00 Rectum Pending Resulted Ac Bernal MD 29, 2019 08:19
[2019-04-05] MEDS: Docusate 100mg/10ml Liq GT SCH ×2 (08:36→17:34)
[2019-04-05] MEDS: Multivitamin w/Minerals tab ORAL SCH (08:36)
[2019-04-05] MEDS: Ascorbic Acid 500mg tab GT SCH (08:36)
[2019-04-05] MEDS: Milk of Magnesia 30ml Ud GT SCH (08:36)
[2019-04-05] MEDS: Brimonidine 0.2% Opth Sol BOTH EYES SCH ×3 (08:45→17:35)
[2019-04-05] MEDS: Heparin 5000 units/ml inj SUBQ SCH ×2 (09:00→21:00)
--- NOTE | 2019-04-05 09:30 | NUR ---
NURSE NOTES: Oral care provided. and repositioned patient.
--- NOTE | 2019-04-05 10:17 | Nephrology Progress Note ---
Assessment/Plan Plan HELENE resolving. Hypernatremia- resolving. Change IVD to 1/2 NS. Subjective Subjective Nonverbal Objective Objective Last 24 Hour Vital Signs Date Time Temp Pulse Resp B/P (MAP) Pulse Ox O2 Delivery O2 Flow Rate FiO2 04/05/19 09:00 55 91/64 04/05/19 06:00 56 15 91/64 (73) 84 04/05/19 06:00 91/64 04/05/19 05:50 57 20 99/47 (64) 04/05/19 05:30 56 16 103/49 (67) 100 04/05/19 05:23 77/31 04/05/19 05:16 101/61 04/05/19 05:00 63 20 107/53 (71) 100 04/05/19 05:00 101/61 04/05/19 04:30 64 21 92/55 (67) 91 04/05/19 04:00 Room Air 04/05/19 04:00 95/50 04/05/19 04:00 99.3 64 20 102/49 (66) 100 04/05/19 04:00 59 04/05/19 03:30 60 21 97/43 (61) 100 04/05/19 03:00 58 17 101/39 (59) 99 04/05/19 03:00 89/39 04/05/19 02:30 61 22 96/42 (60) 99 04/05/19 02:00 102/53 04/05/19 02:00 61 22 97/45 (62) 99 04/05/19 01:30 66 22 102/45 (64) 99 04/05/19 01:00 66 19 91/44 (60) 98 04/05/19 01:00 109/41 04/05/19 00:30 74 16 104/45 (64) 100 04/05/19 00:00 Room Air 04/05/19 00:00 99/40 04/05/19 00:00 100.1 76 22 105/44 (64) 97 04/04/19 23:30 70 20 114/44 (67) 97 04/04/19 23:00 65 19 98/33 (54) 98 04/04/19 23:00 101/44 04/04/19 22:30 88 22 106/31 (56) 98 04/04/19 22:00 130/40 04/04/19 22:00 71 24 86/34 (51) 99 04/04/19 21:30 116/38 04/04/19 21:30 43 24 77/34 (48) 99 04/04/19 21:00 116/38 04/04/19 21:00 55 18 116/38 (64) 99 04/04/19 20:30 59 19 117/51 (73) 100 04/04/19 20:00 99.3 61 18 111/62 (78) 98 04/04/19 20:00 Room Air 04/04/19 20:00 129/55 04/04/19 20:00 53 04/04/19 19:30 63 23 113/73 (86) 96 04/04/19 19:00 59 22 125/82 (96) 04/04/19 19:00 129/55 04/04/19 18:30 83 21 115/74 (88) 04/04/19 18:00 60 15 140/115 (123) 98 04/04/19 17:45 62 22 127/79 (95) 04/04/19 17:30 60 18 117/39 (65) 04/04/19 17:00 58 22 86/51 (63) 99 04/04/19 16:30 58 16 119/46 (70) 99 04/04/19 16:00 60 20 120/52 (74) 100 04/04/19 16:00 Room Air 04/04/19 16:00 60 04/04/19 15:30 98.9 61 18 130/79 (96) 100 04/04/19 15:00 62 20 99/63 (75) 98 04/04/19 14:30 62 19 117/74 (88) 98 04/04/19 14:00 61 20 114/50 (71) 98 04/04/19 13:30 63 20 110/45 (66) 99 04/04/19 13:00 64 22 99/54 (69) 99 04/04/19 12:30 65 23 111/44 (66) 99 04/04/19 12:00 100.9 70 28 104/76 (85) 98 04/04/19 12:00 Room Air 04/04/19 12:00 68 04/04/19 11:30 66 26 110/47 (68) 99 04/04/19 11:00 101.3 61 24 104/45 (64) 99 Intake and Output 04/04/19 04/05/19 19:00 07:00 Intake Total 1726.250 ml 1782.854 ml Output Total 480 ml 1360 ml Balance 1246.250 ml 422.854 ml Intake IV Total 1526.250 ml 1782.854 ml Tube Feeding 200 ml Output Urine Total 480 ml 1360 ml # Bowel Movements 4 Laboratory Tests 04/04/19 12:00: Stool Occult Blood [Pending] 04/04/19 18:10: Lactic Acid Level 1.80 04/05/19 04:00: White Blood Count 14.0H, Red Blood Count 3.07L, Hemoglobin 8.5L, Hematocrit 27.2L, Mean Corpuscular Volume 89, Mean Corpuscular Hemoglobin 27.7, Mean Corpuscular Hemoglobin Concent 31.3L, Red Cell Distribution Width 15.9H, Platelet Count 75L, Mean Platelet Volume 10.7H, Neutrophils (%) (Auto) , Lymphocytes (%) (Auto) , Monocytes (%) (Auto) , Eosinophils (%) (Auto) , Basophils (%) (Auto) , Sodium Level 141#, Potassium Level 4.5#, Chloride Level 112H, Carbon Dioxide Level 24, Anion Gap 5, Blood Urea Nitrogen 38H, Creatinine 0.9, Estimat Glomerular Filtration Rate , Glucose Level 113H, Calcium Level 7.8L , Magnesium Level 2.1, Random Vancomycin Level 6.0 Height (Feet): 5 Height (Inches): 4.00 Weight (Pounds): 75 Objective CV RR Lungs B Cristina Hobbs SNT. BS + E No CCE Arley Saha MD Apr 05, 2019 10:17
--- NOTE | 2019-04-05 10:46 | NUR ---
Social Work This Sw met with patient who is currently in the ICU, who appears alert, oriented x1, confused (not able to provide own decision making). Patient requires 24 hour care and was living at [facility], with plans to return there when medically cleared. This Sw spoke with Medical Records at [facility] (Usha) who explained patient does not have any family, no conservator or public Guardian to assist with decision making or provide consents for treatment. Bioethics to follow, for any end of life decision making. M.D to consent for emergency treatments, procedures and surgeries, as needed. ICU nursing updated with this information.
[2019-04-05] MEDS: 1/2NS w/KCl 20mEq 1000ml 1,000 ML IV SCH (11:02)
--- NOTE | 2019-04-05 11:05 | NUR ---
NURSE NOTES: Assessed by wound care nurse.
--- NOTE | 2019-04-05 11:07 | Diagnostic Imaging Report ---
Indication: Abnormal liver function tests. Abnormal renal function tests Technique: Alanis-scale and duplex images of the upper abdomen were obtained Comparison: 02/23/2019 Findings: Exam is somewhat limited, as patient is contracted, unable to cooperate optimally, and has bandages over gastrostomy tube and a acoustic access. There is trace ascites fluid Gallbladder is unremarkable, without stones, wall thickening, nor pericholecystic fluid. Sonographic Beth's sign is negative. Common bile duct measures 6 mm in diameter. No intrahepatic biliary ductal dilatation. Liver demonstrates normal echogenicity, no focal abnormality. Portal vein and hepatic veins are patent. Pancreas is unremarkable. Spleen is unremarkable. Left kidney measures 11 cm in length. Right kidney measures 8.5 cm length. Both kidneys demonstrate normal echogenicity. Both kidneys demonstrate moderate hydronephrosis. Both kidneys demonstrate multiple collecting system calculi. Abdominal aorta is partially obscured by bowel gas, visualized portions are non-aneurysmal . Urinary bladder is decompressed by Bryant catheter, not visualized Impression: Limited exam, as described Bilateral moderate hydronephrosis and bilateral collecting system calculi. This was previously reported on the right, is a new finding on the left Trace ascites Nonvisualized urinary bladder Negative for gallstones or dilated bile ducts
--- NOTE | 2019-04-05 12:19 | Infectious Diseases Prog Note ---
Assessment/Plan Assessment/Plan IMPRESSION: Sepsis with septic shock. Urinary tract infection. Hydronephrosis Bilateral renal stone Dementia Hypernatremia, corrected hypokalemia, corrected Acute renal failure, Methicillin-resistant Staphylococcus aureus colonization. Status post gastrostomy tube placement. RECOMMENDATIONS: 1. Continue vancomycin & meropenem. 2. will f/u cultures Subjective ROS Limited/Unobtainable: Yes Cardiovascular: Reports: other - levophed changed to Dopamine Neurologic: Reports: confusion, other - more responive Allergies: Coded Allergies: MORPHINE (Verified Allergy, Unknown, 07/18/09) Objective Vital Signs Last 24 Hour Vital Signs Date Time Temp Pulse Resp B/P (MAP) Pulse Ox O2 Delivery O2 Flow Rate FiO2 04/05/19 11:00 57 20 114/45 (68) 100 04/05/19 10:30 57 23 100/78 (85) 88 04/05/19 10:00 58 20 100/77 (85) 04/05/19 09:30 55 23 117/93 (101) 72 04/05/19 09:00 55 91/64 04/05/19 09:00 56 17 124/60 (81) 100 04/05/19 08:30 57 20 103/64 (77) 100 04/05/19 08:00 98.7 56 17 111/50 (70) 93 04/05/19 08:00 Room Air 04/05/19 07:30 58 17 106/39 (61) 100 04/05/19 07:00 57 18 114/53 (73) 100 04/05/19 06:30 55 17 105/45 (65) 100 04/05/19 06:00 56 15 91/64 (73) 84 04/05/19 06:00 91/64 04/05/19 05:50 57 20 99/47 (64) 04/05/19 05:30 56 16 103/49 (67) 100 04/05/19 05:23 77/31 04/05/19 05:16 101/61 04/05/19 05:00 63 20 107/53 (71) 100 04/05/19 05:00 101/61 04/05/19 04:30 64 21 92/55 (67) 91 04/05/19 04:00 Room Air 04/05/19 04:00 95/50 04/05/19 04:00 99.3 64 20 102/49 (66) 100 04/05/19 04:00 59 04/05/19 03:30 60 21 97/43 (61) 100 04/05/19 03:00 58 17 101/39 (59) 99 04/05/19 03:00 89/39 04/05/19 02:30 61 22 96/42 (60) 99 04/05/19 02:00 102/53 04/05/19 02:00 61 22 97/45 (62) 99 04/05/19 01:30 66 22 102/45 (64) 99 04/05/19 01:00 66 19 91/44 (60) 98 04/05/19 01:00 109/41 04/05/19 00:30 74 16 104/45 (64) 100 04/05/19 00:00 Room Air 04/05/19 00:00 99/40 04/05/19 00:00 100.1 76 22 105/44 (64) 97 04/04/19 23:30 70 20 114/44 (67) 97 04/04/19 23:00 65 19 98/33 (54) 98 04/04/19 23:00 101/44 04/04/19 22:30 88 22 106/31 (56) 98 04/04/19 22:00 130/40 04/04/19 22:00 71 24 86/34 (51) 99 04/04/19 21:30 116/38 04/04/19 21:30 43 24 77/34 (48) 99 04/04/19 21:00 116/38 04/04/19 21:00 55 18 116/38 (64) 99 04/04/19 20:30 59 19 117/51 (73) 100 04/04/19 20:00 99.3 61 18 111/62 (78) 98 04/04/19 20:00 Room Air 04/04/19 20:00 129/55 04/04/19 20:00 53 04/04/19 19:30 63 23 113/73 (86) 96 04/04/19 19:00 59 22 125/82 (96) 04/04/19 19:00 129/55 04/04/19 18:30 83 21 115/74 (88) 04/04/19 18:00 60 15 140/115 (123) 98 7/28/19 17:45 62 22 127/79 (95) 04/04/19 17:30 60 18 117/39 (65) 04/04/19 17:00 58 22 86/51 (63) 99 04/04/19 16:30 58 16 119/46 (70) 99 04/04/19 16:00 60 20 120/52 (74) 100 04/04/19 16:00 Room Air 04/04/19 16:00 60 04/04/19 15:30 98.9 61 18 130/79 (96) 100 04/04/19 15:00 62 20 99/63 (75) 98 04/04/19 14:30 62 19 117/74 (88) 98 04/04/19 14:00 61 20 114/50 (71) 98 04/04/19 13:30 63 20 110/45 (66) 99 04/04/19 13:00 64 22 99/54 (69) 99 04/04/19 12:30 65 23 111/44 (66) 99 Height (Feet): 5 Height (Inches): 4.00 Weight (Pounds): 75 General Appearance: cachetic HEENT: mucous membranes moist Respiratory/Chest: lungs clear Cardiovascular: bradycardia, other - left subclavian central line Abdomen: soft, non tender Extremities: no edema Neurologic/Psychiatric: alert, responsive Musculoskeletal: atrophy Microbiology Date/Time Source Procedure Growth Status 04/03/19 16:30 Blood Blood Culture - Preliminary NO GROWTH AFTER 24 HOURS Resulted 04/03/19 16:30 Blood Blood Culture - Preliminary NO GROWTH AFTER 24 HOURS Resulted 04/03/19 20:00 Nasal Nares MRSA Culture - Final Staphylococcus Aureus - Mrsa Complete 04/03/19 17:30 Urine,Clean Catch Urine Culture - Preliminary NO GROWTH AFTER 24 HOURS Resulted 04/03/19 20:00 Rectum VRE Culture - Final NO VANCOMYCIN RESISTANT ENTEROCOCCUS ... Resulted 04/03/19 20:00 Rectum Pending Resulted Laboratory Tests Test 04/04/19 18:10 04/05/19 04:00 Lactic Acid Level 1.80 mmol/L (0.4-2.0) White Blood Count 14.0 K/UL (4.8-10.8) H Red Blood Count 3.07 M/UL (4.20-5.40) L Hemoglobin 8.5 G/DL (12.0-16.0) L Hematocrit 27.2 % (37.0-47.0) L Mean Corpuscular Volume 89 FL (80-99) Mean Corpuscular Hemoglobin 27.7 PG (27.0-31.0) Mean Corpuscular Hemoglobin Concent 31.3 G/DL (32.0-36.0) L Red Cell Distribution Width 15.9 % (11.6-14.8) H Platelet Count 75 K/UL (150-450) L Mean Platelet Volume 10.7 FL (6.5-10.1) H Neutrophils (%) (Auto) % (45.0-75.0) Lymphocytes (%) (Auto) % (20.0-45.0) Monocytes (%) (Auto) % (1.0-10.0) Eosinophils (%) (Auto) % (0.0-3.0) Basophils (%) (Auto) % (0.0-2.0) Sodium Level 141 MMOL/L (136-145) # Potassium Level 4.5 MMOL/L (3.5-5.1) # Chloride Level 112 MMOL/L (98-107) H Carbon Dioxide Level 24 MMOL/L (21-32) Anion Gap 5 mmol/L (5-15) Blood Urea Nitrogen 38 mg/dL (7-18) H Creatinine 0.9 MG/DL (0.55-1.30) Estimat Glomerular Filtration Rate mL/min (>60) Glucose Level 113 MG/DL (74-106) H Calcium Level 7.8 MG/DL (8.5-10.1) L Magnesium Level 2.1 MG/DL (1.8-2.4) Random Vancomycin Level 6.0 ug/mL Current Medications Medications (Trade) Dose Ordered Sig/Marcos Route PRN Reason Start Time Stop Time Status Last Admin Dose Admin Acetaminophen (Tylenol) 650 mg Q4H PRN GT Mild Pain/Temp > 100.5 04/04/19 08:15 05/04/19 08:14 04/04/19 08:23 Amlodipine Besylate (Norvasc) 5 mg DAILY GT 04/04/19 09:00 05/04/19 08:59 Ascorbic Acid (Vitamin C) 500 mg DAILY GT 04/04/19 09:00 05/04/19 08:59 7/29/19 08:36 Bisacodyl (Dulcolax) 10 mg PRN PRN RECTAL Constipation 04/03/19 21:30 05/03/19 21:29 Brimonidine Tartrate (Alphagan) 1 drop TID BOTH EYES 04/04/19 09:00 05/04/19 08:59 04/05/19 08:45 Chlorhexidine Gluconate (Kylee-Hex 2%) 1 applic DAILY@2000 TOPIC 04/05/19 20:00 05/05/19 19:59 Docusate Sodium (Colace) 100 mg BID GT 04/04/19 09:00 05/04/19 08:59 04/05/19 08:36 Dopamine HCl/ Dextrose 250 ml @ 0 mls/hr Q24H IV 04/04/19 21:17 05/04/19 21:16 04/05/19 05:16 Heparin Sodium (Porcine) (Heparin 5000 units/ml) 5,000 units EVERY 12 HOURS SUBQ 04/04/19 09:00 05/04/19 08:59 04/04/19 20:00 Lorazepam (Ativan) 1 mg Q4HR PRN GT For Anxiety 04/03/19 21:30 04/10/19 21:29 04/05/19 08:36 Magnesium Hydroxide (Mom) 30 ml DAILY GT 04/04/19 09:00 05/04/19 08:59 04/05/19 08:36 Meropenem 1 gm/ Sodium Chloride 55 ml @ 110 mls/hr Q12H IVPB 04/05/19 17:00 04/10/19 16:59 Multivitamins Therapeutic (Therapeutic Multivitamin) 1 ea DAILY ORAL 04/04/19 09:00 05/04/19 08:59 04/05/19 08:36 Norepinephrine Bitartrate 8 mg/ Dextrose 250 ml @ 0 mls/hr Q24H IV 04/03/19 21:15 05/03/19 21:14 04/04/19 20:00 Olanzapine (ZyPREXA) 5 mg TID GT 04/04/19 09:00 05/04/19 08:59 04/05/19 08:36 Pantoprazole (Protonix) 40 mg DAILY ORAL 04/04/19 09:00 05/04/19 08:59 04/05/19 08:36 Sodium 1,000 ml @ 75 mls/hr [id number] IV 04/05/19 10:30 05/05/19 10:29 04/05/19 11:02 Vancomycin HCl (Vanco rx to dose) 1 ea DAILY PRN MISC Per rx protocol 04/03/19 21:30 05/03/19 21:29 Vancomycin HCl 500 mg/Dextrose 110 ml @ 110 mls/hr Q24H IVPB 04/06/19 09:00 04/11/19 08:59 Zolpidem Tartrate (Ambien) 5 mg BEDTIME PRN GT Insomnia 04/03/19 21:30 04/10/19 21:29 Jacobo Seals MD Apr 05, 2019 12:19
--- NOTE | 2019-04-05 12:59 | Surgery Progress Note ---
Surgery Progress Note Subjective Procedure Performed left subclavian central venous catheter insertion Additional Comments Patient seen and examined bedside. Leukocytosis trending down. She states she feels well and wants to go home. Off levo and on dopa now weaning as possible. Objective Last 24 Hour Vital Signs Date Time Temp Pulse Resp B/P (MAP) Pulse Ox O2 Delivery O2 Flow Rate FiO2 04/05/19 11:30 90/47 04/05/19 11:00 89/46 04/05/19 11:00 57 20 114/45 (68) 100 04/05/19 10:30 57 23 100/78 (85) 88 04/05/19 10:30 85/49 04/05/19 10:00 105/44 04/05/19 10:00 58 20 100/77 (85) 04/05/19 09:30 100/45 04/05/19 09:30 55 23 117/93 (101) 72 04/05/19 09:00 108/56 04/05/19 09:00 55 91/64 04/05/19 09:00 56 17 124/60 (81) 100 04/05/19 08:30 57 20 103/64 (77) 100 04/05/19 08:30 93/43 04/05/19 08:00 98.7 56 17 111/50 (70) 93 04/05/19 08:00 Room Air 04/05/19 08:00 96/49 04/05/19 07:30 58 17 106/39 (61) 100 04/05/19 07:30 98/41 04/05/19 07:00 57 18 114/53 (73) 100 04/05/19 07:00 65/36 04/05/19 06:30 55 17 105/45 (65) 100 04/05/19 06:00 56 15 91/64 (73) 84 04/05/19 06:00 91/64 04/05/19 05:50 57 20 99/47 (64) 04/05/19 05:30 56 16 103/49 (67) 100 04/05/19 05:23 77/31 04/05/19 05:16 101/61 04/05/19 05:00 63 20 107/53 (71) 100 04/05/19 05:00 101/61 04/05/19 04:30 64 21 92/55 (67) 91 04/05/19 04:00 Room Air 04/05/19 04:00 95/50 04/05/19 04:00 99.3 64 20 102/49 (66) 100 04/05/19 04:00 59 04/05/19 03:30 60 21 97/43 (61) 100 04/05/19 03:00 58 17 101/39 (59) 99 04/05/19 03:00 89/39 04/05/19 02:30 61 22 96/42 (60) 99 04/05/19 02:00 102/53 04/05/19 02:00 61 22 97/45 (62) 99 04/05/19 01:30 66 22 102/45 (64) 99 04/05/19 01:00 66 19 91/44 (60) 98 04/05/19 01:00 109/41 04/05/19 00:30 74 16 104/45 (64) 100 04/05/19 00:00 Room Air 04/05/19 00:00 99/40 04/05/19 00:00 100.1 76 22 105/44 (64) 97 04/04/19 23:30 70 20 114/44 (67) 97 04/04/19 23:00 65 19 98/33 (54) 98 04/04/19 23:00 101/44 04/04/19 22:30 88 22 106/31 (56) 98 04/04/19 22:00 130/40 04/04/19 22:00 71 24 86/34 (51) 99 04/04/19 21:30 116/38 04/04/19 21:30 43 24 77/34 (48) 99 04/04/19 21:00 116/38 04/04/19 21:00 55 18 116/38 (64) 99 04/04/19 20:30 59 19 117/51 (73) 100 04/04/19 20:00 99.3 61 18 111/62 (78) 98 04/04/19 20:00 Room Air 04/04/19 20:00 129/55 04/04/19 20:00 53 04/04/19 19:30 63 23 113/73 (86) 96 04/04/19 19:00 59 22 125/82 (96) 04/04/19 19:00 129/55 7/28/19 18:30 83 21 115/74 (88) 04/04/19 18:00 60 15 140/115 (123) 98 04/04/19 17:45 62 22 127/79 (95) 04/04/19 17:30 60 18 117/39 (65) 04/04/19 17:00 58 22 86/51 (63) 99 04/04/19 16:30 58 16 119/46 (70) 99 04/04/19 16:00 60 20 120/52 (74) 100 04/04/19 16:00 Room Air 04/04/19 16:00 60 04/04/19 15:30 98.9 61 18 130/79 (96) 100 04/04/19 15:00 62 20 99/63 (75) 98 04/04/19 14:30 62 19 117/74 (88) 98 04/04/19 14:00 61 20 114/50 (71) 98 04/04/19 13:30 63 20 110/45 (66) 99 04/04/19 13:00 64 22 99/54 (69) 99 I&O Intake and Output 04/04/19 04/05/19 18:59 06:59 Intake Total 1751.250 ml 1926.604 ml Output Total 495 ml 1395 ml Balance 1256.250 ml 531.604 ml Intake IV Total 1501.250 ml 1926.604 ml Tube Feeding 250 ml Output Urine Total 495 ml 1395 ml # Bowel Movements 4 Dressing: dry Wound: clean Cardiovascular: RSR Respiratory: clear Abdomen: soft, non-tender, present bowel sounds Extremities: no cyanosis, other - Severely contracted Laboratory Tests Test 04/04/19 18:10 04/05/19 04:00 Lactic Acid Level 1.80 mmol/L (0.4-2.0) White Blood Count 14.0 K/UL (4.8-10.8) H Red Blood Count 3.07 M/UL (4.20-5.40) L Hemoglobin 8.5 G/DL (12.0-16.0) L Hematocrit 27.2 % (37.0-47.0) L Mean Corpuscular Volume 89 FL (80-99) Mean Corpuscular Hemoglobin 27.7 PG (27.0-31.0) Mean Corpuscular Hemoglobin Concent 31.3 G/DL (32.0-36.0) L Red Cell Distribution Width 15.9 % (11.6-14.8) H Platelet Count 75 K/UL (150-450) L Mean Platelet Volume 10.7 FL (6.5-10.1) H Neutrophils (%) (Auto) % (45.0-75.0) Lymphocytes (%) (Auto) % (20.0-45.0) Monocytes (%) (Auto) % (1.0-10.0) Eosinophils (%) (Auto) % (0.0-3.0) Basophils (%) (Auto) % (0.0-2.0) Sodium Level 141 MMOL/L (136-145) # Potassium Level 4.5 MMOL/L (3.5-5.1) # Chloride Level 112 MMOL/L (98-107) H Carbon Dioxide Level 24 MMOL/L (21-32) Anion Gap 5 mmol/L (5-15) Blood Urea Nitrogen 38 mg/dL (7-18) H Creatinine 0.9 MG/DL (0.55-1.30) Estimat Glomerular Filtration Rate mL/min (>60) Glucose Level 113 MG/DL (74-106) H Calcium Level 7.8 MG/DL (8.5-10.1) L Magnesium Level 2.1 MG/DL (1.8-2.4) Random Vancomycin Level 6.0 ug/mL Plan Problems: (1) Abnormal LFTs Assessment & Plan: likely related to hypotension and sepsis will trend US when stable (2) Septic shock Assessment & Plan: 79F in septic shock, hypotensive, on pressors, leukocytosis , lactic acidosis unable to obtain peripheral line has IO but not safe in elderly in her condition needs central venous access. see note IV abx labs improving exam stable iv fluids will follow with recs (3) Decubitus skin ulcer Alistair Nieves Apr 05, 2019 12:59
--- NOTE | 2019-04-05 13:10 | NUR ---
NURSE NOTES: Patient refused oral care. Repositioned patient.
--- NOTE | 2019-04-05 14:15 | NUR ---
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 98.7 HR 55 RR 17 B/P 111/50 RA 98% WBC 14.0 BUN 38 IS: DOPAMINE GTT MEROPENEM IV IVF NS @ 75ML/HR VANCO IV ICU STATUS
--- NOTE | 2019-04-05 15:11 | NUR ---
NURSE NOTES: Dr. Nieves notified of consult regarding pressure injury
--- NOTE | 2019-04-05 15:25 | NUR ---
NURSE NOTES:WOUND CARE NOTES:Pt presented on admission with contractures and multiple pressure injuries. Non-Blanchable erythema without induration or fluctuance noted to R scapula (L)4cm x (W)3.2cm. Two partial thickness pressure injuries noted to R thoracic area-Proximal wound is a partial thickness wound. Base of wound is moist and viable with surrounding non-blanching erythema without induration/fluctuance (L)2.5cm x (W)3cm. Inferior wound in close proximity to above wound -Base of wound is moist and viable with surrounding non-Blanching erythema without induration/fluctuance (L)3.5cm x (W)2cm. DTPI noted to L trochanter. Base of wound is purple with surrounding maroon borders. Base of wound is indurated. Periwound without erythema or induration.(L)4.3cm x (W)4.2cm. DTPI noted to R trochanter.Base of wound is purple with surrounding maroon discoloration. Base of wound is indurated. Non-blanchable erythema without fluctuance periwound. (L)7.3cm x (W)7.2cm. DTPI noted to sacrum. Base of wound is indurated- purple with maroon areas. Non-blanching erythema without fluctuance or induration periwound. DTPI that is partially opened along borders distal /lateral R foot.Base of wound is fluctuant and maroon in colour .No exudate noted. (L)3cm x (W)2.5cm. Periwound is pink and blanchable. Bilat heels and malleoli each feet are pink and blanchable. No other areas of concerns noted. Tx.Plan: Apply Cavilon Skin Barrier [place] to R scapula. Cover with Optifoam drsg. Change every 7 days and prn. Apply Cavilon Skin barrier spray to R and L Trochanters. Apply Triad paste. Cover each site with Optifoam drsg. Change every 3 days and prn. Apply Cavilon Skin Barrier [place] to Sacrum then apply Triad. Cover with Optifoam drsg. Change every 3 days and PRN. Apply Cavilon Skin Barrier to distal/lateral R foot. Cover with Optifoam drsg. Change every 3 days and prn. Apply Triad Paste to wounds R thoracic (2 sites). Cover with Optifoam drsg. change every 3 days and prn APM/LEONARD mattress overlay. Reposition at least every 2hours or as tolerated. Place pillow between knees. Off-load heels with pillow. Off-load heels with pillow.
--- NOTE | 2019-04-05 16:30 | NUR ---
NURSE NOTES: Put P200 mattress. Bed bath given.
[2019-04-05] MEDS: Meropenem 1gm in NS 55ml IVPB SCH (17:42)
--- NOTE | 2019-04-05 19:00 | NUR ---
HAND-OFF: Report given to JUNIOR Davila. Endorsed plan of care.
--- NOTE | 2019-04-05 19:00 | NUR ---
NURSE NOTES: Patient received from Eom RN. Patient is awake but confused at time. Verbalizes but not comprehensible. Patient is on room air and saturating 99%. Patient has GT running Jevity at 50ml/hr. Bryant catheter noted and hanging below waist and draining clear yellow urine. Patient has multiple DTI's and is on a P200 air loss mattress. Dressings are dry and intact. diesel scoop operator already came to assess patients wounds. Patient has Left Subclavian TLC running Dopamine at 16mcg. 1/2NS w/20mEq at 75ml/hr also infusing. Patient is contracted at both upper and lower extremities. Lung sounds are clear bilaterally, non-tender abdomen, hypoactive bowel sounds, no edema, bilateral pulses noted. Central line dressing dry and intact. HR right now is 66 NSR, BP: 90/46, afebrile, SpO2 97%, RR 24. Patient is not under any distress at this time. Safety measures are in place, bed lowest position and bed alarm is set. Call light is within reach and patients room closest to nursing station. Will continue to monitor patients progress.
[2019-04-05] MEDS: Dyna-Hex 2% Top Sol 2oz TOPIC SCH (19:52)
--- NOTE | 2019-04-05 20:00 | NUR ---
NURSE NOTES: Patient repositioned and given oral care. Pressors are ongoing. Low diastolic pressure Systolic okay. Remains on room air and saturating above 94%. HR remains SB in the 50s. Tube feeds ongoing, h20 flush given. No residual. Pillows adjusted. Will continue to monitor.
--- NOTE | 2019-04-05 22:00 | NUR ---
NURSE NOTES: Repositioned and given oral care. Trying to damaris pressors down but patients BP too sensitive when we try to titrate down the dopamine. Right now 16mcg is where BP is most stable.
[2019-04-06] VITALS (47 sets, daily range): BP systolic 82–130; BP diastolic 21–88
--- NOTE | 2019-04-06 | NUR ---
NURSE NOTES: HR in the low to mid 50s asymptomatic. Pressors ongoing. Patient repositioned. Good urine output. Will continue to monitor.
--- NOTE | 2019-04-06 02:00 | NUR ---
NURSE NOTES: Patient repositioned. Oral care given. G-tube flushed with 30ml. No feed residual. No distress at this time. HR remains in the low 50s but asymptomatic. Pressors ongoing.
--- NOTE | 2019-04-06 04:00 | NUR ---
NURSE NOTES: Repositioned patient and given sponge bath. No acute distress at this time. Pressors ongoing. IV kibes remains patent. No new changes.
[2019-04-06] MEDS: Meropenem 1gm in NS 55ml IVPB SCH ×2 (05:12→17:41)
[2019-04-06] MEDS: DOPamine 400mg/250ml 250 ML IV SCH (05:13)
--- NOTE | 2019-04-06 06:00 | NUR ---
NURSE NOTES: Repositioned patient. No new changes overnight. HR remains SB in the 50s. No fevers. Low Diastolic.
--- NOTE | 2019-04-06 07:00 | NUR ---
HAND-OFF: Report given to Mya Marvin.
--- NOTE | 2019-04-06 07:10 | NUR ---
NURSE NOTES: Received pt from JUNIOR Davila. Patient is alert to name only, confused. Frequent reorientation needed. Breathing even and unlabored; bilateral breath sounds are diminished. RA, spo2 100%, RR 17. No signs of distress at this time. Patient in position, contracture noted on all extremities; BLE worse than upper. P200 [address]. Left subclavian TLC running Dopamine and 1/2NS with 20 meq KCL@75ml/hr. PEG running Jevity 1.2@50ml/hr, 5 ml residual noted, abdomen is flat and non-tender, HOB 35 degrees. Dressing on sacral, bilateral trochanter, left foot, and right elbow clean and intact. FC draining straw colored urine to gravity. 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 Bed locked, alarmed and in lowest position. Will continue plan of care.
--- NOTE | 2019-04-06 08:08 | Critical Care Progress Note ---
Assessment/Plan Assessment/Plan IMPRESSION: Fever, likely sepsis, severe protein-calorie malnutrition, contractures, acute on chronic renal failure, hypernatremia, leukocytosis, evidence of anemia, history of hypertension, bedbound state, dementia. toxic metabolic encephalopathy PLAN nutrition as tolerated; elevate head IV antibiotics off pressors as able- still on dopa still needs ICU due to pressors off load; wound care monitor protein levels close follow up remains critical but improved IV hydration for now renal parameters improved d/w consultants and ancillary staff medications/laboratory data/nursing notes/ICU care reviewed in detail note reviewed and edited care discussed with RN and RT ICU time spent 38 minutes Critical Care - Subjective Interval Events: still on dopamine wound care reviewed tolerating feeds ROS Limited/Unobtainable: Yes Condition: critical EKG Rhythm: Sinus Rhythm Residuals: minimal Tube Feeding Tolerated: yes I&O: Intake and Output 04/05/19 04/06/19 19:00 07:00 Intake Total 2415.208 ml 1817.486 ml Output Total 2225 ml 1075 ml Balance 190.208 ml 742.486 ml Intake Free Water 200 ml IV Total 2065.208 ml 1217.486 ml Tube Feeding 150 ml 600 ml Output Urine Total 2225 ml 1075 ml Critical Care - Objective Last 24 Hour Vital Signs Date Time Temp Pulse Resp B/P (MAP) Pulse Ox O2 Delivery O2 Flow Rate FiO2 04/06/19 07:00 51 23 124/31 (62) 99 04/06/19 07:00 124/31 04/06/19 06:30 52 24 116/36 (62) 98 04/06/19 06:00 50 21 114/40 (64) 97 04/06/19 06:00 114/40 04/06/19 05:30 52 24 99/36 (57) 99 04/06/19 05:13 88/25 04/06/19 05:12 88/25 04/06/19 05:00 59 25 105/29 (54) 86 04/06/19 05:00 105/29 04/06/19 04:30 61 23 96/47 (63) 100 04/06/19 04:00 41 04/06/19 04:00 100/34 04/06/19 04:00 Room Air 04/06/19 04:00 98.2 57 22 114/37 (62) 100 04/06/19 03:30 56 19 115/43 (67) 98 04/06/19 03:00 61 20 100/82 (88) 99 04/06/19 03:00 100/82 04/06/19 02:30 63 21 119/43 (68) 87 04/06/19 02:00 109/39 04/06/19 02:00 53 26 111/21 (51) 99 04/06/19 01:30 52 22 108/47 (67) 98 04/06/19 01:00 110/34 04/06/19 01:00 51 23 110/34 (59) 97 04/06/19 00:30 54 23 123/44 (70) 78 04/06/19 00:00 Room Air 04/06/19 00:00 55 04/06/19 00:00 99.3 58 25 123/30 (61) 99 04/06/19 00:00 103/57 04/05/19 23:30 56 25 114/37 (62) 97 04/05/19 23:00 58 22 105/37 (59) 96 04/05/19 23:00 105/37 04/05/19 22:30 63 21 102/39 (60) 97 04/05/19 22:00 110/39 04/05/19 22:00 61 25 110/39 (62) 95 04/05/19 21:30 53 24 92/42 (59) 95 04/05/19 21:00 87/33 04/05/19 21:00 55 24 87/33 (51) 95 04/05/19 20:30 58 27 92/29 (50) 99 04/05/19 20:00 63 04/05/19 20:00 98.5 60 28 90/36 (54) 99 04/05/19 20:00 102/38 04/05/19 20:00 Room Air 04/05/19 19:30 62 27 85/41 (56) 99 04/05/19 19:00 90/46 04/05/19 19:00 63 22 90/46 (61) 99 04/05/19 18:30 62 24 98/39 (58) 99 04/05/19 18:00 61 18 96/48 (64) 100 04/05/19 18:00 100/39 04/05/19 17:43 78/38 04/05/19 17:30 66 26 78/38 (51) 100 04/05/19 17:00 101/46 04/05/19 17:00 61 26 107/43 (64) 99 04/05/19 16:30 63 25 91/38 (55) 87 04/05/19 16:00 Room Air 04/05/19 16:00 98/42 04/05/19 16:00 99.2 64 23 108/49 (68) 99 04/05/19 16:00 61 04/05/19 15:30 64 20 104/51 (68) 04/05/19 15:00 110/44 04/05/19 15:00 72 19 94/80 (85) 77 04/05/19 14:30 61 17 120/53 (75) 100 04/05/19 14:00 59 25 96/53 (67) 100 04/05/19 14:00 114/48 04/05/19 13:30 56 24 116/52 (73) 100 04/05/19 13:00 112/50 04/05/19 13:00 58 22 114/42 (66) 99 04/05/19 12:30 58 22 119/64 (82) 100 04/05/19 12:00 56 04/05/19 12:00 98.9 58 19 113/46 (68) 68 04/05/19 12:00 Room Air 04/05/19 12:00 106/76 04/05/19 11:30 54 20 108/55 (72) 100 04/05/19 11:30 90/47 04/05/19 11:00 89/46 04/05/19 11:00 57 20 114/45 (68) 100 04/05/19 10:30 57 23 100/78 (85) 88 04/05/19 10:30 85/49 04/05/19 10:00 105/44 04/05/19 10:00 58 20 100/77 (85) 04/05/19 09:30 100/45 04/05/19 09:30 55 23 117/93 (101) 72 04/05/19 09:00 108/56 04/05/19 09:00 55 91/64 04/05/19 09:00 56 17 124/60 (81) 100 7/29/19 08:30 57 20 103/64 (77) 100 04/05/19 08:30 93/43 Labs: Labs Test 04/03/19 16:30 04/03/19 17:30 04/03/19 17:55 04/03/19 18:01 White Blood Count 17.5 K/UL (4.8-10.8) Red Blood Count 4.72 M/UL (4.20-5.40) Hemoglobin 12.9 G/DL (12.0-16.0) Hematocrit 42.3 % (37.0-47.0) Mean Corpuscular Volume 90 FL (80-99) Mean Corpuscular Hemoglobin 27.4 PG (27.0-31.0) Mean Corpuscular Hemoglobin Concent 30.5 G/DL (32.0-36.0) Red Cell Distribution Width 15.6 % (11.6-14.8) Platelet Count 181 K/UL (150-450) Mean Platelet Volume 10.9 FL (6.5-10.1) Neutrophils (%) (Auto) 63.8 % (45.0-75.0) Lymphocytes (%) (Auto) 32.9 % (20.0-45.0) Monocytes (%) (Auto) 2.6 % (1.0-10.0) Eosinophils (%) (Auto) 0.0 % (0.0-3.0) Basophils (%) (Auto) 0.7 % (0.0-2.0) Sodium Level 151 MMOL/L (136-145) Potassium Level 4.4 MMOL/L (3.5-5.1) Chloride Level 111 MMOL/L (98-107) Carbon Dioxide Level 28 MMOL/L (21-32) Anion Gap 12 mmol/L (5-15) Blood Urea Nitrogen 99 mg/dL (7-18) Creatinine 2.4 MG/DL (0.55-1.30) Estimat Glomerular Filtration Rate mL/min (>60) Glucose Level 267 MG/DL (74-106) Lactic Acid Level 3.80 mmol/L (0.4-2.0) 3.00 mmol/L (0.66-2.22) Calcium Level 9.4 MG/DL (8.5-10.1) Total Bilirubin 0.5 MG/DL (0.2-1.0) Aspartate Amino Transf (AST/SGOT) 212 U/L (15-37) Alanine Aminotransferase (ALT/SGPT) 273 U/L (12-78) Alkaline Phosphatase 42 U/L (46-116) Total Creatine Kinase 438 U/L (26-308) Creatine Kinase MB 3.5 NG/ML (0.0-3.6) Creatine Kinase MB Relative Index 0.7 Troponin I 0.088 ng/mL (0.000-0.056) Pro-B-Type Natriuretic Peptide 2639 pg/mL (0-125) Total Protein 10.6 G/DL (6.4-8.2) Albumin 2.4 G/DL (3.4-5.0) Globulin 8.2 g/dL Albumin/Globulin Ratio 0.3 (1.0-2.7) Urine Color Yellow Urine Appearance Slightly cloudy Urine pH 5 (4.5-8.0) Urine Specific [place] 1.030 (1.005-1.035) Urine Protein 3+ (NEGATIVE) Urine Glucose (UA) Negative (NEGATIVE) Urine Ketones Negative (NEGATIVE) Urine Blood 4+ (NEGATIVE) Urine Nitrite Negative (NEGATIVE) Urine Bilirubin Negative (NEGATIVE) Urine Urobilinogen Normal MG/DL (0.0-1.0) Urine Leukocyte Esterase 3+ (NEGATIVE) Urine RBC 10-15 /HPF (0 - 2) Urine WBC 20-30 /HPF (0 - 2) Urine Squamous Epithelial Cells Moderate /LPF (NONE/OCC) Urine Bacteria Many /HPF (NONE) Urine Yeast Many /HPF (NONE) Arterial Blood pH 7.448 (7.350-7.450) Arterial Blood Partial Pressure CO2 30.0 mmHg (35.0-45.0) Arterial Blood Partial Pressure O2 141.8 mmHg (75.0-100.0) Arterial Blood HCO3 20.3 mmol/L (22.0-26.0) Arterial Blood Oxygen Saturation 97.9 % (95-100) Arterial Blood Base Excess -2.9 (-2-2) Jonah Test Positive Test 04/04/19 03:10 04/04/19 05:00 04/04/19 12:00 04/04/19 18:10 Lactic Acid Level 1.40 mmol/L (0.4-2.0) 1.80 mmol/L (0.4-2.0) White Blood Count 18.8 K/UL (4.8-10.8) Red Blood Count 3.06 M/UL (4.20-5.40) Hemoglobin 8.6 G/DL (12.0-16.0) Hematocrit 27.4 % (37.0-47.0) Mean Corpuscular Volume 90 FL (80-99) Mean Corpuscular Hemoglobin 28.1 PG (27.0-31.0) Mean Corpuscular Hemoglobin Concent 31.4 G/DL (32.0-36.0) Red Cell Distribution Width 16.2 % (11.6-14.8) Platelet Count 107 K/UL (150-450) Mean Platelet Volume 10.3 FL (6.5-10.1) Neutrophils (%) (Auto) % (45.0-75.0) Lymphocytes (%) (Auto) % (20.0-45.0) Monocytes (%) (Auto) % (1.0-10.0) Eosinophils (%) (Auto) % (0.0-3.0) Basophils (%) (Auto) % (0.0-2.0) Differential Total Cells Counted 100 Neutrophils % (Manual) 37 % (45-75) Lymphocytes % (Manual) 54 % (20-45) Monocytes % (Manual) 9 % (1-10) Eosinophils % (Manual) 0 % (0-3) Basophils % (Manual) 0 % (0-2) Band Neutrophils 0 % (0-8) Platelet Estimate Decreased Platelet Morphology Normal Hypochromasia 1+ Anisocytosis 1+ Sodium Level 156 MMOL/L (136-145) Potassium Level 2.9 MMOL/L (3.5-5.1) Chloride Level 123 MMOL/L (98-107) Carbon Dioxide Level 23 MMOL/L (21-32) Anion Gap 10 mmol/L (5-15) Blood Urea Nitrogen 79 mg/dL (7-18) Creatinine 1.5 MG/DL (0.55-1.30) Estimat Glomerular Filtration Rate mL/min (>60) Glucose Level 145 MG/DL (74-106) Calcium Level 7.6 MG/DL (8.5-10.1) Random Vancomycin Level 2.7 ug/mL Stool Occult Blood Negative (NEGATIVE) Test 04/05/19 04:00 White Blood Count 14.0 K/UL (4.8-10.8) Red Blood Count 3.07 M/UL (4.20-5.40) Hemoglobin 8.5 G/DL (12.0-16.0) Hematocrit 27.2 % (37.0-47.0) Mean Corpuscular Volume 89 FL (80-99) Mean Corpuscular Hemoglobin 27.7 PG (27.0-31.0) Mean Corpuscular Hemoglobin Concent 31.3 G/DL (32.0-36.0) Red Cell Distribution Width 15.9 % (11.6-14.8) Platelet Count 75 K/UL (150-450) Mean Platelet Volume 10.7 FL (6.5-10.1) Neutrophils (%) (Auto) % (45.0-75.0) Lymphocytes (%) (Auto) % (20.0-45.0) Monocytes (%) (Auto) % (1.0-10.0) Eosinophils (%) (Auto) % (0.0-3.0) Basophils (%) (Auto) % (0.0-2.0) Sodium Level 141 MMOL/L (136-145) Potassium Level 4.5 MMOL/L (3.5-5.1) Chloride Level 112 MMOL/L (98-107) Carbon Dioxide Level 24 MMOL/L (21-32) Anion Gap 5 mmol/L (5-15) Blood Urea Nitrogen 38 mg/dL (7-18) Creatinine 0.9 MG/DL (0.55-1.30) Estimat Glomerular Filtration Rate mL/min (>60) Glucose Level 113 MG/DL (74-106) Calcium Level 7.8 MG/DL (8.5-10.1) Magnesium Level 2.1 MG/DL (1.8-2.4) Random Vancomycin Level 6.0 ug/mL Objective: GENERAL: Chronically ill-appearing female, currently more alert HEENT: Negative. NECK: Supple. The patient is significantly contracted at this time. LUNGS: improved rhonchi. Moderate air entry. no wheeze CARDIAC: S1 and S2. The patient with regular rate and rhythm without murmurs, rubs, gallops. ABDOMEN: Soft, nontender. G-tube in place. no distention EXTREMITIES: No cyanosis, clubbing, or edema. Significant contractures. NEUROLOGICALLY: contracted, difficult to fully assess, more alert SKIN: Noted. Micro: Microbiology Date/Time Source Procedure Growth Status 04/03/19 16:30 Blood Blood Culture - Preliminary NO GROWTH AFTER 48 HOURS Resulted 04/03/19 16:30 Blood Blood Culture - Preliminary NO GROWTH AFTER 48 HOURS Resulted 04/03/19 20:00 Nasal Nares MRSA Culture - Final Staphylococcus Aureus - Mrsa Complete 04/03/19 17:30 Urine,Clean Catch Urine Culture - Preliminary Resulted 04/03/19 20:00 Rectum VRE Culture - Final NO VANCOMYCIN RESISTANT ENTEROCOCCUS ... Complete 04/03/19 20:00 Rectum - Final NO CARBAPENEM-RESISTANT ENTEROBACTERI... Complete Ac Bernal MD Apr 06, 2019 08:08
[2019-04-06] MEDS: Vancomycin 500mg/D5W 110ml IVPB SCH ×2 (08:25)
[2019-04-06] MEDS: Docusate 100mg/10ml Liq GT SCH ×2 (08:25→17:41)
[2019-04-06] MEDS: Milk of Magnesia 30ml Ud GT SCH (08:25)
[2019-04-06] MEDS: Ascorbic Acid 500mg tab GT SCH (08:26)
[2019-04-06] MEDS: Brimonidine 0.2% Opth Sol BOTH EYES SCH ×3 (08:26→17:41)
[2019-04-06] MEDS: Multivitamin w/Minerals tab ORAL SCH (08:26)
[2019-04-06] MEDS: Heparin 5000 units/ml inj SUBQ SCH ×2 (08:26→20:29)
--- NOTE | 2019-04-06 09:11 | NUR ---
NURSE NOTES: Continue dopamine at 10mcg/kg/hr. Held heparin 5k subq due to low plt =75 and Amlodipine as patient is on a pressor. Oral care done, turned and repositioned. Patient is somewhat resistant to care, frequent comforting and reorientation required.
--- NOTE | 2019-04-06 10:29 | NUR ---
NURSE NOTES: Dr. Nieves at bedside making rounds. Titrated Dopamine to 8mcg/kg/hr, BP 120/55, MAP 68. Will continue to monitor.
--- NOTE | 2019-04-06 11:11 | NUR ---
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 98.6 HR 50 RR 18 B/P 112/49 IS: IVF NS@75ML/HR DOPAMINE GTT VANCO IV MEROPENEM IV HEPARIN SUBC ICU STATUS
[2019-04-06 11:20] LABS: HEMATOCRIT 24.2 % (37.0-47.0); HEMOGLOBIN 7.7 G/DL (12.0-16.0); MEAN CORPUSCULAR VOLUME 87 FL (80-99); PLATELET COUNT 70 K/UL (150-450); RED BLOOD COUNT 2.77 M/UL (4.20-5.40); WHITE BLOOD COUNT 6.9 K/UL (4.8-10.8)
--- NOTE | 2019-04-06 11:34 | Infectious Diseases Prog Note ---
Assessment/Plan Assessment/Plan antibiotics : vancomycin iv, meropenem A 1. UTI 2. septic shock 3. renal failure improving 4. bilateral renal stones 5, dementia P 1. continue iv vancomycin, meropenem 2. will follow up cultures Subjective ROS Limited/Unobtainable: Yes Allergies: Coded Allergies: MORPHINE (Verified Allergy, Unknown, 07/18/09) Objective Vital Signs Last 24 Hour Vital Signs Date Time Temp Pulse Resp B/P (MAP) Pulse Ox O2 Delivery O2 Flow Rate FiO2 04/06/19 10:30 120/55 04/06/19 10:30 53 18 122/50 (74) 100 04/06/19 10:00 56 18 112/49 (70) 100 04/06/19 09:30 50 18 130/51 (77) 100 04/06/19 09:00 57 18 116/56 (76) 100 04/06/19 08:30 56 17 124/32 (62) 100 04/06/19 08:26 51 124/31 04/06/19 08:00 58 04/06/19 08:00 Room Air 04/06/19 08:00 58 17 105/45 (65) 100 04/06/19 07:30 98.6 56 17 111/51 (71) 100 04/06/19 07:00 51 23 124/31 (62) 99 04/06/19 07:00 124/31 04/06/19 06:30 52 24 116/36 (62) 98 04/06/19 06:00 50 21 114/40 (64) 97 04/06/19 06:00 114/40 04/06/19 05:30 52 24 99/36 (57) 99 04/06/19 05:13 88/25 04/06/19 05:12 88/25 04/06/19 05:00 59 25 105/29 (54) 86 04/06/19 05:00 105/29 04/06/19 04:30 61 23 96/47 (63) 100 04/06/19 04:00 41 04/06/19 04:00 100/34 04/06/19 04:00 Room Air 04/06/19 04:00 98.2 57 22 114/37 (62) 100 04/06/19 03:30 56 19 115/43 (67) 98 04/06/19 03:00 61 20 100/82 (88) 99 04/06/19 03:00 100/82 04/06/19 02:30 63 21 119/43 (68) 87 04/06/19 02:00 109/39 04/06/19 02:00 53 26 111/21 (51) 99 04/06/19 01:30 52 22 108/47 (67) 98 04/06/19 01:00 110/34 04/06/19 01:00 51 23 110/34 (59) 97 04/06/19 00:30 54 23 123/44 (70) 78 04/06/19 00:00 Room Air 04/06/19 00:00 55 04/06/19 00:00 99.3 58 25 123/30 (61) 99 04/06/19 00:00 103/57 04/05/19 23:30 56 25 114/37 (62) 97 04/05/19 23:00 58 22 105/37 (59) 96 04/05/19 23:00 105/37 04/05/19 22:30 63 21 102/39 (60) 97 04/05/19 22:00 110/39 04/05/19 22:00 61 25 110/39 (62) 95 04/05/19 21:30 53 24 92/42 (59) 95 04/05/19 21:00 87/33 04/05/19 21:00 55 24 87/33 (51) 95 04/05/19 20:30 58 27 92/29 (50) 99 04/05/19 20:00 63 04/05/19 20:00 98.5 60 28 90/36 (54) 99 04/05/19 20:00 102/38 04/05/19 20:00 Room Air 04/05/19 19:30 62 27 85/41 (56) 99 04/05/19 19:00 90/46 04/05/19 19:00 63 22 90/46 (61) 99 04/05/19 18:30 62 24 98/39 (58) 99 04/05/19 18:00 61 18 96/48 (64) 100 04/05/19 18:00 100/39 04/05/19 17:43 78/38 04/05/19 17:30 66 26 78/38 (51) 100 04/05/19 17:00 101/46 04/05/19 17:00 61 26 107/43 (64) 99 04/05/19 16:30 63 25 91/38 (55) 87 04/05/19 16:00 Room Air 04/05/19 16:00 98/42 04/05/19 16:00 99.2 64 23 108/49 (68) 99 04/05/19 16:00 61 04/05/19 15:30 64 20 104/51 (68) 04/05/19 15:00 110/44 04/05/19 15:00 72 19 94/80 (85) 77 04/05/19 14:30 61 17 120/53 (75) 100 04/05/19 14:00 59 25 96/53 (67) 100 04/05/19 14:00 114/48 04/05/19 13:30 56 24 116/52 (73) 100 04/05/19 13:00 112/50 04/05/19 13:00 58 22 114/42 (66) 99 04/05/19 12:30 58 22 119/64 (82) 100 04/05/19 12:00 56 04/05/19 12:00 98.9 58 19 113/46 (68) 68 04/05/19 12:00 Room Air 04/05/19 12:00 106/76 04/05/19 11:30 54 20 108/55 (72) 100 04/05/19 11:30 90/47 Height (Feet): 5 Height (Inches): 4.00 Weight (Pounds): 75 Respiratory/Chest: lungs clear Cardiovascular: normal rate, regular rhythm, no gallop/murmur Abdomen: soft, non tender Extremities: no edema, other - left subclavian Microbiology Date/Time Source Procedure Growth Status 04/03/19 16:30 Blood Blood Culture - Preliminary NO GROWTH AFTER 48 HOURS Resulted 04/03/19 16:30 Blood Blood Culture - Preliminary NO GROWTH AFTER 48 HOURS Resulted 04/03/19 20:00 Nasal Nares MRSA Culture - Final Staphylococcus Aureus - Mrsa Complete 04/03/19 17:30 Urine,Clean Catch Urine Culture - Preliminary Resulted 04/03/19 20:00 Rectum VRE Culture - Final NO VANCOMYCIN RESISTANT ENTEROCOCCUS ... Complete 04/03/19 20:00 Rectum - Final NO CARBAPENEM-RESISTANT ENTEROBACTERI... Complete Laboratory Tests Test 04/06/19 11:00 White Blood Count 6.9 K/UL (4.8-10.8) # Red Blood Count 2.77 M/UL (4.20-5.40) L Hemoglobin 7.7 G/DL (12.0-16.0) L Hematocrit 24.2 % (37.0-47.0) L Mean Corpuscular Volume 87 FL (80-99) Mean Corpuscular Hemoglobin 27.7 PG (27.0-31.0) Mean Corpuscular Hemoglobin Concent 31.6 G/DL (32.0-36.0) L Red Cell Distribution Width 15.0 % (11.6-14.8) H Platelet Count 70 K/UL (150-450) L Mean Platelet Volume 11.8 FL (6.5-10.1) H Neutrophils (%) (Auto) % (45.0-75.0) Lymphocytes (%) (Auto) % (20.0-45.0) Monocytes (%) (Auto) % (1.0-10.0) Eosinophils (%) (Auto) % (0.0-3.0) Basophils (%) (Auto) % (0.0-2.0) Neutrophils % (Manual) Pending Lymphocytes % (Manual) Pending Platelet Estimate Pending Platelet Morphology Pending Sodium Level Pending Potassium Level Pending Chloride Level Pending Carbon Dioxide Level Pending Blood Urea Nitrogen Pending Creatinine Pending Estimat Glomerular Filtration Rate Pending Glucose Level Pending Calcium Level Pending Total Bilirubin Pending Aspartate Amino Transf (AST/SGOT) Pending Alanine Aminotransferase (ALT/SGPT) Pending Alkaline Phosphatase Pending Total Protein Pending Albumin Pending Globulin Pending Current Medications Medications (Trade) Dose Ordered Sig/Marcos Route PRN Reason Start Time Stop Time Status Last Admin Dose Admin Acetaminophen (Tylenol) 650 mg Q4H PRN GT Mild Pain/Temp > 100.5 04/04/19 08:15 05/04/19 08:14 04/04/19 08:23 Amlodipine Besylate (Norvasc) 5 mg DAILY GT 04/04/19 09:00 05/04/19 08:59 Ascorbic Acid (Vitamin C) 500 mg DAILY GT 04/04/19 09:00 05/04/19 08:59 04/06/19 08:26 Bisacodyl (Dulcolax) 10 mg PRN PRN RECTAL Constipation 04/03/19 21:30 05/03/19 21:29 Brimonidine Tartrate (Alphagan) 1 drop TID BOTH EYES 04/04/19 09:00 05/04/19 08:59 04/06/19 08:26 Chlorhexidine Gluconate (Kylee-Hex 2%) 1 applic DAILY@2000 TOPIC 04/05/19 20:00 05/05/19 19:59 04/05/19 19:52 Docusate Sodium (Colace) 100 mg BID GT 04/04/19 09:00 05/04/19 08:59 04/06/19 08:25 Dopamine HCl/ Dextrose 250 ml @ 0 mls/hr Q24H IV 04/04/19 21:17 05/04/19 21:16 04/06/19 05:13 Heparin Sodium (Porcine) (Heparin 5000 units/ml) 5,000 units EVERY 12 HOURS SUBQ 04/04/19 09:00 05/04/19 08:59 04/04/19 20:00 Lorazepam (Ativan) 1 mg Q4HR PRN GT For Anxiety 04/03/19 21:30 04/10/19 21:29 04/05/19 08:36 Magnesium Hydroxide (Mom) 30 ml DAILY GT 04/04/19 09:00 05/04/19 08:59 04/06/19 08:25 Meropenem 1 gm/ Sodium Chloride 55 ml @ 110 mls/hr Q12H IVPB 04/05/19 17:00 04/10/19 16:59 04/06/19 05:12 Multivitamins Therapeutic (Therapeutic Multivitamin) 1 ea DAILY ORAL 04/04/19 09:00 05/04/19 08:59 04/06/19 08:26 Norepinephrine Bitartrate 8 mg/ Dextrose 250 ml @ 0 mls/hr Q24H IV 04/03/19 21:15 05/03/19 21:14 04/04/19 20:00 Olanzapine (ZyPREXA) 5 mg TID GT 04/04/19 09:00 05/04/19 08:59 04/06/19 08:26 Pantoprazole (Protonix) 40 mg DAILY ORAL 04/04/19 09:00 05/04/19 08:59 04/06/19 08:26 Sodium 1,000 ml @ 75 mls/hr [id number] IV 04/05/19 10:30 05/05/19 10:29 04/06/19 00:00 Vancomycin HCl (Vanco rx to dose) 1 ea DAILY PRN MISC Per rx protocol 04/03/19 21:30 05/03/19 21:29 Vancomycin HCl 500 mg/Dextrose 110 ml @ 110 mls/hr Q24H IVPB 04/06/19 09:00 04/11/19 08:59 04/06/19 08:25 Zolpidem Tartrate (Ambien) 5 mg BEDTIME PRN GT Insomnia 04/03/19 21:30 04/10/19 21:29 Lindsay Poole MD Apr 06, 2019 11:34
[2019-04-06 11:35] LABS: ALANINE AMINOTRANSFERASE 205 U/L (12-78); ALBUMIN 1.8 G/DL (3.4-5.0); ALBUMIN/GLOBULIN RATIO 0.3 (1.0-2.7); ALKALINE PHOSPHATASE 39 U/L (46-116); ANION GAP 9 mmol/L (5-15); ASPARTATE AMINO TRANSFERASE 52 U/L (15-37); BILIRUBIN,TOTAL 0.4 MG/DL (0.2-1.0); BLOOD UREA NITROGEN 33 mg/dL (7-18); CARBON DIOXIDE 20 MMOL/L (21-32); CHLORIDE 112 MMOL/L (98-107); POTASSIUM 4.7 MMOL/L (3.5-5.1); SODIUM 141 MMOL/L (136-145)
--- NOTE | 2019-04-06 11:48 | Nephrology Progress Note ---
Assessment/Plan Plan HELENE resolving. Eunatremic Subjective Subjective Nonverbal Objective Objective Last 24 Hour Vital Signs Date Time Temp Pulse Resp B/P (MAP) Pulse Ox O2 Delivery O2 Flow Rate FiO2 04/06/19 10:30 120/55 04/06/19 10:30 53 18 122/50 (74) 100 04/06/19 10:00 56 18 112/49 (70) 100 04/06/19 09:30 50 18 130/51 (77) 100 04/06/19 09:00 57 18 116/56 (76) 100 04/06/19 08:30 56 17 124/32 (62) 100 04/06/19 08:26 51 124/31 04/06/19 08:00 58 04/06/19 08:00 Room Air 04/06/19 08:00 58 17 105/45 (65) 100 04/06/19 07:30 98.6 56 17 111/51 (71) 100 04/06/19 07:00 51 23 124/31 (62) 99 04/06/19 07:00 124/31 04/06/19 06:30 52 24 116/36 (62) 98 04/06/19 06:00 50 21 114/40 (64) 97 04/06/19 06:00 114/40 04/06/19 05:30 52 24 99/36 (57) 99 04/06/19 05:13 88/25 04/06/19 05:12 88/25 04/06/19 05:00 59 25 105/29 (54) 86 04/06/19 05:00 105/29 04/06/19 04:30 61 23 96/47 (63) 100 04/06/19 04:00 41 04/06/19 04:00 100/34 04/06/19 04:00 Room Air 04/06/19 04:00 98.2 57 22 114/37 (62) 100 04/06/19 03:30 56 19 115/43 (67) 98 04/06/19 03:00 61 20 100/82 (88) 99 04/06/19 03:00 100/82 04/06/19 02:30 63 21 119/43 (68) 87 04/06/19 02:00 109/39 04/06/19 02:00 53 26 111/21 (51) 99 04/06/19 01:30 52 22 108/47 (67) 98 04/06/19 01:00 110/34 04/06/19 01:00 51 23 110/34 (59) 97 04/06/19 00:30 54 23 123/44 (70) 78 04/06/19 00:00 Room Air 04/06/19 00:00 55 04/06/19 00:00 99.3 58 25 123/30 (61) 99 04/06/19 00:00 103/57 04/05/19 23:30 56 25 114/37 (62) 97 04/05/19 23:00 58 22 105/37 (59) 96 04/05/19 23:00 105/37 04/05/19 22:30 63 21 102/39 (60) 97 04/05/19 22:00 110/39 04/05/19 22:00 61 25 110/39 (62) 95 04/05/19 21:30 53 24 92/42 (59) 95 04/05/19 21:00 87/33 04/05/19 21:00 55 24 87/33 (51) 95 04/05/19 20:30 58 27 92/29 (50) 99 04/05/19 20:00 63 04/05/19 20:00 98.5 60 28 90/36 (54) 99 04/05/19 20:00 102/38 04/05/19 20:00 Room Air 04/05/19 19:30 62 27 85/41 (56) 99 04/05/19 19:00 90/46 04/05/19 19:00 63 22 90/46 (61) 99 04/05/19 18:30 62 24 98/39 (58) 99 04/05/19 18:00 61 18 96/48 (64) 100 04/05/19 18:00 100/39 04/05/19 17:43 78/38 04/05/19 17:30 66 26 78/38 (51) 100 04/05/19 17:00 101/46 04/05/19 17:00 61 26 107/43 (64) 99 04/05/19 16:30 63 25 91/38 (55) 87 04/05/19 16:00 Room Air 04/05/19 16:00 98/42 04/05/19 16:00 99.2 64 23 108/49 (68) 99 04/05/19 16:00 61 04/05/19 15:30 64 20 104/51 (68) 04/05/19 15:00 110/44 04/05/19 15:00 72 19 94/80 (85) 77 04/05/19 14:30 61 17 120/53 (75) 100 04/05/19 14:00 59 25 96/53 (67) 100 04/05/19 14:00 114/48 04/05/19 13:30 56 24 116/52 (73) 100 04/05/19 13:00 112/50 04/05/19 13:00 58 22 114/42 (66) 99 04/05/19 12:30 58 22 119/64 (82) 100 04/05/19 12:00 56 04/05/19 12:00 98.9 58 19 113/46 (68) 68 04/05/19 12:00 Room Air 04/05/19 12:00 106/76 Intake and Output 04/05/19 04/06/19 19:00 07:00 Intake Total 2415.208 ml 1817.486 ml Output Total 2225 ml 1075 ml Balance 190.208 ml 742.486 ml Intake Free Water 200 ml IV Total 2065.208 ml 1217.486 ml Tube Feeding 150 ml 600 ml Output Urine Total 2225 ml 1075 ml Laboratory Tests 04/06/19 11:00: White Blood Count 6.9#, Red Blood Count 2.77L, Hemoglobin 7.7L, Hematocrit 24.2L , Mean Corpuscular Volume 87, Mean Corpuscular Hemoglobin 27.7, Mean Corpuscular Hemoglobin Concent 31.6L, Red Cell Distribution Width 15.0H, Platelet Count 70L, Mean Platelet Volume 11.8H, Neutrophils (%) (Auto) , Lymphocytes (%) (Auto) , Monocytes (%) (Auto) , Eosinophils (%) (Auto) , Basophils (%) (Auto) , Neutrophils % (Manual) [Pending], Lymphocytes % (Manual) [Pending], Platelet Estimate [Pending], Platelet Morphology [Pending], Sodium Level 141, Potassium Level 4.7, Chloride Level 112H, Carbon Dioxide Level 20L, Anion Gap 9, Blood Urea Nitrogen 33H, Creatinine 1.0, Estimat Glomerular Filtration Rate , Glucose Level 174H, Calcium Level 8.0L, Total Bilirubin 0.4, Aspartate Amino Transf (AST/SGOT) 52H, Alanine Aminotransferase (ALT/SGPT) 205H , Alkaline Phosphatase 39L, Total Protein 7.8, Albumin 1.8L, Globulin 6.0, Albumin/Globulin Ratio 0.3L Height (Feet): 5 Height (Inches): 4.00 Weight (Pounds): 75 Objective CV RR Lungs B Cristina Hobbs SNT. BS + E No CCE Arley Saha MD Apr 06, 2019 11:48
--- NOTE | 2019-04-06 12:15 | NUR ---
NURSE NOTES: Notified Dr. Nieves regarding Hgb=7.7/Hct=24.2 and plt=70. Received orders to transfer x1 PRBC.
--- NOTE | 2019-04-06 12:29 | Surgery Progress Note ---
Surgery Progress Note Subjective Procedure Performed left subclavian central venous catheter insertion Additional Comments Patient seen and examined bedside. Is fairly awake and alert today. States that she wants to get out of here and go home. Denies any nausea vomiting fever chills. Is still intermittently hypotensive on dopamine drip but decreasing requirement. Line in place and clear. Echo ordered. Anemia. Transfusion today. Objective Last 24 Hour Vital Signs Date Time Temp Pulse Resp B/P (MAP) Pulse Ox O2 Delivery O2 Flow Rate FiO2 04/06/19 12:00 98.9 57 18 106/84 (91) 100 04/06/19 12:00 Room Air 04/06/19 11:30 60 18 110/64 (79) 100 04/06/19 11:00 105/50 04/06/19 10:30 120/55 04/06/19 10:30 53 18 122/50 (74) 100 04/06/19 10:00 116/50 04/06/19 10:00 56 18 112/49 (70) 100 04/06/19 09:30 50 18 130/51 (77) 100 04/06/19 09:00 57 18 116/56 (76) 100 04/06/19 09:00 130/51 04/06/19 08:30 56 17 124/32 (62) 100 04/06/19 08:26 51 124/31 04/06/19 08:00 58 04/06/19 08:00 Room Air 04/06/19 08:00 124/32 04/06/19 08:00 58 17 105/45 (65) 100 04/06/19 07:30 98.6 56 17 111/51 (71) 100 04/06/19 07:00 51 23 124/31 (62) 99 04/06/19 07:00 124/31 04/06/19 06:30 52 24 116/36 (62) 98 04/06/19 06:00 50 21 114/40 (64) 97 04/06/19 06:00 114/40 04/06/19 05:30 52 24 99/36 (57) 99 04/06/19 05:13 88/25 04/06/19 05:12 88/25 04/06/19 05:00 59 25 105/29 (54) 86 04/06/19 05:00 105/29 04/06/19 04:30 61 23 96/47 (63) 100 04/06/19 04:00 41 04/06/19 04:00 100/34 04/06/19 04:00 Room Air 04/06/19 04:00 98.2 57 22 114/37 (62) 100 04/06/19 03:30 56 19 115/43 (67) 98 04/06/19 03:00 61 20 100/82 (88) 99 04/06/19 03:00 100/82 04/06/19 02:30 63 21 119/43 (68) 87 04/06/19 02:00 109/39 04/06/19 02:00 53 26 111/21 (51) 99 04/06/19 01:30 52 22 108/47 (67) 98 04/06/19 01:00 110/34 04/06/19 01:00 51 23 110/34 (59) 97 04/06/19 00:30 54 23 123/44 (70) 78 04/06/19 00:00 Room Air 04/06/19 00:00 55 04/06/19 00:00 99.3 58 25 123/30 (61) 99 04/06/19 00:00 103/57 04/05/19 23:30 56 25 114/37 (62) 97 04/05/19 23:00 58 22 105/37 (59) 96 04/05/19 23:00 105/37 04/05/19 22:30 63 21 102/39 (60) 97 04/05/19 22:00 110/39 04/05/19 22:00 61 25 110/39 (62) 95 04/05/19 21:30 53 24 92/42 (59) 95 04/05/19 21:00 87/33 04/05/19 21:00 55 24 87/33 (51) 95 04/05/19 20:30 58 27 92/29 (50) 99 04/05/19 20:00 63 04/05/19 20:00 98.5 60 28 90/36 (54) 99 04/05/19 20:00 102/38 04/05/19 20:00 Room Air 04/05/19 19:30 62 27 85/41 (56) 99 04/05/19 19:00 90/46 04/05/19 19:00 63 22 90/46 (61) 99 04/05/19 18:30 62 24 98/39 (58) 99 04/05/19 18:00 61 18 96/48 (64) 100 04/05/19 18:00 100/39 04/05/19 17:43 78/38 04/05/19 17:30 66 26 78/38 (51) 100 04/05/19 17:00 101/46 04/05/19 17:00 61 26 107/43 (64) 99 04/05/19 16:30 63 25 91/38 (55) 87 04/05/19 16:00 Room Air 04/05/19 16:00 98/42 04/05/19 16:00 99.2 64 23 108/49 (68) 99 04/05/19 16:00 61 04/05/19 15:30 64 20 104/51 (68) 04/05/19 15:00 110/44 04/05/19 15:00 72 19 94/80 (85) 77 04/05/19 14:30 61 17 120/53 (75) 100 04/05/19 14:00 59 25 96/53 (67) 100 04/05/19 14:00 114/48 04/05/19 13:30 56 24 116/52 (73) 100 04/05/19 13:00 112/50 04/05/19 13:00 58 22 114/42 (66) 99 04/05/19 12:30 58 22 119/64 (82) 100 I&O Intake and Output 04/05/19 04/06/19 19:00 07:00 Intake Total 2415.208 ml 1817.486 ml Output Total 2225 ml 1075 ml Balance 190.208 ml 742.486 ml Intake Free Water 200 ml IV Total 2065.208 ml 1217.486 ml Tube Feeding 150 ml 600 ml Output Urine Total 2225 ml 1075 ml Dressing: dry Wound: clean Cardiovascular: RSR Respiratory: clear Abdomen: soft, non-tender, present bowel sounds, non-distended Extremities: no cyanosis, other Laboratory Tests Test 04/06/19 11:00 White Blood Count 6.9 K/UL (4.8-10.8) # Red Blood Count 2.77 M/UL (4.20-5.40) L Hemoglobin 7.7 G/DL (12.0-16.0) L Hematocrit 24.2 % (37.0-47.0) L Mean Corpuscular Volume 87 FL (80-99) Mean Corpuscular Hemoglobin 27.7 PG (27.0-31.0) Mean Corpuscular Hemoglobin Concent 31.6 G/DL (32.0-36.0) L Red Cell Distribution Width 15.0 % (11.6-14.8) H Platelet Count 70 K/UL (150-450) L Mean Platelet Volume 11.8 FL (6.5-10.1) H Neutrophils (%) (Auto) % (45.0-75.0) Lymphocytes (%) (Auto) % (20.0-45.0) Monocytes (%) (Auto) % (1.0-10.0) Eosinophils (%) (Auto) % (0.0-3.0) Basophils (%) (Auto) % (0.0-2.0) Neutrophils % (Manual) Pending Lymphocytes % (Manual) Pending Platelet Estimate Pending Platelet Morphology Pending Sodium Level 141 MMOL/L (136-145) Potassium Level 4.7 MMOL/L (3.5-5.1) Chloride Level 112 MMOL/L (98-107) H Carbon Dioxide Level 20 MMOL/L (21-32) L Anion Gap 9 mmol/L (5-15) Blood Urea Nitrogen 33 mg/dL (7-18) H Creatinine 1.0 MG/DL (0.55-1.30) Estimat Glomerular Filtration Rate mL/min (>60) Glucose Level 174 MG/DL (74-106) H Calcium Level 8.0 MG/DL (8.5-10.1) L Total Bilirubin 0.4 MG/DL (0.2-1.0) Aspartate Amino Transf (AST/SGOT) 52 U/L (15-37) H Alanine Aminotransferase (ALT/SGPT) 205 U/L (12-78) H Alkaline Phosphatase 39 U/L (46-116) L Total Protein 7.8 G/DL (6.4-8.2) Albumin 1.8 G/DL (3.4-5.0) L Globulin 6.0 g/dL Albumin/Globulin Ratio 0.3 (1.0-2.7) L Plan Problems: (1) Abnormal LFTs Assessment & Plan: likely related to hypotension and sepsis will trend Echo ordered and results noted. (2) Septic shock Assessment & Plan: 79F in septic shock, hypotensive, on pressors, leukocytosis , lactic acidosis unable to obtain peripheral line has IO but not safe in elderly in her condition needs central venous access. see note IV abx labs improving exam stable iv fluids will follow with recs (3) Decubitus skin ulcer Assessment & Plan: Pt presented on admission with contractures and multiple pressure injuries. Non-Blanchable erythema without induration or fluctuance noted to R scapula (L) 4cm x (W)3.2cm. Two partial thickness pressure injuries noted to R thoracic area-Proximal wound is a partial thickness wound. Base of wound is moist and viable with surrounding non-blanching erythema without induration/fluctuance (L)2.5cm x (W) 3cm. Inferior wound in close proximity to above wound -Base of wound is moist and viable with surrounding non-Blanching erythema without induration/ fluctuance (L)3.5cm x (W)2cm. DTPI noted to L trochanter. Base of wound is purple with surrounding maroon borders. Base of wound is indurated. Periwound without erythema or induration.(L )4.3cm x (W)4.2cm. DTPI noted to R trochanter.Base of wound is purple with surrounding maroon discoloration. Base of wound is indurated. Non-blanchable erythema without fluctuance periwound. (L)7.3cm x (W)7.2cm. DTPI noted to sacrum. Base of wound is indurated- purple with maroon areas. Non- blanching erythema without fluctuance or induration periwound. DTPI that is partially opened along borders distal /lateral R foot.Base of wound is fluctuant and maroon in colour .No exudate noted. (L)3cm x (W)2.5cm. Periwound is pink and blanchable. Bilat heels and malleoli each feet are pink and blanchable. No other areas of concerns noted. Tx.Plan: Apply Cavilon Skin Barrier Winnie to R scapula. Cover with Optifoam drsg. Change every 7 days and prn. Apply Cavilon Skin barrier spray to R and L Trochanters. Apply Triad paste. Cover each site with Optifoam drsg. Change every 3 days and prn. Apply Cavilon Skin Barrier Winnie to Sacrum then apply Triad. Cover with Optifoam drsg. Change every 3 days and PRN. Apply Cavilon Skin Barrier to distal/lateral R foot. Cover with Optifoam drsg. Change every 3 days and prn. Apply Triad Paste to wounds R thoracic (2 sites). Cover with Optifoam drsg. change every 3 days and prn APM/LEONARD mattress overlay. Reposition at least every 2hours or as tolerated. Place pillow between knees. Off-load heels with pillow. Alistair Nieves Apr 06, 2019 12:29
[2019-04-06] MEDS: 1/2NS w/KCl 20mEq 1000ml 1,000 ML IV SCH ×2 (13:33)
--- NOTE | 2019-04-06 14:06 | NUR ---
NURSE NOTES: MD blood consent signed by Dr. Nieves and witnessed by RN. Oral care done, turned and repostioned. Kept dry and clean. patient awake but confused. No signs of distress noted.
[2019-04-06] MEDS ORDERED: Tubing IV Secondary IV ONE (14:13)
--- NOTE | 2019-04-06 15:15 | NUR ---
NURSE NOTES: Blood transfusion started at 1455, VSS, no transfusion reaction noted.
--- NOTE | 2019-04-06 15:17 | NUR ---
RD ASSESSMENT & RECOMMENDATIONS SEE CARE ACTIVITY FOR COMPLETE ASSESSMENT DAILY ESTIMATED NEEDS: Needs based on Underweight, sepsis/ 40g 30-35 kcals/kg 6602-5409 total kcals 1.25-2 g protein/kg 50-80 g total protein 25-30 mL/kg 3040-0073 total fluid mLs NUTRITION DIAGNOSIS: * Swallowing difficulty R/T dysphagia as evidenced by pt is PEG dep. * Increased kcal/prot needs R/T underweight status,sepsis, as evidenced by low BMI per guidelines, noted w/ moderate to severe generalized wasting, elev WBC, on pressor support. CURRENT TF: Jevity 1.2 @ 50ml/hr x 24 hrs ENTERAL NUTRITION RECOMMENDATIONS: TF CHANGE TO Glucerna 1.2 @ 50ml/hr x 24 hrs to provide 1200ml, 1440kcal, 72g prot, 966ml free H2O * Rec TF change for glycemic control- pt is septic w/ hyperglycemia * REC TROPHIC FEEDS WHILE ON PRESSOR SUPPORT-> GLUCERNA 1.2 @5-10ML/HR * * HOB over 30 degrees/ water flush per MD ----- ADDITIONAL RECOMMENDATIONS: * Calibrated bedscale wt + weekly wt monitoring Bed scale: 88.7lbs EMR wt: 76lbs Recent adm wt: 96.6lbs * Wound care: KAYLEEN BID via GT * REC CARB CONTROL FORMULA FOR HYPERGLYCEMIA * TROPHIC FEEDS WHILE ON PRESSOR SUPPORT (5-10ml/hr) Monitor for hemodynamic stability -
--- NOTE | 2019-04-06 17:42 | NUR ---
NURSE NOTES: Patient turned and repositioned. Patient had x1 formed BM, cleaned and kept dry. Oral care done. Tolerating GTF well, no residual. Dopamine running at 6mcg/kg/hr.
--- NOTE | 2019-04-06 17:45 | NUR ---
NURSE NOTES: Blood transfusion completed. VSS. Patient tolerated well. No signs of distress noted.
--- NOTE | 2019-04-06 17:59 | Cardiology Report ---
APPROVED REPORT EXAM: Two-dimensional and M-mode echocardiogram with Doppler and color Doppler. INDICATION EJECTION FRACTION M-Mode DIMENSIONS IVSd0.9 (0.7-1.1cm)Left Atrium (MM)2.5 (1.6-4.0cm) LVDd3.0 (3.5-5.6cm)Aortic Root2.8 (2.0-3.7cm) PWd0.7 (0.7-1.1cm)Aortic Cusp Exc.1.6 (1.5-2.0cm) IVSs1.3 cm LVDs1.7 (2.5-4.0cm) PWs1.0 cm Technically difficult study due to combative patient . Normal left ventricular chamber size, systolic function and wall motion to extent visualized. Left ventricular ejection fraction estimated to be 55-60%. No evidence left ventricular hypertrophy. Anterior Echo-free space, may be due to pericardial fat or effusion. All other cardiac chamber sizes are within normal limits. Aortic valve calcification with normal cusp excursion . Mildly thickened mitral valve leaflets with normal excursion. Mild mitral annulus and aortic root calcification. Pulmonic valve not well visualized. IVC at normal size with slightly physiologic collapse . A color flow and spectral Doppler study was performed and revealed: No aortic insufficiency . Mitral diastolic velocities suggest reduced left ventricular relaxation c/w mild LV diastolic dysfunction (Grade I ) Trace mitral regurgitation. Mild tricuspid regurgitation. Tricuspid systolic velocities suggests peak right ventricular systolic pressure of 18mmHg.
--- NOTE | 2019-04-06 18:04 | Cardiology Report ---
APPROVED REPORT EKG Measurement Heart [id number] Accelerated Junctional rhythm Abnormal ECG
--- NOTE | 2019-04-06 19:21 | NUR ---
HAND-OFF: Report given to JUNIOR Davila.
--- NOTE | 2019-04-06 20:00 | NUR ---
NURSE NOTES: Patient received from Mya Marvin RN. Patient is awake and with disorganized speech. Patient is contracted on both upper and lower extremities. HR is 58 SR, 121/70, 99% SpO2 while on room air, afebrile. Multiple wounds noted. Jevity 1.2 @ 50ml/hr via GT. No feed residual. On a P200 mattress. Bryant catheter, handing below bladder, clear yellow urine. L subclavian TLC - 1/2NS w20KCL at 75ml/hr, dopamine off since 04/06 at 1900. S/p 1 unit PRBC today. Allergies noted. No acute distress at this time, will continue to monitor.
[2019-04-06] MEDS: Dyna-Hex 2% Top Sol 2oz TOPIC SCH (20:29)
--- NOTE | 2019-04-06 21:00 | NUR ---
NURSE NOTES: Repositioned patient and provided oral care REMAINS OFF PRESSORS SINCE 1899 BP remaining stable Continues Sinus Jonah in the 50s, currently HR is 50 SB; 2D echo 55%-60% Making good amount of urine output.
--- NOTE | 2019-04-06 22:00 | NUR ---
NURSE NOTES: Repositioned patient. Patient is asleep at this time PRESSORS REMAIN OFF BP 108/88, HR 51 SB, afebrile, Spo2 99% while on RA. Maintenance fluids ongoing. Central Line dressing is dry and intact.
[2019-04-07] VITALS (24 sets, daily range): BP systolic 90–128; BP diastolic 39–85
--- NOTE | 2019-04-07 | NUR ---
NURSE NOTES: Repositioned patient and gave oral care. Awake with disorganized speech sometimes incomprehensible PRESSORS REMAIN OFF BP 118/98, HR 58 SB, afebrile, Spo2 96% while on RA. Maintenance fluids ongoing. Central Line dressing remains dry and intact. No acute changes.
--- NOTE | 2019-04-07 02:00 | NUR ---
NURSE NOTES: Repositioned, vitals stable, NAD will continue to monitor.
[2019-04-07] MEDS: 1/2NS w/KCl 20mEq 1000ml 1,000 ML IV SCH (02:30)
--- NOTE | 2019-04-07 04:00 | NUR ---
NURSE NOTES: Repositioned, vitals stable, NAD will continue to monitor.
[2019-04-07] MEDS: Meropenem 1gm in NS 55ml IVPB SCH (05:06)
--- NOTE | 2019-04-07 06:00 | NUR ---
NURSE NOTES: Repositioned, vitals stable, NAD will continue to monitor.
--- NOTE | 2019-04-07 07:30 | NUR ---
HAND-OFF: Report given to Eom RN.
--- NOTE | 2019-04-07 07:33 | Pulmonolgy Critical Care Note ---
Critical Care - Asmt/Plan Assessment/Plan: Pulmonary CCM Progress Note Assessment/Plan IMPRESSION: Fever, likely sepsis, severe protein-calorie malnutrition, contractures, acute on chronic renal failure, hypernatremia, leukocytosis, evidence of anemia, history of hypertension, bedbound state, dementia. toxic metabolic encephalopathy PLAN nutrition as tolerated; elevate head IV antibiotics off pressors as able- still on dopa still needs ICU due to pressors off load; wound care monitor protein levels close follow up remains critical but improved IV hydration for now renal parameters improved d/w consultants and ancillary staff medications/laboratory data/nursing notes/ICU care reviewed in detail note reviewed and edited care discussed with RN and RT ICU time spent 38 minutes Critical Care - Subjective Interval Events: still on dopamine wound care reviewed tolerating feeds ROS Limited/Unobtainable: Yes Condition: critical EKG Rhythm: Sinus Rhythm Residuals: minimal Tube Feeding Tolerated: yes Labs noted Test 04/03/19 16:30 04/03/19 17:30 04/03/19 17:55 04/03/19 18:01 White Blood Count 17.5 K/UL (4.8-10.8) Red Blood Count 4.72 M/UL (4.20-5.40) Hemoglobin 12.9 G/DL (12.0-16.0) Hematocrit 42.3 % (37.0-47.0) Mean Corpuscular Volume 90 FL (80-99) Mean Corpuscular Hemoglobin 27.4 PG (27.0-31.0) Mean Corpuscular Hemoglobin Concent 30.5 G/DL (32.0-36.0) Red Cell Distribution Width 15.6 % (11.6-14.8) Platelet Count 181 K/UL (150-450) Mean Platelet Volume 10.9 FL (6.5-10.1) Neutrophils (%) (Auto) 63.8 % (45.0-75.0) Lymphocytes (%) (Auto) 32.9 % (20.0-45.0) Monocytes (%) (Auto) 2.6 % (1.0-10.0) Eosinophils (%) (Auto) 0.0 % (0.0-3.0) Basophils (%) (Auto) 0.7 % (0.0-2.0) Sodium Level 151 MMOL/L (136-145) Potassium Level 4.4 MMOL/L (3.5-5.1) Chloride Level 111 MMOL/L (98-107) Carbon Dioxide Level 28 MMOL/L (21-32) Anion Gap 12 mmol/L (5-15) Blood Urea Nitrogen 99 mg/dL (7-18) Creatinine 2.4 MG/DL (0.55-1.30) Estimat Glomerular Filtration Rate mL/min (>60) Glucose Level 267 MG/DL (74-106) Lactic Acid Level 3.80 mmol/L (0.4-2.0) 3.00 mmol/L (0.66-2.22) Calcium Level 9.4 MG/DL (8.5-10.1) Total Bilirubin 0.5 MG/DL (0.2-1.0) Aspartate Amino Transf (AST/SGOT) 212 U/L (15-37) Alanine Aminotransferase (ALT/SGPT) 273 U/L (12-78) Alkaline Phosphatase 42 U/L (46-116) Total Creatine Kinase 438 U/L (26-308) Creatine Kinase MB 3.5 NG/ML (0.0-3.6) Creatine Kinase MB Relative Index 0.7 Troponin I 0.088 ng/mL (0.000-0.056) Pro-B-Type Natriuretic Peptide 2639 pg/mL (0-125) Total Protein 10.6 G/DL (6.4-8.2) Albumin 2.4 G/DL (3.4-5.0) Globulin 8.2 g/dL Albumin/Globulin Ratio 0.3 (1.0-2.7) Urine Color Yellow Urine Appearance Slightly cloudy Urine pH 5 (4.5-8.0) Urine Specific [place] 1.030 (1.005-1.035) Urine Protein 3+ (NEGATIVE) Urine Glucose (UA) Negative (NEGATIVE) Urine Ketones Negative (NEGATIVE) Urine Blood 4+ (NEGATIVE) Urine Nitrite Negative (NEGATIVE) Urine Bilirubin Negative (NEGATIVE) Urine Urobilinogen Normal MG/DL (0.0-1.0) Urine Leukocyte Esterase 3+ (NEGATIVE) Urine RBC 10-15 /HPF (0 - 2) Urine WBC 20-30 /HPF (0 - 2) Urine Squamous Epithelial Cells Moderate /LPF (NONE/OCC) Urine Bacteria Many /HPF (NONE) Urine Yeast Many /HPF (NONE) Arterial Blood pH 7.448 (7.350-7.450) Arterial Blood Partial Pressure CO2 30.0 mmHg (35.0-45.0) Arterial Blood Partial Pressure O2 141.8 mmHg (75.0-100.0) Arterial Blood HCO3 20.3 mmol/L (22.0-26.0) Arterial Blood Oxygen Saturation 97.9 % (95-100) Arterial Blood Base Excess -2.9 (-2-2) Jonah Test Positive Test 04/04/19 03:10 04/04/19 05:00 04/04/19 12:00 04/04/19 18:10 Lactic Acid Level 1.40 mmol/L (0.4-2.0) 1.80 mmol/L (0.4-2.0) White Blood Count 18.8 K/UL (4.8-10.8) Red Blood Count 3.06 M/UL (4.20-5.40) Hemoglobin 8.6 G/DL (12.0-16.0) Hematocrit 27.4 % (37.0-47.0) Mean Corpuscular Volume 90 FL (80-99) Mean Corpuscular Hemoglobin 28.1 PG (27.0-31.0) Mean Corpuscular Hemoglobin Concent 31.4 G/DL (32.0-36.0) Red Cell Distribution Width 16.2 % (11.6-14.8) Platelet Count 107 K/UL (150-450) Mean Platelet Volume 10.3 FL (6.5-10.1) Neutrophils (%) (Auto) % (45.0-75.0) Lymphocytes (%) (Auto) % (20.0-45.0) Monocytes (%) (Auto) % (1.0-10.0) Eosinophils (%) (Auto) % (0.0-3.0) Basophils (%) (Auto) % (0.0-2.0) Differential Total Cells Counted 100 Neutrophils % (Manual) 37 % (45-75) Lymphocytes % (Manual) 54 % (20-45) Monocytes % (Manual) 9 % (1-10) Eosinophils % (Manual) 0 % (0-3) Basophils % (Manual) 0 % (0-2) Band Neutrophils 0 % (0-8) Platelet Estimate Decreased Platelet Morphology Normal Hypochromasia 1+ Anisocytosis 1+ Sodium Level 156 MMOL/L (136-145) Potassium Level 2.9 MMOL/L (3.5-5.1) Chloride Level 123 MMOL/L (98-107) Carbon Dioxide Level 23 MMOL/L (21-32) Anion Gap 10 mmol/L (5-15) Blood Urea Nitrogen 79 mg/dL (7-18) Creatinine 1.5 MG/DL (0.55-1.30) Estimat Glomerular Filtration Rate mL/min (>60) Glucose Level 145 MG/DL (74-106) Calcium Level 7.6 MG/DL (8.5-10.1) Random Vancomycin Level 2.7 ug/mL Stool Occult Blood Negative (NEGATIVE) Test 04/05/19 04:00 White Blood Count 14.0 K/UL (4.8-10.8) Red Blood Count 3.07 M/UL (4.20-5.40) Hemoglobin 8.5 G/DL (12.0-16.0) Hematocrit 27.2 % (37.0-47.0) Mean Corpuscular Volume 89 FL (80-99) Mean Corpuscular Hemoglobin 27.7 PG (27.0-31.0) Mean Corpuscular Hemoglobin Concent 31.3 G/DL (32.0-36.0) Red Cell Distribution Width 15.9 % (11.6-14.8) Platelet Count 75 K/UL (150-450) Mean Platelet Volume 10.7 FL (6.5-10.1) Neutrophils (%) (Auto) % (45.0-75.0) Lymphocytes (%) (Auto) % (20.0-45.0) Monocytes (%) (Auto) % (1.0-10.0) Eosinophils (%) (Auto) % (0.0-3.0) Basophils (%) (Auto) % (0.0-2.0) Sodium Level 141 MMOL/L (136-145) Potassium Level 4.5 MMOL/L (3.5-5.1) Chloride Level 112 MMOL/L (98-107) Carbon Dioxide Level 24 MMOL/L (21-32) Anion Gap 5 mmol/L (5-15) Blood Urea Nitrogen 38 mg/dL (7-18) Creatinine 0.9 MG/DL (0.55-1.30) Estimat Glomerular Filtration Rate mL/min (>60) Glucose Level 113 MG/DL (74-106) Calcium Level 7.8 MG/DL (8.5-10.1) Magnesium Level 2.1 MG/DL (1.8-2.4) Random Vancomycin Level 6.0 ug/mL Objective: GENERAL: Chronically ill-appearing female, currently more alert HEENT: Negative. NECK: Supple. The patient is significantly contracted at this time. LUNGS: improved rhonchi. Moderate air entry. no wheeze CARDIAC: S1 and S2. The patient with regular rate and rhythm without murmurs, rubs, gallops. ABDOMEN: Soft, nontender. G-tube in place. no distention EXTREMITIES: No cyanosis, clubbing, or edema. Significant contractures. NEUROLOGICALLY: contracted, difficult to fully assess, more alert SKIN: Noted. Micro: Microbiology Date/Time Source Procedure Growth Status 04/03/19 16:30 Blood Blood Culture - Preliminary NO GROWTH AFTER 48 HOURS Resulted 04/03/19 16:30 Blood Blood Culture - Preliminary NO GROWTH AFTER 48 HOURS Resulted 04/03/19 20:00 Nasal Nares MRSA Culture - Final Staphylococcus Aureus - Mrsa Complete 04/03/19 17:30 Urine,Clean Catch Urine Culture - Preliminary Resulted 04/03/19 20:00 Rectum VRE Culture - Final NO VANCOMYCIN RESISTANT ENTEROCOCCUS ... Complete 04/03/19 20:00 Rectum - Final NO CARBAPENEM-RESISTANT ENTEROBACTERI... Complete Critical Care - Objective Last 24 Hour Vital Signs Date Time Temp Pulse Resp B/P (MAP) Pulse Ox O2 Delivery O2 Flow Rate FiO2 04/07/19 07:30 49 21 99/39 (59) 100 04/07/19 07:00 54 16 98/49 (65) 100 04/07/19 06:30 56 23 103/47 (65) 99 04/07/19 06:00 55 22 121/43 (69) 100 04/07/19 05:30 48 22 96/41 (59) 100 04/07/19 05:21 52 21 105/49 (67) 100 04/07/19 05:00 49 21 90/42 (58) 100 04/07/19 04:00 Room Air 04/07/19 04:00 98.0 58 22 115/44 (67) 85 04/07/19 04:00 55 04/07/19 03:00 58 21 104/63 (77) 100 04/07/19 02:00 69 25 128/59 (82) 98 04/07/19 01:00 55 22 115/48 (70) 99 04/07/19 00:30 56 22 108/45 (66) 99 04/07/19 00:00 Room Air 04/07/19 00:00 99.1 59 23 108/55 (72) 96 04/07/19 00:00 53 04/06/19 23:30 52 18 98/48 (65) 99 04/06/19 23:00 52 25 103/57 (72) 98 04/06/19 22:30 52 24 108/40 (62) 100 04/06/19 22:00 52 20 108/88 (95) 100 04/06/19 21:30 49 16 98/42 (60) 100 04/06/19 21:00 56 24 106/56 (73) 100 04/06/19 20:30 98.6 55 24 95/40 (58) 100 04/06/19 20:30 104/73 04/06/19 20:00 55 04/06/19 20:00 Room Air 04/06/19 20:00 61 22 104/73 (83) 100 04/06/19 19:30 60 22 82/58 (66) 98 04/06/19 19:00 65 21 102/63 (76) 100 04/06/19 18:30 60 21 110/84 (93) 100 04/06/19 18:00 58 21 100/67 (78) 100 04/06/19 18:00 100/67 04/06/19 17:30 62 21 108/80 (89) 100 04/06/19 17:00 124/104 04/06/19 17:00 59 21 104/55 (71) 100 04/06/19 16:30 59 21 98/54 (69) 100 04/06/19 16:00 59 04/06/19 16:00 115/48 04/06/19 16:00 Room Air 04/06/19 16:00 98.5 59 21 115/48 (70) 100 04/06/19 15:30 58 21 119/59 (79) 100 04/06/19 15:00 59 21 111/55 (73) 99 04/06/19 15:00 111/55 04/06/19 14:30 62 21 107/74 (85) 100 04/06/19 14:00 59 18 110/53 (72) 100 04/06/19 14:00 107/74 04/06/19 13:30 57 18 93/79 (84) 100 04/06/19 13:00 144/44 04/06/19 13:00 57 18 100/67 (78) 100 04/06/19 12:30 57 18 102/62 (75) 100 04/06/19 12:00 98.9 57 18 106/84 (91) 100 04/06/19 12:00 Room Air 04/06/19 12:00 106/84 04/06/19 12:00 60 04/06/19 11:30 60 18 110/64 (79) 100 04/06/19 11:00 105/50 04/06/19 10:30 120/55 04/06/19 10:30 53 18 122/50 (74) 100 04/06/19 10:00 116/50 04/06/19 10:00 56 18 112/49 (70) 100 04/06/19 09:30 50 18 130/51 (77) 100 04/06/19 09:00 57 18 116/56 (76) 100 04/06/19 09:00 130/51 04/06/19 08:30 56 17 124/32 (62) 100 04/06/19 08:26 51 124/31 04/06/19 08:00 58 04/06/19 08:00 Room Air 04/06/19 08:00 124/32 04/06/19 08:00 58 17 105/45 (65) 100 Critical Care - Subjective ROS Limited/Unobtainable: No Tube Feeding Amount: 50 I&O: Intake and Output 04/06/19 04/07/19 19:00 07:00 Intake Total 2041.327 ml 1755 ml Output Total 1250 ml 1000 ml Balance 791.327 ml 755 ml Intake Free Water 120 ml 300 ml IV Total 1071.327 ml 905 ml Tube Feeding 600 ml 550 ml Blood Product 250 ml Output Urine Total 1250 ml 1000 ml # Bowel Movements 1 Mane Zhang MD Apr 07, 2019 07:32
--- NOTE | 2019-04-07 07:36 | NUR ---
NURSE NOTES: Received report from JUNIOR Davila. Patient asleep. Responsive to verbal and tactile stimuli. SB high 40s-low 50s. Gtube intact and clean, running with jevity 1.2 50ml/hr. Bryant intact and draining by gravity with yellow urine. Left subclavian TLC intact and clean, running 1/2NS @75ml/hr. Repositioned patient. Call-light placed in easy reach. Kept dry, clean and comfortable. Will continue plan of care.
--- NOTE | 2019-04-07 08:01 | NUR ---
NURSE NOTES: Blood was drawn and sent to the lab for CBC,CMP and Vanco trough.
[2019-04-07 08:13] LABS: HEMATOCRIT 28.6 % (37.0-47.0); HEMOGLOBIN 9.3 G/DL (12.0-16.0); MEAN CORPUSCULAR VOLUME 90 FL (80-99); PLATELET COUNT 77 K/UL (150-450); RED BLOOD COUNT 3.19 M/UL (4.20-5.40); RED CELL DISTRIBUTION WIDTH 16.1 % (11.6-14.8); WHITE BLOOD COUNT 9.9 K/UL (4.8-10.8)
[2019-04-07] MEDS: Ascorbic Acid 500mg tab GT SCH (08:13)
[2019-04-07] MEDS: Brimonidine 0.2% Opth Sol BOTH EYES SCH ×2 (08:13→12:20)
[2019-04-07] MEDS: Docusate 100mg/10ml Liq GT SCH (08:14)
[2019-04-07] MEDS: Multivitamin w/Minerals tab ORAL SCH (08:14)
[2019-04-07] MEDS: Milk of Magnesia 30ml Ud GT SCH (08:14)
[2019-04-07] MEDS: Vancomycin 500mg/D5W 110ml IVPB SCH ×4 (08:14→08:34)
[2019-04-07] MEDS: Heparin 5000 units/ml inj SUBQ SCH (08:15)
[2019-04-07 08:21] LABS: ALANINE AMINOTRANSFERASE 158 U/L (12-78); ALBUMIN 1.7 G/DL (3.4-5.0); ALBUMIN/GLOBULIN RATIO 0.3 (1.0-2.7); ALKALINE PHOSPHATASE 37 U/L (46-116); ANION GAP 7 mmol/L (5-15); ASPARTATE AMINO TRANSFERASE 41 U/L (15-37); BILIRUBIN,TOTAL 0.5 MG/DL (0.2-1.0); BLOOD UREA NITROGEN 31 mg/dL (7-18); CARBON DIOXIDE 24 MMOL/L (21-32); CHLORIDE 109 MMOL/L (98-107); CREATININE 0.9 MG/DL (0.55-1.30); POTASSIUM 5.1 MMOL/L (3.5-5.1); SODIUM 140 MMOL/L (136-145)
--- NOTE | 2019-04-07 10:00 | NUR ---
NURSE NOTES: Seen by Dr. Zhang. No new orders.
--- NOTE | 2019-04-07 10:32 | Infectious Diseases Prog Note ---
Assessment/Plan Assessment/Plan antibiotics : vancomycin iv, meropenem A 1. fungal UTI 2. septic shock resolved 3. renal failure improving 4. bilateral renal stones 5, dementia P 1. continue iv vancomycin, meropenem 2. start fluconazole 3. will follow up cultures Subjective ROS Limited/Unobtainable: Yes Allergies: Coded Allergies: MORPHINE (Verified Allergy, Unknown, 07/18/09) Objective Vital Signs Last 24 Hour Vital Signs Date Time Temp Pulse Resp B/P (MAP) Pulse Ox O2 Delivery O2 Flow Rate FiO2 04/07/19 09:00 55 100/45 (63) 99 04/07/19 08:30 57 104/46 (65) 97 04/07/19 08:14 53 94/54 04/07/19 08:00 Room Air 04/07/19 08:00 97.9 51 94/54 (67) 99 04/07/19 07:30 49 21 99/39 (59) 100 04/07/19 07:00 54 16 98/49 (65) 100 04/07/19 06:30 56 23 103/47 (65) 99 04/07/19 06:00 55 22 121/43 (69) 100 04/07/19 05:30 48 22 96/41 (59) 100 04/07/19 05:21 52 21 105/49 (67) 100 04/07/19 05:00 49 21 90/42 (58) 100 04/07/19 04:00 Room Air 04/07/19 04:00 98.0 58 22 115/44 (67) 85 04/07/19 04:00 55 04/07/19 03:00 58 21 104/63 (77) 100 04/07/19 02:00 69 25 128/59 (82) 98 04/07/19 01:00 55 22 115/48 (70) 99 04/07/19 00:30 56 22 108/45 (66) 99 04/07/19 00:00 Room Air 04/07/19 00:00 99.1 59 23 108/55 (72) 96 04/07/19 00:00 53 04/06/19 23:30 52 18 98/48 (65) 99 04/06/19 23:00 52 25 103/57 (72) 98 04/06/19 22:30 52 24 108/40 (62) 100 04/06/19 22:00 52 20 108/88 (95) 100 04/06/19 21:30 49 16 98/42 (60) 100 04/06/19 21:00 56 24 106/56 (73) 100 04/06/19 20:30 98.6 55 24 95/40 (58) 100 04/06/19 20:30 104/73 04/06/19 20:00 55 04/06/19 20:00 Room Air 04/06/19 20:00 61 22 104/73 (83) 100 04/06/19 19:30 60 22 82/58 (66) 98 04/06/19 19:00 65 21 102/63 (76) 100 04/06/19 18:30 60 21 110/84 (93) 100 04/06/19 18:00 58 21 100/67 (78) 100 04/06/19 18:00 100/67 04/06/19 17:30 62 21 108/80 (89) 100 04/06/19 17:00 124/104 04/06/19 17:00 59 21 104/55 (71) 100 04/06/19 16:30 59 21 98/54 (69) 100 04/06/19 16:00 59 04/06/19 16:00 115/48 04/06/19 16:00 Room Air 04/06/19 16:00 98.5 59 21 115/48 (70) 100 04/06/19 15:30 58 21 119/59 (79) 100 04/06/19 15:00 59 21 111/55 (73) 99 04/06/19 15:00 111/55 04/06/19 14:30 62 21 107/74 (85) 100 04/06/19 14:00 59 18 110/53 (72) 100 04/06/19 14:00 107/74 04/06/19 13:30 57 18 93/79 (84) 100 04/06/19 13:00 144/44 04/06/19 13:00 57 18 100/67 (78) 100 04/06/19 12:30 57 18 102/62 (75) 100 04/06/19 12:00 98.9 57 18 106/84 (91) 100 04/06/19 12:00 Room Air 04/06/19 12:00 106/84 04/06/19 12:00 60 04/06/19 11:30 60 18 110/64 (79) 100 04/06/19 11:00 105/50 04/06/19 10:30 120/55 04/06/19 10:30 53 18 122/50 (74) 100 Height (Feet): 5 Height (Inches): 4.00 Weight (Pounds): 75 Respiratory/Chest: lungs clear Cardiovascular: normal rate, regular rhythm, no gallop/murmur Abdomen: soft, non tender, other - GT Extremities: no edema Laboratory Tests Test 04/06/19 11:00 04/07/19 07:54 White Blood Count 6.9 K/UL (4.8-10.8) # 9.9 K/UL (4.8-10.8) Red Blood Count 2.77 M/UL (4.20-5.40) L 3.19 M/UL (4.20-5.40) L Hemoglobin 7.7 G/DL (12.0-16.0) L 9.3 G/DL (12.0-16.0) L Hematocrit 24.2 % (37.0-47.0) L 28.6 % (37.0-47.0) L Mean Corpuscular Volume 87 FL (80-99) 90 FL (80-99) Mean Corpuscular Hemoglobin 27.7 PG (27.0-31.0) 29.1 PG (27.0-31.0) Mean Corpuscular Hemoglobin Concent 31.6 G/DL (32.0-36.0) L 32.5 G/DL (32.0-36.0) Red Cell Distribution Width 15.0 % (11.6-14.8) H 16.1 % (11.6-14.8) H Platelet Count 70 K/UL (150-450) L 77 K/UL (150-450) L Mean Platelet Volume 11.8 FL (6.5-10.1) H 10.7 FL (6.5-10.1) H Neutrophils (%) (Auto) % (45.0-75.0) % (45.0-75.0) Lymphocytes (%) (Auto) % (20.0-45.0) % (20.0-45.0) Monocytes (%) (Auto) % (1.0-10.0) % (1.0-10.0) Eosinophils (%) (Auto) % (0.0-3.0) % (0.0-3.0) Basophils (%) (Auto) % (0.0-2.0) % (0.0-2.0) Differential Total Cells Counted 100 100 Neutrophils % (Manual) 64 % (45-75) 54 % (45-75) Lymphocytes % (Manual) 33 % (20-45) 43 % (20-45) Monocytes % (Manual) 3 % (1-10) 3 % (1-10) Eosinophils % (Manual) 0 % (0-3) 0 % (0-3) Basophils % (Manual) 0 % (0-2) 0 % (0-2) Band Neutrophils 0 % (0-8) 0 % (0-8) Platelet Estimate Decreased L Decreased L Platelet Morphology Normal Normal Sodium Level 141 MMOL/L (136-145) 140 MMOL/L (136-145) Potassium Level 4.7 MMOL/L (3.5-5.1) 5.1 MMOL/L (3.5-5.1) Chloride Level 112 MMOL/L (98-107) H 109 MMOL/L (98-107) H Carbon Dioxide Level 20 MMOL/L (21-32) L 24 MMOL/L (21-32) Anion Gap 9 mmol/L (5-15) 7 mmol/L (5-15) Blood Urea Nitrogen 33 mg/dL (7-18) H 31 mg/dL (7-18) H Creatinine 1.0 MG/DL (0.55-1.30) 0.9 MG/DL (0.55-1.30) Estimat Glomerular Filtration Rate mL/min (>60) mL/min (>60) Glucose Level 174 MG/DL (74-106) H 77 MG/DL (74-106) Calcium Level 8.0 MG/DL (8.5-10.1) L 8.0 MG/DL (8.5-10.1) L Total Bilirubin 0.4 MG/DL (0.2-1.0) 0.5 MG/DL (0.2-1.0) Aspartate Amino Transf (AST/SGOT) 52 U/L (15-37) H 41 U/L (15-37) H Alanine Aminotransferase (ALT/SGPT) 205 U/L (12-78) H 158 U/L (12-78) H Alkaline Phosphatase 39 U/L (46-116) L 37 U/L (46-116) L Total Protein 7.8 G/DL (6.4-8.2) 7.3 G/DL (6.4-8.2) Albumin 1.8 G/DL (3.4-5.0) L 1.7 G/DL (3.4-5.0) L Globulin 6.0 g/dL 5.6 g/dL Albumin/Globulin Ratio 0.3 (1.0-2.7) L 0.3 (1.0-2.7) L Hypochromasia 2+ Vancomycin Level Trough 9.3 ug/mL (5.0-12.0) Current Medications Medications (Trade) Dose Ordered Sig/Marcos Route PRN Reason Start Time Stop Time Status Last Admin Dose Admin Acetaminophen (Tylenol) 650 mg Q4H PRN GT Mild Pain/Temp > 100.5 04/04/19 08:15 05/04/19 08:14 04/04/19 08:23 Amlodipine Besylate (Norvasc) 5 mg DAILY GT 04/04/19 09:00 05/04/19 08:59 Ascorbic Acid (Vitamin C) 500 mg DAILY GT 04/04/19 09:00 05/04/19 08:59 04/07/19 08:13 Bisacodyl (Dulcolax) 10 mg PRN PRN RECTAL Constipation 04/03/19 21:30 05/03/19 21:29 Brimonidine Tartrate (Alphagan) 1 drop TID BOTH EYES 04/04/19 09:00 05/04/19 08:59 04/07/19 08:13 Chlorhexidine Gluconate (Kylee-Hex 2%) 1 applic DAILY@2000 TOPIC 04/05/19 20:00 05/05/19 19:59 04/06/19 20:29 Docusate Sodium (Colace) 100 mg BID GT 04/04/19 09:00 05/04/19 08:59 04/07/19 08:14 Dopamine HCl/ Dextrose 250 ml @ 0 mls/hr Q24H IV 04/04/19 21:17 05/04/19 21:16 04/06/19 05:13 Heparin Sodium (Porcine) (Heparin 5000 units/ml) 5,000 units EVERY 12 HOURS SUBQ 04/04/19 09:00 05/04/19 08:59 04/04/19 20:00 Lorazepam (Ativan) 1 mg Q4HR PRN GT For Anxiety 04/03/19 21:30 04/10/19 21:29 04/05/19 08:36 Magnesium Hydroxide (Mom) 30 ml DAILY GT 04/04/19 09:00 05/04/19 08:59 04/07/19 08:14 Meropenem 1 gm/ Sodium Chloride 55 ml @ 110 mls/hr Q12H IVPB 04/05/19 17:00 04/10/19 16:59 04/07/19 05:06 Multivitamins Therapeutic (Therapeutic Multivitamin) 1 ea DAILY ORAL 04/04/19 09:00 05/04/19 08:59 04/07/19 08:14 Norepinephrine Bitartrate 8 mg/ Dextrose 250 ml @ 0 mls/hr Q24H IV 04/03/19 21:15 05/03/19 21:14 04/04/19 20:00 Olanzapine (ZyPREXA) 5 mg TID GT 04/04/19 09:00 05/04/19 08:59 04/07/19 08:14 Pantoprazole (Protonix) 40 mg DAILY ORAL 04/04/19 09:00 05/04/19 08:59 04/07/19 08:13 Sodium 1,000 ml @ 75 mls/hr [id number] IV 04/05/19 10:30 05/05/19 10:29 04/07/19 02:30 Vancomycin HCl (Vanco rx to dose) 1 ea DAILY PRN MISC Per rx protocol 04/03/19 21:30 05/03/19 21:29 Vancomycin HCl 500 mg/Dextrose 110 ml @ 110 mls/hr Q24H IVPB 04/06/19 09:00 04/11/19 08:59 04/07/19 08:34 Zolpidem Tartrate (Ambien) 5 mg BEDTIME PRN GT Insomnia 04/03/19 21:30 04/10/19 21:29 Lindsay Poole MD Apr 07, 2019 10:32
[2019-04-07] MEDS ORDERED: Fluconazole 100mg tab ORAL SCH (10:45)
--- NOTE | 2019-04-07 11:30 | NUR ---
NURSE NOTES: Seen by Dr. Saha. IV fluid changed to 1/2NS 75ml/hr. Will continue plan of care.
--- NOTE | 2019-04-07 12:00 | NUR ---
REQUIREMENTS [employer] SI: SEPSIS,BRADYCARDIA T. 97.9 HR 49 RR 21 B/P 94/54 RA 98% BUN 31 AST 41 ALT 158 IS: IVF NS@ 75ML/HR DIFLUCAN PO ZYPREXA PO HEPARIN SUBC ICU STATUS
--- NOTE | 2019-04-07 13:23 | NUR ---
NURSE NOTES: Oral care provided and repositioned.
[2019-04-07] MEDS: Acetaminophen 650mg/20.3ml GT PRN (13:38)
--- NOTE | 2019-04-07 15:12 | NUR ---
NURSE NOTES: No change in condition. Repositioned. VSS
--- NOTE | 2019-04-07 15:37 | Surgery Progress Note ---
Surgery Progress Note Subjective Procedure Performed left subclavian central venous catheter insertion Additional Comments slowly improving feels better today Objective Last 24 Hour Vital Signs Date Time Temp Pulse Resp B/P (MAP) Pulse Ox O2 Delivery O2 Flow Rate FiO2 04/07/19 14:00 52 25 120/85 (97) 98 04/07/19 13:00 58 116/71 (86) 100 04/07/19 12:00 57 04/07/19 12:00 Room Air 04/07/19 12:00 97.8 58 91/73 (79) 98 04/07/19 11:00 61 118/68 (85) 95 04/07/19 10:00 60 106/57 (73) 98 04/07/19 09:00 55 100/45 (63) 99 04/07/19 08:30 57 104/46 (65) 97 04/07/19 08:14 53 94/54 04/07/19 08:00 Room Air 04/07/19 08:00 53 04/07/19 08:00 97.9 51 94/54 (67) 99 04/07/19 07:30 49 21 99/39 (59) 100 04/07/19 07:00 54 16 98/49 (65) 100 04/07/19 06:30 56 23 103/47 (65) 99 04/07/19 06:00 55 22 121/43 (69) 100 04/07/19 05:30 48 22 96/41 (59) 100 04/07/19 05:21 52 21 105/49 (67) 100 04/07/19 05:00 49 21 90/42 (58) 100 04/07/19 04:00 Room Air 04/07/19 04:00 98.0 58 22 115/44 (67) 85 04/07/19 04:00 55 04/07/19 03:00 58 21 104/63 (77) 100 04/07/19 02:00 69 25 128/59 (82) 98 04/07/19 01:00 55 22 115/48 (70) 99 04/07/19 00:30 56 22 108/45 (66) 99 04/07/19 00:00 Room Air 04/07/19 00:00 99.1 59 23 108/55 (72) 96 04/07/19 00:00 53 04/06/19 23:30 52 18 98/48 (65) 99 04/06/19 23:00 52 25 103/57 (72) 98 04/06/19 22:30 52 24 108/40 (62) 100 04/06/19 22:00 52 20 108/88 (95) 100 04/06/19 21:30 49 16 98/42 (60) 100 04/06/19 21:00 56 24 106/56 (73) 100 04/06/19 20:30 98.6 55 24 95/40 (58) 100 04/06/19 20:30 104/73 04/06/19 20:00 55 04/06/19 20:00 Room Air 04/06/19 20:00 61 22 104/73 (83) 100 04/06/19 19:30 60 22 82/58 (66) 98 04/06/19 19:00 65 21 102/63 (76) 100 04/06/19 18:30 60 21 110/84 (93) 100 04/06/19 18:00 58 21 100/67 (78) 100 04/06/19 18:00 100/67 04/06/19 17:30 62 21 108/80 (89) 100 04/06/19 17:00 124/104 04/06/19 17:00 59 21 104/55 (71) 100 04/06/19 16:30 59 21 98/54 (69) 100 04/06/19 16:00 59 04/06/19 16:00 115/48 04/06/19 16:00 Room Air 04/06/19 16:00 98.5 59 21 115/48 (70) 100 I&O Intake and Output 04/06/19 04/07/19 19:00 07:00 Intake Total 2041.327 ml 1880 ml Output Total 1250 ml 1150 ml Balance 791.327 ml 730 ml Intake Free Water 120 ml 300 ml IV Total 1071.327 ml 980 ml Tube Feeding 600 ml 600 ml Blood Product 250 ml Output Urine Total 1250 ml 1150 ml # Bowel Movements 1 Dressing: dry Wound: clean Cardiovascular: RSR Respiratory: clear Abdomen: flat, present bowel sounds Extremities: no cyanosis Laboratory Tests Test 04/07/19 07:54 White Blood Count 9.9 K/UL (4.8-10.8) Red Blood Count 3.19 M/UL (4.20-5.40) L Hemoglobin 9.3 G/DL (12.0-16.0) L Hematocrit 28.6 % (37.0-47.0) L Mean Corpuscular Volume 90 FL (80-99) Mean Corpuscular Hemoglobin 29.1 PG (27.0-31.0) Mean Corpuscular Hemoglobin Concent 32.5 G/DL (32.0-36.0) Red Cell Distribution Width 16.1 % (11.6-14.8) H Platelet Count 77 K/UL (150-450) L Mean Platelet Volume 10.7 FL (6.5-10.1) H Neutrophils (%) (Auto) % (45.0-75.0) Lymphocytes (%) (Auto) % (20.0-45.0) Monocytes (%) (Auto) % (1.0-10.0) Eosinophils (%) (Auto) % (0.0-3.0) Basophils (%) (Auto) % (0.0-2.0) Differential Total Cells Counted 100 Neutrophils % (Manual) 54 % (45-75) Lymphocytes % (Manual) 43 % (20-45) Monocytes % (Manual) 3 % (1-10) Eosinophils % (Manual) 0 % (0-3) Basophils % (Manual) 0 % (0-2) Band Neutrophils 0 % (0-8) Platelet Estimate Decreased L Platelet Morphology Normal Hypochromasia 2+ Sodium Level 140 MMOL/L (136-145) Potassium Level 5.1 MMOL/L (3.5-5.1) Chloride Level 109 MMOL/L (98-107) H Carbon Dioxide Level 24 MMOL/L (21-32) Anion Gap 7 mmol/L (5-15) Blood Urea Nitrogen 31 mg/dL (7-18) H Creatinine 0.9 MG/DL (0.55-1.30) Estimat Glomerular Filtration Rate mL/min (>60) Glucose Level 77 MG/DL (74-106) Calcium Level 8.0 MG/DL (8.5-10.1) L Total Bilirubin 0.5 MG/DL (0.2-1.0) Aspartate Amino Transf (AST/SGOT) 41 U/L (15-37) H Alanine Aminotransferase (ALT/SGPT) 158 U/L (12-78) H Alkaline Phosphatase 37 U/L (46-116) L Total Protein 7.3 G/DL (6.4-8.2) Albumin 1.7 G/DL (3.4-5.0) L Globulin 5.6 g/dL Albumin/Globulin Ratio 0.3 (1.0-2.7) L Vancomycin Level Trough 9.3 ug/mL (5.0-12.0) Plan Problems: (1) Abnormal LFTs Assessment & Plan: likely related to hypotension and sepsis will trend Echo ordered and results noted. (2) Septic shock Assessment & Plan: 79F in septic shock, hypotensive, on pressors, leukocytosis , lactic acidosis unable to obtain peripheral line has IO but not safe in elderly in her condition needs central venous access. see note IV abx labs improving exam stable iv fluids will follow with recs (3) Decubitus skin ulcer Assessment & Plan: Pt presented on admission with contractures and multiple pressure injuries. Non-Blanchable erythema without induration or fluctuance noted to R scapula (L) 4cm x (W)3.2cm. Two partial thickness pressure injuries noted to R thoracic area-Proximal wound is a partial thickness wound. Base of wound is moist and viable with surrounding non-blanching erythema without induration/fluctuance (L)2.5cm x (W) 3cm. Inferior wound in close proximity to above wound -Base of wound is moist and viable with surrounding non-Blanching erythema without induration/ fluctuance (L)3.5cm x (W)2cm. DTPI noted to L trochanter. Base of wound is purple with surrounding maroon borders. Base of wound is indurated. Periwound without erythema or induration.(L )4.3cm x (W)4.2cm. DTPI noted to R trochanter.Base of wound is purple with surrounding maroon discoloration. Base of wound is indurated. Non-blanchable erythema without fluctuance periwound. (L)7.3cm x (W)7.2cm. DTPI noted to sacrum. Base of wound is indurated- purple with maroon areas. Non- blanching erythema without fluctuance or induration periwound. DTPI that is partially opened along borders distal /lateral R foot.Base of wound is fluctuant and maroon in colour .No exudate noted. (L)3cm x (W)2.5cm. Periwound is pink and blanchable. Bilat heels and malleoli each feet are pink and blanchable. No other areas of concerns noted. Tx.Plan: Apply Cavilon Skin Barrier Flomot to R scapula. Cover with Optifoam drsg. Change every 7 days and prn. Apply Cavilon Skin barrier spray to R and L Trochanters. Apply Triad paste. Cover each site with Optifoam drsg. Change every 3 days and prn. Apply Cavilon Skin Barrier Flomot to Sacrum then apply Triad. Cover with Optifoam drsg. Change every 3 days and PRN. Apply Cavilon Skin Barrier to distal/lateral R foot. Cover with Optifoam drsg. Change every 3 days and prn. Apply Triad Paste to wounds R thoracic (2 sites). Cover with Optifoam drsg. change every 3 days and prn APM/LEONARD mattress overlay. Reposition at least every 2hours or as tolerated. Place pillow between knees. Off-load heels with pillow. Alistair Nieves Apr 07, 2019 15:37
--- NOTE | 2019-04-07 17:25 | NUR ---
TRANSFER TO FLOOR: Patient transferred to 2E/210-1. Report given to JUNIOR Godinez. No belongings noted. Patient is in stable condition. No distress/SOB noted. Patient denies any pain/discomfot at this time. Endorsed plan of care.
[2019-04-07] MEDS ORDERED: Acetaminophen 650mg/20.3ml GT PRN (17:30)
[2019-04-07] MEDS ORDERED: LORazepam 1mg tab GT PRN (17:45)
[2019-04-07] MEDS ORDERED: Brimonidine 0.2% Opth Sol BOTH EYES SCH (18:00)
[2019-04-07] MEDS ORDERED: Docusate 100mg/10ml Liq GT SCH (18:00)
--- NOTE | 2019-04-07 19:00 | NUR ---
NURSE NOTES: NURSE NOTES: Received report from JUNIOR [place], patient in stable condition, AOx1, able to make needs known to a degree, denies pain at this time,L subclavian central line double lumen patent, no s/sx of infection, gtube running at 50 mL/hr, gt stoma intact, F/C draining to gravity, bed lowest position, brakes on, call light within reach, will continue to monitor and reassess.
--- NOTE | 2019-04-07 19:05 | NUR ---
HAND-OFF: Report given to JUNIOR [place].
[2019-04-07] MEDS ORDERED: Dyna-Hex 2% Top Sol 2oz TOPIC SCH (20:00)
[2019-04-07] MEDS ORDERED: Zolpidem 5mg tab GT PRN (21:00)
[2019-04-07] MEDS ORDERED: Heparin 5000 units/ml inj SUBQ SCH (21:00)
--- NOTE | 2019-04-07 23:50 | NUR ---
NURSE NOTES: Patient blood pressure was 77/35 right arm ,rechecked several times, BP in the same range, placed the patient in Trendelenburg with no improvement. Notified Dr. Zhang who ordered transfer to ICU and meds for blood pressure support. Orders noted and carried out.
[2019-04-07] MEDS ORDERED: Levophed 4mg/4mL Inj IV ONE (23:52)
[2019-04-08] VITALS (34 sets, daily range): BP systolic 90–138; BP diastolic 44–82
--- NOTE | 2019-04-08 00:25 | NUR ---
NURSE NOTES: Transferred patient to ICU, report given to JUNIOR Andrade
--- NOTE | 2019-04-08 00:30 | NUR ---
NURSE NOTES: After 500ml NS bolus Bp still 98/50, started with Levophed 5mcg/min ,Sinus Bradycardia 52/min. Pt asleep at this time.
[2019-04-08] MEDS ORDERED: Acetaminophen 650mg/20.3ml GT PRN ×2 (01:30→13:30)
[2019-04-08] MEDS ORDERED: LORazepam 1mg tab GT PRN ×2 (01:45→13:30)
--- NOTE | 2019-04-08 02:00 | NUR ---
NURSE NOTES: Levophed drip down to 4mcg/min bp 112/45, resting well at this time.
--- NOTE | 2019-04-08 03:00 | NUR ---
NURSE NOTES: Levophed drip down to 3mcg/min bp 108/57, Sinus Bradycardia, resting well at this time.
--- NOTE | 2019-04-08 04:00 | NUR ---
NURSE NOTES: Bp 115/57 Levophed drip down to 2 mcg/min. Watch for falling Bp.
--- NOTE | 2019-04-08 06:00 | NUR ---
NURSE NOTES:Bp is improving at this time. Levophed at 2 mcg/min. afebrile.
--- NOTE | 2019-04-08 07:10 | NUR ---
NURSE NOTES: Received the patient from JUNIOR Andrade. Patient is asleep, responsive to verbal and tactile stimuli. BP 126/60. turned off levophed gtt. SB high 40s-50s noted on the video editing internship. O2 sat 98% on room air. No acute distress noted. Gtube intact and patent, running jevity 1.2 at 50ml/hr. HOB kept elevated. Bryant cath intact and patent, draining yellow urine by gravity. Left subclavian TLC intact, running 1/2NS at 75ml/hr. On P200 mattress. Wound dressings intact, clean and dry. Bed in lowest position, locked, side rails upx3. Bed alarm on. Call light within reach. Will continue to monitor.
--- NOTE | 2019-04-08 07:23 | NUR ---
HAND-OFF: Report given to Jagjit PACHECO.
--- NOTE | 2019-04-08 08:38 | Critical Care Progress Note ---
Assessment/Plan Assessment/Plan IMPRESSION: Fever, likely sepsis, severe protein-calorie malnutrition, contractures, acute on chronic renal failure, hypernatremia, leukocytosis, evidence of anemia, history of hypertension, bedbound state, dementia. toxic metabolic encephalopathy PLAN nutrition as tolerated; elevate head and monitor congestion IV antibiotics off pressors and monitor off load; wound care monitor protein levels and continue feeds close follow up for any change; labile IV hydration for now- per renal ? dc renal parameters improved overall d/w consultants and ancillary staff medications/laboratory data/nursing notes/ICU care reviewed in detail note reviewed and edited care discussed with RN and RT ICU time spent 40 minutes Critical Care - Subjective Interval Events: still in ICU bp still labile labs reviewed ICU care reviewed ROS Limited/Unobtainable: Yes Condition: critical, improving EKG Rhythm: Sinus Rhythm Residuals: minimal Tube Feeding Tolerated: yes I&O: Intake and Output 04/07/19 04/08/19 19:00 07:00 Intake Total 1205 ml 567.50 ml Output Total 1350 ml 800 ml Balance -145 ml -232.50 ml Intake Free Water 150 ml IV Total 605 ml 517.50 ml Tube Feeding 450 ml 50 ml Output Urine Total 1350 ml 800 ml Critical Care - Objective Last 24 Hour Vital Signs Date Time Temp Pulse Resp B/P (MAP) Pulse Ox O2 Delivery O2 Flow Rate FiO2 04/08/19 08:00 98.5 55 15 118/46 (70) 100 04/08/19 08:00 Room Air 04/08/19 08:00 55 04/08/19 07:45 52 20 90/45 (60) 100 04/08/19 07:30 55 21 95/54 (68) 97 04/08/19 07:15 52 22 91/52 (65) 98 04/08/19 07:00 52 21 127/59 (81) 99 04/08/19 07:00 126/60 04/08/19 06:45 50 19 126/60 (82) 100 04/08/19 06:30 46 21 122/57 (78) 99 04/08/19 06:15 46 18 103/54 (70) 98 04/08/19 06:00 52 20 104/56 (72) 98 04/08/19 06:00 105/60 04/08/19 05:45 49 19 120/50 (73) 100 04/08/19 05:30 44 18 117/45 (69) 100 04/08/19 05:16 102/50 04/08/19 05:15 52 21 117/44 (68) 99 04/08/19 05:00 47 21 117/82 (94) 98 04/08/19 04:45 48 20 115/50 (71) 100 04/08/19 04:30 48 18 127/54 (78) 100 04/08/19 04:00 97.8 47 19 115/57 (76) 99 04/08/19 04:00 58 04/08/19 04:00 115/57 04/08/19 04:00 Room Air 04/08/19 03:30 49 22 104/58 (73) 98 04/08/19 03:00 108/55 04/08/19 03:00 55 22 108/55 (72) 98 04/08/19 02:30 49 20 107/47 (67) 98 04/08/19 02:00 112/45 04/08/19 02:00 49 18 106/57 (73) 97 04/08/19 01:30 54 19 104/57 (73) 97 04/08/19 01:02 98/50 04/08/19 01:00 55 17 98/50 (66) 97 04/08/19 00:30 52 17 104/44 (64) 99 04/08/19 00:00 Room Air 04/08/19 00:00 97.5 49 21 119/46 (70) 98 04/07/19 20:00 59 04/07/19 20:00 Room Air 04/07/19 20:00 97.5 59 19 90/56 (67) 97 04/07/19 16:00 55 04/07/19 16:00 97.3 59 24 114/78 (90) 97 04/07/19 16:00 Room Air 04/07/19 15:00 55 26 93/47 (62) 97 04/07/19 14:00 52 25 120/85 (97) 98 04/07/19 13:00 58 116/71 (86) 100 04/07/19 12:00 57 04/07/19 12:00 Room Air 04/07/19 12:00 97.8 58 91/73 (79) 98 04/07/19 11:00 61 118/68 (85) 95 04/07/19 10:00 60 106/57 (73) 98 04/07/19 09:00 55 100/45 (63) 99 Labs: Labs Test 04/06/19 11:00 04/07/19 07:54 White Blood Count 6.9 K/UL (4.8-10.8) 9.9 K/UL (4.8-10.8) Red Blood Count 2.77 M/UL (4.20-5.40) 3.19 M/UL (4.20-5.40) Hemoglobin 7.7 G/DL (12.0-16.0) 9.3 G/DL (12.0-16.0) Hematocrit 24.2 % (37.0-47.0) 28.6 % (37.0-47.0) Mean Corpuscular Volume 87 FL (80-99) 90 FL (80-99) Mean Corpuscular Hemoglobin 27.7 PG (27.0-31.0) 29.1 PG (27.0-31.0) Mean Corpuscular Hemoglobin Concent 31.6 G/DL (32.0-36.0) 32.5 G/DL (32.0-36.0) Red Cell Distribution Width 15.0 % (11.6-14.8) 16.1 % (11.6-14.8) Platelet Count 70 K/UL (150-450) 77 K/UL (150-450) Mean Platelet Volume 11.8 FL (6.5-10.1) 10.7 FL (6.5-10.1) Neutrophils (%) (Auto) % (45.0-75.0) % (45.0-75.0) Lymphocytes (%) (Auto) % (20.0-45.0) % (20.0-45.0) Monocytes (%) (Auto) % (1.0-10.0) % (1.0-10.0) Eosinophils (%) (Auto) % (0.0-3.0) % (0.0-3.0) Basophils (%) (Auto) % (0.0-2.0) % (0.0-2.0) Differential Total Cells Counted 100 100 Neutrophils % (Manual) 64 % (45-75) 54 % (45-75) Lymphocytes % (Manual) 33 % (20-45) 43 % (20-45) Monocytes % (Manual) 3 % (1-10) 3 % (1-10) Eosinophils % (Manual) 0 % (0-3) 0 % (0-3) Basophils % (Manual) 0 % (0-2) 0 % (0-2) Band Neutrophils 0 % (0-8) 0 % (0-8) Platelet Estimate Decreased Decreased Platelet Morphology Normal Normal Sodium Level 141 MMOL/L (136-145) 140 MMOL/L (136-145) Potassium Level 4.7 MMOL/L (3.5-5.1) 5.1 MMOL/L (3.5-5.1) Chloride Level 112 MMOL/L (98-107) 109 MMOL/L (98-107) Carbon Dioxide Level 20 MMOL/L (21-32) 24 MMOL/L (21-32) Anion Gap 9 mmol/L (5-15) 7 mmol/L (5-15) Blood Urea Nitrogen 33 mg/dL (7-18) 31 mg/dL (7-18) Creatinine 1.0 MG/DL (0.55-1.30) 0.9 MG/DL (0.55-1.30) Estimat Glomerular Filtration Rate mL/min (>60) mL/min (>60) Glucose Level 174 MG/DL (74-106) 77 MG/DL (74-106) Calcium Level 8.0 MG/DL (8.5-10.1) 8.0 MG/DL (8.5-10.1) Total Bilirubin 0.4 MG/DL (0.2-1.0) 0.5 MG/DL (0.2-1.0) Aspartate Amino Transf (AST/SGOT) 52 U/L (15-37) 41 U/L (15-37) Alanine Aminotransferase (ALT/SGPT) 205 U/L (12-78) 158 U/L (12-78) Alkaline Phosphatase 39 U/L (46-116) 37 U/L (46-116) Total Protein 7.8 G/DL (6.4-8.2) 7.3 G/DL (6.4-8.2) Albumin 1.8 G/DL (3.4-5.0) 1.7 G/DL (3.4-5.0) Globulin 6.0 g/dL 5.6 g/dL Albumin/Globulin Ratio 0.3 (1.0-2.7) 0.3 (1.0-2.7) Hypochromasia 2+ Vancomycin Level Trough 9.3 ug/mL (5.0-12.0) Objective: GENERAL: Chronically ill-appearing female, currently more alert HEENT: Negative. NECK: Supple. The patient is significantly contracted at this time. LUNGS: improved rhonchi. Moderate air entry. no wheeze CARDIAC: S1 and S2. The patient with regular rate and rhythm without murmurs, rubs, gallops. ABDOMEN: Soft, nontender. G-tube in place. no distention EXTREMITIES: No cyanosis, clubbing, or edema. Significant contractures. NEUROLOGICALLY: contracted, difficult to fully assess, more alert SKIN: Noted. Ac Bernal MD Apr 08, 2019 08:38
[2019-04-08] MEDS ORDERED: Fluconazole 100mg tab GT SCH (09:00)
[2019-04-08] MEDS ORDERED: Brimonidine 0.2% Opth Sol BOTH EYES SCH (09:00)
[2019-04-08] MEDS ORDERED: Multivitamin w/Minerals tab ORAL SCH ×2 (09:00)
[2019-04-08] MEDS ORDERED: Fluconazole 100mg tab ORAL SCH (09:00)
[2019-04-08] MEDS ORDERED: Ascorbic Acid 500mg tab GT SCH ×2 (09:00)
[2019-04-08] MEDS ORDERED: Docusate 100mg/10ml Liq GT SCH (09:00)
[2019-04-08] MEDS ORDERED: Milk of Magnesia 30ml Ud GT SCH ×2 (09:00)
--- NOTE | 2019-04-08 09:17 | NUR ---
NURSE NOTES: Patient off levophed. BP 118/52. HR 55. Patient asleep, easily arousable. No acute distress noted. on RA.
--- NOTE | 2019-04-08 10:15 | Infectious Diseases Prog Note ---
Assessment/Plan Assessment/Plan IMPRESSION: Sepsis with septic shock. resolving Urinary tract infection. Fungal Hydronephrosis Bilateral renal stone Dementia Hypernatremia, corrected hypokalemia, corrected Acute renal failure, Methicillin-resistant Staphylococcus aureus colonization. Status post gastrostomy tube placement. RECOMMENDATIONS: 1. Continue vancomycin, Fluconazole & meropenem. 2. will f/u cultures Subjective ROS Limited/Unobtainable: Yes Cardiovascular: Reports: other - pff of Levophed Allergies: Coded Allergies: MORPHINE (Verified Allergy, Unknown, 07/18/09) Objective Vital Signs Last 24 Hour Vital Signs Date Time Temp Pulse Resp B/P (MAP) Pulse Ox O2 Delivery O2 Flow Rate FiO2 04/08/19 10:00 54 22 108/55 (72) 98 04/08/19 09:30 54 20 107/57 (74) 98 04/08/19 09:00 55 22 118/52 (74) 99 04/08/19 08:45 49 20 115/48 (70) 100 04/08/19 08:30 52 19 126/52 (76) 100 04/08/19 08:15 48 20 96/46 (63) 100 04/08/19 08:00 98.5 55 15 118/46 (70) 100 04/08/19 08:00 Room Air 04/08/19 08:00 55 04/08/19 07:45 52 20 90/45 (60) 100 04/08/19 07:30 55 21 95/54 (68) 97 04/08/19 07:15 52 22 91/52 (65) 98 04/08/19 07:00 52 21 127/59 (81) 99 04/08/19 07:00 126/60 04/08/19 06:45 50 19 126/60 (82) 100 04/08/19 06:30 46 21 122/57 (78) 99 04/08/19 06:15 46 18 103/54 (70) 98 04/08/19 06:00 52 20 104/56 (72) 98 04/08/19 06:00 105/60 04/08/19 05:45 49 19 120/50 (73) 100 04/08/19 05:30 44 18 117/45 (69) 100 04/08/19 05:16 102/50 04/08/19 05:15 52 21 117/44 (68) 99 04/08/19 05:00 47 21 117/82 (94) 98 04/08/19 04:45 48 20 115/50 (71) 100 04/08/19 04:30 48 18 127/54 (78) 100 04/08/19 04:00 97.8 47 19 115/57 (76) 99 04/08/19 04:00 58 04/08/19 04:00 115/57 04/08/19 04:00 Room Air 04/08/19 03:30 49 22 104/58 (73) 98 04/08/19 03:00 108/55 04/08/19 03:00 55 22 108/55 (72) 98 04/08/19 02:30 49 20 107/47 (67) 98 04/08/19 02:00 112/45 04/08/19 02:00 49 18 106/57 (73) 97 04/08/19 01:30 54 19 104/57 (73) 97 04/08/19 01:02 98/50 04/08/19 01:00 55 17 98/50 (66) 97 04/08/19 00:30 52 17 104/44 (64) 99 04/08/19 00:00 Room Air 04/08/19 00:00 97.5 49 21 119/46 (70) 98 04/07/19 20:00 59 04/07/19 20:00 Room Air 04/07/19 20:00 97.5 59 19 90/56 (67) 97 04/07/19 16:00 55 04/07/19 16:00 97.3 59 24 114/78 (90) 97 04/07/19 16:00 Room Air 04/07/19 15:00 55 26 93/47 (62) 97 04/07/19 14:00 52 25 120/85 (97) 98 04/07/19 13:00 58 116/71 (86) 100 04/07/19 12:00 57 04/07/19 12:00 Room Air 04/07/19 12:00 97.8 58 91/73 (79) 98 04/07/19 11:00 61 118/68 (85) 95 Height (Feet): 5 Height (Inches): 4.00 Weight (Pounds): 82 General Appearance: cachetic HEENT: mucous membranes moist, other - poor dentition Cardiovascular: bradycardia, other - left arm PICC line Abdomen: soft, non tender, other - GT feeding Extremities: no edema Neurologic/Psychiatric: unresponsiveness Musculoskeletal: atrophy Current Medications Medications (Trade) Dose Ordered Sig/Marcos Route PRN Reason Start Time Stop Time Status Last Admin Dose Admin Acetaminophen (Tylenol) 650 mg Q4H PRN GT Mild Pain/Temp > 100.5 04/08/19 01:30 05/04/19 17:29 Amlodipine Besylate (Norvasc) 5 mg DAILY GT 04/08/19 09:00 05/04/19 08:59 Ascorbic Acid (Vitamin C) 500 mg DAILY GT 04/08/19 09:00 05/04/19 08:59 04/08/19 08:35 Bisacodyl (Dulcolax) 10 mg DAILYPRN PRN RECTAL Constipation 04/08/19 17:30 05/07/19 17:29 Brimonidine Tartrate (Alphagan) 1 drop TID BOTH EYES 04/08/19 09:00 05/04/19 08:59 04/08/19 08:34 Chlorhexidine Gluconate (Kylee-Hex 2%) 1 applic DAILY@2000 TOPIC 04/08/19 20:00 05/05/19 19:59 Docusate Sodium (Colace) 100 mg BID GT 04/08/19 09:00 05/04/19 08:59 04/08/19 08:34 Fluconazole (Diflucan) 100 mg DAILY GT 04/08/19 09:00 04/14/19 10:44 04/08/19 08:34 Lansoprazole (Prevacid) 30 mg DAILY GT 04/08/19 09:00 05/08/19 08:59 04/08/19 08:35 Lorazepam (Ativan) 1 mg Q4H PRN GT For Anxiety 04/08/19 01:45 04/14/19 17:44 Magnesium Hydroxide (Mom) 30 ml DAILY GT 04/08/19 09:00 05/04/19 08:59 04/08/19 08:34 Multivitamins Therapeutic (Therapeutic Multivitamin) 1 ea DAILY ORAL 04/08/19 09:00 05/04/19 08:59 04/08/19 08:34 Norepinephrine Bitartrate 4 mg/ Dextrose 250 ml @ 0 mls/hr Q24H IV 04/09/19 00:00 05/08/19 00:00 04/08/19 05:16 Olanzapine (ZyPREXA) 5 mg TID GT 04/08/19 09:00 05/04/19 08:59 04/08/19 08:35 Sodium Chloride 1,000 ml @ 75 mls/hr [id number] IV 04/08/19 00:30 05/07/19 11:59 04/08/19 01:02 Zolpidem Tartrate (Ambien) 5 mg HSPRN PRN GT Insomnia 04/08/19 21:00 04/14/19 20:59 Jacobo Seals MD Apr 08, 2019 10:15
--- NOTE | 2019-04-08 10:21 | NUR ---
RD ASSESSMENT & RECOMMENDATIONS SEE CARE ACTIVITY FOR COMPLETE ASSESSMENT DAILY ESTIMATED NEEDS: Needs based on Underweight, sepsis/ 40g 30-35 kcals/kg 4735-9843 total kcals 1.25-2 g protein/kg 50-80 g total protein 25-30 mL/kg 3173-3200 total fluid mLs NUTRITION DIAGNOSIS: * Swallowing difficulty R/T dysphagia as evidenced by pt is PEG dep. * Increased kcal/prot needs R/T underweight status,sepsis, as evidenced by low BMI per guidelines, noted w/ moderate to severe generalized wasting, elev WBC, on- now off pressor support. CURRENT TF:Jevity 1.2 @ 50ml/hr x 24 hrs ENTERAL NUTRITION RECOMMENDATIONS: Glucerna 1.2 @ 50ml/hr x 24 hrs to provide 1200ml, 1440kcal, 72g prot, 966ml free H2O * Rec TF change for glycemic control- pt is septic w/ hyperglycemia * REC TROPHIC FEEDS WHILE ON PRESSOR SUPPORT-> GLUCERNA 1.2 @5-10ML/HR * * HOB over 30 degrees/ water flush per MD --- With good glycemic control, maintain current TF Jevity 1.2 @50ml to meet 100% est needs. ------ ADDITIONAL RECOMMENDATIONS: * Calibrated bedscale wt + weekly wt monitoring Bed scale: 88.7lbs EMR wt: 76lbs Recent adm wt: 96.6lbs * Wound care: KAYLEEN BID via GT * REC CARB CONTROL FORMULA FOR HYPERGLYCEMIA * TROPHIC FEEDS WHILE ON PRESSOR SUPPORT (5-10ml/hr) Monitor for hemodynamic stability -
--- NOTE | 2019-04-08 11:00 | NUR ---
NURSE NOTES: Patient is asleep, easily arousable. VSS. afebrile. Patient on RA. On Jevity 1.2 at 50ml/hr. HOB kept elevated. no residual noted. 1/2NS at 75ml/hr via left subclavian TLC, dressing intact, clean and dry. canseco cath intact, draining yellow urine. patient was turned and repositioned. oral care and canseco care provided. patient kept clean and dry.
--- NOTE | 2019-04-08 11:05 | Surgery Progress Note ---
Surgery Progress Note Subjective Procedure Performed left subclavian central venous catheter insertion Additional Comments no acute events slowly improving no n/v/f/c exam stable. Objective Last 24 Hour Vital Signs Date Time Temp Pulse Resp B/P (MAP) Pulse Ox O2 Delivery O2 Flow Rate FiO2 04/08/19 10:00 54 22 108/55 (72) 98 04/08/19 09:30 54 20 107/57 (74) 98 04/08/19 09:00 55 22 118/52 (74) 99 04/08/19 08:45 49 20 115/48 (70) 100 04/08/19 08:30 52 19 126/52 (76) 100 04/08/19 08:15 48 20 96/46 (63) 100 04/08/19 08:00 98.5 55 15 118/46 (70) 100 04/08/19 08:00 Room Air 04/08/19 08:00 55 04/08/19 07:45 52 20 90/45 (60) 100 04/08/19 07:30 55 21 95/54 (68) 97 04/08/19 07:15 52 22 91/52 (65) 98 04/08/19 07:00 52 21 127/59 (81) 99 04/08/19 07:00 126/60 04/08/19 06:45 50 19 126/60 (82) 100 04/08/19 06:30 46 21 122/57 (78) 99 04/08/19 06:15 46 18 103/54 (70) 98 04/08/19 06:00 52 20 104/56 (72) 98 04/08/19 06:00 105/60 04/08/19 05:45 49 19 120/50 (73) 100 04/08/19 05:30 44 18 117/45 (69) 100 04/08/19 05:16 102/50 04/08/19 05:15 52 21 117/44 (68) 99 04/08/19 05:00 47 21 117/82 (94) 98 04/08/19 04:45 48 20 115/50 (71) 100 04/08/19 04:30 48 18 127/54 (78) 100 04/08/19 04:00 97.8 47 19 115/57 (76) 99 04/08/19 04:00 58 04/08/19 04:00 115/57 04/08/19 04:00 Room Air 04/08/19 03:30 49 22 104/58 (73) 98 04/08/19 03:00 108/55 04/08/19 03:00 55 22 108/55 (72) 98 04/08/19 02:30 49 20 107/47 (67) 98 04/08/19 02:00 112/45 04/08/19 02:00 49 18 106/57 (73) 97 04/08/19 01:30 54 19 104/57 (73) 97 04/08/19 01:02 98/50 04/08/19 01:00 55 17 98/50 (66) 97 04/08/19 00:30 52 17 104/44 (64) 99 04/08/19 00:00 Room Air 04/08/19 00:00 97.5 49 21 119/46 (70) 98 04/07/19 20:00 59 04/07/19 20:00 Room Air 04/07/19 20:00 97.5 59 19 90/56 (67) 97 04/07/19 16:00 55 04/07/19 16:00 97.3 59 24 114/78 (90) 97 04/07/19 16:00 Room Air 04/07/19 15:00 55 26 93/47 (62) 97 04/07/19 14:00 52 25 120/85 (97) 98 04/07/19 13:00 58 116/71 (86) 100 04/07/19 12:00 57 04/07/19 12:00 Room Air 04/07/19 12:00 97.8 58 91/73 (79) 98 I&O Intake and Output 04/07/19 04/08/19 19:00 07:00 Intake Total 1205 ml 617.50 ml Output Total 1350 ml 900 ml Balance -145 ml -282.50 ml Intake Free Water 150 ml IV Total 605 ml 517.50 ml Tube Feeding 450 ml 100 ml Output Urine Total 1350 ml 900 ml Dressing: dry Wound: clean Drains: other Cardiovascular: RSR Respiratory: clear Abdomen: soft, present bowel sounds, non-distended Extremities: no edema, no tenderness, no cyanosis Plan Problems: (1) Abnormal LFTs Assessment & Plan: likely related to hypotension and sepsis will trend Echo ordered and results noted. (2) Septic shock Assessment & Plan: 79F in septic shock, hypotensive, on pressors, leukocytosis , lactic acidosis unable to obtain peripheral line has IO but not safe in elderly in her condition needs central venous access. see note IV abx labs improving exam stable iv fluids will follow with recs (3) Decubitus skin ulcer Assessment & Plan: Pt presented on admission with contractures and multiple pressure injuries. Non-Blanchable erythema without induration or fluctuance noted to R scapula (L) 4cm x (W)3.2cm. Two partial thickness pressure injuries noted to R thoracic area-Proximal wound is a partial thickness wound. Base of wound is moist and viable with surrounding non-blanching erythema without induration/fluctuance (L)2.5cm x (W) 3cm. Inferior wound in close proximity to above wound -Base of wound is moist and viable with surrounding non-Blanching erythema without induration/ fluctuance (L)3.5cm x (W)2cm. DTPI noted to L trochanter. Base of wound is purple with surrounding maroon borders. Base of wound is indurated. Periwound without erythema or induration.(L )4.3cm x (W)4.2cm. DTPI noted to R trochanter.Base of wound is purple with surrounding maroon discoloration. Base of wound is indurated. Non-blanchable erythema without fluctuance periwound. (L)7.3cm x (W)7.2cm. DTPI noted to sacrum. Base of wound is indurated- purple with maroon areas. Non- blanching erythema without fluctuance or induration periwound. DTPI that is partially opened along borders distal /lateral R foot.Base of wound is fluctuant and maroon in colour .No exudate noted. (L)3cm x (W)2.5cm. Periwound is pink and blanchable. Bilat heels and malleoli each feet are pink and blanchable. No other areas of concerns noted. Tx.Plan: Apply Cavilon Skin Barrier [place] to R scapula. Cover with Optifoam drsg. Change every 7 days and prn. Apply Cavilon Skin barrier spray to R and L Trochanters. Apply Triad paste. Cover each site with Optifoam drsg. Change every 3 days and prn. Apply Cavilon Skin Barrier [place] to Sacrum then apply Triad. Cover with Optifoam drsg. Change every 3 days and PRN. Apply Cavilon Skin Barrier to distal/lateral R foot. Cover with Optifoam drsg. Change every 3 days and prn. Apply Triad Paste to wounds R thoracic (2 sites). Cover with Optifoam drsg. change every 3 days and prn APM/LEONARD mattress overlay. Reposition at least every 2hours or as tolerated. Place pillow between knees. Off-load heels with pillow. Alistair Nieves Apr 08, 2019 11:05
--- NOTE | 2019-04-08 11:41 | NUR ---
COOK ENCHILADAINSURANCE CHECKER SI: SEPSIS, FEVER, BRADYCARDIA T. 98.5 HR 50 RR 15 B/P 118/46 RA 98% AST 41 ALT 158 ALK PHOS 37 IS: NORVASC PO DIFLUCAN GT IVF NS @ 75ML/HR ICU STATUS
--- NOTE | 2019-04-08 13:10 | NUR ---
TRANSFER TO FLOOR: Patient transferred to [facility]. Report given to JUNIOR Wagoner. No belongings. medications given to primary nurse.
--- NOTE | 2019-04-08 13:10 | NUR ---
NURSE NOTES: Received report JUNIOR Danielson. Patient has no belonging, belongings list checked with RN, turbine engine assembler on, Picture taken for wounds, refer to WCP, no active s/s cardiac, respiratory distress noticed at this time, patient on room air, patient on g-tube feeding, Jevity 1.2, no residural, as prescribed rate, Bryant catheter draining well to gravity, IV on left subclavian TIC, endorsed IV inserted on 04/03/19, asymptomatic, patent, intact, IV fluid running as prescribed rate, SCD on, Bed in lowest position, side on P200 mattress, side rails upx2, call light within reach. Will continue to monitor.
[2019-04-08] MEDS ORDERED: NS 275ml ONE (14:16)
[2019-04-08] MEDS ORDERED: NS 500ML ONE (14:16)
[2019-04-08] MEDS ORDERED: D5W 275ml ONE (14:16)
[2019-04-08] MEDS ORDERED: 1/2 NS 1000ml IV ONE (14:16)
[2019-04-08] MEDS: Brimonidine 0.2% Opth Sol BOTH EYES SCH (17:12)
[2019-04-08] MEDS: Docusate 100mg/10ml Liq GT SCH (17:13)
--- NOTE | 2019-04-08 19:42 | NUR ---
HAND-OFF: Report given to JUNIOR Ashraf.
--- NOTE | 2019-04-08 19:43 | NUR ---
NURSE NOTES: Received report JUNIOR Wagoner. Pt resting in bed, no active s/s cardiac or respiratory distress noticed at this time, patient on room air, patient on g-tube feeding, Jevity 1.2, no residual, as prescribed rate, Bryant catheter draining well to gravity, IV on left subclavian TIC, endorsed IV inserted on 04/03/19, asymptomatic, patent, intact, IV fluid running as prescribed rate, SCD on, Bed in lowest position, side on P200 mattress, side rails upx2, call light within reach. Will continue to monitor.
[2019-04-08] MEDS ORDERED: Dyna-Hex 2% Top Sol 2oz TOPIC SCH (20:00)
[2019-04-08] MEDS ORDERED: Zolpidem 5mg tab GT PRN ×2 (21:00)
[2019-04-08] MEDS: Dyna-Hex 2% Top Sol 2oz TOPIC SCH (22:27)
[2019-04-09] VITALS: BP 122/60
[2019-04-09 04:00] VITALS: BP 108/48
[2019-04-09 06:27] LABS: BASOPHILS % (AUTO) 1.3 % (0.0-2.0); EOSINOPHILS % (AUTO) 1.5 % (0.0-3.0); HEMATOCRIT 28.3 % (37.0-47.0); HEMOGLOBIN 9.1 G/DL (12.0-16.0); LYMPHOCYTES % (AUTO) 42.3 % (20.0-45.0); MEAN CORPUSCULAR VOLUME 91 FL (80-99); MONOCYTES % (AUTO) 5.5 % (1.0-10.0); NEUTROPHILS % (AUTO) 49.3 % (45.0-75.0); PLATELET COUNT 106 K/UL (150-450); RED BLOOD COUNT 3.11 M/UL (4.20-5.40); RED CELL DISTRIBUTION WIDTH 17.8 % (11.6-14.8); WHITE BLOOD COUNT 8.1 K/UL (4.8-10.8)
[2019-04-09 06:42] LABS: ALANINE AMINOTRANSFERASE 109 U/L (12-78); ALBUMIN 1.8 G/DL (3.4-5.0); ALBUMIN/GLOBULIN RATIO 0.3 (1.0-2.7); ALKALINE PHOSPHATASE 44 U/L (46-116); ANION GAP 4 mmol/L (5-15); ASPARTATE AMINO TRANSFERASE 26 U/L (15-37); BILIRUBIN,TOTAL 0.3 MG/DL (0.2-1.0); BLOOD UREA NITROGEN 25 mg/dL (7-18); CALCIUM 8.6 MG/DL (8.5-10.1); CARBON DIOXIDE 27 MMOL/L (21-32); CHLORIDE 108 MMOL/L (98-107); CREATININE 0.8 MG/DL (0.55-1.30); POTASSIUM 4.2 MMOL/L (3.5-5.1); SODIUM 139 MMOL/L (136-145)
--- NOTE | 2019-04-09 07:50 | NUR ---
HAND-OFF: Report given to JUNIOR Moura. Endorsed plan of care.
[2019-04-09 08:00] VITALS: BP 107/40
[2019-04-09] MEDS: Milk of Magnesia 30ml Ud GT SCH (10:08)
[2019-04-09] MEDS: Fluconazole 100mg tab GT SCH (10:08)
[2019-04-09] MEDS: Multivitamin w/Minerals tab ORAL SCH (10:10)
[2019-04-09] MEDS: Docusate 100mg/10ml Liq GT SCH ×2 (10:10→18:08)
[2019-04-09] MEDS: Ascorbic Acid 500mg tab GT SCH (10:11)
[2019-04-09] MEDS: Brimonidine 0.2% Opth Sol BOTH EYES SCH ×3 (10:13→18:08)
[2019-04-09] MEDS ORDERED: NS 275ml ONE (10:17)
[2019-04-09] MEDS ORDERED: 1/2 NS 1000ml IV ONE (10:17)
--- NOTE | 2019-04-09 10:37 | Infectious Diseases Prog Note ---
Assessment/Plan Assessment/Plan antibiotics : fluconazole A 1. fungal UTI 2. septic shock resolved 3. renal failure improving 4. bilateral renal stones 5, dementia P 1. continue fluconazole 4 more days 2. will follow up cultures Subjective ROS Limited/Unobtainable: Yes Allergies: Coded Allergies: MORPHINE (Verified Allergy, Unknown, 07/18/09) Objective Vital Signs Last 24 Hour Vital Signs Date Time Temp Pulse Resp B/P (MAP) Pulse Ox O2 Delivery O2 Flow Rate FiO2 04/09/19 10:10 61 107/40 04/09/19 04:00 98.3 55 18 108/48 (68) 97 04/09/19 04:00 55 04/09/19 00:00 57 04/09/19 00:00 97.7 57 18 122/60 (80) 93 04/08/19 21:00 Room Air 04/08/19 20:00 57 04/08/19 20:00 98.4 57 18 119/70 (86) 97 04/08/19 16:00 Room Air 04/08/19 16:00 98.0 67 20 138/77 (97) 92 04/08/19 15:51 64 04/08/19 12:00 59 04/08/19 12:00 Room Air 04/08/19 12:00 98.5 56 18 120/48 (72) 98 04/08/19 11:00 56 25 102/57 (72) 97 Height (Feet): 5 Height (Inches): 4.00 Weight (Pounds): 86 Respiratory/Chest: lungs clear Cardiovascular: normal rate, regular rhythm, no gallop/murmur Abdomen: soft, non tender, other - GT Extremities: no edema Laboratory Tests Test 04/09/19 05:15 White Blood Count 8.1 K/UL (4.8-10.8) Red Blood Count 3.11 M/UL (4.20-5.40) L Hemoglobin 9.1 G/DL (12.0-16.0) L Hematocrit 28.3 % (37.0-47.0) L Mean Corpuscular Volume 91 FL (80-99) Mean Corpuscular Hemoglobin 29.5 PG (27.0-31.0) Mean Corpuscular Hemoglobin Concent 32.4 G/DL (32.0-36.0) Red Cell Distribution Width 17.8 % (11.6-14.8) H Platelet Count 106 K/UL (150-450) L Mean Platelet Volume 9.0 FL (6.5-10.1) Neutrophils (%) (Auto) 49.3 % (45.0-75.0) Lymphocytes (%) (Auto) 42.3 % (20.0-45.0) Monocytes (%) (Auto) 5.5 % (1.0-10.0) Eosinophils (%) (Auto) 1.5 % (0.0-3.0) Basophils (%) (Auto) 1.3 % (0.0-2.0) Sodium Level 139 MMOL/L (136-145) Potassium Level 4.2 MMOL/L (3.5-5.1) Chloride Level 108 MMOL/L (98-107) H Carbon Dioxide Level 27 MMOL/L (21-32) Anion Gap 4 mmol/L (5-15) L Blood Urea Nitrogen 25 mg/dL (7-18) H Creatinine 0.8 MG/DL (0.55-1.30) Estimat Glomerular Filtration Rate mL/min (>60) Glucose Level 112 MG/DL (74-106) H Calcium Level 8.6 MG/DL (8.5-10.1) Total Bilirubin 0.3 MG/DL (0.2-1.0) Aspartate Amino Transf (AST/SGOT) 26 U/L (15-37) Alanine Aminotransferase (ALT/SGPT) 109 U/L (12-78) H Alkaline Phosphatase 44 U/L (46-116) L Total Protein 7.6 G/DL (6.4-8.2) Albumin 1.8 G/DL (3.4-5.0) L Globulin 5.8 g/dL Albumin/Globulin Ratio 0.3 (1.0-2.7) L Current Medications Medications (Trade) Dose Ordered Sig/Marcos Route PRN Reason Start Time Stop Time Status Last Admin Dose Admin Acetaminophen (Tylenol) 650 mg Q4H PRN GT Mild Pain/Temp > 100.5 04/08/19 13:30 05/04/19 17:29 Amlodipine Besylate (Norvasc) 5 mg DAILY GT 04/09/19 09:00 05/04/19 08:59 04/09/19 10:10 Ascorbic Acid (Vitamin C) 500 mg DAILY GT 04/09/19 09:00 05/04/19 08:59 04/09/19 10:11 Bisacodyl (Dulcolax) 10 mg DAILYPRN PRN RECTAL Constipation 04/08/19 13:30 05/07/19 13:29 Brimonidine Tartrate (Alphagan) 1 drop TID BOTH EYES 04/08/19 18:00 05/04/19 08:59 04/09/19 10:13 Chlorhexidine Gluconate (Kylee-Hex 2%) 1 applic DAILY@2000 TOPIC 04/08/19 20:00 05/05/19 19:59 04/08/19 22:27 Docusate Sodium (Colace) 100 mg BID GT 04/08/19 18:00 05/04/19 08:59 04/09/19 10:10 Fluconazole (Diflucan) 100 mg DAILY GT 04/09/19 09:00 04/14/19 10:44 04/09/19 10:08 Lansoprazole (Prevacid) 30 mg DAILY GT 04/09/19 09:00 05/08/19 08:59 04/09/19 10:11 Lorazepam (Ativan) 1 mg Q4H PRN GT For Anxiety 04/08/19 13:30 04/14/19 13:29 Magnesium Hydroxide (Mom) 30 ml DAILY GT 04/09/19 09:00 05/04/19 08:59 04/09/19 10:08 Multivitamins Therapeutic (Therapeutic Multivitamin) 1 ea DAILY ORAL 04/09/19 09:00 05/04/19 08:59 04/09/19 10:10 Olanzapine (ZyPREXA) 5 mg TID GT 04/08/19 18:00 05/04/19 08:59 04/09/19 10:10 Sodium Chloride 1,000 ml @ 75 mls/hr [id number] IV 04/08/19 13:30 05/07/19 11:59 04/09/19 03:17 Zolpidem Tartrate (Ambien) 5 mg HSPRN PRN GT Insomnia 04/08/19 21:00 04/14/19 20:59 Lindsay Poole MD Apr 09, 2019 10:37
[2019-04-09 12:00] VITALS: BP 119/69
--- NOTE | 2019-04-09 12:21 | Pulmonolgy Critical Care Note ---
Critical Care - Asmt/Plan Assessment/Plan: Pulmonary CCM Progress Note Assessment/Plan IMPRESSION: Fever, likely sepsis, severe protein-calorie malnutrition, contractures, acute on chronic renal failure, hypernatremia, leukocytosis, evidence of anemia, history of hypertension, bedbound state, dementia. toxic metabolic encephalopathy No new complaints PLAN nutrition as tolerated; elevate head IV antibiotics wound care monitor protein levels close follow up remains critical but improved IV hydration for now renal parameters improved d/w consultants and ancillary staff medications/laboratory data/nursing notes/ICU care reviewed in detail note reviewed and edited care discussed with RN and RT ICU time spent 38 minutes Critical Care - Subjective Interval Events: tolerating feeds ROS Limited/Unobtainable: Yes Condition: critical EKG Rhythm: Sinus Rhythm Residuals: minimal Tube Feeding Tolerated: yes Labs noted Test 04/03/19 16:30 04/03/19 17:30 04/03/19 17:55 04/03/19 18:01 White Blood Count 17.5 K/UL (4.8-10.8) Red Blood Count 4.72 M/UL (4.20-5.40) Hemoglobin 12.9 G/DL (12.0-16.0) Hematocrit 42.3 % (37.0-47.0) Mean Corpuscular Volume 90 FL (80-99) Mean Corpuscular Hemoglobin 27.4 PG (27.0-31.0) Mean Corpuscular Hemoglobin Concent 30.5 G/DL (32.0-36.0) Red Cell Distribution Width 15.6 % (11.6-14.8) Platelet Count 181 K/UL (150-450) Mean Platelet Volume 10.9 FL (6.5-10.1) Neutrophils (%) (Auto) 63.8 % (45.0-75.0) Lymphocytes (%) (Auto) 32.9 % (20.0-45.0) Monocytes (%) (Auto) 2.6 % (1.0-10.0) Eosinophils (%) (Auto) 0.0 % (0.0-3.0) Basophils (%) (Auto) 0.7 % (0.0-2.0) Sodium Level 151 MMOL/L (136-145) Potassium Level 4.4 MMOL/L (3.5-5.1) Chloride Level 111 MMOL/L (98-107) Carbon Dioxide Level 28 MMOL/L (21-32) Anion Gap 12 mmol/L (5-15) Blood Urea Nitrogen 99 mg/dL (7-18) Creatinine 2.4 MG/DL (0.55-1.30) Estimat Glomerular Filtration Rate mL/min (>60) Glucose Level 267 MG/DL (74-106) Lactic Acid Level 3.80 mmol/L (0.4-2.0) 3.00 mmol/L (0.66-2.22) Calcium Level 9.4 MG/DL (8.5-10.1) Total Bilirubin 0.5 MG/DL (0.2-1.0) Aspartate Amino Transf (AST/SGOT) 212 U/L (15-37) Alanine Aminotransferase (ALT/SGPT) 273 U/L (12-78) Alkaline Phosphatase 42 U/L (46-116) Total Creatine Kinase 438 U/L (26-308) Creatine Kinase MB 3.5 NG/ML (0.0-3.6) Creatine Kinase MB Relative Index 0.7 Troponin I 0.088 ng/mL (0.000-0.056) Pro-B-Type Natriuretic Peptide 2639 pg/mL (0-125) Total Protein 10.6 G/DL (6.4-8.2) Albumin 2.4 G/DL (3.4-5.0) Globulin 8.2 g/dL Albumin/Globulin Ratio 0.3 (1.0-2.7) Urine Color Yellow Urine Appearance Slightly cloudy Urine pH 5 (4.5-8.0) Urine Specific [place] 1.030 (1.005-1.035) Urine Protein 3+ (NEGATIVE) Urine Glucose (UA) Negative (NEGATIVE) Urine Ketones Negative (NEGATIVE) Urine Blood 4+ (NEGATIVE) Urine Nitrite Negative (NEGATIVE) Urine Bilirubin Negative (NEGATIVE) Urine Urobilinogen Normal MG/DL (0.0-1.0) Urine Leukocyte Esterase 3+ (NEGATIVE) Urine RBC 10-15 /HPF (0 - 2) Urine WBC 20-30 /HPF (0 - 2) Urine Squamous Epithelial Cells Moderate /LPF (NONE/OCC) Urine Bacteria Many /HPF (NONE) Urine Yeast Many /HPF (NONE) Arterial Blood pH 7.448 (7.350-7.450) Arterial Blood Partial Pressure CO2 30.0 mmHg (35.0-45.0) Arterial Blood Partial Pressure O2 141.8 mmHg (75.0-100.0) Arterial Blood HCO3 20.3 mmol/L (22.0-26.0) Arterial Blood Oxygen Saturation 97.9 % (95-100) Arterial Blood Base Excess -2.9 (-2-2) Jonah Test Positive Test 04/04/19 03:10 04/04/19 05:00 04/04/19 12:00 04/04/19 18:10 Lactic Acid Level 1.40 mmol/L (0.4-2.0) 1.80 mmol/L (0.4-2.0) White Blood Count 18.8 K/UL (4.8-10.8) Red Blood Count 3.06 M/UL (4.20-5.40) Hemoglobin 8.6 G/DL (12.0-16.0) Hematocrit 27.4 % (37.0-47.0) Mean Corpuscular Volume 90 FL (80-99) Mean Corpuscular Hemoglobin 28.1 PG (27.0-31.0) Mean Corpuscular Hemoglobin Concent 31.4 G/DL (32.0-36.0) Red Cell Distribution Width 16.2 % (11.6-14.8) Platelet Count 107 K/UL (150-450) Mean Platelet Volume 10.3 FL (6.5-10.1) Neutrophils (%) (Auto) % (45.0-75.0) Lymphocytes (%) (Auto) % (20.0-45.0) Monocytes (%) (Auto) % (1.0-10.0) Eosinophils (%) (Auto) % (0.0-3.0) Basophils (%) (Auto) % (0.0-2.0) Differential Total Cells Counted 100 Neutrophils % (Manual) 37 % (45-75) Lymphocytes % (Manual) 54 % (20-45) Monocytes % (Manual) 9 % (1-10) Eosinophils % (Manual) 0 % (0-3) Basophils % (Manual) 0 % (0-2) Band Neutrophils 0 % (0-8) Platelet Estimate Decreased Platelet Morphology Normal Hypochromasia 1+ Anisocytosis 1+ Sodium Level 156 MMOL/L (136-145) Potassium Level 2.9 MMOL/L (3.5-5.1) Chloride Level 123 MMOL/L (98-107) Carbon Dioxide Level 23 MMOL/L (21-32) Anion Gap 10 mmol/L (5-15) Blood Urea Nitrogen 79 mg/dL (7-18) Creatinine 1.5 MG/DL (0.55-1.30) Estimat Glomerular Filtration Rate mL/min (>60) Glucose Level 145 MG/DL (74-106) Calcium Level 7.6 MG/DL (8.5-10.1) Random Vancomycin Level 2.7 ug/mL Stool Occult Blood Negative (NEGATIVE) Test 04/05/19 04:00 White Blood Count 14.0 K/UL (4.8-10.8) Red Blood Count 3.07 M/UL (4.20-5.40) Hemoglobin 8.5 G/DL (12.0-16.0) Hematocrit 27.2 % (37.0-47.0) Mean Corpuscular Volume 89 FL (80-99) Mean Corpuscular Hemoglobin 27.7 PG (27.0-31.0) Mean Corpuscular Hemoglobin Concent 31.3 G/DL (32.0-36.0) Red Cell Distribution Width 15.9 % (11.6-14.8) Platelet Count 75 K/UL (150-450) Mean Platelet Volume 10.7 FL (6.5-10.1) Neutrophils (%) (Auto) % (45.0-75.0) Lymphocytes (%) (Auto) % (20.0-45.0) Monocytes (%) (Auto) % (1.0-10.0) Eosinophils (%) (Auto) % (0.0-3.0) Basophils (%) (Auto) % (0.0-2.0) Sodium Level 141 MMOL/L (136-145) Potassium Level 4.5 MMOL/L (3.5-5.1) Chloride Level 112 MMOL/L (98-107) Carbon Dioxide Level 24 MMOL/L (21-32) Anion Gap 5 mmol/L (5-15) Blood Urea Nitrogen 38 mg/dL (7-18) Creatinine 0.9 MG/DL (0.55-1.30) Estimat Glomerular Filtration Rate mL/min (>60) Glucose Level 113 MG/DL (74-106) Calcium Level 7.8 MG/DL (8.5-10.1) Magnesium Level 2.1 MG/DL (1.8-2.4) Random Vancomycin Level 6.0 ug/mL Objective: GENERAL: Chronically ill-appearing female, currently more alert HEENT: Negative. NECK: Supple. The patient is significantly contracted at this time. LUNGS: improved rhonchi. Moderate air entry. no wheeze CARDIAC: S1 and S2. The patient with regular rate and rhythm without murmurs, rubs, gallops. ABDOMEN: Soft, nontender. G-tube in place. no distention EXTREMITIES: No cyanosis, clubbing, or edema. Significant contractures. NEUROLOGICALLY: contracted, difficult to fully assess, more alert SKIN: Noted. Micro: Microbiology Date/Time Source Procedure Growth Status 04/03/19 16:30 Blood Blood Culture - Preliminary NO GROWTH AFTER 48 HOURS Resulted 04/03/19 16:30 Blood Blood Culture - Preliminary NO GROWTH AFTER 48 HOURS Resulted 04/03/19 20:00 Nasal Nares MRSA Culture - Final Staphylococcus Aureus - Mrsa Complete 04/03/19 17:30 Urine,Clean Catch Urine Culture - Preliminary Resulted 04/03/19 20:00 Rectum VRE Culture - Final NO VANCOMYCIN RESISTANT ENTEROCOCCUS ... Complete 04/03/19 20:00 Rectum - Final NO CARBAPENEM-RESISTANT ENTEROBACTERI... Complete Critical Care - Objective Last 24 Hour Vital Signs Date Time Temp Pulse Resp B/P (MAP) Pulse Ox O2 Delivery O2 Flow Rate FiO2 04/09/19 10:10 61 107/40 04/09/19 08:00 97.8 61 18 107/40 (62) 96 04/09/19 04:00 98.3 55 18 108/48 (68) 97 04/09/19 04:00 55 04/09/19 00:00 57 04/09/19 00:00 97.7 57 18 122/60 (80) 93 04/08/19 21:00 Room Air 04/08/19 20:00 57 04/08/19 20:00 98.4 57 18 119/70 (86) 97 04/08/19 16:00 Room Air 04/08/19 16:00 98.0 67 20 138/77 (97) 92 04/08/19 15:51 64 Critical Care - Subjective ROS Limited/Unobtainable: No Tube Feeding Amount: 50 I&O: Intake and Output 04/08/19 04/09/19 19:00 07:00 Intake Total 750 ml Output Total 1100 ml 500 ml Balance -350 ml -500 ml Intake Free Water 150 ml IV Total 450 ml Tube Feeding 150 ml Output Urine Total 1100 ml 500 ml # Bowel Movements 1 1 Mane Zhang MD Apr 09, 2019 12:21
--- NOTE | 2019-04-09 14:05 | NUR ---
DRY KILN LOADEREDI DEVELOPER SI: SEPSIS,FEVER T. 97.5 HR 57 RR 20 B/P 107/40 RA 98% AST 109 BUN 25 IS: DIFLUCAN PO IVF NS @ 75ML/HR ZYPREXA PO NORVASC PO TELE STATUS
--- NOTE | 2019-04-09 15:43 | Surgery Progress Note ---
Surgery Progress Note Subjective Procedure Performed left subclavian central venous catheter insertion Additional Comments no acute events stable comfortable Objective Last 24 Hour Vital Signs Date Time Temp Pulse Resp B/P (MAP) Pulse Ox O2 Delivery O2 Flow Rate FiO2 04/09/19 12:00 57 04/09/19 12:00 97.5 55 20 119/69 (86) 97 04/09/19 10:10 61 107/40 04/09/19 09:00 Room Air 04/09/19 08:00 97.8 61 18 107/40 (62) 96 04/09/19 08:00 56 04/09/19 04:00 98.3 55 18 108/48 (68) 97 04/09/19 04:00 55 04/09/19 00:00 57 04/09/19 00:00 97.7 57 18 122/60 (80) 93 04/08/19 21:00 Room Air 04/08/19 20:00 57 04/08/19 20:00 98.4 57 18 119/70 (86) 97 04/08/19 16:00 Room Air 04/08/19 16:00 98.0 67 20 138/77 (97) 92 04/08/19 15:51 64 I&O Intake and Output 04/08/19 04/09/19 19:00 07:00 Intake Total 750 ml Output Total 1100 ml 500 ml Balance -350 ml -500 ml Intake Free Water 150 ml IV Total 450 ml Tube Feeding 150 ml Output Urine Total 1100 ml 500 ml # Bowel Movements 1 1 Dressing: dry Wound: clean Cardiovascular: RSR Respiratory: clear Abdomen: soft, present bowel sounds Extremities: no cyanosis Laboratory Tests Test 04/09/19 05:15 White Blood Count 8.1 K/UL (4.8-10.8) Red Blood Count 3.11 M/UL (4.20-5.40) L Hemoglobin 9.1 G/DL (12.0-16.0) L Hematocrit 28.3 % (37.0-47.0) L Mean Corpuscular Volume 91 FL (80-99) Mean Corpuscular Hemoglobin 29.5 PG (27.0-31.0) Mean Corpuscular Hemoglobin Concent 32.4 G/DL (32.0-36.0) Red Cell Distribution Width 17.8 % (11.6-14.8) H Platelet Count 106 K/UL (150-450) L Mean Platelet Volume 9.0 FL (6.5-10.1) Neutrophils (%) (Auto) 49.3 % (45.0-75.0) Lymphocytes (%) (Auto) 42.3 % (20.0-45.0) Monocytes (%) (Auto) 5.5 % (1.0-10.0) Eosinophils (%) (Auto) 1.5 % (0.0-3.0) Basophils (%) (Auto) 1.3 % (0.0-2.0) Sodium Level 139 MMOL/L (136-145) Potassium Level 4.2 MMOL/L (3.5-5.1) Chloride Level 108 MMOL/L (98-107) H Carbon Dioxide Level 27 MMOL/L (21-32) Anion Gap 4 mmol/L (5-15) L Blood Urea Nitrogen 25 mg/dL (7-18) H Creatinine 0.8 MG/DL (0.55-1.30) Estimat Glomerular Filtration Rate mL/min (>60) Glucose Level 112 MG/DL (74-106) H Calcium Level 8.6 MG/DL (8.5-10.1) Total Bilirubin 0.3 MG/DL (0.2-1.0) Aspartate Amino Transf (AST/SGOT) 26 U/L (15-37) Alanine Aminotransferase (ALT/SGPT) 109 U/L (12-78) H Alkaline Phosphatase 44 U/L (46-116) L Total Protein 7.6 G/DL (6.4-8.2) Albumin 1.8 G/DL (3.4-5.0) L Globulin 5.8 g/dL Albumin/Globulin Ratio 0.3 (1.0-2.7) L Plan Problems: (1) Abnormal LFTs Assessment & Plan: likely related to hypotension and sepsis will trend Echo ordered and results noted. (2) Septic shock Assessment & Plan: 79F in septic shock, hypotensive, on pressors, leukocytosis , lactic acidosis unable to obtain peripheral line has IO but not safe in elderly in her condition needs central venous access. see note IV abx labs improving exam stable iv fluids will follow with recs (3) Decubitus skin ulcer Assessment & Plan: Pt presented on admission with contractures and multiple pressure injuries. Non-Blanchable erythema without induration or fluctuance noted to R scapula (L) 4cm x (W)3.2cm. Two partial thickness pressure injuries noted to R thoracic area-Proximal wound is a partial thickness wound. Base of wound is moist and viable with surrounding non-blanching erythema without induration/fluctuance (L)2.5cm x (W) 3cm. Inferior wound in close proximity to above wound -Base of wound is moist and viable with surrounding non-Blanching erythema without induration/ fluctuance (L)3.5cm x (W)2cm. DTPI noted to L trochanter. Base of wound is purple with surrounding maroon borders. Base of wound is indurated. Periwound without erythema or induration.(L )4.3cm x (W)4.2cm. DTPI noted to R trochanter.Base of wound is purple with surrounding maroon discoloration. Base of wound is indurated. Non-blanchable erythema without fluctuance periwound. (L)7.3cm x (W)7.2cm. DTPI noted to sacrum. Base of wound is indurated- purple with maroon areas. Non- blanching erythema without fluctuance or induration periwound. DTPI that is partially opened along borders distal /lateral R foot.Base of wound is fluctuant and maroon in colour .No exudate noted. (L)3cm x (W)2.5cm. Periwound is pink and blanchable. Bilat heels and malleoli each feet are pink and blanchable. No other areas of concerns noted. Tx.Plan: Apply Cavilon Skin Barrier Molt to R scapula. Cover with Optifoam drsg. Change every 7 days and prn. Apply Cavilon Skin barrier spray to R and L Trochanters. Apply Triad paste. Cover each site with Optifoam drsg. Change every 3 days and prn. Apply Cavilon Skin Barrier Molt to Sacrum then apply Triad. Cover with Optifoam drsg. Change every 3 days and PRN. Apply Cavilon Skin Barrier to distal/lateral R foot. Cover with Optifoam drsg. Change every 3 days and prn. Apply Triad Paste to wounds R thoracic (2 sites). Cover with Optifoam drsg. change every 3 days and prn APM/LEONARD mattress overlay. Reposition at least every 2hours or as tolerated. Place pillow between knees. Off-load heels with pillow. Alistair Nieves Apr 09, 2019 15:43
[2019-04-09 16:00] VITALS: BP 113/44
--- NOTE | 2019-04-09 19:45 | NUR ---
NURSE NOTES: Received report from JUNIOR DUBON. Patient in bed asleep showing no signs of acute distress. AOx1. Respiration even and non labored on room air. No sob noted. PICC on left subclavian 3 lumen running 0.45NS @ 75cc/hr patent and intact. Bryant patent, intact, and draining, clear yellow urine, no odor noted. GT patent and intact on Jevity 1.2@50ml/hr. Aspiration precaution observed. Wound dressing intact, Bed in lowest position, wheels locked and alarm on. Call light within reach. All needs attended and met. Will continue plan of care.
[2019-04-09 20:00] VITALS: BP 115/70
[2019-04-09] MEDS: Dyna-Hex 2% Top Sol 2oz TOPIC SCH (20:26)
[2019-04-10] VITALS: BP 112/48
[2019-04-10 04:00] VITALS: BP 102/47
--- NOTE | 2019-04-10 07:24 | NUR ---
HAND-OFF: Report given to JUNIOR Ruelas,.
--- NOTE | 2019-04-10 08:00 | NUR ---
NURSE NOTES: Received report from JUNIOR Parker. Patient aox1 with calm affect. VSS. Breathing easily on RA. NSB on tele. Patient lying on R side with SCDs functioning. Bryant in place draing clear yellow urine. Bed locked in lowest position with call ruiz inreach. Jevity running via PEG tube per MD order. IVF running per MD order to CDI triple lumen.
[2019-04-10 08:05] VITALS: BP 114/50
[2019-04-10] MEDS: Milk of Magnesia 30ml Ud GT SCH (09:31)
[2019-04-10] MEDS: Fluconazole 100mg tab GT SCH (09:31)
[2019-04-10] MEDS: Docusate 100mg/10ml Liq GT SCH ×2 (09:31→18:07)
[2019-04-10] MEDS: Ascorbic Acid 500mg tab GT SCH (09:32)
[2019-04-10] MEDS: Brimonidine 0.2% Opth Sol BOTH EYES SCH ×3 (09:32→18:07)
[2019-04-10] MEDS: Multivitamin w/Minerals tab ORAL SCH (09:32)
[2019-04-10 12:00] VITALS: BP 132/58
--- NOTE | 2019-04-10 12:08 | Surgery Progress Note ---
Surgery Progress Note Subjective Procedure Performed left subclavian central venous catheter insertion Symptoms: improved, pain absent, tolerating diet, passing flatus Objective Last 24 Hour Vital Signs Date Time Temp Pulse Resp B/P (MAP) Pulse Ox O2 Delivery O2 Flow Rate FiO2 04/10/19 09:38 59 114/50 04/10/19 09:00 Room Air 04/10/19 08:05 98.4 59 18 114/50 (71) 100 04/10/19 08:00 57 04/10/19 04:00 58 04/10/19 04:00 98.0 59 18 102/47 (65) 96 04/10/19 00:00 97.4 62 18 112/48 (69) 98 04/10/19 00:00 59 04/09/19 21:00 Room Air 04/09/19 20:00 98.0 62 18 115/70 (85) 99 04/09/19 20:00 58 04/09/19 16:52 60 04/09/19 16:00 97.2 60 18 113/44 (67) 96 I&O Intake and Output 04/09/19 04/10/19 19:00 07:00 Output Total 1400 ml 1200 ml Balance -1400 ml -1200 ml Output Urine Total 1400 ml 1200 ml # Bowel Movements 1 Dressing: dry Wound: clean, dry Cardiovascular: RSR Respiratory: clear Abdomen: soft, present bowel sounds, non-distended Extremities: no tenderness, no cyanosis Plan Problems: (1) Abnormal LFTs Assessment & Plan: likely related to hypotension and sepsis will trend Echo ordered and results noted. (2) Septic shock Assessment & Plan: 79F in septic shock, hypotensive, on pressors, leukocytosis , lactic acidosis unable to obtain peripheral line has IO but not safe in elderly in her condition needs central venous access. see note IV abx labs improving exam stable iv fluids diet thank you will follow with recs (3) Decubitus skin ulcer Assessment & Plan: Pt presented on admission with contractures and multiple pressure injuries. Non-Blanchable erythema without induration or fluctuance noted to R scapula (L) 4cm x (W)3.2cm. Two partial thickness pressure injuries noted to R thoracic area-Proximal wound is a partial thickness wound. Base of wound is moist and viable with surrounding non-blanching erythema without induration/fluctuance (L)2.5cm x (W) 3cm. Inferior wound in close proximity to above wound -Base of wound is moist and viable with surrounding non-Blanching erythema without induration/ fluctuance (L)3.5cm x (W)2cm. DTPI noted to L trochanter. Base of wound is purple with surrounding maroon borders. Base of wound is indurated. Periwound without erythema or induration.(L )4.3cm x (W)4.2cm. DTPI noted to R trochanter.Base of wound is purple with surrounding maroon discoloration. Base of wound is indurated. Non-blanchable erythema without fluctuance periwound. (L)7.3cm x (W)7.2cm. DTPI noted to sacrum. Base of wound is indurated- purple with maroon areas. Non- blanching erythema without fluctuance or induration periwound. DTPI that is partially opened along borders distal /lateral R foot.Base of wound is fluctuant and maroon in colour .No exudate noted. (L)3cm x (W)2.5cm. Periwound is pink and blanchable. Bilat heels and malleoli each feet are pink and blanchable. No other areas of concerns noted. Tx.Plan: Apply Cavilon Skin Barrier [place] to R scapula. Cover with Optifoam drsg. Change every 7 days and prn. Apply Cavilon Skin barrier spray to R and L Trochanters. Apply Triad paste. Cover each site with Optifoam drsg. Change every 3 days and prn. Apply Cavilon Skin Barrier [place] to Sacrum then apply Triad. Cover with Optifoam drsg. Change every 3 days and PRN. Apply Cavilon Skin Barrier to distal/lateral R foot. Cover with Optifoam drsg. Change every 3 days and prn. Apply Triad Paste to wounds R thoracic (2 sites). Cover with Optifoam drsg. change every 3 days and prn APM/LEONARD mattress overlay. Reposition at least every 2hours or as tolerated. Place pillow between knees. Off-load heels with pillow. Alistair Nieves Apr 10, 2019 12:08
--- NOTE | 2019-04-10 14:48 | Pulmonolgy Critical Care Note ---
Critical Care - Asmt/Plan Assessment/Plan: Pulmonary CCM Progress Note Assessment/Plan IMPRESSION: Fever, likely sepsis, severe protein-calorie malnutrition, contractures, acute on chronic renal failure, hypernatremia, leukocytosis, evidence of anemia, history of hypertension, bedbound state, dementia. toxic metabolic encephalopathy No new complaints PLAN nutrition as tolerated; elevate head IV antibiotics wound care monitor protein levels close follow up remains critical but improved IV hydration for now renal parameters improved d/w consultants and ancillary staff medications/laboratory data/nursing notes/ICU care reviewed in detail note reviewed and edited care discussed with RN and RT ICU time spent 38 minutes Critical Care - Subjective Interval Events: tolerating feeds ROS Limited/Unobtainable: Yes Condition: critical EKG Rhythm: Sinus Rhythm Residuals: minimal Tube Feeding Tolerated: yes Labs noted Test 04/03/19 16:30 04/03/19 17:30 04/03/19 17:55 04/03/19 18:01 White Blood Count 17.5 K/UL (4.8-10.8) Red Blood Count 4.72 M/UL (4.20-5.40) Hemoglobin 12.9 G/DL (12.0-16.0) Hematocrit 42.3 % (37.0-47.0) Mean Corpuscular Volume 90 FL (80-99) Mean Corpuscular Hemoglobin 27.4 PG (27.0-31.0) Mean Corpuscular Hemoglobin Concent 30.5 G/DL (32.0-36.0) Red Cell Distribution Width 15.6 % (11.6-14.8) Platelet Count 181 K/UL (150-450) Mean Platelet Volume 10.9 FL (6.5-10.1) Neutrophils (%) (Auto) 63.8 % (45.0-75.0) Lymphocytes (%) (Auto) 32.9 % (20.0-45.0) Monocytes (%) (Auto) 2.6 % (1.0-10.0) Eosinophils (%) (Auto) 0.0 % (0.0-3.0) Basophils (%) (Auto) 0.7 % (0.0-2.0) Sodium Level 151 MMOL/L (136-145) Potassium Level 4.4 MMOL/L (3.5-5.1) Chloride Level 111 MMOL/L (98-107) Carbon Dioxide Level 28 MMOL/L (21-32) Anion Gap 12 mmol/L (5-15) Blood Urea Nitrogen 99 mg/dL (7-18) Creatinine 2.4 MG/DL (0.55-1.30) Estimat Glomerular Filtration Rate mL/min (>60) Glucose Level 267 MG/DL (74-106) Lactic Acid Level 3.80 mmol/L (0.4-2.0) 3.00 mmol/L (0.66-2.22) Calcium Level 9.4 MG/DL (8.5-10.1) Total Bilirubin 0.5 MG/DL (0.2-1.0) Aspartate Amino Transf (AST/SGOT) 212 U/L (15-37) Alanine Aminotransferase (ALT/SGPT) 273 U/L (12-78) Alkaline Phosphatase 42 U/L (46-116) Total Creatine Kinase 438 U/L (26-308) Creatine Kinase MB 3.5 NG/ML (0.0-3.6) Creatine Kinase MB Relative Index 0.7 Troponin I 0.088 ng/mL (0.000-0.056) Pro-B-Type Natriuretic Peptide 2639 pg/mL (0-125) Total Protein 10.6 G/DL (6.4-8.2) Albumin 2.4 G/DL (3.4-5.0) Globulin 8.2 g/dL Albumin/Globulin Ratio 0.3 (1.0-2.7) Urine Color Yellow Urine Appearance Slightly cloudy Urine pH 5 (4.5-8.0) Urine Specific [place] 1.030 (1.005-1.035) Urine Protein 3+ (NEGATIVE) Urine Glucose (UA) Negative (NEGATIVE) Urine Ketones Negative (NEGATIVE) Urine Blood 4+ (NEGATIVE) Urine Nitrite Negative (NEGATIVE) Urine Bilirubin Negative (NEGATIVE) Urine Urobilinogen Normal MG/DL (0.0-1.0) Urine Leukocyte Esterase 3+ (NEGATIVE) Urine RBC 10-15 /HPF (0 - 2) Urine WBC 20-30 /HPF (0 - 2) Urine Squamous Epithelial Cells Moderate /LPF (NONE/OCC) Urine Bacteria Many /HPF (NONE) Urine Yeast Many /HPF (NONE) Arterial Blood pH 7.448 (7.350-7.450) Arterial Blood Partial Pressure CO2 30.0 mmHg (35.0-45.0) Arterial Blood Partial Pressure O2 141.8 mmHg (75.0-100.0) Arterial Blood HCO3 20.3 mmol/L (22.0-26.0) Arterial Blood Oxygen Saturation 97.9 % (95-100) Arterial Blood Base Excess -2.9 (-2-2) Jonah Test Positive Test 04/04/19 03:10 04/04/19 05:00 04/04/19 12:00 04/04/19 18:10 Lactic Acid Level 1.40 mmol/L (0.4-2.0) 1.80 mmol/L (0.4-2.0) White Blood Count 18.8 K/UL (4.8-10.8) Red Blood Count 3.06 M/UL (4.20-5.40) Hemoglobin 8.6 G/DL (12.0-16.0) Hematocrit 27.4 % (37.0-47.0) Mean Corpuscular Volume 90 FL (80-99) Mean Corpuscular Hemoglobin 28.1 PG (27.0-31.0) Mean Corpuscular Hemoglobin Concent 31.4 G/DL (32.0-36.0) Red Cell Distribution Width 16.2 % (11.6-14.8) Platelet Count 107 K/UL (150-450) Mean Platelet Volume 10.3 FL (6.5-10.1) Neutrophils (%) (Auto) % (45.0-75.0) Lymphocytes (%) (Auto) % (20.0-45.0) Monocytes (%) (Auto) % (1.0-10.0) Eosinophils (%) (Auto) % (0.0-3.0) Basophils (%) (Auto) % (0.0-2.0) Differential Total Cells Counted 100 Neutrophils % (Manual) 37 % (45-75) Lymphocytes % (Manual) 54 % (20-45) Monocytes % (Manual) 9 % (1-10) Eosinophils % (Manual) 0 % (0-3) Basophils % (Manual) 0 % (0-2) Band Neutrophils 0 % (0-8) Platelet Estimate Decreased Platelet Morphology Normal Hypochromasia 1+ Anisocytosis 1+ Sodium Level 156 MMOL/L (136-145) Potassium Level 2.9 MMOL/L (3.5-5.1) Chloride Level 123 MMOL/L (98-107) Carbon Dioxide Level 23 MMOL/L (21-32) Anion Gap 10 mmol/L (5-15) Blood Urea Nitrogen 79 mg/dL (7-18) Creatinine 1.5 MG/DL (0.55-1.30) Estimat Glomerular Filtration Rate mL/min (>60) Glucose Level 145 MG/DL (74-106) Calcium Level 7.6 MG/DL (8.5-10.1) Random Vancomycin Level 2.7 ug/mL Stool Occult Blood Negative (NEGATIVE) Test 04/05/19 04:00 White Blood Count 14.0 K/UL (4.8-10.8) Red Blood Count 3.07 M/UL (4.20-5.40) Hemoglobin 8.5 G/DL (12.0-16.0) Hematocrit 27.2 % (37.0-47.0) Mean Corpuscular Volume 89 FL (80-99) Mean Corpuscular Hemoglobin 27.7 PG (27.0-31.0) Mean Corpuscular Hemoglobin Concent 31.3 G/DL (32.0-36.0) Red Cell Distribution Width 15.9 % (11.6-14.8) Platelet Count 75 K/UL (150-450) Mean Platelet Volume 10.7 FL (6.5-10.1) Neutrophils (%) (Auto) % (45.0-75.0) Lymphocytes (%) (Auto) % (20.0-45.0) Monocytes (%) (Auto) % (1.0-10.0) Eosinophils (%) (Auto) % (0.0-3.0) Basophils (%) (Auto) % (0.0-2.0) Sodium Level 141 MMOL/L (136-145) Potassium Level 4.5 MMOL/L (3.5-5.1) Chloride Level 112 MMOL/L (98-107) Carbon Dioxide Level 24 MMOL/L (21-32) Anion Gap 5 mmol/L (5-15) Blood Urea Nitrogen 38 mg/dL (7-18) Creatinine 0.9 MG/DL (0.55-1.30) Estimat Glomerular Filtration Rate mL/min (>60) Glucose Level 113 MG/DL (74-106) Calcium Level 7.8 MG/DL (8.5-10.1) Magnesium Level 2.1 MG/DL (1.8-2.4) Random Vancomycin Level 6.0 ug/mL Objective: GENERAL: Chronically ill-appearing female, currently more alert HEENT: Negative. NECK: Supple. The patient is significantly contracted at this time. LUNGS: improved rhonchi. Moderate air entry. no wheeze CARDIAC: S1 and S2. The patient with regular rate and rhythm without murmurs, rubs, gallops. ABDOMEN: Soft, nontender. G-tube in place. no distention EXTREMITIES: No cyanosis, clubbing, or edema. Significant contractures. NEUROLOGICALLY: contracted, difficult to fully assess, more alert SKIN: Noted. Micro: Microbiology Date/Time Source Procedure Growth Status 04/03/19 16:30 Blood Blood Culture - Preliminary NO GROWTH AFTER 48 HOURS Resulted 04/03/19 16:30 Blood Blood Culture - Preliminary NO GROWTH AFTER 48 HOURS Resulted 04/03/19 20:00 Nasal Nares MRSA Culture - Final Staphylococcus Aureus - Mrsa Complete 04/03/19 17:30 Urine,Clean Catch Urine Culture - Preliminary Resulted 04/03/19 20:00 Rectum VRE Culture - Final NO VANCOMYCIN RESISTANT ENTEROCOCCUS ... Complete 04/03/19 20:00 Rectum - Final NO CARBAPENEM-RESISTANT ENTEROBACTERI... Complete Critical Care - Objective Last 24 Hour Vital Signs Date Time Temp Pulse Resp B/P (MAP) Pulse Ox O2 Delivery O2 Flow Rate FiO2 04/10/19 12:00 97.8 64 18 132/58 (82) 99 04/10/19 12:00 63 04/10/19 09:38 59 114/50 04/10/19 09:00 Room Air 04/10/19 08:05 98.4 59 18 114/50 (71) 100 04/10/19 08:00 57 04/10/19 04:00 58 04/10/19 04:00 98.0 59 18 102/47 (65) 96 04/10/19 00:00 97.4 62 18 112/48 (69) 98 04/10/19 00:00 59 04/09/19 21:00 Room Air 04/09/19 20:00 98.0 62 18 115/70 (85) 99 04/09/19 20:00 58 04/09/19 16:52 60 04/09/19 16:00 97.2 60 18 113/44 (06) 96 Critical Care - Subjective ROS Limited/Unobtainable: No Tube Feeding Amount: 50 I&O: Intake and Output 04/09/19 04/10/19 19:00 07:00 Output Total 1400 ml 1200 ml Balance -1400 ml -1200 ml Output Urine Total 1400 ml 1200 ml # Bowel Movements 1 Mane Zhang MD Apr 10, 2019 14:48
[2019-04-10 16:00] VITALS: BP 116/50
--- NOTE | 2019-04-10 17:45 | NUR ---
NURSE NOTES: [facility] Bath given to patient with triple lumen subclavian line. Wound care done, old dressings removed, pictures taken, barrier film applied and new optifoam applied over sacral DTI, L/R trochanters DTI, and other bony prominences for protection. Wound photos uploaded to patient chart.
--- NOTE | 2019-04-10 19:30 | NUR ---
NURSE NOTES: Received report from JUNIOR Ruelas. Patient laying on the bed on her left side. Patient AAOx1, with confusion. Patient breathing unlabored and evenly without distress, discomfort, or sob on room air. Patient on continuous cardiac monitoring per protocol. No signs of pain noted at this time. Central line on the left subclavian noted with intact dressing. One lumen running fluid as ordered and other two lumens are patent, flushing well without resistance. Bryant patent draining yellow urine. Gtube patent running jevity at 50 cc/hr. No residual, patient tolerating feeding well at this time. Bed placed at the lowest with alarm, brake, and side rails up x 2 for safety measures. Call light placed within reach. Will continue to monitor and provide care as ordered.
[2019-04-10 20:00] VITALS: BP 110/52
[2019-04-10] MEDS: Dyna-Hex 2% Top Sol 2oz TOPIC SCH (22:22)
[2019-04-11] VITALS: BP 103/63
[2019-04-11 04:00] VITALS: BP 121/50
--- NOTE | 2019-04-11 08:00 | NUR ---
Nurse Note: Patient aox1 with calm affect. VSS. Breathing easily on RA. NSB on tele. Patient lying on L side with SCDs functioning. Bryant in place draing clear yellow urine. Bed locked in lowest position with call ruiz inreach. Jevity running via PEG tube per MD order. IVF running per MD order to CDI triple lumen.
[2019-04-11] MEDS: Milk of Magnesia 30ml Ud GT SCH (09:14)
[2019-04-11] MEDS: Multivitamin w/Minerals tab ORAL SCH (09:14)
[2019-04-11] MEDS: Fluconazole 100mg tab GT SCH (09:14)
[2019-04-11] MEDS: Ascorbic Acid 500mg tab GT SCH (09:14)
[2019-04-11] MEDS: Brimonidine 0.2% Opth Sol BOTH EYES SCH ×3 (09:15→17:47)
[2019-04-11] MEDS: Docusate 100mg/10ml Liq GT SCH ×2 (09:17→17:46)
--- NOTE | 2019-04-11 11:30 | Infectious Diseases Prog Note ---
Assessment/Plan Assessment/Plan IMPRESSION: Sepsis with septic shock. resolving Urinary tract infection. Fungal Hydronephrosis Bilateral renal stone Dementia Hypernatremia, corrected hypokalemia, corrected Acute renal failure, Methicillin-resistant Staphylococcus aureus colonization. Status post gastrostomy tube placement. RECOMMENDATIONS: 1. Continue Fluconazole X 2 days Subjective ROS Limited/Unobtainable: Yes Constitutional: Denies: fever Allergies: Coded Allergies: MORPHINE (Verified Allergy, Unknown, 07/18/09) Objective Vital Signs Last 24 Hour Vital Signs Date Time Temp Pulse Resp B/P (MAP) Pulse Ox O2 Delivery O2 Flow Rate FiO2 04/11/19 09:14 61 121/50 04/11/19 04:00 98.1 61 18 121/50 (73) 100 04/11/19 04:00 61 04/11/19 00:00 61 04/11/19 00:00 97.6 62 16 103/63 (76) 96 04/10/19 21:00 Room Air 04/10/19 20:00 97.6 55 16 110/52 (71) 95 04/10/19 20:00 54 04/10/19 16:00 97.5 57 18 116/50 (72) 100 04/10/19 16:00 50 04/10/19 12:00 97.8 64 18 132/58 (82) 99 04/10/19 12:00 63 Height (Feet): 5 Height (Inches): 4.00 Weight (Pounds): 97 General Appearance: no acute distress HEENT: mucous membranes moist Respiratory/Chest: lungs clear Cardiovascular: normal rate Abdomen: soft, non tender, other - GT feeding Extremities: no edema Neurologic/Psychiatric: alert, disoriented Musculoskeletal: atrophy Current Medications Medications (Trade) Dose Ordered Sig/Marcos Route PRN Reason Start Time Stop Time Status Last Admin Dose Admin Acetaminophen (Tylenol) 650 mg Q4H PRN GT Mild Pain/Temp > 100.5 04/08/19 13:30 05/04/19 17:29 Amlodipine Besylate (Norvasc) 5 mg DAILY GT 04/09/19 09:00 05/04/19 08:59 04/11/19 09:14 Ascorbic Acid (Vitamin C) 500 mg DAILY GT 04/09/19 09:00 05/04/19 08:59 04/11/19 09:14 Bisacodyl (Dulcolax) 10 mg DAILYPRN PRN RECTAL Constipation 04/08/19 13:30 05/07/19 13:29 Brimonidine Tartrate (Alphagan) 1 drop TID BOTH EYES 04/08/19 18:00 05/04/19 08:59 04/11/19 09:15 Chlorhexidine Gluconate (Kylee-Hex 2%) 1 applic DAILY@2000 TOPIC 04/08/19 20:00 05/05/19 19:59 04/10/19 22:22 Docusate Sodium (Colace) 100 mg BID GT 04/08/19 18:00 05/04/19 08:59 04/11/19 09:17 Fluconazole (Diflucan) 100 mg DAILY GT 04/09/19 09:00 04/14/19 10:44 04/11/19 09:14 Lansoprazole (Prevacid) 30 mg DAILY GT 04/09/19 09:00 05/08/19 08:59 04/11/19 09:14 Lorazepam (Ativan) 1 mg Q4H PRN GT For Anxiety 04/08/19 13:30 04/14/19 13:29 Magnesium Hydroxide (Mom) 30 ml DAILY GT 04/09/19 09:00 05/04/19 08:59 04/11/19 09:14 Multivitamins Therapeutic (Therapeutic Multivitamin) 1 ea DAILY ORAL 04/09/19 09:00 05/04/19 08:59 04/11/19 09:14 Olanzapine (ZyPREXA) 5 mg TID GT 04/08/19 18:00 05/04/19 08:59 04/11/19 09:14 Sodium Chloride 1,000 ml @ 75 mls/hr [id number] IV 04/08/19 13:30 05/07/19 11:59 04/11/19 08:10 Zolpidem Tartrate (Ambien) 5 mg HSPRN PRN GT Insomnia 04/08/19 21:00 04/14/19 20:59 Jacobo Seals MD Apr 11, 2019 11:30
[2019-04-11 12:23] VITALS: BP 135/90
--- NOTE | 2019-04-11 14:27 | Pulmonolgy Critical Care Note ---
Critical Care - Asmt/Plan Assessment/Plan: Pulmonary CCM Progress Note Assessment/Plan IMPRESSION: Fever, likely sepsis, severe protein-calorie malnutrition, contractures, acute on chronic renal failure, hypernatremia, leukocytosis, evidence of anemia, history of hypertension, bedbound state, dementia. toxic metabolic encephalopathy No new complaints PLAN nutrition as tolerated; elevate head IV antibiotics wound care monitor protein levels close follow up remains critical but improved IV hydration for now renal parameters improved d/w consultants and ancillary staff medications/laboratory data/nursing notes/ICU care reviewed in detail note reviewed and edited care discussed with RN and RT ICU time spent 38 minutes Interval Events: tolerating feeds ROS Limited/Unobtainable: Yes Condition: critical EKG Rhythm: Sinus Rhythm Residuals: minimal Tube Feeding Tolerated: yes Labs noted Objective: GENERAL: Chronically ill-appearing female, currently more alert HEENT: Negative. NECK: Supple. The patient is significantly contracted at this time. LUNGS: improved rhonchi. Moderate air entry. no wheeze CARDIAC: S1 and S2. The patient with regular rate and rhythm without murmurs, rubs, gallops. ABDOMEN: Soft, nontender. G-tube in place. no distention EXTREMITIES: No cyanosis, clubbing, or edema. Significant contractures. NEUROLOGICALLY: contracted, difficult to fully assess, more alert SKIN: Noted. Micro: Microbiology Date/Time Source Procedure Growth Status 04/03/19 16:30 Blood Blood Culture - Preliminary NO GROWTH AFTER 48 HOURS Resulted 04/03/19 16:30 Blood Blood Culture - Preliminary NO GROWTH AFTER 48 HOURS Resulted 04/03/19 20:00 Nasal Nares MRSA Culture - Final Staphylococcus Aureus - Mrsa Complete 04/03/19 17:30 Urine,Clean Catch Urine Culture - Preliminary Resulted 04/03/19 20:00 Rectum VRE Culture - Final NO VANCOMYCIN RESISTANT ENTEROCOCCUS ... Complete 04/03/19 20:00 Rectum - Final NO CARBAPENEM-RESISTANT ENTEROBACTERI... Complete Critical Care - Objective Last 24 Hour Vital Signs Date Time Temp Pulse Resp B/P (MAP) Pulse Ox O2 Delivery O2 Flow Rate FiO2 04/11/19 12:23 98.6 68 18 135/90 (105) 98 04/11/19 12:00 61 04/11/19 09:14 61 121/50 04/11/19 09:00 Room Air 04/11/19 08:00 65 04/11/19 04:00 98.1 61 18 121/50 (73) 100 04/11/19 04:00 61 04/11/19 00:00 61 04/11/19 00:00 97.6 62 16 103/63 (76) 96 04/10/19 21:00 Room Air 04/10/19 20:00 97.6 55 16 110/52 (71) 95 04/10/19 20:00 54 04/10/19 16:00 97.5 57 18 116/50 (72) 100 04/10/19 16:00 50 Critical Care - Subjective ROS Limited/Unobtainable: No Condition: stable Tube Feeding Amount: 50 I&O: Intake and Output 04/10/19 04/11/19 19:00 07:00 Intake Total 50 ml 550 ml Output Total 950 ml 1400 ml Balance -900 ml -850 ml Tube Feeding 50 ml 550 ml Output Urine Total 950 ml 1400 ml Mane Zhang MD Apr 11, 2019 14:27
[2019-04-11 16:36] VITALS: BP 132/65
--- NOTE | 2019-04-11 19:30 | NUR ---
NURSE NOTES: Received patient from [facility] and Martell RN. Patient in bed, on room air, no s/s of respiratory distress. On air mattress, foam dressings on bony prominences for prevention. Bilateral scds on. Bed in low position, locked, bed alarm on, call light within reach. 30ml of residual from G tube, patent and flushed, on Jevity 1.2 at 50ml/hr. Left subclavian central line (triple lumen) intact, dressing changed 04/05, intact, 1/2 NS infusing at 75ml/hr. Bryant catheter intact and patent with yellow output, no leakage.
[2019-04-11 20:00] VITALS: BP 101/57
--- NOTE | 2019-04-11 20:26 | Surgery Progress Note ---
Surgery Progress Note Subjective Procedure Performed left subclavian central venous catheter insertion Additional Comments late entry as patient seen earlier today. . no acute events. afebrile, HD stable , labs noted. Objective Last 24 Hour Vital Signs Date Time Temp Pulse Resp B/P (MAP) Pulse Ox O2 Delivery O2 Flow Rate FiO2 04/11/19 16:39 66 04/11/19 16:36 97.5 63 18 132/65 (87) 98 04/11/19 12:23 98.6 68 18 135/90 (105) 98 04/11/19 12:00 61 04/11/19 09:14 61 121/50 04/11/19 09:00 Room Air 04/11/19 08:00 65 04/11/19 04:00 98.1 61 18 121/50 (73) 100 04/11/19 04:00 61 04/11/19 00:00 61 04/11/19 00:00 97.6 62 16 103/63 (76) 96 04/10/19 21:00 Room Air I&O Intake and Output 04/10/19 04/11/19 19:00 07:00 Intake Total 50 ml 550 ml Output Total 950 ml 1400 ml Balance -900 ml -850 ml Tube Feeding 50 ml 550 ml Output Urine Total 950 ml 1400 ml Dressing: dry Wound: clean Cardiovascular: RSR Respiratory: clear Abdomen: soft, flat, non-tender, present bowel sounds Extremities: no edema, no tenderness, no cyanosis Laboratory Tests Test 04/11/19 11:30 Prealbumin Pending Zinc Level Pending Plan Problems: (1) Abnormal LFTs Assessment & Plan: likely related to hypotension and sepsis will trend Echo ordered and results noted. (2) Septic shock Assessment & Plan: 79F in septic shock, hypotensive, on pressors, leukocytosis , lactic acidosis unable to obtain peripheral line has IO but not safe in elderly in her condition needs central venous access. see note IV abx labs improving exam stable iv fluids diet thank you will follow with recs (3) Decubitus skin ulcer Assessment & Plan: Pt presented on admission with contractures and multiple pressure injuries. Non-Blanchable erythema without induration or fluctuance noted to R scapula (L) 4cm x (W)3.2cm. Two partial thickness pressure injuries noted to R thoracic area-Proximal wound is a partial thickness wound. Base of wound is moist and viable with surrounding non-blanching erythema without induration/fluctuance (L)2.5cm x (W) 3cm. Inferior wound in close proximity to above wound -Base of wound is moist and viable with surrounding non-Blanching erythema without induration/ fluctuance (L)3.5cm x (W)2cm. DTPI noted to L trochanter. Base of wound is purple with surrounding maroon borders. Base of wound is indurated. Periwound without erythema or induration.(L )4.3cm x (W)4.2cm. DTPI noted to R trochanter.Base of wound is purple with surrounding maroon discoloration. Base of wound is indurated. Non-blanchable erythema without fluctuance periwound. (L)7.3cm x (W)7.2cm. DTPI noted to sacrum. Base of wound is indurated- purple with maroon areas. Non- blanching erythema without fluctuance or induration periwound. DTPI that is partially opened along borders distal /lateral R foot.Base of wound is fluctuant and maroon in colour .No exudate noted. (L)3cm x (W)2.5cm. Periwound is pink and blanchable. Bilat heels and malleoli each feet are pink and blanchable. No other areas of concerns noted. Tx.Plan: Apply Cavilon Skin Barrier [place] to R scapula. Cover with Optifoam drsg. Change every 7 days and prn. Apply Cavilon Skin barrier spray to R and L Trochanters. Apply Triad paste. Cover each site with Optifoam drsg. Change every 3 days and prn. Apply Cavilon Skin Barrier [place] to Sacrum then apply Triad. Cover with Optifoam drsg. Change every 3 days and PRN. Apply Cavilon Skin Barrier to distal/lateral R foot. Cover with Optifoam drsg. Change every 3 days and prn. Apply Triad Paste to wounds R thoracic (2 sites). Cover with Optifoam drsg. change every 3 days and prn APM/LEONARD mattress overlay. Reposition at least every 2hours or as tolerated. Place pillow between knees. Off-load heels with pillow. Alistair Nieves Apr 11, 2019 20:26
[2019-04-11] MEDS: Dyna-Hex 2% Top Sol 2oz TOPIC SCH (20:54)
[2019-04-12] VITALS: BP 118/58
--- NOTE | 2019-04-12 02:12 | NUR ---
NURSE NOTES: Chlorohexidine bath was given this shift. Dressings on bony prominences still intact. Patient is quiet and calm at this time.
[2019-04-12 04:00] VITALS: BP 121/50
--- NOTE | 2019-04-12 07:15 | NUR ---
HAND-OFF: Report given to Zackary PACHECO.
--- NOTE | 2019-04-12 07:17 | NUR ---
NURSE NOTES: Pt received from [facility] in stable condition with no cardiopulmonary distress noted. 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 GT noted running Jevity at 50cc/hr. F/C noted draining yellow urine. Skin alterations noted. Pt has a L subclavian central line. Bed is in lowest position with alarm on, side rails up x 2, call light within reach. SCDs noted on bilat lower extremities. Will continue to monitor.
[2019-04-12 08:00] VITALS: BP 104/50
--- NOTE | 2019-04-12 08:17 | Critical Care Progress Note ---
Assessment/Plan Assessment/Plan IMPRESSION: Fever, likely sepsis, severe protein-calorie malnutrition, contractures, acute on chronic renal failure, hypernatremia, leukocytosis, evidence of anemia, history of hypertension, bedbound state, dementia. toxic metabolic encephalopathy PLAN nutrition as tolerated; elevate head and monitor congestion IV antibiotics discontinued off pressors off load; wound care monitor protein levels and continue feeds close follow up for any change; labile dc to snf care noted impression, plan, and exam edited and reviewed in detail care discussed with information assurance analyst - Subjective Interval Events: events reviewed over the weekend near dc of flucon off antibiotics ROS Limited/Unobtainable: Yes Condition: stable EKG Rhythm: Sinus Rhythm Residuals: minimal Tube Feeding Tolerated: yes I&O: Intake and Output 04/11/19 04/12/19 19:00 07:00 Output Total 900 ml 1100 ml Balance -900 ml -1100 ml Output Urine Total 900 ml 1100 ml # Voids 3 # Bowel Movements 1 Critical Care - Objective Last 24 Hour Vital Signs Date Time Temp Pulse Resp B/P (MAP) Pulse Ox O2 Delivery O2 Flow Rate FiO2 04/12/19 08:00 97.9 61 22 104/50 (68) 98 04/12/19 04:00 98.5 60 18 121/50 (73) 96 04/12/19 03:27 60 04/12/19 00:00 98.1 62 18 118/58 (78) 99 04/11/19 23:36 62 04/11/19 21:00 Room Air 04/11/19 20:00 98.0 52 17 101/57 (72) 98 04/11/19 19:52 52 04/11/19 16:39 66 04/11/19 16:36 97.5 63 18 132/65 (87) 98 04/11/19 12:23 98.6 68 18 135/90 (105) 98 04/11/19 12:00 61 04/11/19 09:14 61 121/50 04/11/19 09:00 Room Air Labs: Labs Test 04/11/19 11:30 04/12/19 06:00 Objective: GENERAL: Chronically ill-appearing female, at baseline HEENT: Negative. NECK: Supple. The patient is significantly contracted at this time. LUNGS: improved rhonchi. Moderate air entry. no wheeze CARDIAC: S1 and S2. The patient with regular rate and rhythm without murmurs, rubs, gallops. ABDOMEN: Soft, nontender. G-tube in place. no distention EXTREMITIES: No cyanosis, clubbing, or edema. Significant contractures. NEUROLOGICALLY: contracted, at baseline loc SKIN: Noted. Ac Bernal MD Apr 12, 2019 08:17
[2019-04-12] MEDS: Milk of Magnesia 30ml Ud GT SCH (08:36)
[2019-04-12] MEDS: Docusate 100mg/10ml Liq GT SCH (08:36)
[2019-04-12] MEDS: Fluconazole 100mg tab GT SCH (08:36)
[2019-04-12] MEDS: Multivitamin w/Minerals tab ORAL SCH (08:36)
[2019-04-12] MEDS: Ascorbic Acid 500mg tab GT SCH (08:36)
[2019-04-12] MEDS: Brimonidine 0.2% Opth Sol BOTH EYES SCH ×2 (08:40→13:07)
--- NOTE | 2019-04-12 09:03 | NUR ---
*-* DISCHARGE PLANNING *-* PATIENT HAS BEEN REFERRED BACK TO: [facility] P:[phone] F:[phone]
--- NOTE | 2019-04-12 11:09 | Infectious Diseases Prog Note ---
Assessment/Plan Assessment/Plan antibiotics : fluconazole A 1. fungal UTI 2. septic shock resolved 3. renal failure improving 4. bilateral renal stones 5, dementia P 1. continue fluconazole 1 more day 2. will follow up cultures Subjective ROS Limited/Unobtainable: Yes Allergies: Coded Allergies: MORPHINE (Verified Allergy, Unknown, 07/18/09) Objective Vital Signs Last 24 Hour Vital Signs Date Time Temp Pulse Resp B/P (MAP) Pulse Ox O2 Delivery O2 Flow Rate FiO2 04/12/19 09:00 Room Air 04/12/19 08:36 61 104/50 04/12/19 08:00 97.9 61 22 104/50 (68) 98 04/12/19 08:00 56 04/12/19 04:00 98.5 60 18 121/50 (73) 96 04/12/19 03:27 60 04/12/19 00:00 98.1 62 18 118/58 (78) 99 04/11/19 23:36 62 04/11/19 21:00 Room Air 04/11/19 20:00 98.0 52 17 101/57 (72) 98 04/11/19 19:52 52 04/11/19 16:39 66 04/11/19 16:36 97.5 63 18 132/65 (87) 98 04/11/19 12:23 98.6 68 18 135/90 (105) 98 04/11/19 12:00 61 Height (Feet): 5 Height (Inches): 4.00 Weight (Pounds): 111 Respiratory/Chest: lungs clear Cardiovascular: normal rate, regular rhythm, no gallop/murmur Abdomen: soft, non tender, other - GT Extremities: no edema Laboratory Tests Test 04/11/19 11:30 04/12/19 06:00 Prealbumin Pending Zinc Level Pending Current Medications Medications (Trade) Dose Ordered Sig/Marcos Route PRN Reason Start Time Stop Time Status Last Admin Dose Admin Acetaminophen (Tylenol) 650 mg Q4H PRN GT Mild Pain/Temp > 100.5 04/08/19 13:30 05/04/19 17:29 Amlodipine Besylate (Norvasc) 5 mg DAILY GT 04/09/19 09:00 05/04/19 08:59 04/12/19 08:36 Ascorbic Acid (Vitamin C) 500 mg DAILY GT 04/09/19 09:00 05/04/19 08:59 04/12/19 08:36 Bisacodyl (Dulcolax) 10 mg DAILYPRN PRN RECTAL Constipation 04/08/19 13:30 05/07/19 13:29 Brimonidine Tartrate (Alphagan) 1 drop TID BOTH EYES 04/08/19 18:00 05/04/19 08:59 04/12/19 08:40 Chlorhexidine Gluconate (Kylee-Hex 2%) 1 applic DAILY@2000 TOPIC 04/08/19 20:00 05/05/19 19:59 04/11/19 20:54 Docusate Sodium (Colace) 100 mg BID GT 04/08/19 18:00 05/04/19 08:59 04/11/19 17:46 Fluconazole (Diflucan) 100 mg DAILY GT 04/09/19 09:00 04/14/19 10:44 04/12/19 08:36 Lansoprazole (Prevacid) 30 mg DAILY GT 04/13/19 09:00 05/13/19 08:59 Lorazepam (Ativan) 1 mg Q4H PRN GT For Anxiety 04/08/19 13:30 04/14/19 13:29 Magnesium Hydroxide (Mom) 30 ml DAILY GT 04/09/19 09:00 05/04/19 08:59 04/11/19 09:14 Multivitamins Therapeutic (Therapeutic Multivitamin) 1 ea DAILY ORAL 04/09/19 09:00 05/04/19 08:59 04/12/19 08:36 Olanzapine (ZyPREXA) 5 mg TID GT 04/08/19 18:00 05/04/19 08:59 04/12/19 08:36 Sodium Chloride 1,000 ml @ 75 mls/hr [id number] IV 04/08/19 13:30 05/07/19 11:59 04/12/19 10:50 Zolpidem Tartrate (Ambien) 5 mg HSPRN PRN GT Insomnia 04/08/19 21:00 04/14/19 20:59 Lindsay Poole MD Apr 12, 2019 11:09
[2019-04-12 12:00] VITALS: BP 113/49
--- NOTE | 2019-04-12 14:48 | NUR ---
NURSE NOTES: Report given to Kesha Beltran.
--- NOTE | 2019-04-12 14:48 | NUR ---
RD ASSESSMENT & RECOMMENDATIONS SEE CARE ACTIVITY FOR COMPLETE ASSESSMENT DAILY ESTIMATED NEEDS: Needs based on Underweight, sepsis/ 40g 30-35 kcals/kg 6089-5411 total kcals 1.25-2 g protein/kg 50-80 g total protein 25-30 mL/kg 8110-7445 total fluid mLs NUTRITION DIAGNOSIS: * Swallowing difficulty R/T dysphagia as evidenced by pt is PEG dep. * Increased kcal/prot needs R/T underweight status,sepsis, as evidenced by low BMI per guidelines, noted w/ moderate to severe generalized wasting, elev WBC, on- now off pressor support. CURRENT TF:Jevity 1.2 @ 50ml/hr x 24 hrs ENTERAL NUTRITION RECOMMENDATIONS: Jevity 1.2 @ 50ml/hr x 24 hrs to provide 1200ml, 1440kcal, 67g prot, 968ml free H2O * With continued good glycemic control,maintain current TF Jevity 1.2 @50ml to meet 100% est needs. * HOB over 30 degrees/ water flush per MD --- With elev BG, rec TF change to Glucerna 1.2 @50ml/hr to meet 100% est needs. ADDITIONAL RECOMMENDATIONS: * Calibrated bedscale wt + weekly wt monitoring Bed scale: 88.7lbs EMR wt: now 111 lbs Recent adm wt: 96.6lbs * Wound care: KAYLEEN BID via GT * REC CARB CONTROL FORMULA FOR HYPERGLYCEMIA . . -
--- NOTE | 2019-04-12 15:01 | Surgery Progress Note ---
Surgery Progress Note Subjective Additional Comments No acute events. Doing well. Exam unchanged. Objective Last 24 Hour Vital Signs Date Time Temp Pulse Resp B/P (MAP) Pulse Ox O2 Delivery O2 Flow Rate FiO2 04/12/19 12:00 97.2 56 20 113/49 (70) 94 04/12/19 12:00 54 04/12/19 09:00 Room Air 04/12/19 08:36 61 104/50 04/12/19 08:00 97.9 61 22 104/50 (68) 98 04/12/19 08:00 56 04/12/19 04:00 98.5 60 18 121/50 (73) 96 04/12/19 03:27 60 04/12/19 00:00 98.1 62 18 118/58 (78) 99 04/11/19 23:36 62 04/11/19 21:00 Room Air 04/11/19 20:00 98.0 52 17 101/57 (72) 98 04/11/19 19:52 52 04/11/19 16:39 66 04/11/19 16:36 97.5 63 18 132/65 (87) 98 I&O Intake and Output 04/11/19 04/12/19 18:59 06:59 Output Total 900 ml 1100 ml Balance -900 ml -1100 ml Output Urine Total 900 ml 1100 ml # Voids 3 # Bowel Movements 1 Dressing: dry Wound: clean Cardiovascular: RSR Respiratory: clear Abdomen: soft, non-tender, present bowel sounds Extremities: no edema, no tenderness, no cyanosis Laboratory Tests Test 04/12/19 06:00 Zinc Level Pending Plan Problems: (1) Abnormal LFTs Assessment & Plan: likely related to hypotension and sepsis will trend Echo ordered and results noted. (2) Septic shock Assessment & Plan: 79F in septic shock, hypotensive, on pressors, leukocytosis , lactic acidosis unable to obtain peripheral line has IO but not safe in elderly in her condition needs central venous access. see note IV abx labs improving exam stable iv fluids diet thank you will follow with recs (3) Decubitus skin ulcer Assessment & Plan: Pt presented on admission with contractures and multiple pressure injuries. Non-Blanchable erythema without induration or fluctuance noted to R scapula (L) 4cm x (W)3.2cm. Two partial thickness pressure injuries noted to R thoracic area-Proximal wound is a partial thickness wound. Base of wound is moist and viable with surrounding non-blanching erythema without induration/fluctuance (L)2.5cm x (W) 3cm. Inferior wound in close proximity to above wound -Base of wound is moist and viable with surrounding non-Blanching erythema without induration/ fluctuance (L)3.5cm x (W)2cm. DTPI noted to L trochanter. Base of wound is purple with surrounding maroon borders. Base of wound is indurated. Periwound without erythema or induration.(L )4.3cm x (W)4.2cm. DTPI noted to R trochanter.Base of wound is purple with surrounding maroon discoloration. Base of wound is indurated. Non-blanchable erythema without fluctuance periwound. (L)7.3cm x (W)7.2cm. DTPI noted to sacrum. Base of wound is indurated- purple with maroon areas. Non- blanching erythema without fluctuance or induration periwound. DTPI that is partially opened along borders distal /lateral R foot.Base of wound is fluctuant and maroon in colour .No exudate noted. (L)3cm x (W)2.5cm. Periwound is pink and blanchable. Bilat heels and malleoli each feet are pink and blanchable. No other areas of concerns noted. Tx.Plan: Apply Cavilon Skin Barrier [place] to R scapula. Cover with Optifoam drsg. Change every 7 days and prn. Apply Cavilon Skin barrier spray to R and L Trochanters. Apply Triad paste. Cover each site with Optifoam drsg. Change every 3 days and prn. Apply Cavilon Skin Barrier [place] to Sacrum then apply Triad. Cover with Optifoam drsg. Change every 3 days and PRN. Apply Cavilon Skin Barrier to distal/lateral R foot. Cover with Optifoam drsg. Change every 3 days and prn. Apply Triad Paste to wounds R thoracic (2 sites). Cover with Optifoam drsg. change every 3 days and prn APM/LEONARD mattress overlay. Reposition at least every 2hours or as tolerated. Place pillow between knees. Off-load heels with pillow. Alistair Nieves Apr 12, 2019 15:01
[2019-04-12 16:00] VITALS: BP 132/82
--- NOTE | 2019-04-12 16:18 | NUR ---
NURSE NOTES: Pt discharged via EMT personnel in stable condition. tele box removed and returned to tele unit. Central line removed and pressure applied for 10 min (no bleeding observed- pt tolerated procedure). Pt has no belongings.
[2019-04-13] MEDS ORDERED: Lansoprazole 15mg cap GT SCH (09:00)
--- NOTE | 2019-04-13 11:31 | Discharge Summary ---
Discharge Summary Discharge Summary _ DATE OF ADMISSION: 04/03/2019 DATE OF DISCHARGE: DISCHARGED BY: Dr. Bernal/IM, pulmonary REASON FOR ADMISSION: 79 years old female with past medical history of hypertension, dementia, kidney injury, schizophrenia , aphasia , dysphagia, G tube, depression , was sent from the [facility] facility due to fever. Patient nonverbal at baseline and was unable to provide any additional history. No reported respiratory distress. No reported nausea and vomiting. Upon evaluation patient was tachycardic, tachypneic, hypotensive, febrile and hypoxic. Patient required 100% nonrebreathing mask. Laboratory work-up revealed leukocytosis with WBC 17.5, stable hemoglobin and hematocrit. Elevated lactic acid 3.8. Urinalysis was grossly positive for UTI. Elevated BUN and creatinine 99/2.4. Elevated liver enzymes AST 212, ALT 273. Troponin elevated 0.088. ProBNP 2693. Chest x-ray revealed no acute cardiopulmonary pathology. EKG revealed normal sinus rhythm , no acute ischemic changes. Central line was attempted to be placed in the emergency department for pressors , but attempt t was unsuccessful. Repeated chest x-ray revealed no pneumothorax. Intraosseous IV line was placed in the tibia. Patient started on pressors. Septic work-up initiated :patient received fluid challenge, pancultured , and started on empiric antibiotics. CONSULTANTS: ID specialist Dr. Poole compounding and finishing supervisor Dr. Anand [facility] Dr. Nieves [facility] COURSE: Patient admitted to ICU. Patient was on the IV fluids and pressors. Patient continued on empiric antibiotics. Patient had a central line placed by surgeon via left subclavian vein, since the intraosseous access, initially started in the emergency room, was not safe for elderly in her condition. Hemodynamic status was closely monitored with goal to keep mean arterial blood pressure above 65.patietn was on levophed and Dopamine. Supplemental oxygen titrated as needed to keep pulse oximetry above 92%. Pulmonary toilet provided via handheld nebulizing via with bronchodilator. Renal parameters and electrolytes were closely monitored. Nephrotoxins avoided. Potassium was replaced. Magnesium level was stable. Technology Internship followed. Abdominal ultrasound revealed bilateral moderate hydronephrosis and bilateral collecting system calculi. No gallstones , no dilated bile ducts. Prior to discharge BUN from 99 down to 25 and creatinine from 2.4 down to 0.8. Hypernatremia resolved with IV fluids , prior to discharge sodium 139. Antibiotics provided as per ID specialist recommendations. Blood cultures were negative. Urine culture revealed Puja. Patient completed antibiotic while in hospital. Patient eventually was able to be weaned from pressors. Hemodynamic status was closely monitored. When blood pressure stabilized, patient started on calcium channel mark. Blood pressure remained stable. Tube feeding and protein supplements provided as per registered nurse first assistant recommendation. GI prophylaxis provided. Bowel regimen instituted. Strict aspiration precaution maintained. LFT were closely monitored. LFT trended down: AST from 212 down to 26 and ALT from 273 down to 109. As mentioned above , abdominal ultrasound revealed no evidence of gallstones or dilated bile ducts. Transaminitis was likely due to shock liver secondary to septic shock. Surgeon closely followed. Wound care for multiply pressure injury , present on admission, was provided as per surgeon recommendation Continue wound care at the facility. Patient clinically stabilized. Pulse oximetry was stable on room air. Acute renal failure resolved. Patient completed antibiotics. Hemodynamic status stable. Leukocytosis and fevers resolved. Central line was discontinued prior to discharge. Patient was stable for discharge back to [facility] facility for continuation of care. FINAL DIAGNOSES: Septic shock -resolved Sepsis Fungal UTI Toxic metabolic encephalopathy Acute kidney injury-resolved Hypernatremia -resolved Abnormal LFT, likely shock liver due to septic shock Hypokalemia History of hypertension Bilateral renal stones Severe protein calorie malnutrition Contractures Bedbound status Dementia Decubitus ulcer/multiply pressure injuries -present on admission DISCHARGE MEDICATIONS: List of medication was sent to accepting facility DISCHARGE INSTRUCTIONS: Patient was discharged to the [facility] facility. Follow up with medical doctor at the facility. I have been assigned to dictate discharge summary for this account. I was not involved in the patient's management. Amina Guidry NP Apr 13, 2019 11:31
== END 2019-04-12 16:20 | DRG 871 ==
LOC: EDBD 16:24 → EMR 17:20 → ICU 17:57 → EDBEDREQSVC 18:03 → EDBEDREQ 18:03 → 2E 04-07 17:08 → ICU 04-08 00:07 → 2E 04-08 13:16
PROC: 05H633Z Insertion of Infusion Device into Left Subclavian Vein, Percutaneous Approach (ICD-10-PCS; principal; 2019-04-03)
PROC: 30233N1 Transfusion of Nonautologous Red Blood Cells into Peripheral Vein, Percutaneous Approach (ICD-10-PCS; 2019-04-06)
DX: A41.9 Sepsis, unspecified organism (principal); R65.21 Severe sepsis with septic shock; E43 Unspecified severe protein-calorie malnutrition; G92 Toxic encephalopathy; K72.00 Acute and subacute hepatic failure without coma; Z68.1 Body mass index [BMI] 19.9 or less, adult; E87.0 Hyperosmolality and hypernatremia; N17.9 Acute kidney failure, unspecified; B37.41 Candidal cystitis and urethritis; B37.49 Other urogenital candidiasis; Z43.1 Encounter for attention to gastrostomy; N20.0 Calculus of kidney; L89.159 Pressure ulcer of sacral region, unspecified stage; L89.150 Pressure ulcer of sacral region, unstageable; L89.220 Pressure ulcer of left hip, unstageable; L89.210 Pressure ulcer of right hip, unstageable; E87.6 Hypokalemia; I10 Essential (primary) hypertension; M24.50 Contracture, unspecified joint; Z74.01 Bed confinement status; Z88.6 Allergy status to analgesic agent; H40.9 Unspecified glaucoma; Z22.322 Carrier or suspected carrier of Methicillin resistant Staphylococcus aureus; F03.90 Unspecified dementia, unspecified severity, without behavioral disturbance, psychotic disturbance, mood disturbance, and anxiety; L89.109 Pressure ulcer of unspecified part of back, unspecified stage; L89.890 Pressure ulcer of other site, unstageable
CPT/HCPCS: 36415; 36600; 71045; 76700; 80048; 80053; 80202; 81003; 82270; 82550; 82553; 82803; 83605; 83735; 83880; 84134; 84484; 85007; 85025; 86850; 86900; 86901; 86920; 87040; 87081; 87086; 93005; 93306; 96361; 96365; 99291; J8499

== ENCOUNTER 2019-12-24 18:54 | Inpatient (IN) | payer MEDICARE, MEDICAID ==
[~2019-12-24] VITALS: Ht 160 cm; Wt 47.7 kg
[~2019-12-24 18:54] MED LIST changes: +ACETAMINOPHEN325 M1 GT; +ALBUTEROL2.5 MG/3 M INH; +AMLODIPINE BESYL5 MG GT; +ASCORBIC ACID500 MG GT; +BISACODYL10 M1 RC; +FERROUS SU220 MG/51 GT; +FERROUS SU300 MG/5 M ORAL; +FOLIC ACID1 MG GT; +MACRODANTIN50 MG GT; +MILK OF MA400 MG/51 GT; +MULTIVITAMINS1 EAC8 GT; +MYLANTA SUSPENSION GT; +PRO-STAT LIQUID30 ML GT; +PROTONIX20 MG GT; +PROTONIX40 M2 GT; +ZINC SULFATE220 M1 GT
--- NOTE | 2019-12-24 19:14 | Emergency Room Report ---
History of Present Illness General Chief Complaint: Gastrointestinal Bleed Source: Patient Present Illness HPI Presents with reports of possible rectal bleeding versus vaginal bleeding the half-way reports that they were uncertain of the source However it has been going on for the past 2 days and patient sent to the emergency room patient herself has multiple comorbidities has been here with septic shock Previously At this time also multiple psychiatric underlying disorders patient is not able to have appropriate conversation with us and it does limit the history of present illness There was no reports of vomiting or diarrhea otherwise Allergies: Coded Allergies: MORPHINE (Verified Allergy, Unknown, 07/18/09) COVID-19 Screening Contact w/high risk pt: No Recent Travel to affected area: No Experienced COVID-19 symptoms?: No Patient History Limited by: medical condition Past Medical History: see triage record Now: No Reviewed Nursing Documentation: PMH: Agreed; PSxH: Agreed Nursing Documentation-PMH Past Medical History: No History, Except For Hx Hypertension: Yes Hx Pacemaker: No Hx Asthma: No Hx COPD: No Hx Cancer: No Hx Gastrointestinal Problems: Yes Hx Dialysis: No - kidney failure History Of Psychiatric Problem: No - bipolar, schizo Hx Neurological Problems: Yes Hx Encephalitis: Yes Hx Aphasia: Yes Hx Weakness: Yes Review of Systems All Other Systems: limited - Other than the ones mentioned in the history of present illness all others are reviewed however they do stay limited due to the patient's mental status Physical Exam Vital Signs Date Time Temp Pulse Resp B/P (MAP) Pulse Ox O2 Delivery O2 Flow Rate FiO2 12/24/19 18:45 66 16 126/54 (78) Sp02 EP Interpretation: reviewed, normal General Appearance: no apparent distress Head: normocephalic, atraumatic Eyes: bilateral eye PERRL, bilateral eye EOMI ENT: hearing grossly normal, EOM grossly intact Neck: supple Respiratory: lungs clear, no retraction, no accessory muscle use Cardiovascular #1: regular rate, rhythm Gastrointestinal: non tender, soft Musculoskeletal: other - Patient does not follow commands however no obvious focal deficit in the upper extremities Neurologic: responsive - To physical stimuli Skin: no rash Lymphatic: no adenopathy Medical Decision Making Diagnostic Impression: Primary Impression: Hematuria Additional Impressions: Urinary tract infection Hemorrhagic cystitis ER Course Multiple differentials are in consideration Initial evaluation does not reveal any obvious source rectal exam does not show any signs of hemorrhage vaginal external evaluation does not show any signs of hemorrhage we did place a pad On the patient And it became clear that the bleeding source was from the urine Bryant catheter was placed and there is gross hematuria noted Patient CT imaging shows intrarenal stone also some hydronephrosis Patient's urine sample shows infectious process as well Patient initiated on IV antibiotics and admitted for further inpatient care Labs Test 12/24/19 19:00 12/24/19 20:15 White Blood Count 9.4 K/UL (4.8-10.8) Red Blood Count 3.23 M/UL (4.20-5.40) Hemoglobin 8.9 G/DL (12.0-16.0) Hematocrit 28.9 % (37.0-47.0) Mean Corpuscular Volume 89 FL (80-99) Mean Corpuscular Hemoglobin 27.6 PG (27.0-31.0) Mean Corpuscular Hemoglobin Concent 30.9 G/DL (32.0-36.0) Red Cell Distribution Width 16.3 % (11.6-14.8) Platelet Count 147 K/UL (150-450) Mean Platelet Volume 9.0 FL (6.5-10.1) Neutrophils (%) (Auto) 60.6 % (45.0-75.0) Lymphocytes (%) (Auto) 33.1 % (20.0-45.0) Monocytes (%) (Auto) 5.2 % (1.0-10.0) Eosinophils (%) (Auto) 0.4 % (0.0-3.0) Basophils (%) (Auto) 0.8 % (0.0-2.0) Sodium Level 139 MMOL/L (136-145) Potassium Level 4.3 MMOL/L (3.5-5.1) Chloride Level 102 MMOL/L (98-107) Carbon Dioxide Level 27 MMOL/L (21-32) Anion Gap 10 mmol/L (5-15) Blood Urea Nitrogen 53 mg/dL (7-18) Creatinine 1.2 MG/DL (0.55-1.30) Estimat Glomerular Filtration Rate 43.3 mL/min (>60) Glucose Level 91 MG/DL (74-106) Calcium Level 9.4 MG/DL (8.5-10.1) Urine Color Red Urine Appearance Very cloudy Urine pH 8 (4.5-8.0) Urine Specific [place] 1.010 (1.005-1.035) Urine Protein 4+ (NEGATIVE) Urine Glucose (UA) Negative (NEGATIVE) Urine Ketones 1+ (NEGATIVE) Urine Blood 5+ (NEGATIVE) Urine Nitrite Negative (NEGATIVE) Urine Bilirubin Negative (NEGATIVE) Urine Urobilinogen Normal MG/DL (0.0-1.0) Urine Leukocyte Esterase 3+ (NEGATIVE) Urine RBC Tntc /HPF (0 - 2) Urine WBC 40-60 /HPF (0 - 2) Urine Squamous Epithelial Cells Occasional /LPF Urine Bacteria Many /HPF (NONE) Rhythm Strip Diag. Results EP Interpretation: yes Rate: 80 Rhythm: NSR, no PVC's, no ectopy CT/MRI/US Diagnostic Results CT/MRI/US Diagnostic Results : Impression CT abdomen pelvisIMPRESSION: Right hydronephrosis with a 2.1 x 1.4 x 1.3 cm stone in the right renal pelvis. Last Vital Signs Date Time Temp Pulse Resp B/P (MAP) Pulse Ox O2 Delivery O2 Flow Rate FiO2 12/24/19 18:45 66 16 126/54 (78) Status: improved Disposition: ADMITTED INPATIENT Condition: Serious ChrisbarbShane OCHOA Dec 24, 2019 19:14
[2019-12-24 19:20] VITALS: BP 109/65
[2019-12-24 19:39] LABS: BASOPHILS % (AUTO) 0.8 % (0.0-2.0); EOSINOPHILS % (AUTO) 0.4 % (0.0-3.0); HEMATOCRIT 28.9 % (37.0-47.0); HEMOGLOBIN 8.9 G/DL (12.0-16.0); LYMPHOCYTES % (AUTO) 33.1 % (20.0-45.0); MEAN CORPUSCULAR VOLUME 89 FL (80-99); MONOCYTES % (AUTO) 5.2 % (1.0-10.0); NEUTROPHILS % (AUTO) 60.6 % (45.0-75.0); PLATELET COUNT 147 K/UL (150-450); RED BLOOD COUNT 3.23 M/UL (4.20-5.40); RED CELL DISTRIBUTION WIDTH 16.3 % (11.6-14.8); WHITE BLOOD COUNT 9.4 K/UL (4.8-10.8)
[2019-12-24 19:41] LABS: ANION GAP 10 mmol/L (5-15); BLOOD UREA NITROGEN 53 mg/dL (7-18); CALCIUM 9.4 MG/DL (8.5-10.1); CARBON DIOXIDE 27 MMOL/L (21-32); CHLORIDE 102 MMOL/L (98-107); CREATININE 1.2 MG/DL (0.55-1.30); POTASSIUM 4.3 MMOL/L (3.5-5.1); SODIUM 139 MMOL/L (136-145)
[2019-12-24] MEDS ORDERED: cefTRIAXone 1 GM in NS 55 ML IVPB ONE (20:45)
[2019-12-24 20:47] LABS: APPEARANCE,URINE VERY CLOUDY; BILIRUBIN, URINE NEGATIVE (NEGATIVE); GLUCOSE, URINE (UA) NEGATIVE (NEGATIVE); KETONES,URINE 1+ (NEGATIVE); LEUKOCYTE ESTERASE ,URINE 3+ (NEGATIVE); NITRITE,URINE NEGATIVE (NEGATIVE); PH,URINE 8 (4.5-8.0); PROTEIN,URINE 4+ (NEGATIVE); UROBILINOGEN,URINE NORMAL MG/DL (0.0-1.0)
[2019-12-24 20:49] LABS: COLOR,URINE RED
--- NOTE | 2019-12-24 20:55 | Diagnostic Imaging Report ---
EXAM: CT Abdomen and Pelvis Without Intravenous Contrast CLINICAL HISTORY: Provided history is "BLD" TECHNIQUE: Axial computed tomography images of the abdomen and pelvis without intravenous contrast. CTDI is 4.4 mGy and DLP is 206.4 mGy-cm. One or more of the following dose reduction techniques were used: automated exposure control, adjustment of the mA and/or kV according to patient size, use of iterative reconstruction technique. COMPARISON: No relevant prior studies available. FINDINGS: Lung bases: Unremarkable. No mass. No consolidation. ABDOMEN: Liver: Unremarkable. Gallbladder and bile ducts: Unremarkable. No calcified stones. No ductal dilation. Pancreas: Unremarkable. No ductal dilation. Spleen: Unremarkable. No splenomegaly. Adrenals: Unremarkable. No mass. Kidneys and ureters: Bilateral nephrolithiasis. There is a 1.4 x 1.3 x 2.1 cm stone in the right renal pelvis. There is right hydronephrosis. Stomach and bowel: Unremarkable. No obstruction. No mucosal thickening. PELVIS: Appendix: The appendix is not identified Bladder: Unremarkable. No stones. Reproductive: Unremarkable as visualized. ABDOMEN and PELVIS: Intraperitoneal space: Unremarkable. No free air. No significant fluid collection. Bones/joints: No acute fracture. No dislocation. Soft tissues: Unremarkable. Vasculature: Unremarkable. No abdominal aortic aneurysm. Lymph nodes: Unremarkable. No enlarged lymph nodes. IMPRESSION: Right hydronephrosis with a 2.1 x 1.4 x 1.3 cm stone in the right renal pelvis.
[2019-12-24] MEDS ORDERED: EPOGEN10000 UNIT SUBQ (21:13)
[2019-12-24 21:20] VITALS: BP 115/71
[2019-12-24 22:04] VITALS: BP 138/58
[2019-12-25] VITALS: BP 129/80
[2019-12-25] MEDS ORDERED: Vancomycin 1gm in D5W 275ml IVPB SCH (02:00)
[2019-12-25 04:00] VITALS: BP 138/50
[2019-12-25 06:16] LABS: BASOPHILS % (AUTO) 0.6 % (0.0-2.0); HEMOGLOBIN 8.3 G/DL (12.0-16.0); LYMPHOCYTES % (AUTO) 20.7 % (20.0-45.0); MEAN CORPUSCULAR VOLUME 85 FL (80-99); MONOCYTES % (AUTO) 3.8 % (1.0-10.0); NEUTROPHILS % (AUTO) 74.8 % (45.0-75.0); PLATELET COUNT 147 K/UL (150-450); RED BLOOD COUNT 3.04 M/UL (4.20-5.40); RED CELL DISTRIBUTION WIDTH 13.7 % (11.6-14.8); WHITE BLOOD COUNT 11.1 K/UL (4.8-10.8)
[2019-12-25 06:32] LABS: ANION GAP 10 mmol/L (5-15); BLOOD UREA NITROGEN 53 mg/dL (7-18); CALCIUM 9.6 MG/DL (8.5-10.1); CARBON DIOXIDE 25 MMOL/L (21-32); CHLORIDE 100 MMOL/L (98-107); CREATININE 1.3 MG/DL (0.55-1.30); POTASSIUM 4.2 MMOL/L (3.5-5.1); SODIUM 135 MMOL/L (136-145)
[2019-12-25] MEDS: Piperacillin/Tazobactam 3.375 GM in NS 110 ML IVPB SCH ×3 (06:50→20:51)
[2019-12-25 08:00] VITALS: BP 125/48
[2019-12-25] MEDS: Multivitamins W/Minerals 15 ML UDC GT SCH (09:29)
[2019-12-25] MEDS: Docusate 100mg/10ml Liq GT SCH ×2 (09:29→18:13)
[2019-12-25] MEDS: 1/2NS w/KCl 20mEq 1000ml 1,000 ML IV SCH ×2 (09:51→17:58)
--- NOTE | 2019-12-25 10:27 | Diagnostic Imaging Report ---
EXAM: XR Chest, 1 View CLINICAL HISTORY: INFECT TECHNIQUE: Frontal view of the chest. COMPARISON: Chest x-ray dated 04/03/19 FINDINGS: Lungs: Patchy hazy opacity at the periphery of the right upper lung, concerning for underlying pneumonia. Remainder of the lungs appear clear. Pleural space: Unremarkable. The costophrenic angles are sharp. No visible pneumothorax. Heart: Unremarkable. No cardiomegaly. Mediastinum: Unremarkable. Bones/joints: Chronic healed fracture deformities along multiple right ribs. Vasculature: Atherosclerotic calcifications are noted within the aortic arch. IMPRESSION: 1. Patchy hazy opacity at the periphery of the right upper lung, concerning for underlying pneumonia. Recommend follow-up imaging to resolution to exclude underlying mass. 2. Chronic healed fracture deformities along multiple right ribs.
[2019-12-25 12:00] VITALS: BP 121/52
[2019-12-25] MEDS: Brimonidine 0.2% Opth Sol BOTH EYES SCH ×2 (14:55→20:51)
[2019-12-25 16:00] VITALS: BP 128/63
--- NOTE | 2019-12-25 18:30 | Consultation ---
DATE OF CONSULTATION: 12/25/2019 INFECTIOUS DISEASES CONSULTATION CONSULTING PHYSICIAN: Lindsay Poole M.D. REFERRING PHYSICIAN: Ac Bernal M.D. REASON FOR CONSULTATION: Possibility of COVID-19 pneumonia and urinary tract infection. HISTORY OF PRESENTING ILLNESS: This is a 79-year-old lady with history of psychiatry problems, who comes in with rectal bleeding versus vaginal bleeding. There was a concern for urinary tract infection and COVID-19 pneumonia and an Infectious Diseases consultation has been obtained for antibiotics. PAST MEDICAL HISTORY: 1. History of some psychiatric problem. 2. History of hypertension. 3. Bipolar disorder. 4. Schizophrenia. SOCIAL HISTORY: Unknown. FAMILY HISTORY: Unknown. REVIEW OF SYSTEMS: Unable to obtain currently. MEDICATIONS: As an inpatient, she is on brimonidine, amlodipine, docusate, multivitamin, Protonix, Zosyn, IV vancomycin, Dulcolax, Tylenol, Mylanta. ALLERGIES: To morphine noted. PHYSICAL EXAMINATION: VITAL SIGNS: Temperature of 98.2, T-max of 98.4, pulse of 67, respiratory rate 19, blood pressure 125/48, O2 saturation of 97%. Examination deferred due to possibility of COVID-19. LABORATORY AND DIAGNOSTIC DATA: White count 11.1, hemoglobin 8.3, hematocrit 26, MCV 85, platelet count of 147, neutrophils of 74%. Sodium 135, potassium 4.2, chloride 100, bicarb 25, BUN 53, creatinine 1.3, glucose 208, calcium 9.6. UA is showing 40 to 60 white cells. Urine culture showing gram-negative rods, more than 100,000 colonies. Chest x-ray showing patchy opacity in the periphery of the right upper lung concerning for pneumonia. CT abdomen and pelvis showing right-sided hydronephrosis with stone in the right renal pelvis. ASSESSMENT: This is a 79-year-old lady with history of schizophrenia, bipolar disorder, hypertension, who comes in with hematuria and was found to have: 1. Gram-negative urinary tract infection. 2. Right-sided hydronephrosis with stone in the kidney. 3. Schizophrenia. 4. Bipolar disorder. 5. Hypertension. 6. Rule out COVID-19 pneumonia. PLAN: 1. Continue Zosyn. 2. Discontinue IV vancomycin. 3. Continue isolation. 4. We will follow up on COVID-19 testing. I would like to thank, Dr. Bernal for this consultation. Lindsay Poole M.D. DR: KARL JOB#: [id number] CC: Ac Bernal M.D.; Fax#: [phone]
[2019-12-25 20:00] VITALS: BP 107/50
--- NOTE | 2019-12-25 21:45 | Consultation ---
DATE OF CONSULTATION: 12/25/2019 NEPHROLOGY CONSULTATION CONSULTING PHYSICIAN: García Alcaraz MD. REFERRING PHYSICIAN: Ac Bernal MD. REASON FOR CONSULTATION: Hematuria, renal insufficiency. HISTORY OF PRESENT ILLNESS: The [facility] with history of CVA, contractures, malnutrition, diabetes, gastritis. She is unable to give a history. She presents with hematuria. MEDICATIONS: At the [facility] include Tylenol, albuterol inhalation, ascorbic acid, amlodipine, bisacodyl, Alphagan eyedrops, DSS, Epogen, ferrous sulfate, folic acid, magnesium hydroxide, multivitamins, Macrodantin, olanzapine, Protonix, zinc, and Mylanta. SYSTEM REVIEW: The patient is unable. PHYSICAL EXAMINATION: GENERAL: The patient is lying in bed in position. VITAL SIGNS: Temperature 98.2, pulse 73, blood pressure 138/50. HEAD, EYES, EARS, NOSE, THROAT: Eyes and mouth are tightly closed. NECK: No adenopathy. LUNGS: Clear. HEART: Regular rhythm. ABDOMEN: Soft. No focal tenderness. There is gastrostomy tube. GENITOURINARY: She has a Bryant with hematuria. EXTREMITIES: Severe muscle wasting. She is contracted in all four extremities. There appears to be swelling of the right forearm due to IV and mild cellulitis. NEUROLOGIC: The patient moans, but is unable to carry on a conversation. There is left-sided weakness. LABORATORY AND DIAGNOSTIC DATA: Review of pertinent labs. On admission, white count 9.4, hemoglobin 8.9. Sodium 139, potassium 4.3, BUN 53, creatinine 1.2. The calcium is 9.4. Urine culture is growing gram-negative rods. IMPRESSION: 1. Acute kidney injury likely secondary to dehydration. 2. Nephrolithiasis and hematuria. CT reviewed. 3. Severe protein-calorie malnutrition. 4. Diabetes. 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 6. Contractures. PLAN: IV hydration. Start on empiric antibiotics pending culture. Hopefully, the hematuria will resolve with simple measures and we will observe her response in view of her debilitated status. Orders are updated. García Alcaraz M.D. DR: Joyce JOB#: [id number] CC:
--- NOTE | 2019-12-25 22:29 | History and Physical Report ---
DATE OF ADMISSION: 12/24/2019 CHIEF COMPLAINT: Possible GI bleed. HISTORY OF PRESENT ILLNESS: The patient is an elderly female with multiple medical problems. She was transferred with complaints of possible GI bleed versus vaginal bleeding. She has a prior history of dysphagia status post G-tube, contractures, history of sepsis, chronic kidney disease, GERD. She was transferred with complaints of possible bleeding. On evaluation in the emergency room, the patient's vital signs were stable. Hemoglobin was 8.9. Platelets were normal. In light of the bleeding, she is now admitted for further evaluation and care. The patient is a poor historian. She is unable to provide any additional history. There is no reports of any prior history of bleeding problems. PAST MEDICAL HISTORY: As above. PAST SURGICAL HISTORY: Includes G-tube. CURRENT MEDICATIONS: Reconciled and reviewed. ALLERGIES: Include morphine. FAMILY HISTORY: Unknown. SOCIAL HISTORY: There is no known history of tobacco, ethanol, or drugs. REVIEW OF SYSTEMS: From the patient is unobtainable as she is confused, poorly responsive. PHYSICAL EXAMINATION: VITAL SIGNS: Temperature 98.3, pulse 73, respirations 19, blood pressure 138/50. GENERAL: The patient is a chronically ill thin female, in no apparent distress. She is somewhat contracted. She does open her eyes, but does not follow commands. She does not really respond to questions. NECK: Supple. There is no adenopathy noted. No jugular venous distention. HEART: Regular rate and rhythm. LUNGS: Clear. ABDOMEN: Soft, nontender, nondistended. EXTREMITIES: No clubbing, cyanosis, or edema. NEUROLOGIC: The patient does move all extremities but is poorly responsive. She does not follow commands. LABORATORY DATA: White count 9, hemoglobin 8.9, hematocrit 28.9, platelet count 147. Sodium 139, potassium 4.3, creatinine is 1.2. UA showed 40-60 wbc's. ASSESSMENT: This is an elderly female with a history of dysphagia, G-tube, GERD, hypertension, encephalopathy admitted with complaints of possible GI bleed: 1. GI bleed. 2. UTI. 3. Possible pneumonia. PLAN: 1. IV antibiotics. 2. Monitor serial CBCs. 3. IV proton pump inhibitor. 4. GI consultation will be obtained. 5. We will follow up pending cultures. 6. Pulmonary consultation also been obtained for followup of the patient's pneumonia. Clayton Scales M.D. DR: Yokasta JOB#: [id number] CC:
[2019-12-26] VITALS: BP 100/51
[2019-12-26] MEDS: 1/2NS w/KCl 20mEq 1000ml 1,000 ML IV SCH ×4 (00:14→22:40)
[2019-12-26 04:00] VITALS: BP 124/53
[2019-12-26] MEDS: Brimonidine 0.2% Opth Sol BOTH EYES SCH ×3 (05:42→22:00)
[2019-12-26] MEDS: Piperacillin/Tazobactam 3.375 GM in NS 110 ML IVPB SCH ×3 (05:42→21:00)
[2019-12-26 08:00] VITALS: BP 122/50
[2019-12-26] MEDS: Multivitamins W/Minerals 15 ML UDC GT SCH (09:47)
[2019-12-26] MEDS: Docusate 100mg/10ml Liq GT SCH ×2 (09:47→17:59)
--- NOTE | 2019-12-26 10:12 | General Progress Note ---
Assessment/Plan Problem List: (1) GIB (gastrointestinal bleeding) ICD Codes: K92.2 - Gastrointestinal hemorrhage, unspecified SNOMED: 25160380 (2) Hydronephrosis ICD Codes: N13.30 - Unspecified hydronephrosis SNOMED: 92029448 (3) Decubitus skin ulcer ICD Codes: L89.90 - Pressure ulcer of unspecified site, unspecified stage SNOMED: 138071549 (4) Renal failure ICD Codes: N19 - Unspecified kidney failure SNOMED: 66590665 (5) Sepsis ICD Codes: A41.9 - Sepsis, unspecified organism SNOMED: 07620571 (6) Obstructive uropathy ICD Codes: N13.9 - Obstructive and reflux uropathy, unspecified SNOMED: 2368773 (7) Hematuria ICD Codes: R31.9 - Hematuria, unspecified SNOMED: 06750005 Status: stable Assessment/Plan: monitor for bleeding. cbc daily. iv ppi. stool ob. GI eval pending. eval for hydro. IV abx Subjective ROS Limited/Unobtainable: No Constitutional: Reports: malaise, weakness HEENT: Reports: no symptoms Cardiovascular: Reports: no symptoms Respiratory: Reports: no symptoms Gastrointestinal/Abdominal: Reports: blood in stool, difficulty swallowing Genitourinary: Reports: no symptoms Neurologic/Psychiatric: Reports: pre-existing deficit Endocrine: Reports: no symptoms Hematologic/Lymphatic: Reports: anemia Allergies: Coded Allergies: MORPHINE (Verified Allergy, Unknown, 07/18/09) All Systems: reviewed and negative except above Subjective No overnight events. No reports of bleeding. Tolerating feeds. CBC is currently pending. On PPI treatment. CT noted. Questionable right-sided hydronephrosis. Patient remains somnolent and drowsy and confused. Objective Last 24 Hour Vital Signs Date Time Temp Pulse Resp B/P (MAP) Pulse Ox O2 Delivery O2 Flow Rate FiO2 12/26/19 09:47 68 122/50 12/26/19 08:00 97.4 68 20 122/50 (74) 92 12/26/19 06:00 Room Air 12/26/19 04:00 98.7 64 18 124/53 (76) 99 12/26/19 00:00 98.0 72 18 100/51 (67) 97 12/25/19 21:00 Room Air 12/25/19 20:00 97.5 67 18 107/50 (69) 98 12/25/19 16:00 97.9 69 18 128/63 (84) 96 12/25/19 12:00 97.3 76 18 121/52 (75) 100 Intake and Output 12/25/19 12/26/19 19:00 07:00 Intake Total 625 ml 2405.0 ml Output Total 500 ml 1550 ml Balance 125 ml 855.0 ml Intake Free Water 100 ml 200 ml IV Total 125 ml 1485.0 ml Tube Feeding 400 ml 720 ml Output Urine Total 500 ml 1550 ml # Voids 1 # Bowel Movements 1 Height (Feet): 5 Height (Inches): 3.00 Weight (Pounds): 110 General Appearance: WD/WN, confused, cachetic EENT: normal ENT inspection Neck: normal alignment, supple Cardiovascular: normal rate, regular rhythm Respiratory/Chest: chest wall non-tender, lungs clear, normal breath sounds, no respiratory distress Abdomen: normal bowel sounds, non tender, soft, no organomegaly Edema: no edema noted Arm (L), no edema noted Arm (R), no edema noted Leg (L), no edema noted Leg (R), no edema noted Pedal (L), no edema noted Pedal (R), no edema noted Generalized Neurologic: alert, responsive, disoriented Skin: normal pigmentation Clayton Scales MD Dec 26, 2019 10:12
--- NOTE | 2019-12-26 11:26 | Nephrology Progress Note ---
Subjective ROS Limited/Unobtainable: Yes Objective Objective Last 24 Hour Vital Signs Date Time Temp Pulse Resp B/P (MAP) Pulse Ox O2 Delivery O2 Flow Rate FiO2 12/26/19 09:47 68 122/50 12/26/19 09:00 Nasal Cannula 2.0 12/26/19 08:00 97.4 68 20 122/50 (74) 92 12/26/19 06:00 Room Air 12/26/19 04:00 98.7 64 18 124/53 (76) 99 12/26/19 00:00 98.0 72 18 100/51 (67) 97 12/25/19 21:00 Room Air 12/25/19 20:00 97.5 67 18 107/50 (69) 98 12/25/19 16:00 97.9 69 18 128/63 (84) 96 12/25/19 12:00 97.3 76 18 121/52 (75) 100 Intake and Output 12/25/19 12/26/19 19:00 07:00 Intake Total 625 ml 2530.0 ml Output Total 500 ml 1550 ml Balance 125 ml 980.0 ml Intake Free Water 100 ml 200 ml IV Total 125 ml 1610.0 ml Tube Feeding 400 ml 720 ml Output Urine Total 500 ml 1550 ml # Voids 1 # Bowel Movements 1 Height (Feet): 5 Height (Inches): 3.00 Weight (Pounds): 110 General Appearance: lethargic, confused EENT: normal ENT inspection Neck: supple Cardiovascular: normal rate, regular rhythm Respiratory/Chest: lungs clear Abdomen: no organomegaly Neurologic: motor weakness, disoriented Objective less hematuria, continue hydration, atb per ID García Alcaraz MD Dec 26, 2019 11:26
[2019-12-26 12:00] VITALS: BP 130/58
[2019-12-26 12:27] LABS: HEMATOCRIT 24.4 % (37.0-47.0); HEMOGLOBIN 7.7 G/DL (12.0-16.0); MEAN CORPUSCULAR VOLUME 86 FL (80-99); PLATELET COUNT 133 K/UL (150-450); RED BLOOD COUNT 2.84 M/UL (4.20-5.40); RED CELL DISTRIBUTION WIDTH 13.9 % (11.6-14.8); WHITE BLOOD COUNT 7.6 K/UL (4.8-10.8)
[2019-12-26 16:00] VITALS: BP 114/91
--- NOTE | 2019-12-26 17:30 | Consultation ---
DATE OF CONSULTATION: 12/26/2019 CHIEF COMPLAINT: GI bleeding. HISTORY OF PRESENT ILLNESS: Most of history per chart. This is an elderly snf patient who came to the hospital with mainly for complaint of hematuria but the patient on GI bleeding and rectal bleeding so GI consult requested for further evaluation. Currently the patient on isolation for possible COVID PAST MEDICAL HISTORY: 1. CVA. 2. Contractures. 3. Malnutrition. 4. Diabetes 5. Gastritis. 6. Hypertension. 7. Pneumonia. 8. Renal disease. 9. Schizophrenia. ALLERGIES: To morphine. MEDICATIONS: Please see medication reconciliation list. SOCIAL HISTORY: Currently living in the snf. No history of tobacco, alcohol, or drug abuse. FAMILY HISTORY: Noncontributory. REVIEW OF SYSTEMS: Unable to obtain. PHYSICAL EXAMINATION: VITAL SIGNS: Temperature is 37.4, pulse 60, respirations 20, blood pressure is 122/50. HEENT: Normocephalic and atraumatic. Mild pale conjunctivae. NECK: Supple. No evidence of obvious lymphadenopathy. CARDIOVASCULAR: Regular rate and rhythm. Plus S1 and S2. LUNGS: Decreased breath sounds bilaterally based on the supine exam. ABDOMEN: Soft and nontender. No rebound. No guarding. No peritoneal sign. EXTREMITIES: No cyanosis. No clubbing. No edema LABORATORY AND DIAGNOSTIC DATA: White count 11.1, hemoglobin 8.3, hematocrit 26, platelet count 147. Sodium 135, potassium 4.2 BUN is 53, creatinine is 1.3, glucose is 208. ASSESSMENT: The patient is a 79-year-old female with numerous medical problems as dictated above, admitted to hospital with hematuria, urine tract infection, altered mental status, possible rectal bleeding. PLAN: Stool OB has been sent, still pending. At this time, the patient is on COVID isolation. Unless the patient has evidence of significant GI bleeding, we are going to hold off on any procedure. We will recommend hemoglobin and hematocrit to be monitored closely and transfuse to keep hemoglobin above 7. Follow stool OB. Consider GI procedures if needed. Meanwhile, follow with Nephrology and Urology for hematuria. Oli Keyes M.D. DR: Kenroy JOB#: [id number] CC:
[2019-12-26 20:00] VITALS: BP 105/57
--- NOTE | 2019-12-26 21:00 | Consultation ---
DATE OF CONSULTATION: 12/26/2019 CONSULTING PHYSICIAN: Ladarius Larios M.D. REFERRING PHYSICIAN: Clayton Scales M.D. REASON FOR CONSULTATION: Evaluation of hydronephrosis. HISTORY OF PRESENT ILLNESS: This is a 79-year-old female who was admitted to the hospital because of possible GI bleed. The patient had a workup including a CT scan, which showed evidence of right-sided hydronephrosis with nephrolithiasis and Urology evaluation has been requested. The patient is confused and has dementia, not able to get any history from her. Most of the history was obtained from the chart. At this time, she has a Bryant catheter indwelling. She does not appear to be in any distress. PAST MEDICAL HISTORY: Significant for history of GERD, history of contractures, history of hypertension. PAST SURGICAL HISTORY: She has a G-tube. CURRENT MEDICATIONS: Here in the hospital, the patient is on Alphagan, Norvasc, Colace, multivitamin, Protonix, Zosyn, Dulcolax, Tylenol, Mylanta. ALLERGIES: To morphine. SOCIAL HISTORY: Smoking history is unknown. REVIEW OF SYSTEMS: Unable to obtain. FAMILY HISTORY: Unable to obtain. PHYSICAL EXAMINATION: GENERAL: An elderly female, slightly cachectic appearing, confused, does not appear to be any distress. VITAL SIGNS: Temperature is 97.6, blood pressure is 130/58, pulse 73, respirations 21. HEENT: Normocephalic. NECK: Supple. ABDOMEN: Soft. The patient is severely contractured. Bryant catheter is in place. Urine is yellowish with some debris. LABORATORY DATA: Admission UA showed 4+ protein, 40 to 60 wbc's, too numerous to count rbc's, many bacteria. White count is 7.6, hemoglobin 7.7, and platelets are 133, BUN is 53, creatinine is 1.3. She did have a urine culture from admission that showed evidence of ESBL E. coli with sensitivities noted. DIAGNOSTIC IMAGING STUDIES: The patient had a CT scan of the abdomen and pelvis. There was mention of a 2.1 cm stone of the right renal pelvis with mention of right hydronephrosis. IMPRESSION: 1. Right-sided hydronephrosis which appears to be chronic. 2. Right-sided nephrolithiasis. 3. Urinary tract infection. 4. Hematuria. 5. Proteinuria. 6. Urinary retention. 7. Probable neurogenic bladder. PLAN AND DISCUSSION: Again the patient does have a very large stone of the right renal pelvis with associated hydronephrosis both of which I believe is likely chronic. She does have a urinary tract infection and she is on antibiotics and Infectious Diseases is on the case. At this time, the patient does not appear to be in acute distress with stable renal function and normal white count and afebrile. As such, I would continue with antibiotics at this point and we have to make a decision if there is any intervention necessary for the stone, which again has been chronic basis given the fact that she has all these other medical comorbidities. She has a Bryant catheter indwelling now and at some point we will consider voiding trial. At some point, she can have cystoscopy to evaluate the bladder. Thank for this consultation. Ladarius Larios M.D. DR: Jatin JOB#: [id number] CC: Jennifer Rodriguez M.D. ; FAX#: [phone] SAM AMADO M.D.; FAX#: [phone]
[2019-12-27] VITALS: BP 101/58
[2019-12-27 04:00] VITALS: BP 102/48
[2019-12-27] MEDS: Brimonidine 0.2% Opth Sol BOTH EYES SCH ×3 (05:08→21:22)
[2019-12-27] MEDS: Piperacillin/Tazobactam 3.375 GM in NS 110 ML IVPB SCH (05:08)
[2019-12-27 07:28] LABS: HEMATOCRIT 23.6 % (37.0-47.0); HEMOGLOBIN 7.7 G/DL (12.0-16.0); MEAN CORPUSCULAR VOLUME 86 FL (80-99); PLATELET COUNT 131 K/UL (150-450); RED BLOOD COUNT 2.76 M/UL (4.20-5.40); RED CELL DISTRIBUTION WIDTH 13.7 % (11.6-14.8); WHITE BLOOD COUNT 7.3 K/UL (4.8-10.8)
[2019-12-27 07:32] LABS: ANION GAP 9 mmol/L (5-15); BLOOD UREA NITROGEN 30 mg/dL (7-18); CALCIUM 8.8 MG/DL (8.5-10.1); CARBON DIOXIDE 24 MMOL/L (21-32); CHLORIDE 111 MMOL/L (98-107); CREATININE 1.3 MG/DL (0.55-1.30); POTASSIUM 5.1 MMOL/L (3.5-5.1); SODIUM 144 MMOL/L (136-145)
[2019-12-27 08:00] VITALS: BP 124/61
--- NOTE | 2019-12-27 09:12 | General Progress Note ---
Assessment/Plan Status: stable Assessment/Plan: 1. CVA. 2. Contractures. 3. Malnutrition. 4. Diabetes 5. Gastritis. 6. Hypertension. 7. Pneumonia. 8. Renal disease. 9. Schizophrenia. 10. Anemia stable H&H since yesterday stool ob pending add miralax GTF ppi daily will fu Subjective ROS Limited/Unobtainable: No Allergies: Coded Allergies: MORPHINE (Verified Allergy, Unknown, 07/18/09) Objective Last 24 Hour Vital Signs Date Time Temp Pulse Resp B/P (MAP) Pulse Ox O2 Delivery O2 Flow Rate FiO2 12/27/19 08:00 97.4 64 18 124/61 (82) 95 12/27/19 04:00 98.6 68 18 102/48 (66) 94 12/27/19 00:00 98.8 72 18 101/58 (72) 95 12/26/19 21:16 Nasal Cannula 2.0 12/26/19 20:00 98.5 72 19 105/57 (73) 95 12/26/19 16:00 98.9 79 20 114/91 (99) 93 12/26/19 12:00 97.6 73 21 130/58 (82) 94 12/26/19 09:47 68 122/50 Intake and Output 12/26/19 12/27/19 19:00 07:00 Intake Total 1790 ml 780 ml Output Total 1200 ml 900 ml Balance 590 ml -120 ml Intake Free Water 200 ml 120 ml IV Total 1170 ml Tube Feeding 420 ml 660 ml Output Urine Total 1200 ml 900 ml Laboratory Tests 12/26/19 12:00: White Blood Count 7.6, Red Blood Count 2.84L, Hemoglobin 7.7L, Hematocrit 24.4L , Mean Corpuscular Volume 86, Mean Corpuscular Hemoglobin 27.1, Mean Corpuscular Hemoglobin Concent 31.6L, Red Cell Distribution Width 13.9, Platelet Count 133L, Mean Platelet Volume 6.7, Neutrophils (%) (Auto) , Lymphocytes (%) (Auto) , Monocytes (%) (Auto) , Eosinophils (%) (Auto) , Basophils (%) (Auto) , Differential Total Cells Counted 100, Neutrophils % ( Manual) 57, Lymphocytes % (Manual) 37, Monocytes % (Manual) 6, Eosinophils % ( Manual) 0, Basophils % (Manual) 0, Band Neutrophils 0, Platelet Estimate DecreasedL, Platelet Morphology Normal, Hypochromasia 1+, Anisocytosis 1+ 12/27/19 05:38: White Blood Count 7.3, Red Blood Count 2.76L, Hemoglobin 7.7L, Hematocrit 23.6L , Mean Corpuscular Volume 86, Mean Corpuscular Hemoglobin 28.0, Mean Corpuscular Hemoglobin Concent 32.7, Red Cell Distribution Width 13.7, Platelet Count 131L, Mean Platelet Volume 7.4, Neutrophils (%) (Auto) , Lymphocytes (%) ( Auto) , Monocytes (%) (Auto) , Eosinophils (%) (Auto) , Basophils (%) (Auto) , Differential Total Cells Counted 100, Neutrophils % (Manual) 47, Lymphocytes % ( Manual) 45, Monocytes % (Manual) 7, Eosinophils % (Manual) 1, Basophils % ( Manual) 0, Band Neutrophils 0, Platelet Estimate DecreasedL, Platelet Morphology Normal, Hypochromasia 3+, Anisocytosis 1+, Sodium Level 144, Potassium Level 5.1, Chloride Level 111H, Carbon Dioxide Level 24, Anion Gap 9, Blood Urea Nitrogen 30H, Creatinine 1.3, Estimat Glomerular Filtration Rate 39.5 , Glucose Level 108H, Calcium Level 8.8 Height (Feet): 5 Height (Inches): 3.00 Weight (Pounds): 110 General Appearance: no apparent distress EENT: PERRL/EOMI Neck: supple Cardiovascular: normal rate Respiratory/Chest: decreased breath sounds Abdomen: normal bowel sounds, non tender, soft Extremities: non-tender Oli Keyes MD Dec 27, 2019 09:12
[2019-12-27] MEDS: Docusate 100mg/10ml Liq GT SCH ×2 (09:13→17:47)
[2019-12-27] MEDS: Multivitamins W/Minerals 15 ML UDC GT SCH (09:14)
--- NOTE | 2019-12-27 10:23 | General Progress Note ---
Assessment/Plan Problem List: (1) GIB (gastrointestinal bleeding) ICD Codes: K92.2 - Gastrointestinal hemorrhage, unspecified SNOMED: 22155484 (2) Hydronephrosis ICD Codes: N13.30 - Unspecified hydronephrosis SNOMED: 01311245 (3) Decubitus skin ulcer ICD Codes: L89.90 - Pressure ulcer of unspecified site, unspecified stage SNOMED: 701023682 (4) Renal failure ICD Codes: N19 - Unspecified kidney failure SNOMED: 62634496 (5) Sepsis ICD Codes: A41.9 - Sepsis, unspecified organism SNOMED: 36609876 (6) Obstructive uropathy ICD Codes: N13.9 - Obstructive and reflux uropathy, unspecified SNOMED: 4809203 (7) Hematuria ICD Codes: R31.9 - Hematuria, unspecified SNOMED: 59702673 Status: stable Assessment/Plan: monitor for bleeding. cbc daily. iv ppi. stool ob. GI and gu appreciated. await stool ob. IV abx per id follow up cultures and covid. monitor cxr. skin care. feeds Subjective ROS Limited/Unobtainable: Yes Constitutional: Reports: malaise, weakness HEENT: Reports: no symptoms Cardiovascular: Reports: no symptoms Respiratory: Reports: cough Gastrointestinal/Abdominal: Reports: blood in stool Genitourinary: Reports: no symptoms Neurologic/Psychiatric: Reports: pre-existing deficit Endocrine: Reports: no symptoms Hematologic/Lymphatic: Reports: anemia Allergies: Coded Allergies: MORPHINE (Verified Allergy, Unknown, 07/18/09) All Systems: reviewed and negative except above Subjective No overnight events. No reports of bleeding. Tolerating feeds. CBC is currently pending. On PPI treatment. CT noted. Questionable right-sided hydronephrosis. Patient remains somnolent and drowsy and confused. h/h stable. and GI noted. covid test not back yet Objective Last 24 Hour Vital Signs Date Time Temp Pulse Resp B/P (MAP) Pulse Ox O2 Delivery O2 Flow Rate FiO2 12/27/19 09:14 64 124/61 12/27/19 08:00 97.4 64 18 124/61 (82) 95 12/27/19 04:00 98.6 68 18 102/48 (66) 94 12/27/19 00:00 98.8 72 18 101/58 (72) 95 12/26/19 21:16 Nasal Cannula 2.0 12/26/19 20:00 98.5 72 19 105/57 (73) 95 12/26/19 16:00 98.9 79 20 114/91 (99) 93 12/26/19 12:00 97.6 73 21 130/58 (82) 94 Intake and Output 12/26/19 12/27/19 19:00 07:00 Intake Total 1790 ml 780 ml Output Total 1200 ml 900 ml Balance 590 ml -120 ml Intake Free Water 200 ml 120 ml IV Total 1170 ml Tube Feeding 420 ml 660 ml Output Urine Total 1200 ml 900 ml Laboratory Tests 12/26/19 12:00: White Blood Count 7.6, Red Blood Count 2.84L, Hemoglobin 7.7L, Hematocrit 24.4L , Mean Corpuscular Volume 86, Mean Corpuscular Hemoglobin 27.1, Mean Corpuscular Hemoglobin Concent 31.6L, Red Cell Distribution Width 13.9, Platelet Count 133L, Mean Platelet Volume 6.7, Neutrophils (%) (Auto) , Lymphocytes (%) (Auto) , Monocytes (%) (Auto) , Eosinophils (%) (Auto) , Basophils (%) (Auto) , Differential Total Cells Counted 100, Neutrophils % ( Manual) 57, Lymphocytes % (Manual) 37, Monocytes % (Manual) 6, Eosinophils % ( Manual) 0, Basophils % (Manual) 0, Band Neutrophils 0, Platelet Estimate DecreasedL, Platelet Morphology Normal, Hypochromasia 1+, Anisocytosis 1+ 12/27/19 05:38: White Blood Count 7.3, Red Blood Count 2.76L, Hemoglobin 7.7L, Hematocrit 23.6L , Mean Corpuscular Volume 86, Mean Corpuscular Hemoglobin 28.0, Mean Corpuscular Hemoglobin Concent 32.7, Red Cell Distribution Width 13.7, Platelet Count 131L, Mean Platelet Volume 7.4, Neutrophils (%) (Auto) , Lymphocytes (%) ( Auto) , Monocytes (%) (Auto) , Eosinophils (%) (Auto) , Basophils (%) (Auto) , Differential Total Cells Counted 100, Neutrophils % (Manual) 47, Lymphocytes % ( Manual) 45, Monocytes % (Manual) 7, Eosinophils % (Manual) 1, Basophils % ( Manual) 0, Band Neutrophils 0, Platelet Estimate DecreasedL, Platelet Morphology Normal, Hypochromasia 3+, Anisocytosis 1+, Sodium Level 144, Potassium Level 5.1, Chloride Level 111H, Carbon Dioxide Level 24, Anion Gap 9, Blood Urea Nitrogen 30H, Creatinine 1.3, Estimat Glomerular Filtration Rate 39.5 , Glucose Level 108H, Calcium Level 8.8 Height (Feet): 5 Height (Inches): 3.00 Weight (Pounds): 110 General Appearance: WD/WN, lethargic, confused, thin EENT: normal ENT inspection Neck: non-tender, normal alignment, supple Cardiovascular: normal peripheral pulses, normal rate, regular rhythm Respiratory/Chest: chest wall non-tender, lungs clear, normal breath sounds, no respiratory distress Abdomen: normal bowel sounds, non tender, soft, no organomegaly Edema: no edema noted Arm (L), no edema noted Arm (R), no edema noted Leg (L), no edema noted Leg (R), no edema noted Pedal (L), no edema noted Pedal (R), no edema noted Generalized Neurologic: alert, disoriented, unresponsive Skin: normal pigmentation Clayton Scales MD Dec 27, 2019 10:23
--- NOTE | 2019-12-27 11:02 | Infectious Diseases Prog Note ---
Assessment/Plan Assessment/Plan antibiotics : zosyn A 1. e.coli esbl urinary tract infection. 2. Right-sided hydronephrosis with stone in the kidney. 3. Schizophrenia. 4. Bipolar disorder. 5. Hypertension. 6. Rule out COVID-19 pneumonia. P 1. d/c zosyn 2. start meropenem 3. will follow up cultures 4. continue isolation Subjective ROS Limited/Unobtainable: Yes Allergies: Coded Allergies: MORPHINE (Verified Allergy, Unknown, 07/18/09) Objective Vital Signs Last 24 Hour Vital Signs Date Time Temp Pulse Resp B/P (MAP) Pulse Ox O2 Delivery O2 Flow Rate FiO2 12/27/19 09:14 64 124/61 12/27/19 09:00 Nasal Cannula 2.0 12/27/19 08:00 97.4 64 18 124/61 (82) 95 12/27/19 04:00 98.6 68 18 102/48 (66) 94 12/27/19 00:00 98.8 72 18 101/58 (72) 95 12/26/19 21:16 Nasal Cannula 2.0 12/26/19 20:00 98.5 72 19 105/57 (73) 95 12/26/19 16:00 98.9 79 20 114/91 (99) 93 12/26/19 12:00 97.6 73 21 130/58 (82) 94 Height (Feet): 5 Height (Inches): 3.00 Weight (Pounds): 110 Microbiology Date/Time Source Procedure Growth Status 12/24/19 21:00 Nasal Nares MRSA Culture - Final Staphylococcus Aureus - Mrsa Complete 12/24/19 20:15 Urine,Clean Catch Urine Culture - Final Escherichia Coli - Esbl Complete 12/24/19 21:00 Rectum - Final NO CARBAPENEM-RESISTANT ENTEROBACTERI... Complete 12/24/19 21:00 Rectum VRE Culture - Final NO VANCOMYCIN RESISTANT ENTEROCOCCUS ... Complete Laboratory Tests Test 12/26/19 12:00 12/27/19 05:38 White Blood Count 7.6 K/UL (4.8-10.8) 7.3 K/UL (4.8-10.8) Red Blood Count 2.84 M/UL (4.20-5.40) L 2.76 M/UL (4.20-5.40) L Hemoglobin 7.7 G/DL (12.0-16.0) L 7.7 G/DL (12.0-16.0) L Hematocrit 24.4 % (37.0-47.0) L 23.6 % (37.0-47.0) L Mean Corpuscular Volume 86 FL (80-99) 86 FL (80-99) Mean Corpuscular Hemoglobin 27.1 PG (27.0-31.0) 28.0 PG (27.0-31.0) Mean Corpuscular Hemoglobin Concent 31.6 G/DL (32.0-36.0) L 32.7 G/DL (32.0-36.0) Red Cell Distribution Width 13.9 % (11.6-14.8) 13.7 % (11.6-14.8) Platelet Count 133 K/UL (150-450) L 131 K/UL (150-450) L Mean Platelet Volume 6.7 FL (6.5-10.1) 7.4 FL (6.5-10.1) Neutrophils (%) (Auto) % (45.0-75.0) % (45.0-75.0) Lymphocytes (%) (Auto) % (20.0-45.0) % (20.0-45.0) Monocytes (%) (Auto) % (1.0-10.0) % (1.0-10.0) Eosinophils (%) (Auto) % (0.0-3.0) % (0.0-3.0) Basophils (%) (Auto) % (0.0-2.0) % (0.0-2.0) Differential Total Cells Counted 100 100 Neutrophils % (Manual) 57 % (45-75) 47 % (45-75) Lymphocytes % (Manual) 37 % (20-45) 45 % (20-45) Monocytes % (Manual) 6 % (1-10) 7 % (1-10) Eosinophils % (Manual) 0 % (0-3) 1 % (0-3) Basophils % (Manual) 0 % (0-2) 0 % (0-2) Band Neutrophils 0 % (0-8) 0 % (0-8) Platelet Estimate Decreased L Decreased L Platelet Morphology Normal Normal Hypochromasia 1+ 3+ Anisocytosis 1+ 1+ Sodium Level 144 MMOL/L (136-145) Potassium Level 5.1 MMOL/L (3.5-5.1) Chloride Level 111 MMOL/L (98-107) H Carbon Dioxide Level 24 MMOL/L (21-32) Anion Gap 9 mmol/L (5-15) Blood Urea Nitrogen 30 mg/dL (7-18) H Creatinine 1.3 MG/DL (0.55-1.30) Estimat Glomerular Filtration Rate 39.5 mL/min (>60) Glucose Level 108 MG/DL (74-106) H Calcium Level 8.8 MG/DL (8.5-10.1) Current Medications Medications (Trade) Dose Ordered Sig/Marcos Route PRN Reason Start Time Stop Time Status Last Admin Dose Admin Acetaminophen (Tylenol) 650 mg Q4H PRN ORAL Temp >100.5 12/24/19 22:30 01/23/20 22:29 Al Hydroxide/Mg Hydroxide (Mylanta) 30 ml Q4HR PRN ORAL upset stomach 12/24/19 22:30 01/23/20 22:29 Amlodipine Besylate (Norvasc) 5 mg DAILY GT 12/25/19 09:00 01/24/20 08:59 12/27/19 09:14 Bisacodyl (Dulcolax) 10 mg DAILYPRN PRN RECTAL Constipation 12/25/19 00:15 03/24/20 00:14 Brimonidine Tartrate (Alphagan) 1 drop Q8HR BOTH EYES 12/25/19 14:00 03/24/20 13:59 12/27/19 05:08 Docusate Sodium (Colace) 100 mg TWICE A DAY GT 12/25/19 09:00 01/24/20 08:59 12/27/19 09:13 Multivitamins (Multivitamins W/ Minerals 15ml Liquid) 15 ml DAILY GT 12/25/19 09:00 01/24/20 08:59 12/27/19 09:14 Pantoprazole (Protonix) 40 mg DAILY@0630 ORAL 12/25/19 06:30 01/24/20 06:29 12/27/19 05:39 Piperacillin Sod/ Tazobactam Sod 3.375 gm/Sodium Chloride 110 ml @ 27.5 mls/hr EVERY 8 HOURS IVPB 12/25/19 06:00 01/01/20 05:59 12/27/19 05:08 Polyethylene Glycol (Miralax) 17 gm BEDTIME ORAL 12/27/19 21:00 01/26/20 20:59 Sodium 1,000 ml @ 75 mls/hr [id number] IV 12/26/19 12:00 01/25/20 11:59 12/26/19 22:40 Lindsay Poole MD Dec 27, 2019 11:02
[2019-12-27 12:00] VITALS: BP 130/65
--- NOTE | 2019-12-27 13:29 | Urology Progress Note ---
Assessment/Plan Status: stable Assessment/Plan: 1. Right-sided hydronephrosis which appears to be chronic. 2. Right-sided nephrolithiasis. 3. Urinary tract infection. 4. Hematuria. 5. Proteinuria. 6. Urinary retention. 7. Probable neurogenic bladder. monitor clinically abx as ordered canseco indwelling hand irrigated and do PRN voiding trial at some point tx of stone electively if feasible renal fxn stable Subjective Allergies: Coded Allergies: MORPHINE (Verified Allergy, Unknown, 07/18/09) Subjective all noted, confused, looks comfortable Objective Last 24 Hour Vital Signs Date Time Temp Pulse Resp B/P (MAP) Pulse Ox O2 Delivery O2 Flow Rate FiO2 12/27/19 12:00 98.0 66 18 130/65 (86) 95 12/27/19 09:14 64 124/61 12/27/19 09:00 Nasal Cannula 2.0 12/27/19 08:00 97.4 64 18 124/61 (82) 95 12/27/19 04:00 98.6 68 18 102/48 (66) 94 12/27/19 00:00 98.8 72 18 101/58 (72) 95 12/26/19 21:16 Nasal Cannula 2.0 12/26/19 20:00 98.5 72 19 105/57 (73) 95 12/26/19 16:00 98.9 79 20 114/91 (99) 93 Intake and Output 12/26/19 12/27/19 19:00 07:00 Intake Total 1790 ml 780 ml Output Total 1200 ml 900 ml Balance 590 ml -120 ml Intake Free Water 200 ml 120 ml IV Total 1170 ml Tube Feeding 420 ml 660 ml Output Urine Total 1200 ml 900 ml Microbiology Date/Time Source Procedure Growth Status 12/25/19 13:20 Nasopharynx Coronavirus COVID-19 PCR (JEREMY) - Final Complete 12/24/19 20:15 Urine,Clean Catch Urine Culture - Final Escherichia Coli - Esbl Complete 12/24/19 21:00 Rectum - Final NO CARBAPENEM-RESISTANT ENTEROBACTERI... Complete Current Medications Medications (Trade) Dose Ordered Sig/Marcos Route PRN Reason Start Time Stop Time Status Last Admin Dose Admin Acetaminophen (Tylenol) 650 mg Q4H PRN ORAL Temp >100.5 12/24/19 22:30 01/23/20 22:29 Al Hydroxide/Mg Hydroxide (Mylanta) 30 ml Q4HR PRN ORAL upset stomach 12/24/19 22:30 01/23/20 22:29 Amlodipine Besylate (Norvasc) 5 mg DAILY GT 12/25/19 09:00 01/24/20 08:59 12/27/19 09:14 Bisacodyl (Dulcolax) 10 mg DAILYPRN PRN RECTAL Constipation 12/25/19 00:15 03/24/20 00:14 Brimonidine Tartrate (Alphagan) 1 drop Q8HR BOTH EYES 12/25/19 14:00 03/24/20 13:59 12/27/19 05:08 Docusate Sodium (Colace) 100 mg TWICE A DAY GT 12/25/19 09:00 01/24/20 08:59 12/27/19 09:13 Meropenem 500 mg/ Sodium Chloride 55 ml @ 110 mls/hr Q12H IVPB 12/27/19 14:00 01/01/20 13:59 Multivitamins (Multivitamins W/ Minerals 15ml Liquid) 15 ml DAILY GT 12/25/19 09:00 01/24/20 08:59 12/27/19 09:14 Pantoprazole (Protonix) 40 mg DAILY@0630 ORAL 12/25/19 06:30 01/24/20 06:29 12/27/19 05:39 Polyethylene Glycol (Miralax) 17 gm BEDTIME ORAL 12/27/19 21:00 01/26/20 20:59 Sodium 1,000 ml @ 75 mls/hr [id number] IV 12/26/19 12:00 01/25/20 11:59 12/26/19 22:40 Laboratory Tests 12/27/19 05:38: White Blood Count 7.3, Red Blood Count 2.76L, Hemoglobin 7.7L, Hematocrit 23.6L , Mean Corpuscular Volume 86, Mean Corpuscular Hemoglobin 28.0, Mean Corpuscular Hemoglobin Concent 32.7, Red Cell Distribution Width 13.7, Platelet Count 131L, Mean Platelet Volume 7.4, Neutrophils (%) (Auto) , Lymphocytes (%) ( Auto) , Monocytes (%) (Auto) , Eosinophils (%) (Auto) , Basophils (%) (Auto) , Differential Total Cells Counted 100, Neutrophils % (Manual) 47, Lymphocytes % ( Manual) 45, Monocytes % (Manual) 7, Eosinophils % (Manual) 1, Basophils % ( Manual) 0, Band Neutrophils 0, Platelet Estimate DecreasedL, Platelet Morphology Normal, Hypochromasia 3+, Anisocytosis 1+, Sodium Level 144, Potassium Level 5.1, Chloride Level 111H, Carbon Dioxide Level 24, Anion Gap 9, Blood Urea Nitrogen 30H, Creatinine 1.3, Estimat Glomerular Filtration Rate 39.5 , Glucose Level 108H, Calcium Level 8.8 12/27/19 09:44: Stool Occult Blood Positive Height (Feet): 5 Height (Inches): 3.00 Weight (Pounds): 110 Objective exam stable canseco indwelling, urine yellow with debris Ladarius Larios MD Dec 27, 2019 13:29
[2019-12-27] MEDS: Meropenem 500 MG in NS 55 ML IVPB SCH (13:58)
[2019-12-27] MEDS: 1/2NS w/KCl 20mEq 1000ml 1,000 ML IV SCH (14:40)
--- NOTE | 2019-12-27 15:18 | Nephrology Progress Note ---
Assessment/Plan Problem List: (1) Hydronephrosis (2) Hematuria (3) Nephrolithiasis (4) Obstructive uropathy (5) Dehydration (6) HELENE (acute kidney injury) Plan continue hydration Subjective ROS Limited/Unobtainable: Yes Objective Objective Last 24 Hour Vital Signs Date Time Temp Pulse Resp B/P (MAP) Pulse Ox O2 Delivery O2 Flow Rate FiO2 12/27/19 12:00 98.0 66 18 130/65 (86) 95 12/27/19 09:14 64 124/61 12/27/19 09:00 Nasal Cannula 2.0 12/27/19 08:00 97.4 64 18 124/61 (82) 95 12/27/19 04:00 98.6 68 18 102/48 (66) 94 12/27/19 00:00 98.8 72 18 101/58 (72) 95 12/26/19 21:16 Nasal Cannula 2.0 12/26/19 20:00 98.5 72 19 105/57 (73) 95 12/26/19 16:00 98.9 79 20 114/91 (99) 93 Intake and Output 12/26/19 12/27/19 19:00 07:00 Intake Total 1790 ml 780 ml Output Total 1200 ml 900 ml Balance 590 ml -120 ml Intake Free Water 200 ml 120 ml IV Total 1170 ml Tube Feeding 420 ml 660 ml Output Urine Total 1200 ml 900 ml Laboratory Tests 12/27/19 05:38: White Blood Count 7.3, Red Blood Count 2.76L, Hemoglobin 7.7L, Hematocrit 23.6L , Mean Corpuscular Volume 86, Mean Corpuscular Hemoglobin 28.0, Mean Corpuscular Hemoglobin Concent 32.7, Red Cell Distribution Width 13.7, Platelet Count 131L, Mean Platelet Volume 7.4, Neutrophils (%) (Auto) , Lymphocytes (%) ( Auto) , Monocytes (%) (Auto) , Eosinophils (%) (Auto) , Basophils (%) (Auto) , Differential Total Cells Counted 100, Neutrophils % (Manual) 47, Lymphocytes % ( Manual) 45, Monocytes % (Manual) 7, Eosinophils % (Manual) 1, Basophils % ( Manual) 0, Band Neutrophils 0, Platelet Estimate DecreasedL, Platelet Morphology Normal, Hypochromasia 3+, Anisocytosis 1+, Sodium Level 144, Potassium Level 5.1, Chloride Level 111H, Carbon Dioxide Level 24, Anion Gap 9, Blood Urea Nitrogen 30H, Creatinine 1.3, Estimat Glomerular Filtration Rate 39.5 , Glucose Level 108H, Calcium Level 8.8 12/27/19 09:44: Stool Occult Blood Positive Height (Feet): 5 Height (Inches): 3.00 Weight (Pounds): 110 General Appearance: no apparent distress, confused, cachetic EENT: normal ENT inspection Neck: normal alignment Cardiovascular: regular rhythm Respiratory/Chest: lungs clear Abdomen: non tender, soft Extremities: no edema Neurologic: motor weakness, other - contracted Objective less hematuria, continue hydration, atb per ID García Alcaraz MD Dec 27, 2019 15:18
[2019-12-27 16:00] VITALS: BP 126/62
[2019-12-27 20:00] VITALS: BP 145/60
[2019-12-27] MEDS: Miralax 17gm pkt ORAL SCH (21:05)
--- NOTE | 2019-12-27 21:59 | Consultation ---
DATE OF CONSULTATION: 12/27/2019 PULMONARY CONSULTATION REASON FOR CONSULTATION: Shortness of breath, abnormal x-ray, possible pneumonia. HISTORY OF PRESENT ILLNESS: This is a 79-year-old debilitated female who presents with hematuria and possible pneumonia. The patient seen and evaluated by multiple consultants. The patient was admitted due to the above. The patient is unable to give much in the way of history. She is noted to be hypoxemic overall. Care discussed and reviewed. The patient's case discussed with the ER physician. The patient admitted also with possibility of GI bleed. She has significant contractures and poorly mobile at the nursing facility. She is unable to clear secretions actively. She has been anemic in the past requiring transfusion. The patient's appears acute in nature. No fevers reported. PAST MEDICAL HISTORY: Notable for anemia, prior transfusion, possible vaginal bleeding, contractures, G-tube, history of aspirations, history of sepsis, chronic kidney disease, GERD. MEDICATIONS: Reconciled. ALLERGIES: Reviewed. SOCIAL HISTORY: Resides at a senior living facility. Nonsmoker and nondrinker. REVIEW OF SYSTEMS: Unobtainable. FAMILY HISTORY: Unobtainable. PHYSICAL EXAMINATION: GENERAL: An ill-appearing female, nonverbal. VITAL SIGNS: Reviewed. Blood pressure 124/61, currently 95% on 2 liters, temperature 97.4, heart rate 64, respiratory rate 18. HEENT: Negative. not fully available for assessment due to inability to cooperate. NECK: Supple. LUNGS: Moderate breath sounds and scattered rhonchi. CARDIAC: S1 and S2. Regular rate and rhythm. Soft systolic murmur left upper sternal border. No rubs or gallops. ABDOMEN: Soft, nontender. G-tube in place. EXTREMITIES: Significant contractures. No edema. Reduced skin turgor. NEUROLOGIC: Responds to painful stimuli x4. LABORATORY AND DIAGNOSTIC DATA: Reviewed. Hemoglobin 7.7, hematocrit 23, platelets are 131. Chemistries noted and reviewed. BUN is 30, creatinine 1.3, sodium 144, potassium 5.1. Micro noted with MRSA colonization, E coli in the urine. IMPRESSION: Evidence of probable pneumonia based on x-ray findings, respiratory insufficiency history and evidence of aspiration, E coli UTI, right-sided hydronephrosis, schizophrenia, bipolar disorder, hypertension, rule out COVID, anemia, possible GI bleed. RECOMMENDATIONS: Supportive care. Antibiotics ordered, on meropenem for now. Followup cultures and sensitivities. Respiratory care and aspiration precautions. Await COVID testing as well as oxygen monitoring. G-tube feedings. GI followup and recommendations. Renal followup for hydration and close recommendations and intervention pending the evaluation. Ac Bernal M.D. DR: Tayo JOB#: [id number] CC: LENCHO
[2019-12-28] VITALS: BP 127/66
[2019-12-28] MEDS: Meropenem 500 MG in NS 55 ML IVPB SCH ×2 (02:00→14:18)
[2019-12-28 04:00] VITALS: BP 126/55
[2019-12-28] MEDS: Brimonidine 0.2% Opth Sol BOTH EYES SCH ×3 (05:30→21:14)
[2019-12-28 06:49] LABS: HEMATOCRIT 23.3 % (37.0-47.0); HEMOGLOBIN 7.7 G/DL (12.0-16.0); MEAN CORPUSCULAR VOLUME 86 FL (80-99); PLATELET COUNT 129 K/UL (150-450); RED BLOOD COUNT 2.71 M/UL (4.20-5.40); RED CELL DISTRIBUTION WIDTH 14.3 % (11.6-14.8); WHITE BLOOD COUNT 8.4 K/UL (4.8-10.8)
[2019-12-28 07:34] LABS: ANION GAP 9 mmol/L (5-15); BLOOD UREA NITROGEN 29 mg/dL (7-18); CALCIUM 9.2 MG/DL (8.5-10.1); CARBON DIOXIDE 24 MMOL/L (21-32); CHLORIDE 110 MMOL/L (98-107); CREATININE 1.2 MG/DL (0.55-1.30); POTASSIUM 4.7 MMOL/L (3.5-5.1); SODIUM 143 MMOL/L (136-145)
[2019-12-28 08:00] VITALS: BP 117/56
[2019-12-28] MEDS: Multivitamins W/Minerals 15 ML UDC GT SCH (09:03)
[2019-12-28] MEDS: Docusate 100mg/10ml Liq GT SCH ×2 (09:03→17:05)
--- NOTE | 2019-12-28 09:04 | Nephrology Progress Note ---
Assessment/Plan Problem List: (1) Hydronephrosis (2) Hematuria (3) Nephrolithiasis (4) Obstructive uropathy (5) Dehydration (6) HELENE (acute kidney injury) (7) Infection due to ESBL-producing Escherichia coli Plan continue hydration, urine clearing Subjective ROS Limited/Unobtainable: Yes Objective Objective Last 24 Hour Vital Signs Date Time Temp Pulse Resp B/P (MAP) Pulse Ox O2 Delivery O2 Flow Rate FiO2 12/28/19 08:00 98.1 66 18 117/56 (76) 95 12/28/19 04:00 98.1 64 19 126/55 (78) 99 12/28/19 00:00 98.5 69 19 127/66 (86) 99 12/27/19 21:26 Nasal Cannula 2.0 12/27/19 20:00 97.9 89 19 145/60 (88) 95 12/27/19 16:00 98.4 62 18 126/62 (83) 95 12/27/19 12:00 98.0 66 18 130/65 (86) 95 12/27/19 09:14 64 124/61 Intake and Output 12/27/19 12/28/19 19:00 07:00 Intake Total 315.0 ml Output Total 1000 ml 400 ml Balance -685.0 ml -400 ml IV Total 315.0 ml Output Urine Total 1000 ml 400 ml # Bowel Movements 1 Laboratory Tests 12/27/19 09:44: Stool Occult Blood Positive 12/28/19 05:55: White Blood Count 8.4, Red Blood Count 2.71L, Hemoglobin 7.7L, Hematocrit 23.3L , Mean Corpuscular Volume 86, Mean Corpuscular Hemoglobin 28.4, Mean Corpuscular Hemoglobin Concent 33.1, Red Cell Distribution Width 14.3, Platelet Count 129L, Mean Platelet Volume 7.1, Neutrophils (%) (Auto) , Lymphocytes (%) ( Auto) , Monocytes (%) (Auto) , Eosinophils (%) (Auto) , Basophils (%) (Auto) , Neutrophils % (Manual) [Pending], Lymphocytes % (Manual) [Pending], Platelet Estimate [Pending], Platelet Morphology [Pending], Sodium Level 143, Potassium Level 4.7, Chloride Level 110H, Carbon Dioxide Level 24, Anion Gap 9, Blood Urea Nitrogen 29H, Creatinine 1.2, Estimat Glomerular Filtration Rate 43.3, Glucose Level 114H, Calcium Level 9.2 Height (Feet): 5 Height (Inches): 3.00 Weight (Pounds): 110 General Appearance: no apparent distress, lethargic, confused EENT: normal ENT inspection Neck: normal alignment Cardiovascular: normal rate, regular rhythm Respiratory/Chest: lungs clear Abdomen: non tender Extremities: no edema Neurologic: motor weakness, disoriented Objective less hematuria, continue hydration, atb per ID García Alcaraz MD Dec 28, 2019 09:04
--- NOTE | 2019-12-28 09:56 | General Progress Note ---
Assessment/Plan Status: stable Assessment/Plan: 1. CVA. 2. Contractures. 3. Malnutrition. 4. Diabetes 5. Gastritis. 6. Hypertension. 7. Pneumonia. 8. Renal disease. 9. Schizophrenia. 10. Anemia stable H&H for 3 days stool ob positive on miralax GTF ppi daily no overt GIB plan GI procedures when off isolation will fu Subjective ROS Limited/Unobtainable: No Allergies: Coded Allergies: MORPHINE (Verified Allergy, Unknown, 07/18/09) Objective Last 24 Hour Vital Signs Date Time Temp Pulse Resp B/P (MAP) Pulse Ox O2 Delivery O2 Flow Rate FiO2 12/28/19 09:00 66 117/56 12/28/19 08:00 98.1 66 18 117/56 (76) 95 12/28/19 04:00 98.1 64 19 126/55 (78) 99 12/28/19 00:00 98.5 69 19 127/66 (86) 99 12/27/19 21:26 Nasal Cannula 2.0 12/27/19 20:00 97.9 89 19 145/60 (88) 95 12/27/19 16:00 98.4 62 18 126/62 (83) 95 12/27/19 12:00 98.0 66 18 130/65 (86) 95 Intake and Output 12/27/19 12/28/19 19:00 07:00 Intake Total 315.0 ml Output Total 1000 ml 400 ml Balance -685.0 ml -400 ml IV Total 315.0 ml Output Urine Total 1000 ml 400 ml # Bowel Movements 1 Laboratory Tests 12/28/19 05:55: White Blood Count 8.4, Red Blood Count 2.71L, Hemoglobin 7.7L, Hematocrit 23.3L , Mean Corpuscular Volume 86, Mean Corpuscular Hemoglobin 28.4, Mean Corpuscular Hemoglobin Concent 33.1, Red Cell Distribution Width 14.3, Platelet Count 129L, Mean Platelet Volume 7.1, Neutrophils (%) (Auto) , Lymphocytes (%) ( Auto) , Monocytes (%) (Auto) , Eosinophils (%) (Auto) , Basophils (%) (Auto) , Neutrophils % (Manual) [Pending], Lymphocytes % (Manual) [Pending], Platelet Estimate [Pending], Platelet Morphology [Pending], Sodium Level 143, Potassium Level 4.7, Chloride Level 110H, Carbon Dioxide Level 24, Anion Gap 9, Blood Urea Nitrogen 29H, Creatinine 1.2, Estimat Glomerular Filtration Rate 43.3, Glucose Level 114H, Calcium Level 9.2 Height (Feet): 5 Height (Inches): 3.00 Weight (Pounds): 110 General Appearance: no apparent distress EENT: normal ENT inspection Neck: supple Cardiovascular: normal rate Respiratory/Chest: decreased breath sounds Abdomen: normal bowel sounds, non tender, soft Extremities: non-tender Oli Keyes MD Dec 28, 2019 09:56
--- NOTE | 2019-12-28 11:17 | Urology Progress Note ---
Assessment/Plan Status: stable Assessment/Plan: 1. Right-sided hydronephrosis which appears to be chronic. 2. Right-sided nephrolithiasis. 3. Urinary tract infection. 4. Hematuria. 5. Proteinuria. 6. Urinary retention. 7. Probable neurogenic bladder. monitor clinically abx as ordered canseco indwelling hand irrigated and do PRN voiding trial at some point tx of stone electively if feasible renal fxn stable Subjective Allergies: Coded Allergies: MORPHINE (Verified Allergy, Unknown, 07/18/09) Subjective all noted, confused, looks comfortable Objective Last 24 Hour Vital Signs Date Time Temp Pulse Resp B/P (MAP) Pulse Ox O2 Delivery O2 Flow Rate FiO2 12/28/19 09:00 Nasal Cannula 2.0 12/28/19 09:00 66 117/56 12/28/19 08:00 98.1 66 18 117/56 (76) 95 12/28/19 04:00 98.1 64 19 126/55 (78) 99 12/28/19 00:00 98.5 69 19 127/66 (86) 99 12/27/19 21:26 Nasal Cannula 2.0 12/27/19 20:00 97.9 89 19 145/60 (88) 95 12/27/19 16:00 98.4 62 18 126/62 (83) 95 12/27/19 12:00 98.0 66 18 130/65 (86) 95 Intake and Output 12/27/19 12/28/19 19:00 07:00 Intake Total 315.0 ml Output Total 1000 ml 400 ml Balance -685.0 ml -400 ml IV Total 315.0 ml Output Urine Total 1000 ml 400 ml # Bowel Movements 1 Microbiology Date/Time Source Procedure Growth Status 12/25/19 13:20 Nasopharynx Coronavirus COVID-19 PCR ([facility]ER[facility]Y) - Final Complete 12/24/19 20:15 Urine,Clean Catch Urine Culture - Final Escherichia Coli - Esbl Complete 12/24/19 21:00 Rectum - Final NO CARBAPENEM-RESISTANT ENTEROBACTERI... Complete Current Medications Medications (Trade) Dose Ordered Sig/Marcos Route PRN Reason Start Time Stop Time Status Last Admin Dose Admin Acetaminophen (Tylenol) 650 mg Q4H PRN ORAL Temp >100.5 12/24/19 22:30 01/23/20 22:29 Al Hydroxide/Mg Hydroxide (Mylanta) 30 ml Q4HR PRN ORAL upset stomach 12/24/19 22:30 01/23/20 22:29 Amlodipine Besylate (Norvasc) 5 mg DAILY GT 12/25/19 09:00 01/24/20 08:59 12/27/19 09:14 Bisacodyl (Dulcolax) 10 mg DAILYPRN PRN RECTAL Constipation 12/25/19 00:15 03/24/20 00:14 Brimonidine Tartrate (Alphagan) 1 drop Q8HR BOTH EYES 12/25/19 14:00 03/24/20 13:59 12/28/19 05:30 Docusate Sodium (Colace) 100 mg TWICE A DAY GT 12/25/19 09:00 01/24/20 08:59 12/28/19 09:03 Meropenem 500 mg/ Sodium Chloride 55 ml @ 110 mls/hr Q12H IVPB 12/27/19 14:00 01/01/20 13:59 12/28/19 02:00 Multivitamins (Multivitamins W/ Minerals 15ml Liquid) 15 ml DAILY GT 12/25/19 09:00 01/24/20 08:59 12/28/19 09:03 Pantoprazole (Protonix) 40 mg DAILY@0630 ORAL 12/25/19 06:30 01/24/20 06:29 12/28/19 06:40 Polyethylene Glycol (Miralax) 17 gm BEDTIME ORAL 12/27/19 21:00 01/26/20 20:59 12/27/19 21:05 Sodium Chloride 1,000 ml @ 75 mls/hr [id number] IV 12/27/19 17:15 01/26/20 17:14 12/27/19 17:46 Laboratory Tests 12/28/19 05:55: White Blood Count 8.4, Red Blood Count 2.71L, Hemoglobin 7.7L, Hematocrit 23.3L , Mean Corpuscular Volume 86, Mean Corpuscular Hemoglobin 28.4, Mean Corpuscular Hemoglobin Concent 33.1, Red Cell Distribution Width 14.3, Platelet Count 129L, Mean Platelet Volume 7.1, Neutrophils (%) (Auto) , Lymphocytes (%) ( Auto) , Monocytes (%) (Auto) , Eosinophils (%) (Auto) , Basophils (%) (Auto) , Differential Total Cells Counted 100, Neutrophils % (Manual) 44L, Lymphocytes % (Manual) 49H, Monocytes % (Manual) 7, Eosinophils % (Manual) 0, Basophils % ( Manual) 0, Band Neutrophils 0, Platelet Estimate DecreasedL, Platelet Morphology Normal, Hypochromasia 1+, Anisocytosis 1+, Sodium Level 143, Potassium Level 4.7, Chloride Level 110H, Carbon Dioxide Level 24, Anion Gap 9, Blood Urea Nitrogen 29H, Creatinine 1.2, Estimat Glomerular Filtration Rate 43.3 , Glucose Level 114H, Calcium Level 9.2 Height (Feet): 5 Height (Inches): 3.00 Weight (Pounds): 110 Objective exam stable canseco indwelling, urine yellow with debris Ladarius Larios MD Dec 28, 2019 11:17
--- NOTE | 2019-12-28 11:25 | General Progress Note ---
Assessment/Plan Problem List: (1) GIB (gastrointestinal bleeding) ICD Codes: K92.2 - Gastrointestinal hemorrhage, unspecified SNOMED: 94728925 (2) Hydronephrosis ICD Codes: N13.30 - Unspecified hydronephrosis SNOMED: 78661199 (3) Decubitus skin ulcer ICD Codes: L89.90 - Pressure ulcer of unspecified site, unspecified stage SNOMED: 594968633 (4) Renal failure ICD Codes: N19 - Unspecified kidney failure SNOMED: 47724341 (5) Sepsis ICD Codes: A41.9 - Sepsis, unspecified organism SNOMED: 04169492 (6) Obstructive uropathy ICD Codes: N13.9 - Obstructive and reflux uropathy, unspecified SNOMED: 6134424 (7) Hematuria ICD Codes: R31.9 - Hematuria, unspecified SNOMED: 84468293 Status: stable Assessment/Plan: monitor for bleeding. cbc daily. iv ppi. stool ob. GI and gu appreciated. stool ob positive but h/h stable without signs of bleeding. IV abx per id follow up cultures. covid- ?dc isolation- defer to id. monitor cxr. skin care. feeds Subjective ROS Limited/Unobtainable: Yes Constitutional: Reports: malaise, weakness HEENT: Reports: no symptoms Cardiovascular: Reports: no symptoms Respiratory: Reports: cough Gastrointestinal/Abdominal: Reports: difficulty swallowing Genitourinary: Reports: hematuria Neurologic/Psychiatric: Reports: pre-existing deficit Endocrine: Reports: no symptoms Hematologic/Lymphatic: Reports: anemia Allergies: Coded Allergies: MORPHINE (Verified Allergy, Unknown, 07/18/09) All Systems: reviewed and negative except above Subjective no events. no melena or brbpr. h/h stable. on ppi. no more hematuria. confused at baseline. on GT feeds. on iv abx. Objective Last 24 Hour Vital Signs Date Time Temp Pulse Resp B/P (MAP) Pulse Ox O2 Delivery O2 Flow Rate FiO2 12/28/19 09:00 Nasal Cannula 2.0 12/28/19 09:00 66 117/56 12/28/19 08:00 98.1 66 18 117/56 (76) 95 12/28/19 04:00 98.1 64 19 126/55 (78) 99 12/28/19 00:00 98.5 69 19 127/66 (86) 99 12/27/19 21:26 Nasal Cannula 2.0 12/27/19 20:00 97.9 89 19 145/60 (88) 95 12/27/19 16:00 98.4 62 18 126/62 (83) 95 12/27/19 12:00 98.0 66 18 130/65 (86) 95 Intake and Output 12/27/19 12/28/19 19:00 07:00 Intake Total 315.0 ml Output Total 1000 ml 400 ml Balance -685.0 ml -400 ml IV Total 315.0 ml Output Urine Total 1000 ml 400 ml # Bowel Movements 1 Laboratory Tests 12/28/19 05:55: White Blood Count 8.4, Red Blood Count 2.71L, Hemoglobin 7.7L, Hematocrit 23.3L , Mean Corpuscular Volume 86, Mean Corpuscular Hemoglobin 28.4, Mean Corpuscular Hemoglobin Concent 33.1, Red Cell Distribution Width 14.3, Platelet Count 129L, Mean Platelet Volume 7.1, Neutrophils (%) (Auto) , Lymphocytes (%) ( Auto) , Monocytes (%) (Auto) , Eosinophils (%) (Auto) , Basophils (%) (Auto) , Differential Total Cells Counted 100, Neutrophils % (Manual) 44L, Lymphocytes % (Manual) 49H, Monocytes % (Manual) 7, Eosinophils % (Manual) 0, Basophils % ( Manual) 0, Band Neutrophils 0, Platelet Estimate DecreasedL, Platelet Morphology Normal, Hypochromasia 1+, Anisocytosis 1+, Sodium Level 143, Potassium Level 4.7, Chloride Level 110H, Carbon Dioxide Level 24, Anion Gap 9, Blood Urea Nitrogen 29H, Creatinine 1.2, Estimat Glomerular Filtration Rate 43.3 , Glucose Level 114H, Calcium Level 9.2 Height (Feet): 5 Height (Inches): 3.00 Weight (Pounds): 110 Objective General Appearance: WD/WN, lethargic, confused, thin EENT: normal ENT inspection Neck: non-tender, normal alignment, supple Cardiovascular: normal peripheral pulses, normal rate, regular rhythm Respiratory/Chest: chest wall non-tender, lungs clear, normal breath sounds, no respiratory distress Abdomen: normal bowel sounds, non tender, soft, no organomegaly Edema: no edema noted Arm (L), no edema noted Arm (R), no edema noted Leg (L), no edema noted Leg (R), no edema noted Pedal (L), no edema noted Pedal (R), no edema noted Generalized Neurologic: alert, disoriented, unresponsive Skin: normal pigmentation Clayton Scales MD Dec 28, 2019 11:25
--- NOTE | 2019-12-28 11:25 | Infectious Diseases Prog Note ---
Assessment/Plan Assessment/Plan antibiotics : meropenem A 1. e.coli esbl urinary tract infection. 2. Right-sided hydronephrosis with stone in the kidney. 3. Schizophrenia. 4. Bipolar disorder. 5. Hypertension. 6. COVID-19 negative P 1. continue meropenem 5 more days 2. will follow up cultures 3. d/c isolation Subjective ROS Limited/Unobtainable: Yes Allergies: Coded Allergies: MORPHINE (Verified Allergy, Unknown, 07/18/09) Objective Vital Signs Last 24 Hour Vital Signs Date Time Temp Pulse Resp B/P (MAP) Pulse Ox O2 Delivery O2 Flow Rate FiO2 12/28/19 09:00 Nasal Cannula 2.0 12/28/19 09:00 66 117/56 12/28/19 08:00 98.1 66 18 117/56 (76) 95 12/28/19 04:00 98.1 64 19 126/55 (78) 99 12/28/19 00:00 98.5 69 19 127/66 (86) 99 12/27/19 21:26 Nasal Cannula 2.0 12/27/19 20:00 97.9 89 19 145/60 (88) 95 12/27/19 16:00 98.4 62 18 126/62 (83) 95 12/27/19 12:00 98.0 66 18 130/65 (86) 95 Height (Feet): 5 Height (Inches): 3.00 Weight (Pounds): 110 Microbiology Date/Time Source Procedure Growth Status 12/25/19 13:20 Nasopharynx Coronavirus COVID-19 PCR ([facility]) - Final Complete Laboratory Tests Test 12/28/19 05:55 White Blood Count 8.4 K/UL (4.8-10.8) Red Blood Count 2.71 M/UL (4.20-5.40) L Hemoglobin 7.7 G/DL (12.0-16.0) L Hematocrit 23.3 % (37.0-47.0) L Mean Corpuscular Volume 86 FL (80-99) Mean Corpuscular Hemoglobin 28.4 PG (27.0-31.0) Mean Corpuscular Hemoglobin Concent 33.1 G/DL (32.0-36.0) Red Cell Distribution Width 14.3 % (11.6-14.8) Platelet Count 129 K/UL (150-450) L Mean Platelet Volume 7.1 FL (6.5-10.1) Neutrophils (%) (Auto) % (45.0-75.0) Lymphocytes (%) (Auto) % (20.0-45.0) Monocytes (%) (Auto) % (1.0-10.0) Eosinophils (%) (Auto) % (0.0-3.0) Basophils (%) (Auto) % (0.0-2.0) Differential Total Cells Counted 100 Neutrophils % (Manual) 44 % (45-75) L Lymphocytes % (Manual) 49 % (20-45) H Monocytes % (Manual) 7 % (1-10) Eosinophils % (Manual) 0 % (0-3) Basophils % (Manual) 0 % (0-2) Band Neutrophils 0 % (0-8) Platelet Estimate Decreased L Platelet Morphology Normal Hypochromasia 1+ Anisocytosis 1+ Sodium Level 143 MMOL/L (136-145) Potassium Level 4.7 MMOL/L (3.5-5.1) Chloride Level 110 MMOL/L (98-107) H Carbon Dioxide Level 24 MMOL/L (21-32) Anion Gap 9 mmol/L (5-15) Blood Urea Nitrogen 29 mg/dL (7-18) H Creatinine 1.2 MG/DL (0.55-1.30) Estimat Glomerular Filtration Rate 43.3 mL/min (>60) Glucose Level 114 MG/DL (74-106) H Calcium Level 9.2 MG/DL (8.5-10.1) Current Medications Medications (Trade) Dose Ordered Sig/Marcos Route PRN Reason Start Time Stop Time Status Last Admin Dose Admin Acetaminophen (Tylenol) 650 mg Q4H PRN ORAL Temp >100.5 12/24/19 22:30 01/23/20 22:29 Al Hydroxide/Mg Hydroxide (Mylanta) 30 ml Q4HR PRN ORAL upset stomach 12/24/19 22:30 01/23/20 22:29 Amlodipine Besylate (Norvasc) 5 mg DAILY GT 12/25/19 09:00 01/24/20 08:59 12/27/19 09:14 Bisacodyl (Dulcolax) 10 mg DAILYPRN PRN RECTAL Constipation 12/25/19 00:15 03/24/20 00:14 Brimonidine Tartrate (Alphagan) 1 drop Q8HR BOTH EYES 12/25/19 14:00 03/24/20 13:59 12/28/19 05:30 Docusate Sodium (Colace) 100 mg TWICE A DAY GT 12/25/19 09:00 01/24/20 08:59 12/28/19 09:03 Meropenem 500 mg/ Sodium Chloride 55 ml @ 110 mls/hr Q12H IVPB 12/27/19 14:00 01/01/20 13:59 12/28/19 02:00 Multivitamins (Multivitamins W/ Minerals 15ml Liquid) 15 ml DAILY GT 12/25/19 09:00 01/24/20 08:59 12/28/19 09:03 Pantoprazole (Protonix) 40 mg DAILY@0630 ORAL 12/25/19 06:30 01/24/20 06:29 12/28/19 06:40 Polyethylene Glycol (Miralax) 17 gm BEDTIME ORAL 12/27/19 21:00 01/26/20 20:59 12/27/19 21:05 Sodium Chloride 1,000 ml @ 75 mls/hr [id number] IV 12/27/19 17:15 01/26/20 17:14 12/27/19 17:46 Lindsay Poole MD Dec 28, 2019 11:25
[2019-12-28 12:00] VITALS: BP 133/77
--- NOTE | 2019-12-28 14:41 | Pulmonology Progress Note ---
Assessment/Plan Assessment/Plan IMPRESSION: pneumonia, respiratory insufficiency history and evidence of aspiration, E coli UTI, right-sided hydronephrosis, schizophrenia, bipolar disorder, hypertension, rule out COVID, anemia, possible GI bleed. PLAN monitor as is transfuse isolation await COVID testing aspiration precautions feed gi follow up transfuse further impression, plan, and exam edited and reviewed in detail care discussed with RN Subjective ROS Limited/Unobtainable: Yes Allergies: Coded Allergies: MORPHINE (Verified Allergy, Unknown, 07/18/09) All Systems: reviewed and negative except above Subjective care noted remains ill in bed on feeds isolation Objective Last 24 Hour Vital Signs Date Time Temp Pulse Resp B/P (MAP) Pulse Ox O2 Delivery O2 Flow Rate FiO2 12/28/19 12:00 97.7 73 19 133/77 (95) 94 12/28/19 09:00 Nasal Cannula 2.0 12/28/19 09:00 66 117/56 12/28/19 08:00 98.1 66 18 117/56 (76) 95 12/28/19 04:00 98.1 64 19 126/55 (78) 99 12/28/19 00:00 98.5 69 19 127/66 (86) 99 12/27/19 21:26 Nasal Cannula 2.0 12/27/19 20:00 97.9 89 19 145/60 (88) 95 12/27/19 16:00 98.4 62 18 126/62 (83) 95 Intake and Output 12/27/19 12/28/19 19:00 07:00 Intake Total 315.0 ml Output Total 1000 ml 400 ml Balance -685.0 ml -400 ml IV Total 315.0 ml Output Urine Total 1000 ml 400 ml # Bowel Movements 1 Objective GENERAL: An ill-appearing female, nonverbal. NECK: Supple. LUNGS: Moderate breath sounds and some rhonchi. CARDIAC: S1 and S2. Regular rate and rhythm. Soft systolic murmur left upper sternal border. No rubs or gallops. ABDOMEN: Soft, nontender. G-tube in place. EXTREMITIES: Significant contractures. No edema. Reduced skin turgor. NEUROLOGIC: Responds to painful stimuli x4. nonverbal reviewed and edited Laboratory Tests 12/28/19 05:55: White Blood Count 8.4, Red Blood Count 2.71L, Hemoglobin 7.7L, Hematocrit 23.3L , Mean Corpuscular Volume 86, Mean Corpuscular Hemoglobin 28.4, Mean Corpuscular Hemoglobin Concent 33.1, Red Cell Distribution Width 14.3, Platelet Count 129L, Mean Platelet Volume 7.1, Neutrophils (%) (Auto) , Lymphocytes (%) ( Auto) , Monocytes (%) (Auto) , Eosinophils (%) (Auto) , Basophils (%) (Auto) , Differential Total Cells Counted 100, Neutrophils % (Manual) 44L, Lymphocytes % (Manual) 49H, Monocytes % (Manual) 7, Eosinophils % (Manual) 0, Basophils % ( Manual) 0, Band Neutrophils 0, Platelet Estimate DecreasedL, Platelet Morphology Normal, Hypochromasia 1+, Anisocytosis 1+, Sodium Level 143, Potassium Level 4.7, Chloride Level 110H, Carbon Dioxide Level 24, Anion Gap 9, Blood Urea Nitrogen 29H, Creatinine 1.2, Estimat Glomerular Filtration Rate 43.3 , Glucose Level 114H, Calcium Level 9.2 Current Medications Medications (Trade) Dose Ordered Sig/Marcos Route PRN Reason Start Time Stop Time Status Last Admin Dose Admin Acetaminophen (Tylenol) 650 mg Q4H PRN ORAL Temp >100.5 12/24/19 22:30 01/23/20 22:29 Al Hydroxide/Mg Hydroxide (Mylanta) 30 ml Q4HR PRN ORAL upset stomach 12/24/19 22:30 01/23/20 22:29 Amlodipine Besylate (Norvasc) 5 mg DAILY GT 12/25/19 09:00 01/24/20 08:59 12/27/19 09:14 Bisacodyl (Dulcolax) 10 mg DAILYPRN PRN RECTAL Constipation 12/25/19 00:15 03/24/20 00:14 Brimonidine Tartrate (Alphagan) 1 drop Q8HR BOTH EYES 12/25/19 14:00 03/24/20 13:59 12/28/19 14:18 Docusate Sodium (Colace) 100 mg TWICE A DAY GT 12/25/19 09:00 01/24/20 08:59 12/28/19 09:03 Meropenem 500 mg/ Sodium Chloride 55 ml @ 110 mls/hr Q12H IVPB 12/27/19 14:00 01/01/20 13:59 12/28/19 14:18 Multivitamins (Multivitamins W/ Minerals 15ml Liquid) 15 ml DAILY GT 12/25/19 09:00 01/24/20 08:59 12/28/19 09:03 Pantoprazole (Protonix) 40 mg DAILY@0630 ORAL 12/25/19 06:30 01/24/20 06:29 12/28/19 06:40 Polyethylene Glycol (Miralax) 17 gm BEDTIME ORAL 12/27/19 21:00 01/26/20 20:59 12/27/19 21:05 Sodium Chloride 1,000 ml @ 75 mls/hr [id number] IV 12/27/19 17:15 01/26/20 17:14 12/27/19 17:46 Ac Bernal MD Dec 28, 2019 14:41
[2019-12-28 16:00] VITALS: BP 124/90
[2019-12-28 20:00] VITALS: BP 125/76
[2019-12-28] MEDS: Miralax 17gm pkt ORAL SCH (21:00)
--- NOTE | 2019-12-28 22:21 | Consultation ---
History of Present Illness General Date patient seen: Dec 28, 2019 Reason for Hospitalization: Gastrointestinal Bleed Present Illness HPI 79 year old female presents with reports of possible rectal bleeding versus vaginal bleeding the long-term reports that they were uncertain of the source. It has been going on for the past 2 days prior to admission and patient sent to the emergency room for evaluation. she has multiple comorbidities has been admitted in the past for sepsis. surgery called to evaluate and assist with care. patient seen, chart reviewed, patient examined. she is not able to provide meaningful history Allergies: Coded Allergies: MORPHINE (Verified Allergy, Unknown, 07/18/09) COVID-19 Screening Contact w/high risk pt: No Recent Travel to affected area: No Experienced COVID-19 symptoms?: No Medication History Scheduled Amino Acids/Protein Hydrolys (Pro-Stat Liquid), 30 ML GT THREE TIMES A DAY, ( Reported) Amlodipine Besylate* (Amlodipine Besylate*), 5 MG GT DAILY, (Reported) Ascorbic Acid* (Ascorbic Acid*), 500 MG GT DAILY, (Reported) Brimonidine Tartrate* (Alphagan*), 1 DROP BOTH EYES TID, (Reported) Docusate Sodium* (Docusate Sodium*), 100 MG ORAL TWICE A DAY, (Reported) Epoetin Paul (Epogen), 10,000 UNIT SUBQ 3XW, (Reported) Ferrous Sulfate (Ferrous Sulfate), 5 ML ORAL Q8HR, (Reported) Folic Acid* (Folic Acid*), 1 MG GT DAILY, (Reported) Magnesium Hydroxide* (Milk Of Magnesia*), 30 ML GT DAILY, (Reported) Multivitamin With Minerals (Multivitamins With Minerals*), 1 TAB GT DAILY, ( Reported) Nitrofurantoin Macrocrystal (Macrodantin*), 50 MG GT Q6H, (Reported) Olanzapine* (Zyprexa*), 5 MG GT TID, (Reported) Pantoprazole Sodium (Protonix), 40 MG GT DAILY, (Reported) Zinc Sulfate (Zinc Sulfate*), 220 MG GT DAILY, (Reported) Scheduled PRN Acetaminophen* (Acetaminophen 325MG Tablet*), 650 MG GT Q4H PRN for FEVER 100.5, (Reported) Acetaminophen* (Acetaminophen 325MG Tablet*), 650 MG GT Q4HR PRN for For Pain, ( Reported) Albuterol Sulfate* (Albuterol Sulfate Hhn*), 3 ML INH Q4H PRN for Shortness of Breath, (Reported) Bisacodyl (Bisacodyl), 10 MG RC DAILY PRN for Constipation, (Reported) Magnesium Hydroxide* (Milk Of Magnesia*), 5 ML GT DAILY PRN for Constipation, ( Reported) [Mylanta Suspension], 30 ML GT Q4HR PRN for INDIGESTION, (Reported) Patient History Limited by: age, medical condition History Provided By: Medical Record, PMD Healthcare decision maker N Resuscitation status Full Code Advanced Directive on File Past Medical/Surgical History Past Medical/Surgical History: (1) Schizophrenia (2) Altered mental status (3) HTN (hypertension) (4) Noncompliance (5) Abnormal LFTs (6) Urinary tract infection (7) Hemorrhagic cystitis (8) Hematuria (9) Hydronephrosis (10) Decubitus skin ulcer (11) Renal failure (12) Obstructive uropathy (13) Sepsis (14) GIB (gastrointestinal bleeding) (15) Nephrolithiasis (16) Dehydration (17) HELENE (acute kidney injury) (18) Infection due to ESBL-producing Escherichia coli Review of Systems Review of Symptoms General ROS: no weight loss or fever Psychological ROS: no depression or mood changes, no memory loss Ophthalmic ROS: no visual changes or eye irritation ENT ROS: no nasal congestion, hearing loss, dizziness Allergy and Immunology ROS: no allergic symptoms or urticaria Hematological and Lymphatic ROS: no swollen glands, unusual bleeding or bruising Endocrine ROS: no polyuria, polydipsia, weight changes, temperature intolerance Respiratory ROS: no cough, shortness of breath, or wheezing Cardiovascular ROS: no chest pain or dyspnea on exertion Gastrointestinal ROS: denies abdominal pain, bright red blood in stool. Musculoskeletal ROS: no myalgias or arthralgias Neurological ROS: no TIA or stroke symptoms Dermatological ROS: no new or changing skin lesions, rashes or pruritis not reliable but declines Physical Exam Physical Exam General appearance: alert, cooperative, no distress, appears stated age Head: Normocephalic, without obvious abnormality, atraumatic Eyes: conjunctivae/corneas clear. PERRL, EOM's intact. Fundi benign Throat: Lips, mucosa, and tongue normal. Teeth and gums normal Neck: supple, symmetrical, trachea midline, no adenopathy, thyroid: not enlarged, symmetric, no tenderness/mass/nodules, no carotid bruit and no JVD Lungs: clear to auscultation bilaterally Heart: regular rate and rhythm, S1, S2 normal, no murmur, click, rub or gallop Abdomen: soft, non-tender. Bowel sounds normal. No masses, no organomegaly Extremities: extremities normal, atraumatic, no cyanosis or edema Pulses: 2+ and symmetric Skin: Skin color, texture, turgor normal. No rashes or lesions Neurologic: Grossly normal Last 24 Hour Vital Signs Date Time Temp Pulse Resp B/P (MAP) Pulse Ox O2 Delivery O2 Flow Rate FiO2 12/28/19 16:00 97.4 76 18 124/90 (101) 95 12/28/19 12:00 97.7 73 19 133/77 (95) 94 12/28/19 09:00 Nasal Cannula 2.0 12/28/19 09:00 66 117/56 12/28/19 08:00 98.1 66 18 117/56 (76) 95 12/28/19 04:00 98.1 64 19 126/55 (78) 99 12/28/19 00:00 98.5 69 19 127/66 (86) 99 Intake and Output 12/27/19 12/28/19 19:00 07:00 Intake Total 315.0 ml 75 ml Output Total 1000 ml 400 ml Balance -685.0 ml -325 ml IV Total 315.0 ml 75 ml Output Urine Total 1000 ml 400 ml # Bowel Movements 1 Laboratory Tests Test 12/28/19 05:55 White Blood Count 8.4 K/UL (4.8-10.8) Red Blood Count 2.71 M/UL (4.20-5.40) L Hemoglobin 7.7 G/DL (12.0-16.0) L Hematocrit 23.3 % (37.0-47.0) L Mean Corpuscular Volume 86 FL (80-99) Mean Corpuscular Hemoglobin 28.4 PG (27.0-31.0) Mean Corpuscular Hemoglobin Concent 33.1 G/DL (32.0-36.0) Red Cell Distribution Width 14.3 % (11.6-14.8) Platelet Count 129 K/UL (150-450) L Mean Platelet Volume 7.1 FL (6.5-10.1) Neutrophils (%) (Auto) % (45.0-75.0) Lymphocytes (%) (Auto) % (20.0-45.0) Monocytes (%) (Auto) % (1.0-10.0) Eosinophils (%) (Auto) % (0.0-3.0) Basophils (%) (Auto) % (0.0-2.0) Differential Total Cells Counted 100 Neutrophils % (Manual) 44 % (45-75) L Lymphocytes % (Manual) 49 % (20-45) H Monocytes % (Manual) 7 % (1-10) Eosinophils % (Manual) 0 % (0-3) Basophils % (Manual) 0 % (0-2) Band Neutrophils 0 % (0-8) Platelet Estimate Decreased L Platelet Morphology Normal Hypochromasia 1+ Anisocytosis 1+ Sodium Level 143 MMOL/L (136-145) Potassium Level 4.7 MMOL/L (3.5-5.1) Chloride Level 110 MMOL/L (98-107) H Carbon Dioxide Level 24 MMOL/L (21-32) Anion Gap 9 mmol/L (5-15) Blood Urea Nitrogen 29 mg/dL (7-18) H Creatinine 1.2 MG/DL (0.55-1.30) Estimat Glomerular Filtration Rate 43.3 mL/min (>60) Glucose Level 114 MG/DL (74-106) H Calcium Level 9.2 MG/DL (8.5-10.1) Height (Feet): 5 Height (Inches): 3.00 Weight (Pounds): 110 Medications Current Medications Medications (Trade) Dose Ordered Sig/Marcos Route PRN Reason Start Time Stop Time Status Last Admin Dose Admin Acetaminophen (Tylenol) 650 mg Q4H PRN ORAL Temp >100.5 12/24/19 22:30 01/23/20 22:29 Al Hydroxide/Mg Hydroxide (Mylanta) 30 ml Q4HR PRN ORAL upset stomach 12/24/19 22:30 01/23/20 22:29 Amlodipine Besylate (Norvasc) 5 mg DAILY GT 12/25/19 09:00 01/24/20 08:59 12/27/19 09:14 Bisacodyl (Dulcolax) 10 mg DAILYPRN PRN RECTAL Constipation 12/25/19 00:15 03/24/20 00:14 Brimonidine Tartrate (Alphagan) 1 drop Q8HR BOTH EYES 12/25/19 14:00 03/24/20 13:59 12/28/19 21:14 Docusate Sodium (Colace) 100 mg TWICE A DAY GT 12/25/19 09:00 01/24/20 08:59 12/28/19 09:03 Meropenem 500 mg/ Sodium Chloride 55 ml @ 110 mls/hr Q12H IVPB 12/27/19 14:00 01/01/20 13:59 12/28/19 14:18 Multivitamins (Multivitamins W/ Minerals 15ml Liquid) 15 ml DAILY GT 12/25/19 09:00 01/24/20 08:59 12/28/19 09:03 Pantoprazole (Protonix) 40 mg DAILY@0630 ORAL 12/25/19 06:30 01/24/20 06:29 12/28/19 06:40 Polyethylene Glycol (Miralax) 17 gm BEDTIME ORAL 12/27/19 21:00 01/26/20 20:59 12/27/19 21:05 Sodium Chloride 1,000 ml @ 75 mls/hr [id number] IV 12/27/19 17:15 01/26/20 17:14 12/28/19 21:15 Assessment/Plan Problem List: (1) Urinary tract infection ICD Codes: N39.0 - Urinary tract infection, site not specified SNOMED: 10075933 (2) Hematuria ICD Codes: R31.9 - Hematuria, unspecified SNOMED: 42477886 (3) Hydronephrosis ICD Codes: N13.30 - Unspecified hydronephrosis SNOMED: 87735801 (4) Decubitus skin ulcer Assessment & Plan: Pt presented on admission with Non-blanching erythema without fluctuance L elbow. DTPI L Iliac. (L)1.5cm x (W)2.5cm. Base of wound is indurated and maroon in colour. No evidence of further skin breakdown periwound. Sacral hyperpigmentation from previous wound noted to Sacrum.Non-blanching erythema noted to sacrococcygeal are and cleft of buttocks. An area of hyperpigmentation noted to L trochanteric.Historical scar noted to L Hip. An area of hyperpigmentation noted to R trochanteric. Non-blanching erythema without fluctuance L elbow. Both heels are boggy with non-blanchable erythema. Tx.Plan:Apply Cavilon Skin Barrier to L Iliac. Cover with Optifoam drsg. Change every 7 days and prn. Apply Cavilon Skin Barrier to R and L trochanter. Cover each site with Optifoam drsg. Change every 7 days and prn. Apply Cavilon Skin Barrier to each heel. Cover each heel with Optifoam drsg. Change every 7 days and prn. Apply Moisture Barrier Paste to Sacrum. Cover with Optifoam drsg. Change every 3 days and prn. Reposition at least every 2hours or as tolerated. Off-load heels with pillow. APM/LEONARD Mattress overlay. DAILY ESTIMATED NEEDS: Needs based on Severely underweight, wounds/ 36kg 35-40 kcals/kg 6032-5177 total kcals 1.5-2 g protein/kg 54-72 g total protein 25-30 mL/kg 900-1080 total fluid mLs NUTRITION DIAGNOSIS: * Swallowing difficulty R/T dysphagia as evidenced by pt is PEG dep. 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 of Jevity 1.2- meets 100% est kcal/prot needs * HOB over 30 degrees/ water flush per MD --- With consistently elev BG, rec TF change to Glucerna 1.2 @ 60ml/hr x 20 hrs to meet 1440kcal, 72g prot ADDITIONAL RECOMMENDATIONS: * PER SNF: Ht=61" WT=80lbs * Monitor BGs, need for carb controlled TF and hypoglycemics : 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 Gallbladder and bile ducts: Unremarkable. No calcified stones. No ductal dilation. Pancreas: Unremarkable. No ductal dilation. Spleen: Unremarkable. No splenomegaly. Adrenals: Unremarkable. No mass. Kidneys and ureters: Bilateral nephrolithiasis. There is a 1.4 x 1.3 x 2.1 cm stone in the right renal pelvis. There is right hydronephrosis. Stomach and bowel: Unremarkable. No obstruction. No mucosal thickening. PELVIS: Appendix: The appendix is not identified Bladder: Unremarkable. No stones. Reproductive: Unremarkable as visualized. ABDOMEN and PELVIS: Intraperitoneal space: Unremarkable. No free air. No significant fluid collection. Bones/joints: No acute fracture. No dislocation. Soft tissues: Unremarkable. Vasculature: Unremarkable. No abdominal aortic aneurysm. Lymph nodes: Unremarkable. No enlarged lymph nodes. IMPRESSION: Right hydronephrosis with a 2.1 x 1.4 x 1.3 cm stone in the right renal pelvis. trend labs will monitor ICD Codes: K92.2 - Gastrointestinal hemorrhage, unspecified SNOMED: 65045288 (9) Nephrolithiasis ICD Codes: N20.0 - Calculus of kidney SNOMED: 65226224 (10) Dehydration ICD Codes: E86.0 - Dehydration SNOMED: 57398435 (11) HELENE (acute kidney injury) ICD Codes: N17.9 - Acute kidney failure, unspecified SNOMED: 9744301, 22075940 (12) Infection due to ESBL-producing Escherichia coli ICD Codes: A49.8 - Other bacterial infections of unspecified site; Z16.12 - Extended spectrum beta lactamase (ESBL) resistance SNOMED: 986876049 (13) Hemorrhagic cystitis ICD Codes: N30.91 - Cystitis, unspecified with hematuria SNOMED: 11522015 (14) Schizophrenia ICD Codes: F20.9 - Schizophrenia, unspecified SNOMED: 57518877 (15) Altered mental status ICD Codes: R41.82 - Altered mental status, unspecified SNOMED: 421981059 (16) HTN (hypertension) ICD Codes: I10 - Essential (primary) hypertension SNOMED: 93135959 (17) Abnormal LFTs ICD Codes: R94.5 - Abnormal results of liver function studies SNOMED: 259725120 (18) Noncompliance ICD Codes: Z91.19 - Patient's noncompliance with other medical treatment and regimen SNOMED: 5534080 Alistair Nieves Dec 28, 2019 22:20
[2019-12-29] VITALS: BP 116/50
[2019-12-29] MEDS: Meropenem 500 MG in NS 55 ML IVPB SCH ×2 (01:40→14:55)
[2019-12-29 04:10] VITALS: BP 125/67
[2019-12-29] MEDS: Brimonidine 0.2% Opth Sol BOTH EYES SCH ×3 (05:14→21:06)
[2019-12-29 06:11] LABS: HEMATOCRIT 22.8 % (37.0-47.0); HEMOGLOBIN 7.5 G/DL (12.0-16.0); MEAN CORPUSCULAR VOLUME 86 FL (80-99); PLATELET COUNT 130 K/UL (150-450); RED BLOOD COUNT 2.66 M/UL (4.20-5.40); RED CELL DISTRIBUTION WIDTH 14.2 % (11.6-14.8); WHITE BLOOD COUNT 7.7 K/UL (4.8-10.8)
[2019-12-29 06:20] LABS: ANION GAP 9 mmol/L (5-15); BLOOD UREA NITROGEN 26 mg/dL (7-18); CARBON DIOXIDE 24 MMOL/L (21-32); CHLORIDE 110 MMOL/L (98-107); CREATININE 1.1 MG/DL (0.55-1.30); POTASSIUM 4.6 MMOL/L (3.5-5.1); SODIUM 143 MMOL/L (136-145)
[2019-12-29 08:00] VITALS: BP 133/67
--- NOTE | 2019-12-29 09:21 | Nephrology Progress Note ---
Assessment/Plan Problem List: (1) Hydronephrosis (2) Hematuria (3) Nephrolithiasis (4) Obstructive uropathy (5) Dehydration (6) HELENE (acute kidney injury) (7) Infection due to ESBL-producing Escherichia coli Plan continue hydration, urine clearing Subjective ROS Limited/Unobtainable: Yes Objective Objective Last 24 Hour Vital Signs Date Time Temp Pulse Resp B/P (MAP) Pulse Ox O2 Delivery O2 Flow Rate FiO2 12/29/19 04:10 97.5 67 19 125/67 (86) 96 12/29/19 00:00 97.8 66 18 116/50 (72) 97 12/28/19 21:00 Nasal Cannula 2.0 12/28/19 20:00 97.9 80 18 125/76 (92) 95 12/28/19 16:00 97.4 76 18 124/90 (101) 95 12/28/19 12:00 97.7 73 19 133/77 (95) 94 Intake and Output 12/28/19 12/29/19 19:00 07:00 Intake Total 730 ml Output Total 900 ml 900 ml Balance -170 ml -900 ml IV Total 730 ml Output Urine Total 900 ml 900 ml # Bowel Movements 5 Laboratory Tests 12/29/19 05:40: White Blood Count 7.7, Red Blood Count 2.66L, Hemoglobin 7.5L, Hematocrit 22.8L , Mean Corpuscular Volume 86, Mean Corpuscular Hemoglobin 28.1, Mean Corpuscular Hemoglobin Concent 32.8, Red Cell Distribution Width 14.2, Platelet Count 130L, Mean Platelet Volume 7.2, Neutrophils (%) (Auto) , Lymphocytes (%) ( Auto) , Monocytes (%) (Auto) , Eosinophils (%) (Auto) , Basophils (%) (Auto) , Sodium Level 143, Potassium Level 4.6, Chloride Level 110H, Carbon Dioxide Level 24, Anion Gap 9, Blood Urea Nitrogen 26H, Creatinine 1.1, Estimat Glomerular Filtration Rate 47.9, Glucose Level 82, Calcium Level 9.0 Height (Feet): 5 Height (Inches): 3.00 Weight (Pounds): 107 General Appearance: confused, thin EENT: normal ENT inspection Neck: normal alignment Cardiovascular: regular rhythm Respiratory/Chest: lungs clear Abdomen: non tender Extremities: no edema Neurologic: motor weakness Objective less hematuria, continue hydration,iv rate reduced atb per ID García Alcaraz MD Dec 29, 2019 09:21
[2019-12-29] MEDS: Multivitamins W/Minerals 15 ML UDC GT SCH (09:29)
[2019-12-29] MEDS: Docusate 100mg/10ml Liq GT SCH ×2 (09:29→17:14)
[2019-12-29] MEDS: D5 1/4NS 1000ml 1,000 ML IV SCH (09:31)
--- NOTE | 2019-12-29 10:06 | Pulmonology Progress Note ---
Assessment/Plan Assessment/Plan IMPRESSION: pneumonia, respiratory insufficiency history and evidence of aspiration, E coli UTI, right-sided hydronephrosis, schizophrenia, bipolar disorder, hypertension, rule out COVID, anemia, possible GI bleed. PLAN monitor as is transfuse ? isolation await COVID testing aspiration precautions feed gi follow up transfuse further if HH drops impression, plan, and exam edited and reviewed in detail care discussed with RN Subjective ROS Limited/Unobtainable: Yes Allergies: Coded Allergies: MORPHINE (Verified Allergy, Unknown, 07/18/09) All Systems: reviewed and negative except above Subjective care noted remains ill in bed on feeds isolation / some congestion Objective Last 24 Hour Vital Signs Date Time Temp Pulse Resp B/P (MAP) Pulse Ox O2 Delivery O2 Flow Rate FiO2 12/29/19 09:29 66 133/67 12/29/19 08:00 98.6 66 20 133/67 (89) 94 12/29/19 04:10 97.5 67 19 125/67 (86) 96 12/29/19 00:00 97.8 66 18 116/50 (72) 97 12/28/19 21:00 Nasal Cannula 2.0 12/28/19 20:00 97.9 80 18 125/76 (92) 95 12/28/19 16:00 97.4 76 18 124/90 (101) 95 12/28/19 12:00 97.7 73 19 133/77 (95) 94 Intake and Output 12/28/19 12/29/19 19:00 07:00 Intake Total 730 ml Output Total 900 ml 900 ml Balance -170 ml -900 ml IV Total 730 ml Output Urine Total 900 ml 900 ml # Bowel Movements 5 Objective GENERAL: An ill-appearing female, nonverbal. NECK: Supple. LUNGS: Moderate breath sounds and some rhonchi. CARDIAC: S1 and S2. Regular rate and rhythm. Soft systolic murmur left upper sternal border. No rubs or gallops. ABDOMEN: Soft, nontender. G-tube in place. EXTREMITIES: Significant contractures. No edema. Reduced skin turgor. NEUROLOGIC: Responds to painful stimuli x4. nonverbal reviewed and edited Laboratory Tests 12/29/19 05:40: White Blood Count 7.7, Red Blood Count 2.66L, Hemoglobin 7.5L, Hematocrit 22.8L , Mean Corpuscular Volume 86, Mean Corpuscular Hemoglobin 28.1, Mean Corpuscular Hemoglobin Concent 32.8, Red Cell Distribution Width 14.2, Platelet Count 130L, Mean Platelet Volume 7.2, Neutrophils (%) (Auto) , Lymphocytes (%) ( Auto) , Monocytes (%) (Auto) , Eosinophils (%) (Auto) , Basophils (%) (Auto) , Sodium Level 143, Potassium Level 4.6, Chloride Level 110H, Carbon Dioxide Level 24, Anion Gap 9, Blood Urea Nitrogen 26H, Creatinine 1.1, Estimat Glomerular Filtration Rate 47.9, Glucose Level 82, Calcium Level 9.0 Current Medications Medications (Trade) Dose Ordered Sig/Marcos Route PRN Reason Start Time Stop Time Status Last Admin Dose Admin Acetaminophen (Tylenol) 650 mg Q4H PRN ORAL Temp >100.5 12/24/19 22:30 01/23/20 22:29 Al Hydroxide/Mg Hydroxide (Mylanta) 30 ml Q4HR PRN ORAL upset stomach 12/24/19 22:30 01/23/20 22:29 Amlodipine Besylate (Norvasc) 5 mg DAILY GT 12/25/19 09:00 01/24/20 08:59 12/29/19 09:29 Bisacodyl (Dulcolax) 10 mg DAILYPRN PRN RECTAL Constipation 12/25/19 00:15 03/24/20 00:14 Brimonidine Tartrate (Alphagan) 1 drop Q8HR BOTH EYES 12/25/19 14:00 03/24/20 13:59 12/29/19 05:14 Dextrose/Sodium Chloride 1,000 ml @ 50 mls/hr Q20H IV 12/29/19 09:21 01/28/20 09:20 12/29/19 09:31 Docusate Sodium (Colace) 100 mg TWICE A DAY GT 12/25/19 09:00 01/24/20 08:59 12/29/19 09:29 Meropenem 500 mg/ Sodium Chloride 55 ml @ 110 mls/hr Q12H IVPB 12/27/19 14:00 01/01/20 13:59 12/29/19 01:40 Multivitamins (Multivitamins W/ Minerals 15ml Liquid) 15 ml DAILY GT 12/25/19 09:00 01/24/20 08:59 12/29/19 09:29 Pantoprazole (Protonix) 40 mg DAILY@0630 ORAL 12/25/19 06:30 01/24/20 06:29 12/29/19 05:16 Polyethylene Glycol (Miralax) 17 gm BEDTIME ORAL 12/27/19 21:00 01/26/20 20:59 12/27/19 21:05 Ac Bernal MD Dec 29, 2019 10:06
--- NOTE | 2019-12-29 10:29 | Surgery Progress Note ---
Surgery Progress Note Subjective Additional Comments afebrile, HD stable comfortable appearing no acute events Objective Last 24 Hour Vital Signs Date Time Temp Pulse Resp B/P (MAP) Pulse Ox O2 Delivery O2 Flow Rate FiO2 12/29/19 09:29 66 133/67 12/29/19 08:00 98.6 66 20 133/67 (89) 94 12/29/19 04:10 97.5 67 19 125/67 (86) 96 12/29/19 00:00 97.8 66 18 116/50 (72) 97 12/28/19 21:00 Nasal Cannula 2.0 12/28/19 20:00 97.9 80 18 125/76 (92) 95 12/28/19 16:00 97.4 76 18 124/90 (101) 95 12/28/19 12:00 97.7 73 19 133/77 (95) 94 I&O Intake and Output 12/28/19 12/29/19 19:00 07:00 Intake Total 730 ml Output Total 900 ml 900 ml Balance -170 ml -900 ml IV Total 730 ml Output Urine Total 900 ml 900 ml # Bowel Movements 5 Dressing: dry Wound: clean Cardiovascular: RSR Respiratory: decreased breath sounds Abdomen: soft, non-tender, present bowel sounds Extremities: no tenderness, no cyanosis Laboratory Tests Test 12/29/19 05:40 White Blood Count 7.7 K/UL (4.8-10.8) Red Blood Count 2.66 M/UL (4.20-5.40) L Hemoglobin 7.5 G/DL (12.0-16.0) L Hematocrit 22.8 % (37.0-47.0) L Mean Corpuscular Volume 86 FL (80-99) Mean Corpuscular Hemoglobin 28.1 PG (27.0-31.0) Mean Corpuscular Hemoglobin Concent 32.8 G/DL (32.0-36.0) Red Cell Distribution Width 14.2 % (11.6-14.8) Platelet Count 130 K/UL (150-450) L Mean Platelet Volume 7.2 FL (6.5-10.1) Neutrophils (%) (Auto) % (45.0-75.0) Lymphocytes (%) (Auto) % (20.0-45.0) Monocytes (%) (Auto) % (1.0-10.0) Eosinophils (%) (Auto) % (0.0-3.0) Basophils (%) (Auto) % (0.0-2.0) Sodium Level 143 MMOL/L (136-145) Potassium Level 4.6 MMOL/L (3.5-5.1) Chloride Level 110 MMOL/L (98-107) H Carbon Dioxide Level 24 MMOL/L (21-32) Anion Gap 9 mmol/L (5-15) Blood Urea Nitrogen 26 mg/dL (7-18) H Creatinine 1.1 MG/DL (0.55-1.30) Estimat Glomerular Filtration Rate 47.9 mL/min (>60) Glucose Level 82 MG/DL (74-106) Calcium Level 9.0 MG/DL (8.5-10.1) Plan Problems: (1) Urinary tract infection (2) Hematuria (3) Hydronephrosis (4) Decubitus skin ulcer Assessment & Plan: Pt presented on admission with Non-blanching erythema without fluctuance L elbow. DTPI L Iliac. (L)1.5cm x (W)2.5cm. Base of wound is indurated and maroon in colour. No evidence of further skin breakdown periwound. Sacral hyperpigmentation from previous wound noted to Sacrum.Non-blanching erythema noted to sacrococcygeal are and cleft of buttocks. An area of hyperpigmentation noted to L trochanteric.Historical scar noted to L Hip. An area of hyperpigmentation noted to R trochanteric. Non-blanching erythema without fluctuance L elbow. Both heels are boggy with non-blanchable erythema. Tx.Plan:Apply Cavilon Skin Barrier to L Iliac. Cover with Optifoam drsg. Change every 7 days and prn. Apply Cavilon Skin Barrier to R and L trochanter. Cover each site with Optifoam drsg. Change every 7 days and prn. Apply Cavilon Skin Barrier to each heel. Cover each heel with Optifoam drsg. Change every 7 days and prn. Apply Moisture Barrier Paste to Sacrum. Cover with Optifoam drsg. Change every 3 days and prn. Reposition at least every 2hours or as tolerated. Off-load heels with pillow. APM/LEONARD Mattress overlay. DAILY ESTIMATED NEEDS: Needs based on Severely underweight, wounds/ 36kg 35-40 kcals/kg 0621-9815 total kcals 1.5-2 g protein/kg 54-72 g total protein 25-30 mL/kg 900-1080 total fluid mLs NUTRITION DIAGNOSIS: * Swallowing difficulty R/T dysphagia as evidenced by pt is PEG dep. * Increased kcal/prot needs R/T severely underweight status, wound heaing as evidenced by 76% IBW w/ BMI of 15.2, admitted w/ multiple wounds including non-blanching erythema at L elbow, sacrococcyx, BL heels, and DTPI at L Iliac, CURRENT TF:Jevity 1.2 @ 60ml/hr x 20 hrs ENTERAL NUTRITION RECOMMENDATIONS: Jevity 1.2 @ 60ml/hr x 20 hrs to provide 1200ml, 1440kcal, 66g prot, 968ml free water * Maintain [employer] TF order of Jevity 1.2- meets 100% est kcal/prot needs * HOB over 30 degrees/ water flush per MD --- With consistently elev BG, rec TF change to Glucerna 1.2 @ 60ml/hr x 20 hrs to meet 1440kcal, 72g prot ADDITIONAL RECOMMENDATIONS: * PER SNF: Ht=61" WT=80lbs * Monitor BGs, need for carb controlled TF and hypoglycemics : pt on Jevity 1.2 [employer], hyperglycemia x 1 on 12/24 (208) * Monitor lytes, replete as needed * Wound healing: add Vit C 500mg QD + Judson BID (5) Renal failure (6) Obstructive uropathy (7) Sepsis (8) GIB (gastrointestinal bleeding) Assessment & Plan: stable no active bleeding CT noted Liver: Unremarkable. Gallbladder and bile ducts: Unremarkable. No calcified stones. No ductal dilation. Pancreas: Unremarkable. No ductal dilation. Spleen: Unremarkable. No splenomegaly. Adrenals: Unremarkable. No mass. Kidneys and ureters: Bilateral nephrolithiasis. There is a 1.4 x 1.3 x 2.1 cm stone in the right renal pelvis. There is right hydronephrosis. Stomach and bowel: Unremarkable. No obstruction. No mucosal thickening. PELVIS: Appendix: The appendix is not identified Bladder: Unremarkable. No stones. Reproductive: Unremarkable as visualized. ABDOMEN and PELVIS: Intraperitoneal space: Unremarkable. No free air. No significant fluid collection. Bones/joints: No acute fracture. No dislocation. Soft tissues: Unremarkable. Vasculature: Unremarkable. No abdominal aortic aneurysm. Lymph nodes: Unremarkable. No enlarged lymph nodes. IMPRESSION: Right hydronephrosis with a 2.1 x 1.4 x 1.3 cm stone in the right renal pelvis. trend labs will monitor (9) Nephrolithiasis (10) Dehydration (11) HELENE (acute kidney injury) (12) Infection due to ESBL-producing Escherichia coli (13) Hemorrhagic cystitis (14) Schizophrenia (15) Altered mental status (16) HTN (hypertension) (17) Abnormal LFTs (18) Noncompliance Alistair Nieves Dec 29, 2019 10:29
--- NOTE | 2019-12-29 10:32 | Infectious Diseases Prog Note ---
Assessment/Plan Assessment/Plan antibiotics : meropenem A 1. e.coli esbl urinary tract infection. 2. Right-sided hydronephrosis with stone in the kidney. 3. Schizophrenia. 4. Bipolar disorder. 5. Hypertension. 6. COVID-19 negative P 1. continue meropenem 4 more days 2. will follow up cultures 3. d/c isolation Subjective ROS Limited/Unobtainable: Yes Allergies: Coded Allergies: MORPHINE (Verified Allergy, Unknown, 07/18/09) Objective Vital Signs Last 24 Hour Vital Signs Date Time Temp Pulse Resp B/P (MAP) Pulse Ox O2 Delivery O2 Flow Rate FiO2 12/29/19 09:29 66 133/67 12/29/19 08:00 98.6 66 20 133/67 (89) 94 12/29/19 04:10 97.5 67 19 125/67 (86) 96 12/29/19 00:00 97.8 66 18 116/50 (72) 97 12/28/19 21:00 Nasal Cannula 2.0 12/28/19 20:00 97.9 80 18 125/76 (92) 95 12/28/19 16:00 97.4 76 18 124/90 (101) 95 12/28/19 12:00 97.7 73 19 133/77 (95) 94 Height (Feet): 5 Height (Inches): 3.00 Weight (Pounds): 107 Respiratory/Chest: lungs clear Cardiovascular: normal rate, regular rhythm, no gallop/murmur Abdomen: soft, non tender Extremities: no edema Laboratory Tests Test 12/29/19 05:40 White Blood Count 7.7 K/UL (4.8-10.8) Red Blood Count 2.66 M/UL (4.20-5.40) L Hemoglobin 7.5 G/DL (12.0-16.0) L Hematocrit 22.8 % (37.0-47.0) L Mean Corpuscular Volume 86 FL (80-99) Mean Corpuscular Hemoglobin 28.1 PG (27.0-31.0) Mean Corpuscular Hemoglobin Concent 32.8 G/DL (32.0-36.0) Red Cell Distribution Width 14.2 % (11.6-14.8) Platelet Count 130 K/UL (150-450) L Mean Platelet Volume 7.2 FL (6.5-10.1) Neutrophils (%) (Auto) % (45.0-75.0) Lymphocytes (%) (Auto) % (20.0-45.0) Monocytes (%) (Auto) % (1.0-10.0) Eosinophils (%) (Auto) % (0.0-3.0) Basophils (%) (Auto) % (0.0-2.0) Sodium Level 143 MMOL/L (136-145) Potassium Level 4.6 MMOL/L (3.5-5.1) Chloride Level 110 MMOL/L (98-107) H Carbon Dioxide Level 24 MMOL/L (21-32) Anion Gap 9 mmol/L (5-15) Blood Urea Nitrogen 26 mg/dL (7-18) H Creatinine 1.1 MG/DL (0.55-1.30) Estimat Glomerular Filtration Rate 47.9 mL/min (>60) Glucose Level 82 MG/DL (74-106) Calcium Level 9.0 MG/DL (8.5-10.1) Current Medications Medications (Trade) Dose Ordered Sig/Marcos Route PRN Reason Start Time Stop Time Status Last Admin Dose Admin Acetaminophen (Tylenol) 650 mg Q4H PRN ORAL Temp >100.5 12/24/19 22:30 01/23/20 22:29 Al Hydroxide/Mg Hydroxide (Mylanta) 30 ml Q4HR PRN ORAL upset stomach 12/24/19 22:30 01/23/20 22:29 Amlodipine Besylate (Norvasc) 5 mg DAILY GT 12/25/19 09:00 01/24/20 08:59 12/29/19 09:29 Bisacodyl (Dulcolax) 10 mg DAILYPRN PRN RECTAL Constipation 12/25/19 00:15 03/24/20 00:14 Brimonidine Tartrate (Alphagan) 1 drop Q8HR BOTH EYES 12/25/19 14:00 03/24/20 13:59 12/29/19 05:14 Dextrose/Sodium Chloride 1,000 ml @ 50 mls/hr Q20H IV 12/29/19 09:21 01/28/20 09:20 12/29/19 09:31 Docusate Sodium (Colace) 100 mg TWICE A DAY GT 12/25/19 09:00 01/24/20 08:59 12/29/19 09:29 Meropenem 500 mg/ Sodium Chloride 55 ml @ 110 mls/hr Q12H IVPB 12/27/19 14:00 01/01/20 13:59 12/29/19 01:40 Multivitamins (Multivitamins W/ Minerals 15ml Liquid) 15 ml DAILY GT 12/25/19 09:00 01/24/20 08:59 12/29/19 09:29 Pantoprazole (Protonix) 40 mg DAILY@0630 ORAL 12/25/19 06:30 01/24/20 06:29 12/29/19 05:16 Polyethylene Glycol (Miralax) 17 gm BEDTIME ORAL 12/27/19 21:00 01/26/20 20:59 12/27/19 21:05 Lindsay Poole MD Dec 29, 2019 10:32
--- NOTE | 2019-12-29 11:04 | General Progress Note ---
Assessment/Plan Status: stable Assessment/Plan: 1. CVA. 2. Contractures. 3. Malnutrition. 4. Diabetes 5. Gastritis. 6. Hypertension. 7. Pneumonia. 8. Renal disease. 9. Schizophrenia. 10. Anemia stable H&H for 3 days stool ob positive on miralax GTF ppi daily no overt GIB plan GI procedures when off isolation will fu Subjective ROS Limited/Unobtainable: No Allergies: Coded Allergies: MORPHINE (Verified Allergy, Unknown, 07/18/09) Objective Last 24 Hour Vital Signs Date Time Temp Pulse Resp B/P (MAP) Pulse Ox O2 Delivery O2 Flow Rate FiO2 12/29/19 09:29 66 133/67 12/29/19 09:00 Nasal Cannula 2.0 12/29/19 08:00 98.6 66 20 133/67 (89) 94 12/29/19 04:10 97.5 67 19 125/67 (86) 96 12/29/19 00:00 97.8 66 18 116/50 (72) 97 12/28/19 21:00 Nasal Cannula 2.0 12/28/19 20:00 97.9 80 18 125/76 (92) 95 12/28/19 16:00 97.4 76 18 124/90 (101) 95 12/28/19 12:00 97.7 73 19 133/77 (95) 94 Intake and Output 12/28/19 12/29/19 19:00 07:00 Intake Total 730 ml Output Total 900 ml 900 ml Balance -170 ml -900 ml IV Total 730 ml Output Urine Total 900 ml 900 ml # Bowel Movements 5 Laboratory Tests 12/29/19 05:40: White Blood Count 7.7, Red Blood Count 2.66L, Hemoglobin 7.5L, Hematocrit 22.8L , Mean Corpuscular Volume 86, Mean Corpuscular Hemoglobin 28.1, Mean Corpuscular Hemoglobin Concent 32.8, Red Cell Distribution Width 14.2, Platelet Count 130L, Mean Platelet Volume 7.2, Neutrophils (%) (Auto) , Lymphocytes (%) ( Auto) , Monocytes (%) (Auto) , Eosinophils (%) (Auto) , Basophils (%) (Auto) , Sodium Level 143, Potassium Level 4.6, Chloride Level 110H, Carbon Dioxide Level 24, Anion Gap 9, Blood Urea Nitrogen 26H, Creatinine 1.1, Estimat Glomerular Filtration Rate 47.9, Glucose Level 82, Calcium Level 9.0 Height (Feet): 5 Height (Inches): 3.00 Weight (Pounds): 107 General Appearance: no apparent distress EENT: normal ENT inspection Neck: supple Cardiovascular: normal rate Respiratory/Chest: decreased breath sounds Abdomen: normal bowel sounds, non tender, soft Extremities: non-tender Oli Keyes MD Dec 29, 2019 11:04
--- NOTE | 2019-12-29 11:32 | Urology Progress Note ---
Assessment/Plan Status: stable Assessment/Plan: 1. Right-sided hydronephrosis which appears to be chronic. 2. Right-sided nephrolithiasis. 3. Urinary tract infection. 4. Hematuria. 5. Proteinuria. 6. Urinary retention. 7. Probable neurogenic bladder. monitor clinically abx as ordered canseco indwelling hand irrigated and do PRN voiding trial at some point tx of stone electively if feasible renal fxn stable may need blood transfusion Subjective Allergies: Coded Allergies: MORPHINE (Verified Allergy, Unknown, 07/18/09) Subjective all noted, confused, looks comfortable Objective Last 24 Hour Vital Signs Date Time Temp Pulse Resp B/P (MAP) Pulse Ox O2 Delivery O2 Flow Rate FiO2 12/29/19 09:29 66 133/67 12/29/19 09:00 Nasal Cannula 2.0 12/29/19 08:00 98.6 66 20 133/67 (89) 94 12/29/19 04:10 97.5 67 19 125/67 (86) 96 12/29/19 00:00 97.8 66 18 116/50 (72) 97 12/28/19 21:00 Nasal Cannula 2.0 12/28/19 20:00 97.9 80 18 125/76 (92) 95 12/28/19 16:00 97.4 76 18 124/90 (101) 95 12/28/19 12:00 97.7 73 19 133/77 (95) 94 Intake and Output 12/28/19 12/29/19 19:00 07:00 Intake Total 730 ml Output Total 900 ml 900 ml Balance -170 ml -900 ml IV Total 730 ml Output Urine Total 900 ml 900 ml # Bowel Movements 5 Microbiology Date/Time Source Procedure Growth Status 12/25/19 13:20 Nasopharynx Coronavirus COVID-19 PCR (JEREMY) - Final Complete 12/24/19 20:15 Urine,Clean Catch Urine Culture - Final Escherichia Coli - Esbl Complete 12/24/19 21:00 Rectum - Final NO CARBAPENEM-RESISTANT ENTEROBACTERI... Complete Current Medications Medications (Trade) Dose Ordered Sig/Marcos Route PRN Reason Start Time Stop Time Status Last Admin Dose Admin Acetaminophen (Tylenol) 650 mg Q4H PRN ORAL Temp >100.5 12/24/19 22:30 01/23/20 22:29 Al Hydroxide/Mg Hydroxide (Mylanta) 30 ml Q4HR PRN ORAL upset stomach 12/24/19 22:30 01/23/20 22:29 Amlodipine Besylate (Norvasc) 5 mg DAILY GT 12/25/19 09:00 01/24/20 08:59 12/29/19 09:29 Bisacodyl (Dulcolax) 10 mg DAILYPRN PRN RECTAL Constipation 12/25/19 00:15 03/24/20 00:14 Brimonidine Tartrate (Alphagan) 1 drop Q8HR BOTH EYES 12/25/19 14:00 03/24/20 13:59 12/29/19 05:14 Dextrose/Sodium Chloride 1,000 ml @ 50 mls/hr Q20H IV 12/29/19 09:21 01/28/20 09:20 12/29/19 09:31 Docusate Sodium (Colace) 100 mg TWICE A DAY GT 12/25/19 09:00 01/24/20 08:59 12/29/19 09:29 Meropenem 500 mg/ Sodium Chloride 55 ml @ 110 mls/hr Q12H IVPB 12/27/19 14:00 01/01/20 13:59 12/29/19 01:40 Multivitamins (Multivitamins W/ Minerals 15ml Liquid) 15 ml DAILY GT 12/25/19 09:00 01/24/20 08:59 12/29/19 09:29 Pantoprazole (Protonix) 40 mg DAILY@0630 ORAL 12/25/19 06:30 01/24/20 06:29 12/29/19 05:16 Polyethylene Glycol (Miralax) 17 gm BEDTIME ORAL 12/27/19 21:00 01/26/20 20:59 12/27/19 21:05 Laboratory Tests 12/29/19 05:40: White Blood Count 7.7, Red Blood Count 2.66L, Hemoglobin 7.5L, Hematocrit 22.8L , Mean Corpuscular Volume 86, Mean Corpuscular Hemoglobin 28.1, Mean Corpuscular Hemoglobin Concent 32.8, Red Cell Distribution Width 14.2, Platelet Count 130L, Mean Platelet Volume 7.2, Neutrophils (%) (Auto) , Lymphocytes (%) ( Auto) , Monocytes (%) (Auto) , Eosinophils (%) (Auto) , Basophils (%) (Auto) , Sodium Level 143, Potassium Level 4.6, Chloride Level 110H, Carbon Dioxide Level 24, Anion Gap 9, Blood Urea Nitrogen 26H, Creatinine 1.1, Estimat Glomerular Filtration Rate 47.9, Glucose Level 82, Calcium Level 9.0 Height (Feet): 5 Height (Inches): 3.00 Weight (Pounds): 107 Objective exam stable canseco indwelling, urine yellow with debris Ladarius Larios MD Dec 29, 2019 11:32
[2019-12-29 12:00] VITALS: BP 154/87
--- NOTE | 2019-12-29 15:01 | General Progress Note ---
Assessment/Plan Problem List: (1) GIB (gastrointestinal bleeding) ICD Codes: K92.2 - Gastrointestinal hemorrhage, unspecified SNOMED: 97566448 (2) Hydronephrosis ICD Codes: N13.30 - Unspecified hydronephrosis SNOMED: 47818443 (3) Decubitus skin ulcer ICD Codes: L89.90 - Pressure ulcer of unspecified site, unspecified stage SNOMED: 695692209 (4) Renal failure ICD Codes: N19 - Unspecified kidney failure SNOMED: 73469705 (5) Sepsis ICD Codes: A41.9 - Sepsis, unspecified organism SNOMED: 47039374 (6) Obstructive uropathy ICD Codes: N13.9 - Obstructive and reflux uropathy, unspecified SNOMED: 8293167 (7) Hematuria ICD Codes: R31.9 - Hematuria, unspecified SNOMED: 80231369 Status: stable Assessment/Plan: monitor for bleeding. cbc daily. iv ppi. GI and gu appreciated. stool ob positive but h/h stable without signs of bleeding. IV abx per id follow up cultures. covid- ?dc isolation- defer to id. monitor cxr. skin care. Possible endoscopy per GI. Tylenol for fever. Patient requires emergent transfusion. She has no responsible republican. Patient is too confused to consent. Patient is at risk for significant morbidity and mortality without transfusion. will transfuse emergently. Subjective ROS Limited/Unobtainable: No Constitutional: Reports: malaise, weakness HEENT: Reports: no symptoms Cardiovascular: Reports: no symptoms Respiratory: Reports: cough, shortness of breath Gastrointestinal/Abdominal: Reports: difficulty swallowing Genitourinary: Reports: no symptoms Neurologic/Psychiatric: Reports: anxiety Endocrine: Reports: no symptoms Hematologic/Lymphatic: Reports: anemia Allergies: Coded Allergies: MORPHINE (Verified Allergy, Unknown, 07/18/09) All Systems: reviewed and negative except above Subjective There have been no overnight events. No overt signs of bleeding noted. Hemoglobin is dropped down to 7.5. Remains on IV antibiotics for UTI. No hematuria or melena noted. Tolerating G-tube feedings. Confused at baseline. Objective Last 24 Hour Vital Signs Date Time Temp Pulse Resp B/P (MAP) Pulse Ox O2 Delivery O2 Flow Rate FiO2 12/29/19 13:09 98.4 12/29/19 12:00 100.6 79 20 154/87 (109) 94 12/29/19 09:29 66 133/67 12/29/19 09:00 Nasal Cannula 2.0 12/29/19 08:00 98.6 66 20 133/67 (89) 94 12/29/19 04:10 97.5 67 19 125/67 (86) 96 12/29/19 00:00 97.8 66 18 116/50 (72) 97 12/28/19 21:00 Nasal Cannula 2.0 12/28/19 20:00 97.9 80 18 125/76 (92) 95 12/28/19 16:00 97.4 76 18 124/90 (101) 95 Intake and Output 12/28/19 12/29/19 19:00 07:00 Intake Total 730 ml Output Total 900 ml 900 ml Balance -170 ml -900 ml IV Total 730 ml Output Urine Total 900 ml 900 ml # Bowel Movements 5 Laboratory Tests 12/29/19 05:40: White Blood Count 7.7, Red Blood Count 2.66L, Hemoglobin 7.5L, Hematocrit 22.8L , Mean Corpuscular Volume 86, Mean Corpuscular Hemoglobin 28.1, Mean Corpuscular Hemoglobin Concent 32.8, Red Cell Distribution Width 14.2, Platelet Count 130L, Mean Platelet Volume 7.2, Neutrophils (%) (Auto) , Lymphocytes (%) ( Auto) , Monocytes (%) (Auto) , Eosinophils (%) (Auto) , Basophils (%) (Auto) , Sodium Level 143, Potassium Level 4.6, Chloride Level 110H, Carbon Dioxide Level 24, Anion Gap 9, Blood Urea Nitrogen 26H, Creatinine 1.1, Estimat Glomerular Filtration Rate 47.9, Glucose Level 82, Calcium Level 9.0 Height (Feet): 5 Height (Inches): 3.00 Weight (Pounds): 107 Objective General Appearance: WD/WN, lethargic, confused, thin EENT: normal ENT inspection Neck: non-tender, normal alignment, supple Cardiovascular: normal peripheral pulses, normal rate, regular rhythm Respiratory/Chest: chest wall non-tender, lungs clear, normal breath sounds, no respiratory distress Abdomen: normal bowel sounds, non tender, soft, no organomegaly Edema: no edema noted Arm (L), no edema noted Arm (R), no edema noted Leg (L), no edema noted Leg (R), no edema noted Pedal (L), no edema noted Pedal (R), no edema noted Generalized Neurologic: alert, disoriented, unresponsive Skin: normal pigmentation Clayton Scales MD Dec 29, 2019 15:00
[2019-12-29 16:00] VITALS: BP 134/57
[2019-12-29 20:00] VITALS: BP 130/76
[2019-12-29] MEDS: Miralax 17gm pkt ORAL SCH (21:00)
[2019-12-30] VITALS (7 sets, daily range): BP systolic 100–137; BP diastolic 50–76
[2019-12-30] MEDS: Meropenem 500 MG in NS 55 ML IVPB SCH ×2 (02:34→14:18)
[2019-12-30] MEDS: D5 1/4NS 1000ml 1,000 ML IV SCH (04:47)
[2019-12-30] MEDS: Brimonidine 0.2% Opth Sol BOTH EYES SCH ×3 (05:17→21:45)
[2019-12-30 05:46] LABS: BASOPHILS % (AUTO) 0.7 % (0.0-2.0); EOSINOPHILS % (AUTO) 0.1 % (0.0-3.0); HEMOGLOBIN 9.1 G/DL (12.0-16.0); LYMPHOCYTES % (AUTO) 34.1 % (20.0-45.0); MEAN CORPUSCULAR VOLUME 85 FL (80-99); MONOCYTES % (AUTO) 6.9 % (1.0-10.0); NEUTROPHILS % (AUTO) 58.3 % (45.0-75.0); PLATELET COUNT 135 K/UL (150-450); RED BLOOD COUNT 3.19 M/UL (4.20-5.40); RED CELL DISTRIBUTION WIDTH 13.6 % (11.6-14.8)
[2019-12-30 07:44] LABS: ANION GAP 11 mmol/L (5-15); BLOOD UREA NITROGEN 26 mg/dL (7-18); CALCIUM 9.3 MG/DL (8.5-10.1); CARBON DIOXIDE 22 MMOL/L (21-32); CHLORIDE 107 MMOL/L (98-107); CREATININE 1.1 MG/DL (0.55-1.30); PHOSPHORUS 3.6 MG/DL (2.5-4.9); POTASSIUM 4.3 MMOL/L (3.5-5.1); SODIUM 140 MMOL/L (136-145)
[2019-12-30] MEDS: Docusate 100mg/10ml Liq GT SCH ×3 (08:23→18:00)
[2019-12-30] MEDS: Multivitamins W/Minerals 15 ML UDC GT SCH (08:23)
--- NOTE | 2019-12-30 08:58 | Pulmonology Progress Note ---
Assessment/Plan Assessment/Plan IMPRESSION: pneumonia, respiratory insufficiency history and evidence of aspiration, E coli UTI, right-sided hydronephrosis, schizophrenia, bipolar disorder, hypertension, rule out COVID, anemia, possible GI bleed. leukocytosis PLAN monitor as is isolation await COVID results aspiration precautions feed gi follow up monitor WBC ID clearance impression, plan, and exam edited and reviewed in detail care discussed with RN Subjective ROS Limited/Unobtainable: Yes Allergies: Coded Allergies: MORPHINE (Verified Allergy, Unknown, 07/18/09) All Systems: reviewed and negative except above Subjective care noted remains ill HH better in bed on feeds renal function better isolation / some congestion Objective Last 24 Hour Vital Signs Date Time Temp Pulse Resp B/P (MAP) Pulse Ox O2 Delivery O2 Flow Rate FiO2 12/30/19 08:23 68 137/61 12/30/19 08:00 98.5 68 20 137/61 (86) 94 12/30/19 04:00 99.7 69 19 128/76 (93) 97 12/30/19 00:00 98.8 84 20 132/75 (94) 96 12/29/19 21:37 99.5 12/29/19 21:00 Nasal Cannula 2.0 12/29/19 20:00 100.8 80 20 130/76 (94) 97 12/29/19 16:00 98.4 76 20 134/57 (82) 99 12/29/19 12:00 100.6 79 20 154/87 (109) 94 12/29/19 09:29 66 133/67 12/29/19 09:00 Nasal Cannula 2.0 Intake and Output 12/29/19 12/30/19 19:00 07:00 Intake Total 1370 ml 640 ml Output Total 650 ml Balance 1370 ml -10 ml Intake Free Water 200 ml 100 ml IV Total 510 ml Tube Feeding 660 ml 540 ml Output Urine Total 650 ml Objective GENERAL: An ill-appearing female, nonverbal. NECK: Supple. LUNGS: Moderate breath sounds and some rhonchi. CARDIAC: S1 and S2. Regular rate and rhythm. Soft systolic murmur left upper sternal border. No rubs or gallops. ABDOMEN: Soft, nontender. G-tube in place. EXTREMITIES: Significant contractures. No edema. Reduced skin turgor. NEUROLOGIC: Responds to painful stimuli x4. nonverbal reviewed and edited Abdomen: soft, non tender Extremities: no edema Microbiology Date/Time Source Procedure Growth Status 12/28/19 14:45 Nasopharynx Coronavirus COVID-19 PCR (JEREMY) - Final Complete Laboratory Tests 12/30/19 04:39: White Blood Count 13.0#H, Red Blood Count 3.19L, Hemoglobin 9.1L, Hematocrit 27.0L, Mean Corpuscular Volume 85, Mean Corpuscular Hemoglobin 28.4, Mean Corpuscular Hemoglobin Concent 33.5, Red Cell Distribution Width 13.6, Platelet Count 135L, Mean Platelet Volume 7.5, Neutrophils (%) (Auto) 58.3, Lymphocytes ( %) (Auto) 34.1, Monocytes (%) (Auto) 6.9, Eosinophils (%) (Auto) 0.1, Basophils (%) (Auto) 0.7, Sodium Level 140, Potassium Level 4.3, Chloride Level 107, Carbon Dioxide Level 22, Anion Gap 11, Blood Urea Nitrogen 26H, Creatinine 1.1, Estimat Glomerular Filtration Rate 47.9, Glucose Level 150H, Calcium Level 9.3, Phosphorus Level 3.6, Magnesium Level 2.2 Current Medications Medications (Trade) Dose Ordered Sig/Marcos Route PRN Reason Start Time Stop Time Status Last Admin Dose Admin Acetaminophen (Tylenol) 650 mg Q4H PRN ORAL Temp >100.5 12/24/19 22:30 01/23/20 22:29 12/29/19 21:07 Al Hydroxide/Mg Hydroxide (Mylanta) 30 ml Q4HR PRN ORAL upset stomach 12/24/19 22:30 01/23/20 22:29 Amlodipine Besylate (Norvasc) 5 mg DAILY GT 12/25/19 09:00 01/24/20 08:59 12/30/19 08:23 Bisacodyl (Dulcolax) 10 mg DAILYPRN PRN RECTAL Constipation 12/25/19 00:15 03/24/20 00:14 Brimonidine Tartrate (Alphagan) 1 drop Q8HR BOTH EYES 12/25/19 14:00 03/24/20 13:59 12/30/19 05:17 Dextrose/Sodium Chloride 1,000 ml @ 50 mls/hr Q20H IV 12/29/19 09:21 01/28/20 09:20 12/30/19 04:47 Docusate Sodium (Colace) 100 mg TWICE A DAY GT 12/25/19 09:00 01/24/20 08:59 12/30/19 08:23 Loperamide HCl (Imodium) 2 mg Q4H PRN ORAL Diarrhea 12/29/19 15:45 01/28/20 15:44 12/29/19 15:41 Meropenem 500 mg/ Sodium Chloride 55 ml @ 110 mls/hr Q12H IVPB 12/27/19 14:00 01/02/20 23:59 12/30/19 02:34 Multivitamins (Multivitamins W/ Minerals 15ml Liquid) 15 ml DAILY GT 12/25/19 09:00 01/24/20 08:59 12/30/19 08:23 Pantoprazole (Protonix) 40 mg DAILY@0630 ORAL 12/25/19 06:30 01/24/20 06:29 12/30/19 05:17 Polyethylene Glycol (Miralax) 17 gm BEDTIME ORAL 12/27/19 21:00 01/26/20 20:59 12/27/19 21:05 Ac Bernal MD Dec 30, 2019 08:58
--- NOTE | 2019-12-30 11:02 | General Progress Note ---
Assessment/Plan Problem List: (1) GIB (gastrointestinal bleeding) ICD Codes: K92.2 - Gastrointestinal hemorrhage, unspecified SNOMED: 64396733 (2) Hydronephrosis ICD Codes: N13.30 - Unspecified hydronephrosis SNOMED: 01192464 (3) Decubitus skin ulcer ICD Codes: L89.90 - Pressure ulcer of unspecified site, unspecified stage SNOMED: 928191403 (4) Renal failure ICD Codes: N19 - Unspecified kidney failure SNOMED: 84079839 (5) Sepsis ICD Codes: A41.9 - Sepsis, unspecified organism SNOMED: 73065824 (6) Obstructive uropathy ICD Codes: N13.9 - Obstructive and reflux uropathy, unspecified SNOMED: 0871429 (7) Hematuria ICD Codes: R31.9 - Hematuria, unspecified SNOMED: 81494743 Status: stable Assessment/Plan: monitor for bleeding. cbc daily. iv ppi. GI and gu appreciated. stool ob positive but h/h stable without signs of bleeding. IV abx per id follow up cultures. covid- ?dc isolation- defer to id. monitor cxr. skin care. Possible endoscopy per GI. Tylenol for fever. Subjective ROS Limited/Unobtainable: No Constitutional: Reports: malaise, weakness HEENT: Reports: no symptoms Cardiovascular: Reports: no symptoms Respiratory: Reports: cough Gastrointestinal/Abdominal: Reports: no symptoms Genitourinary: Reports: no symptoms Neurologic/Psychiatric: Reports: anxiety, emotional problems Endocrine: Reports: no symptoms Hematologic/Lymphatic: Reports: anemia Allergies: Coded Allergies: MORPHINE (Verified Allergy, Unknown, 07/18/09) All Systems: reviewed and negative except above Subjective There have been no overnight events. Patient was transfused 1 unit of packed red blood cells. Having some intermittent low-grade fever. No overt signs of bleedining. covid neg x 2. Remains on IV antibiotics for UTI. No hematuria or melena noted. Tolerating G-tube feedings. Confused at baseline. Objective Last 24 Hour Vital Signs Date Time Temp Pulse Resp B/P (MAP) Pulse Ox O2 Delivery O2 Flow Rate FiO2 12/30/19 08:23 68 137/61 12/30/19 08:00 98.5 68 20 137/61 (86) 94 12/30/19 04:00 99.7 69 19 128/76 (93) 97 12/30/19 00:00 98.8 84 20 132/75 (94) 96 12/29/19 21:37 99.5 12/29/19 21:00 Nasal Cannula 2.0 12/29/19 20:00 100.8 80 20 130/76 (94) 97 12/29/19 16:00 98.4 76 20 134/57 (82) 99 12/29/19 12:00 100.6 79 20 154/87 (109) 94 Intake and Output 12/29/19 12/30/19 19:00 07:00 Intake Total 1370 ml 640 ml Output Total 650 ml Balance 1370 ml -10 ml Intake Free Water 200 ml 100 ml IV Total 510 ml Tube Feeding 660 ml 540 ml Output Urine Total 650 ml Laboratory Tests 12/30/19 04:39: White Blood Count 13.0#H, Red Blood Count 3.19L, Hemoglobin 9.1L, Hematocrit 27.0L, Mean Corpuscular Volume 85, Mean Corpuscular Hemoglobin 28.4, Mean Corpuscular Hemoglobin Concent 33.5, Red Cell Distribution Width 13.6, Platelet Count 135L, Mean Platelet Volume 7.5, Neutrophils (%) (Auto) 58.3, Lymphocytes ( %) (Auto) 34.1, Monocytes (%) (Auto) 6.9, Eosinophils (%) (Auto) 0.1, Basophils (%) (Auto) 0.7, Sodium Level 140, Potassium Level 4.3, Chloride Level 107, Carbon Dioxide Level 22, Anion Gap 11, Blood Urea Nitrogen 26H, Creatinine 1.1, Estimat Glomerular Filtration Rate 47.9, Glucose Level 150H, Calcium Level 9.3, Phosphorus Level 3.6, Magnesium Level 2.2 Height (Feet): 5 Height (Inches): 3.00 Weight (Pounds): 107 Objective General Appearance: WD/WN, lethargic, confused, thin EENT: normal ENT inspection Neck: non-tender, normal alignment, supple Cardiovascular: normal peripheral pulses, normal rate, regular rhythm Respiratory/Chest: chest wall non-tender, lungs clear, normal breath sounds, no respiratory distress Abdomen: normal bowel sounds, non tender, soft, no organomegaly Edema: no edema noted Arm (L), no edema noted Arm (R), no edema noted Leg (L), no edema noted Leg (R), no edema noted Pedal (L), no edema noted Pedal (R), no edema noted Generalized Neurologic: alert, disoriented, unresponsive Skin: normal pigmentation Clayton Scales MD Dec 30, 2019 11:02
--- NOTE | 2019-12-30 11:14 | Urology Progress Note ---
Assessment/Plan Status: stable Assessment/Plan: 1. Right-sided hydronephrosis which appears to be chronic. 2. Right-sided nephrolithiasis. 3. Urinary tract infection. 4. Hematuria. 5. Proteinuria. 6. Urinary retention. 7. Probable neurogenic bladder. monitor clinically abx as ordered canseco indwelling hand irrigated and do PRN voiding trial at some point tx of stone electively if feasible renal fxn stable blood transfusion PRN consider nephrostomy Subjective Allergies: Coded Allergies: MORPHINE (Verified Allergy, Unknown, 07/18/09) Subjective all noted, confused, looks comfortable, transfused, low grade fever Objective Last 24 Hour Vital Signs Date Time Temp Pulse Resp B/P (MAP) Pulse Ox O2 Delivery O2 Flow Rate FiO2 12/30/19 08:23 68 137/61 12/30/19 08:00 98.5 68 20 137/61 (86) 94 12/30/19 04:00 99.7 69 19 128/76 (93) 97 12/30/19 00:00 98.8 84 20 132/75 (94) 96 12/29/19 21:37 99.5 12/29/19 21:00 Nasal Cannula 2.0 12/29/19 20:00 100.8 80 20 130/76 (94) 97 12/29/19 16:00 98.4 76 20 134/57 (82) 99 12/29/19 12:00 100.6 79 20 154/87 (109) 94 Intake and Output 12/29/19 12/30/19 19:00 07:00 Intake Total 1370 ml 640 ml Output Total 650 ml Balance 1370 ml -10 ml Intake Free Water 200 ml 100 ml IV Total 510 ml Tube Feeding 660 ml 540 ml Output Urine Total 650 ml Microbiology Date/Time Source Procedure Growth Status 12/28/19 14:45 Nasopharynx Coronavirus COVID-19 PCR (JEREMY) - Final Complete 12/24/19 20:15 Urine,Clean Catch Urine Culture - Final Escherichia Coli - Esbl Complete 12/24/19 21:00 Rectum - Final NO CARBAPENEM-RESISTANT ENTEROBACTERI... Complete Current Medications Medications (Trade) Dose Ordered Sig/Marcos Route PRN Reason Start Time Stop Time Status Last Admin Dose Admin Acetaminophen (Tylenol) 650 mg Q4H PRN ORAL Temp >100.5 12/24/19 22:30 01/23/20 22:29 12/29/19 21:07 Al Hydroxide/Mg Hydroxide (Mylanta) 30 ml Q4HR PRN ORAL upset stomach 12/24/19 22:30 01/23/20 22:29 Amlodipine Besylate (Norvasc) 5 mg DAILY GT 12/25/19 09:00 01/24/20 08:59 12/30/19 08:23 Bisacodyl (Dulcolax) 10 mg DAILYPRN PRN RECTAL Constipation 12/25/19 00:15 03/24/20 00:14 Brimonidine Tartrate (Alphagan) 1 drop Q8HR BOTH EYES 12/25/19 14:00 03/24/20 13:59 12/30/19 05:17 Dextrose/Sodium Chloride 1,000 ml @ 50 mls/hr Q20H IV 12/29/19 09:21 01/28/20 09:20 12/30/19 04:47 Docusate Sodium (Colace) 100 mg TWICE A DAY GT 12/25/19 09:00 01/24/20 08:59 12/30/19 08:23 Loperamide HCl (Imodium) 2 mg Q4H PRN ORAL Diarrhea 12/29/19 15:45 01/28/20 15:44 12/29/19 15:41 Meropenem 500 mg/ Sodium Chloride 55 ml @ 110 mls/hr Q12H IVPB 12/27/19 14:00 01/02/20 23:59 12/30/19 02:34 Multivitamins (Multivitamins W/ Minerals 15ml Liquid) 15 ml DAILY GT 12/25/19 09:00 01/24/20 08:59 12/30/19 08:23 Pantoprazole (Protonix) 40 mg DAILY@0630 ORAL 12/25/19 06:30 01/24/20 06:29 12/30/19 05:17 Polyethylene Glycol (Miralax) 17 gm BEDTIME ORAL 12/27/19 21:00 01/26/20 20:59 12/27/19 21:05 Laboratory Tests 12/30/19 04:39: White Blood Count 13.0#H, Red Blood Count 3.19L, Hemoglobin 9.1L, Hematocrit 27.0L, Mean Corpuscular Volume 85, Mean Corpuscular Hemoglobin 28.4, Mean Corpuscular Hemoglobin Concent 33.5, Red Cell Distribution Width 13.6, Platelet Count 135L, Mean Platelet Volume 7.5, Neutrophils (%) (Auto) 58.3, Lymphocytes ( %) (Auto) 34.1, Monocytes (%) (Auto) 6.9, Eosinophils (%) (Auto) 0.1, Basophils (%) (Auto) 0.7, Sodium Level 140, Potassium Level 4.3, Chloride Level 107, Carbon Dioxide Level 22, Anion Gap 11, Blood Urea Nitrogen 26H, Creatinine 1.1, Estimat Glomerular Filtration Rate 47.9, Glucose Level 150H, Calcium Level 9.3, Phosphorus Level 3.6, Magnesium Level 2.2 Height (Feet): 5 Height (Inches): 3.00 Weight (Pounds): 107 Objective exam stable canseco indwelling, urine yellow with debris Ladarius Larios MD Dec 30, 2019 11:14
--- NOTE | 2019-12-30 11:28 | General Progress Note ---
Assessment/Plan Status: stable Assessment/Plan: 1. CVA. 2. Contractures. 3. Malnutrition. 4. Diabetes 5. Gastritis. 6. Hypertension. 7. Pneumonia. 8. Renal disease. 9. Schizophrenia. 10. Anemia stable H&H for 3 days stool ob positive on miralax GTF ppi daily no overt GIB s/p one unit prbc patient off of isolation now no family member available for consent plan repeat stool ob and CBC consider emergency consent and GI procedures if needed Subjective ROS Limited/Unobtainable: No Allergies: Coded Allergies: MORPHINE (Verified Allergy, Unknown, 07/18/09) Objective Last 24 Hour Vital Signs Date Time Temp Pulse Resp B/P (MAP) Pulse Ox O2 Delivery O2 Flow Rate FiO2 12/30/19 09:00 Nasal Cannula 2.0 12/30/19 08:23 68 137/61 12/30/19 08:00 98.5 68 20 137/61 (86) 94 12/30/19 04:00 99.7 69 19 128/76 (93) 97 12/30/19 00:00 98.8 84 20 132/75 (94) 96 12/29/19 21:37 99.5 12/29/19 21:00 Nasal Cannula 2.0 12/29/19 20:00 100.8 80 20 130/76 (94) 97 12/29/19 16:00 98.4 76 20 134/57 (82) 99 12/29/19 12:00 100.6 79 20 154/87 (109) 94 Intake and Output 12/29/19 12/30/19 19:00 07:00 Intake Total 1370 ml 640 ml Output Total 650 ml Balance 1370 ml -10 ml Intake Free Water 200 ml 100 ml IV Total 510 ml Tube Feeding 660 ml 540 ml Output Urine Total 650 ml Laboratory Tests 12/30/19 04:39: White Blood Count 13.0#H, Red Blood Count 3.19L, Hemoglobin 9.1L, Hematocrit 27.0L, Mean Corpuscular Volume 85, Mean Corpuscular Hemoglobin 28.4, Mean Corpuscular Hemoglobin Concent 33.5, Red Cell Distribution Width 13.6, Platelet Count 135L, Mean Platelet Volume 7.5, Neutrophils (%) (Auto) 58.3, Lymphocytes ( %) (Auto) 34.1, Monocytes (%) (Auto) 6.9, Eosinophils (%) (Auto) 0.1, Basophils (%) (Auto) 0.7, Sodium Level 140, Potassium Level 4.3, Chloride Level 107, Carbon Dioxide Level 22, Anion Gap 11, Blood Urea Nitrogen 26H, Creatinine 1.1, Estimat Glomerular Filtration Rate 47.9, Glucose Level 150H, Calcium Level 9.3, Phosphorus Level 3.6, Magnesium Level 2.2 Height (Feet): 5 Height (Inches): 3.00 Weight (Pounds): 107 General Appearance: no apparent distress EENT: normal ENT inspection Neck: supple Cardiovascular: normal rate Respiratory/Chest: decreased breath sounds Abdomen: normal bowel sounds, non tender, soft Extremities: non-tender Oli Keyes MD Dec 30, 2019 11:28
--- NOTE | 2019-12-30 13:20 | Infectious Diseases Prog Note ---
Assessment/Plan Assessment/Plan A 1. E.coli esbl urinary tract infection. 2. Right-sided hydronephrosis with stone in the kidney. 3. Schizophrenia. 4. Bipolar disorder. 5. Hypertension. 6. 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 Anemia P 1. continue meropenem 3 more days 2. will follow up cultures Subjective ROS Limited/Unobtainable: Yes Constitutional: Reports: fever, other - last night Allergies: Coded Allergies: MORPHINE (Verified Allergy, Unknown, 07/18/09) Objective Vital Signs Last 24 Hour Vital Signs Date Time Temp Pulse Resp B/P (MAP) Pulse Ox O2 Delivery O2 Flow Rate FiO2 12/30/19 12:00 98.2 64 19 111/65 (80) 96 12/30/19 09:00 Nasal Cannula 2.0 12/30/19 08:23 68 137/61 12/30/19 08:00 98.5 68 20 137/61 (86) 94 12/30/19 04:00 99.7 69 19 128/76 (93) 97 12/30/19 00:00 98.8 84 20 132/75 (94) 96 12/29/19 21:37 99.5 12/29/19 21:00 Nasal Cannula 2.0 12/29/19 20:00 100.8 80 20 130/76 (94) 97 12/29/19 16:00 98.4 76 20 134/57 (82) 99 Height (Feet): 5 Height (Inches): 3.00 Weight (Pounds): 107 General Appearance: no acute distress HEENT: other - dry mouth, poor dentition Respiratory/Chest: lungs clear Cardiovascular: normal rate Abdomen: soft, non tender, other - GT feeding Extremities: no edema Neurologic/Psychiatric: unresponsiveness Microbiology Date/Time Source Procedure Growth Status 12/28/19 14:45 Nasopharynx Coronavirus COVID-19 PCR (JEREMY) - Final Complete Laboratory Tests Test 12/30/19 04:39 White Blood Count 13.0 K/UL (4.8-10.8) #H Red Blood Count 3.19 M/UL (4.20-5.40) L Hemoglobin 9.1 G/DL (12.0-16.0) L Hematocrit 27.0 % (37.0-47.0) L Mean Corpuscular Volume 85 FL (80-99) Mean Corpuscular Hemoglobin 28.4 PG (27.0-31.0) Mean Corpuscular Hemoglobin Concent 33.5 G/DL (32.0-36.0) Red Cell Distribution Width 13.6 % (11.6-14.8) Platelet Count 135 K/UL (150-450) L Mean Platelet Volume 7.5 FL (6.5-10.1) Neutrophils (%) (Auto) 58.3 % (45.0-75.0) Lymphocytes (%) (Auto) 34.1 % (20.0-45.0) Monocytes (%) (Auto) 6.9 % (1.0-10.0) Eosinophils (%) (Auto) 0.1 % (0.0-3.0) Basophils (%) (Auto) 0.7 % (0.0-2.0) Sodium Level 140 MMOL/L (136-145) Potassium Level 4.3 MMOL/L (3.5-5.1) Chloride Level 107 MMOL/L (98-107) Carbon Dioxide Level 22 MMOL/L (21-32) Anion Gap 11 mmol/L (5-15) Blood Urea Nitrogen 26 mg/dL (7-18) H Creatinine 1.1 MG/DL (0.55-1.30) Estimat Glomerular Filtration Rate 47.9 mL/min (>60) Glucose Level 150 MG/DL (74-106) H Calcium Level 9.3 MG/DL (8.5-10.1) Phosphorus Level 3.6 MG/DL (2.5-4.9) Magnesium Level 2.2 MG/DL (1.8-2.4) Current Medications Medications (Trade) Dose Ordered Sig/Marcos Route PRN Reason Start Time Stop Time Status Last Admin Dose Admin Acetaminophen (Tylenol) 650 mg Q4H PRN ORAL Temp >100.5 12/24/19 22:30 01/23/20 22:29 12/29/19 21:07 Al Hydroxide/Mg Hydroxide (Mylanta) 30 ml Q4HR PRN ORAL upset stomach 12/24/19 22:30 01/23/20 22:29 Amlodipine Besylate (Norvasc) 5 mg DAILY GT 12/25/19 09:00 01/24/20 08:59 12/30/19 08:23 Bisacodyl (Dulcolax) 10 mg DAILYPRN PRN RECTAL Constipation 12/25/19 00:15 03/24/20 00:14 Brimonidine Tartrate (Alphagan) 1 drop Q8HR BOTH EYES 12/25/19 14:00 03/24/20 13:59 12/30/19 05:17 Dextrose/Sodium Chloride 1,000 ml @ 50 mls/hr Q20H IV 12/29/19 09:21 01/28/20 09:20 12/30/19 04:47 Docusate Sodium (Colace) 100 mg TWICE A DAY GT 12/25/19 09:00 01/24/20 08:59 12/30/19 08:23 Loperamide HCl (Imodium) 2 mg Q4H PRN ORAL Diarrhea 12/29/19 15:45 01/28/20 15:44 12/29/19 15:41 Meropenem 500 mg/ Sodium Chloride 55 ml @ 110 mls/hr Q12H IVPB 12/27/19 14:00 01/02/20 23:59 12/30/19 02:34 Multivitamins (Multivitamins W/ Minerals 15ml Liquid) 15 ml DAILY GT 12/25/19 09:00 01/24/20 08:59 12/30/19 08:23 Pantoprazole (Protonix) 40 mg DAILY@0630 ORAL 12/25/19 06:30 01/24/20 06:29 12/30/19 05:17 Polyethylene Glycol (Miralax) 17 gm BEDTIME ORAL 12/27/19 21:00 01/26/20 20:59 12/27/19 21:05 Jacobo Seals MD Dec 30, 2019 13:20
--- NOTE | 2019-12-30 15:23 | Surgery Progress Note ---
Surgery Progress Note Subjective Additional Comments no acute events comfortable stable labs noted Objective Last 24 Hour Vital Signs Date Time Temp Pulse Resp B/P (MAP) Pulse Ox O2 Delivery O2 Flow Rate FiO2 12/30/19 12:00 98.2 64 19 111/65 (80) 96 12/30/19 09:00 Nasal Cannula 2.0 12/30/19 08:23 68 137/61 12/30/19 08:00 98.5 68 20 137/61 (86) 94 12/30/19 04:00 99.7 69 19 128/76 (93) 97 12/30/19 00:00 98.8 84 20 132/75 (94) 96 12/29/19 21:37 99.5 12/29/19 21:00 Nasal Cannula 2.0 12/29/19 20:00 100.8 80 20 130/76 (94) 97 12/29/19 16:00 98.4 76 20 134/57 (82) 99 I&O Intake and Output 12/29/19 12/30/19 19:00 07:00 Intake Total 1370 ml 690 ml Output Total 650 ml Balance 1370 ml 40 ml Intake Free Water 200 ml 100 ml IV Total 510 ml 50 ml Tube Feeding 660 ml 540 ml Output Urine Total 650 ml Cardiovascular: RSR Respiratory: decreased breath sounds Abdomen: soft, non-tender, present bowel sounds Extremities: no tenderness, no cyanosis Laboratory Tests Test 12/30/19 04:39 White Blood Count 13.0 K/UL (4.8-10.8) #H Red Blood Count 3.19 M/UL (4.20-5.40) L Hemoglobin 9.1 G/DL (12.0-16.0) L Hematocrit 27.0 % (37.0-47.0) L Mean Corpuscular Volume 85 FL (80-99) Mean Corpuscular Hemoglobin 28.4 PG (27.0-31.0) Mean Corpuscular Hemoglobin Concent 33.5 G/DL (32.0-36.0) Red Cell Distribution Width 13.6 % (11.6-14.8) Platelet Count 135 K/UL (150-450) L Mean Platelet Volume 7.5 FL (6.5-10.1) Neutrophils (%) (Auto) 58.3 % (45.0-75.0) Lymphocytes (%) (Auto) 34.1 % (20.0-45.0) Monocytes (%) (Auto) 6.9 % (1.0-10.0) Eosinophils (%) (Auto) 0.1 % (0.0-3.0) Basophils (%) (Auto) 0.7 % (0.0-2.0) Sodium Level 140 MMOL/L (136-145) Potassium Level 4.3 MMOL/L (3.5-5.1) Chloride Level 107 MMOL/L (98-107) Carbon Dioxide Level 22 MMOL/L (21-32) Anion Gap 11 mmol/L (5-15) Blood Urea Nitrogen 26 mg/dL (7-18) H Creatinine 1.1 MG/DL (0.55-1.30) Estimat Glomerular Filtration Rate 47.9 mL/min (>60) Glucose Level 150 MG/DL (74-106) H Calcium Level 9.3 MG/DL (8.5-10.1) Phosphorus Level 3.6 MG/DL (2.5-4.9) Magnesium Level 2.2 MG/DL (1.8-2.4) Plan Problems: (1) Urinary tract infection (2) Hematuria (3) Hydronephrosis (4) Decubitus skin ulcer Assessment & Plan: Pt presented on admission with Non-blanching erythema without fluctuance L elbow. DTPI L Iliac. (L)1.5cm x (W)2.5cm. Base of wound is indurated and maroon in colour. No evidence of further skin breakdown periwound. Sacral hyperpigmentation from previous wound noted to Sacrum.Non-blanching erythema noted to sacrococcygeal are and cleft of buttocks. An area of hyperpigmentation noted to L trochanteric.Historical scar noted to L Hip. An area of hyperpigmentation noted to R trochanteric. Non-blanching erythema without fluctuance L elbow. Both heels are boggy with non-blanchable erythema. Tx.Plan:Apply Cavilon Skin Barrier to L Iliac. Cover with Optifoam drsg. Change every 7 days and prn. Apply Cavilon Skin Barrier to R and L trochanter. Cover each site with Optifoam drsg. Change every 7 days and prn. Apply Cavilon Skin Barrier to each heel. Cover each heel with Optifoam drsg. Change every 7 days and prn. Apply Moisture Barrier Paste to Sacrum. Cover with Optifoam drsg. Change every 3 days and prn. Reposition at least every 2hours or as tolerated. Off-load heels with pillow. APM/LEONARD Mattress overlay. DAILY ESTIMATED NEEDS: Needs based on Severely underweight, wounds/ 36kg 35-40 kcals/kg 5375-8746 total kcals 1.5-2 g protein/kg 54-72 g total protein 25-30 mL/kg 900-1080 total fluid mLs NUTRITION DIAGNOSIS: * Swallowing difficulty R/T dysphagia as evidenced by pt is PEG dep. * Increased kcal/prot needs R/T severely underweight status, wound heaing as evidenced by 76% IBW w/ BMI of 15.2, admitted w/ multiple wounds including non-blanching erythema at L elbow, sacrococcyx, BL heels, and DTPI at L Iliac, CURRENT TF:Jevity 1.2 @ 60ml/hr x 20 hrs ENTERAL NUTRITION RECOMMENDATIONS: Jevity 1.2 @ 60ml/hr x 20 hrs to provide 1200ml, 1440kcal, 66g prot, 968ml free water * Maintain PATCH FINISHER TF order of Jevity 1.2- meets 100% est kcal/prot needs * HOB over 30 degrees/ water flush per MD --- With consistently elev BG, rec TF change to Glucerna 1.2 @ 60ml/hr x 20 hrs to meet 1440kcal, 72g prot ADDITIONAL RECOMMENDATIONS: * PER SNF: Ht=61" WT=80lbs * Monitor BGs, need for carb controlled TF and hypoglycemics : pt on Jevity 1.2 PATCH FINISHER, hyperglycemia x 1 on 12/24 (208) * Monitor lytes, replete as needed * Wound healing: add Vit C 500mg QD + Judson BID (5) Renal failure (6) Obstructive uropathy (7) Sepsis (8) GIB (gastrointestinal bleeding) Assessment & Plan: stable no active bleeding CT noted Liver: Unremarkable. Gallbladder and bile ducts: Unremarkable. No calcified stones. No ductal dilation. Pancreas: Unremarkable. No ductal dilation. Spleen: Unremarkable. No splenomegaly. Adrenals: Unremarkable. No mass. Kidneys and ureters: Bilateral nephrolithiasis. There is a 1.4 x 1.3 x 2.1 cm stone in the right renal pelvis. There is right hydronephrosis. Stomach and bowel: Unremarkable. No obstruction. No mucosal thickening. PELVIS: Appendix: The appendix is not identified Bladder: Unremarkable. No stones. Reproductive: Unremarkable as visualized. ABDOMEN and PELVIS: Intraperitoneal space: Unremarkable. No free air. No significant fluid collection. Bones/joints: No acute fracture. No dislocation. Soft tissues: Unremarkable. Vasculature: Unremarkable. No abdominal aortic aneurysm. Lymph nodes: Unremarkable. No enlarged lymph nodes. IMPRESSION: Right hydronephrosis with a 2.1 x 1.4 x 1.3 cm stone in the right renal pelvis. trend labs will monitor (9) Nephrolithiasis (10) Dehydration (11) HELENE (acute kidney injury) (12) Infection due to ESBL-producing Escherichia coli (13) Hemorrhagic cystitis (14) Schizophrenia (15) Altered mental status (16) HTN (hypertension) (17) Abnormal LFTs (18) Noncompliance Alistair Nieves Dec 30, 2019 15:23
--- NOTE | 2019-12-30 19:57 | Nephrology Progress Note ---
Assessment/Plan Problem List: (1) Hydronephrosis (2) Hematuria (3) Nephrolithiasis (4) Obstructive uropathy (5) Dehydration (6) HELENE (acute kidney injury) (7) Infection due to ESBL-producing Escherichia coli Plan continue hydration, urine clearing Subjective ROS Limited/Unobtainable: Yes Objective Objective Last 24 Hour Vital Signs Date Time Temp Pulse Resp B/P (MAP) Pulse Ox O2 Delivery O2 Flow Rate FiO2 12/30/19 16:00 98.8 64 20 100/62 (75) 93 12/30/19 12:00 98.2 64 19 111/65 (80) 96 12/30/19 09:00 Nasal Cannula 2.0 12/30/19 08:23 68 137/61 12/30/19 08:00 98.5 68 20 137/61 (86) 94 12/30/19 04:00 99.7 69 19 128/76 (93) 97 12/30/19 00:00 98.8 84 20 132/75 (94) 96 12/29/19 21:37 99.5 12/29/19 21:00 Nasal Cannula 2.0 12/29/19 20:00 100.8 80 20 130/76 (94) 97 Intake and Output 12/29/19 12/30/19 19:00 07:00 Intake Total 1370 ml 690 ml Output Total 650 ml Balance 1370 ml 40 ml Intake Free Water 200 ml 100 ml IV Total 510 ml 50 ml Tube Feeding 660 ml 540 ml Output Urine Total 650 ml Laboratory Tests 12/30/19 04:39: White Blood Count 13.0#H, Red Blood Count 3.19L, Hemoglobin 9.1L, Hematocrit 27.0L, Mean Corpuscular Volume 85, Mean Corpuscular Hemoglobin 28.4, Mean Corpuscular Hemoglobin Concent 33.5, Red Cell Distribution Width 13.6, Platelet Count 135L, Mean Platelet Volume 7.5, Neutrophils (%) (Auto) 58.3, Lymphocytes ( %) (Auto) 34.1, Monocytes (%) (Auto) 6.9, Eosinophils (%) (Auto) 0.1, Basophils (%) (Auto) 0.7, Sodium Level 140, Potassium Level 4.3, Chloride Level 107, Carbon Dioxide Level 22, Anion Gap 11, Blood Urea Nitrogen 26H, Creatinine 1.1, Estimat Glomerular Filtration Rate 47.9, Glucose Level 150H, Calcium Level 9.3, Phosphorus Level 3.6, Magnesium Level 2.2 12/30/19 17:00: Stool Occult Blood [Pending] Height (Feet): 5 Height (Inches): 3.00 Weight (Pounds): 107 General Appearance: confused EENT: normal ENT inspection Neck: normal alignment Cardiovascular: regular rhythm Respiratory/Chest: lungs clear Abdomen: non tender Extremities: no edema Neurologic: motor weakness, disoriented Objective less hematuria, continue hydration,iv rate reduced atb per ID García Alcaraz MD Dec 30, 2019 19:57
[2019-12-30] MEDS: Miralax 17gm pkt ORAL SCH (20:23)
[2019-12-31] MEDS: D5 1/4NS 1000ml 1,000 ML IV SCH ×2 (01:31→21:43)
[2019-12-31] MEDS: Meropenem 500 MG in NS 55 ML IVPB SCH ×2 (01:31→13:02)
[2019-12-31 04:00] VITALS: BP 104/64
[2019-12-31] MEDS: Brimonidine 0.2% Opth Sol BOTH EYES SCH ×3 (05:47→21:43)
[2019-12-31 08:00] VITALS: BP 120/55
--- NOTE | 2019-12-31 08:34 | General Progress Note ---
Assessment/Plan Problem List: (1) GIB (gastrointestinal bleeding) ICD Codes: K92.2 - Gastrointestinal hemorrhage, unspecified SNOMED: 42910322 (2) Hydronephrosis ICD Codes: N13.30 - Unspecified hydronephrosis SNOMED: 64477050 (3) Decubitus skin ulcer ICD Codes: L89.90 - Pressure ulcer of unspecified site, unspecified stage SNOMED: 925235289 (4) Renal failure ICD Codes: N19 - Unspecified kidney failure SNOMED: 09712575 (5) Sepsis ICD Codes: A41.9 - Sepsis, unspecified organism SNOMED: 04134560 (6) Obstructive uropathy ICD Codes: N13.9 - Obstructive and reflux uropathy, unspecified SNOMED: 7699049 (7) Hematuria ICD Codes: R31.9 - Hematuria, unspecified SNOMED: 72041066 Status: stable Assessment/Plan: monitor for bleeding. cbc daily. iv ppi. GI and gu appreciated. stool ob positive but h/h stable without signs of bleeding. IV abx per id follow up cultures. covid- ?dc isolation- defer to id. monitor cxr. skin care. Possible endoscopy per GI. Tylenol for fever. Subjective ROS Limited/Unobtainable: Yes Constitutional: Reports: malaise, weakness HEENT: Reports: no symptoms Cardiovascular: Reports: no symptoms Respiratory: Reports: cough, shortness of breath Gastrointestinal/Abdominal: Reports: difficulty swallowing Genitourinary: Reports: no symptoms Neurologic/Psychiatric: Reports: depressed Endocrine: Reports: no symptoms Hematologic/Lymphatic: Reports: anemia Allergies: Coded Allergies: MORPHINE (Verified Allergy, Unknown, 07/18/09) All Systems: reviewed and negative except above Subjective no overnight events. no fevers or chills. No overt signs of bleedining. covid neg x 2. Remains on IV antibiotics for UTI. No hematuria or melena noted. Tolerating G-tube feedings. Confused at baseline. Objective Last 24 Hour Vital Signs Date Time Temp Pulse Resp B/P (MAP) Pulse Ox O2 Delivery O2 Flow Rate FiO2 12/31/19 04:00 98.9 68 20 104/64 (77) 94 12/30/19 23:46 98.7 67 20 100/51 (67) 98 12/30/19 21:13 Nasal Cannula 2.0 12/30/19 20:00 98.9 64 20 105/50 (68) 98 12/30/19 16:00 98.8 64 20 100/62 (75) 93 12/30/19 12:00 98.2 64 19 111/65 (80) 96 12/30/19 09:00 Nasal Cannula 2.0 Intake and Output 12/30/19 12/31/19 19:00 07:00 Intake Total 1580 ml 640 ml Output Total 925 ml 1000 ml Balance 655 ml -360 ml Intake Free Water 200 ml 100 ml IV Total 660 ml Tube Feeding 720 ml 540 ml Output Urine Total 925 ml 1000 ml # Voids 1 # Bowel Movements 4 Laboratory Tests 12/30/19 17:00: Stool Occult Blood [Pending] Height (Feet): 5 Height (Inches): 3.00 Weight (Pounds): 107 Objective General Appearance: WD/WN, lethargic, confused, thin EENT: normal ENT inspection Neck: non-tender, normal alignment, supple Cardiovascular: normal peripheral pulses, normal rate, regular rhythm Respiratory/Chest: chest wall non-tender, lungs clear, normal breath sounds, no respiratory distress Abdomen: normal bowel sounds, non tender, soft, no organomegaly Edema: no edema noted Arm (L), no edema noted Arm (R), no edema noted Leg (L), no edema noted Leg (R), no edema noted Pedal (L), no edema noted Pedal (R), no edema noted Generalized Neurologic: alert, disoriented, unresponsive Skin: normal pigmentation Clayton Scales MD Dec 31, 2019 08:34
--- NOTE | 2019-12-31 08:44 | Pulmonology Progress Note ---
Assessment/Plan Assessment/Plan IMPRESSION: pneumonia, respiratory insufficiency history and evidence of aspiration, E coli UTI, right-sided hydronephrosis, schizophrenia, bipolar disorder, hypertension, rule out COVID, anemia, possible GI bleed. leukocytosis PLAN monitor imaging isolation cultures noted aspiration precautions feed gi follow up for possible EGD monitor WBC ID clearance impression, plan, and exam edited and reviewed in detail care discussed with RN Subjective ROS Limited/Unobtainable: Yes Constitutional: Reports: fever, other - last night Allergies: Coded Allergies: MORPHINE (Verified Allergy, Unknown, 07/18/09) All Systems: reviewed and negative except above Subjective care noted remains ill possible EGD on feeds renal function noted isolation / some congestion Objective Last 24 Hour Vital Signs Date Time Temp Pulse Resp B/P (MAP) Pulse Ox O2 Delivery O2 Flow Rate FiO2 12/31/19 04:00 98.9 68 20 104/64 (77) 94 12/30/19 23:46 98.7 67 20 100/51 (67) 98 12/30/19 21:13 Nasal Cannula 2.0 12/30/19 20:00 98.9 64 20 105/50 (68) 98 12/30/19 16:00 98.8 64 20 100/62 (75) 93 12/30/19 12:00 98.2 64 19 111/65 (80) 96 12/30/19 09:00 Nasal Cannula 2.0 Intake and Output 12/30/19 12/31/19 19:00 07:00 Intake Total 1580 ml 640 ml Output Total 925 ml 1000 ml Balance 655 ml -360 ml Intake Free Water 200 ml 100 ml IV Total 660 ml Tube Feeding 720 ml 540 ml Output Urine Total 925 ml 1000 ml # Voids 1 # Bowel Movements 4 Objective GENERAL: An ill-appearing female, nonverbal. NECK: Supple. LUNGS: Moderate breath sounds and some rhonchi. CARDIAC: S1 and S2. Regular rate and rhythm. Soft systolic murmur left upper sternal border. No rubs or gallops. ABDOMEN: Soft, nontender. G-tube in place. EXTREMITIES: Significant contractures. No edema. Reduced skin turgor. NEUROLOGIC: Responds to painful stimuli x4. nonverbal reviewed and edited General Appearance: no acute distress HEENT: other - dry mouth, poor dentition Abdomen: soft, non tender, other - GT feeding Extremities: no edema Neurologic/Psychiatric: unresponsiveness Microbiology Date/Time Source Procedure Growth Status 12/28/19 14:45 Nasopharynx Coronavirus COVID-19 PCR ([facility]) - Final Complete Laboratory Tests 12/30/19 17:00: Stool Occult Blood [Pending] Current Medications Medications (Trade) Dose Ordered Sig/Marcos Route PRN Reason Start Time Stop Time Status Last Admin Dose Admin Acetaminophen (Tylenol) 650 mg Q4H PRN ORAL Temp >100.5 12/24/19 22:30 01/23/20 22:29 12/29/19 21:07 Al Hydroxide/Mg Hydroxide (Mylanta) 30 ml Q4HR PRN ORAL upset stomach 12/24/19 22:30 01/23/20 22:29 Amlodipine Besylate (Norvasc) 5 mg DAILY GT 12/25/19 09:00 01/24/20 08:59 12/30/19 08:23 Bisacodyl (Dulcolax) 10 mg DAILYPRN PRN RECTAL Constipation 12/25/19 00:15 03/24/20 00:14 Brimonidine Tartrate (Alphagan) 1 drop Q8HR BOTH EYES 12/25/19 14:00 03/24/20 13:59 12/31/19 05:47 Dextrose/Sodium Chloride 1,000 ml @ 50 mls/hr Q20H IV 12/29/19 09:21 01/28/20 09:20 12/31/19 01:31 Docusate Sodium (Colace) 100 mg TWICE A DAY GT 12/25/19 09:00 01/24/20 08:59 12/30/19 08:23 Loperamide HCl (Imodium) 2 mg Q4H PRN ORAL Diarrhea 12/29/19 15:45 01/28/20 15:44 12/29/19 15:41 Meropenem 500 mg/ Sodium Chloride 55 ml @ 110 mls/hr Q12H IVPB 12/27/19 14:00 01/02/20 23:59 12/31/19 01:31 Multivitamins (Multivitamins W/ Minerals 15ml Liquid) 15 ml DAILY GT 12/25/19 09:00 01/24/20 08:59 12/30/19 08:23 Pantoprazole (Protonix) 40 mg DAILY@0630 ORAL 12/25/19 06:30 01/24/20 06:29 12/31/19 05:47 Polyethylene Glycol (Miralax) 17 gm BEDTIME ORAL 12/27/19 21:00 01/26/20 20:59 12/27/19 21:05 Ac Bernal MD Dec 31, 2019 08:44
[2019-12-31] MEDS: Multivitamins W/Minerals 15 ML UDC GT SCH (08:50)
[2019-12-31] MEDS: Docusate 100mg/10ml Liq GT SCH ×2 (08:50→18:00)
[2019-12-31 10:25] LABS: BASOPHILS % (AUTO) 0.7 % (0.0-2.0); EOSINOPHILS % (AUTO) 0.4 % (0.0-3.0); HEMATOCRIT 29.6 % (37.0-47.0); HEMOGLOBIN 9.7 G/DL (12.0-16.0); LYMPHOCYTES % (AUTO) 46.6 % (20.0-45.0); MEAN CORPUSCULAR VOLUME 86 FL (80-99); MONOCYTES % (AUTO) 5.2 % (1.0-10.0); NEUTROPHILS % (AUTO) 47.1 % (45.0-75.0); PLATELET COUNT 145 K/UL (150-450); RED BLOOD COUNT 3.43 M/UL (4.20-5.40); WHITE BLOOD COUNT 11.5 K/UL (4.8-10.8)
--- NOTE | 2019-12-31 10:43 | Urology Progress Note ---
Assessment/Plan Status: stable Assessment/Plan: 1. Right-sided hydronephrosis which appears to be chronic. 2. Right-sided nephrolithiasis. 3. Urinary tract infection. 4. Hematuria. 5. Proteinuria. 6. Urinary retention. 7. Probable neurogenic bladder. monitor clinically abx as ordered canseco indwelling hand irrigated and do PRN voiding trial at some point tx of stone electively if feasible renal fxn stable blood transfusion PRN consider nephrostomy Subjective Allergies: Coded Allergies: MORPHINE (Verified Allergy, Unknown, 07/18/09) Subjective all noted, confused, looks comfortable, transfused, low grade fever Objective Last 24 Hour Vital Signs Date Time Temp Pulse Resp B/P (MAP) Pulse Ox O2 Delivery O2 Flow Rate FiO2 12/31/19 09:40 65 120/55 12/31/19 09:00 Nasal Cannula 2.0 12/31/19 08:00 97.9 65 20 120/55 (76) 99 12/31/19 04:00 98.9 68 20 104/64 (77) 94 12/30/19 23:46 98.7 67 20 100/51 (67) 98 12/30/19 21:13 Nasal Cannula 2.0 12/30/19 20:00 98.9 64 20 105/50 (68) 98 12/30/19 16:00 98.8 64 20 100/62 (75) 93 12/30/19 12:00 98.2 64 19 111/65 (80) 96 Intake and Output 12/30/19 12/31/19 19:00 07:00 Intake Total 1580 ml 640 ml Output Total 925 ml 1000 ml Balance 655 ml -360 ml Intake Free Water 200 ml 100 ml IV Total 660 ml Tube Feeding 720 ml 540 ml Output Urine Total 925 ml 1000 ml # Voids 1 # Bowel Movements 4 Microbiology Date/Time Source Procedure Growth Status 12/28/19 14:45 Nasopharynx Coronavirus COVID-19 PCR ([facility]) - Final Complete 12/24/19 20:15 Urine,Clean Catch Urine Culture - Final Escherichia Coli - Esbl Complete 12/24/19 21:00 Rectum - Final NO CARBAPENEM-RESISTANT ENTEROBACTERI... Complete Current Medications Medications (Trade) Dose Ordered Sig/Marcos Route PRN Reason Start Time Stop Time Status Last Admin Dose Admin Acetaminophen (Tylenol) 650 mg Q4H PRN ORAL Temp >100.5 12/24/19 22:30 01/23/20 22:29 12/29/19 21:07 Al Hydroxide/Mg Hydroxide (Mylanta) 30 ml Q4HR PRN ORAL upset stomach 12/24/19 22:30 01/23/20 22:29 Amlodipine Besylate (Norvasc) 5 mg DAILY GT 12/25/19 09:00 01/24/20 08:59 12/31/19 09:40 Bisacodyl (Dulcolax) 10 mg DAILYPRN PRN RECTAL Constipation 12/25/19 00:15 03/24/20 00:14 Brimonidine Tartrate (Alphagan) 1 drop Q8HR BOTH EYES 12/25/19 14:00 03/24/20 13:59 12/31/19 05:47 Dextrose/Sodium Chloride 1,000 ml @ 50 mls/hr Q20H IV 12/29/19 09:21 01/28/20 09:20 12/31/19 01:31 Docusate Sodium (Colace) 100 mg TWICE A DAY GT 12/25/19 09:00 01/24/20 08:59 12/31/19 08:50 Loperamide HCl (Imodium) 2 mg Q4H PRN ORAL Diarrhea 12/29/19 15:45 01/28/20 15:44 12/29/19 15:41 Meropenem 500 mg/ Sodium Chloride 55 ml @ 110 mls/hr Q12H IVPB 12/27/19 14:00 01/02/20 23:59 12/31/19 01:31 Multivitamins (Multivitamins W/ Minerals 15ml Liquid) 15 ml DAILY GT 12/25/19 09:00 01/24/20 08:59 12/31/19 08:50 Pantoprazole (Protonix) 40 mg DAILY@0630 ORAL 12/25/19 06:30 01/24/20 06:29 12/31/19 05:47 Polyethylene Glycol (Miralax) 17 gm BEDTIME ORAL 12/27/19 21:00 01/26/20 20:59 12/27/19 21:05 Laboratory Tests 12/30/19 17:00: Stool Occult Blood [Pending] 12/31/19 09:50: White Blood Count 11.5H, Red Blood Count 3.43L, Hemoglobin 9.7L, Hematocrit 29.6L, Mean Corpuscular Volume 86, Mean Corpuscular Hemoglobin 28.2, Mean Corpuscular Hemoglobin Concent 32.8, Red Cell Distribution Width 14.0, Platelet Count 145L, Mean Platelet Volume 7.5, Neutrophils (%) (Auto) 47.1, Lymphocytes ( %) (Auto) 46.6H, Monocytes (%) (Auto) 5.2, Eosinophils (%) (Auto) 0.4, Basophils (%) (Auto) 0.7 Height (Feet): 5 Height (Inches): 3.00 Weight (Pounds): 107 Objective exam stable canseco indwelling, urine yellow with debris Ladarius Larios MD Dec 31, 2019 10:43
--- NOTE | 2019-12-31 11:21 | Infectious Diseases Prog Note ---
Assessment/Plan Assessment/Plan antibiotics : meropenem A 1. e.coli esbl urinary tract infection. 2. Right-sided hydronephrosis with stone in the kidney. 3. Schizophrenia. 4. Bipolar disorder. 5. Hypertension. 6. COVID-19 negative x 2, 4.18.20, 4.21.20 P 1. continue meropenem 2 more days 2. will follow up cultures 3. d/c isolation Subjective ROS Limited/Unobtainable: Yes Allergies: Coded Allergies: MORPHINE (Verified Allergy, Unknown, 07/18/09) Objective Vital Signs Last 24 Hour Vital Signs Date Time Temp Pulse Resp B/P (MAP) Pulse Ox O2 Delivery O2 Flow Rate FiO2 12/31/19 09:40 65 120/55 12/31/19 09:00 Nasal Cannula 2.0 12/31/19 08:00 97.9 65 20 120/55 (76) 99 12/31/19 04:00 98.9 68 20 104/64 (77) 94 12/30/19 23:46 98.7 67 20 100/51 (67) 98 12/30/19 21:13 Nasal Cannula 2.0 12/30/19 20:00 98.9 64 20 105/50 (68) 98 12/30/19 16:00 98.8 64 20 100/62 (75) 93 12/30/19 12:00 98.2 64 19 111/65 (80) 96 Height (Feet): 5 Height (Inches): 3.00 Weight (Pounds): 107 Microbiology Date/Time Source Procedure Growth Status 12/28/19 14:45 Nasopharynx Coronavirus COVID-19 PCR ([facility]) - Final Complete Laboratory Tests Test 12/30/19 17:00 12/31/19 09:50 Stool Occult Blood Pending White Blood Count 11.5 K/UL (4.8-10.8) H Red Blood Count 3.43 M/UL (4.20-5.40) L Hemoglobin 9.7 G/DL (12.0-16.0) L Hematocrit 29.6 % (37.0-47.0) L Mean Corpuscular Volume 86 FL (80-99) Mean Corpuscular Hemoglobin 28.2 PG (27.0-31.0) Mean Corpuscular Hemoglobin Concent 32.8 G/DL (32.0-36.0) Red Cell Distribution Width 14.0 % (11.6-14.8) Platelet Count 145 K/UL (150-450) L Mean Platelet Volume 7.5 FL (6.5-10.1) Neutrophils (%) (Auto) 47.1 % (45.0-75.0) Lymphocytes (%) (Auto) 46.6 % (20.0-45.0) H Monocytes (%) (Auto) 5.2 % (1.0-10.0) Eosinophils (%) (Auto) 0.4 % (0.0-3.0) Basophils (%) (Auto) 0.7 % (0.0-2.0) Current Medications Medications (Trade) Dose Ordered Sig/Marcos Route PRN Reason Start Time Stop Time Status Last Admin Dose Admin Acetaminophen (Tylenol) 650 mg Q4H PRN ORAL Temp >100.5 12/24/19 22:30 01/23/20 22:29 12/29/19 21:07 Al Hydroxide/Mg Hydroxide (Mylanta) 30 ml Q4HR PRN ORAL upset stomach 12/24/19 22:30 01/23/20 22:29 Amlodipine Besylate (Norvasc) 5 mg DAILY GT 12/25/19 09:00 01/24/20 08:59 12/31/19 09:40 Bisacodyl (Dulcolax) 10 mg DAILYPRN PRN RECTAL Constipation 12/25/19 00:15 03/24/20 00:14 Brimonidine Tartrate (Alphagan) 1 drop Q8HR BOTH EYES 12/25/19 14:00 03/24/20 13:59 12/31/19 05:47 Dextrose/Sodium Chloride 1,000 ml @ 50 mls/hr Q20H IV 12/29/19 09:21 01/28/20 09:20 12/31/19 01:31 Docusate Sodium (Colace) 100 mg TWICE A DAY GT 12/25/19 09:00 01/24/20 08:59 12/31/19 08:50 Loperamide HCl (Imodium) 2 mg Q4H PRN ORAL Diarrhea 12/29/19 15:45 01/28/20 15:44 12/29/19 15:41 Meropenem 500 mg/ Sodium Chloride 55 ml @ 110 mls/hr Q12H IVPB 12/27/19 14:00 01/02/20 23:59 12/31/19 01:31 Multivitamins (Multivitamins W/ Minerals 15ml Liquid) 15 ml DAILY GT 12/25/19 09:00 01/24/20 08:59 12/31/19 08:50 Pantoprazole (Protonix) 40 mg DAILY@0630 ORAL 12/25/19 06:30 01/24/20 06:29 12/31/19 05:47 Polyethylene Glycol (Miralax) 17 gm BEDTIME ORAL 12/27/19 21:00 01/26/20 20:59 12/27/19 21:05 Lidnsay Poole MD Dec 31, 2019 11:21
[2019-12-31 12:00] VITALS: BP 129/74
--- NOTE | 2019-12-31 12:15 | Diagnostic Imaging Report ---
Indication: Shortness of breath Technique: One view of the chest Comparison: 12/25/2019 Findings: Interstitial and airspace infiltrates versus edema are now seen throughout the right lung as well as in the left perihilar region and suprahilar region and probably retrocardiac, markedly increased from the previous study. The left hemidiaphragm is obscured, may indicate some pleural fluid. There is also suggestion of developing right pleural effusion. The heart is borderline enlarged. Impression: Diffuse right lung and left suprahilar and perihilar and retrocardiac infiltrates versus edema, markedly increased from prior study of 12/25/2019 Suspect developing bilateral pleural effusions Borderline cardiomegaly
--- NOTE | 2019-12-31 13:29 | General Progress Note ---
Assessment/Plan Status: stable Assessment/Plan: 1. CVA. 2. Contractures. 3. Malnutrition. 4. Diabetes 5. Gastritis. 6. Hypertension. 7. Pneumonia. 8. Renal disease. 9. Schizophrenia. 10. Anemia stable H&H for 3 days stool ob positive x1 but repeat neg on miralax GTF ppi daily no overt GIB s/p one unit prbc patient off of isolation now no family member available for consent consider emergency consent and GI procedures if needed Subjective Allergies: Coded Allergies: MORPHINE (Verified Allergy, Unknown, 07/18/09) Objective Last 24 Hour Vital Signs Date Time Temp Pulse Resp B/P (MAP) Pulse Ox O2 Delivery O2 Flow Rate FiO2 12/31/19 12:00 98.2 78 20 129/74 (92) 97 12/31/19 09:40 65 120/55 12/31/19 09:00 Nasal Cannula 2.0 12/31/19 08:00 97.9 65 20 120/55 (76) 99 12/31/19 04:00 98.9 68 20 104/64 (77) 94 12/30/19 23:46 98.7 67 20 100/51 (67) 98 12/30/19 21:13 Nasal Cannula 2.0 12/30/19 20:00 98.9 64 20 105/50 (68) 98 12/30/19 16:00 98.8 64 20 100/62 (75) 93 Intake and Output 12/30/19 12/31/19 19:00 07:00 Intake Total 1580 ml 640 ml Output Total 925 ml 1000 ml Balance 655 ml -360 ml Intake Free Water 200 ml 100 ml IV Total 660 ml Tube Feeding 720 ml 540 ml Output Urine Total 925 ml 1000 ml # Voids 1 # Bowel Movements 4 Laboratory Tests 12/30/19 17:00: Stool Occult Blood Negative 12/31/19 09:50: White Blood Count 11.5H, Red Blood Count 3.43L, Hemoglobin 9.7L, Hematocrit 29.6L, Mean Corpuscular Volume 86, Mean Corpuscular Hemoglobin 28.2, Mean Corpuscular Hemoglobin Concent 32.8, Red Cell Distribution Width 14.0, Platelet Count 145L, Mean Platelet Volume 7.5, Neutrophils (%) (Auto) 47.1, Lymphocytes ( %) (Auto) 46.6H, Monocytes (%) (Auto) 5.2, Eosinophils (%) (Auto) 0.4, Basophils (%) (Auto) 0.7 Height (Feet): 5 Height (Inches): 3.00 Weight (Pounds): 107 General Appearance: no apparent distress EENT: normal ENT inspection Neck: supple Cardiovascular: normal rate Respiratory/Chest: decreased breath sounds Abdomen: normal bowel sounds, non tender, soft Extremities: non-tender Oli Keyes MD Dec 31, 2019 13:29
--- NOTE | 2019-12-31 14:39 | Surgery Progress Note ---
Surgery Progress Note Subjective Additional Comments improved no n/v/f/c labs noted exam stable Objective Last 24 Hour Vital Signs Date Time Temp Pulse Resp B/P (MAP) Pulse Ox O2 Delivery O2 Flow Rate FiO2 12/31/19 12:00 98.2 78 20 129/74 (92) 97 12/31/19 09:40 65 120/55 12/31/19 09:00 Nasal Cannula 2.0 12/31/19 08:00 97.9 65 20 120/55 (76) 99 12/31/19 04:00 98.9 68 20 104/64 (77) 94 12/30/19 23:46 98.7 67 20 100/51 (67) 98 12/30/19 21:13 Nasal Cannula 2.0 12/30/19 20:00 98.9 64 20 105/50 (68) 98 12/30/19 16:00 98.8 64 20 100/62 (75) 93 I&O Intake and Output 12/30/19 12/31/19 19:00 07:00 Intake Total 1580 ml 640 ml Output Total 925 ml 1000 ml Balance 655 ml -360 ml Intake Free Water 200 ml 100 ml IV Total 660 ml Tube Feeding 720 ml 540 ml Output Urine Total 925 ml 1000 ml # Voids 1 # Bowel Movements 4 Dressing: other Wound: other Drains: other Cardiovascular: RSR Respiratory: decreased breath sounds Abdomen: soft, non-tender, present bowel sounds Extremities: no cyanosis Laboratory Tests Test 12/30/19 17:00 12/31/19 09:50 Stool Occult Blood Negative (NEGATIVE) White Blood Count 11.5 K/UL (4.8-10.8) H Red Blood Count 3.43 M/UL (4.20-5.40) L Hemoglobin 9.7 G/DL (12.0-16.0) L Hematocrit 29.6 % (37.0-47.0) L Mean Corpuscular Volume 86 FL (80-99) Mean Corpuscular Hemoglobin 28.2 PG (27.0-31.0) Mean Corpuscular Hemoglobin Concent 32.8 G/DL (32.0-36.0) Red Cell Distribution Width 14.0 % (11.6-14.8) Platelet Count 145 K/UL (150-450) L Mean Platelet Volume 7.5 FL (6.5-10.1) Neutrophils (%) (Auto) 47.1 % (45.0-75.0) Lymphocytes (%) (Auto) 46.6 % (20.0-45.0) H Monocytes (%) (Auto) 5.2 % (1.0-10.0) Eosinophils (%) (Auto) 0.4 % (0.0-3.0) Basophils (%) (Auto) 0.7 % (0.0-2.0) Plan Problems: (1) Urinary tract infection (2) Hematuria (3) Hydronephrosis (4) Decubitus skin ulcer Assessment & Plan: Pt presented on admission with Non-blanching erythema without fluctuance L elbow. DTPI L Iliac. (L)1.5cm x (W)2.5cm. Base of wound is indurated and maroon in colour. No evidence of further skin breakdown periwound. Sacral hyperpigmentation from previous wound noted to Sacrum.Non-blanching erythema noted to sacrococcygeal are and cleft of buttocks. An area of hyperpigmentation noted to L trochanteric.Historical scar noted to L Hip. An area of hyperpigmentation noted to R trochanteric. Non-blanching erythema without fluctuance L elbow. Both heels are boggy with non-blanchable erythema. Tx.Plan:Apply Cavilon Skin Barrier to L Iliac. Cover with Optifoam drsg. Change every 7 days and prn. Apply Cavilon Skin Barrier to R and L trochanter. Cover each site with Optifoam drsg. Change every 7 days and prn. Apply Cavilon Skin Barrier to each heel. Cover each heel with Optifoam drsg. Change every 7 days and prn. Apply Moisture Barrier Paste to Sacrum. Cover with Optifoam drsg. Change every 3 days and prn. Reposition at least every 2hours or as tolerated. Off-load heels with pillow. APM/LEONARD Mattress overlay. DAILY ESTIMATED NEEDS: Needs based on Severely underweight, wounds/ 36kg 35-40 kcals/kg 1092-1443 total kcals 1.5-2 g protein/kg 54-72 g total protein 25-30 mL/kg 900-1080 total fluid mLs NUTRITION DIAGNOSIS: * Swallowing difficulty R/T dysphagia as evidenced by pt is PEG dep. * Increased kcal/prot needs R/T severely underweight status, wound heaing as evidenced by 76% IBW w/ BMI of 15.2, admitted w/ multiple wounds including non-blanching erythema at L elbow, sacrococcyx, BL heels, and DTPI at L Iliac, CURRENT TF:Jevity 1.2 @ 60ml/hr x 20 hrs ENTERAL NUTRITION RECOMMENDATIONS: Jevity 1.2 @ 60ml/hr x 20 hrs to provide 1200ml, 1440kcal, 66g prot, 968ml free water * Maintain [employer] TF order of Jevity 1.2- meets 100% est kcal/prot needs * HOB over 30 degrees/ water flush per MD --- With consistently elev BG, rec TF change to Glucerna 1.2 @ 60ml/hr x 20 hrs to meet 1440kcal, 72g prot ADDITIONAL RECOMMENDATIONS: * PER SNF: Ht=61" WT=80lbs * Monitor BGs, need for carb controlled TF and hypoglycemics : pt on Jevity 1.2 [employer], hyperglycemia x 1 on 12/24 (208) * Monitor lytes, replete as needed * Wound healing: add Vit C 500mg QD + Judson BID (5) Renal failure (6) Obstructive uropathy (7) Sepsis (8) GIB (gastrointestinal bleeding) Assessment & Plan: stable no active bleeding CT noted Liver: Unremarkable. Gallbladder and bile ducts: Unremarkable. No calcified stones. No ductal dilation. Pancreas: Unremarkable. No ductal dilation. Spleen: Unremarkable. No splenomegaly. Adrenals: Unremarkable. No mass. Kidneys and ureters: Bilateral nephrolithiasis. There is a 1.4 x 1.3 x 2.1 cm stone in the right renal pelvis. There is right hydronephrosis. Stomach and bowel: Unremarkable. No obstruction. No mucosal thickening. PELVIS: Appendix: The appendix is not identified Bladder: Unremarkable. No stones. Reproductive: Unremarkable as visualized. ABDOMEN and PELVIS: Intraperitoneal space: Unremarkable. No free air. No significant fluid collection. Bones/joints: No acute fracture. No dislocation. Soft tissues: Unremarkable. Vasculature: Unremarkable. No abdominal aortic aneurysm. Lymph nodes: Unremarkable. No enlarged lymph nodes. IMPRESSION: Right hydronephrosis with a 2.1 x 1.4 x 1.3 cm stone in the right renal pelvis. trend labs will monitor (9) Nephrolithiasis (10) Dehydration (11) HELENE (acute kidney injury) (12) Infection due to ESBL-producing Escherichia coli (13) Hemorrhagic cystitis (14) Schizophrenia (15) Altered mental status (16) HTN (hypertension) (17) Abnormal LFTs (18) Noncompliance Alistair Nieves Dec 31, 2019 14:39
[2019-12-31 16:00] VITALS: BP 133/62
--- NOTE | 2019-12-31 16:08 | Nephrology Progress Note ---
Assessment/Plan Problem List: (1) Hydronephrosis (2) Hematuria (3) Nephrolithiasis (4) Obstructive uropathy (5) Dehydration (6) HELENE (acute kidney injury) (7) Infection due to ESBL-producing Escherichia coli Plan continue hydration, urine clearing, antibiotics, poor candidate for procedure Subjective ROS Limited/Unobtainable: Yes Objective Objective Last 24 Hour Vital Signs Date Time Temp Pulse Resp B/P (MAP) Pulse Ox O2 Delivery O2 Flow Rate FiO2 12/31/19 12:00 98.2 78 20 129/74 (92) 97 12/31/19 09:40 65 120/55 12/31/19 09:00 Nasal Cannula 2.0 12/31/19 08:00 97.9 65 20 120/55 (76) 99 12/31/19 04:00 98.9 68 20 104/64 (77) 94 12/30/19 23:46 98.7 67 20 100/51 (67) 98 12/30/19 21:13 Nasal Cannula 2.0 12/30/19 20:00 98.9 64 20 105/50 (68) 98 Intake and Output 12/30/19 12/31/19 19:00 07:00 Intake Total 1580 ml 640 ml Output Total 925 ml 1000 ml Balance 655 ml -360 ml Intake Free Water 200 ml 100 ml IV Total 660 ml Tube Feeding 720 ml 540 ml Output Urine Total 925 ml 1000 ml # Voids 1 # Bowel Movements 4 Laboratory Tests 12/30/19 17:00: Stool Occult Blood Negative 12/31/19 09:50: White Blood Count 11.5H, Red Blood Count 3.43L, Hemoglobin 9.7L, Hematocrit 29.6L, Mean Corpuscular Volume 86, Mean Corpuscular Hemoglobin 28.2, Mean Corpuscular Hemoglobin Concent 32.8, Red Cell Distribution Width 14.0, Platelet Count 145L, Mean Platelet Volume 7.5, Neutrophils (%) (Auto) 47.1, Lymphocytes ( %) (Auto) 46.6H, Monocytes (%) (Auto) 5.2, Eosinophils (%) (Auto) 0.4, Basophils (%) (Auto) 0.7 Height (Feet): 5 Height (Inches): 3.00 Weight (Pounds): 107 General Appearance: confused EENT: normal ENT inspection Neck: normal alignment Cardiovascular: normal rate Respiratory/Chest: lungs clear Abdomen: non tender, soft Extremities: no edema Neurologic: motor weakness, disoriented Objective less hematuria, continue hydration,iv rate reduced atb per ID García Alcaraz MD Dec 31, 2019 16:08
[2019-12-31 20:00] VITALS: BP 105/54
[2019-12-31] MEDS: Miralax 17gm pkt ORAL SCH (21:00)
[2020-01-01] VITALS (7 sets, daily range): BP systolic 109–121; BP diastolic 50–74
[2020-01-01] MEDS: Meropenem 500 MG in NS 55 ML IVPB SCH ×2 (01:30→14:55)
[2020-01-01] MEDS: Brimonidine 0.2% Opth Sol BOTH EYES SCH ×3 (05:49→21:28)
[2020-01-01 06:25] LABS: BASOPHILS % (AUTO) 0.7 % (0.0-2.0); EOSINOPHILS % (AUTO) 0.8 % (0.0-3.0); HEMATOCRIT 28.4 % (37.0-47.0); HEMOGLOBIN 9.4 G/DL (12.0-16.0); LYMPHOCYTES % (AUTO) 45.5 % (20.0-45.0); MEAN CORPUSCULAR VOLUME 86 FL (80-99); PLATELET COUNT 148 K/UL (150-450); RED CELL DISTRIBUTION WIDTH 13.7 % (11.6-14.8)
[2020-01-01 07:10] LABS: ALANINE AMINOTRANSFERASE 55 U/L (12-78); ALBUMIN 1.9 G/DL (3.4-5.0); ALBUMIN/GLOBULIN RATIO 0.2 (1.0-2.7); ALKALINE PHOSPHATASE 69 U/L (46-116); ANION GAP 10 mmol/L (5-15); ASPARTATE AMINO TRANSFERASE 23 U/L (15-37); BILIRUBIN,TOTAL 0.3 MG/DL (0.2-1.0); BLOOD UREA NITROGEN 37 mg/dL (7-18); CALCIUM 9.3 MG/DL (8.5-10.1); CARBON DIOXIDE 25 MMOL/L (21-32); CHLORIDE 106 MMOL/L (98-107); POTASSIUM 4.4 MMOL/L (3.5-5.1); SODIUM 141 MMOL/L (136-145)
[2020-01-01] MEDS: Multivitamins W/Minerals 15 ML UDC GT SCH (09:07)
[2020-01-01] MEDS: Docusate 100mg/10ml Liq GT SCH ×2 (09:07→17:19)
--- NOTE | 2020-01-01 10:48 | Urology Progress Note ---
Assessment/Plan Status: stable Assessment/Plan: 1. Right-sided hydronephrosis which appears to be chronic. 2. Right-sided nephrolithiasis. 3. Urinary tract infection. 4. Hematuria. 5. Proteinuria. 6. Urinary retention. 7. Probable neurogenic bladder. monitor clinically abx as ordered canseco indwelling hand irrigated and do PRN voiding trial at some point tx of stone electively if feasible renal fxn stable blood transfusion PRN consider nephrostomy Subjective Allergies: Coded Allergies: MORPHINE (Verified Allergy, Unknown, 07/18/09) Subjective all noted, confused, looks comfortable, transfused, low grade fever Objective Last 24 Hour Vital Signs Date Time Temp Pulse Resp B/P (MAP) Pulse Ox O2 Delivery O2 Flow Rate FiO2 01/01/20 09:38 99.1 01/01/20 09:07 62 120/62 01/01/20 09:00 Nasal Cannula 2.0 01/01/20 08:00 99.1 61 20 120/62 (81) 95 01/01/20 04:00 98.9 61 20 111/74 (86) 95 01/01/20 00:00 98.6 68 20 109/50 (69) 95 12/31/19 21:22 Nasal Cannula 2.0 12/31/19 20:00 98.4 68 20 105/54 (71) 95 12/31/19 16:00 97.2 68 20 133/62 (85) 97 12/31/19 12:00 98.2 78 20 129/74 (92) 97 Intake and Output 12/31/19 01/01/20 19:00 07:00 Intake Total 1195 ml 340 ml Output Total 1400 ml 500 ml Balance -205 ml -160 ml Intake Free Water 100 ml IV Total 655 ml Tube Feeding 540 ml 240 ml Output Urine Total 1400 ml 500 ml Microbiology Date/Time Source Procedure Growth Status 12/28/19 14:45 Nasopharynx Coronavirus COVID-19 PCR (JEREMY) - Final Complete 12/24/19 20:15 Urine,Clean Catch Urine Culture - Final Escherichia Coli - Esbl Complete 12/24/19 21:00 Rectum - Final NO CARBAPENEM-RESISTANT ENTEROBACTERI... Complete Current Medications Medications (Trade) Dose Ordered Sig/Marcos Route PRN Reason Start Time Stop Time Status Last Admin Dose Admin Acetaminophen (Tylenol) 650 mg Q4H PRN ORAL Temp >100.5 12/24/19 22:30 01/23/20 22:29 01/01/20 09:08 Al Hydroxide/Mg Hydroxide (Mylanta) 30 ml Q4HR PRN ORAL upset stomach 12/24/19 22:30 01/23/20 22:29 Amlodipine Besylate (Norvasc) 5 mg DAILY GT 12/25/19 09:00 01/24/20 08:59 01/01/20 09:07 Bisacodyl (Dulcolax) 10 mg DAILYPRN PRN RECTAL Constipation 12/25/19 00:15 03/24/20 00:14 Brimonidine Tartrate (Alphagan) 1 drop Q8HR BOTH EYES 12/25/19 14:00 03/24/20 13:59 01/01/20 05:49 Dextrose/Sodium Chloride 1,000 ml @ 50 mls/hr Q20H IV 12/29/19 09:21 01/28/20 09:20 12/31/19 21:43 Docusate Sodium (Colace) 100 mg TWICE A DAY GT 12/25/19 09:00 01/24/20 08:59 01/01/20 09:07 Furosemide (Lasix) 20 mg DAILY IV 12/31/19 12:45 01/02/20 09:00 01/01/20 09:08 Loperamide HCl (Imodium) 2 mg Q4H PRN ORAL Diarrhea 12/29/19 15:45 01/28/20 15:44 12/29/19 15:41 Meropenem 500 mg/ Sodium Chloride 55 ml @ 110 mls/hr Q12H IVPB 12/27/19 14:00 01/02/20 23:59 01/01/20 01:30 Multivitamins (Multivitamins W/ Minerals 15ml Liquid) 15 ml DAILY GT 12/25/19 09:00 01/24/20 08:59 01/01/20 09:07 Pantoprazole (Protonix) 40 mg DAILY@0630 ORAL 12/25/19 06:30 01/24/20 06:29 01/01/20 05:49 Polyethylene Glycol (Miralax) 17 gm BEDTIME ORAL 12/27/19 21:00 01/26/20 20:59 12/27/19 21:05 Laboratory Tests 01/01/20 06:00: White Blood Count 10.0, Red Blood Count 3.30L, Hemoglobin 9.4L, Hematocrit 28.4L , Mean Corpuscular Volume 86, Mean Corpuscular Hemoglobin 28.4, Mean Corpuscular Hemoglobin Concent 33.1, Red Cell Distribution Width 13.7, Platelet Count 148L, Mean Platelet Volume 7.5, Neutrophils (%) (Auto) 47.0, Lymphocytes ( %) (Auto) 45.5H, Monocytes (%) (Auto) 6.0, Eosinophils (%) (Auto) 0.8, Basophils (%) (Auto) 0.7, Sodium Level 141, Potassium Level 4.4, Chloride Level 106, Carbon Dioxide Level 25, Anion Gap 10, Blood Urea Nitrogen 37H, Creatinine 1.0, Estimat Glomerular Filtration Rate 53.5, Glucose Level 90, Calcium Level 9.3, Total Bilirubin 0.3, Aspartate Amino Transf (AST/SGOT) 23, Alanine Aminotransferase (ALT/SGPT) 55, Alkaline Phosphatase 69, Pro-B-Type Natriuretic Peptide 2026H, Total Protein 9.5H, Albumin 1.9L, Globulin 7.6, Albumin/Globulin Ratio 0.2L Height (Feet): 5 Height (Inches): 3.00 Weight (Pounds): 107 Objective exam stable canseco indwelling, urine yellow with debris Ladarius Larios MD Jan 01, 2020 10:48
--- NOTE | 2020-01-01 11:36 | General Progress Note ---
Assessment/Plan Problem List: (1) GIB (gastrointestinal bleeding) ICD Codes: K92.2 - Gastrointestinal hemorrhage, unspecified SNOMED: 33705747 (2) Hydronephrosis ICD Codes: N13.30 - Unspecified hydronephrosis SNOMED: 32043307 (3) Decubitus skin ulcer ICD Codes: L89.90 - Pressure ulcer of unspecified site, unspecified stage SNOMED: 807989312 (4) Renal failure ICD Codes: N19 - Unspecified kidney failure SNOMED: 23311346 (5) Sepsis ICD Codes: A41.9 - Sepsis, unspecified organism SNOMED: 11567729 (6) Obstructive uropathy ICD Codes: N13.9 - Obstructive and reflux uropathy, unspecified SNOMED: 4491519 (7) Hematuria ICD Codes: R31.9 - Hematuria, unspecified SNOMED: 30485566 Status: stable Assessment/Plan: monitor for bleeding. cbc daily. iv ppi. GI and gu appreciated. stool ob positive but h/h stable without signs of bleeding- hgb stable. IV abx per id follow up cultures. covid- ?dc isolation- defer to id. monitor cxr. skin care. Possible endoscopy per GI if emergent. Tylenol for fever. Subjective ROS Limited/Unobtainable: Yes Constitutional: Reports: malaise, weakness HEENT: Reports: no symptoms Cardiovascular: Reports: no symptoms Respiratory: Reports: shortness of breath Gastrointestinal/Abdominal: Reports: difficulty swallowing Genitourinary: Reports: no symptoms Neurologic/Psychiatric: Reports: depressed, pre-existing deficit Endocrine: Reports: no symptoms Hematologic/Lymphatic: Reports: anemia Allergies: Coded Allergies: MORPHINE (Verified Allergy, Unknown, 07/18/09) All Systems: reviewed and negative except above Subjective no overnight events. no fevers or chills. withdrawn and confused.. covid neg x 2. Remains on IV antibiotics for UTI. No hematuria or melena noted. Tolerating G-tube feedings. Objective Last 24 Hour Vital Signs Date Time Temp Pulse Resp B/P (MAP) Pulse Ox O2 Delivery O2 Flow Rate FiO2 01/01/20 09:38 99.1 01/01/20 09:07 62 120/62 01/01/20 09:00 Nasal Cannula 2.0 01/01/20 08:00 99.1 61 20 120/62 (81) 95 01/01/20 04:00 98.9 61 20 111/74 (86) 95 01/01/20 00:00 98.6 68 20 109/50 (69) 95 12/31/19 21:22 Nasal Cannula 2.0 12/31/19 20:00 98.4 68 20 105/54 (71) 95 12/31/19 16:00 97.2 68 20 133/62 (85) 97 12/31/19 12:00 98.2 78 20 129/74 (92) 97 Intake and Output 12/31/19 01/01/20 19:00 07:00 Intake Total 1195 ml 340 ml Output Total 1400 ml 500 ml Balance -205 ml -160 ml Intake Free Water 100 ml IV Total 655 ml Tube Feeding 540 ml 240 ml Output Urine Total 1400 ml 500 ml Laboratory Tests 01/01/20 06:00: White Blood Count 10.0, Red Blood Count 3.30L, Hemoglobin 9.4L, Hematocrit 28.4L , Mean Corpuscular Volume 86, Mean Corpuscular Hemoglobin 28.4, Mean Corpuscular Hemoglobin Concent 33.1, Red Cell Distribution Width 13.7, Platelet Count 148L, Mean Platelet Volume 7.5, Neutrophils (%) (Auto) 47.0, Lymphocytes ( %) (Auto) 45.5H, Monocytes (%) (Auto) 6.0, Eosinophils (%) (Auto) 0.8, Basophils (%) (Auto) 0.7, Sodium Level 141, Potassium Level 4.4, Chloride Level 106, Carbon Dioxide Level 25, Anion Gap 10, Blood Urea Nitrogen 37H, Creatinine 1.0, Estimat Glomerular Filtration Rate 53.5, Glucose Level 90, Calcium Level 9.3, Total Bilirubin 0.3, Aspartate Amino Transf (AST/SGOT) 23, Alanine Aminotransferase (ALT/SGPT) 55, Alkaline Phosphatase 69, Pro-B-Type Natriuretic Peptide 2027H, Total Protein 9.5H, Albumin 1.9L, Globulin 7.6, Albumin/Globulin Ratio 0.2L Height (Feet): 5 Height (Inches): 3.00 Weight (Pounds): 107 Objective General Appearance: WD/WN, lethargic, confused, thin EENT: normal ENT inspection Neck: non-tender, normal alignment, supple Cardiovascular: normal peripheral pulses, normal rate, regular rhythm Respiratory/Chest: chest wall non-tender, lungs clear, normal breath sounds, no respiratory distress Abdomen: normal bowel sounds, non tender, soft, no organomegaly Edema: no edema noted Arm (L), no edema noted Arm (R), no edema noted Leg (L), no edema noted Leg (R), no edema noted Pedal (L), no edema noted Pedal (R), no edema noted Generalized Neurologic: alert, disoriented, unresponsive Skin: normal pigmentation Clayton Scales MD Jan 01, 2020 11:36
--- NOTE | 2020-01-01 13:25 | GI Progress Note ---
Assessment/Plan Problems: (1) Abnormal LFTs ICD Codes: R94.5 - Abnormal results of liver function studies SNOMED: 208070540 (2) GIB (gastrointestinal bleeding) ICD Codes: K92.2 - Gastrointestinal hemorrhage, unspecified SNOMED: 28428549 (3) Renal failure ICD Codes: N19 - Unspecified kidney failure SNOMED: 63258591 (4) Hematuria ICD Codes: R31.9 - Hematuria, unspecified SNOMED: 10541872 (5) Noncompliance ICD Codes: Z91.19 - Patient's noncompliance with other medical treatment and regimen SNOMED: 0555767 Status: stable Status Narrative Discussed with Dr. Keyes. Assessment/Plan 1. CVA. 2. Contractures. 3. Malnutrition. 4. Diabetes 5. Gastritis. 6. Hypertension. 7. Pneumonia. 8. Renal disease. 9. Schizophrenia. 10. Anemia stable H&H for 3 days stool ob positive x1 but repeat neg on miralax GTF ppi daily no overt GIB s/p one unit prbc patient off of isolation now no family member available for consent consider emergency consent and GI procedures if needed The patient was seen and examined at bedside and all new and available data was reviewed in the patients chart. I agree with the above findings, impression and plan. (Patient seen earlier today. Signature stamp does not reflect patient encounter time.). - Oli Keyes MD Subjective Gastrointestinal/Abdominal: Reports: no symptoms Objective Last 24 Hour Vital Signs Date Time Temp Pulse Resp B/P (MAP) Pulse Ox O2 Delivery O2 Flow Rate FiO2 01/01/20 12:00 97.7 77 20 119/69 (86) 96 01/01/20 09:38 99.1 01/01/20 09:07 62 120/62 01/01/20 09:00 Nasal Cannula 2.0 01/01/20 08:00 99.1 61 20 120/62 (81) 95 01/01/20 04:00 98.9 61 20 111/74 (86) 95 01/01/20 00:00 98.6 68 20 109/50 (69) 95 12/31/19 21:22 Nasal Cannula 2.0 12/31/19 20:00 98.4 68 20 105/54 (71) 95 12/31/19 16:00 97.2 68 20 133/62 (85) 97 Intake and Output 12/31/19 01/01/20 19:00 07:00 Intake Total 1195 ml 340 ml Output Total 1400 ml 500 ml Balance -205 ml -160 ml Intake Free Water 100 ml IV Total 655 ml Tube Feeding 540 ml 240 ml Output Urine Total 1400 ml 500 ml Laboratory Tests Test 01/01/20 06:00 White Blood Count 10.0 K/UL (4.8-10.8) Red Blood Count 3.30 M/UL (4.20-5.40) L Hemoglobin 9.4 G/DL (12.0-16.0) L Hematocrit 28.4 % (37.0-47.0) L Mean Corpuscular Volume 86 FL (80-99) Mean Corpuscular Hemoglobin 28.4 PG (27.0-31.0) Mean Corpuscular Hemoglobin Concent 33.1 G/DL (32.0-36.0) Red Cell Distribution Width 13.7 % (11.6-14.8) Platelet Count 148 K/UL (150-450) L Mean Platelet Volume 7.5 FL (6.5-10.1) Neutrophils (%) (Auto) 47.0 % (45.0-75.0) Lymphocytes (%) (Auto) 45.5 % (20.0-45.0) H Monocytes (%) (Auto) 6.0 % (1.0-10.0) Eosinophils (%) (Auto) 0.8 % (0.0-3.0) Basophils (%) (Auto) 0.7 % (0.0-2.0) Sodium Level 141 MMOL/L (136-145) Potassium Level 4.4 MMOL/L (3.5-5.1) Chloride Level 106 MMOL/L (98-107) Carbon Dioxide Level 25 MMOL/L (21-32) Anion Gap 10 mmol/L (5-15) Blood Urea Nitrogen 37 mg/dL (7-18) H Creatinine 1.0 MG/DL (0.55-1.30) Estimat Glomerular Filtration Rate 53.5 mL/min (>60) Glucose Level 90 MG/DL (74-106) Calcium Level 9.3 MG/DL (8.5-10.1) Total Bilirubin 0.3 MG/DL (0.2-1.0) Aspartate Amino Transf (AST/SGOT) 23 U/L (15-37) Alanine Aminotransferase (ALT/SGPT) 55 U/L (12-78) Alkaline Phosphatase 69 U/L (46-116) Pro-B-Type Natriuretic Peptide 2027 pg/mL (0-125) H Total Protein 9.5 G/DL (6.4-8.2) H Albumin 1.9 G/DL (3.4-5.0) L Globulin 7.6 g/dL Albumin/Globulin Ratio 0.2 (1.0-2.7) L Height (Feet): 5 Height (Inches): 3.00 Weight (Pounds): 107 General Appearance: WD/WN, no apparent distress, alert Cardiovascular: normal rate Respiratory/Chest: normal breath sounds, no respiratory distress Abdominal Exam: normal bowel sounds, non tender, soft Extremities: normal range of motion, non-tender Ana Braga [employer] Jan 01, 2020 13:25
--- NOTE | 2020-01-01 17:15 | Pulmonology Progress Note ---
Assessment/Plan Assessment/Plan IMPRESSION: pneumonia, worsening pulmonary edema, respiratory insufficiency history and evidence of aspiration, E coli UTI, right-sided hydronephrosis, schizophrenia, bipolar disorder, hypertension, rule out COVID, anemia, possible GI bleed. leukocytosis PLAN monitor imaging isolation cultures noted aspiration precautions feed increase diuresis followup CXR gi follow up for possible EGD monitor WBC ID clearance impression, plan, and exam edited and reviewed in detail care discussed with RN Subjective ROS Limited/Unobtainable: Yes Constitutional: Reports: fever, other - last night Allergies: Coded Allergies: MORPHINE (Verified Allergy, Unknown, 07/18/09) All Systems: reviewed and negative except above Subjective care noted remains ill worsening pulmonary edema or infiltrates renal function noted isolation / some congestion Objective Last 24 Hour Vital Signs Date Time Temp Pulse Resp B/P (MAP) Pulse Ox O2 Delivery O2 Flow Rate FiO2 01/01/20 16:00 97.2 74 20 114/59 (77) 96 01/01/20 12:00 97.7 77 20 119/69 (86) 96 01/01/20 09:38 99.1 01/01/20 09:07 62 120/62 01/01/20 09:00 Nasal Cannula 2.0 01/01/20 08:00 99.1 61 20 120/62 (81) 95 01/01/20 04:00 98.9 61 20 111/74 (86) 95 01/01/20 00:00 98.6 68 20 109/50 (69) 95 12/31/19 21:22 Nasal Cannula 2.0 12/31/19 20:00 98.4 68 20 105/54 (71) 95 Intake and Output 12/31/19 01/01/20 19:00 07:00 Intake Total 1195 ml 390 ml Output Total 1400 ml 500 ml Balance -205 ml -110 ml Intake Free Water 100 ml IV Total 655 ml 50 ml Tube Feeding 540 ml 240 ml Output Urine Total 1400 ml 500 ml Objective GENERAL: An ill-appearing female, nonverbal. NECK: Supple. LUNGS: Moderate breath sounds and worsening rhonchi. CARDIAC: S1 and S2. Regular rate and rhythm. Soft systolic murmur left upper sternal border. No rubs or gallops. ABDOMEN: Soft, nontender. G-tube in place. EXTREMITIES: Significant contractures. No edema. Reduced skin turgor. NEUROLOGIC: Responds to painful stimuli x4. nonverbal reviewed and edited General Appearance: no acute distress HEENT: other - dry mouth, poor dentition Abdomen: soft, non tender, other - GT feeding Extremities: no edema Neurologic/Psychiatric: unresponsiveness Laboratory Tests 01/01/20 06:00: White Blood Count 10.0, Red Blood Count 3.30L, Hemoglobin 9.4L, Hematocrit 28.4L , Mean Corpuscular Volume 86, Mean Corpuscular Hemoglobin 28.4, Mean Corpuscular Hemoglobin Concent 33.1, Red Cell Distribution Width 13.7, Platelet Count 148L, Mean Platelet Volume 7.5, Neutrophils (%) (Auto) 47.0, Lymphocytes ( %) (Auto) 45.5H, Monocytes (%) (Auto) 6.0, Eosinophils (%) (Auto) 0.8, Basophils (%) (Auto) 0.7, Sodium Level 141, Potassium Level 4.4, Chloride Level 106, Carbon Dioxide Level 25, Anion Gap 10, Blood Urea Nitrogen 37H, Creatinine 1.0, Estimat Glomerular Filtration Rate 53.5, Glucose Level 90, Calcium Level 9.3, Total Bilirubin 0.3, Aspartate Amino Transf (AST/SGOT) 23, Alanine Aminotransferase (ALT/SGPT) 55, Alkaline Phosphatase 69, Pro-B-Type Natriuretic Peptide 2027H, Total Protein 9.5H, Albumin 1.9L, Globulin 7.6, Albumin/Globulin Ratio 0.2L Current Medications Medications (Trade) Dose Ordered Sig/Marcos Route PRN Reason Start Time Stop Time Status Last Admin Dose Admin Acetaminophen (Tylenol) 650 mg Q4H PRN ORAL Temp >100.5 12/24/19 22:30 01/23/20 22:29 01/01/20 09:08 Al Hydroxide/Mg Hydroxide (Mylanta) 30 ml Q4HR PRN ORAL upset stomach 12/24/19 22:30 01/23/20 22:29 Amlodipine Besylate (Norvasc) 5 mg DAILY GT 12/25/19 09:00 01/24/20 08:59 01/01/20 09:07 Bisacodyl (Dulcolax) 10 mg DAILYPRN PRN RECTAL Constipation 12/25/19 00:15 03/24/20 00:14 Brimonidine Tartrate (Alphagan) 1 drop Q8HR BOTH EYES 12/25/19 14:00 03/24/20 13:59 01/01/20 14:00 Docusate Sodium (Colace) 100 mg TWICE A DAY GT 12/25/19 09:00 01/24/20 08:59 01/01/20 09:07 Furosemide (Lasix) 20 mg BID IV 01/01/20 18:00 01/31/20 17:59 Loperamide HCl (Imodium) 2 mg Q4H PRN ORAL Diarrhea 12/29/19 15:45 01/28/20 15:44 12/29/19 15:41 Meropenem 500 mg/ Sodium Chloride 55 ml @ 110 mls/hr Q12H IVPB 12/27/19 14:00 01/02/20 23:59 01/01/20 14:55 Multivitamins (Multivitamins W/ Minerals 15ml Liquid) 15 ml DAILY GT 12/25/19 09:00 01/24/20 08:59 01/01/20 09:07 Pantoprazole (Protonix) 40 mg DAILY@0630 ORAL 12/25/19 06:30 01/24/20 06:29 01/01/20 05:49 Polyethylene Glycol (Miralax) 17 gm BEDTIME ORAL 12/27/19 21:00 01/26/20 20:59 12/27/19 21:05 Potassium Chloride (K-Dur) 40 meq DAILY ORAL 01/01/20 13:45 03/31/20 13:44 01/01/20 14:54 Ac Bernal MD Jan 01, 2020 17:15
--- NOTE | 2020-01-01 17:36 | Nephrology Progress Note ---
Assessment/Plan Problem List: (1) Hydronephrosis (2) Hematuria (3) Nephrolithiasis (4) Obstructive uropathy (5) Dehydration (6) HELENE (acute kidney injury) (7) Infection due to ESBL-producing Escherichia coli (8) CHF (congestive heart failure) (9) Schizophrenia Plan chf increase lasix urine clearing, antibiotics, poor candidate for procedure Subjective ROS Limited/Unobtainable: Yes Objective Objective Last 24 Hour Vital Signs Date Time Temp Pulse Resp B/P (MAP) Pulse Ox O2 Delivery O2 Flow Rate FiO2 01/01/20 16:00 97.2 74 20 114/59 (77) 96 01/01/20 12:00 97.7 77 20 119/69 (86) 96 01/01/20 09:38 99.1 01/01/20 09:07 62 120/62 01/01/20 09:00 Nasal Cannula 2.0 01/01/20 08:00 99.1 61 20 120/62 (81) 95 01/01/20 04:00 98.9 61 20 111/74 (86) 95 01/01/20 00:00 98.6 68 20 109/50 (69) 95 12/31/19 21:22 Nasal Cannula 2.0 12/31/19 20:00 98.4 68 20 105/54 (71) 95 Intake and Output 12/31/19 01/01/20 19:00 07:00 Intake Total 1195 ml 390 ml Output Total 1400 ml 500 ml Balance -205 ml -110 ml Intake Free Water 100 ml IV Total 655 ml 50 ml Tube Feeding 540 ml 240 ml Output Urine Total 1400 ml 500 ml Laboratory Tests 01/01/20 06:00: White Blood Count 10.0, Red Blood Count 3.30L, Hemoglobin 9.4L, Hematocrit 28.4L , Mean Corpuscular Volume 86, Mean Corpuscular Hemoglobin 28.4, Mean Corpuscular Hemoglobin Concent 33.1, Red Cell Distribution Width 13.7, Platelet Count 148L, Mean Platelet Volume 7.5, Neutrophils (%) (Auto) 47.0, Lymphocytes ( %) (Auto) 45.5H, Monocytes (%) (Auto) 6.0, Eosinophils (%) (Auto) 0.8, Basophils (%) (Auto) 0.7, Sodium Level 141, Potassium Level 4.4, Chloride Level 106, Carbon Dioxide Level 25, Anion Gap 10, Blood Urea Nitrogen 37H, Creatinine 1.0, Estimat Glomerular Filtration Rate 53.5, Glucose Level 90, Calcium Level 9.3, Total Bilirubin 0.3, Aspartate Amino Transf (AST/SGOT) 23, Alanine Aminotransferase (ALT/SGPT) 55, Alkaline Phosphatase 69, Pro-B-Type Natriuretic Peptide 2027H, Total Protein 9.5H, Albumin 1.9L, Globulin 7.6, Albumin/Globulin Ratio 0.2L Height (Feet): 5 Height (Inches): 3.00 Weight (Pounds): 107 General Appearance: alert, confused EENT: normal ENT inspection Neck: normal alignment Cardiovascular: normal rate, regular rhythm Respiratory/Chest: lungs clear Extremities: no edema Neurologic: disoriented Objective less hematuria, continue hydration,iv rate reduced atb per ID García Alcaraz MD Jan 01, 2020 17:36
--- NOTE | 2020-01-01 19:40 | Surgery Progress Note ---
Surgery Progress Note Subjective Additional Comments no acute events labs noted exam stable Objective Last 24 Hour Vital Signs Date Time Temp Pulse Resp B/P (MAP) Pulse Ox O2 Delivery O2 Flow Rate FiO2 01/01/20 16:00 97.2 74 20 114/59 (77) 96 01/01/20 12:00 97.7 77 20 119/69 (86) 96 01/01/20 09:38 99.1 01/01/20 09:07 62 120/62 01/01/20 09:00 Nasal Cannula 2.0 01/01/20 08:00 99.1 61 20 120/62 (81) 95 01/01/20 04:00 98.9 61 20 111/74 (86) 95 01/01/20 00:00 98.6 68 20 109/50 (69) 95 12/31/19 21:22 Nasal Cannula 2.0 12/31/19 20:00 98.4 68 20 105/54 (71) 95 I&O Intake and Output 12/31/19 01/01/20 19:00 07:00 Intake Total 1195 ml 550 ml Output Total 1400 ml 500 ml Balance -205 ml 50 ml Intake Free Water 200 ml IV Total 655 ml 50 ml Tube Feeding 540 ml 300 ml Output Urine Total 1400 ml 500 ml Dressing: other Wound: other Drains: other Cardiovascular: RSR Respiratory: decreased breath sounds Abdomen: soft, non-tender, present bowel sounds Extremities: no tenderness, no cyanosis Laboratory Tests Test 01/01/20 06:00 White Blood Count 10.0 K/UL (4.8-10.8) Red Blood Count 3.30 M/UL (4.20-5.40) L Hemoglobin 9.4 G/DL (12.0-16.0) L Hematocrit 28.4 % (37.0-47.0) L Mean Corpuscular Volume 86 FL (80-99) Mean Corpuscular Hemoglobin 28.4 PG (27.0-31.0) Mean Corpuscular Hemoglobin Concent 33.1 G/DL (32.0-36.0) Red Cell Distribution Width 13.7 % (11.6-14.8) Platelet Count 148 K/UL (150-450) L Mean Platelet Volume 7.5 FL (6.5-10.1) Neutrophils (%) (Auto) 47.0 % (45.0-75.0) Lymphocytes (%) (Auto) 45.5 % (20.0-45.0) H Monocytes (%) (Auto) 6.0 % (1.0-10.0) Eosinophils (%) (Auto) 0.8 % (0.0-3.0) Basophils (%) (Auto) 0.7 % (0.0-2.0) Sodium Level 141 MMOL/L (136-145) Potassium Level 4.4 MMOL/L (3.5-5.1) Chloride Level 106 MMOL/L (98-107) Carbon Dioxide Level 25 MMOL/L (21-32) Anion Gap 10 mmol/L (5-15) Blood Urea Nitrogen 37 mg/dL (7-18) H Creatinine 1.0 MG/DL (0.55-1.30) Estimat Glomerular Filtration Rate 53.5 mL/min (>60) Glucose Level 90 MG/DL (74-106) Calcium Level 9.3 MG/DL (8.5-10.1) Total Bilirubin 0.3 MG/DL (0.2-1.0) Aspartate Amino Transf (AST/SGOT) 23 U/L (15-37) Alanine Aminotransferase (ALT/SGPT) 55 U/L (12-78) Alkaline Phosphatase 69 U/L (46-116) Pro-B-Type Natriuretic Peptide 2027 pg/mL (0-125) H Total Protein 9.5 G/DL (6.4-8.2) H Albumin 1.9 G/DL (3.4-5.0) L Globulin 7.6 g/dL Albumin/Globulin Ratio 0.2 (1.0-2.7) L Plan Problems: (1) Urinary tract infection (2) Hematuria (3) Hydronephrosis (4) Decubitus skin ulcer Assessment & Plan: Pt presented on admission with Non-blanching erythema without fluctuance L elbow. DTPI L Iliac. (L)1.5cm x (W)2.5cm. Base of wound is indurated and maroon in colour. No evidence of further skin breakdown periwound. Sacral hyperpigmentation from previous wound noted to Sacrum.Non-blanching erythema noted to sacrococcygeal are and cleft of buttocks. An area of hyperpigmentation noted to L trochanteric.Historical scar noted to L Hip. An area of hyperpigmentation noted to R trochanteric. Non-blanching erythema without fluctuance L elbow. Both heels are boggy with non-blanchable erythema. Tx.Plan:Apply Cavilon Skin Barrier to L Iliac. Cover with Optifoam drsg. Change every 7 days and prn. Apply Cavilon Skin Barrier to R and L trochanter. Cover each site with Optifoam drsg. Change every 7 days and prn. Apply Cavilon Skin Barrier to each heel. Cover each heel with Optifoam drsg. Change every 7 days and prn. Apply Moisture Barrier Paste to Sacrum. Cover with Optifoam drsg. Change every 3 days and prn. Reposition at least every 2hours or as tolerated. Off-load heels with pillow. APM/LEONARD Mattress overlay. DAILY ESTIMATED NEEDS: Needs based on Severely underweight, wounds/ 36kg 35-40 kcals/kg 0417-2347 total kcals 1.5-2 g protein/kg 54-72 g total protein 25-30 mL/kg 900-1080 total fluid mLs NUTRITION DIAGNOSIS: * Swallowing difficulty R/T dysphagia as evidenced by pt is PEG dep. 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 of Jevity 1.2- meets 100% est kcal/prot needs * HOB over 30 degrees/ water flush per MD --- With consistently elev BG, rec TF change to Glucerna 1.2 @ 60ml/hr x 20 hrs to meet 1440kcal, 72g prot ADDITIONAL RECOMMENDATIONS: * PER SNF: Ht=61" WT=80lbs * Monitor BGs, need for carb controlled TF and hypoglycemics : 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 Gallbladder and bile ducts: Unremarkable. No calcified stones. No ductal dilation. Pancreas: Unremarkable. No ductal dilation. Spleen: Unremarkable. No splenomegaly. Adrenals: Unremarkable. No mass. Kidneys and ureters: Bilateral nephrolithiasis. There is a 1.4 x 1.3 x 2.1 cm stone in the right renal pelvis. There is right hydronephrosis. Stomach and bowel: Unremarkable. No obstruction. No mucosal thickening. PELVIS: Appendix: The appendix is not identified Bladder: Unremarkable. No stones. Reproductive: Unremarkable as visualized. ABDOMEN and PELVIS: Intraperitoneal space: Unremarkable. No free air. No significant fluid collection. Bones/joints: No acute fracture. No dislocation. Soft tissues: Unremarkable. Vasculature: Unremarkable. No abdominal aortic aneurysm. Lymph nodes: Unremarkable. No enlarged lymph nodes. IMPRESSION: Right hydronephrosis with a 2.1 x 1.4 x 1.3 cm stone in the right renal pelvis. trend labs will monitor (9) Nephrolithiasis (10) Dehydration (11) HELENE (acute kidney injury) (12) Infection due to ESBL-producing Escherichia coli (13) Hemorrhagic cystitis (14) Schizophrenia (15) Altered mental status (16) HTN (hypertension) (17) Abnormal LFTs (18) Noncompliance Alistair Nieves Jan 01, 2020 19:40
[2020-01-01] MEDS: Miralax 17gm pkt ORAL SCH (20:08)
[2020-01-02] VITALS: BP 74/43
[2020-01-02] MEDS: Meropenem 500 MG in NS 55 ML IVPB SCH (01:58)
[2020-01-02 04:00] VITALS: BP 123/89
[2020-01-02] MEDS: Brimonidine 0.2% Opth Sol BOTH EYES SCH ×3 (05:55→21:59)
[2020-01-02 07:41] LABS: ANION GAP 12 mmol/L (5-15); BLOOD UREA NITROGEN 59 mg/dL (7-18); CALCIUM 9.8 MG/DL (8.5-10.1); CARBON DIOXIDE 26 MMOL/L (21-32); CHLORIDE 104 MMOL/L (98-107); CREATININE 1.2 MG/DL (0.55-1.30); POTASSIUM 5.1 MMOL/L (3.5-5.1); SODIUM 142 MMOL/L (136-145)
[2020-01-02 08:00] VITALS: BP 130/66
--- NOTE | 2020-01-02 08:55 | Diagnostic Imaging Report ---
EXAM: XR Chest, 1 View CLINICAL HISTORY: SOB TECHNIQUE: Frontal view of the chest. COMPARISON: 12/31/19 FINDINGS: Lungs: Since the prior study there has been moderate improvement in bilateral perihilar mixed interstitial and alveolar traits likely representing resolving pulmonary edema. No consolidating infiltrate is identified. Pleural space: Resolution of bilateral pleural effusions. No pneumothorax. Heart: There is mild cardiomegaly. Mediastinum: Unremarkable. Bones/joints: Multiple healed right rib fractures. IMPRESSION: Improving CHF
[2020-01-02] MEDS: Multivitamins W/Minerals 15 ML UDC GT SCH (09:21)
[2020-01-02] MEDS: Docusate 100mg/10ml Liq GT SCH ×2 (09:22→17:07)
--- NOTE | 2020-01-02 09:58 | General Progress Note ---
Assessment/Plan Problem List: (1) GIB (gastrointestinal bleeding) ICD Codes: K92.2 - Gastrointestinal hemorrhage, unspecified SNOMED: 22181844 (2) Hydronephrosis ICD Codes: N13.30 - Unspecified hydronephrosis SNOMED: 62804566 (3) Decubitus skin ulcer ICD Codes: L89.90 - Pressure ulcer of unspecified site, unspecified stage SNOMED: 527700840 (4) Renal failure ICD Codes: N19 - Unspecified kidney failure SNOMED: 06001403 (5) Sepsis ICD Codes: A41.9 - Sepsis, unspecified organism SNOMED: 64191645 (6) Obstructive uropathy ICD Codes: N13.9 - Obstructive and reflux uropathy, unspecified SNOMED: 8697139 (7) Hematuria ICD Codes: R31.9 - Hematuria, unspecified SNOMED: 24155615 Status: stable Assessment/Plan: monitor for bleeding. cbc daily. iv ppi. GI and gu appreciated. stool ob positive but h/h stable without signs of bleeding- hgb stable. IV abx per id follow up cultures. covid- ?dc isolation- defer to id. monitor cxr. skin care. Possible endoscopy per GI if emergent. Tylenol for fever. Subjective ROS Limited/Unobtainable: No Constitutional: Reports: malaise, weakness HEENT: Reports: no symptoms Cardiovascular: Reports: no symptoms Respiratory: Reports: shortness of breath Gastrointestinal/Abdominal: Reports: difficulty swallowing Genitourinary: Reports: no symptoms Neurologic/Psychiatric: Reports: pre-existing deficit Endocrine: Reports: no symptoms Hematologic/Lymphatic: Reports: anemia Allergies: Coded Allergies: MORPHINE (Verified Allergy, Unknown, 07/18/09) All Systems: reviewed and negative except above Subjective no overnight events. no fevers or chills. withdrawn and confused.. covid neg x 2. Remains on IV antibiotics for UTI. No hematuria or melena noted. Tolerating G-tube feedings. on iv lasix. cxr with decreased chf. bun trending up. Objective Last 24 Hour Vital Signs Date Time Temp Pulse Resp B/P (MAP) Pulse Ox O2 Delivery O2 Flow Rate FiO2 01/02/20 09:21 73 130/66 01/02/20 08:00 98.9 73 18 130/66 (87) 94 01/02/20 04:00 97.2 92 20 123/89 (100) 96 01/02/20 00:00 97.2 67 20 74/43 (53) 96 01/01/20 21:00 Nasal Cannula 2.0 01/01/20 20:00 97.2 83 20 121/68 (85) 96 01/01/20 16:00 97.2 74 20 114/59 (77) 96 01/01/20 12:00 97.7 77 20 119/69 (86) 96 Intake and Output 01/01/20 01/02/20 19:00 07:00 Intake Total 895 ml 860 ml Output Total 1200 ml 1000 ml Balance -305 ml -140 ml Intake Free Water 200 ml IV Total 355 ml Tube Feeding 540 ml 660 ml Output Urine Total 1200 ml 1000 ml # Voids 2 Laboratory Tests 01/02/20 06:30: Sodium Level 142, Potassium Level 5.1, Chloride Level 104, Carbon Dioxide Level 26, Anion Gap 12, Blood Urea Nitrogen 59H, Creatinine 1.2, Estimat Glomerular Filtration Rate 43.3, Glucose Level 96, Calcium Level 9.8 01/02/20 08:48: Arterial Blood pH 7.481H, Arterial Blood Partial Pressure CO2 32.8L, Arterial Blood Partial Pressure O2 93.2, Arterial Blood HCO3 23.9, Arterial Blood Oxygen Saturation 97.9, Arterial Blood Base Excess 0.9, Jonah Test Positive Height (Feet): 5 Height (Inches): 3.00 Weight (Pounds): 107 Objective General Appearance: WD/WN, lethargic, confused, thin EENT: normal ENT inspection Neck: non-tender, normal alignment, supple Cardiovascular: normal peripheral pulses, normal rate, regular rhythm Respiratory/Chest: chest wall non-tender, lungs clear, normal breath sounds, no respiratory distress Abdomen: normal bowel sounds, non tender, soft, no organomegaly Edema: no edema noted Arm (L), no edema noted Arm (R), no edema noted Leg (L), no edema noted Leg (R), no edema noted Pedal (L), no edema noted Pedal (R), no edema noted Generalized Neurologic: alert, disoriented, unresponsive Skin: normal pigmentation Clayton Scales MD Jan 02, 2020 09:58
--- NOTE | 2020-01-02 10:08 | Urology Progress Note ---
Assessment/Plan Status: stable Assessment/Plan: 1. Right-sided hydronephrosis which appears to be chronic. 2. Right-sided nephrolithiasis. 3. Urinary tract infection. 4. Hematuria. 5. Proteinuria. 6. Urinary retention. 7. Probable neurogenic bladder. monitor clinically abx as ordered canseco indwelling hand irrigated and do PRN voiding trial at some point tx of stone electively if feasible renal fxn stable blood transfusion PRN consider nephrostomy Subjective Allergies: Coded Allergies: MORPHINE (Verified Allergy, Unknown, 07/18/09) Subjective all noted, confused, looks comfortable, transfused, low grade fever Objective Last 24 Hour Vital Signs Date Time Temp Pulse Resp B/P (MAP) Pulse Ox O2 Delivery O2 Flow Rate FiO2 01/02/20 09:21 73 130/66 01/02/20 08:00 98.9 73 18 130/66 (87) 94 01/02/20 04:00 97.2 92 20 123/89 (100) 96 01/02/20 00:00 97.2 67 20 74/43 (53) 96 01/01/20 21:00 Nasal Cannula 2.0 01/01/20 20:00 97.2 83 20 121/68 (85) 96 01/01/20 16:00 97.2 74 20 114/59 (77) 96 01/01/20 12:00 97.7 77 20 119/69 (86) 96 Intake and Output 01/01/20 01/02/20 19:00 07:00 Intake Total 895 ml 860 ml Output Total 1200 ml 1000 ml Balance -305 ml -140 ml Intake Free Water 200 ml IV Total 355 ml Tube Feeding 540 ml 660 ml Output Urine Total 1200 ml 1000 ml # Voids 2 Microbiology Date/Time Source Procedure Growth Status 12/28/19 14:45 Nasopharynx Coronavirus COVID-19 PCR (JEREMY) - Final Complete 12/24/19 20:15 Urine,Clean Catch Urine Culture - Final Escherichia Coli - Esbl Complete 12/24/19 21:00 Rectum - Final NO CARBAPENEM-RESISTANT ENTEROBACTERI... Complete Current Medications Medications (Trade) Dose Ordered Sig/Marcos Route PRN Reason Start Time Stop Time Status Last Admin Dose Admin Acetaminophen (Tylenol) 650 mg Q4H PRN ORAL Temp >100.5 12/24/19 22:30 01/23/20 22:29 01/01/20 09:08 Al Hydroxide/Mg Hydroxide (Mylanta) 30 ml Q4HR PRN ORAL upset stomach 12/24/19 22:30 01/23/20 22:29 Amlodipine Besylate (Norvasc) 5 mg DAILY GT 12/25/19 09:00 01/24/20 08:59 01/02/20 09:21 Bisacodyl (Dulcolax) 10 mg DAILYPRN PRN RECTAL Constipation 12/25/19 00:15 03/24/20 00:14 Brimonidine Tartrate (Alphagan) 1 drop Q8HR BOTH EYES 12/25/19 14:00 03/24/20 13:59 01/02/20 05:55 Docusate Sodium (Colace) 100 mg TWICE A DAY GT 12/25/19 09:00 01/24/20 08:59 01/02/20 09:22 Furosemide (Lasix) 20 mg BID IV 01/01/20 18:00 01/31/20 17:59 01/02/20 09:22 Loperamide HCl (Imodium) 2 mg Q4H PRN ORAL Diarrhea 12/29/19 15:45 01/28/20 15:44 12/29/19 15:41 Meropenem 500 mg/ Sodium Chloride 55 ml @ 110 mls/hr Q12H IVPB 12/27/19 14:00 01/02/20 23:59 01/02/20 01:58 Multivitamins (Multivitamins W/ Minerals 15ml Liquid) 15 ml DAILY GT 12/25/19 09:00 01/24/20 08:59 01/02/20 09:21 Pantoprazole (Protonix) 40 mg DAILY@0630 ORAL 12/25/19 06:30 01/24/20 06:29 01/02/20 05:55 Polyethylene Glycol (Miralax) 17 gm BEDTIME ORAL 12/27/19 21:00 01/26/20 20:59 01/01/20 20:08 Potassium Chloride (K-Dur) 40 meq DAILY ORAL 01/01/20 13:45 03/31/20 13:44 01/02/20 09:22 Laboratory Tests 01/02/20 06:30: Sodium Level 142, Potassium Level 5.1, Chloride Level 104, Carbon Dioxide Level 26, Anion Gap 12, Blood Urea Nitrogen 59H, Creatinine 1.2, Estimat Glomerular Filtration Rate 43.3, Glucose Level 96, Calcium Level 9.8 01/02/20 08:48: Arterial Blood pH 7.481H, Arterial Blood Partial Pressure CO2 32.8L, Arterial Blood Partial Pressure O2 93.2, Arterial Blood HCO3 23.9, Arterial Blood Oxygen Saturation 97.9, Arterial Blood Base Excess 0.9, Jonah Test Positive Height (Feet): 5 Height (Inches): 3.00 Weight (Pounds): 107 Objective exam stable canseco indwelling, urine yellow with debris Ladarius Larios MD Jan 02, 2020 10:08
--- NOTE | 2020-01-02 10:18 | Pulmonology Progress Note ---
Assessment/Plan Assessment/Plan IMPRESSION: pneumonia, worsening pulmonary edema, respiratory insufficiency history and evidence of aspiration, E coli UTI, right-sided hydronephrosis, schizophrenia, bipolar disorder, hypertension, rule out COVID, anemia, possible GI bleed. leukocytosis PLAN monitor imaging- somewhat better ABG better isolation cultures noted aspiration precautions feed continue lasix gi follow up for possible EGD monitor WBC ID clearance impression, plan, and exam edited and reviewed in detail care discussed with RN Subjective ROS Limited/Unobtainable: Yes Constitutional: Reports: fever, other - last night Allergies: Coded Allergies: MORPHINE (Verified Allergy, Unknown, 07/18/09) All Systems: reviewed and negative except above Subjective care noted remains ill worsening pulmonary edema - seems better with increase in lasix renal function noted isolation / some congestion Objective Last 24 Hour Vital Signs Date Time Temp Pulse Resp B/P (MAP) Pulse Ox O2 Delivery O2 Flow Rate FiO2 01/02/20 09:21 73 130/66 01/02/20 09:00 Nasal Cannula 2.0 01/02/20 08:00 98.9 73 18 130/66 (87) 94 01/02/20 04:00 97.2 92 20 123/89 (100) 96 01/02/20 00:00 97.2 67 20 74/43 (53) 96 01/01/20 21:00 Nasal Cannula 2.0 01/01/20 20:00 97.2 83 20 121/68 (85) 96 01/01/20 16:00 97.2 74 20 114/59 (77) 96 01/01/20 12:00 97.7 77 20 119/69 (86) 96 Intake and Output 01/01/20 01/02/20 19:00 07:00 Intake Total 895 ml 860 ml Output Total 1200 ml 1000 ml Balance -305 ml -140 ml Intake Free Water 200 ml IV Total 355 ml Tube Feeding 540 ml 660 ml Output Urine Total 1200 ml 1000 ml # Voids 2 Objective GENERAL: An ill-appearing female, nonverbal. NECK: Supple. LUNGS: Moderate breath sounds and reduced rhonchi. CARDIAC: S1 and S2. Regular rate and rhythm. Soft systolic murmur left upper sternal border. No rubs or gallops. ABDOMEN: Soft, nontender. G-tube in place. EXTREMITIES: Significant contractures. No edema. Reduced skin turgor. NEUROLOGIC: Responds to painful stimuli x4. nonverbal reviewed and edited General Appearance: no acute distress HEENT: other - dry mouth, poor dentition Abdomen: soft, non tender, other - GT feeding Extremities: no edema Neurologic/Psychiatric: unresponsiveness Laboratory Tests 01/02/20 06:30: Sodium Level 142, Potassium Level 5.1, Chloride Level 104, Carbon Dioxide Level 26, Anion Gap 12, Blood Urea Nitrogen 59H, Creatinine 1.2, Estimat Glomerular Filtration Rate 43.3, Glucose Level 96, Calcium Level 9.8 01/02/20 08:48: Arterial Blood pH 7.481H, Arterial Blood Partial Pressure CO2 32.8L, Arterial Blood Partial Pressure O2 93.2, Arterial Blood HCO3 23.9, Arterial Blood Oxygen Saturation 97.9, Arterial Blood Base Excess 0.9, Jonah Test Positive Current Medications Medications (Trade) Dose Ordered Sig/Marcos Route PRN Reason Start Time Stop Time Status Last Admin Dose Admin Acetaminophen (Tylenol) 650 mg Q4H PRN ORAL Temp >100.5 12/24/19 22:30 01/23/20 22:29 01/01/20 09:08 Al Hydroxide/Mg Hydroxide (Mylanta) 30 ml Q4HR PRN ORAL upset stomach 12/24/19 22:30 01/23/20 22:29 Amlodipine Besylate (Norvasc) 5 mg DAILY GT 12/25/19 09:00 01/24/20 08:59 01/02/20 09:21 Bisacodyl (Dulcolax) 10 mg DAILYPRN PRN RECTAL Constipation 12/25/19 00:15 03/24/20 00:14 Brimonidine Tartrate (Alphagan) 1 drop Q8HR BOTH EYES 12/25/19 14:00 03/24/20 13:59 01/02/20 05:55 Docusate Sodium (Colace) 100 mg TWICE A DAY GT 12/25/19 09:00 01/24/20 08:59 01/02/20 09:22 Furosemide (Lasix) 20 mg BID IV 01/01/20 18:00 01/31/20 17:59 01/02/20 09:22 Loperamide HCl (Imodium) 2 mg Q4H PRN ORAL Diarrhea 12/29/19 15:45 01/28/20 15:44 12/29/19 15:41 Meropenem 500 mg/ Sodium Chloride 55 ml @ 110 mls/hr Q12H IVPB 12/27/19 14:00 01/02/20 23:59 01/02/20 01:58 Multivitamins (Multivitamins W/ Minerals 15ml Liquid) 15 ml DAILY GT 12/25/19 09:00 01/24/20 08:59 01/02/20 09:21 Pantoprazole (Protonix) 40 mg DAILY@0630 ORAL 12/25/19 06:30 01/24/20 06:29 01/02/20 05:55 Polyethylene Glycol (Miralax) 17 gm BEDTIME ORAL 12/27/19 21:00 01/26/20 20:59 01/01/20 20:08 Potassium Chloride (K-Dur) 40 meq DAILY ORAL 01/01/20 13:45 03/31/20 13:44 01/02/20 09:22 Ac Bernal MD Jan 02, 2020 10:18
[2020-01-02 12:00] VITALS: BP 140/92
--- NOTE | 2020-01-02 12:28 | GI Progress Note ---
Assessment/Plan Problems: (1) Abnormal LFTs ICD Codes: R94.5 - Abnormal results of liver function studies SNOMED: 820304236 (2) GIB (gastrointestinal bleeding) ICD Codes: K92.2 - Gastrointestinal hemorrhage, unspecified SNOMED: 68413230 (3) Renal failure ICD Codes: N19 - Unspecified kidney failure SNOMED: 01409667 (4) Hematuria ICD Codes: R31.9 - Hematuria, unspecified SNOMED: 04876914 (5) Noncompliance ICD Codes: Z91.19 - Patient's noncompliance with other medical treatment and regimen SNOMED: 9679111 Status Narrative Discussed with Dr. Keyes. Assessment/Plan 1. CVA. 2. Contractures. 3. Malnutrition. 4. Diabetes 5. Gastritis. 6. Hypertension. 7. Pneumonia. 8. Renal disease. 9. Schizophrenia. 10. Anemia stable H&H for 3 days stool ob positive x1 but repeat neg on miralax GTF ppi daily no overt GIB s/p one unit prbc patient off of isolation now no family member available for consent consider emergency consent and GI procedures if needed The patient was seen and examined at bedside and all new and available data was reviewed in the patients chart. I agree with the above findings, impression and plan. (Patient seen earlier today. Signature stamp does not reflect patient encounter time.). - Oli Keyes MD Subjective Subjective limited Objective Last 24 Hour Vital Signs Date Time Temp Pulse Resp B/P (MAP) Pulse Ox O2 Delivery O2 Flow Rate FiO2 01/02/20 09:21 73 130/66 01/02/20 09:00 Nasal Cannula 2.0 01/02/20 08:00 98.9 73 18 130/66 (87) 94 01/02/20 04:00 97.2 92 20 123/89 (100) 96 01/02/20 00:00 97.2 67 20 74/43 (53) 96 01/01/20 21:00 Nasal Cannula 2.0 01/01/20 20:00 97.2 83 20 121/68 (85) 96 01/01/20 16:00 97.2 74 20 114/59 (77) 96 Intake and Output 01/01/20 01/02/20 19:00 07:00 Intake Total 895 ml 860 ml Output Total 1200 ml 1000 ml Balance -305 ml -140 ml Intake Free Water 200 ml IV Total 355 ml Tube Feeding 540 ml 660 ml Output Urine Total 1200 ml 1000 ml # Voids 2 Laboratory Tests Test 01/02/20 06:30 01/02/20 08:48 Sodium Level 142 MMOL/L (136-145) Potassium Level 5.1 MMOL/L (3.5-5.1) Chloride Level 104 MMOL/L (98-107) Carbon Dioxide Level 26 MMOL/L (21-32) Anion Gap 12 mmol/L (5-15) Blood Urea Nitrogen 59 mg/dL (7-18) H Creatinine 1.2 MG/DL (0.55-1.30) Estimat Glomerular Filtration Rate 43.3 mL/min (>60) Glucose Level 96 MG/DL (74-106) Calcium Level 9.8 MG/DL (8.5-10.1) Arterial Blood pH 7.481 (7.350-7.450) Arterial Blood Partial Pressure CO2 32.8 mmHg (35.0-45.0) L Arterial Blood Partial Pressure O2 93.2 mmHg (75.0-100.0) Arterial Blood HCO3 23.9 mmol/L (22.0-26.0) Arterial Blood Oxygen Saturation 97.9 % (95-100) Arterial Blood Base Excess 0.9 (-2-2) Jonah Test Positive Height (Feet): 5 Height (Inches): 3.00 Weight (Pounds): 107 General Appearance: WD/WN, no apparent distress, alert Cardiovascular: normal rate Respiratory/Chest: normal breath sounds, no respiratory distress Abdominal Exam: normal bowel sounds, non tender, soft, GT site Extremities: non-tender Ana Braga [employer] EX[employer]ER Jan 02, 2020 12:28
--- NOTE | 2020-01-02 13:14 | Infectious Diseases Prog Note ---
Assessment/Plan Assessment/Plan A 1. E.coli esbl urinary tract infection treated 2. Right-sided hydronephrosis with stone in the kidney. 3. Schizophrenia. 4. Bipolar disorder. 5. Hypertension. 6. 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 Anemia P 1. Discontinue meropenen 2. will follow up cultures Subjective Neurologic: Reports: confusion Allergies: Coded Allergies: MORPHINE (Verified Allergy, Unknown, 07/18/09) Objective Vital Signs Last 24 Hour Vital Signs Date Time Temp Pulse Resp B/P (MAP) Pulse Ox O2 Delivery O2 Flow Rate FiO2 01/02/20 12:00 99.2 95 20 140/92 (108) 96 01/02/20 09:21 73 130/66 01/02/20 09:00 Nasal Cannula 2.0 01/02/20 08:00 98.9 73 18 130/66 (87) 94 01/02/20 04:00 97.2 92 20 123/89 (100) 96 01/02/20 00:00 97.2 67 20 74/43 (53) 96 01/01/20 21:00 Nasal Cannula 2.0 01/01/20 20:00 97.2 83 20 121/68 (85) 96 01/01/20 16:00 97.2 74 20 114/59 (77) 96 Height (Feet): 5 Height (Inches): 3.00 Weight (Pounds): 107 General Appearance: no acute distress, cachetic HEENT: mucous membranes moist Respiratory/Chest: lungs clear Cardiovascular: normal rate Abdomen: soft, non tender, other - GT feeding Genitourinary: other - Bryant catheter Extremities: no edema Neurologic/Psychiatric: alert, disoriented Musculoskeletal: atrophy Laboratory Tests Test 01/02/20 06:30 01/02/20 08:48 White Blood Count Pending Red Blood Count Pending Hemoglobin Pending Hematocrit Pending Mean Corpuscular Volume Pending Mean Corpuscular Hemoglobin Pending Mean Corpuscular Hemoglobin Concent Pending Red Cell Distribution Width Pending Platelet Count Pending Mean Platelet Volume Pending Neutrophils (%) (Auto) Pending Lymphocytes (%) (Auto) Pending Monocytes (%) (Auto) Pending Eosinophils (%) (Auto) Pending Basophils (%) (Auto) Pending Sodium Level 142 MMOL/L (136-145) Potassium Level 5.1 MMOL/L (3.5-5.1) Chloride Level 104 MMOL/L (98-107) Carbon Dioxide Level 26 MMOL/L (21-32) Anion Gap 12 mmol/L (5-15) Blood Urea Nitrogen 59 mg/dL (7-18) H Creatinine 1.2 MG/DL (0.55-1.30) Estimat Glomerular Filtration Rate 43.3 mL/min (>60) Glucose Level 96 MG/DL (74-106) Calcium Level 9.8 MG/DL (8.5-10.1) Arterial Blood pH 7.481 (7.350-7.450) Arterial Blood Partial Pressure CO2 32.8 mmHg (35.0-45.0) L Arterial Blood Partial Pressure O2 93.2 mmHg (75.0-100.0) Arterial Blood HCO3 23.9 mmol/L (22.0-26.0) Arterial Blood Oxygen Saturation 97.9 % (95-100) Arterial Blood Base Excess 0.9 (-2-2) Jonah Test Positive Current Medications Medications (Trade) Dose Ordered Sig/Marcos Route PRN Reason Start Time Stop Time Status Last Admin Dose Admin Acetaminophen (Tylenol) 650 mg Q4H PRN ORAL Temp >100.5 12/24/19 22:30 01/23/20 22:29 01/01/20 09:08 Al Hydroxide/Mg Hydroxide (Mylanta) 30 ml Q4HR PRN ORAL upset stomach 12/24/19 22:30 01/23/20 22:29 Amlodipine Besylate (Norvasc) 5 mg DAILY GT 12/25/19 09:00 01/24/20 08:59 01/02/20 09:21 Bisacodyl (Dulcolax) 10 mg DAILYPRN PRN RECTAL Constipation 12/25/19 00:15 03/24/20 00:14 Brimonidine Tartrate (Alphagan) 1 drop Q8HR BOTH EYES 12/25/19 14:00 03/24/20 13:59 01/02/20 05:55 Docusate Sodium (Colace) 100 mg TWICE A DAY GT 12/25/19 09:00 01/24/20 08:59 01/02/20 09:22 Furosemide (Lasix) 20 mg BID IV 01/01/20 18:00 01/31/20 17:59 01/02/20 09:22 Loperamide HCl (Imodium) 2 mg Q4H PRN ORAL Diarrhea 12/29/19 15:45 01/28/20 15:44 12/29/19 15:41 Meropenem 500 mg/ Sodium Chloride 55 ml @ 110 mls/hr Q12H IVPB 12/27/19 14:00 01/07/20 13:59 01/02/20 01:58 Multivitamins (Multivitamins W/ Minerals 15ml Liquid) 15 ml DAILY GT 12/25/19 09:00 01/24/20 08:59 01/02/20 09:21 Pantoprazole (Protonix) 40 mg DAILY@0630 ORAL 12/25/19 06:30 01/24/20 06:29 01/02/20 05:55 Polyethylene Glycol (Miralax) 17 gm BEDTIME ORAL 12/27/19 21:00 01/26/20 20:59 01/01/20 20:08 Potassium Chloride (K-Dur) 40 meq DAILY ORAL 01/01/20 13:45 03/31/20 13:44 01/02/20 09:22 Jacobo Seals MD Jan 02, 2020 13:14
--- NOTE | 2020-01-02 15:24 | Nephrology Progress Note ---
Assessment/Plan Problem List: (1) Hydronephrosis (2) Hematuria (3) Nephrolithiasis (4) Obstructive uropathy (5) Dehydration (6) HELENE (acute kidney injury) (7) Infection due to ESBL-producing Escherichia coli (8) CHF (congestive heart failure) (9) Schizophrenia Plan chf better, bun higher stop lasix urine clearing, antibiotics, poor candidate for procedure, acei and coreg Subjective ROS Limited/Unobtainable: Yes Objective Objective Last 24 Hour Vital Signs Date Time Temp Pulse Resp B/P (MAP) Pulse Ox O2 Delivery O2 Flow Rate FiO2 01/02/20 12:00 99.2 95 20 140/92 (108) 96 01/02/20 09:21 73 130/66 01/02/20 09:00 Nasal Cannula 2.0 01/02/20 08:00 98.9 73 18 130/66 (87) 94 01/02/20 04:00 97.2 92 20 123/89 (100) 96 01/02/20 00:00 97.2 67 20 74/43 (53) 96 01/01/20 21:00 Nasal Cannula 2.0 01/01/20 20:00 97.2 83 20 121/68 (85) 96 01/01/20 16:00 97.2 74 20 114/59 (77) 96 Intake and Output 01/01/20 01/02/20 19:00 07:00 Intake Total 895 ml 860 ml Output Total 1200 ml 1000 ml Balance -305 ml -140 ml Intake Free Water 200 ml IV Total 355 ml Tube Feeding 540 ml 660 ml Output Urine Total 1200 ml 1000 ml # Voids 2 Laboratory Tests 01/02/20 06:30: White Blood Count [Pending], Red Blood Count [Pending], Hemoglobin [Pending], Hematocrit [Pending], Mean Corpuscular Volume [Pending], Mean Corpuscular Hemoglobin [Pending], Mean Corpuscular Hemoglobin Concent [Pending], Red Cell Distribution Width [Pending], Platelet Count [Pending], Mean Platelet Volume [ Pending], Neutrophils (%) (Auto) [Pending], Lymphocytes (%) (Auto) [Pending], Monocytes (%) (Auto) [Pending], Eosinophils (%) (Auto) [Pending], Basophils (%) (Auto) [Pending], Sodium Level 142, Potassium Level 5.1, Chloride Level 104, Carbon Dioxide Level 26, Anion Gap 12, Blood Urea Nitrogen 59H, Creatinine 1.2, Estimat Glomerular Filtration Rate 43.3, Glucose Level 96, Calcium Level 9.8 01/02/20 08:48: Arterial Blood pH 7.481H, Arterial Blood Partial Pressure CO2 32.8L, Arterial Blood Partial Pressure O2 93.2, Arterial Blood HCO3 23.9, Arterial Blood Oxygen Saturation 97.9, Arterial Blood Base Excess 0.9, Jonah Test Positive Height (Feet): 5 Height (Inches): 3.00 Weight (Pounds): 107 General Appearance: lethargic, confused EENT: normal ENT inspection Neck: normal alignment Cardiovascular: normal rate, regular rhythm Respiratory/Chest: lungs clear Neurologic: disoriented Objective less hematuria, continue hydration,iv rate reduced atb per ID García Alcaraz MD Jan 02, 2020 15:24
[2020-01-02 15:41] LABS: BASOPHILS % (AUTO) 0.8 % (0.0-2.0); EOSINOPHILS % (AUTO) 0.7 % (0.0-3.0); HEMATOCRIT 32.2 % (37.0-47.0); HEMOGLOBIN 10.2 G/DL (12.0-16.0); LYMPHOCYTES % (AUTO) 42.4 % (20.0-45.0); MEAN CORPUSCULAR VOLUME 90 FL (80-99); MONOCYTES % (AUTO) 6.1 % (1.0-10.0); NEUTROPHILS % (AUTO) 50.1 % (45.0-75.0); PLATELET COUNT 176 K/UL (150-450); RED BLOOD COUNT 3.58 M/UL (4.20-5.40); RED CELL DISTRIBUTION WIDTH 15.7 % (11.6-14.8); WHITE BLOOD COUNT 9.4 K/UL (4.8-10.8)
[2020-01-02 16:00] VITALS: BP 120/76
[2020-01-02 20:00] VITALS: BP 114/53
[2020-01-02] MEDS: Carvedilol 6.25mg Tab ORAL SCH (21:59)
[2020-01-02] MEDS: Miralax 17gm pkt ORAL SCH (21:59)
--- NOTE | 2020-01-02 22:06 | Surgery Progress Note ---
Surgery Progress Note Subjective Symptoms: improved, tolerating diet, passing flatus Objective Last 24 Hour Vital Signs Date Time Temp Pulse Resp B/P (MAP) Pulse Ox O2 Delivery O2 Flow Rate FiO2 01/02/20 21:59 80 114/53 01/02/20 20:00 99.2 80 18 114/53 (73) 98 01/02/20 16:00 99.7 100 18 120/76 (91) 98 01/02/20 16:00 140/92 01/02/20 12:00 99.2 95 20 140/92 (108) 96 01/02/20 09:21 73 130/66 01/02/20 09:00 Nasal Cannula 2.0 01/02/20 08:00 98.9 73 18 130/66 (87) 94 01/02/20 04:00 97.2 92 20 123/89 (100) 96 01/02/20 00:00 97.2 67 20 74/43 (53) 96 I&O Intake and Output 01/01/20 01/02/20 19:00 07:00 Intake Total 895 ml 980 ml Output Total 1200 ml 1000 ml Balance -305 ml -20 ml Intake Free Water 260 ml IV Total 355 ml Tube Feeding 540 ml 720 ml Output Urine Total 1200 ml 1000 ml # Voids 2 Dressing: saturated Wound: clean Cardiovascular: RSR Respiratory: decreased breath sounds Abdomen: soft, present bowel sounds Extremities: no cyanosis Laboratory Tests Test 01/02/20 06:30 01/02/20 08:48 01/02/20 15:15 Sodium Level 142 MMOL/L (136-145) Potassium Level 5.1 MMOL/L (3.5-5.1) Chloride Level 104 MMOL/L (98-107) Carbon Dioxide Level 26 MMOL/L (21-32) Anion Gap 12 mmol/L (5-15) Blood Urea Nitrogen 59 mg/dL (7-18) H Creatinine 1.2 MG/DL (0.55-1.30) Estimat Glomerular Filtration Rate 43.3 mL/min (>60) Glucose Level 96 MG/DL (74-106) Calcium Level 9.8 MG/DL (8.5-10.1) Arterial Blood pH 7.481 (7.350-7.450) Arterial Blood Partial Pressure CO2 32.8 mmHg (35.0-45.0) L Arterial Blood Partial Pressure O2 93.2 mmHg (75.0-100.0) Arterial Blood HCO3 23.9 mmol/L (22.0-26.0) Arterial Blood Oxygen Saturation 97.9 % (95-100) Arterial Blood Base Excess 0.9 (-2-2) Jonah Test Positive White Blood Count 9.4 K/UL (4.8-10.8) Red Blood Count 3.58 M/UL (4.20-5.40) L Hemoglobin 10.2 G/DL (12.0-16.0) L Hematocrit 32.2 % (37.0-47.0) L Mean Corpuscular Volume 90 FL (80-99) Mean Corpuscular Hemoglobin 28.4 PG (27.0-31.0) Mean Corpuscular Hemoglobin Concent 31.6 G/DL (32.0-36.0) L Red Cell Distribution Width 15.7 % (11.6-14.8) H Platelet Count 176 K/UL (150-450) Mean Platelet Volume 7.9 FL (6.5-10.1) Neutrophils (%) (Auto) 50.1 % (45.0-75.0) Lymphocytes (%) (Auto) 42.4 % (20.0-45.0) Monocytes (%) (Auto) 6.1 % (1.0-10.0) Eosinophils (%) (Auto) 0.7 % (0.0-3.0) Basophils (%) (Auto) 0.8 % (0.0-2.0) Plan Problems: (1) Urinary tract infection (2) Hematuria (3) Hydronephrosis (4) Decubitus skin ulcer Assessment & Plan: Pt presented on admission with Non-blanching erythema without fluctuance L elbow. DTPI L Iliac. (L)1.5cm x (W)2.5cm. Base of wound is indurated and maroon in colour. No evidence of further skin breakdown periwound. Sacral hyperpigmentation from previous wound noted to Sacrum.Non-blanching erythema noted to sacrococcygeal are and cleft of buttocks. An area of hyperpigmentation noted to L trochanteric.Historical scar noted to L Hip. An area of hyperpigmentation noted to R trochanteric. Non-blanching erythema without fluctuance L elbow. Both heels are boggy with non-blanchable erythema. Tx.Plan:Apply Cavilon Skin Barrier to L Iliac. Cover with Optifoam drsg. Change every 7 days and prn. Apply Cavilon Skin Barrier to R and L trochanter. Cover each site with Optifoam drsg. Change every 7 days and prn. Apply Cavilon Skin Barrier to each heel. Cover each heel with Optifoam drsg. Change every 7 days and prn. Apply Moisture Barrier Paste to Sacrum. Cover with Optifoam drsg. Change every 3 days and prn. Reposition at least every 2hours or as tolerated. Off-load heels with pillow. APM/LEONARD Mattress overlay. DAILY ESTIMATED NEEDS: Needs based on Severely underweight, wounds/ 36kg 35-40 kcals/kg 2056-3110 total kcals 1.5-2 g protein/kg 54-72 g total protein 25-30 mL/kg 900-1080 total fluid mLs NUTRITION DIAGNOSIS: * Swallowing difficulty R/T dysphagia as evidenced by pt is PEG dep. * Increased kcal/prot needs R/T severely underweight status, wound heaing as evidenced by 76% IBW w/ BMI of 15.2, admitted w/ multiple wounds including non-blanching erythema at L elbow, sacrococcyx, BL heels, and DTPI at L Iliac, CURRENT TF:Jevity 1.2 @ 60ml/hr x 20 hrs ENTERAL NUTRITION RECOMMENDATIONS: Jevity 1.2 @ 60ml/hr x 20 hrs to provide 1200ml, 1440kcal, 66g prot, 968ml free water * Maintain [employer] TF order of Jevity 1.2- meets 100% est kcal/prot needs * HOB over 30 degrees/ water flush per MD --- With consistently elev BG, rec TF change to Glucerna 1.2 @ 60ml/hr x 20 hrs to meet 1440kcal, 72g prot ADDITIONAL RECOMMENDATIONS: * PER SNF: Ht=61" WT=80lbs * Monitor BGs, need for carb controlled TF and hypoglycemics : pt on Jevity 1.2 [employer], hyperglycemia x 1 on 12/24 (208) * Monitor lytes, replete as needed * Wound healing: add Vit C 500mg QD + Judson BID (5) Renal failure (6) Obstructive uropathy (7) Sepsis (8) GIB (gastrointestinal bleeding) Assessment & Plan: stable no active bleeding CT noted Liver: Unremarkable. Gallbladder and bile ducts: Unremarkable. No calcified stones. No ductal dilation. Pancreas: Unremarkable. No ductal dilation. Spleen: Unremarkable. No splenomegaly. Adrenals: Unremarkable. No mass. Kidneys and ureters: Bilateral nephrolithiasis. There is a 1.4 x 1.3 x 2.1 cm stone in the right renal pelvis. There is right hydronephrosis. Stomach and bowel: Unremarkable. No obstruction. No mucosal thickening. PELVIS: Appendix: The appendix is not identified Bladder: Unremarkable. No stones. Reproductive: Unremarkable as visualized. ABDOMEN and PELVIS: Intraperitoneal space: Unremarkable. No free air. No significant fluid collection. Bones/joints: No acute fracture. No dislocation. Soft tissues: Unremarkable. Vasculature: Unremarkable. No abdominal aortic aneurysm. Lymph nodes: Unremarkable. No enlarged lymph nodes. IMPRESSION: Right hydronephrosis with a 2.1 x 1.4 x 1.3 cm stone in the right renal pelvis. trend labs will monitor (9) Nephrolithiasis (10) Dehydration (11) HELENE (acute kidney injury) (12) Infection due to ESBL-producing Escherichia coli (13) Hemorrhagic cystitis (14) Schizophrenia (15) Altered mental status (16) HTN (hypertension) (17) Abnormal LFTs (18) Noncompliance Alistair Nieves Jan 02, 2020 22:06
[2020-01-03] VITALS: BP_SYST 116; BP_SYST 140; BP_DIAS 64; BP_DIAS 76
[2020-01-03 04:00] VITALS: BP 113/59
[2020-01-03] MEDS: Brimonidine 0.2% Opth Sol BOTH EYES SCH ×3 (06:06→22:53)
[2020-01-03 08:00] VITALS: BP_SYST 116; BP_SYST 129; BP_DIAS 62; BP_DIAS 82
[2020-01-03 08:10] LABS: BASOPHILS % (AUTO) 0.5 % (0.0-2.0); EOSINOPHILS % (AUTO) 0.6 % (0.0-3.0); HEMATOCRIT 28.4 % (37.0-47.0); HEMOGLOBIN 9.5 G/DL (12.0-16.0); MEAN CORPUSCULAR VOLUME 86 FL (80-99); MONOCYTES % (AUTO) 6.1 % (1.0-10.0); NEUTROPHILS % (AUTO) 47.8 % (45.0-75.0); PLATELET COUNT 178 K/UL (150-450); RED CELL DISTRIBUTION WIDTH 14.3 % (11.6-14.8); WHITE BLOOD COUNT 9.2 K/UL (4.8-10.8)
[2020-01-03] MEDS: Carvedilol 6.25mg Tab ORAL SCH ×2 (08:18→21:00)
[2020-01-03] MEDS: Docusate 100mg/10ml Liq GT SCH ×2 (08:18→17:33)
[2020-01-03] MEDS: Multivitamins W/Minerals 15 ML UDC GT SCH (08:18)
[2020-01-03 08:30] LABS: ANION GAP 10 mmol/L (5-15); BLOOD UREA NITROGEN 78 mg/dL (7-18); CALCIUM 9.4 MG/DL (8.5-10.1); CARBON DIOXIDE 27 MMOL/L (21-32); CHLORIDE 105 MMOL/L (98-107); CREATININE 1.5 MG/DL (0.55-1.30); POTASSIUM 5.6 MMOL/L (3.5-5.1); SODIUM 142 MMOL/L (136-145)
--- NOTE | 2020-01-03 08:51 | General Progress Note ---
Assessment/Plan Status: stable Assessment/Plan: 1. CVA. 2. Contractures. 3. Malnutrition. 4. Diabetes 5. Gastritis. 6. Hypertension. 7. Pneumonia. 8. Renal disease. 9. Schizophrenia. 10. Anemia stable H&H for few days stool ob positive x1 but repeat neg on miralax GTF ppi daily no overt GIB patient off of isolation now no family member available for consent consider emergency consent and GI procedures if needed Subjective ROS Limited/Unobtainable: No Allergies: Coded Allergies: MORPHINE (Verified Allergy, Unknown, 07/18/09) Objective Last 24 Hour Vital Signs Date Time Temp Pulse Resp B/P (MAP) Pulse Ox O2 Delivery O2 Flow Rate FiO2 01/03/20 08:18 80 116/62 01/03/20 08:18 116/62 01/03/20 08:00 98.9 80 19 116/62 (80) 97 01/03/20 04:00 97.6 70 18 113/59 (77) 98 01/03/20 00:00 98.0 76 18 116/64 (81) 96 01/02/20 21:59 80 114/53 01/02/20 21:00 Nasal Cannula 2.0 01/02/20 20:00 99.2 80 18 114/53 (73) 98 01/02/20 16:00 99.7 100 18 120/76 (91) 98 01/02/20 16:00 140/92 01/02/20 12:00 99.2 95 20 140/92 (108) 96 01/02/20 09:21 73 130/66 01/02/20 09:00 Nasal Cannula 2.0 Intake and Output 01/02/20 01/03/20 19:00 07:00 Intake Total 700 ml 400 ml Output Total 800 ml 250 ml Balance -100 ml 150 ml Intake Free Water 160 ml 100 ml Tube Feeding 540 ml 300 ml Output Urine Total 800 ml 250 ml # Bowel Movements 1 Laboratory Tests 01/02/20 15:15: White Blood Count 9.4, Red Blood Count 3.58L, Hemoglobin 10.2L, Hematocrit 32.2L , Mean Corpuscular Volume 90, Mean Corpuscular Hemoglobin 28.4, Mean Corpuscular Hemoglobin Concent 31.6L, Red Cell Distribution Width 15.7H, Platelet Count 176, Mean Platelet Volume 7.9, Neutrophils (%) (Auto) 50.1, Lymphocytes (%) (Auto) 42.4, Monocytes (%) (Auto) 6.1, Eosinophils (%) (Auto) 0.7, Basophils (%) (Auto) 0.8 01/03/20 07:05: White Blood Count 9.2, Red Blood Count 3.30L, Hemoglobin 9.5L, Hematocrit 28.4L , Mean Corpuscular Volume 86, Mean Corpuscular Hemoglobin 28.7, Mean Corpuscular Hemoglobin Concent 33.4, Red Cell Distribution Width 14.3, Platelet Count 178, Mean Platelet Volume 6.9, Neutrophils (%) (Auto) 47.8, Lymphocytes (% ) (Auto) 45.0, Monocytes (%) (Auto) 6.1, Eosinophils (%) (Auto) 0.6, Basophils ( %) (Auto) 0.5, Sodium Level 142, Potassium Level 5.6H, Chloride Level 105, Carbon Dioxide Level 27, Anion Gap 10, Blood Urea Nitrogen 78H, Creatinine 1.5H , Estimat Glomerular Filtration Rate 33.5, Glucose Level 151H, Calcium Level 9.4 Height (Feet): 5 Height (Inches): 3.00 Weight (Pounds): 107 General Appearance: no apparent distress EENT: normal ENT inspection Neck: supple Cardiovascular: normal rate Respiratory/Chest: decreased breath sounds Abdomen: normal bowel sounds, non tender, soft Extremities: non-tender Oli Keyes MD Jan 03, 2020 08:51
[2020-01-03] MEDS ORDERED: Sodium Polystyrene Sulfonate 15gm Powder ORAL SCH (09:45)
--- NOTE | 2020-01-03 09:45 | General Progress Note ---
Assessment/Plan Problem List: (1) GIB (gastrointestinal bleeding) ICD Codes: K92.2 - Gastrointestinal hemorrhage, unspecified SNOMED: 73253754 (2) Hydronephrosis ICD Codes: N13.30 - Unspecified hydronephrosis SNOMED: 53758500 (3) Decubitus skin ulcer ICD Codes: L89.90 - Pressure ulcer of unspecified site, unspecified stage SNOMED: 145181126 (4) Renal failure ICD Codes: N19 - Unspecified kidney failure SNOMED: 78433415 (5) Sepsis ICD Codes: A41.9 - Sepsis, unspecified organism SNOMED: 96226869 (6) Obstructive uropathy ICD Codes: N13.9 - Obstructive and reflux uropathy, unspecified SNOMED: 6397536 (7) Hematuria ICD Codes: R31.9 - Hematuria, unspecified SNOMED: 98078156 Status: stable Assessment/Plan: monitor for bleeding. cbc daily. PPI rx. GI and gu appreciated. stool ob positive but h/h stable without signs of bleeding- hgb stable. IV abx dcd by ID. cont feeds. kayexlate x 1. repeat bmp. may have to dc acei if hyperkalemia persists Subjective ROS Limited/Unobtainable: Yes Constitutional: Reports: malaise, weakness HEENT: Reports: no symptoms Cardiovascular: Reports: no symptoms Respiratory: Reports: no symptoms Gastrointestinal/Abdominal: Reports: difficulty swallowing Genitourinary: Reports: no symptoms Neurologic/Psychiatric: Reports: pre-existing deficit Endocrine: Reports: no symptoms Hematologic/Lymphatic: Reports: anemia Allergies: Coded Allergies: MORPHINE (Verified Allergy, Unknown, 07/18/09) All Systems: reviewed and negative except above Subjective no overnight events. no fevers or chills. withdrawn and confused.. covid neg x 2. off iv abx, No hematuria or melena noted. Tolerating G-tube feedings. on iv lasix. cxr with decreased chf. bun trending up. K high this am Objective Last 24 Hour Vital Signs Date Time Temp Pulse Resp B/P (MAP) Pulse Ox O2 Delivery O2 Flow Rate FiO2 01/03/20 08:18 80 116/62 01/03/20 08:18 116/62 01/03/20 08:00 98.9 80 19 116/62 (80) 97 01/03/20 04:00 97.6 70 18 113/59 (77) 98 01/03/20 00:00 98.0 76 18 116/64 (81) 96 01/02/20 21:59 80 114/53 01/02/20 21:00 Nasal Cannula 2.0 01/02/20 20:00 99.2 80 18 114/53 (73) 98 01/02/20 16:00 99.7 100 18 120/76 (91) 98 01/02/20 16:00 140/92 01/02/20 12:00 99.2 95 20 140/92 (108) 96 Intake and Output 01/02/20 01/03/20 19:00 07:00 Intake Total 700 ml 400 ml Output Total 800 ml 250 ml Balance -100 ml 150 ml Intake Free Water 160 ml 100 ml Tube Feeding 540 ml 300 ml Output Urine Total 800 ml 250 ml # Bowel Movements 1 Laboratory Tests 01/02/20 15:15: White Blood Count 9.4, Red Blood Count 3.58L, Hemoglobin 10.2L, Hematocrit 32.2L , Mean Corpuscular Volume 90, Mean Corpuscular Hemoglobin 28.4, Mean Corpuscular Hemoglobin Concent 31.6L, Red Cell Distribution Width 15.7H, Platelet Count 176, Mean Platelet Volume 7.9, Neutrophils (%) (Auto) 50.1, Lymphocytes (%) (Auto) 42.4, Monocytes (%) (Auto) 6.1, Eosinophils (%) (Auto) 0.7, Basophils (%) (Auto) 0.8 01/03/20 07:05: White Blood Count 9.2, Red Blood Count 3.30L, Hemoglobin 9.5L, Hematocrit 28.4L , Mean Corpuscular Volume 86, Mean Corpuscular Hemoglobin 28.7, Mean Corpuscular Hemoglobin Concent 33.4, Red Cell Distribution Width 14.3, Platelet Count 178, Mean Platelet Volume 6.9, Neutrophils (%) (Auto) 47.8, Lymphocytes (% ) (Auto) 45.0, Monocytes (%) (Auto) 6.1, Eosinophils (%) (Auto) 0.6, Basophils ( %) (Auto) 0.5, Sodium Level 142, Potassium Level 5.6H, Chloride Level 105, Carbon Dioxide Level 27, Anion Gap 10, Blood Urea Nitrogen 78H, Creatinine 1.5H , Estimat Glomerular Filtration Rate 33.5, Glucose Level 151H, Calcium Level 9.4 Height (Feet): 5 Height (Inches): 3.00 Weight (Pounds): 107 Objective General Appearance: WD/WN, lethargic, confused, thin EENT: normal ENT inspection Neck: non-tender, normal alignment, supple Cardiovascular: normal peripheral pulses, normal rate, regular rhythm Respiratory/Chest: chest wall non-tender, lungs clear, normal breath sounds, no respiratory distress Abdomen: normal bowel sounds, non tender, soft, no organomegaly Edema: no edema noted Arm (L), no edema noted Arm (R), no edema noted Leg (L), no edema noted Leg (R), no edema noted Pedal (L), no edema noted Pedal (R), no edema noted Generalized Neurologic: alert, disoriented, unresponsive Skin: normal pigmentation Clayton Scales MD Jan 03, 2020 09:45
--- NOTE | 2020-01-03 11:04 | Pulmonology Progress Note ---
Assessment/Plan Assessment/Plan IMPRESSION: pneumonia, worsening pulmonary edema, respiratory insufficiency history and evidence of aspiration, E coli UTI, right-sided hydronephrosis, schizophrenia, bipolar disorder, hypertension, rule out COVID, anemia, possible GI bleed. leukocytosis PLAN monitor imaging for further changes monitor acid base isolation cultures noted aspiration precautions feeds as able continue lasix monitor WBC ID clearance for dc planning impression, plan, and exam edited and reviewed in detail care discussed with RN Subjective ROS Limited/Unobtainable: Yes Constitutional: Reports: fever, other - last night Allergies: Coded Allergies: MORPHINE (Verified Allergy, Unknown, 07/18/09) All Systems: reviewed and negative except above Subjective care noted remains ill worsening pulmonary edema - seems better with increase in lasix renal function noted isolation / some congestion Objective Last 24 Hour Vital Signs Date Time Temp Pulse Resp B/P (MAP) Pulse Ox O2 Delivery O2 Flow Rate FiO2 01/03/20 08:18 80 116/62 01/03/20 08:18 116/62 01/03/20 08:00 98.9 80 19 116/62 (80) 97 01/03/20 04:00 97.6 70 18 113/59 (77) 98 01/03/20 00:00 98.0 76 18 116/64 (81) 96 01/02/20 21:59 80 114/53 01/02/20 21:00 Nasal Cannula 2.0 01/02/20 20:00 99.2 80 18 114/53 (73) 98 01/02/20 16:00 99.7 100 18 120/76 (91) 98 01/02/20 16:00 140/92 01/02/20 12:00 99.2 95 20 140/92 (108) 96 Intake and Output 01/02/20 01/03/20 19:00 07:00 Intake Total 700 ml 400 ml Output Total 800 ml 250 ml Balance -100 ml 150 ml Intake Free Water 160 ml 100 ml Tube Feeding 540 ml 300 ml Output Urine Total 800 ml 250 ml # Bowel Movements 1 Objective GENERAL: An ill-appearing female, nonverbal. NECK: Supple. LUNGS: Moderate breath sounds and reduced rhonchi. CARDIAC: S1 and S2. Regular rate and rhythm. Soft systolic murmur left upper sternal border. No rubs or gallops. ABDOMEN: Soft, nontender. G-tube in place. EXTREMITIES: Significant contractures. No edema. Reduced skin turgor. NEUROLOGIC: Responds to painful stimuli x4. nonverbal reviewed and edited General Appearance: no acute distress, cachetic HEENT: mucous membranes moist Abdomen: soft, non tender, other - GT feeding Genitourinary: other - Bryant catheter Extremities: no edema Neurologic/Psychiatric: alert, disoriented Musculoskeletal: atrophy Laboratory Tests 01/02/20 15:15: White Blood Count 9.4, Red Blood Count 3.58L, Hemoglobin 10.2L, Hematocrit 32.2L , Mean Corpuscular Volume 90, Mean Corpuscular Hemoglobin 28.4, Mean Corpuscular Hemoglobin Concent 31.6L, Red Cell Distribution Width 15.7H, Platelet Count 176, Mean Platelet Volume 7.9, Neutrophils (%) (Auto) 50.1, Lymphocytes (%) (Auto) 42.4, Monocytes (%) (Auto) 6.1, Eosinophils (%) (Auto) 0.7, Basophils (%) (Auto) 0.8 01/03/20 07:05: White Blood Count 9.2, Red Blood Count 3.30L, Hemoglobin 9.5L, Hematocrit 28.4L , Mean Corpuscular Volume 86, Mean Corpuscular Hemoglobin 28.7, Mean Corpuscular Hemoglobin Concent 33.4, Red Cell Distribution Width 14.3, Platelet Count 178, Mean Platelet Volume 6.9, Neutrophils (%) (Auto) 47.8, Lymphocytes (% ) (Auto) 45.0, Monocytes (%) (Auto) 6.1, Eosinophils (%) (Auto) 0.6, Basophils ( %) (Auto) 0.5, Sodium Level 142, Potassium Level 5.6H, Chloride Level 105, Carbon Dioxide Level 27, Anion Gap 10, Blood Urea Nitrogen 78H, Creatinine 1.5H , Estimat Glomerular Filtration Rate 33.5, Glucose Level 151H, Calcium Level 9.4 Current Medications Medications (Trade) Dose Ordered Sig/Marcos Route PRN Reason Start Time Stop Time Status Last Admin Dose Admin Acetaminophen (Tylenol) 650 mg Q4H PRN ORAL Temp >100.5 12/24/19 22:30 01/23/20 22:29 01/01/20 09:08 Al Hydroxide/Mg Hydroxide (Mylanta) 30 ml Q4HR PRN ORAL upset stomach 12/24/19 22:30 01/23/20 22:29 Benazepril HCl (Lotensin) 20 mg DAILY ORAL 01/02/20 15:45 02/01/20 15:44 01/03/20 08:18 Bisacodyl (Dulcolax) 10 mg DAILYPRN PRN RECTAL Constipation 12/25/19 00:15 03/24/20 00:14 Brimonidine Tartrate (Alphagan) 1 drop Q8HR BOTH EYES 12/25/19 14:00 03/24/20 13:59 01/03/20 06:06 Carvedilol (Coreg) 6.25 mg EVERY 12 HOURS ORAL 01/02/20 21:00 02/01/20 20:59 01/03/20 08:18 Dextrose/Sodium Chloride 1,000 ml @ 50 mls/hr Q20H IV 01/03/20 11:00 02/02/20 10:59 Docusate Sodium (Colace) 100 mg TWICE A DAY GT 12/25/19 09:00 01/24/20 08:59 01/03/20 08:18 Loperamide HCl (Imodium) 2 mg Q4H PRN ORAL Diarrhea 12/29/19 15:45 01/28/20 15:44 12/29/19 15:41 Multivitamins (Multivitamins W/ Minerals 15ml Liquid) 15 ml DAILY GT 12/25/19 09:00 01/24/20 08:59 01/03/20 08:18 Pantoprazole (Protonix) 40 mg DAILY@0630 ORAL 12/25/19 06:30 01/24/20 06:29 01/03/20 06:06 Polyethylene Glycol (Miralax) 17 gm BEDTIME ORAL 12/27/19 21:00 01/26/20 20:59 01/02/20 21:59 Ac Bernal MD Jan 03, 2020 11:04
[2020-01-03] MEDS: D5 1/4NS 1000ml 1,000 ML IV SCH (11:13)
--- NOTE | 2020-01-03 11:14 | Infectious Diseases Prog Note ---
Assessment/Plan Assessment/Plan antibiotics : none A 1. e.coli esbl urinary tract infection s/p rx 2. Right-sided hydronephrosis with stone in the kidney. 3. Schizophrenia. 4. Bipolar disorder. 5. Hypertension. 6. COVID-19 negative x 2, 4.18.20, 4.21.20 P 1. continue off antibiotics 2. will follow up cultures Subjective ROS Limited/Unobtainable: Yes Allergies: Coded Allergies: MORPHINE (Verified Allergy, Unknown, 07/18/09) Objective Vital Signs Last 24 Hour Vital Signs Date Time Temp Pulse Resp B/P (MAP) Pulse Ox O2 Delivery O2 Flow Rate FiO2 01/03/20 09:00 Nasal Cannula 2.0 01/03/20 08:18 80 116/62 01/03/20 08:18 116/62 01/03/20 08:00 98.9 80 19 116/62 (80) 97 01/03/20 04:00 97.6 70 18 113/59 (77) 98 01/03/20 00:00 98.0 76 18 116/64 (81) 96 01/02/20 21:59 80 114/53 01/02/20 21:00 Nasal Cannula 2.0 01/02/20 20:00 99.2 80 18 114/53 (73) 98 01/02/20 16:00 99.7 100 18 120/76 (91) 98 01/02/20 16:00 140/92 01/02/20 12:00 99.2 95 20 140/92 (108) 96 Height (Feet): 5 Height (Inches): 3.00 Weight (Pounds): 107 Respiratory/Chest: lungs clear Cardiovascular: normal rate, regular rhythm, no gallop/murmur Abdomen: soft, non tender Extremities: no edema Laboratory Tests Test 01/02/20 15:15 01/03/20 07:05 White Blood Count 9.4 K/UL (4.8-10.8) 9.2 K/UL (4.8-10.8) Red Blood Count 3.58 M/UL (4.20-5.40) L 3.30 M/UL (4.20-5.40) L Hemoglobin 10.2 G/DL (12.0-16.0) L 9.5 G/DL (12.0-16.0) L Hematocrit 32.2 % (37.0-47.0) L 28.4 % (37.0-47.0) L Mean Corpuscular Volume 90 FL (80-99) 86 FL (80-99) Mean Corpuscular Hemoglobin 28.4 PG (27.0-31.0) 28.7 PG (27.0-31.0) Mean Corpuscular Hemoglobin Concent 31.6 G/DL (32.0-36.0) L 33.4 G/DL (32.0-36.0) Red Cell Distribution Width 15.7 % (11.6-14.8) H 14.3 % (11.6-14.8) Platelet Count 176 K/UL (150-450) 178 K/UL (150-450) Mean Platelet Volume 7.9 FL (6.5-10.1) 6.9 FL (6.5-10.1) Neutrophils (%) (Auto) 50.1 % (45.0-75.0) 47.8 % (45.0-75.0) Lymphocytes (%) (Auto) 42.4 % (20.0-45.0) 45.0 % (20.0-45.0) Monocytes (%) (Auto) 6.1 % (1.0-10.0) 6.1 % (1.0-10.0) Eosinophils (%) (Auto) 0.7 % (0.0-3.0) 0.6 % (0.0-3.0) Basophils (%) (Auto) 0.8 % (0.0-2.0) 0.5 % (0.0-2.0) Sodium Level 142 MMOL/L (136-145) Potassium Level 5.6 MMOL/L (3.5-5.1) H Chloride Level 105 MMOL/L (98-107) Carbon Dioxide Level 27 MMOL/L (21-32) Anion Gap 10 mmol/L (5-15) Blood Urea Nitrogen 78 mg/dL (7-18) H Creatinine 1.5 MG/DL (0.55-1.30) H Estimat Glomerular Filtration Rate 33.5 mL/min (>60) Glucose Level 151 MG/DL (74-106) H Calcium Level 9.4 MG/DL (8.5-10.1) Current Medications Medications (Trade) Dose Ordered Sig/Marcos Route PRN Reason Start Time Stop Time Status Last Admin Dose Admin Acetaminophen (Tylenol) 650 mg Q4H PRN ORAL Temp >100.5 12/24/19 22:30 01/23/20 22:29 01/01/20 09:08 Al Hydroxide/Mg Hydroxide (Mylanta) 30 ml Q4HR PRN ORAL upset stomach 12/24/19 22:30 01/23/20 22:29 Benazepril HCl (Lotensin) 20 mg DAILY ORAL 01/02/20 15:45 02/01/20 15:44 01/03/20 08:18 Bisacodyl (Dulcolax) 10 mg DAILYPRN PRN RECTAL Constipation 12/25/19 00:15 03/24/20 00:14 Brimonidine Tartrate (Alphagan) 1 drop Q8HR BOTH EYES 12/25/19 14:00 03/24/20 13:59 01/03/20 06:06 Carvedilol (Coreg) 6.25 mg EVERY 12 HOURS ORAL 01/02/20 21:00 02/01/20 20:59 01/03/20 08:18 Dextrose/Sodium Chloride 1,000 ml @ 50 mls/hr Q20H IV 01/03/20 11:00 02/02/20 10:59 Docusate Sodium (Colace) 100 mg TWICE A DAY GT 12/25/19 09:00 01/24/20 08:59 01/03/20 08:18 Loperamide HCl (Imodium) 2 mg Q4H PRN ORAL Diarrhea 12/29/19 15:45 01/28/20 15:44 12/29/19 15:41 Multivitamins (Multivitamins W/ Minerals 15ml Liquid) 15 ml DAILY GT 12/25/19 09:00 01/24/20 08:59 01/03/20 08:18 Pantoprazole (Protonix) 40 mg DAILY@0630 ORAL 12/25/19 06:30 01/24/20 06:29 01/03/20 06:06 Polyethylene Glycol (Miralax) 17 gm BEDTIME ORAL 12/27/19 21:00 01/26/20 20:59 01/02/20 21:59 Lindsay Poole MD Jan 03, 2020 11:14
[2020-01-03 12:00] VITALS: BP 112/70
--- NOTE | 2020-01-03 12:09 | Urology Progress Note ---
Assessment/Plan Status: stable Assessment/Plan: 1. Right-sided hydronephrosis which appears to be chronic. 2. Right-sided nephrolithiasis. 3. Urinary tract infection. 4. Hematuria. 5. Proteinuria. 6. Urinary retention. 7. Probable neurogenic bladder. monitor clinically s/p abx canseco indwelling hand irrigated and do PRN voiding trial at some point tx of stone electively if feasible renal fxn stable blood transfusion PRN consider nephrostomy Subjective Allergies: Coded Allergies: MORPHINE (Verified Allergy, Unknown, 07/18/09) Subjective all noted, confused, looks comfortable, transfused, low grade fever Objective Last 24 Hour Vital Signs Date Time Temp Pulse Resp B/P (MAP) Pulse Ox O2 Delivery O2 Flow Rate FiO2 01/03/20 09:00 Nasal Cannula 2.0 01/03/20 08:18 80 116/62 01/03/20 08:18 116/62 01/03/20 08:00 98.9 80 19 116/62 (80) 97 01/03/20 04:00 97.6 70 18 113/59 (77) 98 01/03/20 00:00 98.0 76 18 116/64 (81) 96 01/02/20 21:59 80 114/53 01/02/20 21:00 Nasal Cannula 2.0 01/02/20 20:00 99.2 80 18 114/53 (73) 98 01/02/20 16:00 99.7 100 18 120/76 (91) 98 01/02/20 16:00 140/92 Intake and Output 01/02/20 01/03/20 19:00 07:00 Intake Total 700 ml 400 ml Output Total 800 ml 250 ml Balance -100 ml 150 ml Intake Free Water 160 ml 100 ml Tube Feeding 540 ml 300 ml Output Urine Total 800 ml 250 ml # Bowel Movements 1 Microbiology Date/Time Source Procedure Growth Status 12/28/19 14:45 Nasopharynx Coronavirus COVID-19 PCR ([facility]EREMY) - Final Complete 12/24/19 20:15 Urine,Clean Catch Urine Culture - Final Escherichia Coli - Esbl Complete 12/24/19 21:00 Rectum - Final NO CARBAPENEM-RESISTANT ENTEROBACTERI... Complete Current Medications Medications (Trade) Dose Ordered Sig/Marcos Route PRN Reason Start Time Stop Time Status Last Admin Dose Admin Acetaminophen (Tylenol) 650 mg Q4H PRN ORAL Temp >100.5 12/24/19 22:30 01/23/20 22:29 01/01/20 09:08 Al Hydroxide/Mg Hydroxide (Mylanta) 30 ml Q4HR PRN ORAL upset stomach 12/24/19 22:30 01/23/20 22:29 Benazepril HCl (Lotensin) 20 mg DAILY ORAL 01/02/20 15:45 02/01/20 15:44 01/03/20 08:18 Bisacodyl (Dulcolax) 10 mg DAILYPRN PRN RECTAL Constipation 12/25/19 00:15 03/24/20 00:14 Brimonidine Tartrate (Alphagan) 1 drop Q8HR BOTH EYES 12/25/19 14:00 03/24/20 13:59 01/03/20 06:06 Carvedilol (Coreg) 6.25 mg EVERY 12 HOURS ORAL 01/02/20 21:00 02/01/20 20:59 01/03/20 08:18 Dextrose/Sodium Chloride 1,000 ml @ 50 mls/hr Q20H IV 01/03/20 11:00 02/02/20 10:59 01/03/20 11:13 Docusate Sodium (Colace) 100 mg TWICE A DAY GT 12/25/19 09:00 01/24/20 08:59 01/03/20 08:18 Loperamide HCl (Imodium) 2 mg Q4H PRN ORAL Diarrhea 12/29/19 15:45 01/28/20 15:44 12/29/19 15:41 Multivitamins (Multivitamins W/ Minerals 15ml Liquid) 15 ml DAILY GT 12/25/19 09:00 01/24/20 08:59 01/03/20 08:18 Pantoprazole (Protonix) 40 mg DAILY@0630 ORAL 12/25/19 06:30 01/24/20 06:29 01/03/20 06:06 Polyethylene Glycol (Miralax) 17 gm BEDTIME ORAL 12/27/19 21:00 01/26/20 20:59 01/02/20 21:59 Laboratory Tests 01/02/20 15:15: White Blood Count 9.4, Red Blood Count 3.58L, Hemoglobin 10.2L, Hematocrit 32.2L , Mean Corpuscular Volume 90, Mean Corpuscular Hemoglobin 28.4, Mean Corpuscular Hemoglobin Concent 31.6L, Red Cell Distribution Width 15.7H, Platelet Count 176, Mean Platelet Volume 7.9, Neutrophils (%) (Auto) 50.1, Lymphocytes (%) (Auto) 42.4, Monocytes (%) (Auto) 6.1, Eosinophils (%) (Auto) 0.7, Basophils (%) (Auto) 0.8 01/03/20 07:05: White Blood Count 9.2, Red Blood Count 3.30L, Hemoglobin 9.5L, Hematocrit 28.4L , Mean Corpuscular Volume 86, Mean Corpuscular Hemoglobin 28.7, Mean Corpuscular Hemoglobin Concent 33.4, Red Cell Distribution Width 14.3, Platelet Count 178, Mean Platelet Volume 6.9, Neutrophils (%) (Auto) 47.8, Lymphocytes (% ) (Auto) 45.0, Monocytes (%) (Auto) 6.1, Eosinophils (%) (Auto) 0.6, Basophils ( %) (Auto) 0.5, Sodium Level 142, Potassium Level 5.6H, Chloride Level 105, Carbon Dioxide Level 27, Anion Gap 10, Blood Urea Nitrogen 78H, Creatinine 1.5H , Estimat Glomerular Filtration Rate 33.5, Glucose Level 151H, Calcium Level 9.4 Height (Feet): 5 Height (Inches): 3.00 Weight (Pounds): 107 Objective exam stable canseco indwelling, urine yellow with debris Ladarius Larios MD Jan 03, 2020 12:09
--- NOTE | 2020-01-03 13:34 | Surgery Progress Note ---
Surgery Progress Note Subjective Additional Comments canseco with good output labs improved comfortable TF off Objective Last 24 Hour Vital Signs Date Time Temp Pulse Resp B/P (MAP) Pulse Ox O2 Delivery O2 Flow Rate FiO2 01/03/20 12:00 98.7 82 19 112/70 (84) 98 01/03/20 09:00 Nasal Cannula 2.0 01/03/20 08:18 80 116/62 01/03/20 08:18 116/62 01/03/20 08:00 98.9 80 19 116/62 (80) 97 01/03/20 04:00 97.6 70 18 113/59 (77) 98 01/03/20 00:00 98.0 76 18 116/64 (81) 96 01/02/20 21:59 80 114/53 01/02/20 21:00 Nasal Cannula 2.0 01/02/20 20:00 99.2 80 18 114/53 (73) 98 01/02/20 16:00 99.7 100 18 120/76 (91) 98 01/02/20 16:00 140/92 I&O Intake and Output 01/02/20 01/03/20 19:00 07:00 Intake Total 700 ml 400 ml Output Total 800 ml 250 ml Balance -100 ml 150 ml Intake Free Water 160 ml 100 ml Tube Feeding 540 ml 300 ml Output Urine Total 800 ml 250 ml # Bowel Movements 1 Dressing: other Wound: other Drains: other Cardiovascular: RSR Respiratory: decreased breath sounds Abdomen: soft, non-tender, present bowel sounds Extremities: no tenderness, no cyanosis Laboratory Tests Test 01/02/20 15:15 01/03/20 07:05 White Blood Count 9.4 K/UL (4.8-10.8) 9.2 K/UL (4.8-10.8) Red Blood Count 3.58 M/UL (4.20-5.40) L 3.30 M/UL (4.20-5.40) L Hemoglobin 10.2 G/DL (12.0-16.0) L 9.5 G/DL (12.0-16.0) L Hematocrit 32.2 % (37.0-47.0) L 28.4 % (37.0-47.0) L Mean Corpuscular Volume 90 FL (80-99) 86 FL (80-99) Mean Corpuscular Hemoglobin 28.4 PG (27.0-31.0) 28.7 PG (27.0-31.0) Mean Corpuscular Hemoglobin Concent 31.6 G/DL (32.0-36.0) L 33.4 G/DL (32.0-36.0) Red Cell Distribution Width 15.7 % (11.6-14.8) H 14.3 % (11.6-14.8) Platelet Count 176 K/UL (150-450) 178 K/UL (150-450) Mean Platelet Volume 7.9 FL (6.5-10.1) 6.9 FL (6.5-10.1) Neutrophils (%) (Auto) 50.1 % (45.0-75.0) 47.8 % (45.0-75.0) Lymphocytes (%) (Auto) 42.4 % (20.0-45.0) 45.0 % (20.0-45.0) Monocytes (%) (Auto) 6.1 % (1.0-10.0) 6.1 % (1.0-10.0) Eosinophils (%) (Auto) 0.7 % (0.0-3.0) 0.6 % (0.0-3.0) Basophils (%) (Auto) 0.8 % (0.0-2.0) 0.5 % (0.0-2.0) Sodium Level 142 MMOL/L (136-145) Potassium Level 5.6 MMOL/L (3.5-5.1) H Chloride Level 105 MMOL/L (98-107) Carbon Dioxide Level 27 MMOL/L (21-32) Anion Gap 10 mmol/L (5-15) Blood Urea Nitrogen 78 mg/dL (7-18) H Creatinine 1.5 MG/DL (0.55-1.30) H Estimat Glomerular Filtration Rate 33.5 mL/min (>60) Glucose Level 151 MG/DL (74-106) H Calcium Level 9.4 MG/DL (8.5-10.1) Plan Problems: (1) Urinary tract infection (2) Hematuria (3) Hydronephrosis (4) Decubitus skin ulcer Assessment & Plan: Pt presented on admission with Non-blanching erythema without fluctuance L elbow. DTPI L Iliac. (L)1.5cm x (W)2.5cm. Base of wound is indurated and maroon in colour. No evidence of further skin breakdown periwound. Sacral hyperpigmentation from previous wound noted to Sacrum.Non-blanching erythema noted to sacrococcygeal are and cleft of buttocks. An area of hyperpigmentation noted to L trochanteric.Historical scar noted to L Hip. An area of hyperpigmentation noted to R trochanteric. Non-blanching erythema without fluctuance L elbow. Both heels are boggy with non-blanchable erythema. Tx.Plan:Apply Cavilon Skin Barrier to L Iliac. Cover with Optifoam drsg. Change every 7 days and prn. Apply Cavilon Skin Barrier to R and L trochanter. Cover each site with Optifoam drsg. Change every 7 days and prn. Apply Cavilon Skin Barrier to each heel. Cover each heel with Optifoam drsg. Change every 7 days and prn. Apply Moisture Barrier Paste to Sacrum. Cover with Optifoam drsg. Change every 3 days and prn. Reposition at least every 2hours or as tolerated. Off-load heels with pillow. APM/LEONARD Mattress overlay. DAILY ESTIMATED NEEDS: Needs based on Severely underweight, wounds/ 36kg 35-40 kcals/kg 3215-9081 total kcals 1.5-2 g protein/kg 54-72 g total protein 25-30 mL/kg 900-1080 total fluid mLs NUTRITION DIAGNOSIS: * Swallowing difficulty R/T dysphagia as evidenced by pt is PEG dep. * Increased kcal/prot needs R/T severely underweight status, wound heaing as evidenced by 76% IBW w/ BMI of 15.2, admitted w/ multiple wounds including non-blanching erythema at L elbow, sacrococcyx, BL heels, and DTPI at L Iliac, CURRENT TF:Jevity 1.2 @ 60ml/hr x 20 hrs ENTERAL NUTRITION RECOMMENDATIONS: Jevity 1.2 @ 60ml/hr x 20 hrs to provide 1200ml, 1440kcal, 66g prot, 968ml free water * Maintain WINCHER TF order of Jevity 1.2- meets 100% est kcal/prot needs * HOB over 30 degrees/ water flush per MD --- With consistently elev BG, rec TF change to Glucerna 1.2 @ 60ml/hr x 20 hrs to meet 1440kcal, 72g prot ADDITIONAL RECOMMENDATIONS: * PER SNF: Ht=61" WT=80lbs * Monitor BGs, need for carb controlled TF and hypoglycemics : pt on Jevity 1.2 WINCHER, hyperglycemia x 1 on 12/24 (208) * Monitor lytes, replete as needed * Wound healing: add Vit C 500mg QD + Judson BID (5) Renal failure (6) Obstructive uropathy (7) Sepsis (8) GIB (gastrointestinal bleeding) Assessment & Plan: stable no active bleeding labs stable cont to monitor CT noted Liver: Unremarkable. Gallbladder and bile ducts: Unremarkable. No calcified stones. No ductal dilation. Pancreas: Unremarkable. No ductal dilation. Spleen: Unremarkable. No splenomegaly. Adrenals: Unremarkable. No mass. Kidneys and ureters: Bilateral nephrolithiasis. There is a 1.4 x 1.3 x 2.1 cm stone in the right renal pelvis. There is right hydronephrosis. Stomach and bowel: Unremarkable. No obstruction. No mucosal thickening. PELVIS: Appendix: The appendix is not identified Bladder: Unremarkable. No stones. Reproductive: Unremarkable as visualized. ABDOMEN and PELVIS: Intraperitoneal space: Unremarkable. No free air. No significant fluid collection. Bones/joints: No acute fracture. No dislocation. Soft tissues: Unremarkable. Vasculature: Unremarkable. No abdominal aortic aneurysm. Lymph nodes: Unremarkable. No enlarged lymph nodes. IMPRESSION: Right hydronephrosis with a 2.1 x 1.4 x 1.3 cm stone in the right renal pelvis. trend labs will monitor (9) Nephrolithiasis (10) Dehydration (11) HELENE (acute kidney injury) (12) Infection due to ESBL-producing Escherichia coli (13) Hemorrhagic cystitis (14) Schizophrenia (15) Altered mental status (16) HTN (hypertension) (17) Abnormal LFTs (18) Noncompliance Alistair Nieves Jan 03, 2020 13:34
[2020-01-03 16:00] VITALS: BP 116/50
--- NOTE | 2020-01-03 17:57 | Nephrology Progress Note ---
Assessment/Plan Problem List: (1) Hydronephrosis (2) Hematuria (3) Nephrolithiasis (4) Obstructive uropathy (5) Dehydration (6) HELENE (acute kidney injury) (7) Infection due to ESBL-producing Escherichia coli (8) CHF (congestive heart failure) (9) Schizophrenia Plan chf better, bun higher stop lasix urine clearing, antibiotics, poor candidate for procedure, acei and coreg, K 5.6 will respond to stopping kcl and iv fluids Subjective ROS Limited/Unobtainable: Yes Objective Objective Last 24 Hour Vital Signs Date Time Temp Pulse Resp B/P (MAP) Pulse Ox O2 Delivery O2 Flow Rate FiO2 01/03/20 16:00 98.8 64 18 116/50 (72) 97 01/03/20 12:00 98.7 82 19 112/70 (84) 98 01/03/20 09:00 Nasal Cannula 2.0 01/03/20 08:18 80 116/62 01/03/20 08:18 116/62 01/03/20 08:00 98.9 80 19 116/62 (80) 97 01/03/20 04:00 97.6 70 18 113/59 (77) 98 01/03/20 00:00 98.0 76 18 116/64 (81) 96 01/02/20 21:59 80 114/53 01/02/20 21:00 Nasal Cannula 2.0 01/02/20 20:00 99.2 80 18 114/53 (73) 98 Intake and Output 01/02/20 01/03/20 19:00 07:00 Intake Total 700 ml 400 ml Output Total 800 ml 250 ml Balance -100 ml 150 ml Intake Free Water 160 ml 100 ml Tube Feeding 540 ml 300 ml Output Urine Total 800 ml 250 ml # Bowel Movements 1 Laboratory Tests 01/03/20 07:05: White Blood Count 9.2, Red Blood Count 3.30L, Hemoglobin 9.5L, Hematocrit 28.4L , Mean Corpuscular Volume 86, Mean Corpuscular Hemoglobin 28.7, Mean Corpuscular Hemoglobin Concent 33.4, Red Cell Distribution Width 14.3, Platelet Count 178, Mean Platelet Volume 6.9, Neutrophils (%) (Auto) 47.8, Lymphocytes (% ) (Auto) 45.0, Monocytes (%) (Auto) 6.1, Eosinophils (%) (Auto) 0.6, Basophils ( %) (Auto) 0.5, Sodium Level 142, Potassium Level 5.6H, Chloride Level 105, Carbon Dioxide Level 27, Anion Gap 10, Blood Urea Nitrogen 78H, Creatinine 1.5H , Estimat Glomerular Filtration Rate 33.5, Glucose Level 151H, Calcium Level 9.4 Height (Feet): 5 Height (Inches): 3.00 Weight (Pounds): 107 General Appearance: alert, confused EENT: normal ENT inspection Neck: normal alignment Cardiovascular: normal rate, regular rhythm Respiratory/Chest: lungs clear Abdomen: soft Extremities: no edema Neurologic: disoriented Objective less hematuria, continue hydration,iv rate reduced atb per ID García Alcaraz MD Jan 03, 2020 17:57
[2020-01-03 20:00] VITALS: BP 96/53
[2020-01-03] MEDS: Miralax 17gm pkt ORAL SCH (22:28)
[2020-01-04] VITALS (10 sets, daily range): BP systolic 83–121; BP diastolic 36–87
[2020-01-04] MEDS: Brimonidine 0.2% Opth Sol BOTH EYES SCH ×3 (06:06→21:29)
--- NOTE | 2020-01-04 06:36 | General Progress Note ---
Assessment/Plan Status: stable Assessment/Plan: 1. CVA. 2. Contractures. 3. Malnutrition. 4. Diabetes 5. Gastritis. 6. Hypertension. 7. Pneumonia. 8. Renal disease. 9. Schizophrenia. 10. Anemia stable H&H for few days stool ob positive x1 but repeat neg on miralax GTF ppi daily no overt GIB patient off of isolation now no family member available for consent consider emergency consent and GI procedures if needed Subjective ROS Limited/Unobtainable: No Allergies: Coded Allergies: MORPHINE (Verified Allergy, Unknown, 07/18/09) Objective Last 24 Hour Vital Signs Date Time Temp Pulse Resp B/P (MAP) Pulse Ox O2 Delivery O2 Flow Rate FiO2 01/04/20 05:39 92/40 (57) 98 01/04/20 04:00 97.0 62 19 88/62 (71) 96 01/04/20 01:20 58 96/40 (58) 98 01/04/20 01:11 105/38 (60) 100 01/04/20 00:40 18 83/36 (52) 99 01/04/20 00:30 98.4 58 17 98/38 (58) 99 01/03/20 21:00 Nasal Cannula 2.0 01/03/20 21:00 69 96/53 01/03/20 20:00 99.2 69 19 96/53 (67) 96 01/03/20 16:00 98.8 64 18 116/50 (72) 97 01/03/20 12:00 98.7 82 19 112/70 (84) 98 01/03/20 09:00 Nasal Cannula 2.0 01/03/20 08:18 80 116/62 01/03/20 08:18 116/62 01/03/20 08:00 98.9 80 19 116/62 (80) 97 Intake and Output 01/03/20 01/04/20 19:00 07:00 Intake Total 150 ml 250 ml Output Total 400 ml Balance 150 ml -150 ml IV Total 150 ml 250 ml Output Urine Total 400 ml Laboratory Tests 01/03/20 07:05: White Blood Count 9.2, Red Blood Count 3.30L, Hemoglobin 9.5L, Hematocrit 28.4L , Mean Corpuscular Volume 86, Mean Corpuscular Hemoglobin 28.7, Mean Corpuscular Hemoglobin Concent 33.4, Red Cell Distribution Width 14.3, Platelet Count 178, Mean Platelet Volume 6.9, Neutrophils (%) (Auto) 47.8, Lymphocytes (% ) (Auto) 45.0, Monocytes (%) (Auto) 6.1, Eosinophils (%) (Auto) 0.6, Basophils ( %) (Auto) 0.5, Sodium Level 142, Potassium Level 5.6H, Chloride Level 105, Carbon Dioxide Level 27, Anion Gap 10, Blood Urea Nitrogen 78H, Creatinine 1.5H , Estimat Glomerular Filtration Rate 33.5, Glucose Level 151H, Calcium Level 9.4 Height (Feet): 5 Height (Inches): 3.00 Weight (Pounds): 107 General Appearance: no apparent distress EENT: normal ENT inspection Neck: supple Cardiovascular: normal rate Respiratory/Chest: decreased breath sounds Abdomen: normal bowel sounds, non tender, soft Extremities: non-tender Oli Keyes MD Jan 04, 2020 06:36
[2020-01-04] MEDS: D5 1/4NS 1000ml 1,000 ML IV SCH (07:00)
[2020-01-04 08:35] LABS: BASOPHILS % (AUTO) 0.5 % (0.0-2.0); EOSINOPHILS % (AUTO) 0.8 % (0.0-3.0); HEMATOCRIT 27.8 % (37.0-47.0); LYMPHOCYTES % (AUTO) 51.4 % (20.0-45.0); MEAN CORPUSCULAR VOLUME 87 FL (80-99); MONOCYTES % (AUTO) 5.4 % (1.0-10.0); NEUTROPHILS % (AUTO) 41.9 % (45.0-75.0); PLATELET COUNT 165 K/UL (150-450); RED BLOOD COUNT 3.21 M/UL (4.20-5.40); RED CELL DISTRIBUTION WIDTH 13.8 % (11.6-14.8); WHITE BLOOD COUNT 8.3 K/UL (4.8-10.8)
[2020-01-04 08:48] LABS: ANION GAP 9 mmol/L (5-15); BLOOD UREA NITROGEN 74 mg/dL (7-18); CALCIUM 8.6 MG/DL (8.5-10.1); CARBON DIOXIDE 31 MMOL/L (21-32); CHLORIDE 107 MMOL/L (98-107); CREATININE 1.3 MG/DL (0.55-1.30); POTASSIUM 4.8 MMOL/L (3.5-5.1); SODIUM 147 MMOL/L (136-145)
--- NOTE | 2020-01-04 09:08 | Pulmonology Progress Note ---
Assessment/Plan Assessment/Plan IMPRESSION: pneumonia, pulmonary edema, respiratory insufficiency history and evidence of aspiration, E coli UTI, right-sided hydronephrosis, schizophrenia, bipolar disorder, hypertension, rule out COVID, anemia, possible GI bleed. leukocytosis, hypotension PLAN monitor imaging for further changes monitor acid base isolation cultures noted aspiration precautions feeds as able continue lasix and monitor lytes; need to keep negative adjust bp meds ID clearance for dc planning impression, plan, and exam edited and reviewed in detail care discussed with RN Subjective ROS Limited/Unobtainable: Yes Constitutional: Reports: fever, other - last night Allergies: Coded Allergies: MORPHINE (Verified Allergy, Unknown, 07/18/09) All Systems: reviewed and negative except above Subjective care noted remains ill hypotensive back on iv fluids renal function noted isolation / some congestion Objective Last 24 Hour Vital Signs Date Time Temp Pulse Resp B/P (MAP) Pulse Ox O2 Delivery O2 Flow Rate FiO2 01/04/20 05:39 92/40 (57) 98 01/04/20 04:00 97.0 62 19 88/62 (71) 96 01/04/20 01:20 58 96/40 (58) 98 01/04/20 01:11 105/38 (60) 100 01/04/20 00:40 18 83/36 (52) 99 01/04/20 00:30 98.4 58 17 98/38 (58) 99 01/03/20 21:00 Nasal Cannula 2.0 01/03/20 21:00 69 96/53 01/03/20 20:00 99.2 69 19 96/53 (67) 96 01/03/20 16:00 98.8 64 18 116/50 (72) 97 01/03/20 12:00 98.7 82 19 112/70 (84) 98 Intake and Output 01/03/20 01/04/20 19:00 07:00 Intake Total 150 ml 250 ml Output Total 750 ml Balance 150 ml -500 ml IV Total 150 ml 250 ml Output Urine Total 750 ml Objective GENERAL: An ill-appearing female, nonverbal. NECK: Supple. LUNGS: Moderate breath sounds and reduced rhonchi. CARDIAC: S1 and S2. Regular rate and rhythm. Soft systolic murmur left upper sternal border. No rubs or gallops. ABDOMEN: Soft, nontender. G-tube in place. EXTREMITIES: Significant contractures. No edema. Reduced skin turgor. NEUROLOGIC: Responds to painful stimuli x4. nonverbal reviewed and edited General Appearance: no acute distress, cachetic HEENT: mucous membranes moist Abdomen: soft, non tender Genitourinary: other - Bryant catheter Extremities: no edema Neurologic/Psychiatric: alert, disoriented Musculoskeletal: atrophy Laboratory Tests 01/04/20 07:40: White Blood Count 8.3, Red Blood Count 3.21L, Hemoglobin 9.0L, Hematocrit 27.8L , Mean Corpuscular Volume 87, Mean Corpuscular Hemoglobin 28.1, Mean Corpuscular Hemoglobin Concent 32.5, Red Cell Distribution Width 13.8, Platelet Count 165, Mean Platelet Volume 7.0, Neutrophils (%) (Auto) 41.9L, Lymphocytes ( %) (Auto) 51.4H, Monocytes (%) (Auto) 5.4, Eosinophils (%) (Auto) 0.8, Basophils (%) (Auto) 0.5, Sodium Level 147H, Potassium Level 4.8, Chloride Level 107, Carbon Dioxide Level 31, Anion Gap 9, Blood Urea Nitrogen 74H, Creatinine 1.3, Estimat Glomerular Filtration Rate 39.5, Glucose Level 103, Calcium Level 8.6 Current Medications Medications (Trade) Dose Ordered Sig/Marcos Route PRN Reason Start Time Stop Time Status Last Admin Dose Admin Acetaminophen (Tylenol) 650 mg Q4H PRN ORAL Temp >100.5 12/24/19 22:30 01/23/20 22:29 01/01/20 09:08 Al Hydroxide/Mg Hydroxide (Mylanta) 30 ml Q4HR PRN ORAL upset stomach 12/24/19 22:30 01/23/20 22:29 Benazepril HCl (Lotensin) 20 mg DAILY ORAL 01/02/20 15:45 02/01/20 15:44 01/03/20 08:18 Bisacodyl (Dulcolax) 10 mg DAILYPRN PRN RECTAL Constipation 12/25/19 00:15 03/24/20 00:14 Brimonidine Tartrate (Alphagan) 1 drop Q8HR BOTH EYES 12/25/19 14:00 03/24/20 13:59 01/04/20 06:06 Carvedilol (Coreg) 6.25 mg EVERY 12 HOURS ORAL 01/02/20 21:00 02/01/20 20:59 01/03/20 08:18 Dextrose/Sodium Chloride 1,000 ml @ 50 mls/hr Q20H IV 01/03/20 11:00 02/02/20 10:59 01/03/20 11:13 Docusate Sodium (Colace) 100 mg TWICE A DAY GT 12/25/19 09:00 01/24/20 08:59 01/03/20 17:33 Loperamide HCl (Imodium) 2 mg Q4H PRN ORAL Diarrhea 12/29/19 15:45 01/28/20 15:44 12/29/19 15:41 Multivitamins (Multivitamins W/ Minerals 15ml Liquid) 15 ml DAILY GT 12/25/19 09:00 01/24/20 08:59 01/03/20 08:18 Pantoprazole (Protonix) 40 mg DAILY@0630 ORAL 12/25/19 06:30 01/24/20 06:29 01/04/20 06:29 Polyethylene Glycol (Miralax) 17 gm BEDTIME ORAL 12/27/19 21:00 01/26/20 20:59 01/03/20 22:28 Ac Bernal MD Jan 04, 2020 09:07
[2020-01-04] MEDS ORDERED: NS 250 ML IVPB SCH (09:30)
[2020-01-04] MEDS: Docusate 100mg/10ml Liq GT SCH ×2 (09:35→17:03)
[2020-01-04] MEDS: Multivitamins W/Minerals 15 ML UDC GT SCH (09:35)
--- NOTE | 2020-01-04 09:54 | General Progress Note ---
Assessment/Plan Problem List: (1) GIB (gastrointestinal bleeding) ICD Codes: K92.2 - Gastrointestinal hemorrhage, unspecified SNOMED: 38987705 (2) Hydronephrosis ICD Codes: N13.30 - Unspecified hydronephrosis SNOMED: 73677292 (3) Decubitus skin ulcer ICD Codes: L89.90 - Pressure ulcer of unspecified site, unspecified stage SNOMED: 516292394 (4) Renal failure ICD Codes: N19 - Unspecified kidney failure SNOMED: 94423618 (5) Sepsis ICD Codes: A41.9 - Sepsis, unspecified organism SNOMED: 00510229 (6) Obstructive uropathy ICD Codes: N13.9 - Obstructive and reflux uropathy, unspecified SNOMED: 5160185 (7) Hematuria ICD Codes: R31.9 - Hematuria, unspecified SNOMED: 35509703 Status: stable Assessment/Plan: monitor for bleeding. cbc daily. PPI rx. stool ob positive but h/h stable without signs of bleeding. IV abx dcd by ID. cont feeds. repeat bmp noted. monitor Na and bun/cr. monitor BP on BP meds(pressure on the low side) Subjective ROS Limited/Unobtainable: No Constitutional: Reports: malaise, weakness HEENT: Reports: no symptoms Cardiovascular: Reports: no symptoms Respiratory: Reports: no symptoms Gastrointestinal/Abdominal: Reports: difficulty swallowing Genitourinary: Reports: no symptoms Neurologic/Psychiatric: Reports: depressed, pre-existing deficit Endocrine: Reports: no symptoms Hematologic/Lymphatic: Reports: anemia Allergies: Coded Allergies: MORPHINE (Verified Allergy, Unknown, 07/18/09) All Systems: reviewed and negative except above Subjective no overnight events. no fevers or chills. withdrawn and confused.. covid neg x 2. off iv abx, No hematuria or melena noted. Tolerating G-tube feedings. On ivf. BP running on the low side. Objective Last 24 Hour Vital Signs Date Time Temp Pulse Resp B/P (MAP) Pulse Ox O2 Delivery O2 Flow Rate FiO2 01/04/20 09:15 64 106/87 01/04/20 05:39 92/40 (57) 98 01/04/20 04:00 97.0 62 19 88/62 (71) 96 01/04/20 01:20 58 96/40 (58) 98 01/04/20 01:11 105/38 (60) 100 01/04/20 00:40 18 83/36 (52) 99 01/04/20 00:30 98.4 58 17 98/38 (58) 99 01/03/20 21:00 Nasal Cannula 2.0 01/03/20 21:00 69 96/53 01/03/20 20:00 99.2 69 19 96/53 (67) 96 01/03/20 16:00 98.8 64 18 116/50 (72) 97 01/03/20 12:00 98.7 82 19 112/70 (84) 98 Intake and Output 01/03/20 01/04/20 19:00 07:00 Intake Total 150 ml 250 ml Output Total 750 ml Balance 150 ml -500 ml IV Total 150 ml 250 ml Output Urine Total 750 ml Laboratory Tests 01/04/20 07:40: White Blood Count 8.3, Red Blood Count 3.21L, Hemoglobin 9.0L, Hematocrit 27.8L , Mean Corpuscular Volume 87, Mean Corpuscular Hemoglobin 28.1, Mean Corpuscular Hemoglobin Concent 32.5, Red Cell Distribution Width 13.8, Platelet Count 165, Mean Platelet Volume 7.0, Neutrophils (%) (Auto) 41.9L, Lymphocytes ( %) (Auto) 51.4H, Monocytes (%) (Auto) 5.4, Eosinophils (%) (Auto) 0.8, Basophils (%) (Auto) 0.5, Sodium Level 147H, Potassium Level 4.8, Chloride Level 107, Carbon Dioxide Level 31, Anion Gap 9, Blood Urea Nitrogen 74H, Creatinine 1.3, Estimat Glomerular Filtration Rate 39.5, Glucose Level 103, Calcium Level 8.6 Height (Feet): 5 Height (Inches): 3.00 Weight (Pounds): 107 Objective General Appearance: WD/WN, lethargic, confused, thin EENT: normal ENT inspection Neck: non-tender, normal alignment, supple Cardiovascular: normal peripheral pulses, normal rate, regular rhythm Respiratory/Chest: chest wall non-tender, lungs clear, normal breath sounds, no respiratory distress Abdomen: normal bowel sounds, non tender, soft, no organomegaly Edema: no edema noted Arm (L), no edema noted Arm (R), no edema noted Leg (L), no edema noted Leg (R), no edema noted Pedal (L), no edema noted Pedal (R), no edema noted Generalized Neurologic: alert, disoriented, unresponsive Skin: normal pigmentation Clayton Scales MD Jan 04, 2020 09:54
--- NOTE | 2020-01-04 10:51 | Infectious Diseases Prog Note ---
Assessment/Plan Assessment/Plan antibiotics : none A 1. e.coli esbl urinary tract infection s/p rx 2. Right-sided hydronephrosis with stone in the kidney. 3. Schizophrenia. 4. Bipolar disorder. 5. Hypertension. 6. COVID-19 negative x 2, 4.18.20, 4.21.20 P 1. continue off antibiotics 2. will follow up cultures Subjective ROS Limited/Unobtainable: Yes Allergies: Coded Allergies: MORPHINE (Verified Allergy, Unknown, 07/18/09) Objective Vital Signs Last 24 Hour Vital Signs Date Time Temp Pulse Resp B/P (MAP) Pulse Ox O2 Delivery O2 Flow Rate FiO2 01/04/20 09:15 64 106/87 01/04/20 08:00 98.7 64 18 106/87 (93) 98 01/04/20 05:39 92/40 (57) 98 01/04/20 04:00 97.0 62 19 88/62 (71) 96 01/04/20 01:20 58 96/40 (58) 98 01/04/20 01:11 105/38 (60) 100 01/04/20 00:40 18 83/36 (52) 99 01/04/20 00:30 98.4 58 17 98/38 (58) 99 01/03/20 21:00 Nasal Cannula 2.0 01/03/20 21:00 69 96/53 01/03/20 20:00 99.2 69 19 96/53 (67) 96 01/03/20 16:00 98.8 64 18 116/50 (72) 97 01/03/20 12:00 98.7 82 19 112/70 (84) 98 Height (Feet): 5 Height (Inches): 3.00 Weight (Pounds): 107 Respiratory/Chest: lungs clear Cardiovascular: normal rate, regular rhythm, no gallop/murmur Abdomen: soft, non tender, other - GT Extremities: no edema Laboratory Tests Test 01/04/20 07:40 White Blood Count 8.3 K/UL (4.8-10.8) Red Blood Count 3.21 M/UL (4.20-5.40) L Hemoglobin 9.0 G/DL (12.0-16.0) L Hematocrit 27.8 % (37.0-47.0) L Mean Corpuscular Volume 87 FL (80-99) Mean Corpuscular Hemoglobin 28.1 PG (27.0-31.0) Mean Corpuscular Hemoglobin Concent 32.5 G/DL (32.0-36.0) Red Cell Distribution Width 13.8 % (11.6-14.8) Platelet Count 165 K/UL (150-450) Mean Platelet Volume 7.0 FL (6.5-10.1) Neutrophils (%) (Auto) 41.9 % (45.0-75.0) L Lymphocytes (%) (Auto) 51.4 % (20.0-45.0) H Monocytes (%) (Auto) 5.4 % (1.0-10.0) Eosinophils (%) (Auto) 0.8 % (0.0-3.0) Basophils (%) (Auto) 0.5 % (0.0-2.0) Sodium Level 147 MMOL/L (136-145) H Potassium Level 4.8 MMOL/L (3.5-5.1) Chloride Level 107 MMOL/L (98-107) Carbon Dioxide Level 31 MMOL/L (21-32) Anion Gap 9 mmol/L (5-15) Blood Urea Nitrogen 74 mg/dL (7-18) H Creatinine 1.3 MG/DL (0.55-1.30) Estimat Glomerular Filtration Rate 39.5 mL/min (>60) Glucose Level 103 MG/DL (74-106) Calcium Level 8.6 MG/DL (8.5-10.1) Current Medications Medications (Trade) Dose Ordered Sig/Marcos Route PRN Reason Start Time Stop Time Status Last Admin Dose Admin Acetaminophen (Tylenol) 650 mg Q4H PRN ORAL Temp >100.5 12/24/19 22:30 01/23/20 22:29 01/01/20 09:08 Al Hydroxide/Mg Hydroxide (Mylanta) 30 ml Q4HR PRN ORAL upset stomach 12/24/19 22:30 01/23/20 22:29 Benazepril HCl (Lotensin) 10 mg DAILY ORAL 01/05/20 09:00 02/01/20 15:44 Bisacodyl (Dulcolax) 10 mg DAILYPRN PRN RECTAL Constipation 12/25/19 00:15 03/24/20 00:14 Brimonidine Tartrate (Alphagan) 1 drop Q8HR BOTH EYES 12/25/19 14:00 03/24/20 13:59 01/04/20 06:06 Carvedilol (Coreg) 3.125 mg EVERY 12 HOURS ORAL 01/04/20 09:15 02/01/20 09:14 Dextrose/Sodium Chloride 1,000 ml @ 50 mls/hr Q20H IV 01/03/20 11:00 02/02/20 10:59 01/03/20 11:13 Docusate Sodium (Colace) 100 mg TWICE A DAY GT 12/25/19 09:00 01/24/20 08:59 01/04/20 09:35 Loperamide HCl (Imodium) 2 mg Q4H PRN ORAL Diarrhea 12/29/19 15:45 01/28/20 15:44 12/29/19 15:41 Multivitamins (Multivitamins W/ Minerals 15ml Liquid) 15 ml DAILY GT 12/25/19 09:00 01/24/20 08:59 01/04/20 09:35 Pantoprazole (Protonix) 40 mg DAILY@0630 ORAL 12/25/19 06:30 01/24/20 06:29 01/04/20 06:29 Polyethylene Glycol (Miralax) 17 gm BEDTIME ORAL 12/27/19 21:00 01/26/20 20:59 01/03/20 22:28 Lindsay Poole MD Jan 04, 2020 10:51
--- NOTE | 2020-01-04 11:51 | Diagnostic Imaging Report ---
Indication: Reason For Exam: SOB Technique: One view of the chest Comparison: 01/02/2020 Findings: 18 mm nodular opacity projected in the right upper lung overlying the posterior sixth rib is more apparent than on the prior exam due to better positioning, was also described on 12/25/2019, currently appears slightly less prominent than on that exam. The remainder of the lungs and pleural spaces are clear. There is mild elevation left hemidiaphragm. Multiple old healed right fracture deformities are again noted. The heart is upper limits normal in size. Impression: 18 mm right upper lobe nodular opacity. May reflect some residual infiltrate, but has been evident on prior recent exams and could represent a mass lesion. Recommend further follow-up radiographs with consideration for chest CT should lesion failed to resolve No acute process otherwise Other findings as noted
--- NOTE | 2020-01-04 12:18 | Nephrology Progress Note ---
Assessment/Plan Problem List: (1) Hydronephrosis (2) Hematuria (3) Nephrolithiasis (4) Obstructive uropathy (5) Dehydration (6) HELENE (acute kidney injury) (7) Infection due to ESBL-producing Escherichia coli (8) CHF (congestive heart failure) (9) Schizophrenia Plan chf better, bun higher stop lasix urine clearing, antibiotics, poor candidate for procedure, acei and coreg, K norrmal, bun still high continue iv fluids Subjective ROS Limited/Unobtainable: Yes Objective Objective Last 24 Hour Vital Signs Date Time Temp Pulse Resp B/P (MAP) Pulse Ox O2 Delivery O2 Flow Rate FiO2 01/04/20 11:54 98.1 69 18 110/83 (92) 98 01/04/20 09:15 64 106/87 01/04/20 09:00 Nasal Cannula 2.0 01/04/20 08:00 98.7 64 18 106/87 (93) 98 01/04/20 05:39 92/40 (57) 98 01/04/20 04:00 97.0 62 19 88/62 (71) 96 01/04/20 01:20 58 96/40 (58) 98 01/04/20 01:11 105/38 (60) 100 01/04/20 00:40 18 83/36 (52) 99 01/04/20 00:30 98.4 58 17 98/38 (58) 99 01/03/20 21:00 Nasal Cannula 2.0 01/03/20 21:00 69 96/53 01/03/20 20:00 99.2 69 19 96/53 (67) 96 01/03/20 16:00 98.8 64 18 116/50 (72) 97 Intake and Output 01/03/20 01/04/20 19:00 07:00 Intake Total 150 ml 310 ml Output Total 750 ml Balance 150 ml -440 ml IV Total 150 ml 250 ml Tube Feeding 60 ml Output Urine Total 750 ml Laboratory Tests 01/04/20 07:40: White Blood Count 8.3, Red Blood Count 3.21L, Hemoglobin 9.0L, Hematocrit 27.8L , Mean Corpuscular Volume 87, Mean Corpuscular Hemoglobin 28.1, Mean Corpuscular Hemoglobin Concent 32.5, Red Cell Distribution Width 13.8, Platelet Count 165, Mean Platelet Volume 7.0, Neutrophils (%) (Auto) 41.9L, Lymphocytes ( %) (Auto) 51.4H, Monocytes (%) (Auto) 5.4, Eosinophils (%) (Auto) 0.8, Basophils (%) (Auto) 0.5, Sodium Level 147H, Potassium Level 4.8, Chloride Level 107, Carbon Dioxide Level 31, Anion Gap 9, Blood Urea Nitrogen 74H, Creatinine 1.3, Estimat Glomerular Filtration Rate 39.5, Glucose Level 103, Calcium Level 8.6 Height (Feet): 5 Height (Inches): 3.00 Weight (Pounds): 107 General Appearance: alert, confused EENT: normal ENT inspection Neck: normal alignment Cardiovascular: normal rate, regular rhythm Respiratory/Chest: lungs clear Abdomen: soft Neurologic: disoriented Objective less hematuria, continue hydration,iv rate reduced atb per ID García Alcaraz MD Jan 04, 2020 12:18
--- NOTE | 2020-01-04 12:26 | Urology Progress Note ---
Assessment/Plan Status: stable Assessment/Plan: 1. Right-sided hydronephrosis which appears to be chronic. 2. Right-sided nephrolithiasis. 3. Urinary tract infection. 4. Hematuria. 5. Proteinuria. 6. Urinary retention. 7. Probable neurogenic bladder. monitor clinically s/p abx canseco indwelling hand irrigated and do PRN voiding trial at some point tx of stone electively if feasible renal fxn stable blood transfusion PRN consider nephrostomy Subjective Allergies: Coded Allergies: MORPHINE (Verified Allergy, Unknown, 07/18/09) Subjective all noted, confused, looks comfortable, transfused, low grade fever Objective Last 24 Hour Vital Signs Date Time Temp Pulse Resp B/P (MAP) Pulse Ox O2 Delivery O2 Flow Rate FiO2 01/04/20 11:54 98.1 69 18 110/83 (92) 98 01/04/20 09:15 64 106/87 01/04/20 09:00 Nasal Cannula 2.0 01/04/20 08:00 98.7 64 18 106/87 (93) 98 01/04/20 05:39 92/40 (57) 98 01/04/20 04:00 97.0 62 19 88/62 (71) 96 01/04/20 01:20 58 96/40 (58) 98 01/04/20 01:11 105/38 (60) 100 01/04/20 00:40 18 83/36 (52) 99 01/04/20 00:30 98.4 58 17 98/38 (58) 99 01/03/20 21:00 Nasal Cannula 2.0 01/03/20 21:00 69 96/53 01/03/20 20:00 99.2 69 19 96/53 (67) 96 01/03/20 16:00 98.8 64 18 116/50 (72) 97 Intake and Output 01/03/20 01/04/20 19:00 07:00 Intake Total 150 ml 310 ml Output Total 750 ml Balance 150 ml -440 ml IV Total 150 ml 250 ml Tube Feeding 60 ml Output Urine Total 750 ml Microbiology Date/Time Source Procedure Growth Status 12/28/19 14:45 Nasopharynx Coronavirus COVID-19 PCR ([facility]) - Final Complete 12/24/19 20:15 Urine,Clean Catch Urine Culture - Final Escherichia Coli - Esbl Complete 12/24/19 21:00 Rectum - Final NO CARBAPENEM-RESISTANT ENTEROBACTERI... Complete Current Medications Medications (Trade) Dose Ordered Sig/Marcos Route PRN Reason Start Time Stop Time Status Last Admin Dose Admin Acetaminophen (Tylenol) 650 mg Q4H PRN ORAL Temp >100.5 12/24/19 22:30 01/23/20 22:29 01/01/20 09:08 Al Hydroxide/Mg Hydroxide (Mylanta) 30 ml Q4HR PRN ORAL upset stomach 12/24/19 22:30 01/23/20 22:29 Benazepril HCl (Lotensin) 10 mg DAILY ORAL 01/05/20 09:00 02/01/20 15:44 Bisacodyl (Dulcolax) 10 mg DAILYPRN PRN RECTAL Constipation 12/25/19 00:15 03/24/20 00:14 Brimonidine Tartrate (Alphagan) 1 drop Q8HR BOTH EYES 12/25/19 14:00 03/24/20 13:59 01/04/20 06:06 Carvedilol (Coreg) 3.125 mg EVERY 12 HOURS ORAL 01/04/20 09:15 02/01/20 09:14 Dextrose/Sodium Chloride 1,000 ml @ 50 mls/hr Q20H IV 01/03/20 11:00 02/02/20 10:59 01/03/20 11:13 Docusate Sodium (Colace) 100 mg TWICE A DAY GT 12/25/19 09:00 01/24/20 08:59 01/04/20 09:35 Loperamide HCl (Imodium) 2 mg Q4H PRN ORAL Diarrhea 12/29/19 15:45 01/28/20 15:44 12/29/19 15:41 Multivitamins (Multivitamins W/ Minerals 15ml Liquid) 15 ml DAILY GT 12/25/19 09:00 01/24/20 08:59 01/04/20 09:35 Pantoprazole (Protonix) 40 mg DAILY@0630 ORAL 12/25/19 06:30 01/24/20 06:29 01/04/20 06:29 Polyethylene Glycol (Miralax) 17 gm BEDTIME ORAL 12/27/19 21:00 01/26/20 20:59 01/03/20 22:28 Laboratory Tests 01/04/20 07:40: White Blood Count 8.3, Red Blood Count 3.21L, Hemoglobin 9.0L, Hematocrit 27.8L , Mean Corpuscular Volume 87, Mean Corpuscular Hemoglobin 28.1, Mean Corpuscular Hemoglobin Concent 32.5, Red Cell Distribution Width 13.8, Platelet Count 165, Mean Platelet Volume 7.0, Neutrophils (%) (Auto) 41.9L, Lymphocytes ( %) (Auto) 51.4H, Monocytes (%) (Auto) 5.4, Eosinophils (%) (Auto) 0.8, Basophils (%) (Auto) 0.5, Sodium Level 147H, Potassium Level 4.8, Chloride Level 107, Carbon Dioxide Level 31, Anion Gap 9, Blood Urea Nitrogen 74H, Creatinine 1.3, Estimat Glomerular Filtration Rate 39.5, Glucose Level 103, Calcium Level 8.6 Height (Feet): 5 Height (Inches): 3.00 Weight (Pounds): 107 Objective exam stable canseco indwelling, urine yellow with debris Ladarius Larios MD Jan 04, 2020 12:26
--- NOTE | 2020-01-04 12:50 | Surgery Progress Note ---
Surgery Progress Note Subjective Additional Comments dementia, confused cxr reviewed 8 mm right upper lobe nodular opacity. May reflect some residual infiltrate, but has been evident on prior recent exams and could represent a mass lesion. Recommend further follow-up radiographs with consideration for chest CT should lesion failed to resolve Objective Last 24 Hour Vital Signs Date Time Temp Pulse Resp B/P (MAP) Pulse Ox O2 Delivery O2 Flow Rate FiO2 01/04/20 11:54 98.1 69 18 110/83 (92) 98 01/04/20 09:15 64 106/87 01/04/20 09:00 Nasal Cannula 2.0 01/04/20 08:00 98.7 64 18 106/87 (93) 98 01/04/20 05:39 92/40 (57) 98 01/04/20 04:00 97.0 62 19 88/62 (71) 96 01/04/20 01:20 58 96/40 (58) 98 01/04/20 01:11 105/38 (60) 100 01/04/20 00:40 18 83/36 (52) 99 01/04/20 00:30 98.4 58 17 98/38 (58) 99 01/03/20 21:00 Nasal Cannula 2.0 01/03/20 21:00 69 96/53 01/03/20 20:00 99.2 69 19 96/53 (67) 96 01/03/20 16:00 98.8 64 18 116/50 (72) 97 I&O Intake and Output 01/03/20 01/04/20 19:00 07:00 Intake Total 150 ml 310 ml Output Total 750 ml Balance 150 ml -440 ml IV Total 150 ml 250 ml Tube Feeding 60 ml Output Urine Total 750 ml Dressing: saturated Wound: clean Cardiovascular: RSR Respiratory: clear, decreased breath sounds Abdomen: soft, non-tender, present bowel sounds Extremities: no tenderness, no cyanosis Laboratory Tests Test 01/04/20 07:40 White Blood Count 8.3 K/UL (4.8-10.8) Red Blood Count 3.21 M/UL (4.20-5.40) L Hemoglobin 9.0 G/DL (12.0-16.0) L Hematocrit 27.8 % (37.0-47.0) L Mean Corpuscular Volume 87 FL (80-99) Mean Corpuscular Hemoglobin 28.1 PG (27.0-31.0) Mean Corpuscular Hemoglobin Concent 32.5 G/DL (32.0-36.0) Red Cell Distribution Width 13.8 % (11.6-14.8) Platelet Count 165 K/UL (150-450) Mean Platelet Volume 7.0 FL (6.5-10.1) Neutrophils (%) (Auto) 41.9 % (45.0-75.0) L Lymphocytes (%) (Auto) 51.4 % (20.0-45.0) H Monocytes (%) (Auto) 5.4 % (1.0-10.0) Eosinophils (%) (Auto) 0.8 % (0.0-3.0) Basophils (%) (Auto) 0.5 % (0.0-2.0) Sodium Level 147 MMOL/L (136-145) H Potassium Level 4.8 MMOL/L (3.5-5.1) Chloride Level 107 MMOL/L (98-107) Carbon Dioxide Level 31 MMOL/L (21-32) Anion Gap 9 mmol/L (5-15) Blood Urea Nitrogen 74 mg/dL (7-18) H Creatinine 1.3 MG/DL (0.55-1.30) Estimat Glomerular Filtration Rate 39.5 mL/min (>60) Glucose Level 103 MG/DL (74-106) Calcium Level 8.6 MG/DL (8.5-10.1) Plan Problems: (1) Urinary tract infection (2) Hematuria (3) Hydronephrosis (4) Decubitus skin ulcer Assessment & Plan: Pt presented on admission with Non-blanching erythema without fluctuance L elbow. DTPI L Iliac. (L)1.5cm x (W)2.5cm. Base of wound is indurated and maroon in colour. No evidence of further skin breakdown periwound. Sacral hyperpigmentation from previous wound noted to Sacrum.Non-blanching erythema noted to sacrococcygeal are and cleft of buttocks. An area of hyperpigmentation noted to L trochanteric.Historical scar noted to L Hip. An area of hyperpigmentation noted to R trochanteric. Non-blanching erythema without fluctuance L elbow. Both heels are boggy with non-blanchable erythema. Tx.Plan:Apply Cavilon Skin Barrier to L Iliac. Cover with Optifoam drsg. Change every 7 days and prn. Apply Cavilon Skin Barrier to R and L trochanter. Cover each site with Optifoam drsg. Change every 7 days and prn. Apply Cavilon Skin Barrier to each heel. Cover each heel with Optifoam drsg. Change every 7 days and prn. Apply Moisture Barrier Paste to Sacrum. Cover with Optifoam drsg. Change every 3 days and prn. Reposition at least every 2hours or as tolerated. Off-load heels with pillow. APM/LEONARD Mattress overlay. DAILY ESTIMATED NEEDS: Needs based on Severely underweight, wounds/ 36kg 35-40 kcals/kg 6110-6890 total kcals 1.5-2 g protein/kg 54-72 g total protein 25-30 mL/kg 900-1080 total fluid mLs NUTRITION DIAGNOSIS: * Swallowing difficulty R/T dysphagia as evidenced by pt is PEG dep. 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 1.2- meets 100% est kcal/prot needs * HOB over 30 degrees/ water flush per MD --- With consistently elev BG, rec TF change to Glucerna 1.2 @ 60ml/hr x 20 hrs to meet 1440kcal, 72g prot ADDITIONAL RECOMMENDATIONS: * PER SNF: Ht=61" WT=80lbs * Monitor BGs, need for carb controlled TF and hypoglycemics : 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 Gallbladder and bile ducts: Unremarkable. No calcified stones. No ductal dilation. Pancreas: Unremarkable. No ductal dilation. Spleen: Unremarkable. No splenomegaly. Adrenals: Unremarkable. No mass. Kidneys and ureters: Bilateral nephrolithiasis. There is a 1.4 x 1.3 x 2.1 cm stone in the right renal pelvis. There is right hydronephrosis. Stomach and bowel: Unremarkable. No obstruction. No mucosal thickening. PELVIS: Appendix: The appendix is not identified Bladder: Unremarkable. No stones. Reproductive: Unremarkable as visualized. ABDOMEN and PELVIS: Intraperitoneal space: Unremarkable. No free air. No significant fluid collection. Bones/joints: No acute fracture. No dislocation. Soft tissues: Unremarkable. Vasculature: Unremarkable. No abdominal aortic aneurysm. Lymph nodes: Unremarkable. No enlarged lymph nodes. IMPRESSION: Right hydronephrosis with a 2.1 x 1.4 x 1.3 cm stone in the right renal pelvis. trend labs will monitor (9) Nephrolithiasis (10) Dehydration (11) HELENE (acute kidney injury) (12) Infection due to ESBL-producing Escherichia coli (13) Hemorrhagic cystitis (14) Schizophrenia (15) Altered mental status (16) HTN (hypertension) (17) Abnormal LFTs (18) Noncompliance Alistair Nieves Jan 04, 2020 12:50
[2020-01-04] MEDS: Carvedilol 6.25mg Tab ORAL SCH (12:54)
[2020-01-04] MEDS: Miralax 17gm pkt ORAL SCH (21:25)
[2020-01-05] VITALS: BP 118/59
[2020-01-05 04:00] VITALS: BP 108/52
[2020-01-05] MEDS: Brimonidine 0.2% Opth Sol BOTH EYES SCH (05:34)
[2020-01-05 07:12] LABS: BASOPHILS % (AUTO) 0.7 % (0.0-2.0); EOSINOPHILS % (AUTO) 1.3 % (0.0-3.0); HEMATOCRIT 27.7 % (37.0-47.0); LYMPHOCYTES % (AUTO) 49.9 % (20.0-45.0); MEAN CORPUSCULAR VOLUME 87 FL (80-99); MONOCYTES % (AUTO) 6.3 % (1.0-10.0); NEUTROPHILS % (AUTO) 41.8 % (45.0-75.0); PLATELET COUNT 160 K/UL (150-450); RED BLOOD COUNT 3.19 M/UL (4.20-5.40); RED CELL DISTRIBUTION WIDTH 14.2 % (11.6-14.8); WHITE BLOOD COUNT 7.5 K/UL (4.8-10.8)
[2020-01-05 07:30] LABS: ANION GAP 7 mmol/L (5-15); BLOOD UREA NITROGEN 65 mg/dL (7-18); CALCIUM 9.1 MG/DL (8.5-10.1); CARBON DIOXIDE 29 MMOL/L (21-32); CHLORIDE 109 MMOL/L (98-107); CREATININE 1.3 MG/DL (0.55-1.30); POTASSIUM 4.5 MMOL/L (3.5-5.1); SODIUM 145 MMOL/L (136-145)
[2020-01-05 08:00] VITALS: BP 104/64
[2020-01-05] MEDS ORDERED: Benazepril 10mg tab ORAL SCH (09:00)
--- NOTE | 2020-01-05 09:19 | General Progress Note ---
Assessment/Plan Status: stable Assessment/Plan: 1. CVA. 2. Contractures. 3. Malnutrition. 4. Diabetes 5. Gastritis. 6. Hypertension. 7. Pneumonia. 8. Renal disease. 9. Schizophrenia. 10. Anemia stable H&H for few days stool ob positive x1 but repeat neg on miralax GTF ppi daily no overt GIB patient off of isolation now no family member available for consent consider emergency consent and GI procedures if needed Subjective ROS Limited/Unobtainable: No Allergies: Coded Allergies: MORPHINE (Verified Allergy, Unknown, 07/18/09) Objective Last 24 Hour Vital Signs Date Time Temp Pulse Resp B/P (MAP) Pulse Ox O2 Delivery O2 Flow Rate FiO2 01/05/20 08:00 98.5 63 20 104/64 (77) 95 01/05/20 04:00 98.5 63 19 108/52 (70) 93 01/05/20 00:00 98.1 60 19 118/59 (78) 98 01/04/20 21:25 66 121/64 01/04/20 21:00 Nasal Cannula 2.0 01/04/20 20:00 98.0 66 19 121/64 (83) 99 01/04/20 16:00 98.3 71 18 118/76 (90) 97 01/04/20 11:54 98.1 69 18 110/83 (92) 98 Intake and Output 01/04/20 01/05/20 19:00 07:00 Intake Total 540 ml Output Total 1100 ml Balance 540 ml -1100 ml Intake Free Water 120 ml Tube Feeding 420 ml Output Urine Total 1100 ml # Bowel Movements 1 Laboratory Tests 01/05/20 05:43: White Blood Count 7.5, Red Blood Count 3.19L, Hemoglobin 9.0L, Hematocrit 27.7L , Mean Corpuscular Volume 87, Mean Corpuscular Hemoglobin 28.3, Mean Corpuscular Hemoglobin Concent 32.6, Red Cell Distribution Width 14.2, Platelet Count 160, Mean Platelet Volume 7.3, Neutrophils (%) (Auto) 41.8L, Lymphocytes ( %) (Auto) 49.9H, Monocytes (%) (Auto) 6.3, Eosinophils (%) (Auto) 1.3, Basophils (%) (Auto) 0.7, Sodium Level 145, Potassium Level 4.5, Chloride Level 109H, Carbon Dioxide Level 29, Anion Gap 7, Blood Urea Nitrogen 65H, Creatinine 1.3, Estimat Glomerular Filtration Rate 39.5, Glucose Level 129H, Calcium Level 9.1 Height (Feet): 5 Height (Inches): 3.00 Weight (Pounds): 105 General Appearance: alert EENT: normal ENT inspection Neck: supple Cardiovascular: normal rate Respiratory/Chest: decreased breath sounds Abdomen: normal bowel sounds, non tender, soft Extremities: non-tender Oli Keyes MD Jan 05, 2020 09:19
[2020-01-05] MEDS: Docusate 100mg/10ml Liq GT SCH (09:51)
[2020-01-05] MEDS: Multivitamins W/Minerals 15 ML UDC GT SCH (09:51)
[2020-01-05] MEDS ORDERED: LORazepam Inj 2mg/ml 1ml IV SCH (10:06)
--- NOTE | 2020-01-05 10:15 | General Progress Note ---
Assessment/Plan Problem List: (1) GIB (gastrointestinal bleeding) ICD Codes: K92.2 - Gastrointestinal hemorrhage, unspecified SNOMED: 58411890 (2) Hydronephrosis ICD Codes: N13.30 - Unspecified hydronephrosis SNOMED: 45179208 (3) Decubitus skin ulcer ICD Codes: L89.90 - Pressure ulcer of unspecified site, unspecified stage SNOMED: 214418581 (4) Renal failure ICD Codes: N19 - Unspecified kidney failure SNOMED: 92506914 (5) Sepsis ICD Codes: A41.9 - Sepsis, unspecified organism SNOMED: 12230450 (6) Obstructive uropathy ICD Codes: N13.9 - Obstructive and reflux uropathy, unspecified SNOMED: 9089460 (7) Hematuria ICD Codes: R31.9 - Hematuria, unspecified SNOMED: 52344847 Status: stable Assessment/Plan: monitor for bleeding. cbc daily. PPI rx. stool ob positive but h/h stable without signs of bleeding. IV abx dcd by ID. cont feeds. repeat bmp noted. monitor Na and bun/cr. monitor BP on BP meds(pressure on the low side) Subjective ROS Limited/Unobtainable: Yes Constitutional: Reports: malaise, weakness HEENT: Reports: no symptoms Cardiovascular: Reports: no symptoms Respiratory: Reports: cough Gastrointestinal/Abdominal: Reports: difficulty swallowing Genitourinary: Reports: no symptoms Neurologic/Psychiatric: Reports: depressed, emotional problems, pre-existing deficit Endocrine: Reports: no symptoms Hematologic/Lymphatic: Reports: anemia Allergies: Coded Allergies: MORPHINE (Verified Allergy, Unknown, 07/18/09) All Systems: reviewed and negative except above Subjective no overnight events. no fevers or chills. withdrawn and confused.. covid neg x 2. off iv abx, No hematuria or melena noted. Tolerating G-tube feedings. bp stable off ivf Objective Last 24 Hour Vital Signs Date Time Temp Pulse Resp B/P (MAP) Pulse Ox O2 Delivery O2 Flow Rate FiO2 01/05/20 10:04 63 104/64 01/05/20 10:04 104/64 01/05/20 08:00 98.5 63 20 104/64 (77) 95 01/05/20 04:00 98.5 63 19 108/52 (70) 93 01/05/20 00:00 98.1 60 19 118/59 (78) 98 01/04/20 21:25 66 121/64 01/04/20 21:00 Nasal Cannula 2.0 01/04/20 20:00 98.0 66 19 121/64 (83) 99 01/04/20 16:00 98.3 71 18 118/76 (90) 97 01/04/20 11:54 98.1 69 18 110/83 (92) 98 Intake and Output 01/04/20 01/05/20 19:00 07:00 Intake Total 540 ml Output Total 1100 ml Balance 540 ml -1100 ml Intake Free Water 120 ml Tube Feeding 420 ml Output Urine Total 1100 ml # Bowel Movements 1 Laboratory Tests 01/05/20 05:43: White Blood Count 7.5, Red Blood Count 3.19L, Hemoglobin 9.0L, Hematocrit 27.7L , Mean Corpuscular Volume 87, Mean Corpuscular Hemoglobin 28.3, Mean Corpuscular Hemoglobin Concent 32.6, Red Cell Distribution Width 14.2, Platelet Count 160, Mean Platelet Volume 7.3, Neutrophils (%) (Auto) 41.8L, Lymphocytes ( %) (Auto) 49.9H, Monocytes (%) (Auto) 6.3, Eosinophils (%) (Auto) 1.3, Basophils (%) (Auto) 0.7, Sodium Level 145, Potassium Level 4.5, Chloride Level 109H, Carbon Dioxide Level 29, Anion Gap 7, Blood Urea Nitrogen 65H, Creatinine 1.3, Estimat Glomerular Filtration Rate 39.5, Glucose Level 129H, Calcium Level 9.1 Height (Feet): 5 Height (Inches): 3.00 Weight (Pounds): 105 Objective General Appearance: WD/WN, lethargic, confused, thin EENT: normal ENT inspection Neck: non-tender, normal alignment, supple Cardiovascular: normal peripheral pulses, normal rate, regular rhythm Respiratory/Chest: chest wall non-tender, lungs clear, normal breath sounds, no respiratory distress Abdomen: normal bowel sounds, non tender, soft, no organomegaly Edema: no edema noted Arm (L), no edema noted Arm (R), no edema noted Leg (L), no edema noted Leg (R), no edema noted Pedal (L), no edema noted Pedal (R), no edema noted Generalized Neurologic: alert, disoriented, unresponsive Skin: normal pigmentation Clayton Scales MD Jan 05, 2020 10:15
--- NOTE | 2020-01-05 10:28 | Infectious Diseases Prog Note ---
Assessment/Plan Assessment/Plan antibiotics : none A 1. e.coli esbl urinary tract infection s/p rx 2. Right-sided hydronephrosis with stone in the kidney. 3. Schizophrenia. 4. Bipolar disorder. 5. Hypertension. 6. COVID-19 negative x 2, 4.18.20, 4.21.20 P 1. continue off antibiotics 2. will follow up cultures Subjective ROS Limited/Unobtainable: Yes Allergies: Coded Allergies: MORPHINE (Verified Allergy, Unknown, 07/18/09) Objective Vital Signs Last 24 Hour Vital Signs Date Time Temp Pulse Resp B/P (MAP) Pulse Ox O2 Delivery O2 Flow Rate FiO2 01/05/20 10:04 63 104/64 01/05/20 10:04 104/64 01/05/20 08:00 98.5 63 20 104/64 (77) 95 01/05/20 04:00 98.5 63 19 108/52 (70) 93 01/05/20 00:00 98.1 60 19 118/59 (78) 98 01/04/20 21:25 66 121/64 01/04/20 21:00 Nasal Cannula 2.0 01/04/20 20:00 98.0 66 19 121/64 (83) 99 01/04/20 16:00 98.3 71 18 118/76 (90) 97 01/04/20 11:54 98.1 69 18 110/83 (92) 98 Height (Feet): 5 Height (Inches): 3.00 Weight (Pounds): 105 Laboratory Tests Test 01/05/20 05:43 White Blood Count 7.5 K/UL (4.8-10.8) Red Blood Count 3.19 M/UL (4.20-5.40) L Hemoglobin 9.0 G/DL (12.0-16.0) L Hematocrit 27.7 % (37.0-47.0) L Mean Corpuscular Volume 87 FL (80-99) Mean Corpuscular Hemoglobin 28.3 PG (27.0-31.0) Mean Corpuscular Hemoglobin Concent 32.6 G/DL (32.0-36.0) Red Cell Distribution Width 14.2 % (11.6-14.8) Platelet Count 160 K/UL (150-450) Mean Platelet Volume 7.3 FL (6.5-10.1) Neutrophils (%) (Auto) 41.8 % (45.0-75.0) L Lymphocytes (%) (Auto) 49.9 % (20.0-45.0) H Monocytes (%) (Auto) 6.3 % (1.0-10.0) Eosinophils (%) (Auto) 1.3 % (0.0-3.0) Basophils (%) (Auto) 0.7 % (0.0-2.0) Sodium Level 145 MMOL/L (136-145) Potassium Level 4.5 MMOL/L (3.5-5.1) Chloride Level 109 MMOL/L (98-107) H Carbon Dioxide Level 29 MMOL/L (21-32) Anion Gap 7 mmol/L (5-15) Blood Urea Nitrogen 65 mg/dL (7-18) H Creatinine 1.3 MG/DL (0.55-1.30) Estimat Glomerular Filtration Rate 39.5 mL/min (>60) Glucose Level 129 MG/DL (74-106) H Calcium Level 9.1 MG/DL (8.5-10.1) Current Medications Medications (Trade) Dose Ordered Sig/Marcos Route PRN Reason Start Time Stop Time Status Last Admin Dose Admin Acetaminophen (Tylenol) 650 mg Q4H PRN ORAL Temp >100.5 12/24/19 22:30 01/23/20 22:29 01/01/20 09:08 Al Hydroxide/Mg Hydroxide (Mylanta) 30 ml Q4HR PRN ORAL upset stomach 12/24/19 22:30 01/23/20 22:29 Benazepril HCl (Lotensin) 10 mg DAILY ORAL 01/05/20 09:00 02/01/20 15:44 Bisacodyl (Dulcolax) 10 mg DAILYPRN PRN RECTAL Constipation 12/25/19 00:15 03/24/20 00:14 Brimonidine Tartrate (Alphagan) 1 drop Q8HR BOTH EYES 12/25/19 14:00 03/24/20 13:59 01/05/20 05:34 Carvedilol (Coreg) 3.125 mg EVERY 12 HOURS ORAL 01/04/20 09:15 02/01/20 09:14 01/04/20 21:25 Docusate Sodium (Colace) 100 mg TWICE A DAY GT 12/25/19 09:00 01/24/20 08:59 01/05/20 09:51 Loperamide HCl (Imodium) 2 mg Q4H PRN ORAL Diarrhea 12/29/19 15:45 01/28/20 15:44 12/29/19 15:41 Lorazepam (Ativan 2mg/ml 1ml) 1 mg STAT IV 01/05/20 10:06 01/05/20 11:00 01/05/20 10:18 Multivitamins (Multivitamins W/ Minerals 15ml Liquid) 15 ml DAILY GT 12/25/19 09:00 01/24/20 08:59 01/05/20 09:51 Pantoprazole (Protonix) 40 mg DAILY@0630 ORAL 12/25/19 06:30 01/24/20 06:29 01/05/20 05:34 Polyethylene Glycol (Miralax) 17 gm BEDTIME ORAL 12/27/19 21:00 01/26/20 20:59 01/04/20 21:25 Lindsay Poole MD Jan 05, 2020 10:28
--- NOTE | 2020-01-05 10:37 | Pulmonology Progress Note ---
Assessment/Plan Assessment/Plan IMPRESSION: pneumonia, pulmonary edema, respiratory insufficiency history and evidence of aspiration, E coli UTI, right-sided hydronephrosis, schizophrenia, bipolar disorder, hypertension, rule out COVID, anemia, possible GI bleed. leukocytosis, hypotension; possible pulmonary nodule PLAN Xray better cannot complete CT will monitor isolation cultures noted not candidate for surgery or any invasive procedures aspiration precautions feeds as able monitor renal function for change dc to snf adjust bp meds ID clearance for dc planning impression, plan, and exam edited and reviewed in detail care discussed with RN Subjective ROS Limited/Unobtainable: Yes Constitutional: Reports: fever, other Allergies: Coded Allergies: MORPHINE (Verified Allergy, Unknown, 07/18/09) All Systems: reviewed and negative except above Subjective care noted remains ill hemodynamics better renal function noted- near baseline isolation / some congestion Objective Last 24 Hour Vital Signs Date Time Temp Pulse Resp B/P (MAP) Pulse Ox O2 Delivery O2 Flow Rate FiO2 01/05/20 10:04 63 104/64 01/05/20 10:04 104/64 01/05/20 08:00 98.5 63 20 104/64 (77) 95 01/05/20 04:00 98.5 63 19 108/52 (70) 93 01/05/20 00:00 98.1 60 19 118/59 (78) 98 01/04/20 21:25 66 121/64 01/04/20 21:00 Nasal Cannula 2.0 01/04/20 20:00 98.0 66 19 121/64 (83) 99 01/04/20 16:00 98.3 71 18 118/76 (90) 97 01/04/20 11:54 98.1 69 18 110/83 (92) 98 Intake and Output 01/04/20 01/05/20 19:00 07:00 Intake Total 540 ml Output Total 1100 ml Balance 540 ml -1100 ml Intake Free Water 120 ml Tube Feeding 420 ml Output Urine Total 1100 ml # Bowel Movements 1 Objective GENERAL: An ill-appearing female, nonverbal. NECK: Supple. LUNGS: Moderate breath sounds and reduced rhonchi. CARDIAC: S1 and S2. Regular rate and rhythm. Soft systolic murmur left upper sternal border. No rubs or gallops. ABDOMEN: Soft, nontender. G-tube in place. EXTREMITIES: Significant contractures. No edema. Reduced skin turgor. NEUROLOGIC: Responds to painful stimuli x4. nonverbal reviewed and edited General Appearance: no acute distress, cachetic HEENT: mucous membranes moist Abdomen: soft, non tender, other - GT Genitourinary: other - Bryant catheter Extremities: no edema Neurologic/Psychiatric: alert, disoriented Musculoskeletal: atrophy Laboratory Tests 01/05/20 05:43: White Blood Count 7.5, Red Blood Count 3.19L, Hemoglobin 9.0L, Hematocrit 27.7L , Mean Corpuscular Volume 87, Mean Corpuscular Hemoglobin 28.3, Mean Corpuscular Hemoglobin Concent 32.6, Red Cell Distribution Width 14.2, Platelet Count 160, Mean Platelet Volume 7.3, Neutrophils (%) (Auto) 41.8L, Lymphocytes ( %) (Auto) 49.9H, Monocytes (%) (Auto) 6.3, Eosinophils (%) (Auto) 1.3, Basophils (%) (Auto) 0.7, Sodium Level 145, Potassium Level 4.5, Chloride Level 109H, Carbon Dioxide Level 29, Anion Gap 7, Blood Urea Nitrogen 65H, Creatinine 1.3, Estimat Glomerular Filtration Rate 39.5, Glucose Level 129H, Calcium Level 9.1 Current Medications Medications (Trade) Dose Ordered Sig/Marcos Route PRN Reason Start Time Stop Time Status Last Admin Dose Admin Acetaminophen (Tylenol) 650 mg Q4H PRN ORAL Temp >100.5 12/24/19 22:30 01/23/20 22:29 01/01/20 09:08 Al Hydroxide/Mg Hydroxide (Mylanta) 30 ml Q4HR PRN ORAL upset stomach 12/24/19 22:30 01/23/20 22:29 Benazepril HCl (Lotensin) 10 mg DAILY ORAL 01/05/20 09:00 02/01/20 15:44 Bisacodyl (Dulcolax) 10 mg DAILYPRN PRN RECTAL Constipation 12/25/19 00:15 03/24/20 00:14 Brimonidine Tartrate (Alphagan) 1 drop Q8HR BOTH EYES 12/25/19 14:00 03/24/20 13:59 01/05/20 05:34 Carvedilol (Coreg) 3.125 mg EVERY 12 HOURS ORAL 01/04/20 09:15 02/01/20 09:14 01/04/20 21:25 Docusate Sodium (Colace) 100 mg TWICE A DAY GT 12/25/19 09:00 01/24/20 08:59 01/05/20 09:51 Loperamide HCl (Imodium) 2 mg Q4H PRN ORAL Diarrhea 12/29/19 15:45 01/28/20 15:44 12/29/19 15:41 Lorazepam (Ativan 2mg/ml 1ml) 1 mg STAT IV 01/05/20 10:06 01/05/20 11:00 01/05/20 10:18 Multivitamins (Multivitamins W/ Minerals 15ml Liquid) 15 ml DAILY GT 12/25/19 09:00 01/24/20 08:59 01/05/20 09:51 Pantoprazole (Protonix) 40 mg DAILY@0630 ORAL 12/25/19 06:30 01/24/20 06:29 01/05/20 05:34 Polyethylene Glycol (Miralax) 17 gm BEDTIME ORAL 12/27/19 21:00 01/26/20 20:59 01/04/20 21:25 Ac Bernal MD Jan 05, 2020 10:37
--- NOTE | 2020-01-05 11:40 | Urology Progress Note ---
Assessment/Plan Status: stable Assessment/Plan: 1. Right-sided hydronephrosis which appears to be chronic. 2. Right-sided nephrolithiasis. 3. Urinary tract infection. 4. Hematuria. 5. Proteinuria. 6. Urinary retention. 7. Probable neurogenic bladder. monitor clinically s/p abx canseco indwelling hand irrigated and do PRN voiding trial at some point tx of stone electively if feasible renal fxn stable blood transfusion PRN consider nephrostomy Subjective Allergies: Coded Allergies: MORPHINE (Verified Allergy, Unknown, 07/18/09) Subjective all noted, confused, looks comfortable, transfused, low grade fever Objective Last 24 Hour Vital Signs Date Time Temp Pulse Resp B/P (MAP) Pulse Ox O2 Delivery O2 Flow Rate FiO2 01/05/20 10:04 63 104/64 01/05/20 10:04 104/64 01/05/20 09:00 Nasal Cannula 2.0 01/05/20 08:00 98.5 63 20 104/64 (77) 95 01/05/20 04:00 98.5 63 19 108/52 (70) 93 01/05/20 00:00 98.1 60 19 118/59 (78) 98 01/04/20 21:25 66 121/64 01/04/20 21:00 Nasal Cannula 2.0 01/04/20 20:00 98.0 66 19 121/64 (83) 99 01/04/20 16:00 98.3 71 18 118/76 (90) 97 01/04/20 11:54 98.1 69 18 110/83 (92) 98 Intake and Output 01/04/20 01/05/20 19:00 07:00 Intake Total 540 ml Output Total 1100 ml Balance 540 ml -1100 ml Intake Free Water 120 ml Tube Feeding 420 ml Output Urine Total 1100 ml # Bowel Movements 1 Microbiology Date/Time Source Procedure Growth Status 12/28/19 14:45 Nasopharynx Coronavirus COVID-19 PCR ([facility]Y) - Final Complete 12/24/19 20:15 Urine,Clean Catch Urine Culture - Final Escherichia Coli - Esbl Complete 12/24/19 21:00 Rectum - Final NO CARBAPENEM-RESISTANT ENTEROBACTERI... Complete Current Medications Medications (Trade) Dose Ordered Sig/Marcos Route PRN Reason Start Time Stop Time Status Last Admin Dose Admin Acetaminophen (Tylenol) 650 mg Q4H PRN ORAL Temp >100.5 4/17/20 22:30 01/23/20 22:29 01/01/20 09:08 Al Hydroxide/Mg Hydroxide (Mylanta) 30 ml Q4HR PRN ORAL upset stomach 12/24/19 22:30 01/23/20 22:29 Benazepril HCl (Lotensin) 10 mg DAILY ORAL 01/05/20 09:00 02/01/20 15:44 Bisacodyl (Dulcolax) 10 mg DAILYPRN PRN RECTAL Constipation 12/25/19 00:15 03/24/20 00:14 Brimonidine Tartrate (Alphagan) 1 drop Q8HR BOTH EYES 12/25/19 14:00 03/24/20 13:59 01/05/20 05:34 Carvedilol (Coreg) 3.125 mg EVERY 12 HOURS ORAL 01/04/20 09:15 02/01/20 09:14 01/04/20 21:25 Docusate Sodium (Colace) 100 mg TWICE A DAY GT 12/25/19 09:00 01/24/20 08:59 01/05/20 09:51 Loperamide HCl (Imodium) 2 mg Q4H PRN ORAL Diarrhea 12/29/19 15:45 01/28/20 15:44 12/29/19 15:41 Multivitamins (Multivitamins W/ Minerals 15ml Liquid) 15 ml DAILY GT 12/25/19 09:00 01/24/20 08:59 01/05/20 09:51 Pantoprazole (Protonix) 40 mg DAILY@0630 ORAL 12/25/19 06:30 01/24/20 06:29 01/05/20 05:34 Polyethylene Glycol (Miralax) 17 gm BEDTIME ORAL 12/27/19 21:00 01/26/20 20:59 01/04/20 21:25 Laboratory Tests 01/05/20 05:43: White Blood Count 7.5, Red Blood Count 3.19L, Hemoglobin 9.0L, Hematocrit 27.7L , Mean Corpuscular Volume 87, Mean Corpuscular Hemoglobin 28.3, Mean Corpuscular Hemoglobin Concent 32.6, Red Cell Distribution Width 14.2, Platelet Count 160, Mean Platelet Volume 7.3, Neutrophils (%) (Auto) 41.8L, Lymphocytes ( %) (Auto) 49.9H, Monocytes (%) (Auto) 6.3, Eosinophils (%) (Auto) 1.3, Basophils (%) (Auto) 0.7, Sodium Level 145, Potassium Level 4.5, Chloride Level 109H, Carbon Dioxide Level 29, Anion Gap 7, Blood Urea Nitrogen 65H, Creatinine 1.3, Estimat Glomerular Filtration Rate 39.5, Glucose Level 129H, Calcium Level 9.1 Height (Feet): 5 Height (Inches): 3.00 Weight (Pounds): 105 Objective exam stable canseco indwelling, urine yellow with debris Ladarius Larios MD Jan 05, 2020 11:40
[2020-01-05] MEDS ORDERED: BENAZEPRIL HCL10 MG ORAL (11:41)
[2020-01-05] MEDS ORDERED: CARVEDILOL3.125 MG ORAL (11:44)
[2020-01-05] MEDS ORDERED: IMODIUM2 MG ORAL (11:45)
[2020-01-05] MEDS ORDERED: POLYETHYLENE GL17 GM ORAL (11:46)
[2020-01-05 12:00] VITALS: BP 125/50
--- NOTE | 2020-01-05 12:39 | Diagnostic Imaging Report ---
Indication: Lung mass. Technique: Noncontrast CT of the chest utilizing automated exposure control. Axial, sagittal and coronal reformats presented. CT dose: Total DLP 126.3 mGycm; CTDI vol 2.1 mGy Comparison: None Findings: Please note that evaluation of the mediastinal and vascular structures is limited without the use of intravenous contrast. Also there is suboptimal patient positioning, likely related to patient contracture. Within these limitations the following observations are made: There is a 1.6 cm rounded nodule in the right upper lobe adjacent to the major fissure. There are slight spiculated margins. There are some dependent atelectatic changes in the left lower lobe. There is a 4 mm ovoid nodule in the superior segment of the left lower lobe. There is no pleural effusion or pneumothorax. Heart size within normal limits. There is no pericardial effusion. There are coronary arterial calcifications. Aortic valvular calcifications are also noted as well. Imaged portions of the thyroid grossly unremarkable. Small nonspecific mediastinal and axillary lymph nodes are noted. Gastrostomy tube is partially visualized. There are severe atherosclerotic calcifications of the proximal abdominal aorta which is normal in caliber. Thoracic aorta is normal in caliber. The bones are demineralized. There are degenerative changes in the spine. Chronic rib fractures are noted. No acute fractures appreciated. IMPRESSION: Limited exam without intravenous contrast. Exam also limited due to suboptimal patient positioning (patient contracture). Within these limitations: * 1.6 cm nodule with somewhat spiculated margins in the right upper lobe. Possibility of primary lung malignancy should be considered. Consider further evaluation with PET/CT to assess for metabolic activity. Follow-up recommended. * 4 mm ovoid nodule in the superior segment of the left lower lobe. * Dependent atelectatic changes in the left lower lobe. * Coronary arterial and aortic valvular calcifications. * Gastrostomy tube. The CT scanner at [facility] is accredited by the [employer] and the scans are performed using protocols designed to limit radiation exposure to as low as reasonably achievable to attain images of sufficient resolution adequate for diagnostic evaluation.
--- NOTE | 2020-01-05 14:13 | Surgery Progress Note ---
Surgery Progress Note Subjective Additional Comments afebrile, HD stable labs okay comfortable tolerating feeds Objective Last 24 Hour Vital Signs Date Time Temp Pulse Resp B/P (MAP) Pulse Ox O2 Delivery O2 Flow Rate FiO2 01/05/20 12:00 97.7 65 20 125/50 (75) 95 01/05/20 10:04 63 104/64 01/05/20 10:04 104/64 01/05/20 09:00 Nasal Cannula 2.0 01/05/20 08:00 98.5 63 20 104/64 (77) 95 01/05/20 04:00 98.5 63 19 108/52 (70) 93 01/05/20 00:00 98.1 60 19 118/59 (78) 98 01/04/20 21:25 66 121/64 01/04/20 21:00 Nasal Cannula 2.0 01/04/20 20:00 98.0 66 19 121/64 (83) 99 01/04/20 16:00 98.3 71 18 118/76 (90) 97 I&O Intake and Output 01/04/20 01/05/20 19:00 07:00 Intake Total 540 ml Output Total 1100 ml Balance 540 ml -1100 ml Intake Free Water 120 ml Tube Feeding 420 ml Output Urine Total 1100 ml # Bowel Movements 1 Dressing: other Wound: other Drains: other Cardiovascular: RSR Respiratory: decreased breath sounds Abdomen: soft, non-tender, present bowel sounds Extremities: no cyanosis, other Laboratory Tests Test 01/05/20 05:43 White Blood Count 7.5 K/UL (4.8-10.8) Red Blood Count 3.19 M/UL (4.20-5.40) L Hemoglobin 9.0 G/DL (12.0-16.0) L Hematocrit 27.7 % (37.0-47.0) L Mean Corpuscular Volume 87 FL (80-99) Mean Corpuscular Hemoglobin 28.3 PG (27.0-31.0) Mean Corpuscular Hemoglobin Concent 32.6 G/DL (32.0-36.0) Red Cell Distribution Width 14.2 % (11.6-14.8) Platelet Count 160 K/UL (150-450) Mean Platelet Volume 7.3 FL (6.5-10.1) Neutrophils (%) (Auto) 41.8 % (45.0-75.0) L Lymphocytes (%) (Auto) 49.9 % (20.0-45.0) H Monocytes (%) (Auto) 6.3 % (1.0-10.0) Eosinophils (%) (Auto) 1.3 % (0.0-3.0) Basophils (%) (Auto) 0.7 % (0.0-2.0) Sodium Level 145 MMOL/L (136-145) Potassium Level 4.5 MMOL/L (3.5-5.1) Chloride Level 109 MMOL/L (98-107) H Carbon Dioxide Level 29 MMOL/L (21-32) Anion Gap 7 mmol/L (5-15) Blood Urea Nitrogen 65 mg/dL (7-18) H Creatinine 1.3 MG/DL (0.55-1.30) Estimat Glomerular Filtration Rate 39.5 mL/min (>60) Glucose Level 129 MG/DL (74-106) H Calcium Level 9.1 MG/DL (8.5-10.1) Plan Problems: (1) Urinary tract infection (2) Hematuria (3) Hydronephrosis (4) Decubitus skin ulcer Assessment & Plan: Pt presented on admission with Non-blanching erythema without fluctuance L elbow. DTPI L Iliac. (L)1.5cm x (W)2.5cm. Base of wound is indurated and maroon in colour. No evidence of further skin breakdown periwound. Sacral hyperpigmentation from previous wound noted to Sacrum.Non-blanching erythema noted to sacrococcygeal are and cleft of buttocks. An area of hyperpigmentation noted to L trochanteric.Historical scar noted to L Hip. An area of hyperpigmentation noted to R trochanteric. Non-blanching erythema without fluctuance L elbow. Both heels are boggy with non-blanchable erythema. Tx.Plan:Apply Cavilon Skin Barrier to L Iliac. Cover with Optifoam drsg. Change every 7 days and prn. Apply Cavilon Skin Barrier to R and L trochanter. Cover each site with Optifoam drsg. Change every 7 days and prn. Apply Cavilon Skin Barrier to each heel. Cover each heel with Optifoam drsg. Change every 7 days and prn. Apply Moisture Barrier Paste to Sacrum. Cover with Optifoam drsg. Change every 3 days and prn. Reposition at least every 2hours or as tolerated. Off-load heels with pillow. APM/LEONARD Mattress overlay. DAILY ESTIMATED NEEDS: Needs based on Severely underweight, wounds/ 36kg 35-40 kcals/kg 9183-8024 total kcals 1.5-2 g protein/kg 54-72 g total protein 25-30 mL/kg 900-1080 total fluid mLs NUTRITION DIAGNOSIS: * Swallowing difficulty R/T dysphagia as evidenced by pt is PEG dep. * Increased kcal/prot needs R/T severely underweight status, wound heaing as evidenced by 76% IBW w/ BMI of 15.2, admitted w/ multiple wounds including non-blanching erythema at L elbow, sacrococcyx, BL heels, and DTPI at L Iliac, CURRENT TF:Jevity 1.2 @ 60ml/hr x 20 hrs ENTERAL NUTRITION RECOMMENDATIONS: Jevity 1.2 @ 60ml/hr x 20 hrs to provide 1200ml, 1440kcal, 66g prot, 968ml free water * Maintain IMAGING SCIENCE PROFESSOR TF order of Jevity 1.2- meets 100% est kcal/prot needs * HOB over 30 degrees/ water flush per MD --- With consistently elev BG, rec TF change to Glucerna 1.2 @ 60ml/hr x 20 hrs to meet 1440kcal, 72g prot ADDITIONAL RECOMMENDATIONS: * PER SNF: Ht=61" WT=80lbs * Monitor BGs, need for carb controlled TF and hypoglycemics : pt on Jevity 1.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 Gallbladder and bile ducts: Unremarkable. No calcified stones. No ductal dilation. Pancreas: Unremarkable. No ductal dilation. Spleen: Unremarkable. No splenomegaly. Adrenals: Unremarkable. No mass. Kidneys and ureters: Bilateral nephrolithiasis. There is a 1.4 x 1.3 x 2.1 cm stone in the right renal pelvis. There is right hydronephrosis. Stomach and bowel: Unremarkable. No obstruction. No mucosal thickening. PELVIS: Appendix: The appendix is not identified Bladder: Unremarkable. No stones. Reproductive: Unremarkable as visualized. ABDOMEN and PELVIS: Intraperitoneal space: Unremarkable. No free air. No significant fluid collection. Bones/joints: No acute fracture. No dislocation. Soft tissues: Unremarkable. Vasculature: Unremarkable. No abdominal aortic aneurysm. Lymph nodes: Unremarkable. No enlarged lymph nodes. IMPRESSION: Right hydronephrosis with a 2.1 x 1.4 x 1.3 cm stone in the right renal pelvis. trend labs will monitor (9) Nephrolithiasis (10) Dehydration (11) HELENE (acute kidney injury) (12) Infection due to ESBL-producing Escherichia coli (13) Hemorrhagic cystitis (14) Schizophrenia (15) Altered mental status (16) HTN (hypertension) (17) Abnormal LFTs (18) Noncompliance Alistair Nieves Jan 05, 2020 14:13
--- NOTE | 2020-01-05 20:01 | Nephrology Progress Note ---
Assessment/Plan Problem List: (1) Hydronephrosis (2) Hematuria (3) Nephrolithiasis (4) Obstructive uropathy (5) Dehydration (6) HELENE (acute kidney injury) (7) Infection due to ESBL-producing Escherichia coli (8) CHF (congestive heart failure) (9) Schizophrenia Plan chf better, bun higher stop lasix urine clearing, antibiotics, poor candidate for procedure, acei and coreg, K norrmal, bun still high continue hydration, off diuretic Subjective ROS Limited/Unobtainable: Yes Objective Objective Last 24 Hour Vital Signs Date Time Temp Pulse Resp B/P (MAP) Pulse Ox O2 Delivery O2 Flow Rate FiO2 01/05/20 12:00 97.7 65 20 125/50 (75) 95 01/05/20 10:04 63 104/64 01/05/20 10:04 104/64 01/05/20 09:00 Nasal Cannula 2.0 01/05/20 08:00 98.5 63 20 104/64 (77) 95 01/05/20 04:00 98.5 63 19 108/52 (70) 93 01/05/20 00:00 98.1 60 19 118/59 (78) 98 01/04/20 21:25 66 121/64 01/04/20 21:00 Nasal Cannula 2.0 Intake and Output 01/04/20 01/05/20 19:00 07:00 Intake Total 540 ml 60 ml Output Total 1100 ml Balance 540 ml -1040 ml Intake Free Water 120 ml Tube Feeding 420 ml 60 ml Output Urine Total 1100 ml # Bowel Movements 1 Laboratory Tests 01/05/20 05:43: White Blood Count 7.5, Red Blood Count 3.19L, Hemoglobin 9.0L, Hematocrit 27.7L , Mean Corpuscular Volume 87, Mean Corpuscular Hemoglobin 28.3, Mean Corpuscular Hemoglobin Concent 32.6, Red Cell Distribution Width 14.2, Platelet Count 160, Mean Platelet Volume 7.3, Neutrophils (%) (Auto) 41.8L, Lymphocytes ( %) (Auto) 49.9H, Monocytes (%) (Auto) 6.3, Eosinophils (%) (Auto) 1.3, Basophils (%) (Auto) 0.7, Sodium Level 145, Potassium Level 4.5, Chloride Level 109H, Carbon Dioxide Level 29, Anion Gap 7, Blood Urea Nitrogen 65H, Creatinine 1.3, Estimat Glomerular Filtration Rate 39.5, Glucose Level 129H, Calcium Level 9.1 Height (Feet): 5 Height (Inches): 3.00 Weight (Pounds): 105 General Appearance: no apparent distress, alert, confused EENT: normal ENT inspection Neck: normal alignment Cardiovascular: normal rate Respiratory/Chest: lungs clear Abdomen: non tender Extremities: no edema Neurologic: disoriented Objective less hematuria, continue hydration,iv rate reduced atb per ID García Alcaraz MD Jan 05, 2020 20:01
--- NOTE | 2020-01-06 17:41 | Discharge Summary ---
Discharge Summary Discharge Summary _ DATE OF ADMISSION: 12/24/2019 DATE OF DISCHARGE: 01/05/2020 DISCHARGED BY: Dr. Scales REASON FOR ADMISSION: 79 years old female with past medical history of dysphagia, status post G-tube placement, chronic kidney disease, GERD, contractures, resident of [facility], presented for evaluation of bleeding rectal versus vaginal.. Upon evaluation in emergency room vital signs were stable. Hemoglobin 8.9. Platelet count stable. CT scan of the abdomen and pelvis revealed right hydronephrosis with 2.1 x 1.4 x 1.3 cm stone in the right renal pelvis. Urinalysis revealed gross hematuria, +4 protein , pyuria and many bacteria. Chemistry showed BUN 53, creatinine 1.2. Chest x-ray demonstrated patchy hazy opacity in the periphery of the right upper lung , concerning for underlying pneumonia. Patient was admitted for further management. CONSULTANTS: pulmonary Dr. Bernal urology Dr. Larios ID specialist Dr. Poole GI specialist Dr. Keyes wort extractor Dr[facility]: Patient admitted to medical surgical floor and started on empiric antibiotics. Hemoglobin and hematocrit were closely monitored with goal to keep hemoglobin above 7. Patient started on proton pump inhibitor. Urine culture revealed E. coli ESBL. Antibiotic provided as per ID specialist recommendation. Patient completed treatment for UTI while in the hospital. Patient was tested for COVID-19 by PCR , given chest x-ray with evidence of probable pneumonia. COVID 19 by PCR on 12/24 and 12/27 were not detected. Isolation was discontinued. Supplemental oxygen provided and titrated to keep oximetry above 92%. Nebulizing treatment provided as needed. Patient was followed up with chest x-ray, which revealed a 3 mm right upper lobe nodular opacity, may reflect some residual infiltrate but could also represent a mass lesion. Subsequently CT scan was ordered which was suboptimal , that it was done without intravenous contrast , and patient had suboptimal positioning secondary to multiply contractures. Noted 1.6 cm nodule with spiculated margins at the right upper lobe ; possibility of primary lung malignancy should be considered. Radiologist recommended further evaluation with PET/CT to assess for metabolic activity. Also noted 4 mm ovoid nodule in the superior segment of the left lower lobe. Patient was not a candidate for any surgery or invasive procedure. Patient was clinically stabilizing pulse oximetry on 2 L of oxygen was prior to discharge 95%. Nebulizing treatment provided as needed home medication continued. Blood pressure was managed with current regimen and remained stable. Lasix IV provided with monitoring of volumes and renal parameters. Patient was followed -up with a chest x-ray Antihypertensive medication regimen was optimized to account for hypotension. Hemoglobin and hematocrit were closely monitored with goal to keep hemoglobin above 7.. Patient undergone transfusion 1 unit of packed red blood cells while in the hospital. Prior to discharge hemoglobin 9, hematocrit 27.7. Stool for occult blood was positive x1 and negative x1. Hemoglobin and hematocrit remained stable. Bowel regimen instituted. Aspiration precaution maintained. Tube feeding continued. Patient was on PPI. No overt signs of GI bleeding. There was no family member to sign consent for the procedure. GI specialist recommended consider procedure only if emergent. Renal parameters and electrolytes were closely monitored, electrolytes corrected as needed , nephrotoxins were avoided if possible. The highest creatinine was 1.5. Prior to discharge creatinine 1.3 prior to discharge. Urologist recommended monitor clinically. Patient completed antibiotics Patient had indwelling Bryant catheter which was hand irrigated as needed. Urologist recommended later to attempt voiding trial. Renal function remained stable. Hydronephrosis appeared to be chronic. G-tube feeding formula with goal rate and protein supplements provided as per industrial maintenance instructor recommendation. Wound care for multiply deep tissue injury , present on admission, provided as per surgeon recommendation. Continue wound care at the facility. Patient clinically stabilized and was ready for transfer back to [facility] for continuation of care. FINAL DIAGNOSES: Obstructive uropathy with right-sided hydronephrosis , likely chronic Right-sided nephrolithiasis UTI with a E. coli ESBL Acute kidney injury Pneumonia Possible aspiration Suspected COVID-19 infection -ruled out Dysphagia, feeding by G-tube CHF Pulmonary edema Possible pulmonary nodule Hypertension Encephalopathy Anemia Contracture Malnutrition Hematuria Proteinuria Possibly GI bleeding Probably neurogenic bladder Schizophrenia Decubitus skin ulcer , present on admission DISCHARGE MEDICATIONS: See Medication Reconciliation list. DISCHARGE INSTRUCTIONS: Patient was discharged to the [facility]. Follow up with medical doctor at the facility. I have been assigned to dictate discharge summary for this account. I was not involved in the patient's management. Amina Guidry NP Jan 06, 2020 17:41
== END 2020-01-05 14:21 | DRG 871 ==
LOC: EDBD 18:54 → EMR 19:15 → 4E 20:48 → EDBEDREQ 21:02
PROC: 30233N1 Transfusion of Nonautologous Red Blood Cells into Peripheral Vein, Percutaneous Approach (ICD-10-PCS; principal; 2019-12-29)
DX: A41.9 Sepsis, unspecified organism (principal); J18.9 Pneumonia, unspecified organism; K92.2 Gastrointestinal hemorrhage, unspecified; N39.0 Urinary tract infection, site not specified; N17.9 Acute kidney failure, unspecified; Z43.1 Encounter for attention to gastrostomy; N13.2 Hydronephrosis with renal and ureteral calculous obstruction; G93.40 Encephalopathy, unspecified; Z16.12 Extended spectrum beta lactamase (ESBL) resistance; E46 Unspecified protein-calorie malnutrition; R13.10 Dysphagia, unspecified; F20.9 Schizophrenia, unspecified; B96.20 Unspecified Escherichia coli [E. coli] as the cause of diseases classified elsewhere; I50.9 Heart failure, unspecified; R91.1 Solitary pulmonary nodule; N31.9 Neuromuscular dysfunction of bladder, unspecified; D64.9 Anemia, unspecified; M24.50 Contracture, unspecified joint; R31.9 Hematuria, unspecified; F31.9 Bipolar disorder, unspecified; E86.0 Dehydration; Z86.73 Personal history of transient ischemic attack (TIA), and cerebral infarction without residual deficits; Z88.6 Allergy status to analgesic agent; K29.70 Gastritis, unspecified, without bleeding; R33.9 Retention of urine, unspecified; Z22.322 Carrier or suspected carrier of Methicillin resistant Staphylococcus aureus; Z91.19 Patient's noncompliance with other medical treatment and regimen; L89.90 Pressure ulcer of unspecified site, unspecified stage
CPT/HCPCS: 36415; 36600; 71045; 71250; 74176; 80048; 80053; 81003; 82270; 82803; 82962; 83735; 83880; 84100; 85007; 85025; 86850; 86900; 86901; 86920; 87081; 87086; 87181; 87635; 96365; 99285; J7030; J8499